=== PATIENT | male | born 1950 | race Caucasian/White ===

== ENCOUNTER 2022-12-29 14:29 | Outpatient (OUT) | payer SELFPAY ==
--- NOTE | 2022-12-29 | XR_ITS ---
The [address] [address] Patient Name: SALINAS FLOYD MRN: [id number] date: 1950 Sex: M Assigned Patient Location: [facility] Current Patient Location: Accession/Order Number: [id number] Exam Date: 12/29/2022 15:42 Report Date: 12/30/2022 06:53 At the request of: TAMMY ROY Procedure: XR foot RT min 3V PROCEDURE: XR foot RT min 3V HISTORY: RIGHT FOOT PAIN COMPARISON: None. FINDINGS: BONES:Mild joint space narrowing and periarticular degenerative osteophytes involving the first metatarsophalangeal joint. No fracture, dislocation, bone lesion. SOFT TISSUES:No visible soft tissue swelling. EFFUSION:None visible. OTHER: Atherosclerotic disease. XR/XR foot RT min 3V IMPRESSION: 1. Mild/moderate degenerative joint disease of the first metatarsophalangeal joint. Electronically authenticated by: DAVID HAGEN Date: 12/30/2022 06:53
== END 2022-12-29 14:30 | disposition home or self-care (01) ==
LOC: RAD 14:30
PROVIDERS: Visit Provider Podiatrist Foot & Ankle Surgery
DX: M21.621 Bunionette of right foot (principal)
CPT/HCPCS: 73630

== ENCOUNTER 2023-02-21 12:33 | Outpatient (OUT) | payer MEDICARE, OTHER, SELFPAY ==
--- NOTE | 2023-02-21 13:20 | PM.PRESUREVA ---
History of Present Illness History of Present Illness Chief complaint: bunion right foot, hammer toes right Narrative: Patient presents for preadmission testing with a chief complaint of right foot and toe pain for several months. He states he's been struggling with cellulitis on this extremity as well but he feels this is resolved at this time. The patient states he does have neuropathy with decreased sensation to his feet. He denies extremity weakness. Review of Systems ROS Narrative REVIEW OF SYSTEMS: Negative except as stated in HPI, ten or more systems reviewed. Constitutional: No fever , chills, weakness ENT: No sore throat or epistaxis Cardiovascular: No edema, chest pain, palpitations, or activity intolerance Respiratory: No shortness of breath, cough, or wheezing Gastrointestinal: No abdominal pain, constipation, diarrhea, or vomiting Genitourinary: No dysuria or hematuria Neurological: No numbness, tingling, weakness, or headache Psychiatric: No mood changes PFSH [facility] Medical History (Updated 02/21/23 @ 13:20 by Janey Norman NP) Arthritis ?M19.90 - Unspecified osteoarthritis, unspecified site (ICD-10) Bunionette ?M21.629 - Bunionette of unspecified foot (ICD-10) Cellulitis of lower extremity ?L03.119 - Cellulitis of unspecified part of limb (ICD-10) Colon polyp ?K63.5 - Polyp of colon (ICD-10) COVID-19 ?U07.1 - COVID-19 (ICD-10) Hammertoe ?M20.40 - Other hammer toe(s) (acquired), unspecified foot (ICD-10) High cholesterol ?E78.00 - Pure hypercholesterolemia, unspecified (ICD-10) Hypertension ?I10 - Essential (primary) hypertension (ICD-10) Neuropathy ?G62.9 - Polyneuropathy, unspecified (ICD-10) Peripheral vascular disease ?I73.9 - Peripheral vascular disease, unspecified (ICD-10) Seasonal allergies ?J30.2 - Other seasonal allergic rhinitis (ICD-10) Typical angina ?I20.9 - Angina pectoris, unspecified (ICD-10) Surgical History (Updated 02/21/23 @ 13:00 by Janey Norman NP) H/O colectomy (2003) ?Z90.49 - Acquired absence of other specified parts of digestive tract (ICD-10) History of ankle surgery ?Z98.890 - Other specified postprocedural states (ICD-10) History of cardiac catheterization ?Z98.890 - Other specified postprocedural states (ICD-10) History of carpal tunnel release ?Z98.890 - Other specified postprocedural states (ICD-10) History of colonoscopy ?Z98.890 - Other specified postprocedural states (ICD-10) S/P cataract extraction and insertion of intraocular lens ?Z98.49 - Cataract extraction status, unspecified eye (ICD-10) ?Z96.1 - Presence of intraocular lens (ICD-10) Family History (Updated 02/21/23 @ 13:00 by Janey Norman NP) Other Family history of breast cancer Family history of heart disease Family history of stroke Social History (Updated 02/21/23 @ 12:55 by Janey Norman NP) Within the past year, how often did you have a drink containing alcohol: monthly or less Smoking status: Never smoker Non-prescribed substance use: denies use Highest level of school completed/degree received: high school graduate Meds Home Medications and Allergies Home Medications Medication Instructions Recorded Confirmed Type acetaminophen 500 mg tablet 500 mg PO Q6H PRN pain 02/21/23 02/21/23 History atorvastatin 40 mg tablet 40 mg PO DAILY 02/21/23 02/21/23 History gabapentin 300 mg capsule 300 mg PO Q12H 02/21/23 02/21/23 History isosorbide mononitrate 30 mg 30 mg PO DAILY 02/21/23 02/21/23 History tablet,extended release 24 hr metoprolol tartrate 25 mg tablet 25 mg PO BID 02/21/23 02/21/23 History nitroglycerin 0.4 mg sublingual 0.4 mg buccal Q5M PRN chest pain 02/21/23 02/21/23 History tablet Allergies Allergy/AdvReac Type Severity Reaction Status Date / Time No Known Drug Allergies Allergy Verified 02/21/23 12:51 Exam Narrative Exam Narrative: Constitutional: Awake, alert, comfortable, well-appearing, nontoxic, interactive, vital signs as charted Head: Normocephalic, atraumatic Neck: Supple, normal appearance, normal range of motion, no meningeal signs, no lymphadenopathy Respiratory: No respiratory distress, breath sounds clear Cardiovascular: Regular rate and rhythm, strong and regular heart tones Musculoskeletal: Right foot with toe contractures and he bunion which is tender to palpation, good capillary refill, sensation diminished Psychiatric: Oriented ?3, normal affect Assessment and Plan Assessment and Plan (1) Bunionette: (2) Hammertoe: Plan Correction of tailor's bunionette right foot, arthroplasties of 2nd, 3rd, 4th, and 5th digits right foot scheduled with Dr. Yanes 03/07/2023.
[2023-02-21 13:27] LABS: Anion Gap 13.1; BUN Creatinine Ratio 11.9; Carbon Dioxide 27.6 mmol/L (21.0-32.0); Chloride 103 mmol/L (98-107); Estimated GFR (African America >60 (>=60); Estimated GFR (Non-African Ame 56 (>=60); Glucose 129 mg/dL (74-106); Potassium 3.7 mmol/L (3.5-5.1); Sodium 140 mmol/L (136-145)
--- OUTSIDE RECORDS SUMMARY | 2023-03-22 20:38 | XMS_ITS | CCD ---
Author Name Unknown Address [address] [place] [address] Organization [facility] Care Team Providers Care Drilling Fluids Specialist Name Role Phone FAVIOLA NOLAN Unavailable Unavailable FAVIOLA NOLAN Unavailable Unavailable MUTGI, CHAVEZ Unavailable Unavailable EITAN, CHAVEZ Unavailable Unavailable Taras Wright Primary Care Provider TARAS WRIGHT Primary Care Unavailable JEFFERSON DEWITT Attending Unavailable TARAS WRIGHT Primary Care Unavailable JEFFERSON DEWITT Attending Unavailable TARAS WRIGHT Primary Care Unavailable JEFFERSON DEWITT Referring Unavailable TARAS WRIGHT Primary Care Unavailable TAMMY ROY Admitting Unavailable TAMMY ROY Attending Unavailable Allergies Allergy Classification Reported Allergen(s) Allergy Type Date of Onset Reaction(s) Facility (1 source) 26319,00; Translations: [13344,00] Propensity to adverse reactions (disorder) 0 [facility] Medications Completed/Discontinued Medications Medication Drug Class(es) Dates Sig (Normalized) Sig (Original) aspirin 81 mg delayed release oral tablet (1 source) Platelet Aggregation Inhibitor, Nonsteroidal Anti-inflammatory Drug Start: 11-18-2021 aspirin, enteric coated (ASPIRIN, ENTERIC COATED) 81 mg EC tablet Take 81 mg by mouth. 0 11/18/2021 Active Comment on above: Take 81 mg by mouth. atorvastatin 40 mg oral tablet (1 source) HMG-CoA Reductase Inhibitor Start: 02-10-2022 atorvastatin (LIPITOR) 40 mg tablet empagliflozin 10 mg oral tablet (1 source) Sodium-Glucose Cotransporter 2 Inhibitor Start: 12-03-2021 empagliflozin (JARDIANCE) 10 mg tablet Take 10 mg by mouth. 0 12/03/2021 Active Comment on above: Take 10 mg by mouth. furosemide 40 mg oral tablet (1 source) Loop Diuretic Start: 09-11-2020 furosemide (LA SIX) 40 mg tablet Take by mouth. 0 09/11/2020 Active Comment on above: Take by mouth. gabapentin 300 mg oral capsule (1 source) Anti-epileptic Agent take 1 capsule by mouth twice daily gabapentin (NEURONTIN) 300 mg capsule Take 300 mg by mouth twice daily. 0 Active Comment on above: Take 300 mg by mouth twice daily. 24 hr isosorbide mononitrate 30 mg extended release oral tablet (1 source) Nitrate Vasodilator Start: 02-10-2022 isosorbide mononitrate ER (IMDUR) 30 mg 24 hr tablet metoprolol tartrate 25 mg oral tablet (1 source) beta-Adrenergic Marshall Start: 02-10-2022 take 1 tablet by mouth once daily in the morning, then take 1 tablet by mouth once daily at bedtime metoprolol tartrate, short acting, (LOPRESSOR) 25 mg tablet TAKE 1 TABLET BY MOUTH EVERY MORNING AND 1 EVERY NIGHT AT BEDTIME 0 02/10/2022 Active Comment on above: TAKE 1 TABLET BY MYRNA TH EVERY MORNING AND 1 EVERY NIGHT AT BEDTIME naproxen 250 mg oral tablet (1 source) Nonsteroidal Anti-inflammatory Drug naproxen (NAPROSYN) 250 mg tablet Take 250 mg by mouth. 0 Active Comment on above: Take 250 mg by mouth . Problems Active Problems Problem Classification Problem Date Documented Da te Episodic/Chronic Neoplasms of unspecified nature or uncertain behavior (2 sources) Monoclonal gammopathy of uncertain significance; Translations: [Monoclonal gammopathy] Onset: 04-20-2018 Chronic Other hereditary and degenerative nervous system conditions (1 source) Idiopathic peripheral autonomic neuropathy; Translations: [Other idiopathic peripheral autonomic neuropathy] Chronic Other nervous system disorders (1 source) Neuropathy; Translations: [Polyneuropathy, unspecified] Onset: 04-20-2018 04-20-2018 Chronic Past or Other Problems Problem Classification Problem Date Documented Da te Episodic/Chronic Other aftercare (5 sources) Follow-up examination, following other surgery; Translations: [Encounter for follow-up examination after completed treatment for conditions other than malignant neoplasm] Onset: 07-19-2014 Episodic Other and unspecified benign neoplasm (2 sources) Personal history of colonic polyps; Translations: [Personal history of colonic polyps] Onset: 07-19-2014 Episodic Unclassified (1 source) FOLLOW-UP SURGERY NEC; Translations: [FOLLOW-UP SURGERY NEC] Onset: 07-19-2014 Results Test Name Value Interpretation Reference Range Rere valencia CNOVSMich 04-16-2022 CNOVSP Visit (SP) Office ([facility]) MORRIS BELLE ([id number]) 1950 M Date Time Provider Department 04/16/22 10:00 AM JEFFERSON DEWITT During your visit today, we recorded the following information about you: Temperature Pulse Respiration Blood pressure 97.2 degrees 50/minute 16/minute 133/65 Weight Height 94.2 kg 1.676 m Jefferson Dewitt MD 04/16/2022 10:30 AM Addendum NAME: Morris Belle CLINIC NO.: [id number] DATE OF SERVICE: April 16, 2022 (Bhupendra) Some elements in this clinic note that are critical to medical decision making have been carefully reviewed and included from a prior clinic note dated: April 24, 2021 (Bhupendra) Referring Provider: Taras Wright Additional Clinicians involved in Morris Belle's care: CC: Follow up visit ASSESSMENT: 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 No signs of hypercalcemia, renal failure, anemia, bony lesions. mprotein is low at 0.31 IgG kappa and K/L ratio is now slightly increased. Very unlikely his neuropathy is paraprotein related. Previously IgM was normal. Will monitor Neuropathy No change in neuropathy, no obvious cause. PLAN: 1. Labs 1 week prior to return 2. RTC 1 year HPI: Updated Visit, April 16, 2022: September 2021 was riding his bike and had chest pain. Found a coronary blockage but wasn't stentable. Currently finishing 8 more weeks of cardiac rehab (out of 36). Reviewed labs which remain stable. Occasionally gets an itch that responds to Neurontin. Updated Visit, April 24, 2021: Still very active riding his bike and al his labs are stable including M-Christos. Neuropathy is unchanged overall perhaps a little worse. Affects him worse at night - feels swollen even though it's not. Updated Visit, April 24, 2020: Morris is a 70 year old male who was found to have a MGUS during workup for peripheral neuropathy. He has been followed for several years and his lab results have all been stable except WBC which is elevated. However, his adult son was sick and he may have picked up a upper respiratory infection which he is still suffering through Neuropathy perhaps a little worse - will consider taking gluten out of his diet. We explored the possibility of sleep apnea but he has very few symptoms except for mild daytime somnolence. His neuropathy is consistent with numbness in his feet becca bilateral stocking distribution and he has occasional paresthesias running down his right leg. 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 REVIEW OF SYSTEMS Per HPI and otherwise negative by full review of organ systems. ECOG PERFORMANCE STATUS: 0 PHYSICAL EXAMINATION: Vitals: BP 133/65 Pulse 50 Temp (Src) 97.2 (Temporal) Resp 16 Ht 5' 5.984 (1.68m) Wt 207 lb 9.6 oz (94.2kg) SpO2 94% BMI 33.52 kg/(m2). Body surface area is 2.09 meters squared. Exam limited to gross visualization where appropriate due to COVID-19. Gen.: This is an age-appropriate patient in no acute distress. Head: Appears atraumatic with no visible lesions. Eyes: Pupils equally round and reactive to light, extraocular muscles are intact. Neck: Supple. Mouth: Masked. Respiratory: Appears to be respiring comfortably. Neurologic: Nonfocal to gross visualization. Alert and oriented ?3. Psychiatric: No evidence of inappropriate anxiety or depression. Skin: Visible areas of skin without rash, lesions, wounds or petechiae. ALLERGIES: ALLERGIES No Known Allergies MEDICATIONS: aspirin, enteric coated (ASPIRIN, ENTERIC COATED) 81 mg EC tablet Take 81 mg by mouth. atorvastatin (LIPITOR) 40 mg tablet isosorbide mononitrate ER (IMDUR) 30 mg 24 hr tablet metoprolol tartrate, short acting, (LOPRESSOR) 25 mg tablet TAKE 1 TABLET BY MOUTH EVERY MORNING AND 1 EVERY NIGHT AT BEDTIME naproxen (NAPROSYN) 250 mg tablet Take 250 mg by mouth. gabapentin (NEURONTIN) 300 mg capsule Take 300 mg by mouth twice daily. empagliflozin (JARDIANCE) 10 mg tablet Take 10 mg by mouth. furosemide (LASIX) 40 mg tablet Take by mouth. LABORATORY VALUES: WBC (k/uL) Date Value 04/09/2022 6.52 RBC (m/uL) Date Value 04/09/2022 4.52 Hemoglobin (g/dL) Date Value 04/09/2022 13.5 Hematocrit (%) Date Value 04/09/2022 40.4 MCV (fL) Date Value 04/09/2022 89.4 MCH (pg) Date Value 04/09/2022 29.9 MCHC (g/dL) Date Value 04/09/2022 33.4 RDW-CV (%) Date Value 04/09/2022 12.9 Platelet Count (k/uL) Date Value 04/09/2022 172 MPV (fL) Date Value 04/09/2022 10.9 Glucose (mg/dL) Date Value 04/09/2022 117 (H) BUN (mg/dL) Date Value 04/09/2022 22 Creatinine (mg/dL) Date Value 04/09/2022 1.14 Sodium (mmol/L) Date Value 04/09/2022 139 Potassium (mmol/L) Date Value 04/09/2022 4.3 Chloride (mmol/L) Date Value (more content not included)... Normal [facility] B2 Microglob SerPl-mCncon Kfnt-2-Kisxkypuaqasg [Mass/Vol] 2.4 ug/mL Normal <3.1 [facility] Comment on above: Order Comment: Speci men Type: BLOOD SPECIMEN Ordering Facility: [facility] Address: [address] [id number] Result Comment: Beta -2 Microglobulin test is performed using the [employer] immunoturbidimetric method. Results obtained with different methods or kits cannot be used interchangeably. Performed By: #### 1 952-1, 3016-3 #### [facility] CLIA [id number] [address] [facility] DESK [id number] CBC W Auto Differential pane l (Bld)on 04-09-2022 Basophils (Bld) [#/Vol] 0.08 10*3/uL Normal <0.11 [facility] Comment on above: Order Comment: Speci men Type: BLOOD SPECIMEN Ordering Facility: [facility] Address: [address] [address] Performed By: #### 5 7021-8 #### [facility] CLIA [id number] [address] [place] [address]2627 Basophils/100 WBC (Bld) 1.2 % Normal [facility] Comment on above: Order Comment: Speci men Type: BLOOD SPECIMEN Ordering Facility: [facility] Address: [address] [place] [address] Performed By: #### 5 7021-8 #### [facility] CLIA [id number] [address] [place] [address] 46775 Differential cell count method Nom (Bld) Auto Normal [facility] Comment on above: Order Comment: Speci men Type: BLOOD SPECIMEN Ordering Facility: [facility] Address: [address] [address] Performed By: #### 5 7021-8 #### [facility] CLIA [id number] [address] [place] [address] 20128 Eosinophils (Bld) [#/Vol] 0.27 10*3/uL Normal <0.46 [facility] Comment on above: Order Comment: Speci men Type: BLOOD SPECIMEN Ordering Facility: [facility] Address: [address] [address] Performed By: #### 5 7021-8 #### [facility] CLIA [id number] [address] [place] [address] 75638 Eosinophils/100 WBC (Bld) 4.1 % Normal [facility] Comment on above: Order Comment: Speci men Type: BLOOD SPECIMEN Ordering Facility: [facility] Address: [address] [address] Performed By: #### 5 7021-8 #### [facility] CLIA [id number] [address] [place] [address] Erythrocyte distribution wid th (RBC) [Ratio] 12.9 % Normal 11.5-15.0 [facility] Comment on above: Order Comment: Speci men Type: BLOOD SPECIMEN Ordering Facility: [facility] Address: [address] [place] [address] Performed By: #### 5 7021-8 #### [facility] CLIA [id number] [address] [place] [address] 64031 Hematocrit (Bld) [Volume fraction] 40.4 % Normal 3 9.0-51.0 [facility] Comment on above: Order Comment: Speci men Type: BLOOD SPECIMEN Ordering Facility: [facility] Address: [address] [place] [address] Performed By: #### 5 7021-8 #### [facility] CLIA [id number] [address] [place] [address] 98302 Hemoglobin (Bld) [Mass/Vol] 13.5 g/dL Normal 13.0-17. 0 [facility] Comment on above: Order Comment: Speci men Type: BLOOD SPECIMEN Ordering Facility: [facility] Address: [address] [place] [address] Performed By: #### 5 7021-8 #### [facility] CLIA [id number] [address] [place] [address] 62032 Immature granulocytes (Bld) [#/Vol] 10*3/uL Normal <0.10 [facility] Comment on above: Order Comment: Speci men Type: BLOOD SPECIMEN Ordering Facility: [facility] Address: [address] [place], [place] [address] Performed By: #### 5 7021-8 #### [facility] CLIA [id number] [address] [place] [address] 58829 Immature granulocytes/100 WBC (Bld) 0.3 % Normal [facility] Comment on above: Order Comment: Speci men Type: BLOOD SPECIMEN Ordering Facility: [facility] Address: [address] [address] Performed By: #### 5 7021-8 #### [facility] CLIA [id number] [address] [place] [address] 77382 Lymphocytes (Bld) [#/Vol] 2.90 10*3/uL Normal 1.00-4.0 0 [facility] Comment on above: Order Comment: Speci men Type: BLOOD SPECIMEN Ordering Facility: [facility] Address: [address] [address] Performed By: #### 5 7021-8 #### [facility] CLIA [id number] [address] [place] [address] 80777 Lymphocytes/100 WBC (Bld) 44.5 % Normal [facility] Comment on above: Order Comment: Speci men Type: BLOOD SPECIMEN Ordering Facility: [facility] Address: [address] [address] Performed By: #### 5 7021-8 #### [facility] CLIA [id number] [address] [place] [address] 99257 MCH (RBC) [Entitic mass] 29.9 pg Normal 26.0-34.0 [facility] Comment on above: Order Comment: Speci men Type: BLOOD SPECIMEN Ordering Facility: [facility] Address: [address] [address] Performed By: #### 5 7021-8 #### [facility] CLIA [id number] [address] [place] [address] 71993 MCHC (RBC) [Mass/Vol] 33.4 g/dL Normal 30.5-36.0 [facility] Comment on above: Order Comment: Speci men Type: BLOOD SPECIMEN Ordering Facility: [facility] Address: [address] [address] Performed By: #### 5 7021-8 #### [facility] CLIA [id number] [address] [place] [address] 15825 MCV (RBC) [Entitic vol] 89.4 fL Normal 80.0-100.0 [facility] Comment on above: Order Comment: Speci men Type: BLOOD SPECIMEN Ordering Facility: [facility] Address: [address] [address] Performed By: #### 5 7021-8 #### [facility] CLIA [id number] [address] [place] [address] 06359 Monocytes (Bld) [#/Vol] 0.80 10*3/uL Normal <0.87 [facility] Comment on above: Order Comment: Speci men Type: BLOOD SPECIMEN Ordering Facility: [facility] Address: [address] [address] Performed By: #### 5 7021-8 #### [facility] CLIA [id number] [address] [place] [address] 56202 Monocytes/100 WBC (Bld) 12.3 % Normal [facility] Comment on above: Order Comment: Speci men Type: BLOOD SPECIMEN Ordering Facility: [facility] Address: [address] [address] Performed By: #### 5 7021-8 #### [facility] CLIA [id number] [address] [place] [address] 21550 Neutrophils (Bld) [#/Vol] 2.45 10*3/uL Normal 1.45-7.5 0 [facility] Comment on above: Order Comment: Speci men Type: BLOOD SPECIMEN Ordering Facility: [facility] Address: [address] [address] Performed By: #### 5 7021-8 #### [facility] CLIA [id number] [address] [place] [address] 29696 Neutrophils/100 WBC (Bld) 37.6 % Normal [facility] Comment on above: Order Comment: Speci men Type: BLOOD SPECIMEN Ordering Facility: [facility] Address: [address] [place] [address] Performed By: #### 5 7021-8 #### [facility] CLIA [id number] [address] [place] [address] 24072 Nucleated RBC (Bld) [#/Vol] 10*3/uL Normal <0.01 [facility] Comment on above: Order Comment: Speci men Type: BLOOD SPECIMEN Ordering Facility: [facility] Address: [address] [address] Performed By: #### 5 7021-8 #### [facility] CLIA [id number] [address] [place] [address] 11808 Nucleated RBC/100 WBC (Bld) [Ratio] 0.0 /100 WBC Normal [facility] Comment on above: Order Comment: Speci men Type: BLOOD SPECIMEN Ordering Facility: [facility] Address: [address] [address] Performed By: #### 5 7021-8 #### [facility] CLIA [id number] [address] [place] [address] 68174 Platelet mean volume (Bld) [Entitic vol] 10.9 fL Normal 9.0-12.7 [facility] Comment on above: Order Comment: Speci men Type: BLOOD SPECIMEN Ordering Facility: [facility] Address: [address] [address] Performed By: #### 5 7021-8 #### [facility] CLIA [id number] [address] [place] [address] 27344 Platelets (Bld) [#/Vol] 172 10*3/uL Normal 150-400 [facility] Comment on above: Order Comment: Speci men Type: BLOOD SPECIMEN Ordering Facility: [facility] Address: [address] Performed By: #### 5 7021-8 #### [facility] CLIA [id number] [address] [place] [address] 48413 RBC (Bld) [#/Vol] 4.52 10*6/uL Normal 4.20-6.00 [facility] Comment on above: Order Comment: Speci men Type: BLOOD SPECIMEN Ordering Facility: [facility] Address: [address] Performed By: #### 5 7021-8 #### [facility] CLIA [id number] [address] [place] [address] 10449 WBC (Bld) [#/Vol] 6.52 10*3/uL Normal 3.70-11.00 [facility] Comment on above: Order Comment: Speci men Type: BLOOD SPECIMEN Ordering Facility: [facility] Address: [address] Performed By: #### 5 7021-8 #### [facility] CLIA [id number] [address] [place] [address] 39180 Calcium.ionized [Moles/Vol]o n 04-09-2022 Calcium.ionized (Bld) [Mass/Vol] 1.06 mmol/L Low 1. 08-1.30 [facility] Comment on above: Order Comment: Speci men Type: BLOOD SPECIMEN Ordering Facility: [facility] Address: [address] Performed By: #### 1 995-0 #### [facility] CLIA [id number] [address] [place] [address] [place] Calcium.ionized adjusted to pH 7.4 (Bld) [Moles/Vol] 1.02 mmol/L Low 1.08-1.30 [facility] Comment on above: Order Comment: Speci men Type: BLOOD SPECIMEN Ordering Facility: [facility] Address: [address] Performed By: #### 1 995-0 #### [facility] CLIA [id number] [address] [place] [address] [place] Comprehensive metabolic 2000 panelon 04-09-2022 Albumin [Mass/Vol] 4.5 g/dL Normal 3.9-4.9 [facility] Comment on above: Order Comment: Speci men Type: BLOOD SPECIMEN Ordering Facility: [facility] Address: [address] Performed By: #### 2 885-2, 2283-11, 2131-12 #### [facility] CLIA [id number] [address] [place] [address] [place] ALP [Catalytic activity/Vol] 57 U/L Normal 38-113 [facility] Comment on above: Order Comment: Speci men Type: BLOOD SPECIMEN Ordering Facility: [facility] Address: [address] Performed By: #### 2 885-2, 2283-11, 2131-12 #### [facility] CLIA [id number] [address] [place] [address] [place] ALT [Catalytic activity/Vol] 27 U/L Normal 10-54 [facility] Comment on above: Order Comment: Speci men Type: BLOOD SPECIMEN Ordering Facility: [facility] Address: [address] [place], [place] [address] Performed By: #### 2 885-2, 2283-11, 2131-12 #### [facility] CLIA [id number] [address] [place] [address] [place] Anion gap [Moles/Vol] 8 mmol/L Low 9-18 [facility] Comment on above: Order Comment: Speci men Type: BLOOD SPECIMEN Ordering Facility: [facility] Address: [address] Performed By: #### 2 885-2, 2283-11, 2131-12 #### [facility] CLIA [id number] [address] [place] [address] [place] AST [Catalytic activity/Vol] 32 U/L Normal 14-40 [facility] Comment on above: Order Comment: Speci men Type: BLOOD SPECIMEN Ordering Facility: [facility] Address: [address] [id number] Performed By: #### 2 885-2, 8, 2131-12 #### [facility] CLIA [id number] [address] [place], [place] [address] [place] Bilirubin [Mass/Vol] 0.5 mg/dL Normal 0.2-1.3 [facility] Comment on above: Order Comment: Speci men Type: BLOOD SPECIMEN Ordering Facility: [facility] Address: [address] [place] [address] Performed By: #### 2 885-2, 8, 2131-12 #### [facility] CLIA [id number] [address] [place] [address] [place] Calcium [Mass/Vol] 8.0 mg/dL Low 8.5-10.2 [facility] Comment on above: Order Comment: Speci men Type: BLOOD SPECIMEN Ordering Facility: [facility] Address: [address] [place] [address] Performed By: #### 2 885-2, 2283-11, 2131-12 #### [facility] CLIA [id number] [address] [place] [address] [place] Chloride [Moles/Vol] 105 mmol/L Normal 97-105 [facility] Comment on above: Order Comment: Speci men Type: BLOOD SPECIMEN Ordering Facility: [facility] Address: [address] [id number] Performed By: #### 2 885-2, 8, 2131-12 #### [facility] CLIA [id number] [address] [place], [place] [address] [place] CO2 [Moles/Vol] 26 mmol/L Normal 22-30 [facility] Comment on above: Order Comment: Speci men Type: BLOOD SPECIMEN Ordering Facility: [facility] Address: [address] [place] [address] Performed By: #### 2 885-2, 4-8, 2131-12 #### [facility] CLIA [id number] [address] [place] [address] [place] Creatinine [Mass/Vol] 1.14 mg/dL Normal 0.73-1.22 [facility] Comment on above: Order Comment: Zeeshan bolden Type: BLOOD SPECIMEN Ordering Facility: [facility] Address: [address] [address] Performed By: #### 2 885-2, 8, 2131-12 #### [facility] CLIA [id number] [address] [place] [address] [place] ESTIMATED GLOMERULAR FILTRATION RATE 69 mL/min/1.73m??? Normal >=60 [facility] Comment on above: Order Comment: Zeeshan bolden Type: BLOOD SPECIMEN Ordering Facility: [facility] Address: [address] [place] [address] Result Comment: Comfort mated Glomerular Filtration Rate (eGFR) is calculated using the 2020 CKD-EPI creatinine equation. This equation utilizes serum creatinine, sex, and age as parameters. The creatinine assay has traceable calibration to isotope dilution-mass spectrometry. Refer to KDIGO guidelines for clinical interpretation. In patients with unstable renal function, e.g. those with acute kidney injury, the eGFR may not accurately reflect actual GFR. Performed By: #### 2 885-2, 8, 2131-12 #### [facility] CLIA [id number] [address] [place] [address] [place] Glucose [Mass/Vol] 117 mg/dL High 74-99 [facility] Comment on above: Order Comment: Zeeshan bolden Type: BLOOD SPECIMEN Ordering Facility: [facility] Address: [address] Result Comment: The [place] Diabetes Association (ADA) provides guidance for cutoff values for fasting glucose and random glucose. The ADA defines fasting as no caloric intake for at least 8 hours. Fasting plasma glucose results between 100 to 125 mg/dL indicate increased risk for diabetes (prediabetes). Fasting plasma glucose results greater than or equal to 126 mg/dL meet the criteria for diagnosis of diabetes. In the absence of unequivocal hyperglycemia, results should be confirmed by repeat testing. In a patient with classic symptoms of hyperglycemia or hyperglycemic crisis, random plasma glucose results greater than or equal to 200 mg/dL meet the criteria for diagnosis of diabetes. Reference: Standards of Medical Care in Diabetes 2016, [place] Diabetes Association. Diabetes Care. 2016.39(Suppl 1). Performed By: #### 2 885-2, 2283-11, 2131-12 #### [facility] CLIA [id number] [address] [place] [address] [place] Potassium [Moles/Vol] 4.3 mmol/L Normal 3.7-5.1 [facility] Comment on above: Order Comment: Speci men Type: BLOOD SPECIMEN Ordering Facility: [facility] Address: [address] Performed By: #### 2 885-2, 2283-11, 2131-12 #### [facility] CLIA [id number] [address] [place] [address] [place] Protein [Mass/Vol] 7.0 g/dL Normal 6.3-8.0 [facility] Comment on above: Order Comment: Speci men Type: BLOOD SPECIMEN Ordering Facility: [facility] Address: [address] Performed By: #### 2 885-2, 2283-11, 2131-12 #### [facility] CLIA [id number] [address] [place] [address] [place] Sodium [Moles/Vol] 139 mmol/L Normal 136-144 [facility] Comment on above: Order Comment: Speci men Type: BLOOD SPECIMEN Ordering Facility: [facility] Address: [address] [place] [address] Performed By: #### 2 885-2, 2283-11, 2131-12 #### [facility] CLIA [id number] [address] [place] [address] [place] Urea nitrogen [Mass/Vol] 22 mg/dL Normal 9-24 [facility] [place] [facility] Comment on above: Order Comment: Speci yuan Type: BLOOD SPECIMEN Ordering Facility: [facility] Address: [address] [place] [address] Performed By: #### 2 885-2, 8, 2131-12 #### [facility] CLIA [id number] [address] [place] [address] [place] Folate [facility] 04-[facility]-19 23 Folate [Mass/Vol] ng/mL Normal >4.7 [facility] Comment on above: Order Comment: Specgiulia bolden Type: BLOOD SPECIMEN Ordering Facility: [facility] Address: [address] [place] [address] Result Comment: A re sult of > 20 ng/mL is not necessarily indicative of a pathologic or treatable condition: it reflects a limitation of the test methodology. Assay reference range: 4.8 to 24.2 ng/mL. Suitable for detection of folate deficiency. Reference: Folate III (Folate III) [package insert V 1.0 Moroccan]. [facility], [place], [place]: February 2015. Performed By: #### 2 885-2, 8, 2131-12 #### [facility] CLIA [id number] [address] [place] [address] [place] IMMUNOFIXATION SCREEN, SERUM on 04-09-2022 INTERPRETATION (MPA) Atypical restricted bands are present in the IgG and kappa regions. Consistent with IgG kappa monoclonal gammopathy. Normal [facility] Comment on above: Order Comment: Speci men Type: BLOOD SPECIMEN Ordering Facility: [facility] Address: [address] [place] [address] Performed By: #### I [facility] #### [facility] CLIA [id number] [id number] MPA RESULT M protein is present. Abnormal No M p rotein is identified. [facility] Comment on above: Order Comment: Speci men Type: BLOOD SPECIMEN Ordering Facility: [facility] Address: [address] [place], [place] [address] Performed By: #### I FESC #### [facility] CLIA [id number] [address] STAFF REVIEW (MPA) Reviewed by Annel Frye M.D., Ph.D Normal [facility] Comment on above: Order Comment: Speci men Type: BLOOD SPECIMEN Ordering Facility: [facility] Address: [address] [place] [address] Performed By: #### I FES #### [facility] CLIA [id number] [address] [place] [address] [place] IMMUNOGLOBULINS GAMon 2022 IgA [Mass/Vol] 244 mg/dL Normal 70-400 [facility] Comment on above: Order Comment: Speci men Type: BLOOD SPECIMEN Ordering Facility: [facility] Address: [address] [place], [place] [address] Performed By: #### S ERIMM #### [facility] CLIA [id number] [address] [place] [address] [place] IgG [Mass/Vol] 1005 mg/dL Normal 700-1600 [facility] Comment on above: Order Comment: Speci men Type: BLOOD SPECIMEN Ordering Facility: [facility] Address: [address] [place], [place] [address] Performed By: #### S ERIMM #### [facility] CLIA [id number] [address] [place] [address] [place] IgM [Mass/Vol] 39 mg/dL Low 40-230 [facility] Comment on above: Order Comment: Speci men Type: BLOOD SPECIMEN Ordering Facility: [facility] Address: [address] [place], [place] [address] Performed By: #### S ERMARILYNM #### [facility] CLIA [id number] [address] [place] [address] [place] KAPPA/SERRATO,FREE,SERon 2022 Immunoglobulin light chains.kappa.free (S) [Mass/Vol] 26.8 mg/L High 3.3-19.4 [facility] Comment on above: Order Comment: Speci men Type: BLOOD SPECIMEN Ordering Facility: [facility] Address: [address] [place] [address] Result Comment: Rare ly, increased serum free light chains levels may not be detected or accurately quantified due to prozone phenomenon or in high viscosity samples using this immunoturbidimetric assay. Correlation with other laboratory results and clinical findings is recommended. The [place] Free Light Chain was performed using the Binding Site Optilite immunoturbidimetric method. Result obtained with different assay methods or kits cannot be used interchangeably. Performed By: #### 2 885-2, 2284-8, 2131-12 #### [facility] CLIA [id number] [address] [place] [address] [place] Immunoglobulin light chains.kappa/Immunoglobulin light chains.lambda (S) [Mass ratio] 1.68 High 0.26-1.[address] [facility] Comment on above: Order Comment: Speci men Type: BLOOD SPECIMEN Ordering Facility: [facility] Address: [address] [place], [place] [address] Performed By: #### 2 885-2, 2284-8, 2131-12 #### [facility] CLIA [id number] [address] [place] [address] [place] Immunoglobulin light chains.lambda.free [Mass/Vol] 16.0 mg/L Normal 5.7-26.3 [facility] Comment on above: Order Comment: Speci men Type: BLOOD SPECIMEN Ordering Facility: [facility] Address: [address] [place], [place] [address] Result Comment: Rare ly, increased serum free light chains levels may not be detected or accurately quantified due to prozone phenomenon or in high viscosity samples using this immunoturbidimetric assay. Correlation with other laboratory results and clinical findings is recommended. The [place] Free Light Chain was performed using the Binding Site Optilite immunoturbidimetric method. Result obtained with different assay methods or kits cannot be used interchangeably. Performed By: #### 2 885-2, 22848, 2131-12 #### [facility] CLIA [id number] [address] [place] [address] [place] LDH SerPl-cCncon 04-09-2022 LDH [Catalytic activity/Vol] 290 U/L High 135-225 [facility] Comment on above: Order Comment: Zeeshan bolden Type: BLOOD SPECIMEN Ordering Facility: [facility] Address: [address] [place] [address] Result Comment: Hemo lysis present. The origin of the hemolysis, in vitro versus an in vivo hemolytic process, cannot be distinguished via this assay alone. In vitro hemolysis may lead to non-physiological (spurious) elevation in lactate dehydrogenase (LDH) results. The result should be interpreted in context of the clinical setting and other test results. Suggest reorder as clinically indicated. Performed By: #### 2 885-2, 2283-11, 2131-12 #### [facility] CLIA [id number] [address] [place] [address] [place] PROTEIN ELECTROPHORESIS SERU M (P)on 04-09-2022 Albumin [Mass/Vol] 4.15 g/dL Normal 3.43-5.41 [facility] Comment on above: Order Comment: Zeeshan bolden Type: BLOOD SPECIMEN Ordering Facility: [facility] Address: [address] [place] [address] Performed By: #### L [id number] #### [facility] CLIA [id number] [address] [place] [address] [place] Alpha 1 globulin Elph [Mass/Vol] 0.23 g/dL Normal 0.18-0.43 [facility] Comment on above: Order Comment: Speci men Type: BLOOD SPECIMEN Ordering Facility: [facility] Address: [address] Performed By: #### L [id number] #### [facility] CLIA [id number] [address] [place] [address] [place] Alpha 2 globulin Elph [Mass/Vol] 0.80 g/dL Normal 0.42-0.98 [facility] Comment on above: Order Comment: Speci men Type: BLOOD SPECIMEN Ordering Facility: [facility] Address: [address] Performed By: #### L [id number] #### [facility] CLIA [id number] [address] [place] [address] [place] Beta globulin Elph [Mass/Vol] 0.83 g/dL Normal 0.61-1 .17 [facility] Comment on above: Order Comment: Speci men Type: BLOOD SPECIMEN Ordering Facility: [facility] Address: [address] Performed By: #### L [id number] #### [facility] CLIA [id number] [address] [place] [address] [place] Gamma globulin Elph [Mass/Vol] 0.89 g/dL Normal 0.53- 1.51 [facility] Comment on above: Order Comment: Speci men Type: BLOOD SPECIMEN Ordering Facility: [facility] Address: [address] [place] [address] Performed By: #### L [id number] #### [facility] CLIA [id number] [address] [place] [address] [place] INTERPRETATION COMMENT FOR PROTEIN ELECTROPHORESIS See separate immunofixation report for characterization of monoclonal gammopathy. Normal [facility] Comment on above: Order Comment: Speci men Type: BLOOD SPECIMEN Ordering Facility: [facility] Address: [address] Performed By: #### L [id number] #### [facility] CLIA [id number] [address] [place] M-PROTEIN LOCATION Gamma Fraction 1 Normal [facility] Comment on above: Order Comment: Speci men Type: BLOOD SPECIMEN Ordering Facility: [facility] Address: [address] [place], [place] [address] Performed By: #### L [id number] #### [facility] CLIA [id number] [address] [place] Protein Fractions [Interp] An M protein is identified on protein electrophoresis. Abnormal No definitive M protein is identified on protein electrophoresis. [facility] Comment on above: Order Comment: Speci men Type: BLOOD SPECIMEN Ordering Facility: [facility] Address: [address] [place] [address] Performed By: #### L [id number] #### [facility] CLIA [id number] [address] [place] [address] [place] Protein.monoclonal Elph [Mass/Vol] 0.31 g/dL High < =0.00 [facility] Comment on above: Order Comment: Speci men Type: BLOOD SPECIMEN Ordering Facility: [facility] Address: [address] [place], [place] [address] Performed By: #### L [id number] #### [facility] CLIA [id number] [address] [place] [address] [place] SPE STAFF REVIEW Reviewed by Annel Frye M.D., Ph.D Normal [facility] Comment on above: Order Comment: Speci men Type: BLOOD SPECIMEN Ordering Facility: [facility] Address: [address] [place], [place] [address] Performed By: #### L [id number] #### [facility] CLIA [id number] [facility] [place] [address] [place] Phosphate SerPl-mCncon 04-09 Phosphate [Mass/Vol] 4.7 mg/dL Normal 2.7-4.8 [facility] Comment on above: Order Comment: Speci men Type: BLOOD SPECIMEN Ordering Facility: [facility] Address: [address] [place] [address] Performed By: #### 2 885-2, 2283-8, 2131-12 #### [facility] CLIA [id number] [address] [place] [address] [place] Prot SerPl-mCncon 04-09-2022 Protein [Mass/Vol] 6.9 g/dL Normal 6.3-8.0 [facility] Comment on above: Order Comment: Speci men Type: BLOOD SPECIMEN Ordering Facility: [facility] Address: [address] [place] [address] Performed By: #### 2 885-2, 8, 2131-12 #### [facility] CLIA [id number] [address] [place] [address] [place] TSH SerPl-aCncon 04-09-2022 TSH Qn 1.920 m[IU]/L Normal 0.270-4.200 [facility] Comment on above: Order Comment: Speci men Type: BLOOD SPECIMEN Ordering Facility: [facility] Address: [address] [place] [address] Performed By: #### 1 952-1, 3016-3 #### [facility] CLIA [id number] [address] [place] [address] [place] Urate SerPl-mCncon Urate [Mass/Vol] 6.3 mg/dL Normal 4.0-8.1 [facility] Comment on above: Order Comment: Speci men Type: BLOOD SPECIMEN Ordering Facility: [facility] Address: [address] [place] [address] Performed By: #### 2 885-2, 2284-2131-12 #### [facility] CLIA [id number] [address] [place] [id number] [facility] [place] Vit B12 SerPl-ncon 023 Cobalamin (Vitamin B12) [Mass/Vol] 806 pg/mL Normal 232-1245 [facility] Comment on above: Order Comment: Speci men Type: BLOOD SPECIMEN Ordering Facility: [facility] Address: [address] [place] [address] Performed By: #### 2 885-2, 228-8, 2131-12 #### [facility] CLIA [id number] [address] [facility] CNOVSPon 04-24-2021 CNOVSP Visit (SP) Office (H EMASA) MORRIS BELLE ([id number]) 1950 M Date Time Provider Department 04/24/21 9:15 AM JEFFERSON DEWITT During your visit today, we recorded the following information about you: Temperature Pulse Respiration Blood pressure 97.8 degrees 65/minute 16/minute 152/77 Weight Height 91.9 kg 1.676 m Jefferson Dewitt MD 04/24/2021 9:44 AM Signed NAME: Morris Belle CLINIC NO.: [id number] DATE OF SERVICE: April 24, 2021 Some elements in this clinic note that are critical to medical decision making have been carefully reviewed and included from a prior clinic note dated: April 24, 2020 Referring Provider: Taras Wright Additional Clinicians involved in Morris Belle's care: CC: Transition of care ASSESSMENT: 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 No signs of hypercalcemia, renal failure, anemia, bony lesions. mprotein is low at 0.28 IgGkappa and normal K/L ratio. Very unlikely his neuropathy is paraprotein related. Previously IgM was normal. Will monitor without additional Neuropathy Advancing neuropathy, no obvious cause. Consider gluten sensitivity. PLAN: 1. Labs 1 week prior to return 2. RTC 1 year HPI: Updated Visit, April 24, 2021: Still very active riding his bike and al his labs are stable including M-Christos. Neuropathy is unchanged overall perhaps a little worse. Affects him worse at night - feels swollen even though it's not. Updated Visit, April 24, 2020: Morris is a 70 year old male who was found to have a MGUS during workup for peripheral neuropathy. He has been followed for several years and his lab results have all been stable except WBC which is elevated. However, his adult son was sick and he may have picked up a upper respiratory infection which he is still suffering through Neuropathy perhaps a little worse - will consider taking gluten out of his diet. We explored the possibility of sleep apnea but he has very few symptoms except for mild daytime somnolence. His neuropathy is consistent with numbness in his feet becca bilateral stocking distribution and he has occasional paresthesias running down his right leg. 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 REVIEW OF SYSTEMS Per HPI and otherwise negative by full review of organ systems. ECOG PERFORMANCE STATUS: 0 PHYSICAL EXAMINATION: Vitals: BP 152/77 Pulse 65 Temp (Src) 97.8 (Temporal) Resp 16 Ht 5' 5.984 (1.68m) Wt 202 lb 9.6 oz (91.9kg) SpO2 96% BMI 32.72 kg/(m2). Body surface area is 2.07 meters squared. Exam limited to gross visualization where appropriate due to COVID-19. Gen.: This is an age-appropriate patient in no acute distress. Head: Appears atraumatic with no visible lesions. Eyes: Pupils equally round and reactive to light, extraocular muscles are intact. Neck: Supple. Mouth: Masked. Respiratory: Appears to be respiring comfortably. Neurologic: Nonfocal to gross visualization. Alert and oriented ?3. Psychiatric: No evidence of inappropriate anxiety or depression. Skin: Visible areas of skin without rash, lesions, wounds or petechiae. ALLERGIES: ALLERGIES No Known Allergies MEDICATIONS: gabapentin (NEURONTIN) 300 mg capsule Take 300 mg by mouth twice daily. LABORATORY VALUES: Hemoglobin (g/dL) Date Value 04/17/2021 14.7 Hematocrit (%) Date Value 04/17/2021 47.7 WBC (k/uL) Date Value 04/17/2021 8.69 DIAGNOSIS: (D47.2) MGUS (monoclonal gammopathy of unknown significance) (primary encounter diagnosis) Plan: B2 MICROGLOBULIN B, CBC + DIFF, COMP METABOLIC PANEL, LD LACTATE DEHYDRO, PHOSPHORUS INORGANIC, PROTEIN ELECTROPHORESIS SERUM W/INTERP, MONOCLONAL PROTEIN, SERUM (BLOOD), URIC ACID BLOOD, CALCIUM IONIZED B, KAPPA/SERRATO,FREE,SER, VITAMIN B12 BLOOD, FOLATE SERUM, TSH BLD (G90.09) Idiopathic peripheral autonomic neuropathy Plan: PROTEIN ELECTROPHORESIS SERUM W/INTERP, MONOCLONAL PROTEIN, SERUM (BLOOD), VITAMIN B12 BLOOD (E03.9) Hypothyroidism, unspecified type Plan: TSH BLD No past medical history on file. No past surgical history on file. Social History Tobacco Use - Smoking status: Never Smoker - Smokeless tobacco: Never Used Substance Use Topics - Alcohol use: No - Drug use: Not on file No family history on file. Jefferson Dewitt MD, CPE [place], [place] CC: Taras Wright MD ([facility]) [address] [facility] [address] Referring Provider: SELF [200] Allergies As of Date: 04/24/2021 (No Known Allergies) Date Reviewed: 04/24/2021 Reviewed by: Ester Beck - Fully Assessed Reason for Visit: MGUS [Other] Cmt: 1 year follow up Primary Visit Diagnosis:MGUS (monoclonal gammopathy of unknown significance) [D47.2] Other Visit Diagnoses:Idiopathic peripher (more content not included)... Normal [facility] B2 Microglobulinon B2 Microglobulin 1.8 mg/L Normal <3.1 [facility] Comment on above: Performed By: #### 2 885-2, 2284-8, 2132-9 #### [facility] CLIA [id number] [address] [place] [address] [place] Basic Metabolic Panlon 01-14 -2022 Anion gap [Moles/Vol] 15 mmol/L Normal 9-18 [facility] Comment on above: Performed By: #### 5 7021-8 #### [facility] CLIA [id number] [address] [place] [address] Calcium [Mass/Vol] 9.1 mg/dL Normal 8.5-10.2 [facility] Comment on above: Performed By: #### 5 7021-8 #### [facility] CLIA [id number] [address] [place] [address] Chloride [Moles/Vol] 100 mmol/L Normal 97-105 [facility] Comment on above: Performed By: #### 5 7021-8 #### [facility] CLIA [id number] [address] [place] [address] CO2 [Moles/Vol] 26 mmol/L Normal 22-30 [facility] Comment on above: Performed By: #### 5 7021-8 #### [facility] CLIA [id number] [address] [place] [address] Creatinine [Mass/Vol] 1.11 mg/dL Normal 0.73-1.22 [facility] Comment on above: Performed By: #### 5 7021-8 #### [facility] CLIA [id number] [address] [place] [address] eGFR- Amer. >60 Normal [facility] Comment on above: Performed By: #### 5 7021-8 #### [facility] CLIA [id number] [address] [place] [address] eGFR-All Other Races >60 Normal [facility] Comment on above: Result Comment: eGFR (Estimated GFR) Units of measure: mL/min/1.73 meters squared eGFR is derived from the reexpressed MDRD Study equation using the following parameters: serum creatinine, age, gender and race. The creatinine assay has been calibrated to be traceable to IDMS. An eGFR <60 mL/min/1.73m2 for >3 months is consistent with chronic kidney disease. Refer to KDOQI guidelines for clinical interpretation. In patients with unstable renal function, e.g. those with acute kidney injury, the eGFR may not accurately reflect actual GFR. Note: On 05/30/2021, the eGFR calculation will be updated to the NKF-ASN Task Force recommended 2020 CKD-EPI creatinine equation which does not include a race variable. For more information or to access a 2020 CKD-EPI calculator, visit the National Kidney Foundation website at kidney.org/professionals/kdoqi/gfr_calculator. Performed By: #### 5 7021-8 #### [facility] CLIA [id number] [address] [place] [address] Glucose [Mass/Vol] 86 mg/dL Normal 74-99 [facility] Comment on above: Result Comment: The [place] Diabetes [employer] (ADA) provides guidance for cutoff values for fasting glucose and random glucose. The ADA defines fasting as no caloric intake for at least 8 hours. Fasting plasma glucose results between 100 to 125 mg/dL indicate increased risk for diabetes (prediabetes). Fasting plasma glucose results greater than or equal to 126 mg/dL meet the criteria for diagnosis of diabetes. In the absence of unequivocal hyperglycemia, results should be confirmed by repeat testing. In a patient with classic symptoms of hyperglycemia or hyperglycemic crisis, random plasma glucose results greater than or equal to 200 mg/dL meet the criteria for diagnosis of diabetes. Reference: Standards of Medical Care in Diabetes 2016, [place] [employer] Association. Diabetes Care. 2016.39(Suppl 1). Performed By: #### 5 7021-8 #### [facility] CLIA [id number] [address] [place] [address] Potassium [Moles/Vol] 4.5 mmol/L Normal 3.7-5.1 [facility] Comment on above: Performed By: #### 5 7021-8 #### [facility] CLIA [id number] [address] [place] [address] Sodium [Moles/Vol] 141 mmol/L Normal 136-144 [facility] [facility] Comment on above: Performed By: #### 5 7021-8 #### [facility] CLIA [id number] [address] [place] [address] Urea nitrogen [Mass/Vol] 20 mg/dL Normal 9-24 [facility] Comment on above: Performed By: #### 5 7021-8 #### [facility] CLIA [id number] [address] [place] [address] CBC and Differentialon 04-17 Abs Baso 0.09 k/uL Normal <0.11 [facility] Comment on above: Performed By: #### 5 7021-8 #### [facility] CLIA [id number] [address] [place] [address] 34776 Abs [place] 0.88 k/uL High <0.87 [facility] Comment on above: Performed By: #### 5 7021-8 #### [facility] CLIA [id number] [address] [place] [address] 49718 Abs Neut 4.53 k/uL Normal 1.45-7.50 [facility] Comment on above: Performed By: #### 5 7021-8 #### [facility] CLIA [id number] [address] [place] [address] 92341 Absolute nRBC <0.01 Normal <0.01 [facility] Comment on above: Performed By: #### 5 7021-8 #### [facility] CLIA [id number] [address] [place] [address] 49520 Basophils/100 WBC (Bld) 1.0 % Normal C [facility] Comment on above: Performed By: #### 5 7021-8 #### [facility] CLIA [id number] [address] [place] [address] 93651 DTYPE Auto Diff Normal [facility] Comment on above: Performed By: #### 5 7021-8 #### [facility] CLIA [id number] [address] [place] [address] 25319 Eosinophils (Bld) [#/Vol] 0.32 10*3/uL Normal <0.46 [facility] Comment on above: Performed By: #### 5 7021-8 #### [facility] IA [id number] [address] [place] [address] 39111 Eosinophils/100 WBC (Bld) 3.7 % Normal [facility] Comment on above: Performed By: #### 5 7021-8 #### [facility] IA [id number] [address] [place] [address] 92246 Erythrocyte distribution wid th (RBC) [Ratio] 13.1 % Normal 11.5-15.0 [facility] Comment on above: Performed By: #### 5 7021-8 #### [facility] IA [id number] [address] [place] [address] 58705 Hematocrit (Bld) [Volume fraction] 47.7 % Normal 3 9.0-51.0 [facility] Comment on above: Performed By: #### 5 7021-8 #### [facility] [place] [id number] [address] [place] [address] 96875 Hemoglobin (Bld) [Mass/Vol] 14.7 g/dL Normal 13.0-17. 0 [facility] Comment on above: Performed By: #### 5 7021-8 #### [facility] IA [id number] [address] [place] [address] 86816 Lymphocytes (Bld) [#/Vol] 2.87 10*3/uL Normal 1.00-4.0 0 [facility] Comment on above: Performed By: #### 5 7021-8 #### [facility] IA [id number] [address] [place] [address] 05456 Lymphocytes/100 WBC (Bld) 33.0 % Normal [facility] Comment on above: Performed By: #### 5 7021-8 #### [facility] CLIA [id number] [address] [place] [address] 82475 MCH 30.4 pG Normal 26.0-34.0 [facility] Comment on above: Performed By: #### 5 7021-8 #### [facility] CLIA [id number] [address] [place] [address] 92998 MCHC (RBC) [Mass/Vol] 30.8 g/dL Normal 30.5-36.0 [facility] Comment on above: Performed By: #### 5 7021-8 #### [facility] CLIA [id number] [address] [place] [address] 92836 MCV (RBC) [Entitic vol] 98.6 fL Normal 80.0-100.[address] [facility] Comment on above: Performed By: #### 5 7021-8 #### [facility] CLIA [id number] [address] [place] [address] 22527 Monocytes/100 WBC (Bld) 10.1 % Normal [facility] Comment on above: Performed By: #### 5 7021-8 #### [facility] CLIA [id number] [address] [place] [address] 50024 Neutrophils/100 WBC (Bld) 52.2 % Normal [facility] Comment on above: Performed By: #### 5 7021-8 #### [facility] CLIA [id number] [address] [place] [address] 81440 NRBCs 0.0 /100 WBC Normal 0 [facility] Comment on above: Performed By: #### 5 7021-8 #### [facility] CLIA [id number] [address] [place] [address] 47418 Platelet mean volume (Bld) [Entitic vol] 11.7 fL Normal 9.0-12.7 [facility] Comment on above: Performed By: #### 5 7021-8 #### [facility] CLIA [id number] [address] [place] [address] Platelets (Bld) [#/Vol] 189 10*3/uL Normal 150-400 [facility] Comment on above: Performed By: #### 5 7021-8 #### [facility] CLIA [id number] [address] [place] [address] RBC (Bld) [#/Vol] 4.84 10*6/uL Normal 4.20-6.00 [facility] Comment on above: Performed By: #### 5 7021-8 #### [facility] CLIA [id number] [address] [place] [address] WBC (Bld) [#/Vol] 8.69 10*3/uL Normal 3.70-11.00 [facility] Comment on above: Performed By: #### 5 7021-8 #### [facility] CLIA [id number] [address] [place] [address] 28395 Abs Baso 0.07 k/uL Normal <0.11 [facility] Comment on above: Performed By: #### 2 885-2, 2283-11, 2131-12 #### [facility] CLIA [id number] [address] [address] [place] Abs [place] 0.85 k/uL Normal <0.87 [facility] Comment on above: Performed By: #### 2 885-2, 2283-11, 2131-12 #### [facility] CLIA [id number] [address] [address] [place] Abs Neut 4.74 k/uL Normal 1.45-7.50 [facility] Comment on above: Performed By: #### 2 885-2, 2283-11, 2131-12 #### [facility] CLIA [id number] [address] [address] [place] Absolute nRBC <0.01 Normal <0.01 [facility] Comment on above: Performed By: #### 2 885-2, 2283-11, 2131-12 #### [facility] CLIA [id number] [address] [address] [place] Basophils/100 WBC (Bld) 0.8 % Normal [facility] Comment on above: Performed By: #### 2 885-2, 2283-11, 2131-12 #### [facility] CLIA [id number] [address] [place] [id number] [place] DTYPE Auto Diff Normal [facility] Comment on above: Performed By: #### 2 885-2, 2283-11, 2131-12 #### [facility] CLIA [id number] [address] [place] [id number] [place] Eosinophils (Bld) [#/Vol] 0.33 10*3/uL Normal <0.46 [facility] Comment on above: Performed By: #### 2 885-2, 2283-11, 2131-12 #### [facility] CLIA [id number] [address] [address] [place] Eosinophils/100 WBC (Bld) 3.6 % Normal [facility] Comment on above: Performed By: #### 2 885-2, 2283-11, 2131-12 #### [facility] CLIA [id number] [address] [place] [id number] [place] Erythrocyte distribution wid th (RBC) [Ratio] 12.5 % Normal 11.5-15.0 [facility] Comment on above: Performed By: #### 2 885-2, 2283-11, 2131-12 #### [facility] CLIA [id number] [address] [address] [place] Hematocrit (Bld) [Volume fraction] 43.9 % Normal 3 9.0-51.0 [facility] Comment on above: Performed By: #### 2 885-2, 2283-11, 2131-12 #### [facility] CLIA [id number] [address] [place] [id number] [place] Hemoglobin (Bld) [Mass/Vol] 14.2 g/dL Normal 13.0-17. 0 [facility] Comment on above: Performed By: #### 2 885-2, 2283-11, 2131-12 #### [facility] CLIA [id number] [address] [place] [address] [place] Lymphocytes (Bld) [#/Vol] 3.10 10*3/uL Normal 1.00-4.0 0 [facility] Comment on above: Performed By: #### 2 885-2, 2283-11, 2131-12 #### [facility] CLIA [id number] [address] [place] [id number] [place] Lymphocytes/100 WBC (Bld) 34.1 % Normal [facility] Comment on above: Performed By: #### 2 885-2, 2283-11, 2131-12 #### [facility] CLIA [id number] [address] [place] [address] [place] MCH 30.1 pG Normal 26.0-34.0 [facility] Comment on above: Performed By: #### 2 885-2, 2283-11, 2131-12 #### [facility] CLIA [id number] [address] [place] [id number] [place] MCHC (RBC) [Mass/Vol] 32.3 g/dL Normal 30.5-36.0 [facility] Comment on above: Performed By: #### 2 885-2, 2283-11, 2131-12 #### [facility] CLIA [id number] [address] [place] [address] [place] MCV (RBC) [Entitic vol] 93.0 fL Normal 80.0-100.0 C [facility] Comment on above: Performed By: #### 2 885-2, 2283-11, 2131-12 #### [facility] CLIA [id number] [address] [place] [address] [place] Monocytes/100 WBC (Bld) 9.4 % Normal C [facility] Comment on above: Performed By: #### 2 885-2, 2283-11, 2131-12 #### [facility] CLIA [id number] [address] [place] [address] [place] Neutrophils/100 WBC (Bld) 52.1 % Normal [facility] Comment on above: Performed By: #### 2 885-2, 2283-11, 2131-12 #### [facility] CLIA [id number] [address] [place] [id number] [place] NRBCs 0.0 /100 WBC Normal 0 [facility] Comment on above: Performed By: #### 2 885-2, 2283-11, 2131-12 #### [facility] CLIA [id number] [address] [address] [place] Platelet mean volume (Bld) [Entitic vol] 10.4 fL Normal 9.0-12.7 [facility] Comment on above: Performed By: #### 2 885-2, 2283-11, 2131-12 #### [facility] CLIA [id number] [address] [place] [id number] [place] Platelets (Bld) [#/Vol] 178 10*3/uL Normal 150-400 [facility] Comment on above: Performed By: #### 2 885-2, 8, 2131-12 #### [facility] CLIA [id number] [address] [address] [place] RBC (Bld) [#/Vol] 4.72 10*6/uL Normal 4.20-6.00 [facility] Comment on above: Performed By: #### 2 885-2, 2283-11, 2131-12 #### [facility] CLIA [id number] [address] [place] [address] [place] WBC (Bld) [#/Vol] 9.09 10*3/uL Normal 3.70-11.00 [facility] Comment on above: Performed By: #### 2 885-2, 2283-11, 2131-12 #### [facility] CLIA [id number] [address] [place] [phone] [place] Calcium, Ionizedon Calcium [Moles/Vol] 1.16 mmol/L Normal 1.08-1.30 [facility] Comment on above: Performed By: #### 2 885-2, 2283-11, 2131-12 #### [facility] CLIA [id number] [address] [place] [phone] [place] Calcium, Ionized 1.19 mmol/L Normal 1.08-1.30 [facility] Comment on above: Performed By: #### 2 885-2, 2283-11, 2131-12 #### [facility] CLIA [id number] [address] [place] [phone] [place] Comp Metabolic Panelon 04-17 Albumin [Mass/Vol] 4.8 g/dL Normal 3.9-4.9 [facility] Comment on above: Performed By: #### 2 885-2, 2283-11, 2131-12 #### [facility] CLIA [id number] [address] [address] [place] ALP [Catalytic activity/Vol] 44 U/L Normal 38-113 [facility] Comment on above: Performed By: #### 2 885-2, 2283-11, 2131-12 #### [facility] CLIA [id number] [address] [address] [place] ALT [Catalytic activity/Vol] 33 U/L Normal 10-54 [facility] Comment on above: Performed By: #### 2 885-2, 2283-11, 2131-12 #### [facility] CLIA [id number] [address] [place] [id number] [place] Anion gap [Moles/Vol] 11 mmol/L Normal 9-18 [facility] Comment on above: Performed By: #### 2 885-2, 2283-11, 2131-12 #### [facility] CLIA [id number] [address] [place] [phone] [place] AST [Catalytic activity/Vol] 40 U/L Normal 14-40 [facility] Comment on above: Performed By: #### 2 885-2, 2283-11, 2131-12 #### [facility] CLIA [id number] [address] [place] [phone] [place] Bilirubin [Mass/Vol] 0.6 mg/dL Normal 0.2-1.3 [facility] Comment on above: Performed By: #### 2 885-2, 2283-11, 2131-12 #### [facility] CLIA [id number] [address] [place] [phone] [place] Calcium [Mass/Vol] 8.8 mg/dL Normal 8.5-10.2 [facility] Comment on above: Performed By: #### 2 885-2, 2283-11, 2131-12 #### [facility] CLIA [id number] [address] [address] [place] Chloride [Moles/Vol] 101 mmol/L Normal 97-105 [facility] Comment on above: Performed By: #### 2 885-2, 2283-11, 2131-12 #### [facility] CLIA [id number] [address] [address] [place] CO2 [Moles/Vol] 30 mmol/L Normal 22-30 [facility] Comment on above: Performed By: #### 2 885-2, 2283-11, 2131-12 #### [facility] CLIA [id number] [address] [place] [phone] [place] Creatinine [Mass/Vol] 1.07 mg/dL Normal 0.73-1.22 [facility] Comment on above: Performed By: #### 2 885-2, 2283-11, 2131-12 #### [facility] CLIA [id number] [address] [address] [place] eGFR- Amer. >60 Normal [facility] Comment on above: Performed By: #### 2 885-2, 2283-11, 2131-12 #### [facility] CLIA [id number] [address] [address] [place] eGFR-All Other Races >60 Normal [facility] Comment on above: Result Comment: eGFR (Estimated GFR) Units of measure: mL/min/1.73 meters squared eGFR is derived from the reexpressed MDRD Study equation using the following parameters: serum creatinine, age, gender and race. The creatinine assay has been calibrated to be traceable to IDMS. An eGFR <60 mL/min/1.73m2 for >3 months is consistent with chronic kidney disease. Refer to KDOQI guidelines for clinical interpretation. In patients with unstable renal function, e.g. those with acute kidney injury, the eGFR may not accurately reflect actual GFR. Note: On 05/30/2021, the eGFR calculation will be updated to the NKF-ASN Task Force recommended 2020 CKD-EPI creatinine equation which does not include a race variable. For more information or to access a 2020 CKD-EPI calculator, visit the National Kidney Foundation website at kidney.org/professionals/kdoqi/gfr_calculator. Performed By: #### 2 885-2, 2283-11, 2131-12 #### [facility] CLIA [id number] [address] [place] [address] [place] Glucose [Mass/Vol] 107 mg/dL High 74-99 [facility] Comment on above: Result Comment: The [place] Diabetes Association (ADA) provides guidance for cutoff values for fasting glucose and random glucose. The ADA defines fasting as no caloric intake for at least 8 hours. Fasting plasma glucose results between 100 to 125 mg/dL indicate increased risk for diabetes (prediabetes). Fasting plasma glucose results greater than or equal to 126 mg/dL meet the criteria for diagnosis of diabetes. In the absence of unequivocal hyperglycemia, results should be confirmed by repeat testing. In a patient with classic symptoms of hyperglycemia or hyperglycemic crisis, random plasma glucose results greater than or equal to 200 mg/dL meet the criteria for diagnosis of diabetes. Reference: Standards of Medical Care in Diabetes 2016, [place] Diabetes Association. Diabetes Care. 2016.39(Suppl 1). Performed By: #### 2 885-2, 8, 2131-12 #### [facility] CLIA [id number] [address] [address] [place] Potassium [Moles/Vol] 4.2 mmol/L Normal 3.7-5.1 [facility] Comment on above: Performed By: #### 2 885-2, 8, 2131-12 #### [facility] CLIA [id number] [address] [address] [place] Protein [Mass/Vol] 7.3 g/dL Normal 6.3-8.0 [facility] Comment on above: Performed By: #### 2 885-2, 8, 2131-12 #### [facility] CLIA [id number] [address] [address] [place] Sodium [Moles/Vol] 142 mmol/L Normal 136-144 [facility] Comment on above: Performed By: #### 2 885-2, 2283-11, 2131-12 #### [facility] CLIA [id number] [address] [address] [place] Urea nitrogen [Mass/Vol] 22 mg/dL Normal 9-24 [facility] Comment on above: Performed By: #### 2 885-2, 2283-11, 2131-12 #### [facility] CLIA [id number] [address] [address] [place] Hemoglobin A1con 04-17-2021 Glucose [Mass/Vol] 137 mg/dL Normal [facility] Comment on above: Result Comment: eAG: (Estimated average glucose) is a calculated value from HgbA1c and is public health representative of the average blood glucose level in the last 2-3 month period. Performed By: #### 5 7021-8 #### [facility] CLIA [id number] [address] [place] [address] HbA1c (Bld) [Mass fraction] 6.4 % High 4.3-5.6 [facility] Comment on above: Result Comment: Amer [place] Diabetes Association guidelines indicate that patients with HgbA1c in the range 5.7-6.4% are at increased risk for development of diabetes, and intervention by lifestyle modification may be beneficial. HgbA1c greater or equal to 6.5% is considered diagnostic of diabetes. Performed By: #### 5 7021-8 #### [facility] CLIA [id number] [address] [place] [address] Hepatic Functn Panelon 04-17 Albumin [Mass/Vol] 4.7 g/dL Normal 3.9-4.9 [facility] Comment on above: Performed By: #### 5 7021-8 #### [facility] CLIA [id number] [address] [place] [address] ALP [Catalytic activity/Vol] 40 U/L Normal 38-113 [facility] Comment on above: Performed By: #### 5 7021-8 #### [facility] CLIA [id number] [address] [place] [address] ALT [Catalytic activity/Vol] 35 U/L Normal 10-54 [facility] Comment on above: Performed By: #### 5 7021-8 #### [facility] CLIA [id number] [address] [place] [address] [place] [address] AST [Catalytic activity/Vol] 44 U/L High 14-40 [facility] Comment on above: Performed By: #### 5 7021-8 #### [facility] CLIA [id number] [address] [place] [address] [place] [address] Bilirubin [Mass/Vol] 0.6 mg/dL Normal 0.2-1.3 [facility] Comment on above: Performed By: #### 5 7021-8 #### [facility] CLIA [id number] [address] [place] [address] [place] [address] Bilirubin,Conjugated <0.2 Normal <0.2 [facility] Comment on above: Performed By: #### 5 7021-8 #### [facility] CLIA [id number] [address] [place] [address] [place] [address] Protein [Mass/Vol] 7.5 g/dL Normal 6.3-8.0 [facility] Comment on above: Performed By: #### 5 7021-8 #### [facility] CLIA [id number] [address] [place] [address] LDon 04-17-2021 LD 322 U/L High 135-225 [facility] Comment on above: Result Comment: Hemo lysis present. The origin of the hemolysis, in vitro versus an in vivo hemolytic process, cannot be distinguished via this assay alone. In vitro hemolysis may lead to non-physiological (spurious) elevation in lactate dehydrogenase (LDH) results. The result should be interpreted in context of the clinical setting and other test results. Suggest reorder as clinically indicated. Performed By: #### 2 885-2, 2284-8, 2132-9 #### [facility] CLIA [id number] [address] [place] [address] [place] Lipid Panel, Basicon 022 Cholesterol [Mass/Vol] 207 mg/dL High <200 [facility] Comment on above: Result Comment: <200 mg/dL, Desirable 200-239 mg/dL, Borderline high >239 mg/dL, High Performed By: #### 5 7021-8 #### [facility] CLIA [id number] [address] [place] [address] Cholesterol in HDL [Mass/Vol] 65 mg/dL Normal >39 [facility] Comment on above: Result Comment: 40-5 9 mg/dL, Acceptable >59 mg/dL, High: Negative risk factor for coronary heart disease <40 mg/dL, Low: Positive risk factor for coronary heart disease Performed By: #### 5 7021-8 #### [facility] CLIA [id number] [address] [place] [address] Cholesterol in LDL [Mass/Vol] 122 mg/dL High <100 [facility] Comment on above: Result Comment: <100 mg/dL, Optimal 100-129 mg/dL, Near optimal/above optimal 130-159 mg/dL, Borderline high 160-189 mg/dL, High >189 mg/dL, Very high Secondary prevention optimal LDL Cholesterol levels are recommended to be < 70 mg/dL Performed By: #### 5 7021-8 #### [facility] CLIA [id number] [address] [place] [address] Fasting Time Unknown Normal [facility] Comment on above: Performed By: #### 5 7021-8 #### [facility] CLIA [id number] [address] [place] [address] LDL:HDL Ratio 1.88 Normal <2.54 [facility] Comment on above: Result Comment: Refe rence: 1. National Cholesterol Education Program ATP III Guideline At-A-Glance Quick Desk Reference: National Heart, Lung, and Blood [place]. National Institutes of Health. 2001: NIH Publication No. 01-3305. 2. An International Atherosclerosis Society position paper: global recommendations for the management of dyslipidemia: executive summary, Atherosclerosis. 2014: 232(2):410-413. Performed By: #### 5 7021-8 #### [facility] CLIA [id number] [address] [place] [address] Non HDL Cholesterol 142 mg/dL High <130 [facility] Comment on above: Result Comment: <130 mg/dL, Optimal 130-159 mg/dL, Near optimal/above optimal 160-189 mg/dL, Borderline high 190-219 mg/dL, High >219 mg/dL, Very high Secondary prevention optimal non HDL Cholesterol levels are recommended to be < 100 mg/dL Performed By: #### 5 7021-8 #### [facility] CLIA [id number] [address] [place] [address] TC:HDL Ratio 3.18 Normal <5.10 [facility] Comment on above: Performed By: #### 5 7021-8 #### [facility] CLIA [id number] [address] [place] [address] Triglyceride [Mass/Vol] 102 mg/dL Normal <[address] [facility] Comment on above: Result Comment: <150 mg/dL, Normal 150-199 mg/dL, Borderline high 200-499 mg/dL, High >499 mg/dL, Very high Performed By: #### 5 7021-8 #### [facility] CLIA [id number] [address] [place] [address] VLDL Cholesterol 20 mg/dL Normal <30 [facility] Comment on above: Performed By: #### 5 7021-8 #### [facility] CLIA [id number] [address] [place] [address] Monclnl Protein, Seron 04-17 K/L Ratio, Serum 1.28 Normal 0.26-1.65 [facility] Comment on above: Performed By: #### 2 885-2, 2283-11, 2131-12 #### [facility] CLIA [id number] [facility] [address] [address] [place], Free, Serum 15.7 mg/L Normal 3.30-19.40 [facility] Comment on above: Result Comment: Test performed by an immunoturbidimetric assay on Optilite instrument from [facility] [facility] Immunoglobulin free light chain assay results should be interpreted in conjunction with other tests and in correlation with clinical picture. Performed By: #### 2 885-2, 2283-11, 2131-12 #### [facility] CLIA [id number] [address] [id number] [place] Lambda, Free, Serum 12.3 mg/L Normal 5.7-26.3 [facility] Comment on above: Result Comment: Test performed by an immunoturbidimetric assay on Optilite instrument from [facility]. Immunoglobulin free light chain assay results should be interpreted in conjunction with other tests and in correlation with clinical picture. Performed By: #### 2 885-2, 2283-11, 2131-12 #### [facility] CLIA [id number] [address] [address] [place] MPA Interpretation SEE COMMENT Normal [facility] Comment on above: Result Comment: Atyp ical restricted bands are present in the IgG and kappa regions. Consistent with IgG kappa monoclonal gammopathy. Performed By: #### 2 885-2, 2283-11, 2131-12 #### [facility] CLIA [id number] [address] [address] [facility] MPA Result M protein is present. Critically abnormal No M protein is identified. [facility] Comment on above: Performed By: #### 2 885-2, 2283-11, 2131-12 #### [facility] CLIA [id number] [address] [address] [place] MPA Serum IgA 302 mg/dL Normal 70-400 [facility] Comment on above: Performed By: #### 2 885-2, 2283-11, 2131-12 #### [facility] CLIA [id number] [address] [address] [facility] [place] MPA Serum IgG 1021 mg/dL Normal 700-1600 [facility] Comment on above: Performed By: #### 2 885-2, 2283-11, 2131-12 #### [facility] CLIA [id number] [address] [address] [place] MPA Serum IgM 42 mg/dL Normal 40-230 [facility] Comment on above: Performed By: #### 2 885-2, 2283-11, 2131-12 #### [facility] CLIA [id number] [address] [address] [facility] [place] Staff Review Reviewed by Lore Chu MD ([id number]) Normal [facility] Comment on above: Performed By: #### 2 885-2, 2283-11, 2131-12 #### [facility] CLIA [id number] [address] [address] [place] Phosphoruson 04-17-2021 Phosphate [Mass/Vol] 5.6 mg/dL High 2.7-4.8 [facility] Comment on above: Performed By: #### 2 885-2, 2283-11, 2131-12 #### [facility] CLIA [id number] [address] [address] [place] Protein Electrophor.on 04-17 Albumin [Mass/Vol] 3.95 g/dL Normal 3.37-4.23 [facility] Comment on above: Performed By: #### 2 885-2, 2283-11, 2131-12 #### [facility] CLIA [id number] [address] [address] [place] Alpha 1 Globulin 0.21 gm/dL Normal 0.18-0.31 [facility] Comment on above: Performed By: #### 2 885-2, 2283-11, 2131-12 #### [facility] CLIA [id number] [address] [address] [place] Alpha 2 Globulin 0.95 gm/dL Normal 0.52-0.97 [facility] Comment on above: Performed By: #### 2 885-2, 2283-11, 2131-12 #### [facility] CLIA [id number] [address] [address] [place] Beta Globulin 1.12 gm/dL Normal 0.84-1.36 [facility] Comment on above: Performed By: #### 2 885-2, 2283-11, 2131-12 #### [facility] CLIA [id number] [address] [address] [place] Gamma Globulin 1.07 gm/dL Normal 0.70-1.44 [facility] Comment on above: Performed By: #### 2 885-2, 2283-11, 2131-12 #### [facility] CLIA [id number] [address] [address] [place] Interpretation SEE COMMENT Normal [facility] Comment on above: Result Comment: An M protein is identified on protein electrophoresis. See separate immunofixation report for characterization of the M protein. Performed By: #### 2 885-2, 2283-11, 2131-12 #### [facility] CLIA [id number] [address] [address] [place] M Protein Location Gamma fraction Normal [facility] Comment on above: Performed By: #### 2 885-2, 2283-11, 2131-12 #### [facility] CLIA [id number] [address] [id number] [place] M Christos Concentratn 0.28 gm/dL High 0.00 [facility] Comment on above: Performed By: #### 2 885-2, 2283-11, 2131-12 #### [facility] CLIA [id number] [facility] [address] [place] [id number] [place] SPE Staff Review Reviewed by Ekta hdz MD ([id number]) [facility] Comment on above: Performed By: #### 2 885-2, 2283-11, 2131-12 #### [facility] CLIA [id number] [address] [address] [place] Uric Acidon 04-17-2021 Urate [Mass/Vol] 6.0 mg/dL Normal 4.0-8.1 [facility] Comment on above: Performed By: #### 2 885-2, 2283-11, 2131-12 #### [facility] CLIA [id number] [address] [id number] [place] Vital Signs Date Time Vital Sign Value Performing Clinician Teresa lity 04-16-2022 09:44-0500 Body height 167.6 cm Jefferson Dewitt MD Work Phone: [facility] 04-16-2022 09:44-0500 Body temperature 97.2 [degF] Jefferson Dewitt MD Work Phone: [facility] 04-16-2022 09:44-0500 Body weight 94.17 kg Jefferson Dewitt MD Work Phone: [facility] 04-16-2022 09:44-0500 Diastolic blood pressure 65 mm[Hg] Jefferson Dewitt MD Work Phone: [facility] 04-16-2022 09:44-0500 Heart rate 50 /min Jefferson Dewitt MD Work Phone: [facility] 04-16-2022 09:44-0500 Respiratory rate 16 /min Jefferson Dewitt MD Work Phone: [facility] 04-16-2022 09:44-0500 SaO2% (BldA) [Mass fraction] 94 % Jefferson Dewitt MD Work Phone: [facility] 04-16-2022 09:44-0500 Systolic blood pressure 133 mm[Hg] Jefferson Dewitt MD Work Phone: [facility] Encounters Encounter Date Encounter Type Care Provider Facility Start: 08-18-2022 ambulatory TAMMY Moore lity:H1 Start: 04-16-2022 End: 04-16-2022 ambulatory Jefferson Dewitt MD Work Phone: Hematology/Oncology Comment on above: 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 Dx); Idiopathic peripheral autonomic neuropathy Start: 04-16-2022 End: 04-16-2022 Patient encounter procedure Jefferson Dewitt MD Work Phone: [facility] Start: 04-09-2022 End: 04-09-2022 ambulatory JEFFERSON DEWITT Facility:[facility] Start: 04-24-2021 End: 04-24-2021 ambulatory TARAS WRIGHT Facility:[facility] Start: 04-17-2021 End: 04-17-2021 ambulatory TARAS WRIGHT Facility:[facility] Start: 07-19-2014 End: 07-20-2014 Ambulatory FAVIOLA NOLAN Facility:[facility] Procedures Date Procedure Procedure Detail Performing Clinician Start: 04-17-2021 PSA screening TARAS SAEED Comment on above: Result Comment: [place] PSA test methodology used is the electrochemiluminescence immunoassay by [employer]. Total PSA values by differing methodologies cannot be interchanged. Performed By: #### 5 7021-8 #### [facility] CLIA [id number] [address] [place] [address] Plan of Treatment Date Care Activity Detail Author Start: 01-18-2027 LIPID SCREEN LIPID SCREEN [facility] Start: 04-09-2025 DIABETES SCREEN DIABETES SCREEN [facility] Start: 04-16-2023 End: 04-16-2023 Lxtz-8-Wtuiorlbfsfoy [Mass/volume] in Serum or Plasma B2 MICROGLOBULIN B Lab Routine MGUS (monoclonal gammopathy of unknown significance) Idiopathic peripheral autonomic neuropathy Expected: 04/16/2023 (Approximate), Expires: 04/16/2023 [facility] Work Phone: Comment on above: Expected: 04/16/2023 (Approximate), Expires: 04/16/2023 Start: 04-16-2023 End: 04-16-2023 Calcium.ionized [Moles/volume] in Blood CALCIUM IONIZED BLOOD Lab Routine MGUS (monoclonal gammopathy of unknown significance) Idiopathic peripheral autonomic neuropathy Expected: 04/16/2023 (Approximate), Expires: 04/16/2023 [facility] Work Phone: Comment on above: Expected: 04/16/2023 (Approximate), Expires: 04/16/2023 Start: 04-16-2023 End: 04-16-2023 CBC W Auto Differential panel - Blood CBC + DIFF Lab Routine MGUS (monoclonal gammopathy of unknown significance) Idiopathic peripheral autonomic neuropathy Expected: 04/16/2023 (Approximate), Expires: 04/16/2023 [facility] Work Phone: Comment on above: Expected: 04/16/2023 (Approximate), Expires: 04/16/2023 Start: 04-16-2023 End: 04-16-2023 Comprehensive metabolic 2000 panel - Serum or Plasma COMP METABOLIC PANEL Lab Routine MGUS (monoclonal gammopathy of unknown significance) Idiopathic peripheral autonomic neuropathy Expected: 04/16/2023 (Approximate), Expires: 04/16/2023 [facility] Work Phone: Comment on above: Expected: 04/16/2023 (Approximate), Expires: 04/16/2023 Start: 04-16-2023 End: 06-16-2023 KAPPA/SERRATO,FREE,SER KAPPA/SERRATO,FREE,SER Lab Routine MGUS (monoclonal gammopathy of unknown significance) Idiopathic peripheral autonomic neuropathy Expected: 04/16/2023 (Approximate), Expires: 06/16/2023 [facility] Work Phone: Comment on above: Expected: 04/16/2023 (Approximate), Expires: 06/16/2023 Start: 04-16-2023 End: 04-16-2023 Lactate dehydrogenase [Enzymatic activity/volume] in Serum or Plasma LD LACTATE DEHYDRO Lab Routine MGUS (monoclonal gammopathy of unknown significance) Idiopathic peripheral autonomic neuropathy Expected: 04/16/2023 (Approximate), Expires: 04/16/2023 [facility] Work Phone: Comment on above: Expected: 04/16/2023 (Approximate), Expires: 04/16/2023 Start: 04-16-2023 End: 04-16-2023 MONOCLONAL PROTEIN, SERUM (BLOOD) MONOCLONAL PROTEIN, SERUM (BLOOD) Lab Routine MGUS (monoclonal gammopathy of unknown significance) Idiopathic peripheral autonomic neuropathy Expected: 04/16/2023 (Approximate), Expires: 04/16/2023 [facility] Work Phone: Comment on above: Expected: 04/16/2023 (Approximate), Expires: 04/16/2023 Start: 04-16-2023 End: 04-16-2023 Phosphate [Mass/volume] in Serum or Plasma PHOSPHORUS INORGANIC Lab Routine MGUS (monoclonal gammopathy of unknown significance) Idiopathic peripheral autonomic neuropathy Expected: 04/16/2023 (Approximate), Expires: 04/16/2023 [facility] Work Phone: Comment on above: Expected: 04/16/2023 (Approximate), Expires: 04/16/2023 Start: 04-16-2023 End: 04-16-2023 PROTEIN ELECTROPHORESIS SERUM W/INTERP PROTEIN ELECTROPHORESIS SERUM W/INTERP Lab Routine MGUS (monoclonal gammopathy of unknown significance) Idiopathic peripheral autonomic neuropathy Expected: 04/16/2023 (Approximate), Expires: 04/16/2023 [facility] Work Phone: Comment on above: Expected: 04/16/2023 (Approximate), Expires: 04/16/2023 Start: 04-16-2023 End: 04-16-2023 Urate [Mass/volume] in Serum or Plasma URIC ACID BLOOD Lab Routine MGUS (monoclonal gammopathy of unknown significance) Idiopathic peripheral autonomic neuropathy Expected: 04/16/2023 (Approximate), Expires: 04/16/2023 [facility] Work Phone: Comment on above: Expected: 04/16/2023 (Approximate), Expires: 04/16/2023 Start: 04-04-2022 ADVANCE DIRECTIVE DISCUSSION ADVANCE DIRECTIVE DISCUSSION [facility] Start: 04-04-2022 DEPRESSION ASSESSMENT DEPRESSION ASS ESSMENT [facility] Start: 10-24-2021 Urine microalbumin profile DTAP,TDAP,TD (2 - Td or Tdap) [facility] Start: 02-08-2021 PNEUMOCOCCAL: 65+ (2 - PPSV23 if available, else PCV20) PNEUMOCOCCAL: 65+ (2 - PPSV23 if available, else PCV20) [facility] Start: 10-02-2015 SHINGRIX VACCINE (2 of 3) SHINGRIX V ACCINE (2 of 3) [facility] Start: 01-20-1997 COLOGUARD (FIT-DNA) COLOGUARD (FIT-D NA) [facility] Start: 01-20-1997 Colonoscopy COLONOSCOPY [facility] Start: 01-20-1997 COLORECTAL CANCER SCREENING COLORECTAL CANCER SCREENING [facility] Start: 01-20-[address] COLONOGRAPHY [facility] Start: 01-20-1997 FECAL OCCULT BLOOD FECAL OCCULT BLOO D [facility] Start: 01-20-1997 SIGMOIDOSCOPY SIGMOIDOSCOPY Salima higginbotham [facility] Start: 01-20-1970 HEPATITIS C SCREENING HEPATITIS C SC BRIANDA [facility] Clini c Immunizations Immunization Date Immunization Notes Care Provider Fa cility 02-09-2020 influenza, high-dose , quadrivalent vaccine (FLUZONE HIGH DOSE QUADRIVALENT) Jefferson Dewitt MD Work Phone: [facility] 02-09-2020 pneumococcal conjuga te vaccine, 13 valent Jefferson Dewitt MD Work Phone: [facility] 08-07-2015 zoster vaccine, live Jefferson sanchez MD Work Phone: [facility] 01-24-2015 influenza, injectabl e, quadrivalent, preservative free Jefferson Dewitt MD Work Phone: [facility] 01-25-2014 influenza, seasonal, injectable Jefferson Dewitt MD Work Phone: [facility] 01-03-2013 influenza, seasonal, injectable Jefferson Dewitt MD Work Phone: [facility] 10-25-2011 tetanus toxoid, redu kimmy diphtheria toxoid, and acellular pertussis vaccine, adsorbed Jefferson Dewitt MD Work Phone: [facility] 04-04-2011 influenza, seasonal, injectable Jefferson Dewitt MD Work Phone: [facility] 04-04-2010 influenza, seasonal, injectable Jefferson Dewitt MD Work Phone: [facility] Payers Date Payer Category Payer Medicare MEDICARE MEDICAR E A AND B [id number] 2017-Present [phone] [address] [address] [place] [address] Medicare [id number] 2017 Unknown [employer] [id number] 2017-Present [phone] [address] [place] [address] Indemnity [id number] 1959 Medicare [id number] 1957 Unknown [id number] 1952 Unknown [id number] Unknown [id number] Social History Date Type Detail Facility Start: 06-20-2017 Tobacco smoking stat [facility] Never smoked tobacco [facility] Start: 06-20-2017 Tobacco use and exposure Smoke less tobacco non-user [facility] Start: 04-16-2022 Alcohol intake 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 Author Type: Physician Type: Progress Notes Filed: 04/16/2022 10:30 AM Note Text: NAME: Morris Belle [facility] NO.: [id number] DATE OF SERVICE: April 16, 2022 (Bhupendra) Some elements in this clinic note that are critical to medical decision making have been carefully reviewed and included from a prior clinic note dated: April 24, 2021 (Bhupendra) Referring Provider: Taras Wright Additional Clinicians involved in Morris Belle's care: CC: Follow up visit ASSESSMENT: 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 No signs of hypercalcemia, renal failure, anemia, bony lesions. mprotein is low at 0.31 IgG kappa and K/L ratio is now slightly increased. Very unlikely his neuropathy is paraprotein related. Previously IgM was normal. Will monitor Neuropathy No change in neuropathy, no obvious cause. PLAN: 1. Labs 1 week prior to return 2. RTC 1 year HPI: Updated Visit, April 16, 2022: September 2021 was riding his bike and had chest pain. Found a coronary blockage but wasn't stentable. Currently finishing 8 more weeks of cardiac rehab (out of 36). Reviewed labs which remain stable. Occasionally gets an itch that responds to Neurontin. Updated Visit, April 24, 2021: Still very active riding his bike and al his labs are stable including M-Christos. Neuropathy is unchanged overall perhaps a little worse. Affects him worse at night - feels swollen even though it's not. Updated Visit, April 24, 2020: Morris is a 70 year old male who was found to have a MGUS during workup for peripheral neuropathy. He has been followed for several years and his lab results have all been stable except WBC which is elevated. However, his adult son was sick and he may have picked up a upper respiratory infection which he is still suffering through Neuropathy perhaps a little worse - will consider taking gluten out of his diet. We explored the possibility of sleep apnea but he has very few symptoms except for mild daytime somnolence. His neuropathy is consistent with numbness in his feet becca bilateral stocking distribution and he has occasional paresthesias running down his right leg. 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 REVIEW OF SYSTEMS Per HPI and otherwise negative by full review of organ systems. ECOG PERFORMANCE STATUS: 0 PHYSICAL EXAMINATION: Vitals: BP 133/65 Pulse 50 Temp (Src) 97.2 (Temporal) Resp 16 Ht 5' 5.984 (1.68m) Wt 207 lb 9.6 oz (94.2kg) SpO2 94% BMI 33.52 kg/(m2). Body surface area is 2.09 meters squared. Exam limited to gross visualization where appropriate due to COVID-19. Gen.: This is an age-appropriate patient in no acute distress. Head: Appears atraumatic with no visible lesions. Eyes: Pupils equally round and reactive to light, extraocular muscles are intact. Neck: Supple. Mouth: Masked. Respiratory: Appears to be respiring comfortably. Neurologic: Nonfocal to gross visualization. Alert and oriented ?3. Psychiatric: No evidence of inappropriate anxiety or depression. Skin: Visible areas of skin without rash, lesions, wounds or petechiae. ALLERGIES: ALLERGIES No Known Allergies MEDICATIONS: aspirin, enteric coated (ASPIRIN, ENTERIC COATED) 81 mg EC tablet Take 81 mg by mouth. atorvastatin (LIPITOR) 40 mg tablet isosorbide mononitrate ER (IMDUR) 30 mg 24 hr tablet metoprolol tartrate, short acting, (LOPRESSOR) 25 mg tablet TAKE 1 TABLET BY MOUTH EVERY MORNING AND 1 EVERY NIGHT AT BEDTIME naproxen (NAPROSYN) 250 mg tablet Take 250 mg by mouth. gabapentin (NEURONTIN) 300 mg capsule Take 300 mg by mouth twice daily. empagliflozin (JARDIANCE) 10 mg tablet Take 10 mg by mouth. furosemide (LASIX) 40 mg tablet Take by mouth. LABORATORY VALUES: WBC (k/uL) Date Value 04/09/2022 6.52 RBC (m/uL) Date Value 04/09/2022 4.52 Hemoglobin (g/dL) Date Value 04/09/2022 13.5 Hematocrit (%) Date Value 04/09/2022 40.4 MCV (fL) Date Value 04/09/2022 89.4 MCH (pg) Date Value 04/09/2022 29.9 MCHC (g/dL) Date Value 04/09/2022 33.4 RDW-CV (%) Date Value 04/09/2022 12.9 Platelet Count (k/uL) Date Value 04/09/2022 172 MPV (fL) Date Value 04/09/2022 10.9 Glucose (mg/dL) Date Value 04/09/2022 117 (H) BUN (mg/dL) Date Value 04/09/2022 22 Creatinine (mg/dL) Date Value 04/09/2022 1.14 Sodium (mmol/L) Date Value 04/09/2022 139 Potassium (mmol/L) Date Value 04/09/2022 4.3 Chloride (mmol/L) Date Value 04/09/2022 105 CO2 (mmol/L) Date Value 04/09/2022 26 Protein, Total (g/dL) Date Value 04/09/2022 7.0 04/09/2022 6.9 Albumin (g/dL) Date Value 04/09/2022 4.5 Calcium, Total (mg/dL) Date Value 04/09/2022 8.0 (L) Alkaline Phosphatase (U/L) Date Value 04/09/2022 57 Bilirubin, Total (mg/dL) (more content not included)... [facility] Lucia Note 04-16-2022 Addendum Note - Jefferson Dewitt MD - 04/16/2022 10:30 AM EST Note Date & Type Note Facility 04-16-2022 Miscellaneous Notes Addended by: JEFFERSON DEWITT on: 04/16/2022 10:30 AM Modules accepted: Orders documented in this encounter [facility] Instructions 04-16-2022 Patient Instructions Note Date & Type Note Facility 04-16-2022 Instructions Jefferson Dewitt MD - 04/16/2022 10:24 AM EST 1. Labs 1 week prior to return 2. RTC 1 year documented in this encounter [facility] History of Present illness Narrative 04-16-2022 Jefferson Dewitt MD - 04/16/2022 10:00 AM EST Note Date & Type Note Facility 04-16-2022 History of Presen t illness Narrative NAME: Morris Belle CLINIC NO.: [id number] DATE [facility]ICE: [facility] Some elements in this clinic note that are critical to medical decision making have been carefully reviewed and included from a prior clinic note dated: April 24, 2021 (Bhupendra) Referring Provider: Taras Wright Additional Clinicians involved in Morris Belle's care: CC: Follow up visit ASSESSMENT: 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 No signs of hypercalcemia, renal failure, anemia, bony lesions. mprotein is low at 0.31 IgG kappa and K/L ratio is now slightly increased. Very unlikely his neuropathy is paraprotein related. Previously IgM was normal. Will monitor Neuropathy No change in neuropathy, no obvious cause. PLAN: 1. Labs 1 week prior to return 2. RTC 1 year HPI: Updated Visit, April 16, 2022: September 2021 was riding his bike and had chest pain. Found a coronary blockage but wasn't stentable. Currently finishing 8 more weeks of cardiac rehab (out of 36). Reviewed labs which remain stable. Occasionally gets an itch that responds to Neurontin. Updated Visit, April 24, 2021: Still very active riding his bike and al his labs are stable including M-Christos. Neuropathy is unchanged overall perhaps a little worse. Affects him worse at night - feels swollen even though it's not. Updated Visit, April 24, 2020: Morris is a 70 year old male who was found to have a MGUS during workup for peripheral neuropathy. He has been followed for several years and his lab results have all been stable except WBC which is elevated. However, his adult son was sick and he may have picked up a upper respiratory infection which he is still suffering through Neuropathy perhaps a little worse - will consider taking gluten out of his diet. We explored the possibility of sleep apnea but he has very few symptoms except for mild daytime somnolence. His neuropathy is consistent with numbness in his feet becca bilateral stocking distribution and he has occasional paresthesias running down his right leg. 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 REVIEW OF SYSTEMS Per HPI and otherwise negative by full review of organ systems. ECOG PERFORMANCE STATUS: 0 PHYSICAL EXAMINATION: Vitals: BP 133/65 Pulse 50 Temp (Src) 97.2 (Temporal) Resp 16 Ht 5' 5.984 (1.68m) Wt 207 lb 9.6 oz (94.2kg) SpO2 94% BMI 33.52 kg/(m^2). Body surface area is 2.09 meters squared. Exam limited to gross visualization where appropriate due to COVID-19. Gen.: This is an age-appropriate patient in no acute distress. Head: Appears atraumatic with no visible lesions. Eyes: Pupils equally round and reactive to light, extraocular muscles are intact. Neck: Supple. Mouth: Masked. Respiratory: Appears to be respiring comfortably. Neurologic: Nonfocal to gross visualization. Alert and oriented 3. Psychiatric: No evidence of inappropriate anxiety or depression. Skin: Visible areas of skin without rash, lesions, wounds or petechiae. ALLERGIES: ALLERGIES No Known Allergies MEDICATIONS: aspirin, enteric coated (ASPIRIN, ENTERIC COATED) 81 mg EC tablet Take 81 mg by mouth. atorvastatin (LIPITOR) 40 mg tablet isosorbide mononitrate ER (IMDUR) 30 mg 24 hr tablet metoprolol tartrate, short acting, (LOPRESSOR) 25 mg tablet TAKE 1 TABLET BY MOUTH EVERY MORNING AND 1 EVERY NIGHT AT BEDTIME naproxen (NAPROSYN) 250 mg tablet Take 250 mg by mouth. gabapentin (NEURONTIN) 300 mg capsule Take 300 mg by mouth twice daily. empagliflozin (JARDIANCE) 10 mg tablet Take 10 mg by mouth. furosemide (LASIX) 40 mg tablet Take by mouth. LABORATORY VALUES: WBC (k/uL) Date Value 04/09/2022 6.52 RBC (m/uL) Date Value 04/09/2022 4.52 Hemoglobin (g/dL) Date Value 04/09/2022 13.5 Hematocrit (%) Date Value 04/09/2022 40.4 MCV (fL) Date Value 04/09/2022 89.4 MCH (pg) Date Value 04/09/2022 29.9 MCHC (g/dL) Date Value 04/09/2022 33.4 RDW-CV (%) Date Value 04/09/2022 12.9 Platelet Count (k/uL) Date Value 04/09/2022 172 MPV (fL) Date Value 04/09/2022 10.9 Glucose (mg/dL) Date Value 04/09/2022 117 (H) BUN (mg/dL) Date Value 04/09/2022 22 Creatinine (mg/dL) Date Value 04/09/2022 1.14 Sodium (mmol/L) Date Value 04/09/2022 139 Potassium (mmol/L) Date Value 04/09/2022 4.3 Chloride (mmol/L) Date Value 04/09/2022 105 CO2 (mmol/L) Date Value 04/09/2022 26 Protein, Total (g/dL) Date Value 04/09/2022 7.0 04/09/2022 6.9 Albumin (g/dL) Date Value 04/09/2022 4.5 Calcium, Total (mg/dL) Date Value 04/09/2022 8.0 (L) Alkaline Phosphatase (U/L) Date Value 04/09/2022 57 Bilirubin, Total (mg/dL) Date Value 04/09/2022 0.5 AST (U/L) Date Value 04/09/2022 32 ALT (U/L) Date Value 04/09/2022 27 Cholesterol, Total (mg/dL) Date Value 04/17/2021 207 (H) Triglyceride (mg/dL) Date Value 04/17/2021 102 DIAGNOSIS: (D47.2) MGUS (monoclonal gammopathy of unknown significance) (primary encounter diagnosis) Plan: B2 MICROGLOBULIN B, CBC + DIFF, COMP METABOLIC PANEL, LD LACTATE DEHYDRO, PHOSPHORUS INORGANIC, PROTEIN ELECTROPHORESIS SERUM W/INTERP, MONOCLONAL PROTEIN, SERUM (BLOOD), URIC ACID BLOOD, CALCIUM IONIZED BLOOD, KAPPA/SERRATO,FREE,SER (G90.09) Idiopathic peripheral autonomic neuropathy Plan: B2 MICROGLOBULIN B, CBC + DIFF, COMP METABOLIC PANEL, LD LACTATE DEHYDRO, PHOSPHORUS INORGANIC, PROTEIN ELECTROPHORESIS SERUM W/INTERP, MONOCLONAL PROTEIN, SERUM (BLOOD), URIC ACID BLOOD, CALCIUM IONIZED BLOOD, KAPPA/SERRATO,FREE,SER History reviewed. No pertinent past medical history. History reviewed. No pertinent surgical history. Social History Tobacco Use Smoking status: Never Smokeless tobacco: Never Substance Use Topics Alcohol use: No History reviewed. No pertinent family history. I spent a total of 30 minutes on the date of the service which included preparing to see the patient, [id number] patient care, completing clinical documentation, performing a medically appropriate examination, counseling and educating the patient/family/caregiver, ordering medications, tests, or procedures, and independently interpreting results (not separately reported). Jefferson Dewitt MD, CPE Hematology and Oncology Services Provided at: [place], [place] CC: Taras Wright MD [address] [facility] [id number] documented in this encounter [facility] Progress note 04-24-2021 Note Date & Type Note Facility 04-24-2021 Note HNO ID: [id number] Author: Jefferson Dewitt MD Service: ? Author Type: Physician Type: Progress Notes Filed: 04/24/2021 9:44 AM Note Text: NAME: Morris Belle CLINIC NO.: [id number] DATE OF SERVICE: April 24, 2021 Some elements in this clinic note that are critical to medical decision making have been carefully reviewed and included from a prior clinic note dated: April 24, 2020 Referring Provider: Taras Wright Additional Clinicians involved in Morris Belle's care: CC: Transition of care ASSESSMENT: 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 No signs of hypercalcemia, renal failure, anemia, bony lesions. mprotein is low at 0.28 IgGkappa and normal K/L ratio. Very unlikely his neuropathy is paraprotein related. Previously IgM was normal. Will monitor without additional Neuropathy Advancing neuropathy, no obvious cause. Consider gluten sensitivity. PLAN: 1. Labs 1 week prior to return 2. RTC 1 year HPI: Updated Visit, April 24, 2021: Still very active riding his bike and al his labs are stable including M-Christos. Neuropathy is unchanged overall perhaps a little worse. Affects him worse at night - feels swollen even though it's not. Updated Visit, April 24, 2020: Morris is a 70 year old male who was found to have a MGUS during workup for peripheral neuropathy. He has been followed for several years and his lab results have all been stable except WBC which is elevated. However, his adult son was sick and he may have picked up a upper respiratory infection which he is still suffering through Neuropathy perhaps a little worse - will consider taking gluten out of his diet. We explored the possibility of sleep apnea but he has very few symptoms except for mild daytime somnolence. His neuropathy is consistent with numbness in his feet becca bilateral stocking distribution and he has occasional paresthesias running down his right leg. 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 REVIEW OF SYSTEMS Per HPI and otherwise negative by full review of organ systems. ECOG PERFORMANCE STATUS: 0 PHYSICAL EXAMINATION: Vitals: BP 152/77 Pulse 65 Temp (Src) 97.8 (Temporal) Resp 16 Ht 5' 5.984 (1.68m) Wt 202 lb 9.6 oz (91.9kg) SpO2 96% BMI 32.72 kg/(m2). Body surface area is 2.07 meters squared. Exam limited to gross visualization where appropriate due to COVID-19. Gen.: This is an age-appropriate patient in no acute distress. Head: Appears atraumatic with no visible lesions. Eyes: Pupils equally round and reactive to light, extraocular muscles are intact. Neck: Supple. Mouth: Masked. Respiratory: Appears to be respiring comfortably. Neurologic: Nonfocal to gross visualization. Alert and oriented ?3. Psychiatric: No evidence of inappropriate anxiety or depression. Skin: Visible areas of skin without rash, lesions, wounds or petechiae. ALLERGIES: ALLERGIES No Known Allergies MEDICATIONS: gabapentin (NEURONTIN) 300 mg capsule Take 300 mg by mouth twice daily. LABORATORY VALUES: Hemoglobin (g/dL) Date Value 04/17/2021 14.7 Hematocrit (%) Date Value 04/17/2021 47.7 WBC (k/uL) Date Value 04/17/2021 8.69 DIAGNOSIS: (D47.2) MGUS (monoclonal gammopathy of unknown significance) (primary encounter diagnosis) Plan: B2 MICROGLOBULIN B, CBC + DIFF, COMP METABOLIC PANEL, LD LACTATE DEHYDRO, PHOSPHORUS INORGANIC, PROTEIN ELECTROPHORESIS SERUM W/INTERP, MONOCLONAL PROTEIN, SERUM (BLOOD), URIC ACID BLOOD, CALCIUM IONIZED B, KAPPA/SERRATO,FREE,SER, VITAMIN B12 BLOOD, FOLATE SERUM, TSH BLD (G90.09) Idiopathic peripheral autonomic neuropathy Plan: PROTEIN ELECTROPHORESIS SERUM W/INTERP, MONOCLONAL PROTEIN, SERUM (BLOOD), VITAMIN B12 BLOOD (E03.9) Hypothyroidism, unspecified type Plan: TSH BLD No past medical history on file. No past surgical history on file. Social History Tobacco Use - Smoking status: Never Smoker - Smokeless tobacco: Never Used Substance Use Topics - Alcohol use: No - Drug use: Not on file No family history on file. Jefferson Dewitt MD, CPE [place], [place] CC: Taras Wright MD ([facility]) [address] [facility] [address] [facility] Evaluation note Note Date & Type Note Facility Evaluation note Diagnosis MGUS (monoclonal gammopathy of unknown significance)- Primary Monoclonal paraproteinemia Idiopathic peripheral autonomic neuropathy Idiopathic peripheral autonomic neuropathy, unspecified documented in this encounter [facility] Summary Purpose Family History No Family History Records FoundNo Family History Records FoundNo Family History Records Found Advance Directives No Advanced Directives Records FoundNo Advanced Directives Records FoundNo Advanced Directives Records Found Additional Source Comments (unrecognized sect ion and content) No Status Records FoundNo Status Records FoundNo Status Records Found INFORMATION SOURCE (unrecogn ized section and content) DATE CREATED AUTHOR 09/27/2017 [facility] DATE CREATED AUTHOR AUTHOR'S ORGANIZ ATION 04/16/2022 [facility] [place] [facility] DATE CREATED AUTHOR AUTHOR'S ORGANIZ ATION 08/16/2022 [facility] Source Comments (unrecognize d section and content) In the event this informatio n is protected by the Federal Confidentiality of Alcohol and Drug Abuse Patient Records regulations: The Federal rules restrict any use of the information to criminally investigate or prosecute any alcohol or drug abuse patient.[facility] Care Teams (unrecognized sec tion and content) [employer] Flu[employer] Specialist Relationship Specialty Start Date End Date Taras Wright [place] [address] PCP - General Family Medicine 06/20/17 FOR RECORDS PERTAINING TO PATIENTS WHO ARE OR HAVE BEEN ENROLLED IN A CHEMICAL DEPENDENCY/SUBSTANCEABUSE PROGRAM, SOME INFORMATION MAY BE OMITTED. This clinical summary was aggregated from multiple sources. Caution should be exercised in using it in the provision of clinical care. This summary normalizes information from multiple sources, and as a consequence, information in this document may materially change the coding, format and clinical context of patient data. In addition, data may be omitted in some cases. CLINICAL DECISIONS SHOULD BE BASED ON THE PRIMARY CLINICAL RECORDS. [email or web address] provides no warranty or guarantee of the accuracy or completeness of information in this document.
== END 2023-02-21 12:34 | disposition home or self-care (01) ==
PROVIDERS: PCP Family Medicine; Visit Provider Podiatrist Foot & Ankle Surgery
DX: Z01.812 Encounter for preprocedural laboratory examination (principal); M21.621 Bunionette of right foot; M20.41 Other hammer toe(s) (acquired), right foot
CPT/HCPCS: 80048; G0463

== ENCOUNTER 2023-03-07 07:36 | Day surgery (SDC) | payer MEDICARE, OTHER, SELFPAY ==
[2023-02-21 13:16] VITALS: BP 140/62; PULSE 60; RESP 18; TEMP 36.2; O2SAT 96; BMI 32.0
[2023-03-07] VITALS (12 sets, daily range): BP systolic 106–154; BP diastolic 62–81; PULSE 68–84; RESP 9–25; TEMP 36–36.1; O2SAT 92–98; BMI 31.7
[2023-03-07 08:01] LABS: Glucometer 120 mg/dL (74-106)
[2023-03-07] MEDS: LACTATED RINGER'S SOLUTION 1,000 ML 50 ML IV (08:20)
[2023-03-07] MEDS: CEFAZOLIN SODIUM/DEXTROSE,ISO 2 GM/50 ML PIGGYBACK IV (09:52)
[2023-03-07] MEDS: BUPIVACAINE HCL 0.5% PF 50 MG/10 ML VIAL INJ (10:17)
[2023-03-07] MEDS: LIDOCAINE HCL 1% 100 MG/10 ML MDV INJ (10:17)
[2023-03-07 11:40] LABS: Glucometer 121 mg/dL (74-106)
--- NOTE | 2023-03-07 11:52 | XR_ITS ---
The [address] [address] Patient Name: SALINAS FLOYD MRN: [id number] date: 1950 Sex: M Assigned Patient Location: [facility] Current Patient Location: Accession/Order Number: [id number] Exam Date: 03/07/2023 11:45 Report Date: 03/08/2023 09:31 At the request of: LISA MEADE Procedure: XR foot RT min 3V EXAM: XR foot RT min 3V HISTORY: Postop xr PACU COMPARISON: 12/29/2022. TECHNIQUE: Routine views of the XR foot RT min 3V FINDINGS/ XR/XR foot RT min 3V IMPRESSION: 1. No acute fractures. Osteotomy along the lateral aspect of the fifth metatarsal head/neck. 2. Advanced atherosclerosis. 3. Mild to moderate first MTP and mild scattered interphalangeal degeneration. Electronically authenticated by: LAUREANO DUPREE Date: 03/08/2023 09:31
--- NOTE | 2023-03-07 12:42 | PM.ORONB ---
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 All toes were semi-reducible. No signs of infection. Prominent lateral eminence of the 5th metatarsal head. Bone quality within normal limits. Procedure in detail: Patient was identified in pre op and consent was reviewed. Correct side and site were identified and marked. Pre-op antibiotics were started. Patient was brought to OR suite and place on table in a supine position. General anesthesia was administered. Tourniquet applied. Operative extremity was prepped and draped in usual sterile fashion. Formal time-out was performed and the foot/ankle were exsanguinated and tourniquet inflated. With attention to the 2nd digit a longitudinal dorsal incision was created over the PIPJ. Sharp and blunt dissection down to the extensor tendon was performed. The tendon was incised transversely then reflected proximally. A sagittal saw was used to remove the proximal phalanx head. The site was flushed with sterile saline. With attention to the 3rd digit a longitudinal dorsal incision was created over the PIPJ. Sharp and blunt dissection down to the extensor tendon was performed. The tendon was incised transversely then reflected proximally. A sagittal saw was used to remove the proximal phalanx head. The site was flushed with sterile saline. With attention to the 4th digit a longitudinal dorsal incision was created over the PIPJ. Sharp and blunt dissection down to the extensor tendon was performed. The tendon was incised transversely then reflected proximally. A sagittal saw was used to remove the proximal phalanx head. The site was flushed with sterile saline. With attention to the 5th digit a semi-elliptical dorsal incision was created over the PIPJ. Sharp and blunt dissection down to the extensor tendon was performed. The tendon was incised transversely then reflected proximally. A sagittal saw was used to remove the proximal phalanx head. The site was flushed with sterile saline. The tendons to each toe were repaired with absorbable suture. incision was placed over the lateral aspect of the 5th metatarsal head. Comminution sharp and blunt dissection gained access to the capsule of the 5th metatarsal phalangeal joint. The capsule was reflected exposing the 5th metatarsal head. The lateral eminence was resected and excised using sagittal saw. 5th metatarsal head was then contoured and smoothed with a rasp. All surgical sites were irrigated with copious saline incisions were closed in layers. Tourniquet was deflated and prompt hyperemic response is noted. A dry sterile dressing and surgical shoe was applied. Patient tolerated procedure and anesthesia well transferred to the recovery room with vital signs stable and brisk capillary refill to all digits of the right foot Postoperative plan: Discharge home under family's care Post op instructions provided verbally and written prescription(s) were placed in chart WBAT in surgical shoe until incisions are healed Follow-up in 1 week Implants: none Anesthesia: General-LMA Surgeon: [facility] Office Director: Marshall Kim Estimated blood loss (mL): 10 Condition: stable Disposition: PACU Preoperative Details Reason for procedure: patient is a 73-year-old male with type 2 diabetes with peripheral neuropathy and PAD. He presents me for worsening right lesser toe contractures associated with pre-ulcerative lesions. Is also having pain and irritation on the lateral eminence of the 5th metatarsal head. Due to his failure to respond to nonsurgical care and he wished to undergo surgical correction. He was educated all potential risks and benefits as patient is at high risk for perioperative complication including wound, infection and recurrence. In addition his PAD placement high risk for healing issues and could lead to toe amputation. All questions were answered to patient's satisfaction
== END 2023-03-07 12:30 | disposition home or self-care (01) ==
PROVIDERS: PCP Family Medicine; Visit Provider Podiatrist Foot & Ankle Surgery
PROC: (CPT 28110; principal; 2023-03-07 08:30)
DX: M21.621 Bunionette of right foot (principal); M20.41 Other hammer toe(s) (acquired), right foot; I10 Essential (primary) hypertension; E11.42 Type 2 diabetes mellitus with diabetic polyneuropathy; E11.51 Type 2 diabetes mellitus with diabetic peripheral angiopathy without gangrene; M19.90 Unspecified osteoarthritis, unspecified site; Z86.16 Personal history of COVID-19; E78.00 Pure hypercholesterolemia, unspecified; Z86.010 Personal history of colon polyps; J30.2 Other seasonal allergic rhinitis; Z90.49 Acquired absence of other specified parts of digestive tract; I83.018 Varicose veins of right lower extremity with ulcer other part of lower leg; L97.811 Non-pressure chronic ulcer of other part of right lower leg limited to breakdown of skin; L84 Corns and callosities; I25.10 Atherosclerotic heart disease of native coronary artery without angina pectoris; E20.9 Hypoparathyroidism, unspecified; K21.9 Gastro-esophageal reflux disease without esophagitis
CPT/HCPCS: 28110; 28285 ×4; 36415; 73630; 82948; J2704

== ENCOUNTER 2023-11-29 11:10 | Outpatient (OUT) | payer MEDICARE, OTHER, SELFPAY ==
--- NOTE | 2023-11-29 | XR_ITS ---
The [address] [address] Patient Name: SALINAS FLOYD MRN: [id number] date: 1950 Sex: M Assigned Patient Location: Current Patient Location: Accession/Order Number: [id number] Exam Date: 11/29/2023 11:13 Report Date: 11/30/2023 06:20 At the request of: TAMMY ROY Procedure: XR foot RT min 3V PROCEDURE: XR foot RT min 3V HISTORY: RIGHT FOOT PAIN ; chronic distal 5th metatarsal pain COMPARISON: XR foot right 03/07/2023 FINDINGS: BONES:Moderate degenerative change of first metatarsophalangeal joint. Prior resection of heads of second, third, and fourth proximal phalanges. Prior bunionectomy lateral margin of 5th metatarsal. SOFT TISSUES:No visible soft tissue swelling. EFFUSION:None visible. OTHER: Atherosclerotic disease. XR/XR foot RT min 3V IMPRESSION: 1. Stable surgical changes and degenerative changes. 2. No new or suspicious findings. Electronically authenticated by: DAVID HAGEN Date: 11/30/2023 06:20
--- OUTSIDE RECORDS SUMMARY | 2023-11-29 11:21 | XMS_ITS | CCD ---
Author Organization [facility] Care Team Providers Care Legal Stenographer Name Role Phone FAVIOLA NOLAN Unavailable Unavailable FAVIOLA NOLAN Unavailable Unavailable MUTGI, CHAVEZ Unavailable Unavailable MUTROBERT, CHAVEZ Unavailable Unavailable Taras Wright Primary Care Provider TAMMY ROY Admitting Unavailable TAMMY ROY Attending Unavailable JEFFERSON DEWITT Attending Unavailable TARAS WRIGHT Primary Care Unavailable TARAS WRIGHT Primary Care Unavailable Taras Wright MD Primary Care Provider TARAS WRIGHT Attending Unavailable FAVIOLA GONZALEZ Attending Unavailable TARAS WRIGHT Referring Unavailable TARAS WRIGHT Primary Care Unavailable LIBORIO LLANOS Referring Unavailable TARAS WRIGHT Primary Care Unavailable TARAS WRIGHT Referring Unavailable KYLE, TARAS Primary Care Unavailable KYLE, TARAS Referring Unavailable TARAS WRIGHT Primary Care Unavailable Allergies Allergy Classification Reported Allergen(s) Allergy Type Date of Onset Reaction(s) Facility (1 source) 64892,00; Translations: [05202,00] Propensity to adverse reactions (disorder) 0 [facility] Repository Medications Current Medications Medication Drug Class(es) Dates Sig (Normalized) Sig (Original) acetaminophen 500 mg oral tablet (2 sources) Start: 12-14-2022 take 1 tablet by mouth every six hours as needed for pain acetaminophen (TYLENOL EXTRA STRENGTH) 500 mg tablet Take 1 tablet (500 mg total) by mouth every 6 (six) hours as needed for pain. 30 tablet 0 12/14/2022 Active aspirin 81 mg delayed release oral tablet (3 sources) Platelet Aggregation Inhibitor, Nonsteroidal Anti-inflammatory Drug Start: 11-18-2021 take 1 tablet by mouth in the morning aspirin 81 mg Take 1 tablet (81 mg total) by mouth in the morning. 2 tablet 0 11/18/2021 Active Comment on above: Take 81 mg by mouth. atorvastatin 40 mg oral tablet (3 sources) HMG-CoA Reductase Inhibitor Start: 10-28-2022 take 1 tablet by mouth in the morning atorvastatin (LIPITOR) 40 mg tablet Take 1 tablet (40 mg total) by mouth in the morning. 90 tablet 2 10/28/2022 Active Start: 02-10-2022 atorvastatin ( LIPITOR) 40 mg tablet gabapentin 300 mg oral capsule (3 sources) Anti-epileptic Agent take 1 capsule by mouth in the morning, then take 1 capsule by mouth at bedtime gabapentin (NEURONTIN) 300 mg capsule Take 1 capsule (300 mg total) by mouth in the morning and 1 capsule (300 mg total) before bedtime. 0 Active Comment on above: Take 300 mg by mouth twice daily. 24 hr isosorbide mononitrate 30 mg extended release oral tablet (3 sources) Nitrate Vasodilator Start: 08-03-19 take 1 tablet by mouth once daily isosorbide mononitrate (IMDUR) 30 mg 24 hr tablet Take 1 tablet (30 mg total) by mouth daily. 90 tablet 3 08/02/2022 Active Start: 02-10-2022 isosorbide mon onitrate ER (IMDUR) 30 mg 24 hr tablet metoprolol tartrate 25 mg oral tablet (3 sources) beta-Adrenergic Marshall Start: 10-28-2022 take 1 tablet by mouth in the morning, then take 1 tablet by mouth at bedtime metoprolol tartrate (LOPRESSOR) 25 mg tablet Take 1 tablet (25 mg total) by mouth in the morning and 1 tablet (25 mg total) before bedtime. 180 tablet 3 10/28/2022 Active Start: 02-10-2022 take 1 tablet by myrna th once daily in the morning, then take 1 tablet by mouth once daily at bedtime metoprolol tartrate, short acting, (LOPRESSOR) 25 mg tablet TAKE 1 TABLET BY MOUTH EVERY MORNING AND 1 EVERY NIGHT AT BEDTIME 0 02/10/2022 Active Comment on above: TAKE 1 TABLET BY MYRNA TH EVERY MORNING AND 1 EVERY NIGHT AT BEDTIME nitroglycerin 0.4 mg sublingual tablet (1 source) Nitrate Vasodilator Start: 06-27-2023 nitroglycerin (NITROSTAT) 0.4 MG SL tablet 1 under the tongue as needed for angina, may repeat q5mins for up three doses 25 tablet 11 06/27/2023 Active Completed/Discontinued Medications Medication Drug Class(es) Dates Sig (Normalized) Sig (Original) empagliflozin 10 mg oral tablet (1 source) Sodium-Glucose Cotransporter 2 Inhibitor Start: 12-03-2021 empagliflozin (JARDIANCE) 10 mg tablet Take 10 mg by mouth. 0 12/03/2021 Active Comment on above: Take 10 mg by mouth. furosemide 40 mg oral tablet (3 sources) Loop Diuretic Start: 09-11-2020 End: 06-27-2023 furosemide (LASIX) 40 mg tablet Take by mouth daily as needed. 0 09/11/2020 06/27/2023 Discontinued Comment on above: Take by mouth. naproxen 250 mg oral tablet (1 source) Nonsteroidal Anti-inflammatory Drug naproxen (NAPROSYN) 250 mg tablet Take 250 mg by mouth. 0 Active Comment on above: Take 250 mg by mouth . Problems Active Problems Problem Classification Problem Date Documented Da te Episodic/Chronic Acquired foot deformities (2 sources) Acquired hallux malleus; Translations: [Other hammer toe(s) (acquired), right foot] Onset: 01-12-2023 01-12-2023 Chronic Coronary atherosclerosis and other heart disease (6 sources) Coronary arteriosclerosis; Translations: [Atherosclerotic heart disease of [place] coronary artery with other forms of angina pectoris] Onset: 11-18-2021 Resolved: 12-28-2022 11-18-2021 Chronic Diabetes mellitus with complications (2 sources) Type 2 diabetes mellitus; Translations: [Type 2 diabetes mellitus with diabetic polyneuropathy] Onset: 01-12-2023 01-12-2023 Chronic Diabetes mellitus without complication (1 source) Prediabetes; Translations: [Prediabetes] Onset: 08-26-2023 Episodic Disorders of lipid metabolism (1 source) Hyperlipidemia, unspecified; Translations: [Hyperlipidemia, unspecified] Onset: 08-19-2023 Chronic Neoplasms of unspecified nature or uncertain behavior (2 sources) Monoclonal gammopathy of uncertain significance; Translations: [Monoclonal gammopathy] Onset: 04-20-2018 Chronic Other aftercare (1 source) Other assisted (current) drug therapy; Translations: [Other extermination inspector (current) drug therapy] Onset: 08-26-2023 Episodic Other diseases of veins and lymphatics (1 source) Venous insufficiency (chronic) (peripheral); Translations: [Venous insufficiency (chronic) (peripheral)] Onset: 08-30-2023 Episodic Other hereditary and degenerative nervous system conditions (1 source) Idiopathic peripheral autonomic neuropathy; Translations: [Other idiopathic peripheral autonomic neuropathy] Chronic Other nervous system disorders (1 source) Neuropathy; Translations: [Polyneuropathy, unspecified] Onset: 04-20-2018 04-20-2018 Chronic Other screening for suspected conditions (not mental disorders or infectious disease) (5 sources) Cardiovascular stress test abnormal; Translations: [Abnormal result of other cardiovascular function study] Onset: 11-18-2021 11-18-2021 Episodic Other upper respiratory disease (2 sources) Allergic rhinitis; Translations: [Allergic rhinitis, unspecified] Onset: 06-08-2021 06-08-2021 Chronic Peripheral and visceral atherosclerosis (3 sources) Peripheral vascular disease; Translations: [Peripheral vascular disease, unspecified] Onset: 01-12-2023 01-12-2023 Chronic Past or Other Problems Problem Classification Problem Date Documented Da te Episodic/Chronic Acquired foot deformities (2 sources) Tailor's bunion of right foot; Translations: [Bunionette of right foot] Onset: 01-12-2023 01-12-2023 Episodic Nonspecific chest pain (2 sources) Chest pain; Translations: [Chest pain, unspecified] Onset: 11-18-2021 11-18-2021 Episodic Other aftercare (5 sources) Follow-up examination, following other surgery; Translations: [Encounter for follow-up examination after completed treatment for conditions other than malignant neoplasm] Onset: 07-19-2014 Episodic Other and unspecified benign neoplasm (2 sources) Personal history of colonic polyps; Translations: [Personal history of colonic polyps] Onset: 07-19-2014 Episodic Other non-traumatic joint disorders (2 sources) Pain in right shoulder; Translations: [Pain in joint, shoulder region] Onset: 04-15-2021 04-15-2021 Episodic Other skin disorders (2 sources) Corns and callus; Translations: [Corns and callosities] Onset: 01-12-2023 01-12-2023 Episodic Other skin disorders (2 sources) Ingrowing nail; Translations: [Ingrowing nail] Onset: 01-12-2023 01-12-2023 Episodic Residual codes; unclassified (2 sources) Edema of right lower leg; Translations: [Localized edema] Onset: 01-12-2023 01-12-2023 Episodic Unclassified (1 source) FOLLOW-UP SURGERY NEC; Translations: [FOLLOW-UP SURGERY NEC] Onset: 07-19-2014 Varicose veins of lower extremity (2 sources) Varicose ulcer of lower extremity; Translations: [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] Onset: 01-12-2023 01-12-2023 Episodic Results Test Name Value Interpretation Reference Range Facility BASIC METABOLIC PANLon 08-25 Anion gap [Moles/Vol] 9 mmol/L Normal 5-15 [facility] Comment on above: Performed By: #### B KEITH, LIVR, 2857-1, CBCA, HA1C #### [facility] ([id number]) [address], [address] [place] [address] Calcium [Mass/Vol] 8.6 mg/dL Normal 8.5-10.5 [facility] Comment on above: Performed By: #### B KEITH, LIVR, 2857-1, CBCA, HA1C #### [facility] ([id number]) [address], [address] [place] [address] Chloride [Moles/Vol] 105 mmol/L Normal 98-109 [facility] Comment on above: Performed By: #### B MP, LIVR, 2857-1, CBCA, HA1C #### [facility] ([id number]) [address], [address] [place] [address] CO2 [Moles/Vol] 27 mmol/L Normal 22-32 [facility] Comment on above: Performed By: #### B MP, LIVR, 2857-1, CBCA, HA1C #### [facility] ([id number]) [address], [address] [place] [address] Creatinine [Mass/Vol] 1.11 mg/dL Normal 0.60-1.30 [facility] Comment on above: Result Comment: METH OD TRACEABLE TO IDMS STANDARD Performed By: #### B BRADLEY PARKER, 2857-1, HONORIO GALLO #### [facility] ([id number]) [address], [address] [place] [address] GFR/1.73 sq M.predicted among non-blacks MDRD (S/P/Bld) [Vol rate/Area] 71 mL/min/{1.73_m2} Normal >59 [facility] Comment on above: Result Comment: Reported eGFR is based on the CKD-EPI 2020 equation that does not use a race coefficient. Performed By: #### B BRADLEY PARKER, 2857-1, HONORIO GALLO #### [facility] ([id number]) [address], [address] [place] [address] Glucose [Mass/Vol] 115 mg/dL High 65-99 [facility] Comment on above: Performed By: #### B KEITH LIVR, 2857-1, CBCJerri, HALauren #### [facility] ([id number]) [address] [address] [place] [address] Potassium [Moles/Vol] 4.0 mmol/L Normal 3.5-5.0 [facility] Comment on above: Performed By: #### B KEITH LIVR, 2857-1, CBCJerri, HA1C #### [facility] ([id number]) [address], [address] [place] [address] Sodium [Moles/Vol] 141 mmol/L Normal 134-146 [facility] Comment on above: Performed By: #### B KEITH, LIVR, 2857-1, CBCJerri, HA1C #### [facility] ([id number]) [address], [address] [place] [address] Urea nitrogen [Mass/Vol] 20 mg/dL Normal 5-27 [facility] Comment on above: Performed By: #### B MP, LIVR, 2857-1, CBCA, HA1C #### [facility] ([id number]) [address], [address] [place] [address] CBC AND AUTO DIFFon 05-24-20 24 ABSOLUTE BASOPHIL 0.1 X10E9/L Normal 0.0-0.2 [facility] Comment on above: Performed By: #### B MP, LIVR, 2857-1, CBCA, HA1C #### [facility] ([id number]) [address], [facility] [address] [place] [address] ABSOLUTE NEUTROPHIL 2.4 X10E9/L Normal 1.5-6.6 [facility] Comment on above: Performed By: #### B MP, LIVR, 2857-1, CBCA, HA1C #### [facility] ([id number]) [address], [facility] [address] [place] [address] Basophils/100 WBC (Bld) 1.1 % Normal [facility] Comment on above: Performed By: #### B MP, LIVR, 2857-1, CBCA, HA1C #### [facility] ([id number]) [address], [address] [place] [address] Eosinophils (Bld) [#/Vol] 0.2 10*3/uL Normal 0.0-0.4 [facility] Comment on above: Performed By: #### B MP, LIVR, 2857-1, CBCA, HA1C #### [facility] ([id number]) [address] [address] [place] [address] Eosinophils/100 WBC (Bld) 3.5 % Normal [facility] Comment on above: Performed By: #### B MP, LIVR, 2857-1, CBCA, HA1C #### [facility] ([id number]) [address], [address] [place] [address] Erythrocyte distribution width (RBC) [Ratio] 14.1 % Normal 11.5-15.0 [facility] Comment on above: Performed By: #### B MP, LIVR, 2857-1, CBCA, HA1C #### [facility] ([id number]) [address] [address] [place] [address] Hematocrit (Bld) [Volume fraction] 38.2 % Low 39-49 [facility] Comment on above: Performed By: #### B MP, LIVR, 2857-1, CBCA, HA1C #### [facility] ([id number]) [address], [facility] [address] [place] [address] Hemoglobin (Bld) [Mass/Vol] 13.0 g/dL Normal 13.0-17.0 [facility] Comment on above: Performed By: #### B MP, LIVR, 2857-1, CBCA, HA1C #### [facility] ([id number]) [address], [facility] [address] [place] [address] Lymphocytes (Bld) [#/Vol] 3.2 10*3/uL Normal 1.0-3.5 [facility] Comment on above: Performed By: #### B MP, LIVR, 2857-1, CBCA, HA1C #### [facility] ([id number]) [address], [facility] [address] [place] [address] Lymphocytes/100 WBC (Bld) 48.4 % Normal [facility] Comment on above: Performed By: #### B MP, LIVR, 2857-1, CBCA, HA1C #### [facility] ([id number]) [address] [address] [place] [address] MCH (RBC) [Entitic mass] 30.6 pg Normal 27-34 [facility] Comment on above: Performed By: #### B MP, LIVR, 2857-1, CBCA, HA1C #### [facility] ([id number]) [address] [address] [place] [address] MCHC (RBC) [Mass/Vol] 34.0 g/dL Normal 32-36 [facility] Comment on above: Performed By: #### B MP, LIVR, 2857-1, CBCA, HA1C #### [facility] ([id number]) [address], [facility] [address] [place] [address] MCV (RBC) [Entitic vol] 90 fL Normal 80-100 [facility] Comment on above: Performed By: #### B MP, LIVR, 2857-1, CBCA, HA1C #### [facility] ([id number]) [address] [address] [place] [address] Monocytes (Bld) [#/Vol] 0.7 10*3/uL Normal 0-0.9 [facility] Comment on above: Performed By: #### B MP, LIVR, 2857-1, CBCA, HA1C #### [facility] ([id number]) [address] [address] [place] [address] Monocytes/100 WBC (Bld) 10.9 % Normal [facility] Comment on above: Performed By: #### B MP, LIVR, 2857-1, CBCA, HA1C #### [facility] ([id number]) [address] [address] [place] [address] Neutrophils/100 WBC (Bld) 36.1 % Normal [facility] Comment on above: Performed By: #### B MP, LIVR, 2857-1, CBCA, HA1C #### [facility] ([id number]) [address], [address] [place] [address] Platelet mean volume (Bld) [Entitic vol] 10.3 fL Normal 7-12 [facility] Comment on above: Performed By: #### B MP, LIVR, 2857-1, CBCA, HA1C #### [facility] ([id number]) [address] [address] [place] [address] Platelets (Bld) [#/Vol] 164 10*3/uL Normal 150-450 [facility] Comment on above: Performed By: #### B MP, LIVR, 2857-1, CBCA, HA1C #### [facility] ([id number]) [address] [address] [place] [address] RBC COUNT 4.24 X10E12/L Normal 4.10-5.70 [facility] Comment on above: Performed By: #### B MP, LIVR, 2857-1, CBCA, HA1C #### [facility] ([id number]) [address] [address] [place] [address] WBC (Bld) [#/Vol] 6.6 10*3/uL Normal 4.0-11.0 [facility] Comment on above: Performed By: #### B MP, LIVR, 2857-1, CBCA, HA1C #### [facility] ([id number]) [address] [address] [place] [address] HGB A1C (GLYCO-HGB)on 2023 Glucose [Mass/Vol] 146 mg/dL Normal [facility] Comment on above: Performed By: #### B MP, LIVR, 2857-1, CBCA, HA1C #### [facility] ([id number]) [address] [address] [place] [address] HbA1c (Bld) [Mass fraction] 6.7 % High 4.4-5.6 [facility] Comment on above: Result Comment: NOTE ADA Guidelines Result HgbA1c Normal : less than 5.7 % Prediabetes : 5.7 % to 6.4 % Diabetes : > 6.4 % Use with caution in patients with abnormal hemoglobin variants as the half-life of red blood cells and in vivo glycation rates are affected. Performed By: #### B MP, LIVR, 2857-1, CBCA, HA1C #### [facility] ([id number]) [address], [address] [place] [address] LIVER PANELon 08-26-2023 Albumin [Mass/Vol] 4.4 g/dL Normal 3.2-5.3 [facility] Comment on above: Performed By: #### B MP, LIVR, 2857-1, CBCA, HA1C #### [facility] ([id number]) [address], [facility] [address] [place] [address] ALP [Catalytic activity/Vol] 56 U/L Normal 39-130 [facility] Comment on above: Performed By: #### B MP, LIVR, 2857-1, CBCA, HA1C #### [facility] ([id number]) [address], [address] [place] [address] ALT [Catalytic activity/Vol] 37 U/L Normal 0-40 [facility] Comment on above: Performed By: #### B MP, LIVR, 2857-1, CBCA, HA1C #### [facility] ([id number]) [address], [facility] [address] [place] [address] AST [Catalytic activity/Vol] 33 U/L Normal 0-41 [facility] Comment on above: Performed By: #### B MP, LIVR, 2857-1, CBCA, HA1C #### [facility] ([id number]) [address], [facility] [address] [place] [address] Bilirubin [Mass/Vol] 1.3 mg/dL High 0.3-1.2 [facility] Comment on above: Performed By: #### B MP, LIVR, 2857-1, CBCA, HA1C #### [facility] ([id number]) [address], [address] [place] [address] Bilirubin.direct [Mass/Vol] 0.2 mg/dL Normal 0.0-0.4 [facility] Comment on above: Performed By: #### B KEITH, LIVR, 2857-1, CBCA, HA1C #### [facility] ([id number]) [address], [address] [place] [address] Protein [Mass/Vol] 7.4 g/dL Normal 6.0-8.0 [facility] Comment on above: Performed By: #### B KEITH, LIVR, 2857-1, CBCA, HA1C #### [facility] ([id number]) [address], [facility] [address] [place] [address] Prostate specific Ag [Mass/V ol]on 08-26-2023 PSA SCREEN 1.29 ng/mL Normal 0.00-4.00 [facility] Comment on above: Result Comment: The method used for this test is Chelo Mabie DXI chemiluminescent immunoassay. Values obtained by different assay methods cannot be used interchangeably. Performed By: #### B KEITH, LIVBeulah, 2857-1, CBCA, HA1C #### [facility] ([id number]) [address], [address] [place] [address] Lipid 1996 panelon 4 Cholesterol [Mass/Vol] 128 mg/dL Low 150-200 [facility] Comment on above: Performed By: #### 2 4331-1 #### [facility] ([id number]) [address], [address] [place] [address] Cholesterol in HDL [Mass/Vol] 47 mg/dL Normal >39 [facility] Comment on above: Result Comment: HDL <40 mg/dL - High Risk HDL > or = 40mg/dL- Desirable HDL >60 mg/dL - Negative Risk Performed By: #### 2 4331-1 #### [facility] ([id number]) [address], [facility] [address] [place] [address] Cholesterol in LDL [Mass/Vol] 53 mg/dL Normal <130 [facility] Comment on above: Result Comment: LDL <100 mg/dL - Desirable LDL >160 mg/dL - High Risk Performed By: #### 2 4331-1 #### [facility] ([id number]) [address], [facility] [address] [place] [address] Cholesterol in VLDL [Mass/Vol] 28 mg/dL Normal 0-30 [facility] Comment on above: Performed By: #### 2 4331-1 #### [facility] ([id number]) [address], [address] [place] [address] CHOLESTEROL:HDL 2.7 Normal 1.0-5.0 [facility] Comment on above: Performed By: #### 2 4331-1 #### [facility] ([id number]) [address], [address] [place] [address] Triglyceride [Mass/Vol] 141 mg/dL Normal 27-150 [facility] Comment on above: Performed By: #### 2 4331-1 #### [facility] ([id number]) [address], [address] [place] [address] CNOVSPon 04-15-2023 SANTO Visit (SP) Office (HEMASA) MORRIS BELLE ([id number]) 1950 M Date Time Provider Department 04/15/23 10:00 AM JEFFERSON DEWITT During your visit today, we recorded the following information about you: Temperature Pulse Respiration Blood pressure 97.3 degrees 53/minute 16/minute 145/70 Weight Height 92.5 kg 1.676 m Jefferson Dewitt MD 04/16/2023 12:04 PM Signed NAME: Morris Belle CLINIC NO.: [id number] DATE OF SERVICE: April 15, 2023 (Bhupendra) Some elements in this clinic note that are critical to medical decision making have been carefully reviewed and included from a prior clinic note dated: April 16, 2022 (Bhupendra) Referring Provider: Taras Wright Additional Clinicians involved in Morris Belle's care: DIAGNOSIS: MGUS ASSESSMENT: 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 No signs of hypercalcemia, renal failure, anemia, bony lesions. M-protein is low at 0.44 IgG kappa and K/L ratio is slightly increased. Very unlikely his neuropathy is paraprotein related. Previously IgM was normal. Will monitor Neuropathy No change in neuropathy, no obvious cause. PLAN: 1. Labs 1 week prior to return 2. RTC 1 year HPI: CASE HISTORY: Reverse Chronological Order Updated Visit, April 15, 2023: No real change in neuropathy. Frustrated as feet and some in his hands with no explanation. Had a bout of cellulitis. Would be interested in an elimination diet but not right now. Son has hydrocephalus and needs constant care. Updated Visit, April 16, 2022: September 2021 [...] his right leg. 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 - REVIEW OF SYSTEMS Per HPI and otherwise negative by full review of organ systems. - ECOG PERFORMANCE STATUS: 0 PHYSICAL EXAMINATION: Vitals: BP 145/70 Pulse 53 Temp (Src) 97.3 (Temporal) Resp 16 Ht 5' 5.984 (1.68m) Wt 203 lb 14.8 oz (92.5kg) SpO2 97% BMI 32.93 kg/(m2). Body surface area is 2.08 meters squared. Exam limited to gross visualization [...] skin without rash, lesions, wounds or petechiae. - ALLERGIES: ALLERGIES No Known Allergies MEDICATIONS: aspirin, enteric coated (ASPIRIN, ENTERIC COATED) 81 mg EC tablet Take 81 mg by mouth. atorvastatin (LIPITOR) 40 mg tablet furosemide (LASIX) 40 mg tablet Take by mouth. isosorbide mononitrate ER (IMDUR) 30 mg 24 hr tablet metoprolol tartrate, short acting, (LOPRESSOR) 25 mg tablet TAKE 1 TABLET BY MOUTH EVERY MORNING AND 1 EVERY NIGHT AT BEDTIME gabapentin (NEURONTIN) 300 mg capsule Take 300 mg by mouth twice daily. empagliflozin (JARDIANCE) 10 mg tablet Take 10 mg by mouth. naproxen (NAPROSYN) 250 mg tablet Take 250 mg by mouth. - L (more content not included)... Normal [facility] B2 Microglob SerPl-mCncon Wndq-4-Cjrnzyngxtvdm [Mass/Vol] 2.1 ug/mL Normal <3.1 [facility] Comment on above: Order Comment: Speci men Type: BLOOD SPECIMENOrdering Facility: [facility] Address: [address] [place] [address] Result Comment: Beta -2 Microglobulin test is performed using the [employer] immunoturbidimetric method. Results obtained with different methods or kits cannot be used interchangeably. Performed By: #### 1 952-1, 2885-2 ####[facility] [id number] [facility] [id number] [address] [place] CBC W Auto Differential pane l (Bld)on 04-08-2023 Basophils (Bld) [#/Vol] 0.09 10*3/uL Normal <0.11 [facility] Comment on above: Order Comment: Speci men Type: BLOOD SPECIMENOrdering Facility: [facility] Address: [address] [place] [address] Performed By: #### 5 7021-8 ####[facility] LABCLIA [id number] [place] [address] Basophils/100 WBC (Bld) 1.2 % Normal [facility] Comment on above: Order Comment: Speci men Type: BLOOD SPECIMENOrdering Facility: [facility] Address: [address] [place] [address] Performed By: #### 5 7021-8 ####[facility]CLIA [id number] [place] [address] Differential cell count method Nom (Bld) Auto Normal [facility] Comment on above: Order Comment: Speci men Type: BLOOD SPECIMENOrdering Facility: [facility] Address: [address] [place] [address] Performed By: #### 5 7021-8 ####[facility]CLIA [id number] [place] [address] Eosinophils (Bld) [#/Vol] 0.25 10*3/uL Normal <0.46 [facility] Comment on above: Order Comment: Speci men Type: BLOOD SPECIMENOrdering Facility: [facility] Address: [address] [place] [address] Performed By: #### 5 7021-8 ####[facility]CLIA [id number] [place] [address] Eosinophils/100 WBC (Bld) 3.4 % Normal [facility] Comment on above: Order Comment: Speci men Type: BLOOD SPECIMENOrdering Facility: [facility] Address: [address] [place] [address] Performed By: #### 5 7021-8 ####[facility]CLIA [id number] [place] [address] Erythrocyte distribution width (RBC) [Ratio] 13.6 % Normal 11.5-15.0 [facility] Comment on above: Order Comment: Speci men Type: BLOOD SPECIMENOrdering Facility: [facility] Address: [address] [place] [address] Performed By: #### 5 7021-8 ####[facility]CLIA [id number] [place] [address] Hematocrit (Bld) [Volume fraction] 39.7 % Normal 39.0-51.0 [facility] Comment on above: Order Comment: Speci men Type: BLOOD SPECIMENOrdering Facility: [facility] Address: [address] [place] [address] Performed By: #### 5 7021-8 ####[facility]CLIA [id number] [place] [address] Hemoglobin (Bld) [Mass/Vol] 13.4 g/dL Normal 13.0-17.0 [facility] Comment on above: Order Comment: Speci men Type: BLOOD SPECIMENOrdering Facility: [facility] Address: [address] [place] [address] Performed By: #### 5 7021-8 ####[facility]CLIA [id number] [place] [address] Immature granulocytes (Bld) [#/Vol] 10*3/uL Normal <0.10 [facility] Comment on above: Order Comment: Speci men Type: BLOOD SPECIMENOrdering Facility: [facility] Address: [address] [place] [address] Performed By: #### 5 7021-8 ####[facility]CLIA [id number] [place] [address] Immature granulocytes/100 WBC (Bld) 0.3 % Normal [facility] Comment on above: Order Comment: Speci men Type: BLOOD SPECIMENOrdering Facility: [facility] Address: [address] [place] [address] Performed By: #### 5 7021-8 ####[facility]CLIA [id number] [place] [address] Lymphocytes (Bld) [#/Vol] 3.17 10*3/uL Normal 1.00-4.00 [facility] Comment on above: Order Comment: Speci men Type: BLOOD SPECIMENOrdering Facility: [facility] Address: [address] [place] [address] Performed By: #### 5 7021-8 ####[facility]CLIA [id number] [place] [address] Lymphocytes/100 WBC (Bld) 42.9 % Normal [facility] Comment on above: Order Comment: Speci men Type: BLOOD SPECIMENOrdering Facility: [facility] Address: [address] [place] [address] Performed By: #### 5 7021-8 ####[facility]CLIA [id number] [place] [address] MCH (RBC) [Entitic mass] 29.6 pg Normal 26.0-34.0 [facility] Comment on above: Order Comment: Speci men Type: BLOOD SPECIMENOrdering Facility: [facility] Address: [address] [place] [address] Performed By: #### 5 7021-8 ####[facility]CLIA [id number] [place] [address] MCHC (RBC) [Mass/Vol] 33.8 g/dL Normal 30.5-36.0 [facility] Comment on above: Order Comment: Speci men Type: BLOOD SPECIMENOrdering Facility: [facility] Address: [address] [place] [address] Performed By: #### 5 7021-8 ####[facility]CLIA [id number] [place] [address] MCV (RBC) [Entitic vol] 87.6 fL Normal 80.0-100.0 [facility] Comment on above: Order Comment: Speci men Type: BLOOD SPECIMENOrdering Facility: [facility] Address: [address] [place] [address] Performed By: #### 5 7021-8 ####[facility]CLIA [id number] [place] [address] Monocytes (Bld) [#/Vol] 0.70 10*3/uL Normal <0.87 [facility] Comment on above: Order Comment: Speci men Type: BLOOD SPECIMENOrdering Facility: [facility] Address: [address] [place] [address] Performed By: #### 5 7021-8 ####[facility]CLIA [id number] [place] [address] Monocytes/100 WBC (Bld) 9.5 % Normal [facility] Comment on above: Order Comment: Speci men Type: BLOOD SPECIMENOrdering Facility: [facility] Address: [address] [place] [address] Performed By: #### 5 7021-8 ####[facility]CLIA [id number] [place] [address] Neutrophils (Bld) [#/Vol] 3.16 10*3/uL Normal 1.45-7.50 [facility] Comment on above: Order Comment: Speci men Type: BLOOD SPECIMENOrdering Facility: [facility] Address: [address] [place] [address] Performed By: #### 5 7021-8 ####[facility]IA [id number] [place] [address] Neutrophils/100 WBC (Bld) 42.7 % Normal [facility] Comment on above: Order Comment: Speci men Type: BLOOD SPECIMENOrdering Facility: [facility] Address: [address] [place] [address] Performed By: #### 5 7021-8 ####[facility]CLIA [id number] [place] [address] Nucleated RBC (Bld) [#/Vol] 10*3/uL Normal <0.01 [facility] Comment on above: Order Comment: Speci men Type: BLOOD SPECIMENOrdering Facility: [facility] Address: [address] [place] [address] Performed By: #### 5 7021-8 ####[facility]CLIA [id number] [place] [address] Nucleated RBC/100 WBC (Bld) [Ratio] 0.0 /100 WBC Normal [facility] Comment on above: Order Comment: Speci men Type: BLOOD SPECIMENOrdering Facility: [facility] Address: [address] [place] [address] Performed By: #### 5 7021-8 ####[facility]CLIA [id number] [place] [address] Platelet mean volume (Bld) [Entitic vol] 10.4 fL Normal 9.0-12.7 [facility] Comment on above: Order Comment: Speci men Type: BLOOD SPECIMENOrdering Facility: [facility] Address: [address] [place] [address] Performed By: #### 5 7021-8 ####[facility]CLIA [id number] [place] [address] Platelets (Bld) [#/Vol] 187 10*3/uL Normal 150-400 [facility] Comment on above: Order Comment: Speci men Type: BLOOD SPECIMENOrdering Facility: [facility] Address: [address] [place] [address] Performed By: #### 5 7021-8 ####[facility]CLIA [id number] [place] [address] RBC (Bld) [#/Vol] 4.53 10*6/uL Normal 4.20-6.00 [facility] Comment on above: Order Comment: Speci men Type: BLOOD SPECIMENOrdering Facility: [facility] Address: [address] [place] [address] Performed By: #### 5 7021-8 ####[facility]CLIA [id number] [place] [address] WBC (Bld) [#/Vol] 7.39 10*3/uL Normal 3.70-11.00 [facility] Comment on above: Order Comment: Speci men Type: BLOOD SPECIMENOrdering Facility: [facility] Address: [address] [place] [address] Performed By: #### 5 7021-8 ####[facility]CLIA [id number] [place] [address] Calcium.ionized [Moles/Vol]o n 04-08-2023 Calcium.ionized (Bld) [Mass/Vol] 1.08 mmol/L Normal 1.08-1.30 [facility] Comment on above: Order Comment: Speci men Type: BLOOD SPECIMEN [facility] Address: [address] [place] [address] Performed By: #### 1 995-0 #### [facility] CLIA [id number] [address] [place] [address] [place] Calcium.ionized adjusted to pH 7.4 (Bld) [Moles/Vol] 1.08 mmol/L Normal 1.08-1.30 [facility] Comment on above: Order Comment: Speci men Type: BLOOD SPECIMEN [facility] Address: [address] [place] [address] Performed By: #### 1 995-0 #### [facility] CLIA [id number] [address] [facility] [address] [address] [place] Comprehensive metabolic 2000 panelon 04-08-2023 Albumin [Mass/Vol] 4.7 g/dL Normal 3.9-4.9 [facility] Comment on above: Order Comment: Speci men Type: BLOOD SPECIMENOrdering Facility: [facility] Address: [address] [place] [address] Performed By: #### 3 084-1, 2777-1, 2532-0, 88627-2 ####[facility] LABCLIA [id number] [place] [address] ALP [Catalytic activity/Vol] 72 U/L Normal 38-113 [facility] Comment on above: Order Comment: Speci men Type: BLOOD SPECIMENOrdering Facility: [facility] Address: [address] [place] [address] Performed By: #### 3 084-1, 2777-1, 2532-0, 29870-0 ####[facility] LABIA [id number] [place] [address] ALT [Catalytic activity/Vol] 36 U/L Normal 10-54 [facility] Comment on above: Order Comment: Speci men Type: BLOOD SPECIMENOrdering Facility: [facility] Address: [address] [place] [id number] Performed By: #### 3 084-1, 2777-1, 2532-0, 80133-7 ####[facility] LABIA [id number] [place] [address] Anion gap [Moles/Vol] 13 mmol/L Normal 9-18 [facility] Comment on above: Order Comment: Speci men Type: BLOOD SPECIMENOrdering Facility: [facility] Address: [address] [place] [address] Performed By: #### 3 084-1, 2777-1, 2532-0, 73655-3 ####[facility] [id number] [place] [address] AST [Catalytic activity/Vol] 32 U/L Normal 14-40 [facility] Comment on above: Order Comment: Speci men Type: BLOOD SPECIMENOrdering Facility: [facility] Address: [address] [place] [address] Performed By: #### 3 084-1, 2777-1, 0, ####[facility] [id number] [place] [address] Bilirubin [Mass/Vol] 0.7 mg/dL Normal 0.2-1.3 [facility] Comment on above: Order Comment: Speci men Type: BLOOD SPECIMENOrdering Facility: [facility] Address: [address] [place] [address] Performed By: #### 3 084-1, 2777-1, 0, ####[facility]CLIA [id number] [place] [address] Calcium [Mass/Vol] 8.7 mg/dL Normal 8.5-10.2 [facility] Comment on above: Order Comment: Speci men Type: BLOOD SPECIMENOrdering Facility: [facility] Address: [address] [place] [address] Performed By: #### 3 084-1, 27771, 0, ####[facility] [id number] [place] [address] Chloride [Moles/Vol] 105 mmol/L Normal 97-105 [facility] Comment on above: Order Comment: Speci men Type: BLOOD SPECIMENOrdering Facility: [facility] Address: [address] [place], [place] [address] Performed By: #### 3 084-1, 277-1, 0, ####[facility] LABCLIA [id number] [place] [address] CO2 [Moles/Vol] 27 mmol/L Normal 22-30 [facility] Comment on above: Order Comment: Speci men Type: BLOOD SPECIMENOrdering Facility: [facility] Address: [address] [place] [address] Performed By: #### 3 084-1, 2777-1, 2531-0, ####[facility] LABCLIA [id number] [place] [address] Creatinine [Mass/Vol] 1.11 mg/dL Normal 0.73-1.22 [facility] Comment on above: Order Comment: Speci men Type: BLOOD SPECIMENOrdering Facility: [facility] Address: [address] [place] [address] Performed By: #### 3 084-1, 2777-1, 0, ####[facility] LABCLIA [id number] [place] [address] Creatinine and Glomerular filtration rate.predicted panel (S/P/Bld) 71 mL/min/1.73m??? Normal >=60 [facility] Comment on above: Order Comment: Speci men Type: BLOOD SPECIMENOrdering Facility: [facility] Address: [address] [place] [address] Result Comment: Comfort mated Glomerular Filtration Rate [...] accurately reflect actual GFR. Performed By: #### 3 084-1, 2777-1, 2531-0, 90597-7 ####[facility] LABCLIA [id number] [place] [address] Glucose [Mass/Vol] 123 mg/dL High 74-99 [facility] Comment on above: Order Comment: Speci men Type: BLOOD SPECIMENOrdering Facility: [facility] Address: [address] [place] [address] Result Comment: The [place] Diabetes Association (ADA) provides guidance for cutoff [...] Standards of Medical Care in Diabetes 2016, [place] [employer]. Diabetes Care. 2016.39(Suppl 1). Performed By: #### 3 084-1, 2777-1, 2532-0, 61833-1 ####[facility] LABCLIA [id number] [place] [address] Potassium [Moles/Vol] 4.4 mmol/L Normal 3.7-5.1 [facility] Comment on above: Order Comment: Zeeshan yuan Type: BLOOD SPECIMENOrdering Facility: [facility] Address: [address] [place] [address] Performed By: #### 3 084-1, 2777-1, 2532-0, 97879-6 ####[facility] LABIA [id number] [place] [address] Protein [Mass/Vol] 8.0 g/dL Normal 6.3-8.0 [facility] Comment on above: Order Comment: Zani yuan Type: BLOOD SPECIMENOrdering Facility: [facility] Address: [address] [place] [address] Performed By: #### 3 084-1, 2777-1, 2532-0, 37765-7 ####[facility] LABCLIA [id number] [place] [address] Sodium [Moles/Vol] 145 mmol/L High 136-144 [facility] Comment on above: Order Comment: Speci men Type: BLOOD SPECIMENOrdering Facility: [facility] Address: [address] [place] [address] Performed By: #### 3 084-1, 2777-1, 2532-0, 84610-8 ####[facility] LABCLIA [id number] [place] [address] Urea nitrogen [Mass/Vol] 17 mg/dL Normal 9-24 [facility] Comment on above: Order Comment: Speci men Type: BLOOD SPECIMENOrdering Facility: [facility] Address: [address] [place] [address] Performed By: #### 3 084-1, 2777-1, 2532-0, 63186-7 ####[facility] LABCLIA [id number] [place] [address] IMMUNOFIXATION SCREEN, SERUM on 04-08-2023 INTERPRETATION (MPA) Atypical restricted bands are present in the IgG and kappa regions. Consistent with IgG kappa monoclonal gammopathy. Normal [facility] Comment on above: Order Comment: Speci men Type: BLOOD SPECIMEN [facility] Address: [address] [place] [address] Performed By: #### I FES #### [facility] CLIA [id number] [address] [place] [address] [place] MPA RESULT M protein is present. Abnormal No M p rotein is identified. [facility] Comment on above: Order Comment: Speci men Type: BLOOD SPECIMEN [facility] Address: [address] [place] [address] Performed By: #### I FESC #### [facility] CLIA [id number] [address] [place] [id number] [place] STAFF REVIEW (MPA) Reviewed by Ekta Maradiaga MD Normal [facility] Comment on above: Order Comment: Speci men Type: BLOOD SPECIMEN [facility] Address: [address] [place] [address] Performed By: #### I FESC #### [facility] CLIA [id number] [address] [place] [address] [place] IMMUNOGLOBULINS GAMon 2023 IgA [Mass/Vol] 271 mg/dL Normal 70-400 [facility] Comment on above: Order Comment: Speci men Type: BLOOD SPECIMEN [facility] Address: [address] [place] [address] Performed By: #### S ERIMM #### [facility] CLIA [id number] [address] [place] [address] [place] IgG [Mass/Vol] 1160 mg/dL Normal 700-1600 [facility] Comment on above: Order Comment: Speci men Type: BLOOD SPECIMEN [facility] Address: [address] [place] [address] Performed By: #### S ERIMM #### [facility] CLIA [id number] [address] [place] [address] [place] IgM [Mass/Vol] 45 mg/dL Normal 40-230 [facility] Comment on above: Order Comment: Speci men Type: BLOOD SPECIMEN [facility] Address: [address] [place] [address] Performed By: #### S ERIMM #### [facility] CLIA [id number] [address] [place] [address] [place] KAPPA/SERRATO,FREE,SERon 2023 Immunoglobulin light chains.kappa.free (S) [Mass/Vol] 47.6 mg/L High 3.3-19.4 [facility] Comment on above: Order Comment: Speci men Type: BLOOD SPECIMEN [facility] Address: [address] [place] [address] Result Comment: Rare ly, increased serum free light chains levels may not be detected or accurately quantified due to prozone phenomenon or in high viscosity samples using this immunoturbidimetric assay. Correlation with other laboratory results and clinical findings is recommended. The [place] Free Light Chain was performed using the Binding Site Optilite immunoturbidimetric method. Result obtained with different assay methods or kits cannot be used interchangeably. Performed By: #### K LFRS #### [facility] CLIA [id number] [address] [place] [address] [place] Immunoglobulin light chains.kappa/Immunog lobulin light chains.lambda (S) [Mass ratio] 3.19 High 0.26-1.65 [facility] Comment on above: Order Comment: Speci men Type: BLOOD SPECIMEN [facility] Address: [address] [place] [address] Performed By: #### K LFRS #### [facility] CLIA [id number] [address] [place] [address] [place] Immunoglobulin light chains.lambda.free [Mass/Vol] 14.9 mg/L Normal 5.7-26.3 [facility] Comment on above: Order Comment: Speci men Type: BLOOD SPECIMEN [facility] Address: [address] [place] [address] Result Comment: Rare ly, increased serum free [...] cannot be used interchangeably. Performed By: #### K LFRS #### [facility] CLIA [id number] [address] [place] [address] [place] LDH SerPl-cCncon 04-08-2023 LDH [Catalytic activity/Vol] 286 U/L High 135-225 [facility] Comment on above: Order Comment: Speci men Type: BLOOD SPECIMEN [facility] Address: [address] [place] [address] Result Comment: Hemo lysis present. The origin of the hemolysis, in vitro versus an in vivo hemolytic process, cannot be distinguished via this assay alone. In vitro hemolysis may lead to non-physiological (spurious) elevation in lactate dehydrogenase (LDH) results. The result should be interpreted in context of the clinical setting and other test results. Suggest reorder as clinically indicated. Performed By: #### 3 084-1, 2777-1, 2532-0, 23546-0 #### [facility] CLIA [id number] [address] [place] [address] PROTEIN ELECTROPHORESIS SERU M (P)on 04-08-2023 Albumin [Mass/Vol] 4.50 g/dL Normal 3.43-5.41 [facility] Comment on above: Order Comment: Zeeshan bolden Type: BLOOD SPECIMEN [facility] Address: [address] [place] [address] Performed By: #### L [id number] #### [facility] CLIA [id number] [address] [place] [address] [place] Alpha 1 globulin Elph [Mass/Vol] 0.27 g/dL Normal 0.18-0.43 [facility] Comment on above: Order Comment: Zeeshan bolden Type: BLOOD SPECIMEN [facility] Address: [address] [place] [address] Performed By: #### L [id number] #### [facility] CLIA [id number] [address] [place] [address] [place] Alpha 2 globulin Elph [Mass/Vol] 0.89 g/dL Normal 0.42-0.98 [facility] Comment on above: Order Comment: Zeeshan bolden Type: BLOOD SPECIMEN [facility] Address: [address] [place] [address] Performed By: #### L [id number] #### [facility] CLIA [id number] [address] [place] [address] [place] Beta globulin Elph [Mass/Vol] 0.91 g/dL Normal 0.61-1.17 [facility] Comment on above: Order Comment: Speci men Type: BLOOD SPECIMEN [facility] Address: [address] [place] [address] Performed By: #### L [id number] #### [facility] CLIA [id number] [facility] [place] [address] [place] Gamma globulin Elph [Mass/Vol] 1.03 g/dL Normal 0.53-1.51 [facility] Comment on above: Order Comment: Speci men Type: BLOOD SPECIMEN [facility] Address: [address] [place] [address] Performed By: #### L [id number] #### [facility] CLIA [id number] [address] [place] [address] [place] INTERPRETATION COMMENT FOR PROTEIN ELECTROPHORESIS Normal [facility] Comment on above: Order Comment: Speci men Type: BLOOD SPECIMEN [facility] Address: [address] [place] [address] Result Comment: See separate immunofixation report for characterization of monoclonal gammopathy. M protein is present on the background of a polyclonal immunoglobulin population. Quantitation of the M protein may overestimate the amount of M protein present. Performed By: #### L [id number] #### [facility] CLIA [id number] [address] [place] [address] [place] M-PROTEIN LOCATION Gamma Fraction 1 Normal [facility] Comment on above: Order Comment: Speci men Type: BLOOD SPECIMEN [facility] Address: [address] [place] [address] Performed By: #### L [id number] #### [facility] CLIA [id number] [address] [place] [address] [place] Protein Fractions [Interp] An M protein is identified on protein electrophoresis. Abnormal No definitive M protein is identified on protein electrophoresi s. [facility] Comment on above: Order Comment: Speci men Type: BLOOD SPECIMEN [facility] Address: [address] [place] [address] Performed By: #### L [id number] #### [facility] CLIA [id number] [address] [place] [address] [place] Protein.monoclonal Elph [Mass/Vol] 0.44 g/dL High <=0.00 [facility] Comment on above: Order Comment: Speci men Type: BLOOD SPECIMEN [facility] Address: [address] [place] [address] Performed By: #### L [id number] #### [facility] CLIA [id number] [address] [place] [address] [place] SPE STAFF REVIEW Reviewed by Ekta Maradiaga MD [facility] Comment on above: Order Comment: Speci men Type: BLOOD SPECIMEN [facility] Address: [address] [place] [address] Performed By: #### L [id number] #### [facility] CLIA [id number] [address] [place] [address] [place] Phosphate SerPl-mCncon 04-08 Phosphate [Mass/Vol] 4.9 mg/dL High 2.7-4.8 [facility] Comment on above: Order Comment: Speci men Type: BLOOD SPECIMEN Ordering Facility: [facility] Address: [address] [place] [address] Performed By: #### 3 084-1, 2777-1, 2532-0, 03214-5 #### [facility] CLIA [id number] [address] [place] [address] Prot SerPl-mCncon 04-08-2023 Protein [Mass/Vol] 7.6 g/dL Normal 6.3-8.0 [facility] Comment on above: Order Comment: Speci men Type: BLOOD SPECIMENOrdering Facility: [facility] Address: [address] [place] [address] Performed By: #### 1 [id number], [id number] ####[facility] LABCLIA [id number] MARJAN WHITNEY [id number], [place] [address] [place] Urate SerPl-mCncon Urate [Mass/Vol] 6.6 mg/dL Normal 4.0-8.1 [facility] Comment on above: Order Comment: Speci men Type: BLOOD SPECIMEN [facility] Address: [address] [place] [address] Performed By: #### 3 [id number], [id number], 2532-0, 85703-1 #### [facility] CLIA [id number] [address] [place] [address] Vital Signs Date Time Vital Sign Value Performing Clinician Faci lity 06-27-2023 10:13-0400 Body height 170.2 cm Faviola Gonzalez MD Work Phone: [facility] 06-27-2023 10:13-0400 Body mass index (BMI) [Ratio] 32.1 kg/m2 Faviola Gonzalez MD Work Phone: [employer] 06-27-2023 10:13-0400 Body weight 92.99 kg Faviola Gonzalez MD Work Phone: [employer] 06-27-2023 10:13-0400 Diastolic blood pressure 86 mm[Hg] Faviola Gonzalez MD Work Phone: [employer] 06-27-2023 10:13-0400 Heart rate 52 /min Faviola Gonzalez MD Work Phone: [employer] 06-27-2023 10:13-0400 SaO2% (BldA) [Mass fraction] 97 % Faviola Gonzalez MD Work Phone: [employer] 06-27-2023 10:13-0400 Systolic blood pressure 138 mm[Hg] Faviola Gonzalez MD Work Phone: [employer] 04-16-2022 09:44-0500 Body height 167.6 cm Jefferson Dewitt MD Work Phone: [facility] 04-16-2022 09:44-0500 Body temperature 97.2 [degF] Jefferson Dewitt MD Work Phone: [facility] 04-16-2022 09:44-0500 Body weight 94.17 kg Jefferson Dewitt MD Work Phone: [facility] 04-16-2022 09:44-0500 Diastolic blood pressure 65 mm[Hg] Jefferson Dewitt MD Work Phone: [facility] 04-16-2022 09:44-0500 Heart rate 50 /min Jefferson Dewitt MD Work Phone: [facility] 04-16-2022 09:44-0500 Respiratory rate 16 /min Jefferson Dewitt MD Work Phone: [facility] 04-16-2022 09:44-0500 SaO2% (BldA) [Mass fraction] 94 % Jefferson Dewitt MD Work Phone: [facility] 04-16-2022 09:44-0500 Systolic blood pressure 133 mm[Hg] Jefferson Dewitt MD Work Phone: [facility] Encounters Encounter Date Encounter Type Care Provider Facility Start: 08-30-2023 End: 08-31-2023 ambulatory TARAS WRIGHT [facility] Start: 08-26-2023 End: 08-27-2023 ambulatory TARAS WRIGHT [facility] Start: 08-24-2023 End: 08-24-2023 ambulatory TARAS WRIGHT Not Available Start: 08-19-2023 End: 08-20-2023 ambulatory LIBORIO LLANOS [facility] Start: 06-27-2023 End: 06-27-2023 ambulatory FAVIOLA GONZALEZ [facility] Start: 06-27-2023 End: 06-27-2023 Office outpatient visit 15 minutes Faviola Gonzalez MD Work Phone: [facility] Comment on above: 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); Abnormal stress test Start: 06-24-2023 Telephone encounter [facility] Start: 04-15-2023 End: 04-15-2023 ambulatory JEFFERSON DEWITT Facility:[facility] Start: 04-08-2023 End: 04-08-2023 ambulatory TARAS WRIGHT Facility:[facility] Start: 08-18-2022 ambulatory TAMMY Vasquez DOYLEDENNISE Faci lity:H1 Start: 04-16-2022 End: 04-16-2022 ambulatory Jefferson Dewitt MD Work Phone: Hematology/Oncology Comment on above: 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 Dx); Idiopathic peripheral autonomic neuropathy Start: 04-16-2022 End: 04-16-2022 Patient encounter procedure Jefferson Dewitt MD Work Phone: [facility] Start: 07-19-2014 End: 07-20-2014 Ambulatory FAVIOLA NOLAN Facility:[facility] Procedures Date Procedure Procedure Detail Performing Clinician Start: 06-27-2023 Follow-up visit Follow-up FAVIOLA GONZALEZ Plan of Treatment Date Care Activity Detail Author Start: 01-18-2027 LIPID SCREEN LIPID SCREEN [facility] Start: 04-09-2025 DIABETES SCREEN DIABETES SCREEN [facility] Start: 01-01-2024 Adult BMI Screening Adult BMI Screen ing [facility] Start: 01-01-2024 Tobacco Screening Tobacco Screening [facility] Start: 06-27-2023 End: 06-27-2023 Patient encounter procedure 06/27/2023 10:30 AM EDT Office Visit [facility] [address] [place] [address] Faviola Gonzalez MD [address] [place] [facility] [place] [address] [facility] Start: 04-16-2023 End: 04-16-2023 [id number]-[id number] [Mass/volume] in Serum or Plasma B2 MICROGLOBULIN B Lab Routine MGUS (monoclonal gammopathy of unknown significance) Idiopathic peripheral autonomic neuropathy Expected: 04/16/2023 (Approximate), Expires: 04/16/2023 [facility] Work Phone: Comment on above: Expected: 04/16/2023 (Approximate), Expires: 04/16/2023 Start: 04-16-2023 End: 04-16-2023 Calcium.ionized [Moles/volume] in Blood CALCIUM IONIZED BLOOD Lab Routine MGUS (monoclonal gammopathy of unknown significance) Idiopathic peripheral autonomic neuropathy Expected: 04/16/2023 (Approximate), Expires: 04/16/2023 [facility] Work Phone: Comment on above: Expected: 04/16/2023 (Approximate), Expires: 04/16/2023 Start: 04-16-2023 End: 04-16-2023 CBC W Auto Differential panel - Blood CBC + DIFF Lab Routine MGUS (monoclonal gammopathy of unknown significance) Idiopathic peripheral autonomic neuropathy Expected: 04/16/2023 (Approximate), Expires: 04/16/2023 [facility] Work Phone: Comment on above: Expected: 04/16/2023 (Approximate), Expires: 04/16/2023 Start: 04-16-2023 End: 04-16-2023 Comprehensive metabolic 2000 panel - Serum or Plasma COMP METABOLIC PANEL Lab Routine MGUS (monoclonal gammopathy of unknown significance) Idiopathic peripheral autonomic neuropathy Expected: 04/16/2023 (Approximate), Expires: 04/16/2023 [facility] Work Phone: Comment on above: Expected: 04/16/2023 (Approximate), Expires: 04/16/2023 Start: 04-16-2023 End: 06-16-2023 KAPPA/SERRATO,FREE,SER KAPPA/SERRATO,FREE,SER Lab Routine MGUS (monoclonal gammopathy of unknown significance) Idiopathic peripheral autonomic neuropathy Expected: 04/16/2023 (Approximate), Expires: 06/16/2023 [facility] Work Phone: Comment on above: Expected: 04/16/2023 (Approximate), Expires: 06/16/2023 Start: 04-16-2023 End: 04-16-2023 Lactate dehydrogenase [Enzymatic activity/volume] in Serum or Plasma LD LACTATE DEHYDRO Lab Routine MGUS (monoclonal gammopathy of unknown significance) Idiopathic peripheral autonomic neuropathy Expected: 04/16/2023 (Approximate), Expires: 04/16/2023 [facility] Work Phone: Comment on above: Expected: 04/16/2023 (Approximate), Expires: 04/16/2023 Start: 04-16-2023 End: 04-16-2023 MONOCLONAL PROTEIN, SERUM (BLOOD) MONOCLONAL PROTEIN, SERUM (BLOOD) Lab Routine MGUS (monoclonal gammopathy of unknown significance) Idiopathic peripheral autonomic neuropathy Expected: 04/16/2023 (Approximate), Expires: 04/16/2023 [facility] Work Phone: Comment on above: Expected: 04/16/2023 (Approximate), Expires: 04/16/2023 Start: 04-16-2023 End: 04-16-2023 Phosphate [Mass/volume] in Serum or Plasma PHOSPHORUS INORGANIC Lab Routine MGUS (monoclonal gammopathy of unknown significance) Idiopathic peripheral autonomic neuropathy Expected: 04/16/2023 (Approximate), Expires: 04/16/2023 [facility] Work Phone: Comment on above: Expected: 04/16/2023 (Approximate), Expires: 04/16/2023 Start: 04-16-2023 End: 04-16-2023 PROTEIN ELECTROPHORESIS SERUM W/INTERP PROTEIN ELECTROPHORESIS SERUM W/INTERP Lab Routine MGUS (monoclonal gammopathy of unknown significance) Idiopathic peripheral autonomic neuropathy Expected: 04/16/2023 (Approximate), Expires: 04/16/2023 [facility] Work Phone: Comment on above: Expected: 04/16/2023 (Approximate), Expires: 04/16/2023 Start: 04-16-2023 End: 04-16-2023 Urate [Mass/volume] in Serum or Plasma URIC ACID BLOOD Lab Routine MGUS (monoclonal gammopathy of unknown significance) Idiopathic peripheral autonomic neuropathy Expected: 04/16/2023 (Approximate), Expires: 04/16/2023 [facility] Work Phone: Comment on above: Expected: 04/16/2023 (Approximate), Expires: 04/16/2023 Start: 12-03-2022 COVID-19 Vaccine ( season) COVID-19 Vaccine ( season) [facility] Start: 12-03-2022 Influenza vaccination Influenza Vacc ine [facility] Start: 04-04-2022 ADVANCE DIRECTIVE DISCUSSION ADVANCE DIRECTIVE DISCUSSION [facility] Start: 04-04-2022 DEPRESSION ASSESSMENT DEPRESSION ASS ESSMENT [facility] Start: 10-24-2021 DTaP,Tdap and Td Vac cines (2 - Td or Tdap) DTaP,Tdap and Td Vaccines (2 - Td or Tdap) [facility] Start: 10-24-2021 Urine microalbumin profile DTAP,TDAP,TD (2 - Td or Tdap) [facility] Start: 02-08-2021 PNEUMOCOCCAL: 65+ (2 - PPSV23 if available, else PCV20) PNEUMOCOCCAL: 65+ (2 - PPSV23 if available, else PCV20) [facility] Start: 01-20-2017 Fall Risk Screening Fall Risk Screen ing [facility] Start: 10-02-2015 Administration of varicella zoster vaccine Zoster (Shingles) Vaccine (2 of 3) [facility] Start: 10-02-2015 SHINGRIX VACCINE (2 of 3) ROMEO GRIX VACCINE (2 of 3) [facility] Start: 01-20-1997 COLOGUARD (FIT-DNA) COLOGUARD (FIT-D NA) [facility] Start: 01-20-1997 Colonoscopy COLONOSCOPY [facility] Start: 01-20-1997 COLORECTAL CANCER SCREENING COLORECTAL CANCER SCREENING [facility] Start: 01-20-[address] COLONOGRAPHY [facility] Start: 01-20-1997 FECAL OCCULT BLOOD FECAL OCCULT BLOO D [facility] Start: 01-20-1997 SIGMOIDOSCOPY SIGMOIDOSCOPY [facility] Start: 01-20-1970 Adult BMI Follow Up Plan Adult BMI F ollow Up Plan [facility] Start: 01-20-1970 Diabetic foot examination Diabetic F oot Exam [facility] Start: 01-20-1970 HEPATITIS C SCREENING HEPATITIS C SC REENING [facility] Start: 1964 Depression Screening Depression Scre ening [facility] Start: 1950 Glaucoma screening Diabetic Op hthalmology Exam [facility] Start: 1950 Medicare Annual Well ness Visit Medicare Annual Wellness Visit [facility] Immunizations Immunization Date Immunization Notes Care Provider Fa cility 12-28-2021 influenza virus vaccine, unspecified formulation Hayde [facility] 06-16-2020 COVID-19, mRNA, LNP- S, PF, 30mcg/0.3mL Dose Hayde [facility] 05-26-2020 COVID-19, mRNA, LNP- S, PF, 30mcg/0.3mL Dose Hayde [facility] 02-09-2020 influenza, high-dose , quadrivalent vaccine (FLUZONE HIGH DOSE QUADRIVALENT) Jefferson Dewitt MD Work Phone: [facility] 02-09-2020 pneumococcal conjuga te vaccine, 13 valent Jefferson Dewitt MD Work Phone: [facility] 08-07-2015 zoster vaccine, live Jefferson sanchez MD Work Phone: [facility] 08-07-2015 zoster vaccine, unspecified formulation Hayde [facility] 01-24-2015 influenza, injectabl e, quadrivalent, preservative free Jefferson Dewitt MD Work Phone: [facility] 01-25-2014 influenza, seasonal, injectable Jefferson Dewitt MD Work Phone: [facility] 01-03-2013 influenza, seasonal, injectable Jefferson Dewitt MD Work Phone: [facility] 10-25-2011 tetanus toxoid, redu kimmy diphtheria toxoid, and acellular pertussis vaccine, adsorbed Jefferson Dewitt MD Work Phone: [facility] 04-04-2011 influenza, seasonal, injectable Jefferson Dewitt MD Work Phone: [facility] 04-04-2010 influenza, seasonal, injectable Jefferson Dewitt MD Work Phone: [facility] Payers Date Payer Category Payer Medicare [id number] 2016 Unknown [id number] 1959 Medicare [id number] 1959 Unknown [id number] 1950 Unknown [id number] 1950 Unknown [id number] 1952 Unknown [id number] [id number] 1952 Unknown [id number] [id number] 1950 Unknown [id number] [id number] 1952 Unknown [id number] [id number] Unknown [id number] Social History Date Type Detail Facility Start: 06-20-2017 End: 06-25-2022 Tobacco smoking status NHIS Never smoked tobacco [facility] Start: 06-20-2017 End: 06-25-2022 Tobacco use and exposure Smokeless tobacco non-user [facility] Start: 04-16-2022 Alcohol intake Current non-dr dry cans operator of alcohol (finding) [facility] Start: 1950 Sex Assigned At Not on file C [facility] Start: 12-31-2022 End: 06-27-2023 Alcohol intake Current drinker of alcohol (finding) [facility] Start: 05-15-2020 End: 12-31-2022 Alcohol intake [facility] Start: 05-15-2020 End: 12-31-2022 Tobacco use panel [facility] Childcare Unknown [facility] Start: 05-05-2019 Alcohol Comment 2[facility] week [facility] Start: 10-22-2021 Sexual orientation Heterosexual (shar carey) [facility] Medical Equipment Procedure Code Equipment Code Equipment Origin al Text Equipment Identifier Dates Lens Iol 0 D +14 .5 D +3 Cyl Bicvx Acrsf Iq Stableforce 13mm - [id number] - [id number] Start: 01-08-2021 Lens Iol Ultrase rt 13.5d - [id number] - [id number] Start: 01-20-2021 Clinical Notes 04-16-2022 to 06-27-2023 Faviola Gonzalez MD - 06/27/2023 10:30 AM EDTTelephone Encounter - Hayde Nash CMA - 06/24/2023 9:32 AM EDTTelephone Encounter - Hayde Nash [facility] - 06/24/2023 9:32 AM EDTPatient Instructions Note Date & Type Note Facility 06-27-2023 History of Presen t illness Narrative Morris Belle Date of visit: 06/27/2023 Date of : 1950 Age: 73 y.o. 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 30 tablet 0 aspirin 81 mg Take 1 tablet (81 mg total) by mouth in the morning. 2 tablet 0 atorvastatin (LIPITOR) 40 mg tablet Take 1 tablet (40 mg total) by mouth in the morning. 90 tablet 2 gabapentin (NEURONTIN) 300 mg capsule Take 1 capsule (300 mg total) by mouth in the morning and 1 capsule (300 mg total) before bedtime. isosorbide mononitrate (IMDUR) 30 mg 24 hr tablet Take 1 tablet (30 mg total) by mouth daily. 90 tablet 3 metoprolol tartrate (LOPRESSOR) 25 mg tablet Take 1 tablet (25 mg total) by mouth in the morning and 1 tablet (25 mg total) before bedtime. 180 tablet 3 furosemide (LASIX) 40 mg tablet Take by mouth daily as needed. (Patient not taking: Reported on 06/27/2023) No current facility-administered medications for this visit. Chief Complaint Patient presents with Follow-up EST PT 6 MO FU L/S RDG ID REFERRAL SCHED W/PT History of Present Illness Patient generally doing well with no major issues no chest pain or shortness breath no lightheadedness. He is having issues trying to get his weight off but is very active and goes to the gym on a regular basis does core exercises as well as weights it has no issues with doing any of this Past Medical History: Diagnosis Date Abscess Cataract Chronic pain disorder Colon polyp 2003 Dyslipidemia Edema LE Hoarseness Hypoparathyroidism ([facility]) Joint pain Neuropathy Neuropathy estela feet Obesity PAD (peripheral artery disease) ([facility]) Peripheral polyneuropathy Tailor's bunion Visual impairment No data recorded No data recorded No data recorded Past Surgical History: Procedure Laterality Date ACHILLES TENDON REPAIR BOWEL RESECTION 2003 large colon resection Cardiac catheterization - CORS + LV GRAM/PRESS (19450) N/A 11/25/2021 Performed by Savannah Ribeiro MD at [facility] CARDIAC CATH LABS CARPAL TUNNEL RELEASE 2005 COLON SURGERY EXTRACTION CATARACT INTRAOCULAR LENS Left 01/20/2021 Performed by Lluvia Ramírez MD at [facility] EXTRACTION CATARACT INTRAOCULAR LENS Right 01/08/2021 Performed by Lluvia Ramírez MD at [facility] Family History Problem Relation Age of Onset Cancer Mother Breast cancer Mother Stroke Father Cancer Sister Social History Socioeconomic History Marital status: Spouse name: Not on file Number of children: Not on file Years of education: Not on file Highest education level: Not on file Occupational History Not on file Tobacco Use Smoking status: Never Smokeless tobacco: Never Vaping Use Vaping Use: Never used Substance and Sexual Activity Alcohol use: Yes Alcohol/week: 1.0 standard drink of alcohol Types: 1 Cans of beer per week Comment: 2-3 times per week Drug use: Never Sexual activity: Defer Other Topics Concern Caffeine Use Yes Social History Narrative Not on file Social Determinants of Health Financial Resource Strain: Not on file Food Insecurity: No Food Insecurity (06/27/2023) Hunger Screening Food Insecurity - Worry: Never True Food Insecurity - Inability: Never True Transportation Needs: Not on file Physical Activity: Not on file Stress: Not on file Social Connections: Not on file Interpersonal Safety: Not on file Housing Instability: Not on file Review of Systems Review of Systems Constitutional: Negative. HENT: Positive for hoarse voice. Eyes: Negative. Cardiovascular: Negative. Respiratory: Negative. Endocrine: Negative. Hematologic/Lymphatic: Negative. Skin: Negative. Musculoskeletal: Negative. Gastrointestinal: Negative. Genitourinary: Negative. Neurological: Positive for loss of balance and numbness. Psychiatric/Behavioral: Negative. Allergic/Immunologic: Positive for environmental allergies. Vascular: Negative. CARDIOVASCULAR: Please review HPI. Physical Examination General appearance: Alert, oriented and cooperative. In no acute distress. Skin: Warm and dry to touch. Head: Normocephalic, without obvious abnormality, atraumatic. Ears, Nose, Mouth, Throat: Throat clear without erythema or exudate. Dentition intact. Eyes: Conjunctivae unremarkable, EOM intact. Neck: No JVD, No carotid bruit. Neck supple, trachea midline. Respiratory: Clear to auscultation bilaterally, no use of accessory muscles. Cardiovascular: RRR with normal S1 and S2 with no murmurs. Gastrointestinal: Soft, non-tender. Bowel sounds normal. Musculoskeletal: No peripheral edema. Neurologic: Oriented to time, person and place, affect appropriate. No focal/major motor defects noted. Psychiatric: Appropriate mood, memory and judgement. VITAL SIGNS: BP 138/86 (BP Site: Left Arm, BP Postition: Sitting) Pulse 52 Ht 170.2 cm (5' 7.01 ) Wt 93 kg (205 lb) SpO2 97% BMI 32.10 kg/m No orders of the defined types were placed in this encounter. There are no discontinued medications. IMPRESSIONS/PLAN There are no diagnoses linked to this encounter. 1. 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 Resolved angina, has good functional capacity. 2. Normal LV function 3. 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 Hyperlipidemia 5. Hypothyroidism 6. PAD, felt mild, previously evaluated by vascular Doing well heart mcpherson very active does weights and core with no issues No changes cardiac-mcpherson follow-up in a year TODAYS ORDERS No orders of the defined types were placed in this encounter. FOLLOW UP No follow-ups on file. PCP: TARAS WRIGHT MD Referring Physician: Taras Wright MD [address] [place] [address] documented in this encounter [facility] 06-24-2023 Miscellaneous Notes Called patient to remind them to bring their most current copy of their medication list with them to their appt. Patient verbalizes understanding. documented in this encounter [facility] 06-24-2023 Telephone encounter Note Called patient to remind them to bring their most current copy of their medication list with them to their appt. Patient verbalizes understanding. [facility] 04-15-2023 Note HNO ID: [id number] Author: JEFFERSON DEWITT MD Service: ? Author Type: Physician Type: Progress Notes Filed: 04/16/2023 12:04 Note Text: NAME: Morris Belle CLINIC NO.: [id number] DATE OF SERVICE: April 15, 2023 (Bhupendra) Some elements in this clinic note that are critical to medical decision making have been carefully reviewed and included from a prior clinic note dated: April 16, 2022 (Bhupendra) Referring Provider: Taras Wright Additional Clinicians involved in Morris Belle's care: DIAGNOSIS: MGUS ASSESSMENT: 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 No signs of hypercalcemia, renal failure, anemia, bony lesions. M-protein is low at 0.44 IgG kappa and K/L ratio is slightly increased. Very unlikely his neuropathy is paraprotein related. Previously IgM was normal. Will monitor Neuropathy No change in neuropathy, no obvious cause. PLAN: 1. Labs 1 week prior to return 2. RTC 1 year HPI: CASE HISTORY: Reverse Chronological Order Updated Visit, April 15, 2023: No real change in neuropathy. Frustrated as feet and some in his hands with no explanation. Had a bout of cellulitis. Would be interested in an elimination diet but not right now. Son has hydrocephalus and needs constant care. Updated Visit, April 16, 2022: September 2021 [...] his right leg. 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 REVIEW OF SYSTEMS Per HPI and otherwise negative by full review of organ systems. ECOG PERFORMANCE STATUS: 0 PHYSICAL EXAMINATION: Vitals: BP 145/70 Pulse 53 Temp (Src) 97.3 (Temporal) Resp 16 Ht 5' 5.984 (1.68m) Wt 203 lb 14.8 oz (92.5kg) SpO2 97% BMI 32.93 kg/(m2). Body surface area is 2.08 meters squared. Exam limited to gross visualization [...] by mouth. atorvastatin (LIPITOR) 40 mg tablet furosemide (LASIX) 40 mg tablet Take by mouth. isosorbide mononitrate ER (IMDUR) 30 mg 24 hr tablet metoprolol tartrate, short acting, (LOPRESSOR) 25 mg tablet TAKE 1 TABLET BY MOUTH EVERY MORNING AND 1 EVERY NIGHT AT BEDTIME gabapentin (NEURONTIN) 300 mg capsule Take 300 mg by mouth twice daily. empagliflozin (JARDIANCE) 10 mg tablet Take 10 mg by mouth. naproxen (NAPROSYN) 250 mg tablet Take 250 mg by mouth. LABORATORY VALUES: WBC (k/uL) Date Value 04/08/2023 7.39 RBC (m/uL) Date Value 04/08/2023 4.53 Hemoglobin (g/dL) Date Value 04/08/2023 13.4 Hematocrit (%) Date Value 04/08/2023 39.7 MCV (fL) Date Value 04/08/2023 87.6 MCH (pg) Date Value 04/08/2023 29.6 MCHC (g/dL) Date Value (more content not included)... [facility] 04-16-2022 Miscellaneous Notes Addended by: JEFFERSON DEWITT on: 04/16/2022 10:30 AM Modules accepted: Orders documented in this encounter [facility] 04-16-2022 Instructions Jefferson Dewitt MD - 04/16/2022 10:24 AM EST 1. Labs 1 week prior to return 2. RTC 1 year documented in this encounter [facility] 04-16-2022 History of Presen t illness Narrative NAME: YoshiMorris CLINIC NO.: [id number] DATE OF SERVICE: April 16, 2022 (Bhupendra) [...] his right leg. 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 ([facility])- Primary Abnormal stress test Other nonspecific abnormal cardiovascular system function study [facility] this [facility] Summary Purpose Family History No Family History Records FoundNo Family History Records FoundNo Family History Records FoundNo Family History Records FoundNo Family History Records Found Advance Directives No Advanced Directives Records FoundDocuments on File Type Date Recorded Patient [employer] Expl anation Durable Power of Media Job Titles 10/02/2022 9:29 AM Advance Directive 11/25/2021 9:10 AM Durable Power of Media Job Titles 05/05/2019 2:57 PM Additional Source Comments (unrecognized sect ion and content) No Status Records FoundNo Status Records FoundNo Status Records FoundNo Status Records FoundNo Status Records Found INFORMATION SOURCE (unrecogn ized section and content) DATE CREATED AUTHOR 09/27/2017 [facility] DATE CREATED AUTHOR AUTHOR'S ORGANIZ ATION 08/16/2022 [facility] DATE CREATED AUTHOR AUTHOR'S ORGANIZ ATION 04/16/2023 [facility] DATE CREATED AUTHOR AUTHOR'S ORGANIZ ATION 08/26/2023 [facility] DATE CREATED AUTHOR AUTHOR'S ORGANIZ ATION 08/31/2023 [facility] Source Comments (unrecognize d section and content) In the event this informatio n is protected by the Federal Confidentiality of Alcohol and Drug Abuse Patient Records regulations: The Federal rules restrict any use of the information to criminally investigate or prosecute any alcohol or drug abuse patient.[facility] Care Teams (unrecognized sec tion and content) Legal Stenographer Relationship Specialty Start Date End Date Taras Wright [address] [place], [place] [id number] PCP - General Family Medicine 06/20/17 Legal Stenographer Relationship Specialty Start Date End Date Taras Wright MD [address] [place] [address] PCP - General 04/21/17 Legal Stenographer Relationship Specialty Start Date End Date Taras Wright MD [address] [place] [address] PCP - General 04/21/17 Reason for Visit (unrecogniz ed section and content) Reason Comments Follow-up EST PT 6 MO FU L/S R DG ID REFERRAL SCHED W/PT FOR RECORDS PERTAINING TO PATIENTS WHO ARE [...] BE BASED ON THE PRIMARY CLINICAL RECORDS. [facility] provides no warranty or guarantee of the accuracy or completeness of information in this document.
== END 2023-11-29 11:11 | disposition home or self-care (01) ==
PROVIDERS: PCP Family Medicine; Visit Provider Podiatrist Foot & Ankle Surgery
DX: M79.671 Pain in right foot (principal); Z98.890 Other specified postprocedural states
CPT/HCPCS: 73630

== ENCOUNTER 2024-07-31 12:56 | Outpatient (OUT) | payer MEDICARE, OTHER, SELFPAY ==
--- NOTE | 2024-07-31 13:55 | PM.WCHP ---
Wound Care H&P: HPI History of Present Illness Narrative: Patient has history of type 2 diabetes with neuropathy. He states his toenails are painful when elongated which is relieved with nail care. No denies foot pain currently. [facility] Medical History (Updated 07/31/24 @ 14:04 by AGAPITO Alexander) Cellulitis of lower extremity ?L03.119 - Cellulitis of unspecified part of limb (ICD-10) Peripheral vascular disease ?I73.9 - Peripheral vascular disease, unspecified (ICD-10) Seasonal allergies ?J30.2 - Other seasonal allergic rhinitis (ICD-10) Arthritis ?M19.90 - Unspecified osteoarthritis, unspecified site (ICD-10) COVID-19 ?U07.1 - COVID-19 (ICD-10) High cholesterol ?E78.00 - Pure hypercholesterolemia, unspecified (ICD-10) Hypertension ?I10 - Essential (primary) hypertension (ICD-10) Typical angina ?I20.9 - Angina pectoris, unspecified (ICD-10) Neuropathy ?G62.9 - Polyneuropathy, unspecified (ICD-10) Colon polyp ?K63.5 - Polyp of colon (ICD-10) Hammertoe ?M20.40 - Other hammer toe(s) (acquired), unspecified foot (ICD-10) Bunionette ?M21.629 - Bunionette of unspecified foot (ICD-10) Surgical History (Updated 02/21/23 @ 13:00 by Janey Norman NP) History of colonoscopy ?Z98.890 - Other specified postprocedural states (ICD-10) H/O colectomy (2003) ?Z90.49 - Acquired absence of other specified parts of digestive tract (ICD-10) History of ankle surgery ?Z98.890 - Other specified postprocedural states (ICD-10) History of carpal tunnel release ?Z98.890 - Other specified postprocedural states (ICD-10) S/P cataract extraction and insertion of intraocular lens ?Z98.49 - Cataract extraction status, unspecified eye (ICD-10) ?Z96.1 - Presence of intraocular lens (ICD-10) History of cardiac catheterization ?Z98.890 - Other specified postprocedural states (ICD-10) Family History (Updated 02/21/23 @ 13:00 by Janey Norman NP) Other Family history of breast cancer Family history of heart disease Family history of stroke Social History (Updated 02/21/23 @ 12:55 by Janey Norman NP) Within the past year, how often did you have a drink containing alcohol: monthly or less Smoking status: Never smoker Non-prescribed substance use: denies use Highest level of school completed/degree received: high school graduate Meds Home Medications and Allergies Home Medications ?Medication ?Instructions ?Recorded ?Confirmed ?Type acetaminophen 500 mg tablet 500 mg PO Q6H PRN pain 02/21/23 03/07/23 History atorvastatin 40 mg tablet 40 mg PO DAILY 02/21/23 03/07/23 History gabapentin 300 mg capsule 300 mg PO Q12H 02/21/23 03/07/23 History isosorbide mononitrate 30 mg 30 mg PO DAILY 02/21/23 03/07/23 History tablet,extended release 24 hr metoprolol tartrate 25 mg tablet 25 mg PO BID 02/21/23 03/07/23 History nitroglycerin 0.4 mg sublingual 0.4 mg buccal Q5M PRN chest pain 02/21/23 03/07/23 History tablet cefadroxil 500 mg capsule 500 mg PO BID 7 days #14 caps 03/07/23 Rx ondansetron 4 mg disintegrating 4 mg PO Q8H PRN nausea and 03/07/23 Rx tablet vomiting 5 days #15 tabs oxycodone-acetaminophen 5 mg-325 1 tab PO Q6H PRN pain 7 days #28 03/07/23 Rx mg tablet (Percocet) tabs sennosides 8.6 mg tablet (Senna 8.6 mg PO DAILY PRN constipation 7 03/07/23 Rx Laxative) days #7 tabs Allergies Allergy/AdvReac Type Severity Reaction Status Date / Time No Known Drug Allergies Allergy Verified 03/07/23 07:54 Exam Narrative: Exam Narrative: Derm: cluster of keratotic lesions beneath the 3rd metatarsal head on the left. Skin is intact at base. No open lesions. Toenails 1-10 are elongated, thickened, and dystrophic. Skin of both feet is diffusely dry. Neuro: protective sensation absent to monofilament testing in 5/5 areas tested on each foot. Vibratory sensation present but decreased. Achilles DTRs 1+ bilaterally Vasc: DP pulses 2/4 bilaterally, PT pulses nonpalpable bilaterally. Brisk cap refill. Digital hair absent bilaterally. Superficial varicosities present bilateral lower legs. MSK: Tailor's bunion deformity noted on the right. Contractures of the lesser toes bilaterally. Assessment and Plan Assessment and Plan (1) Tinea unguium: (2) Diminished pulses in lower extremity: (3) Type 2 diabetes mellitus with diabetic neuropathy, unspecified: Plan Nails debrided without incident, follow up in 3 months. Acute Procedures Podiatry Nail Debridement Class B Findings Absent posterior tibial pulse: bilateral Advanced trophic changes as evidenced by any three of the following: decreased hair growth, nail changes (thickening) and skin texture (thin or shiny) Class C Findings Claudication: No Temperature changes: No Edema: No Nail debridement paresthesia (abnormal spontaneous sensations in the feet): No Burning: No Qualifies If: Qualifiers If:: A patient qualifies for nail debridement if they have: 1 class A finding (Q7) 2 class B findings (Q8) OR 1 class B & 2 class C findings in addition to a primary condition (Q9) Nail Procedure Nail Procedure Time out: Yes Nail procedure: other (sharp nail debridement) Number of affected nails: 10 Location (toes): left, right, first digit, second digit, third digit, fourth digit and fifth digit Procedure successful: Yes Patient tolerated procedure: well and no complications Additional comments: Nails 1-10 were sharply debrided with nail nippers without incident
== END 2024-07-31 12:57 | disposition home or self-care (01) ==
LOC: WC 12:57
PROVIDERS: PCP Family Medicine; Visit Provider Physician Assistant
DX: B35.1 Tinea unguium (principal); R09.89 Other specified symptoms and signs involving the circulatory and respiratory systems; E11.40 Type 2 diabetes mellitus with diabetic neuropathy, unspecified
CPT/HCPCS: 11721

== ENCOUNTER 2024-10-11 14:05 | Outpatient (OUT) | payer MEDICARE, OTHER, SELFPAY ==
--- OUTSIDE RECORDS SUMMARY | 2023-11-29 07:00 | XMS_ITS ---
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 Name Role Phone None, Unknown or Primary Care Provider Unavailab Red Fitzgerald Unavailable [phone] Allergies No Known Allergies REASON FOR VISIT rt foot on and off pain Medications Medication SIG (Take, Route, Frequency, Duration) Notes Start Date End Date Status Isosorbide Mononitrate ER 30 MG Oral for 90 Days Active Nitroglycerin 0.4 MG Sublingual for 15 Days Active Metoprolol Tartrate 25 MG Oral for 90 Days Active Atorvastatin Calcium 40 MG Oral for 90 Days Active Gabapentin 300 MG Oral for 30 Days Active Social History Tobacco Use: Social History Observation Description Date Details (start date - stop date) Never Smoker NA - NA Tobacco Use/Smoking Question Answer Notes Patient is a nonsmoker Vital Signs Temperature 97.5 degrees Fahrenheit 11/29/19 24 Heart Rate 71 /min 11/29/2023 Height 67 in 11/29/2023 Oximetry 99 % 11/29/2023 Encounters Encounter Location Date Provider Diagnosis [facility] (PODIATRY) [address] [place] [address] [place] [address] 11/29/2023 Red Yanes Other specified disorders of the skin and subcutaneous tissue L98.8 ; Bunionette of right foot M21.621 ; Tinea unguium B35.1 and Right foot pain M79.671 Assessments Encounter Date Diagnosis (ICD Code) Assessment Notes Treatment Notes Treatment Clinical Notes Section Notes 11/29/2023 Other specified disorders of the skin and subcutaneous tissue (ICD-10 - L98.8) Patient seen and evaluated. Patient education provided. Patient's primary issue is a painful callus near his surgical site which is consistent with a porokeratosis. This was trimmed without incident to patient's satisfaction. I recommended urea or other moisturizer and use of a pumice stone daily. He may follow-up as needed to have this trimmed. 11/29/2023 Bunionette of right foot (ICD-10 - M21.621) Patient is greater than 6 months status post tailor's bunionectomy and is very happy with the progress although the skin lesion has recurred. I have no limitations for him from a foot perspective. 11/29/2023 Tinea unguium (ICD-10 - B35.1) Nails 1 through 10 were sharply debrided and contoured with a Dremel without incident into patient's satisfaction. Patient may follow-up every 3 months for routine nail care 11/29/2023 Right foot pain (ICD-10 - M79.671) Plan Of Treatment Treatment Notes Assessment Notes Other specified disorders of the skin and subcutaneous tissue Patient seen and evaluated. Patient education provided. Patient's primary issue is a painful callus near his surgical site which is consistent with a porokeratosis. This was trimmed without incident to patient's satisfaction. I recommended urea or other moisturizer and use of a pumice stone daily. He may follow-up as needed to have this trimmed. Bunionette of right foot Patient is grea ter than 6 months status post tailor's bunionectomy and is very happy with the progress although the skin lesion has recurred. I have no limitations for him from a foot perspective. Tinea unguium Nails 1 through 10 w ere sharply debrided and contoured with a Dremel without incident into patient's satisfaction. Patient may follow-up every 3 months for routine nail care Pending Test Test Name Order Date XR Foot RT (3 views) * 11/29/2023 Progress Notes * Morris FLOYD ADOB: [birth year] (73 yo M)Acc No.[id number]:11/29/2023 Follow Up Patient: Morris HENRY Provider: Stone Yanes DPM, MS :1950 A ge:73 Y S ex:Male Date:11/29/2023 Address:[address] [place], [place] [address], [id number] Pcp:Unknown or None Check In:10:59 AM ESTCheck O ut:12:09 PM EST Subjective: * Chief Complaints: * R t foot on and off pain * HPI: G eneral: Patient returns to office today for post op follow up s/p right foot arthroplasty of digits 2,3,4 & 5 with tailor's bunionectomy DOS: 03.07.2023. He is wearing normal shoe gear. States he has had a return of pain over the past 3 months. He is more active and pain does increase with activity. * ROS: G eneral/Constitutional: Chills d enies. F ever d enies. W eight gain�denies. W eight loss d enies. S kin: Skin Ulcers d enies. S kin lesion(s) d enies. � C ardiovascular: Difficulty breathing on exertion d enies. L eg cramps�denies. E memo d enies. C hest pain d enies. R espiratory: Difficulty breathing d enies. D yspnea d enies.�Cough d enies. G astrointestinal: Diarrhea d enies. N ausea d enies. V omiting�denies. M usculoskeletal: Bone/Joint Symptoms d enies. C bisi Pain d enies.�Leg cramps d enies. N eurologic: Numbness d enies. T ingling d enies . G ait abnormality d enies. � H ematology: Anemia D enies. E asy bruising d enies. � A ll Other Systems: Review of Systems (ROS) S ee HPI for details,All others negative except those mentioned in HPI. 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 Modified On:02/02/2023/U Status:confirmed 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 M other: , breast cancer, diagnosed with Other malignant neoplasm of unspecified site. B rother(s): diagnosed with Unspecified heart disease. S ister(s): diagnosed with Other malignant neoplasm of unspecified site. M aternal Grandmother: diagnosed with Other malignant neoplasm of unspecified site. father - cardiovascular disease. * Social History: T obacco Use: T obacco Use/Smoking P atient is a n onsmoker * Medications: T akingAtorvastatin Calcium 40 MG Tablet Oral Gabapentin 300 MG Capsule Oral Isosorbide Mononitrate ER 30 MG Tablet Extended Release 24 Hour Oral Metoprolol Tartrate 25 MG Tablet Oral Nitroglycerin 0.4 MG Tablet Sublingual Sublingual Taking Atorvastatin Calcium 40 MG Tablet Oral Taking Gabapentin 300 MG Capsule Oral Taking Isosorbide Mononitrate ER 30 MG Tablet Extended Release 24 Hour Oral Taking Metoprolol Tartrate 25 MG Tablet Oral Taking Nitroglycerin 0.4 MG Tablet Sublingual Sublingual DiscontinuedoxyCODONE-Acetaminophen 5-325 MG Tablet 1 tablet as needed Orally every 6 hrs Medication List reviewed and reconciled with the patientDiscontinued oxyCODONE-Acetaminophen 5-325 MG Tablet 1 tablet as needed Orally every 6 hrs Medication List reviewed and reconciled with the patient * Allergies: N .K.D.A.no[Allergies Verified] Objective: * Vitals: H t: 67 in, Temp:97.5F, HR:71/min, Pain scale:31-10, Oxygen sat %:99%, Ht-cm: 170.18 cm. * Examination: P odiatry Examination: SKIN: s kin intact, n o sign of infection. Skin is thin and atrophic Painful punctate hyperkeratotic lesion plantar lateral aspect of fifth metatarsal head. Findings are consistent with porokeratosis. Nails 1 through 10 are mycotic dystrophic and painful.. MUSCULOSKELETAL: M ild residual tailor's bunion with mild swelling, S trength equal & symmetric. NEUROLOGICAL: l ight touch sensation intact, n egative tinel's sign. VASCULAR: P edal pulses palpable, C apillary refill is brisk to toe, absent digital hair. Assessment: * Assessment: 1. B unionette of right foot - M21.621 (Primary) 2 . O ther specified disorders of the skin and subcutaneous tissue - L98.8 3 . T inea unguium - B35.1 4 . R ight foot pain - M79.671 Plan: * Treatment: 2. O ther specified disorders of the skin and subcutaneous tissue Notes: Patient seen and evaluated. Patient education provided. Patient's primary issue is a painful callus near his surgical site which is consistent with a porokeratosis. This was trimmed without incident to patient's satisfaction. I recommended urea or other moisturizer and use of a pumice stone daily. He may follow-up as needed to have this trimmed. 3. T inea unguium Notes: Nails 1 through 10 were sharply debrided and contoured with a Dremel without incident into patient's satisfaction. Patient may follow-up every 3 months for routine nail care 4. R ight foot pain I maging: XR Foot RT (3 views) * * Procedure Codes: 1 1721 DEBRIDE.NAILS;SIX OR MORE * * Sign off status: Completed Visit Status: C HK (Check Out) true * Provider: Stone Yanes DPM, MS Date: 0 11/29/2023 Generated for John nguyen/Mickey/eTransmitting on: 0 10/11/2024 02:08 PM EDT History and Physical Notes * Examination Category Sub-Category Detail Notes Category Not es Podiatry Examination SKIN: skin intact , no sign of infection. Skin is thin and atrophic Painful punctate hyperkeratotic lesion plantar lateral aspect of fifth metatarsal head. Findings are consistent with porokeratosis. Nails 1 through 10 are mycotic dystrophic and painful. MUSCULOSKELETAL: Mild residual tailor 's bunion with mild swelling, Strength equal & symmetric NEUROLOGICAL: light touch sensatio n intact, negative tinel's sign VASCULAR: Pedal pulses palpabl e, Capillary refill is brisk to toe, absent digital hair
--- OUTSIDE RECORDS SUMMARY | 2024-04-26 10:00 | XMS_ITS ---
Author Organization [facility] in [place] Address [address] [place] [address] Care Team Providers Care Wood Patternmaker Apprentice Name Role Phone None, Unknown or Primary Care Provider Unavailab mony Tammi Wilkinson Unavailable [phone] Allergies No Known Allergies REASON FOR VISIT rt foot second toenail perm removal Medications Medication SIG (Take, Route, Frequency, Duration) Notes Start Date End Date Status Nitroglycerin 0.4 MG Sublingual for 15 Days Active Metoprolol Tartrate 25 MG Oral for 90 Days Active Isosorbide Mononitrate ER 30 MG Oral for 90 Days Active Gabapentin 300 MG Oral for 30 Days Active Atorvastatin Calcium 40 MG Oral for 90 Days Active Social History Tobacco Use: Social History Observation Description Date Details (start date - stop date) Never Smoker NA - NA Tobacco Use/Smoking Question Answer Notes Patient is a nonsmoker Vital Signs Temperature 96.8 degrees Fahrenheit 04/26/19 25 Heart Rate 76 /min 04/26/2024 Respiratory Rate 16 /min 04/26/2024 Height 67 in 04/26/2024 Weight 203 lbs 04/26/2024 BMI 31.79 kg/m2 04/26/2024 Oximetry 96 % 04/26/2024 Encounters Encounter Location Date Provider Diagnosis [facility] (PODIATRY) [address] [place] [address] [place] [address] 04/26/2024 Tammi Wilkinson Type 2 diabetes mellitus with diabetic polyneuropathy E11.42 ; Pain in right toe(s) M79.674 and Pain in left toe(s) M79.675 Assessments Encounter Date Diagnosis (ICD Code) Assessment Notes Treatment Notes Treatment Clinical Notes Section Notes 04/26/2024 Type 2 diabetes mellitus with diabetic polyneuropathy (ICD-10 - E11.42) The patient is a 74-year-old male with history of type 2 diabetes with peripheral neuropathy who presents with concerns about his right second toenail. He states the nail is thickened and unsightly and is considering having it permanently removed. He states the nail is not typically painful, and if it is painful, it is usually relieved with trimming. I advised against permanent toenail removal unless the nail becomes persistently painful. He is in agreement. He was advised that he can use Vicks VapoRub to soften the nail and reduce repetitive microtrauma in his shoes. Follow-up every 3 months for routine nail care. 04/26/2024 Pain in right toe(s) (ICD-10 - M79.674) After verbal consent toenails 1 through 10 were sharply debrided without incident with nail nippers. The thickened nails were contoured with a Dremel tool to the patient's satisfaction. He noted pain relief immediately postprocedure. 04/26/2024 Pain in left toe(s) (ICD-10 - M79.675) Plan Of Treatment Treatment Notes Assessment Notes Type 2 diabetes mellitus wit h diabetic polyneuropathy The patient is a 74-year-old male with history of type 2 diabetes with peripheral neuropathy who presents with concerns about his right second toenail. He states the nail is thickened and unsightly and is considering having it permanently removed. He states the nail is not typically painful, and if it is painful, it is usually relieved with trimming. I advised against permanent toenail removal unless the nail becomes persistently painful. He is in agreement. He was advised that he can use Vicks VapoRub to soften the nail and reduce repetitive microtrauma in his shoes. Follow-up every 3 months for routine nail care. Pain in right toe(s) After verbal consen t toenails 1 through 10 were sharply debrided without incident with nail nippers. The thickened nails were contoured with a Dremel tool to the patient's satisfaction. He noted pain relief immediately postprocedure. Next Appt Details Follow Up: 3 Months, Reason: Progress Notes * Morris FLOYD ADOB: [birth year] (74 yo M)Acc No.[id number]:04/26/2024 Follow Up Patient: Morris HENRY Provider: Guanaco Wilkinson PA-C :1950 A ge:74 Y S ex:Male Date:04/26/2024 Address:[address] [place] [address], [facility], [id number] Pcp:Unknown or None Check In:01:58 PM ESTCheck O ut:02:39 PM EST Subjective: * Chief Complaints: * R t foot second toenail perm removal * HPI: G eneral: Pt states that his 2nd toe right foot is thick an pointed and is bothering him and wants it perminately removed . Pt states is diabetic with last AIC low 7 to high 6. * ROS: G eneral/Constitutional: Chills d enies. 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 * Family History: F ather: , diagnosed [...] Oral Nitroglycerin 0.4 MG Tablet Sublingual Sublingual Medication List reviewed and reconciled with the patientTaking Atorvastatin Calcium 40 MG Tablet Oral Taking Gabapentin 300 MG Capsule Oral Taking Isosorbide Mononitrate ER 30 MG Tablet Extended Release 24 Hour Oral Taking Metoprolol Tartrate 25 MG Tablet Oral Taking Nitroglycerin 0.4 MG Tablet Sublingual Sublingual Medication List reviewed and reconciled with the patient * Allergies: N .K.D.A.no[Allergies Verified] Objective: * Vitals: W t:203lbs, Ht: 67 in, Temp:96.8F, HR:76/min, RR:16/min, BMI:31.79Index, Pain scale:01-10, Oxygen sat %:96%, Ht-cm: 170.18 cm, Wt-k.08 kg. * Examination: P odiatry Examination: SKIN: s kin intact, n o sign of infection Toenails 1 through 10 are thickened, elongated, and tender to touch. Darkening of the skin of the tips of right toe 2 and 3 and left toe 3 consistent with mechanical irritation, no open lesions noted. MUSCULOSKELETAL: N o pain on palpation, Range of motion of ankle and foot is within normal limits, Muscle strength is 5/5 in all planes Lesser toes are contracted bilaterally. NEUROLOGICAL: L ight touch sensation is subjectively decreased Protective sensation is absent. VASCULAR: P alpable pedal pulses bilaterally, No swelling, No calf pain on squeeze. Assessment: * Assessment: 1. T ype 2 diabetes mellitus with diabetic polyneuropathy - E11.42 (Primary) 2 . P ain in right toe(s) - M79.674 3 . P ain in left toe(s) - M79.675 � Plan: * Treatment: 2. P ain in right toe(s) Notes: After verbal consent toenails 1 through 10 were sharply debrided without incident with nail nippers. The thickened nails were contoured with a Dremel tool to the patient's satisfaction. He noted pain relief immediately postprocedure. * Procedure Codes: * Follow Up: 3 Months * * Sign off status: Completed Visit Status: C HK (Check Out) true * Provider: Guanaco Wilkinson PA-C Date: 04/26/2024 Generated for John nguyen/Mickey/Capoitting on: 0 10/11/2024 02:08 PM EDT History and Physical Notes * HPI (History of Present Illness) Category Sub-Category Detail Notes Category Not es General Pt states that his 2nd toe right foot is thick an pointed and is bothering him and wants it perminately removed . Pt states is diabetic with last AIC low 7 to high 6. Examination Category Sub-Category Detail Notes Category Not es Podiatry Examination SKIN: skin intact , no sign of infection Toenails 1 through 10 are thickened, elongated, and tender to touch. Darkening of the skin of the tips of right toe 2 and 3 and left toe 3 consistent with mechanical irritation, no open lesions noted MUSCULOSKELETAL: No pain on palpation , Range of motion of ankle and foot is within normal limits, Muscle strength is 5/5 in all planes Lesser toes are contracted bilaterally NEUROLOGICAL: Light touch sensatio n is subjectively decreased Protective sensation is absent VASCULAR: Palpable pedal pulse s bilaterally, No swelling, No calf pain on squeeze
--- OUTSIDE RECORDS SUMMARY | 2024-07-23 09:00 | XMS_ITS ---
Author Organization [facility] in [place] Address [address] [place] [address] Care Team Providers Care Heat Transfer Technician Name Role Phone None, Unknown or Primary Care Provider Unavailab Tammi Mendiola Unavailable [phone] REASON FOR VISIT nail care Encounters Encounter Location Date Provider Diagnosis [facility] (PODIATRY) [address] [place] [address] [place] [address] 07/23/2024 Tammi Wilkinson Plan Of Treatment No Information Progress Notes * Morris FLOYD ADOB: [birth year] (74 yo M)Acc No.[id number]:07/23/2024 UNLOCKED PROGRESS NOTE Nurse Visit Patient: Morris HENRY Provider: Guanaco Wilkinson PA-C :1950 A ge:74 Y S ex:Male Date:07/23/2024 Address:[address] [place], [place] [id number] Pcp:Unknown or None Subjective: * Chief Complaints: * 1 . Nail care. * Medical History: Objective: * Vitals: Assessment: Plan: * Treatment: * * Electronic signature of Sally Wilkinson PA-C on 10/11/2024 at 02:08 PM EDT Sign off status: Pending Visit Status: O FF CANC (OFFICE CANCEL) * Provider: Guanaco Wilkinson PA-C Date: 0 07/23/2024 Generated for Printi ng/Fajamag/eTransmitting on: 0 10/11/2024 02:08 PM EDT
--- OUTSIDE RECORDS SUMMARY | 2024-10-02 16:00 | XMS_ITS | Encounter Summary ---
Author Organization [facility] tem Address [id number] [address] [place] [address] Care Team Providers Care Robot Operator Name Role Phone Taras Tamayo MD Primary Care Provider [phone] Encounter Details Date Type Department Care Team (Late st Contact Info) Description 10/02/2024 4:00 PM EDT Support Visit [facility] - Pre Admit [address] [place] [id number] Social History Tobacco Use Types Packs/Day Years Used Date Smoking Tobacco: Never Smokeless Tobacco: Never Alcohol Use Standard Drinks/Week Comments Yes 1 (1 standard drink = 0.6 oz pur e alcohol) 2-3 times per week [facility] Utilities Answer Date Recorded In the past 12 months has e electric, gas, oil, or water company threatened to shut off services in your home? No 07/16/2024 AUDIT-C Answer Date Recorded Q1: How often do you have a drink containing alc ohol? 2-4 times a month 07/16/2024 Q2: How many drinks containi ng alcohol do you have on a typical day when you are drinking? 1 or 2 07/16/2024 Q3: How often do you have si x or more drinks on one occasion? Never 07/16/2024 PHQ-2 Answer Date Recorded Total Score 0 07/16/2024 PRAPARE - Transportation Answer Date Re corded In the past 12 months, has l ack of transportation kept you from medical appointments or from getting medications? No 07/03 In the past 12 months, has l ack of transportation kept you from meetings, work, or from getting things needed for daily living? No 07/16/2024 Housing Instability Answer Date Recorde d Are you worried or concerned that in the next two months you may not have stable housing that you own, rent or stay in as a part of a household? No 07/16/2024 Childcare Answer Date Recorded Childcare Unknown 09/12/2018 Employment Answer Date Recorded Employment Unknown 09/12/2018 Hunger Screening Answer Date Recorded Within the past 12 months we worried whether our food would run out before we got money to buy more. Never True 08/07/2024 Within the past 12 months th e food we bought just didn't last and we didn't have money to get more. Never True 08/07/2024 Purpose - Life Answer Date Recorded Purpose and direction in life Unknown Sex and Gender Information Value Date Recorded Sex Assigned at Not on file Legal Sex Male 8:40 PM EDT Gender Identity Not on file Sexual Orientation Straight 10/22/2021 3: 18 PM EDT documented as of this encounter Miscellaneous Notes * Perioperative Nursing Note - Jessica Springer RN - 10/02/2024 10:35 AM EDT Preoperative Education Checklist- General Surgery date: 10/08/24 Surgery time: 945a Arrival time: 745a 1. Bring a photo ID and your insurance card with you the day of surgery. You will check in at the main lobby of the [facility]- registration desk is straight ahead as soon as you walk in. Tell them you are here for surgery. 2. If you have a Living Will/Durable Power of Director Of Catering Sales for Health Care that is not on file here, please bring a copy the day of surgery. 3. Please shower/bathe the night before surgery with the provided soap or wipes. Do not shower the morning of surgery- you will do use wipes when you arrive here at the hospital before getting into your surgical gown. Do not shave the area of your procedure for 2 days prior to your surgery. 4. NO powder, lotion, perfume/cologne, aftershave, make-up, deodorant, or hair products after you have bathed. 5. NO nail eritrean/acrylic on at least one finger. If you are having a hand, wrist or foot surgery then all nail eritrean and artificial/acrylic nails must be removed from that hand or foot. 6. Avoid ALL Aspirin and non-steroidal anti-inflammatory drugs and certain vitamins (Ibuprofen, Advil, Aleve, Excedrin, Meloxicam, Celebrex, fish/krill oil, etc.) for 7 days prior to surgery as instructed by your surgeon and/or your prescribing doctor. Tylenol IS ALLOWED. If you are on Ticlid, Xarelto, Eliquis, Pradaxa, Plavix or Coumadin, please check with your prescribing doctor for instructions for when to stop them. 7. If you use an inhaler, continue to use it routinely. 8. Nothing to eat or drink (not even water, gum, mints, or hard candy!) AFTER midnight prior to your surgery. 9. Take only medications that you are instructed to on the morning of surgery with a TINY SIP OF WATER. 10. Choose a responsible adult that will be able to drive you home when you are discharged from your hospital stay for your surgery and can stay with you in your home for 24 hours after your procedure. You must NOT drive any vehicle or operate any machinery for 24 hours after surgery. 11. When you dress for your appointment, please wear loose fitting clothing that is appropriate to accommodate your surgical area procedure. BRING WITH YOU ANY DEVICES YOU MAY NEED: LADI hose, ice machine, sling/swath, brace or special shoe, oversized zip-up or button up shirt, CPAP machine if staying overnight. 12. Do NOT wear jewelry, watches, or any piercings or metal for surgery- leave these valuables and money at home. 13. Do NOT wear contact lenses for surgery- glasses are okay if needed. 14. The anesthesiologist will talk with you the day of surgery and will ask you to sign a Consent Form. 15. Refrain from smoking or any type of tobacco use for at least 8 hours and marijuana for 24 hoursprior to arrival for your surgery. 16. Notify your surgeon if you develop any illness before your surgery. 17. If you are staying overnight, please DO NOT BRING your home medications with you. 18. If you have any questions prior to surgery, please call the Preadmission Testing office at [phone], Mon.-Fri. 7 a.m.-3 p.m. Leave a voicemail if needed. Pre-Surgery Instructions: Medication Instructions acetaminophen (TYLENOL EXTRA STRENGTH) 500 mg tablet Continue as prescribed, DO NOT take morning ofprocedure aspirin 81 mg Per Surgeon's instructions atorvastatin (LIPITOR) 80 mg tablet Continue as prescribed, DO NOT take morning of procedure empagliflozin (JARDIANCE) 10 mg tablet tablet Stop taking 3 days prior to procedure gabapentin (NEURONTIN) 300 mg capsule Continue as prescribed, DO NOT take morning of procedure isosorbide mononitrate (IMDUR) 30 mg 24 hr tablet Continue as prescribed, take morning of procedure metoprolol succinate XL (TOPROL XL) 25 mg 24 hr tablet Continue as prescribed, take morning of procedure nitroglycerin (NITROSTAT) 0.4 MG SL tablet Not Applicable sod sulf-pot chloride-mag sulf 1.479-0.188- 0.225 gram tablet Per Surgeon's instructions documented in this encounter Plan of Treatment Upcoming Encounters Date Type Department Care Team (Late st Contact Info) Description 03/06/2025 9:00 AM EST Clinical Support [facility] [address] [place] [phone] 03/06/2025 9:30 AM EST Office Visit [facility] [address] [place] [address] Piedad Ulloa MD [address] [place], [place] [id number] Carlos Enrique See MD [address] [place] [address] documented as of this encounter Visit Diagnoses Not on filedocumented in this encounter Additional Health Concerns Assessment Noted Time PHQ-9 Depression Total Score: 0 07/17/19 25 5:19 PM EDT documented as of this encounter Care Teams Robot Operator Relationship Specialty Start Date End Date Taras Tamayo MD PCP - General Family Medicine 09/18/24 documented as of this encounter
--- OUTSIDE RECORDS SUMMARY | 2024-10-08 07:48 | XMS_ITS | Encounter Summary ---
Author Organization [employer] Address [id number] [address] [place] [address] Care Team Providers Care Antisubmarine Weapons Officer Name Role Phone Taras Tamayo MD Primary Care Provider [phone] Reason for Referral * Misc (Routine) - Authorized Specialty Diagnoses / Procedures Referred By Contac t Referred To Contact Procedures Discharge Follow-Up - Specify Details in Comments Suhail Faye DO [address] [place] [address] Phone: tel: fax: Referral ID Status Reason Start Date Expiration Date V isits Requested Visits Authorized [id number] Authorized 10/08/2024 10/08/2025 1 1 * Misc (Routine) - Authorized Specialty Diagnoses / Procedures Referred By Contac t Referred To Contact Diagnoses Screen for colon cancer Adenomatous polyp of sigmoid colon Procedures What to Expect after Endoscopy Suhail Faye DO [address] [place] [address] Phone: tel: fax: Referral ID Status Reason Start Date Expiration Date V isits Requested Visits Authorized [id number] Authorized 10/08/2024 10/08/2025 1 1 Reason for Visit * Auth/Cert Specialty Diagnoses / Procedures Referred By Contac t Referred To Contact Diagnoses Screen for colon cancer screening Procedures WA COLON CA SCRN NOT HI RSK IND WA COLONOSCOPY FLX DX W/COLLJ SPEC WHEN PFRMD COLONOSCOPY DIAGNOSTIC / SCREENING COLONOSCOPY DIAGNOSTIC / SCREENING Suhail Faye, [address] [place] [address] Phone: tel: fax: Referral ID Status Reason Start Date Expiration Date Visits Re quested Visits Authorized [id number] Encounter Details Date Type Department Care Team (Latest Contact Info) Description 10/08/2024 7:48 AM EDT - 10/08/2024 10:02 AM EDT Hospital Encounter [facility] - Surgery [address] [place] [address] Suhail Faye DO [address] [place] [address] Adenomatous polyp of sigmoid colon (Primary Dx); Screen for colon cancer Discharge Disposition: Home Social History Tobacco Use Types Packs/Day Years Used Date Smoking Tobacco: Never Smokeless Tobacco: Never Alcohol Use Standard Drinks/Week Comments Yes 1 (1 standard drink = 0.6 oz pur e alcohol) 2-3 times per week [facility] Utilities Answer Date Recorded In the past 12 months has [employer], gas, oil, or water [employer] threatened to shut off services in your [...] PM EDT documented as of this encounter Last Filed Vital Signs Vital Sign Reading Time Taken Comments Blood Pressure 145/86 10/08/2024 9:43 AM EDT Pulse 75 10/08/2024 9:43 AM EDT Temperature 36.4 C (97.6 F) 10/08/2024 9:28 AM EDT Respiratory Rate 20 10/08/2024 9:43 AM EDT Oxygen Saturation 94% 10/08/2024 9:43 AM EDT Inhaled Oxygen Concentration - - Weight 86.2 kg (190 lb) 10/08/2024 8:07 AM EDT Height 170.2 cm (5' 7 ) 10/08/2024 8:07 AM EDT Body Mass Index 29.76 10/08/2024 8:07 AM EDT documented in this encounter Discharge Instructions * Discharge Instructions* Simi Haque RN - 10/08/2024 9:30 AM EDT You may feel dizzy, sleepy, and lightheaded due to medications you received. For the next 24 hours: Activity tolerated within Physical Limits Rest at home with moderate activity as tolerated Do not drink alcohol Do not drive Do not operate complex/hazardous machinery today Do not make important decisions or sign important papers Notify physician of: Temperature over 100 degrees farenheit Redness, Warmth, Hardness around IV site Allergic Reaction (rash, hives, itching, trouble breathing or swallowing) Questions, Problems, Concerns Preop phone number [phone] ext [phone] documented in this encounter Medications at Time of Discharge acetaminophen (TYLENOL EXTRA STRENGTH) 500 mg tablet Take 1 tablet (500 mg total) by mouth every 6 (six) hours as needed for pain. 30 tablet 12/14/2022 aspirin 81 mg Take 1 tablet (81 mg total) by mouth in the morning. 2 tablet 11/18/2021 atorvastatin (LIPITOR) 80 mg tablet Take 1 tablet (80 mg total) by mouth nightly. 90 tablet 50 07/18/2024 empagliflozin (JARDIANCE) 10 mg tablet tablet Take 1 tablet (10 mg total) by mouth in the morning. 90 tablet 2 07/19/2024 gabapentin (NEURONTIN) 300 mg capsule Take 1 capsule (300 mg total) by mouth in the morning and 1 capsule (300 mg total) before bedtime. isosorbide mononitrate (IMDUR) 30 mg 24 hr tablet Take 1 tablet (30 mg total) by mouth daily for 360 days. 90 tablet 3 08/07/2024 08/02/2025 metoprolol succinate XL (TOPROL XL) 25 mg 24 hr tablet Take 1 tablet (25 mg total) by mouth in the morning. 90 tablet 2 07/19/2024 nitroglycerin (NITROSTAT) 0.4 MG SL tablet 1 under the tongue as needed for angina, may repeat q5mins for up three doses 25 tablet 11 06/27/2023 documented as of this encounter H&P Notes * Suhail Faye DO - 10/08/2024 7:55 AM EDT HISTORY AND PHYSICAL INTERVAL NOTE: Morris Belle 1950 [id number] H&P reviewed. The patient was examined and there are no changes to the H&P. Suhail Faye DO Source Note - Rosanna Capellan APRN-EMS INSTRUCTOR - 09/18/2024 2:00 PM EDT Images from the original note were not included. Chief Complaint: Colon cancer screening History of Present Illness Morris Belle is a 74 y.o. male who presents to the office for colon cancer screening. His last colonoscopy was in June 2014 at [facility]. He had a bowel resection in 2003 for a benign polyp. He denies any concerns or changes in his bowel habits. No abdominal pain, diarrhea, constipation or rectal bleeding. There is no family history of colon cancer. He had a pacemaker placed 07/17/2024 for complete heart block. Doing well from cardiac standpoint. Review of Systems Constitutional: Negative for fever and unexpected weight change. HENT: Negative for trouble swallowing. Respiratory: Negative for shortness of breath. Cardiovascular: Negative for chest pain. Gastrointestinal: Negative for abdominal pain, diarrhea, constipation and blood in stool. Genitourinary: Negative for dysuria and difficulty urinating. Musculoskeletal: Negative for gait problem. Skin: Negative for rash and wound. Neurological: Negative for dizziness, weakness and light-headedness. Hematological: Does not bruise/bleed easily. Psychiatric/Behavioral: Negative for confusion. Past Medical History: Diagnosis Date Abscess Allergic 1974 Grasses, pets Cataract Chronic pain disorder Colon polyp 2003 Dyslipidemia Edema LE Hoarseness Hypoparathyroidism Joint pain Neuropathy Neuropathy estela feet Obesity PAD (peripheral artery disease) Peripheral polyneuropathy Sinus arrhythmia 06/26/2024 Tailor's bunion Visual impairment Past Surgical History: Procedure Laterality Date ACHILLES TENDON REPAIR BOWEL RESECTION 2003 large colon resection Cardiac catheterization - CORS + LV GRAM/PRESS (63364) N/A 11/25/2021 Performed by Savannah Ribeiro MD at [facility] CARDIAC CATH LABS CARPAL TUNNEL RELEASE 2006 COLON SURGERY COLONOSCOPY 2015 EP Invasive groin temp, DC ppm w/ lbb - ABT Left 07/17/2024 Performed by Elliott Luna MD at [facility] HRC (EP) EXTRACTION CATARACT INTRAOCULAR LENS Left 01/20/2021 Performed by Lluvia Ramírez MD at [facility] EXTRACTION CATARACT INTRAOCULAR LENS Right 01/08/2021 Performed by Lluvia Ramírez MD at [facility] EYE SURGERY 01/2021 Cataracts No Known Allergies Current Outpatient Medications: acetaminophen (TYLENOL EXTRA STRENGTH) 500 mg tablet, Take 1 tablet (500 mg total) by mouth every 6(six) hours as needed for pain., Disp: 30 tablet, Rfl: 0 aspirin 81 mg, Take 1 tablet (81 mg total) by mouth in the morning., Disp: 2 tablet, Rfl: 0 atorvastatin (LIPITOR) 80 mg tablet, Take 1 tablet (80 mg total) by mouth nightly., Disp: 90 tablet, Rfl: 50 empagliflozin (JARDIANCE) 10 mg tablet tablet, Take 1 tablet (10 mg total) by mouth in the morning., Disp: 90 tablet, Rfl: 2 gabapentin (NEURONTIN) 300 mg capsule, Take 1 capsule (300 mg total) by mouth in the morning and 1 capsule (300 mg total) before bedtime., Disp: , Rfl: isosorbide mononitrate (IMDUR) 30 mg 24 hr tablet, Take 1 tablet (30 mg total) by mouth daily for 360 days., Disp: 90 tablet, Rfl: 3 metoprolol succinate XL (TOPROL XL) 25 mg 24 hr tablet, Take 1 tablet (25 mg total) by mouth in themorning., Disp: 90 tablet, Rfl: 2 nitroglycerin (NITROSTAT) 0.4 MG SL tablet, 1 under the tongue as needed for angina, may repeat q5mins for up three doses, Disp: 25 tablet, Rfl: 11 sod sulf-pot chloride-mag sulf 1.479-0.188- 0.225 gram tablet, Please see instructional sheet givenby physicians office., Disp: 24 tablet, Rfl: 0 Social History Socioeconomic History Marital status: Spouse name: Not on file Number of children: Not on file Years of education: Not on file Highest education level: Not on file Occupational History Not on file Tobacco Use Smoking status: Never Smokeless tobacco: Never Vaping Use Vaping status: Never Used Substance and Sexual Activity Alcohol use: Yes Alcohol/week: 1.0 standard drink of alcohol Comment: 2-3 times per week Drug use: Never Sexual activity: Yes Partners: Female control/protection: None Other Topics Concern Caffeine Use Yes Social History Narrative Not on file Social Drivers of Health Financial Resource Strain: Low Risk (08/18/2023) Received from [facility] Healthcare Overall Financial Resource Strain (CARDIA) Difficulty of Paying Living Expenses: Not hard at all Food Insecurity: No Food Insecurity (08/07/2024) Hunger Screening Food Insecurity - Worry: Never True Food Insecurity - Inability: Never True Transportation Needs: No Transportation Needs (07/16/2024) PRAPARE - Transportation Lack of Transportation (Medical): No Lack of Transportation (Non-Medical): No Physical Activity: Sufficiently Active (08/18/2023) Received from [facility] Exercise Vital Sign Days of Exercise per Week: 3 days Minutes of Exercise per Session: 60 min Stress: No Stress Concern Present (08/18/2023) Received from [facility] [place] [place] [facility] Occupational [facility] - Occupational Stress Questionnaire Feeling of Stress : Not at all Social Connections: Socially Integrated (08/18/2023) Received from [facility] Social Connection and Isolation Panel [NHANES] Frequency of Communication with Friends and Family: Once a week Frequency of Social Gatherings with Friends and Family: Three times a week Attends Hindu Services: More than 4 times per year Active Member of Clubs or Organizations: Yes Attends Club or Organization Meetings: More than 4 times per year Marital Status: Interpersonal Safety: Not At Risk (07/16/2024) Humiliation, Afraid, Rape, and Kick questionnaire Fear of Current or Ex-Partner: No Emotionally Abused: No Physically Abused: No Sexually Abused: No Housing Instability: Low Risk (07/16/2024) Housing Instability Housing Instability: No Family History Problem Relation Age of Onset Cancer Mother Breast cancer Mother Stroke Father Cancer Sister Breast cancer Sister Uterine cancer Maternal Grandmother Heart disease Brother Kidney disease Brother Objective Physical Exam Constitutional: General: He is not in acute distress. Appearance: Normal appearance. He is not ill-appearing. HENT: Head: Normocephalic and atraumatic. Mouth/Throat: Mouth: Mucous membranes are moist. Eyes: Pupils: Pupils are equal, round, and reactive to light. Cardiovascular: Rate and Rhythm: Normal rate. Pulmonary: Effort: Pulmonary effort is normal. No respiratory distress. Abdominal: General: There is no distension. Musculoskeletal: General: Normal range of motion. Skin: General: Skin is warm and dry. Neurological: Mental Status: He is alert and oriented to person, place, and time. Mental status is at baseline. Vital Signs: Blood pressure 133/64, height 170.2 cm (5' 7 ), weight 90.3 kg (199 lb). Respiratory Source: No data recorded Admission Weight: Weight: 90.3 kg (199 lb) Labs Lab Results Component Value Date WBC 6.7 07/18/2024 HGB 11.7 (L) 07/18/2024 HCT 33.7 (L) 07/18/2024 MCV 90 07/18/2024 PLT 136 (L) 07/18/2024 Lab Results Component Value Date GLU 136 (H) 07/25/2024 CALCIUM 8.5 07/25/2024 K 3.8 07/25/2024 CO2 28 07/25/2024 CL 99 07/25/2024 BUN 27 07/25/2024 CREATININE 1.30 07/25/2024 No results found for: AMYLASE No results found for: LIPASE Lab Results Component Value Date ALT 35 07/25/2024 AST 36 07/25/2024 ALKPHOS 61 07/25/2024 Lab Results Component Value Date INR 1.0 07/16/2024 PROTIME 11.8 07/16/2024 Assessment Morris Belle is a 74 y.o.male who presents to the office for screening colonoscopy. Plan Colonoscopy with possible biopsy and/or polypectomy. Risks, benefits, and alternatives discussed with patient. Patient verbalizes understanding and wishes to proceed. Evaluation included: Preparing to see the patient (e.g., review of tests) Obtaining and/or reviewing separately obtained history Performing a medically appropriate examination and/or evaluation Counseling and educating the patient/family/caregiver Referring and communicating with other health child care centre director Encounter for screening colonoscopy [Z12.11] [facility] WALKER [facility] [place] This note was created with the assistance of a speech recognition program. While intending to generate a timely document that accurately reflects the content of the visit, no guarantee can be provided that every grammatical or spelling mistake has been or will be identified or corrected. Thank you for your understanding. MYRNA Walker 09/18/24 [id number] MYRNA Walker 10/08/24 5096 documented in this encounter Plan of Treatment Upcoming Encounters Date Type Department Care Team (Late st Contact Info) Description 03/06/2025 9:00 AM EST Clinical Support [facility] [address] [place] [address] 03/06/2025 9:30 AM EST Office Visit [facility] [address] [place] [address] Piedad Ulloa MD [address] [place], [place] [id number] Carlos Enrique See MD [address] [place] [address] Pending Results Name Type Priority Associated Diagnoses Date /Time Surgical Pathology Pathology and Cytology Routine Screen for colon cancer 10/08/2024 9:22 AM EDT Scheduled Orders Name Type Priority Associated Diagnoses Order Schedule Surgical Pathology Pathology and Cytology Routine Screen for colon cancer Release Upon Ordering for 1 Occurrences starting 10/08/2024, 1 completed documented as of this encounter Procedures Procedure Name Priority Date/Time Associated Diagnosis Comments WA COLONOSCOPY FLX DX W/COLLJ SPEC WHEN PFRMD 10/08/2024 9:10 AM EDT Screen for colon cancer WA COLON CA SCRN NOT HI RSK IND 10/08/2024 9:10 AM EDT Screen for colon cancer COLONOSCOPY 10/08/2024 8:46 AM EDT PROVATION COLONOSCOPY Routine 10/08/2024 8:01 AM EDT documented in this encounter Results * Colonoscopy (10/08/2024 8:46 AM EDT) 10/08/2024 8:46 AM EDT Narrative PM CARDIOVASCULAR - 10/08/2024 9:28 AM EDT [facility] Patient Name: Morris Belle Procedure Date No Time: 10/08/2024 CSN : [id number] Date of : 1950 Admit Type: Outpatient Age: 74 Room: [place] [address] Gender: Male Note Status: Finalized Attending MD: Suhail Faye DO, Procedure: Colonoscopy Indications: Screening for colorectal malignant neoplasm, High risk colon cancer surveillance: Personal history of adenomatous colonic polyps Providers: Suhail Faye DO Referring MD: Suhail Faye DO Medicines: Propofol per Anesthesia Complications: No immediate complications. Procedure: After I obtained informed consent, the scope was passed under direct vision. Throughout the procedure, the patient's blood pressure, pulse, and oxygen saturations were monitored continuously. The OLYMPUS CF-190L # [id number] ADULT COLONOSCOPE was introduced through the anus and advanced to the ileocolonic anastomosis. The colonoscopy was performed without difficulty. The patient tolerated the procedure well. The quality of the bowel preparation was good. Findings: The perianal and digital rectal examinations were normal. An 8 mm polyp was found in the recto-sigmoid colon. The polyp was sessile. The polyp was removed with a hot snare. Resection and retrieval were complete. The exam was otherwise without abnormality on direct and retroflexion views. Estimated Blood Loss: Estimated blood loss: none. Impression: - One 8 mm polyp at the recto-sigmoid colon, removed with a hot snare. Resected and retrieved. - The examination was otherwise normal on direct and retroflexion views. Recommendation: - Discharge patient to home. - Patient has a contact number available for emergencies. The signs and symptoms of potential delayed complications were discussed with the patient. Return to normal activities tomorrow. Written discharge instructions were provided to the patient. - Repeat colonoscopy in 5 years for surveillance based on pathology results. - Return to my office PRN. Procedure Code(s): --- Professional --- 06557, Colonoscopy, flexible; with removal of tumor(s), polyp(s), or other lesion(s) by snare technique Diagnosis Code(s): --- Professional --- Z12.11, Encounter for screening for malignant neoplasm of colon Z86.0101, Personal history of adenomatous and serrated colon polyps D12.7, Benign neoplasm of rectosigmoid junction CPT copyright 2022 [employer]. All rights reserved. The codes documented in this report are preliminary and upon fish header review may be revised to meet current compliance requirements. DO Suhail Mazariegos DO 10/08/2024 9:28:06 AM Number of Addenda: 0 Note Initiated On: 10/08/2024 8:46 AM Procedure Note Suhail Faye DO - 10/08/2024 [facility] Patient Name: Morris Belle Procedure Date No Time: 10/08/2024 CSN : [id number] Date of : 1950 Admit Type: Outpatient Age: 74 Room: [place] [address] Gender: Male Note Status: Finalized Attending MD: Suhail Faye DO, Procedure: Colonoscopy Indications: Screening for colorectal malignant neoplasm, Highrisk colon cancer surveillance: Personal history of adenomatous colonic polyps Providers: Suhail Faye DO Referring MD: Suhail Faye DO Medicines: Propofol per Anesthesia Complications: No immediate complications. Procedure: After I obtained informed consent, the scope was passed under direct vision. Throughout theprocedure, the patient's blood pressure, pulse, and oxygen saturations were monitored continuously. TheTierPM CF-190L # [id number] ADULT COLONOSCOPE was introduced through the anus and advanced to the ileocolonic anastomosis. The colonoscopy was performed without difficulty. The patient tolerated the procedurewell. The quality of the bowel preparation was good. Findings: The perianal and digital rectal examinations were normal. An 8 mm polyp was found in the recto-sigmoid colon. The polyp was sessile. The polyp was removed with a hot snare. Resection andretrieval were complete. The exam was otherwise without abnormality on direct and retroflexion views. Estimated Blood Loss: Estimated blood loss: none. Impression: - One 8 mm polyp at the recto-sigmoid colon,removed with a hot snare. Resected and retrieved. - The examination was otherwise normal on directand retroflexion views. Recommendation: - Discharge patient to home. - Patient has a contact number available for emergencies. The signs and symptoms of potential delayed complications were discussed with thepatient. Return to normal activities tomorrow. Written discharge instructions were provided to thepatient. - Repeat colonoscopy in 5 years for surveillancebased on pathology results. - Return to my office PRN. Procedure Code(s): --- Professional --- 08182, Colonoscopy, flexible; with removal of tumor(s), polyp(s), or other lesion(s) by snare technique Diagnosis Code(s): --- Professional --- Z12.11, Encounter for screening for malignant neoplasm of colon Z86.0101, Personal history of adenomatous and serrated colon polyps D12.7, Benign neoplasm of rectosigmoid junction CPT copyright 2022 [employer]. All rights reserved. The codes documented in this report are preliminary and upon fish header reviewmay be revised to meet current compliance requirements. DO Suhail Mazariegos DO 10/08/2024 9:28:06 AM Number of Addenda: 0 Note Initiated On: 10/08/2024 8:46 AM us Suhail Faye DO GI PROCEDURE ORDERABLES Fin al Result PM CARDIOVASCULAR * Colonoscopy Report (10/08/2024 8:01 AM EDT) Narrative SYSTEMGENERATED, DOCUMENTATION - 10/08/2024 8:01 AM EDT This order has been auto-finalized for image and report archival in PACs. *For full report details, please reach out to your physician. This image is visible to you in MyChart.* us Suhail Faye DO IMG OR IMG ORDERABLES Final Result documented in this encounter Visit Diagnoses Diagnosis Adenomatous polyp of sigmoid colon- Primary Screen for colon cancer Special screening for malignant neoplasms, colon documented in this encounter Administered Medications Inactive Administered Medications - up to 3 most recent administrations Medication Order MAR Action Action Date Dose Rate Site lactated ringers infusion 100 mL/hr, intravenous, Continuous, Starting on Tue10/08/24 at 0815, For 1 day, Pre-op, If fluid restriction is not indicated, infuse at a rate up to 5 mL/kg/hr not to exceed the total replacement volume (2 ml/kg/hr) from the time NPO status was initiated. Continued by Anesthesia 10/08/2024 9:10 AM EDT 100 mL/hr New Bag 10/08/2024 8:16 AM EDT 100 mL/hr 100 mL/hr documented in this encounter Active and Recently Administered Medications Times are shown in EDT. Continuous Medication Order 10/06/2024 10/07/2024 10/08/2024 lactated ringers infusion (CANCELED) 100 mL/hr, intravenous, Continuous, Starting on Tue10/08/24 at 0815, For 1 day, Pre-op, If fluid restriction is not indicated, infuse at a rate up to 5 mL/kg/hr not to exceed the total replacement volume (2 ml/kg/hr) from the time NPO status was initiated. 0816 (New Bag - Prov ider: Regina Hernandez RN)0910 (Continued by Anesthesia - Provider: Breanna Forde APRN-QA ANALYST)0953 (Due: Order Ending - Provider: Automatic Transfer Provider - Comment: [Order ends at this time. Document the following action when infusion is complete: Stop Bag]) documented in this encounter Additional Health Concerns Assessment Noted Time PHQ-9 Depression Total Score: 0 07/17/19 25 5:19 PM EDT documented as of this encounter Care Teams Antisubmarine Weapons Officer Relationship Specialty Start Date End Date Taras Tamayo MD PCP - General Family Medicine 09/18/24 documented as of this encounter
--- OUTSIDE RECORDS SUMMARY | 2024-10-08 09:10 | XMS_ITS | Encounter Summary ---
Author Organization [facility] [employer] s tem Address [facility]-[id number] [address] [place] [address] Care Team Providers Care Field Geologist Name Role Phone Taras Tamayo MD Primary Care Provider [phone] Reason for Visit * Auth/Cert Specialty Diagnoses / Procedures Referred By Contac t Referred To Contact Diagnoses Screen for colon cancer screening Procedures NC COLON CA SCRN NOT HI RSK IND NC COLONOSCOPY FLX DX W/COLLJ SPEC WHEN PFRMD COLONOSCOPY DIAGNOSTIC / SCREENING COLONOSCOPY DIAGNOSTIC / SCREENING Suhail Faye DO [address] [place] [address] Phone: tel: fax: Referral ID Status Reason Start Date Expiration Date Visits Re quested Visits Authorized [id number] Encounter Details Date Type Department Care Team (Late st Contact Info) Description 10/08/2024 9:10 AM EDT Anesthesia Event [facility] - Surgery [address] [place] [address] Eitan Medina DO [address] [place] [address] Anesthesia Record Procedure Summary Procedure Name Responsible Anesthesiologist Anesthesia Start Time Anesthesia Stop Time COLONOSCOPY DIAGNOSTIC / SCREENING (Anus) Eitan Medina DO 10/08/24 0910 10/08/24 0924 Events Date Time Event Comment 10/08/2024 0752 0910 An Start 0910 An Start Data 0910 An Induction The patient was reevaluated immediately before moderate or deep sedation use and before anesthesia induction. 0910 Patient Ready for Surgeon 0910 Position 0922 An Data Art Laying on nibp cuff 0923 an stop data 0923 Transport/Transfer From the OR 09 Handoff to RN Transported to :Phase II, Spontaneous Ventilation, O2 per Room Air, 0 LPM Pt. Tolerated procedure well, vital signs stable and document on nursing record Care transferred to receiving RN 0924 An Stop Meds Name Total propofol (DIPRIVAN) injection 250 mg lidocaine (XYLOCAINE) injection 2% 50 mg lactated ringers infusion 0 mL * Agents No agents on file. * Blood No blood administrations on file. Lines, Drains, and Airways Type Details Placement Removal Wound 01/08/21; 0910; Inci abdelrahman; Eye; Right; clear shield taped over operative eye post-op 01/08/21 0910 by Lanie Vazquez RN Wound 01/20/21; 1113; Inci abdelrahman; Eye; Left; clear plastic eye shield 01/20/21 1113 by Christina Estevez RN Wound 07/17/24; 0811; N; Y es; 1; Other (vessel puncture); Groin; Anterior, Proximal, Right 07/17/24 0811 by Darline Garsia RN Wound 07/17/24; 0834; N; Y es; 1; Incision; Chest; Left, Upper 07/17/24 0834 by Darline Garsia RN Peripheral IV Placement Date: 10/26; Placement Time: 815; Catheter Size: 22 G; Orientation: Posterior, Right; Location: Hand; Site Prep: Chlorhexadine and isopropyl alcohol; Inserted by: Regina Hernandez RN; Insertion Attempts: 1; Patient Tolerance: Tolerated well; Removal Date: 10/08/24; Removal Time: 95110/08/24 08 by Regina Hernandez RN 10/08/24951 by Simi Haque RN documented in this encounter Social History Tobacco Use Types Packs/Day Years Used Date Smoking Tobacco: Never Smokeless Tobacco: Never Alcohol Use Standard Drinks/Week Comments Yes 1 (1 standard drink = 0.6 oz pur e alcohol) 2-3 times per week [facility] Utilities Answer Date Recorded In the past 12 months has [employer], [employer], oil, or water [employer] threatened to shut off services in your [...] PM EDT documented as of this encounter OR Notes * Anesthesia Postprocedure Evaluation - Eitan Medina DO - 10/08/2024 9:43 AM EDT ANESTHESIA POST-EVALUATION [facility] Procedure Summary Date: 10/08/24 Room / Location: [facility] OR [address] [place] [address] SURGERY Anesthesia Start: 909 Anesthesia Stop: 923 Procedure: COLONOSCOPY DIAGNOSTIC / SCREENING (Anus) Diagnosis: Screen for colon cancer (screening) Surgeons: Suhail Faye DO Responsible Provider: Eitan Medina DO Anesthesia Type: MAC ASA Status: 4 Vitals: 10/08/24 0928 BP: 126/79 Pulse: 76 Resp: 16 Temp: 36.4 °C (97.6 °F) SpO2: 98% Patient Evaluated: Phase II Patient Participation: Complete - patient participated Patient Level of Consciousness: Awake and Alert Pain Score: 2 Pain Management: Adequate Airway Patency: Patent Anesthetic Complications: No Cardiovascular Status: Hemodynamically Stable Respiratory Status: Stable/Baseline Post-op Hydration: Euvolemic Final Anesthesia Type: MAC No notable events documented. * Anesthesia Preprocedure Evaluation - Eitan Medina DO - 09/25/2024 10:17 AM EDT Images from the original note were not included. ANESTHESIA PRE-PROCEDURE EVALUATION [employer] Procedure(s): COLONOSCOPY DIAGNOSTIC / SCREENING ANESTHESIA PHYSICAL EXAM Patient summary reviewed and nursing notes reviewed. Airway Mallampati: II TM distance: <3 FB Neck ROM: limited Patient is not intubated Patient does not have tracheostomy Dental Pulmonary : exam normal Cardiovascular : exam normal Abdominal : exam normal Other Findings ANESTHESIA PLAN ASA 4 Anesthesia Type: MAC Induction: Intravenous Anesthetic risks, plan and alternatives discussed with Patient. Plan discussed with SOLE SEWER HAND. Airway Management: Nasal Cannula Transfer to Phase II PONV: Low Risk Total Score: 1 Non-smoker Criteria that do not apply: Female patient History of PONV and/or Motion Sickness Intended opioid administration RCRI: Low Risk: Score of 0 = 3.9% (2.8-5.4%) Risk of major cardiac event Score of 1 = 6.0% (4.9-7.4%) Risk of major cardiac event Total Score: 1 Ischemic Heart Disease Criteria that do not apply: Cerebrovascular Disease Congestive Heart Failure Elevated Risk Surgery Pre-operative Treatment with Insulin Pre-operative Creatinine >2 mg/dL / 176.8 mol/L Patient Active Problem List Diagnosis • Right shoulder pain • Allergic rhinitis • Coronary artery disease of [place] artery of [place] heart with stable angina pectoris • Chest pain • Abnormal stress test • Bunionette of right foot • Corns and callosities • Ingrown nail • Other hammer toe(s) (acquired), right foot • Peripheral vascular disease, unspecified • Type 2 diabetes mellitus with diabetic polyneuropathy ([facility]) • 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 (CMS-HCC) • Edema of right lower leg • Sinus arrhythmia • Unstable angina (CMS-HCC) • Complete heart block (CMS-HCC) • Pacemaker - Flroes documented in this encounter Plan of Treatment Upcoming Encounters Date Type Department Care Team (Late st Contact Info) Description 03/06/2025 9:00 AM EST Clinical Support [facility] [address] [place] [phone] 03/06/2025 9:30 AM EST Office Visit [facility] [address] [place] [address] Piedad Ulloa MD [address] [place], [place] [phone] Carlos Enrique See MD [address] [place] [address] documented as of this encounter Visit Diagnoses Not on filedocumented in this encounter Administered Medications Inactive Administered [...] 8:16 AM EDT 100 mL/hr 100 mL/hr lidocaine (XYLOCAINE) 20 mg/mL (2 %) injection intravenous, As needed, Starting on Tue10/08/24 at 0911, Anesthesia Intra-op Given 10/08/2024 9:11 AM EDT 50 mg propofoL (DIPRIVAN) infusion intravenous, As needed, Starting on Tue10/08/24 at 0911, Anesthesia Intra-op Given 10/08/2024 9:22 AM EDT 50 mg Given 10/08/2024 9:18 AM EDT 50 mg Given 10/08/2024 9:14 AM EDT 50 mg documented in this encounter Additional Health Concerns Assessment Noted Time PHQ-9 Depression Total Score: 0 07/17/19 25 5:19 PM EDT documented as of this encounter Care Teams Field Geologist Relationship Specialty Start Date End Date Taras Tamayo MD PCP - General Family Medicine 09/18/24 documented as of this encounter
--- OUTSIDE RECORDS SUMMARY | 2024-10-08 09:45 | XMS_ITS | Encounter Summary ---
Author Organization [facility] tem Address [id number] [address] [place] [address] Care Team Providers Care Emergency Doctor Name Role Phone Taras Tamayo MD Primary Care Provider [phone] Reason for Visit * Auth/Cert Specialty Diagnoses / Procedures Referred By Contac t Referred To Contact Diagnoses Screen for colon cancer screening Procedures UT COLON CA SCRN NOT HI RSK IND UT COLONOSCOPY FLX DX W/COLLJ SPEC WHEN PFRMD COLONOSCOPY DIAGNOSTIC / SCREENING COLONOSCOPY DIAGNOSTIC / SCREENING Suhail Faye DO [address] [place] [address] Phone: tel: fax: Referral ID Status Reason Start Date Expiration Date Visits Re quested Visits Authorized [id number] Encounter Details Date Type Department Care Team (Late st Contact Info) Description 10/08/2024 9:45 AM EDT - 10/08/2024 10:[address] [facility] - Surgery [address] [place] [address] Suhail Faye DO [address] [place], [place] [phone] COLONOSCOPY DIAGNOSTIC / SCREENING [G0121 +1 more] Surgery Details Date/Time Status Location OR Service Patient Class Case Cl ass Case Type Trauma Case? 10/08/2024 9:45 AM Posted [facility] OR [address] [place] [address] Outpatient Surgery Elective Panel 1 Procedure LRB Anes Op Region Wound Class Comments COLONOSCOPY DIAGNOSTIC / SCREENING N/A Monitored Anesthesia Care Anus Clean Contaminated Surgeon Surgeon Role Service Panel Suhail Faye, DO Primary General 1 documented in this encounter Social History Tobacco Use Types Packs/Day Years Used Date Smoking Tobacco: Never Smokeless Tobacco: Never Alcohol Use Standard Drinks/Week Comments Yes 1 (1 standard drink = 0.6 oz pur e alcohol) 2-3 times per week [facility] Utilities Answer Date Recorded In the past 12 months has th e electric, gas, oil, or water company [...] swallowing) Questions, Problems, Concerns Preop phone number [phone] ext [phone] documented in this encounter Medications at Time [...] AND PHYSICAL INTERVAL NOTE: Morris Belle 1950 [id number] H&P reviewed. The patient was examined and there are no changes to the H&P. Suhail Faye DO Source Note - Rosanna Capellan APRN-DANCE HALL HOST/HOSTESS - 09/18/2024 2:00 PM EDT Images from the original note were not included. Chief Complaint: Colon cancer screening History of Present Illness Morris Belle is a 74 y.o. male who presents to the office for colon cancer screening. His last colonoscopy was in June 2014 at [facility]. He had a bowel resection [...] Past Medical History: Diagnosis Date Abscess Allergic 1975 Grasses, pets Cataract Chronic pain disorder Colon polyp 2003 Dyslipidemia Edema LE Hoarseness Hypoparathyroidism Joint pain Neuropathy Neuropathy estela feet Obesity PAD (peripheral artery disease) Peripheral polyneuropathy Sinus arrhythmia 06/26/2024 Tailor's bunion Visual impairment Past Surgical History: Procedure Laterality Date ACHILLES TENDON REPAIR BOWEL RESECTION 2003 large colon resection Cardiac catheterization - CORS + LV GRAM/PRESS (70225) N/A 11/25/2021 Performed by Savannah Ribeiro MD at [facility] CARDIAC CATH LABS CARPAL TUNNEL RELEASE 2005 COLON SURGERY COLONOSCOPY 2014 EP Invasive groin temp, DC ppm w/ lbb - ABT Left 07/17/2024 Performed by Elliott Luna MD at [facility] HRC (EP) EXTRACTION CATARACT INTRAOCULAR LENS Left 01/20/2021 Performed by Lluvia Ramírez MD at [facility] EXTRACTION CATARACT INTRAOCULAR LENS Right 01/08/2021 Performed by Lluvia Ramírez MD at [facility] EYE SURGERY 01/2021 Cataracts No Known Allergies [...] Resource Strain: Low Risk (08/18/2023) Received from [facility] Overall Financial Resource Strain (CARDIA) Difficulty of Paying Living Expenses: Not hard at all Food Insecurity: No Food Insecurity (08/07/2024) Hunger Screening Food Insecurity - Worry: Never True Food Insecurity - Inability: Never True Transportation Needs: No Transportation Needs (07/16/2024) PRAPARE - Transportation Lack of Transportation (Medical): No Lack of Transportation (Non-Medical): No Physical Activity: Sufficiently Active (08/18/2023) Received from [facility] Exercise Vital Sign Days of Exercise per Week: 3 days Minutes of Exercise per Session: 60 min Stress: No Stress Concern Present (08/18/2023) Received from [facility] [employer] - Occupational Stress Questionnaire Feeling of Stress : Not at all Social Connections: Socially Integrated (08/18/2023) Received from [facility] Social Connection and Isolation Panel [NHANES] Frequency of Communication with Friends and Family: Once a week Frequency of Social Gatherings with Friends and Family: Three times a week Attends [employer] Services: More than 4 times per year [...] patient/family/caregiver Referring and communicating with other health primary care provider Encounter for screening colonoscopy [Z12.11] [facility] [place] This note was created with the assistance of a speech recognition program. While intending to generate a timely document that accurately reflects the content of the visit, no guarantee can be provided that every grammatical or spelling mistake has been or will be identified or corrected. Thank you for your understanding. MYRNA Walker 09/18/24 1440 MYRNA Walker 10/08/24 0756 documented in this encounter Plan of Treatment Upcoming Encounters Date Type Department Care Team (Late st Contact Info) Description 03/06/2025 9:00 AM EST Clinical Support [facility] [address] [place] [address] 03/06/2025 9:30 AM EST Office Visit [facility] [address] [place] [address] Piedad Ulloa MD [address] [place] [address] Carlos Enrique See MD [address] [place] [address] Pending Results Name Type Priority Associated Diagnoses [...] Procedure Name Priority Date/Time Associated Diagnosis Comments UT COLONOSCOPY FLX DX W/COLLJ SPEC WHEN PFRMD 10/08/2024 9:10 AM EDT Screen for colon cancer UT COLON CA SCRN NOT HI RSK IND 10/08/2024 9:10 AM EDT Screen for colon cancer COLONOSCOPY 10/08/2024 8:46 AM EDT PR[facility] COLONOSCOPY Routine 10/08/2024 8:01 AM EDT documented in this encounter Results * Colonoscopy (10/08/2024 8:46 AM EDT) 10/08/2024 8:46 AM EDT Narrative PM CARDIOVASCULAR - 10/08/2024 9:28 AM EDT [facility] Patient Name: Morris Belle Procedure Date No Time: 10/08/2024 CSN : [id number] Date of : 1950 Admit Type: Outpatient Age: 74 Room: [place] [address] Gender: Male Note Status: Finalized Attending MD: [...] were monitored continuously. The [employer] CF-190L # [id number] ADULT COLONOSCOPE was introduced through the anus [...] office PRN. Procedure Code(s): --- Professional --- 99693, Colonoscopy, flexible; with removal of tumor(s), polyp(s), or other lesion(s) by snare technique Diagnosis Code(s): --- Professional --- Z12.11, Encounter for screening for malignant neoplasm of colon Z86.0101, Personal history of adenomatous and serrated colon polyps D12.7, Benign neoplasm of rectosigmoid junction CPT copyright 2022 [employer]. All rights reserved. The codes documented in this report are preliminary and upon breading machine tender review may be revised to meet current compliance requirements. DO Suhail Mazariegos DO 10/08/2024 9:28:06 AM Number of Addenda: 0 Note Initiated On: 10/08/2024 8:46 AM Procedure Note Suhail Faye DO - 10/08/2024 [facility] Patient Name: Morris Belle Procedure Date No Time: 10/08/2024 CSN : [id number] Date of : 1950 Admit Type: Outpatient Age: 74 Room: [place] [address] Gender: Male Note Status: Finalized Attending MD: [...] pulse, and oxygen saturations were monitored continuously. [facility] CF-190[facility] # [id number] ADULT COLONOSCOPE was introduced through the anus [...] office PRN. Procedure Code(s): --- Professional --- 13237, Colonoscopy, flexible; with removal of tumor(s), polyp(s), or other lesion(s) by snare technique Diagnosis Code(s): --- Professional --- Z12.11, Encounter for screening for malignant neoplasm of colon Z86.0101, Personal history of adenomatous and serrated colon polyps D12.7, Benign neoplasm of rectosigmoid junction CPT copyright 2022 [employer]. All rights reserved. The codes documented in this report are preliminary and upon breading machine tender reviewmay be revised to meet current compliance [...] cancer Special screening for malignant neoplasms, colon Screen for colon cancer Special screening for [...] (Continued by Anesthesia - Provider: Breanna Forde APRN-NEIL)[id number] (Due: Order Ending - Provider: Automatic Transfer Provider - Comment: [Order ends at this time. Document the following action when infusion is complete: Stop Bag]) documented in this encounter Additional Health Concerns Assessment Noted Time PHQ-9 Depression Total Score: 0 07/17/19 25 5:19 PM EDT documented as of this encounter Care Teams Emergency Doctor Relationship Specialty Start Date End Date Taras Tamayo MD PCP - General Family Medicine 09/18/24 documented as of this encounter
--- OUTSIDE RECORDS SUMMARY | 2024-10-11 14:07 | XMS_ITS | Patient Health Record ---
Author Organization [facility] [place] Address [address] [place] [address] Care Team Providers Care Assurance Associate Name Role Phone None, Unknown or Primary Care Provider Unavailab Red Fitzgerald Unavailable [phone] Tammi Wilkinson Unavailable [phone] Allergies No Known Allergies Reason For Referral No Information Medications Medication SIG (Take, Route, Frequency, Duration) [...] Question Answer Notes Patient is a nonsmoker Problems Problem Type SNOMED Code ICD Code Onset Dates Problem Status W/U Status Risk Notes Problem 561788761 Peripheral vascular disease, unspecified (I73.9) Active confirmed Problem 30755000 Type 2 diabetes mellitus with diabetic polyneuropathy (E11.42) Active confirmed Problem 8561232351 Varicose veins o f right lower extremity with ulcer other part of lower leg (I83.018) Active confirmed Problem 998333728 Ingrowing nail (L60.0) Active confirmed Problem 396235758 Corns and callosities (L84) Active confirmed Problem 28266474908586318 Non-pressure chronic ulcer of other part of right lower leg limited to breakdown of skin (L97.811) Active confirmed Problem 161517222 Other hammer toe(s) (acquired), right foot (M20.41) Active confirmed Problem Right foot pain (M79.671) Active confirmed Problem 2661032048549648 Bunionette of right foot (M21.621) Active confirmed Problem 7868846258939392 Bunionette of left foot (M21.622) Active confirmed Vital Signs Heart Rate 76 /min 04/26/2024 Temperature 96.8 degrees Fahrenheit 04/26/2024 Respiratory Rate 16 /min 04/26/2024 Oximetry 96 % 04/26/2024 Height 67 in 04/26/2024 Weight 203 lbs 04/26/2024 BMI 31.79 kg/m2 04/26/2024 Encounters Encounter Location Date Provider Diagnosis [facility] (PODIATRY) [address] [place] [address] [place] [address] 11/29/2023 Red Yanes Other specified disorders of the skin and subcutaneous tissue L98.8 ; Bunionette of right foot M21.621 ; Tinea unguium B35.1 and Right foot pain M79.671 [facility] (PODIATRY) [address] [place] [address] [place] [address] 04/26/2024 Tammi Wilkinson Type 2 diabetes mellitus [...] limitations for him from a foot perspective. 04/26/2024 Type 2 diabetes mellitus with diabetic [...] Pain in left toe(s) (ICD-10 - M79.675) 11/29/2023 Tinea unguium (ICD-10 - B35.1) Nails 1 through 10 were sharply debrided and contoured with a Dremel without incident into patient's satisfaction. Patient may follow-up every 3 months for routine nail care 11/29/2023 Right foot pain (ICD-10 - M79.671) Plan Of Treatment Pending Test Test Name Order Date XR Foot RT (3 views) * 11/29/2023 XR foot RT min 3V 12/30/2022 Insurance Providers Payer Name Payer Address Payer Phone Subscriber Number Group Number Insured Name Patient Relationship to Insured Coverage Start Date Coverage End Date [employer] ACCESS PPO PLUS LOCAL PLAN [address] [place] [address] [id number] Morris Belle Self - patient is the insured 1 2 [place]IC[place] [address] [place] [place] [address] [id number] Morris Belle Self - patient is the insured 3 [employer] [address] [place] [id number] Morris Belle Self - patient is the insured Medical (General) History Medical History History ICD Code Tailor's bunion of right foot M21.621 Tailor's bunion of left foot M21.622 Edema of both legs R60.0 Surgical History Surgery Date(Month/Year) correction of hammertoe 05/07/07/07 tailors bunionectomy RIGHT 03/07/23 left achilles hand surgery carpal tunnel cataracts heart cath
--- OUTSIDE RECORDS SUMMARY | 2024-10-11 14:07 | XMS_ITS | Encounter Summary ---
Author Organization [facility] Address [address] [facility] [place] [address] Care Team Providers Care Slot Host Name Role Phone Taras Tamayo MD Primary Care Provider [phone] Taras Tamayo MD Unavailable Encounter Details Date Type Department Care Team (Late st Contact Info) Description 08/31/2023 Orders Only [facility] [address] [place] [address] Taras Tamayo MD [address] [place] [address] Social History Tobacco Use Types Packs/Day Years Used Date Smoking Tobacco: Never Smokeless Tobacco: Never Social Connection and Isolat ion Panel [NHANES] Answer Date Recorded In a typical week, how many times do you talk on the phone with family, friends, or neighbors? Once a week 08/18/2023 How often do you get togethe r with friends or relatives? Three times a week 08/18/2023 How often do you attend chur ch or islam services? More than 4 times per year 08/18/2023 Do you belong to any clubs o r organizations such as congregational groups, unions, fraternal or athletic groups, or school groups? Yes 08/18/2023 How often do you attend meet ings of the clubs or organizations you belong to? More than 4 times per year 08/18/2023 Are you , , di vorced, , never , or living with a partner? 08/18/2023 AUDIT-C Answer Date Recorded Q1: How often do you have a drink containing alc ohol? 2-4 times a month 08/18/2023 Q2: How many drinks containi ng alcohol do you have on a typical day when you are drinking? 1 or 2 08/18/2023 Q3: How often do you have si x or more drinks on one occasion? Never 08/18/2023 Overall Financial Resource Strain (CARDIA) Answe r Date Recorded How hard is it for you to pa y for the very basics like food, housing, medical care, and heating? Not hard at all 08/18/2023 [facility] ional Health - Occupational Stress Questionnaire Answer Date Recorded Do you feel stress - tense, restless, nervous, or anxious, or unable to sleep at night because your mind is troubled all the time - these days? Not at all 08/18/2023 Exercise Vital Sign Answer Date Recorde d On average, how many days pe r week do you engage in moderate to strenuous exercise (like a brisk walk)? 3 days 08/18/2023 On average, how many minutes do you engage in exercise at this level? 60 min 08/18/2023 Hunger Vital Sign Answer Date Recorded Within the past 12 months, y ou worried that your food would run out before you got the money to buy more. Never true 08/18/19 24 Within the past 12 months, t he food you bought just didn't last and you didn't have money to get more. Never true 08/18/2023 PRAPARE - Transportation Answer Date Re corded In the past 12 months, has l ack of transportation kept you from medical appointments or from getting medications? No 08/02 In the past 12 months, has l ack of transportation kept you from meetings, work, or from getting things needed for daily living? No 08/18/2023 Housing Stability Vital Sign Answer Braxton e Recorded In the last 12 months, was t here a time when you were not able to pay the mortgage or rent on time? No 08/18/2023 In the last 12 months, how many places have you lived? 1 08/18/2023 In the last 12 months, was t here a time when you did not have a steady place to sleep or slept in a chcf (including now)? No 08/18/2023 Sex and Gender Information Value Date Recorded Sex Assigned at Not on file Legal Sex Male 9:28 PM EDT Gender Identity Not on file Sexual Orientation Not on file documented as of this encounter Plan of Treatment Upcoming Encounters Date Type Department Care Team (Late st Contact Info) Description 01/02/2025 10:00 AM EDT Office Visit [facility] [address] [place] [address] Taras Tamayo MD [address] [place] [address] documented as of this encounter Procedures Procedure Name Priority Date/Time Associated Diagnosis Comments VASC US LOWER EXTREMITY ARTERIAL DOPPLER COMPLETE Routine 08/30/2023 9:35 AM EDT documented in this encounter Results * Vascular US lower extremity arterial Doppler complete (08/30/2023 9:35 AM EDT) Anatomical Region Laterality Modality Lower Extremities Ultrasound us Taras Tamayo MD CV VASCULAR PROCEDURES Final Res ult documented in this encounter Visit Diagnoses Not on filedocumented in this encounter Care Teams Slot Host Relationship Specialty Start Date End Date Taras Tamayo MD [address] [place] [phone] PCP - General Family Medicine 08/24/23 Taras Tamayo MD [address] [place] [address] PCP - ACO Reach 05/11/24 documented as of this encounter
--- OUTSIDE RECORDS SUMMARY | 2024-10-11 14:07 | XMS_ITS | Encounter Summary ---
Author Organization [facility] Address [address] [place] [address] Care Team Providers Care Client Support Analyst Name Role Phone Taras Tamayo MD Primary Care Provider [phone] Taras Tamayo MD Unavailable Encounter Details Date Type Department Care Team (Late st Contact Info) Description 11/30/2023 Clinisync Result Encounter [facility] External Department Unsolicited Provider, Generic External Data Social History Tobacco Use Types Packs/Day Years [...] 08/18/2023 How often do you attend chur or jewish services? More than 4 times per year 08/18/2023 Do you belong to any clubs o r organizations such as baptist groups, unions, fraternal or athletic groups, or [...] and heating? Not hard at all 08/18/2023 [facility] of Occupat ional Health - Occupational Stress [...] place to sleep or slept in a mcfp (including now)? No 08/18/2023 Sex and Gender Information Value Date Recorded Sex Assigned at Not on file Legal Sex Male 9:28 PM EDT Gender Identity Not on file Sexual Orientation Not on file documented as of this encounter Plan of Treatment Upcoming Encounters Date Type Department Care Team (Late st Contact Info) Description 01/02/2025 10:00 AM EDT Office Visit [facility] [address] [place] [address] Taras Tamayo MD [address] [place] [address] documented as of this encounter Procedures Procedure Name Priority Date/Time Associated Diagnosis Comments XR FOOT RT MIN 3V 11/30/2023 6:2 0 AM EDT documented in this encounter Results * XR FOOT RT MIN 3V (11/30/2023 6:20 AM EDT) Anatomical Region Laterality Modality Other 11/30/2023 6:20 AM EDT Narrative 11/30/2023 6:23 [place] [address] XRay Report Signed Patient: MORRIS FLOYD MR#: [id number] : 1950 Acct:[id number] Age/Sex: 73 / M ADM Date: 11/29/23 Loc: EC Attending Dr: Red Yanes D.P.M. Ordering Physician: Red Yanes D.P.M. Date of Service: 11/29/23 Procedure(s): XR foot RT min 3V Accession Number(s): [id number] cc: Red Yanes D.P.M.; Taras Tamayo M.D. The [address] [address] Patient Name: MORRIS FLOYD MRN: [id number] date: 1950 Sex: M Assigned Patient Location: EC Current Patient Location: Accession/Order Number: [id number] Exam Date: 11/29/2023 11:13 Report Date: 11/30/2023 06:20 At the request of: RED YANES Procedure: XR foot RT min 3V PROCEDURE: XR foot RT min 3V HISTORY: RIGHT FOOT PAIN ; chronic distal 5th metatarsal pain COMPARISON: XR foot right 03/07/2023 FINDINGS: BONES:Moderate degenerative change of first metatarsophalangeal joint. Prior resection of heads of second, third, and fourth proximal phalanges. Prior bunionectomy lateral margin of 5th metatarsal. SOFT TISSUES:No visible soft tissue swelling. EFFUSION:None visible. OTHER: Atherosclerotic disease. XR/XR foot RT min 3V IMPRESSION: 1. Stable surgical changes and degenerative changes. 2. No new or suspicious findings. Electronically authenticated by: KAM SHIELDS Date: 11/30/2023 06:20 Dictated By: Kam Shields M.D. Signed By: 11/30/23622 DD/ 9 TD/TT: Steel Inspector: Procedure Note Radiology, Radiologist, MD - 11/30/2023 [place] [address] XRay Report Signed Patient: MORRIS FLOYD AMR#: [id number] : 1950cct:[id number] Age/Sex: 73 / MADM Date: 11/29/23 Loc: EC Attending Dr: Red Yanes D.P.M. Ordering Physician: Red Yanes D.P.M. Date of Service: 11/29/23 Procedure(s): XR foot RT min 3V Accession Number(s): [id number] cc: Red Yanes D.P.M.; Taras Tamayo M.D. The [place] [id number] Patient Name: MORRIS FLOYD MRN: [id number] date: 1950 Sex: M Assigned Patient Location: Current Patient Location: Accession/Order Number: [id number] Exam Date: 11/29/2023 11:13 Report Date: 11/30/2023 06:20 At the request of: RED YANES Procedure: XR foot RT min 3V PROCEDURE: XR foot RT min 3V HISTORY: RIGHT FOOT PAIN ; chronic distal 5th metatarsal pain COMPARISON: XR foot right 03/07/2023 FINDINGS: BONES:Moderate degenerative change of first metatarsophalangeal joint.Prior resection of heads of second, third, and fourth proximal phalanges. Prior bunionectomy lateral margin of 5th metatarsal. SOFT TISSUES:No visible soft tissue swelling. EFFUSION:None visible. OTHER: Atherosclerotic disease. XR/XR foot RT min 3V IMPRESSION: 1. Stable surgical changes and degenerative changes. 2. No new or suspicious findings. Electronically authenticated by: KAM SHIELDS Date: 11/30/2023 06:20 Dictated By: Kam Shields M.D. Signed By:11/30/23622 DD/ 9 TD/TT: Steel Inspector: Generic External Data Provider [facility] Final Result documented in this encounter Visit Diagnoses Not on filedocumented in this encounter Care Teams Client Support Analyst Relationship Specialty Start Date End Date Taras Tamayo MD [address] [place] [address] PCP - General Family Medicine 08/24/23 Taras Tamayo MD [address] [place] [address] PCP - ACO Reach 05/11/24 documented as of this encounter
--- OUTSIDE RECORDS SUMMARY | 2024-10-11 14:08 | XMS_ITS | Encounter Summary ---
Author Organization [employer] s tem Address [id number] [address] [place] [address] Care Team Providers Care Manager Managed Backup Services Name Role Phone Taras Tamayo MD Primary Care Provider [phone] Encounter Details Date Type Department Care Team (Late st Contact Info) Description 10/23/2021 Orders Only [facility] [address] [place] [phone] External, Scanning Provider Social History Tobacco Use Types Packs/Day Years Used Date Smoking Tobacco: Never Smokeless Tobacco: Never Alcohol Use Standard Drinks/Week Comments Yes 1 (1 standard drink = 0.6 oz pur e alcohol) 2-3 times per week Childcare Answer Date Recorded Childcare Unknown 09/12/2018 Employment Answer Date Recorded Employment Unknown 09/12/2018 Purpose - Life Answer Date Recorded Purpose and direction in life Unknown Sex and Gender Information Value Date Recorded Sex Assigned at Not on file Legal Sex Male 8:40 PM EDT Gender Identity Not on file Sexual Orientation Straight 10/22/2021 3: 18 PM EDT COVID-19 Exposure Response Date Recorded In the last month, have you been in contact with someone who was confirmed or suspected to have Coronavirus / COVID-19? No / Unsure 10/21/2021 8:41 AM EDT documented as of this encounter Plan of Treatment Upcoming Encounters Date Type Department Care Team (Late st Contact Info) Description 03/06/2025 9:00 AM EST Clinical Support [facility] [address] [place] [address] 03/06/2025 9:30 AM EST Office Visit [facility] [address] [place] [phone] Piedad Ulloa MD [address] [place] [address] Carlos Enrique See MD [address] [place] [address] documented as of this encounter Procedures Procedure Name Priority Date/Time Associated Diagnosis Comments MULTIPLE LABS Routine 04/17/2021 LIPID PROFILE Routine 04/17/2021 documented in this encounter Results * Lipid profile (04/17/2021) External Cholesterol 207 MANUALLY TRANSCRIBED RESULTS External Cholesterol:Hdl 1.88 MANUALLY TRANSCRIBED RESULTS External Hdl Cholesterol 65 MANUALLY TRANSCRIBED RESULTS External Ldl (Calc) 122 MANUALLY TRANSCRIBED RESULTS External Triglycerides 102 MANUALLY TRANSCRIBED RESULTS External Very Low Lipoprotein 20 MANUALLY TRANSCRIBED RESULTS us Scanning Provider External LAB BLOOD ORDERABLES Edited Result - Final Performing Organization Address City/[facility]/ZIP Co de Phone Number MANUALLY TRANSCRIBED RESULTS * Multiple labs (04/17/2021) us Scanning Provider External [facility] Final Result Performing Organization Address City/[facility]/ZIP Co de Phone Number MANUALLY TRANSCRIBED RESULTS documented in this encounter Visit Diagnoses Not on filedocumented in this encounter Care Teams Manager Managed Backup Services Relationship Specialty Start Date End Date Taras Tamayo MD PCP - General Family Medicine 09/18/24 documented as of this encounter
--- OUTSIDE RECORDS SUMMARY | 2024-10-11 14:08 | XMS_ITS | Encounter Summary ---
Author Organization [facility] Address [address] [place] [address] Care Team Providers Care Milk Pickup Truck Driver Name Role Phone Taras Tamayo MD Primary Care Provider [phone] Taras Tamayo MD Unavailable Encounter Details Date Type Department Care Team (Late st Contact Info) Description 06/08/2024 Orders Only [facility] [address] [place] [address] Lluvia Ramírez MD [facility] [address] [place] [address] Social History Tobacco Use Types Packs/Day Years [...] often do you attend chur ch or amish services? More than 4 times per year 08/18/2023 Do you belong to any clubs o r organizations such as shinto groups, unions, fraternal or athletic groups, or [...] and heating? Not hard at all 08/18/2023 PHQ-2 Answer Date Recorded Patient Health Questionnaire-2 Score 2 05/22/2024 [facility] of Occupat ional Health - Occupational Stress [...] place to sleep or slept in a senior care (including now)? No 08/18/2023 Sex and Gender [...] Office Visit [facility] [address] [place] [address] Taras Tamayo MD [address] [place] [address] documented as of this encounter Procedures Procedure Name Priority Date/Time Associated Diagnosis Comments DIABETES EYE EXAM Routine 06/08/2024 8:35 AM EST DIABETIC RETINOPATHY SCREENING - OU - BOTH EYES Routine 02/27/2024 1:09 PM EST documented in this encounter Results * Diabetes Eye Exam (06/08/2024 8:35 AM EST) us Lluvia Ramírez MD HEALTH MAINTENANCE Final Result * Diabetic Retinopathy Screening - OU - Both Eyes (02/27/2024 1:09 PM EST) Anatomical Region Laterality Modality Head Other us Lluvia Ramírez MD OPHTH PHOTOGRAPHY Final Result documented in this encounter Visit Diagnoses Not on filedocumented in this encounter Additional Health Concerns Assessment Noted Time PHQ-9 Depression Total Score: 4 05/22/19 25 11:00 AM EST documented as of this encounter Care Teams Milk Pickup Truck Driver Relationship Specialty Start Date End Date Taras Tamayo MD [address] [place] [address] PCP - General Family Medicine 08/24/23 Taras Tamayo MD [address] [place] [address] PCP - ACO Reach 2/7/25 documented as of this encounter
--- OUTSIDE RECORDS SUMMARY | 2024-10-11 14:08 | XMS_ITS | Encounter Summary ---
Author Organization [employer] s tem Address [id number] [address] [place] [address] Care Team Providers Care Cable Mock Up Assembler Name Role Phone Taras Tamayo MD Primary Care Provider [phone] Encounter Details Date Type Department Care Team (Late st Contact Info) Description 07/19/2024 [facility]phone [facility] [address] [place] [address] Courtney Cueva RN Social History Tobacco Use Types Packs/Day Years Used Date Smoking Tobacco: Never Smokeless Tobacco: Never Alcohol Use Standard Drinks/Week Comments Yes 1 (1 standard drink = 0.6 oz pur e alcohol) 2-3 times per week [facility] Utilities Answer Date Recorded In the past 12 months has th e [employer], gas, oil, or water company threatened to [...] got money to buy more. Never True 07/16/2024 Within the past 12 months th e food we bought just didn't last and we didn't have money to get more. Never True 07/16/2024 Purpose - Life Answer Date Recorded Purpose and direction in life Unknown Sex and Gender Information Value Date Recorded Sex Assigned at Not on file Legal Sex Male 8:40 PM EDT Gender Identity Not on file Sexual Orientation Straight 10/22/2021 3: 18 PM EDT documented as of this encounter Miscellaneous Notes * Telephone Encounter - Courtney Cueva RN - 07/19/2024 9:26 AM EDT Images from the original note were not included. 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 Discharging 07/18/2024. Please arrange protocol EP nurse practitioner follow-up for wound check and a device check in 4-6 weeks. Pending lab work ordered as well. documented in this encounter Plan of Treatment Upcoming Encounters Date Type Department Care Team (Late st Contact Info) Description 03/06/2025 9:00 AM EST Clinical Support [facility] [address] [place] [address] 03/06/2025 9:30 AM EST Office Visit [facility] [address] [place] [address] Piedad Ulloa MD [address] [place] [address] Carlos Enrique See MD [address] [place] [address] documented as of this encounter Visit Diagnoses Not on filedocumented in this encounter Additional Health Concerns Assessment Noted Time PHQ-9 Depression Total Score: 0 07/17/19 25 5:19 PM EDT documented as of this encounter Care Teams Cable Mock Up Assembler Relationship Specialty Start Date End Date Taras Tamayo MD PCP - General Family Medicine 09/18/24 documented as of this encounter
--- OUTSIDE RECORDS SUMMARY | 2024-10-11 14:08 | XMS_ITS | Encounter Summary ---
Author Organization [facility] Address [address] [place] [address] Care Team Providers Care Petroleum Inspector Name Role Phone Taras Tamayo MD Primary Care Provider [phone] Taras Tamayo MD Primary Care Provider [phone] Taras Tamayo MD Unavailable Encounter Details Date Type Department Care Team ([facility] Contact Info) Description 03/10/2023 Abstract [facility] [address] [place] [address] Taras Tamayo MD [address] [place] [address] Social History Tobacco Use Types Packs/Day Years Used Date Smoking Tobacco: Never Assessed Sex and Gender Information Value Date Recorded Sex Assigned at Not on file Legal Sex Male 9:28 PM EDT Gender Identity Not on file Sexual Orientation Not on file documented as of this encounter Plan of Treatment Upcoming Encounters Date Type Department Care Team (Late Contact Info) Description 01/02/2025 10:00 AM EDT Office Visit [facility] [address] [place] [address] Taras Tamayo MD [address] [place] [address] documented as of this encounter Visit Diagnoses Not on filedocumented in this encounter Care Teams Petroleum Inspector Relationship Specialty Start Date End Date Taras Tamayo MD PCP - General Family Medicine 09/29/22 08/23/23 Taras Tamayo MD [address] [place] [address] PCP - General Family Medicine 08/24/23 Taras Tamayo MD [address] [place] [address] PCP - ACO Reach 05/11/24 documented as of this encounter
--- OUTSIDE RECORDS SUMMARY | 2024-10-11 14:08 | XMS_ITS | Encounter Summary ---
Author Organization [facility] Address [address] [facility] [place] [address] Care Team Providers Care Research Dairy Farm Supervisor Name Role Phone Taras Tamayo MD Primary Care Provider [phone] Taras Tamayo MD Unavailable Encounter Details Date Type Department Care Team (Late st Contact Info) Description 08/30/2023 Orders Only [facility] [address] [place] [address] Taras Tamayo MD [address] [place] [address] Social History Tobacco Use Types Packs/Day Years [...] often do you attend chur ch or synagogue services? More than 4 times per year 08/18/2023 Do you belong to any clubs o r organizations such as scientologist groups, unions, fraternal or athletic groups, or [...] and heating? Not hard at all 08/18/2023 [facility] of Occupat ional Health - Occupational Stress [...] place to sleep or slept in a skilled nursing (including now)? No 08/18/2023 Sex and Gender [...] Office Visit [facility] [address] [place] [address] Taras Tamayo MD [address] [place] [address] documented as of this encounter Procedures Procedure Name Priority Date/Time Associated Diagnosis Comments MISCELLANEOUS LAB TEST Routine 08/26/2023 10:49 AM EDT documented in this encounter Results * - Miscellaneous Test (08/26/2023 10:49 AM EDT) Taras Tamayo MD LAB BLOOD ORDERABLES Final Resul t documented in this encounter Visit Diagnoses Not on filedocumented in this encounter Care Teams Research Dairy Farm Supervisor Relationship Specialty Start Date End Date Taras Tamayo MD [address] [place] [address] PCP - General Family Medicine 08/24/23 Taras Tamayo MD [address] [place] [address] PCP - ACO Reach 05/11/24 documented as of this encounter
--- OUTSIDE RECORDS SUMMARY | 2024-10-11 14:08 | XMS_ITS | Encounter Summary ---
Author Organization [facility] tem Address [id number] [address] [place] [address] Care Team Providers Care Sock Lining Examiner Name Role Phone Taras Tamayo MD Primary Care Provider [phone] Reason for Visit * Reason Onset Date Comments Abnormal ECG 10/21/2021 Positive stress test called as critical by Dr Gonzalez Encounter Details Date Type Department Care Team (Late st Contact Info) Description 10/21/2021 Telephone [facility] [address] [place] [address] Barb Knight RN Abnormal ECG (Positive stress test called as critical by Dr Gonzalez) Social History Tobacco Use Types Packs/Day Years [...] AM EDT documented as of this encounter Miscellaneous Notes * Telephone Encounter - Barb Knight RN - 10/21/2021 1:[address] Tamayo to report positive stress test. Had to LVM * Telephone Encounter - Barb Knight RN - 10/21/2021 1:01 PM EDT Was able to speak to Dr Serrano call inform of positive test results documented in this encounter Plan of Treatment Upcoming Encounters Date Type Department Care Team (Late st Contact Info) Description 03/06/2025 9:00 AM EST Clinical Support [facility] [address] [place] [address] 03/06/2025 9:30 AM EST Office Visit [facility] [address] [place] [address] Piedad Ulloa MD [address] [place] [address] Carlos Enrique See MD [address] [place] [address] documented as of this encounter Visit Diagnoses Not on filedocumented in this encounter Care Teams Sock Lining Examiner Relationship Specialty Start Date End Date Taras Tamayo MD PCP - General Family Medicine 09/18/24 documented as of this encounter
--- OUTSIDE RECORDS SUMMARY | 2024-10-11 14:08 | XMS_ITS | Clinical Summary ---
Author Organization [facility] Address [id number] [address] [place] [address] Care Team Providers Care Manager Developmental Name Role Phone Taras Tamayo MD Primary Care Provider [phone] Allergies No known active allergies Medications gabapentin (NEURONTIN) 300 mg capsule Take 1 capsule (300 mg total) by mouth in the morning and 1 capsule (300 mg total) before bedtime. Active aspirin 81 mg Take 1 tablet (81 mg total) by mouth in the morning. 2 tablet 11/19/19 22 Active acetaminophen (TYLENOL EXTRA STRENGTH) 500 mg tablet Take 1 tablet (500 mg total) by mouth every 6 (six) hours as needed for pain. 30 tablet 12/15/19 23 Active nitroglycerin (NITROSTAT) 0.4 MG SL tablet 1 under the tongue as needed for angina, may repeat q5mins for up three doses 25 tablet 11 06/27/19 24 Active atorvastatin (LIPITOR) 80 mg tablet Take 1 tablet (80 mg total) by mouth nightly. 90 tablet 50 07/19/19 25 Active empagliflozin (JARDIANCE) 10 mg tablet tablet Take 1 tablet (10 mg total) by mouth in the morning. 90 tablet 2 07/20/19 25 Active metoprolol succinate XL (TOPROL XL) 25 mg 24 hr tablet Take 1 tablet (25 mg total) by mouth in the morning. 90 tablet 2 07/20/19 25 Active isosorbide mononitrate (IMDUR) 30 mg 24 hr tablet Take 1 tablet (30 mg total) by mouth daily for 360 days. 90 tablet 3 08/08/19 25 026 Active sod sulf-pot chloride-mag sulf 1.479-0.188- 0.225 gram tabletIndicatio ns:Encounter for screening colonoscopy Please see instructional sheet given by physicians office. 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 01/12/2023 Edema of right lower leg 01/12/2023 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 11/18/2021 Chest pain 11/18/2021 Abnormal stress test 11/18/2021 Allergic rhinitis 06/08/2021 Right shoulder pain 04/15/2021 Resolved Problems Problem Noted Date Diagnosed Date Resolved Date Unstable angina 11/18/2021 12/28/2022 Overview (11/18/2021): Added automatically from request for surgery [id number] Encounters Date Type Department Care Team Description 10/08/2024 9:45 AM EDT - 10/08/2024 10:15 AM EDT Surgery [facility] - Surgery [address] [place] [address] Suhail Faye, DO COLONOSCOPY DIAGNOSTIC / SCREENING [G0121 +1 more] 10/08/2024 9:10 AM EDT Anesthesia Event [facility] - Surgery [address] [place] [address] Eitan Medina DO 10/08/2024 7:48 AM EDT - 10/08/2024 10:02 AM EDT Hospital Encounter [facility] - Surgery [address] [place] [address] Suhail Faye DO Adenomatous polyp of sigmoid colon (Primary Dx); Screen for colon cancer Discharge Disposition: Home 10/08/2024 Travel 10/02/2024 4:00 PM EDT Support Visit [facility] - Pre Admit [address] [place] [address] 09/18/2024 2:00 PM EDT Office Visit [facility] [address] [place] [address] Rosanna Capellan APRN-[facility] Encounter for screening colonoscopy (Primary Dx) 09/16/2024 Travel 09/05/2024 Travel 08/30/2024 Orders Only [facility] [address] [place] [address] Elliott Luna MD Pacemaker - Flores 08/29/2024 1:45 PM EDT Clinical Support [facility] [address] [place] [address] Pacemaker - Flores (Primary Dx) 08/28/2024 Telephone [facility] [address] [place] [address] Hayde Nash CMA 08/27/2024 Travel 08/22/2024 Telephone [facility] [address] [place] [address] Nancy Daniel RN Surgical Or Dental Clearance 08/07/2024 8:30 AM EDT Office Visit [facility] [address] [place] [address] Corazon Aranda PA-C Coronary artery disease of tunica-biloxi artery of tunica-biloxi heart with stable angina pectoris (Primary Dx); Complete heart block (CMS-HCC) 08/05/2024 Travel 08/01/2024 2:00 PM EDT - 08/01/2024 11:59 PM EDT Hospital Encounter [facility] - Cardiovascular [address] [place] [phone] Carlos Enrique See MD KIM (dyspnea on exertion) Discharge Disposition: Home 07/30/2024 Travel 07/30/2024 Hospital Encounter [facility] - Cardiac Cath [address] [place] [address] Lucille Saenz MD [facility] 07/25/2024 9:13 AM EDT - 07/25/2024 11:59 PM EDT Hospital Encounter [facility] - Lab [address] [place] [address] Complete heart block ([facility]); 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 ([facility]) Discharge Disposition: Home 07/25/2024 Travel 07/23/2024 Telephone [facility] [address] [place] [address] Jaylen Hung RN Need for Cardiac Cath 07/20/2024 Documentation [facility] [address] [place] [address] Sandra Wan RN Samples 07/19/2024 Telephone [facility] [address] [place] [address] Courtney Cueva RN 07/17/2024 7:30 AM EDT - 07/17/2024 9:00 AM EDT Surgery [facility] - [facility] [address] [place] [address] Elliott Luna MD EP Invasive dee diana, VIDYA ppm w/ lbb - ABT 07/16/2024 3:38 PM EDT - 07/18/2024 1:55 PM EDT Hospital Encounter [facility] - GEN 5 ICU [address] [place] [address] Alvino Yadav DO Goyal, Vishal, MD Complete heart block (CMS-HCC) (Primary Dx); Bradycardia; 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 (CMS-HCC) Discharge Disposition: Home 07/16/2024 8:44 AM EDT - 07/16/2024 3:37 PM EDT Hospital Encounter [facility] - Lab [address] [place] [address] Coronary artery disease of tunica-biloxi artery of tunica-biloxi heart with stable angina pectoris; KIM (dyspnea on exertion) Discharge Disposition: Home 07/16/2024 8:15 AM EDT Office Visit [facility] [address] [place] [address] Carlos Enrique See MD Coronary artery disease of tunica-biloxi artery of tunica-biloxi heart with stable angina pectoris (Primary Dx); KIM (dyspnea on exertion) 07/16/2024 Orders Only [facility] [address] [place] [address] External, Scanning Provider 07/16/2024 Telephone [facility] [address] [place] [address] Ciara Jang RN 07/16/2024 Telephone [facility] [address] [place] [address] Manuela Magallanes, concrete pipe machine operator 07/15/2024 Travel from Last 3 Months Immunizations Immunization Administration Dates Next Due COVID-19, mRNA, LNP-S, PF, 3 0mcg/0.3mL Dose 06/16/2020,05/26/2020 Influenza High Dose Preserva tive Free IM 03/23/2024 Influenza Vaccine, Quadrival ent, Adjuvanted 01/31/2023 Influenza, High-dose, Quadrivalent 12/28/2021, Influenza, Im Trivalent Preservative ,01/03/2013,04/04/2011,04/04 Influenza, Injectable, quadr ivalent (PF) 01/24/2015 Pneumococcal Conjugate 13-Valent 02/09/2020 Pneumococcal Conjugate 20-valent 03/23/2024 Pneumococcal Polysaccharide 09/28/2021 RSV, recombinant, protein krause bunit RSVpreF, adjuvant reconstituted, 0.5 mL, PF 01/31/2023 Tdap 10/25/2011 Zoster Live 08/07/2015 Family History Medical History Relation Name Comments Heart disease Brother Jose Belle Kidney disease Brother Jose Belle Stroke Father Sagar Belle Uterine cancer Maternal Grandmother Sinai Keenan Breast cancer Mother Hollie Belle Cancer Mother Hollie Belle Breast cancer Sister Piedad Nelson Cancer Sister Piedad Nelson Relation Name Status Comments Brother Jose Belle Alive Father Sagar Belle Maternal Grandmother Sinai Keenan Alive Mother Hollie Belle Sister Piedad Nelson Social History Tobacco Use Types Packs/Day Years Used Date Smoking Tobacco: Never Smokeless Tobacco: Never Tobacco Cessation:Counseling Given: Not Answered Alcohol Use Standard Drinks/Week Comments Yes 1 (1 standard drink = 0.6 oz pur e alcohol) 2-3 times per week [employer] Answer Date Recorded In the past 12 months has [employer], gas, oil, or water [employer] threatened to shut off services in your [...] Orientation Straight 10/22/2021 3: 18 PM EDT Last Filed Vital Signs Vital Sign Reading [...] Mass Index 29.76 10/08/2024 8:07 AM EDT Plan of Treatment Upcoming Encounters Date Type Department Care Team (Late st Contact Info) Description 03/06/2025 9:00 AM EST Clinical Support [facility] [address] [place] [address] 03/06/2025 9:30 AM EST Office Visit [facility] [address] [place] [address] Piedad Ulloa MD [address] [place] [address] Carlos Enrique See MD [address] [place], [place] [id number] Health Maintenance Due Date Last Done Comments Diabetic Ophthalmology Exam 1950 Adult BMI Follow Up Plan 01/20/1970 Diabetic Foot Exam 01/20/1970 Zoster (Shingles) Vaccine (2 of 3) 10/02/20152015 Fall Risk Screening 01/20/2017 DTaP,Tdap and Td Vaccines (2 - Td or Tdap) 10/24/2021 10/25/2011 COVID-19 Vaccine (2023-2 5 season) 2024 03/23/2024, 01/31/2023, 12/28/2021, Additional history exists Influenza Vaccine 12/03/2024 03/23/2024, , 12/28/2021, Additional history exists Depression Screening 07/16/2025 07/16/2024 Adult BMI Screening 10/08/2025 10/08/2024 Tobacco Screening 10/08/2025 10/08/2024 Medical Devices Implanted Type Area Environmental Engineering Professor Device Identifier Shelf Expiration Date Model / Serial / Lot Lead Pcng 65cm Ultipace Mr Conditional Bp Strd Corbin Pu Ptfe - [id number] - [id number] Implanted:Qty: 1 on 07/17/2024 by Elliott Luna MD at [facility] Implant Lead Left: Chest [employer] [id number] 05/04/2027 [id number]/ 65 / [id number] / Lead Pcng 52cm Ultipace Mr Conditional Bp Strd Corbin Pu Ptfe - [id number] - [id number] Implanted:Qty: 1 on 07/17/2024 by Elliott Luna MD at [facility] Implant Lead Left: Chest [employer] [id number] 05/04/2027 [id number]/ [id number] / [id number] / Lens Iol 0 D +14.5 D +3 Cyl Bicvx Acrsf Iq Stableforce 13mm - [id number] - [id number] Implanted:Qty: 1 on 01/08/2021 by Lluvia Ramírez MD at [facility] Lens Right: Eye [employer] 08/09/2023 [id number] 14.5 / [id number] / Lens Iol Ultrasert 13.5d - [id number] - [id number] Implanted:Qty: 1 on 01/20/2021 by Lluvia Ramírez MD at [facility] Lens Left: Eye [employer] 11/14/2022 [id number] 13.5 / [id number] / NA Pacemaker Thk6mm Assurity Mri 2 Chmbr Is-1 Cnct 32r32pj [facility] [id number] - [id number] Implanted:Qty: 1 on 07/17/2024 by Elliott Luna MD at [facility] Other Implant Left: Chest [employer] [id number] 12/02/2025 [id number] / [id number] / Procedures Procedure Name Priority Date/Time Associated Diagnosis Comments CA COLONOSCOPY FLX DX W/COLLJ SPEC WHEN PFRMD 10/08/2024 9:10 AM EDT Screen for colon cancer CA COLON CA SCRN NOT HI RSK IND 10/08/2024 9:10 AM EDT Screen for colon cancer COLONOSCOPY 10/08/2024 8:46 AM EDT PROVATION COLONOSCOPY Routine 10/08/2024 8:01 AM EDT LIPID PROFILE Routine 09/07/2024 7:28 AM EDT Coronary artery disease of tunica-biloxi artery of tunica-biloxi heart with stable angina pectoris DEVICE INTERROGATION Routine 08/29/2024 Pacemaker - Flores IN CLINIC DEVICE CHECK Routine 11:00 PM EDT ECHO COMPLETE WO CONTRAST Routine 08/01/2024 2:37 PM EDT KIM (dyspnea on exertion) COMPREHENSIVE METABOLIC PANEL Routine 07/25/2024 9:13 AM EDT Complete heart block (CMS-HCC) B-TYPE NATRIURETIC PEPTIDE STAT 07/25/2024 9:13 AM EDT Complete heart block (CMS-HCC) 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 ([facility]) XR CHEST 2 VWS STAT 07/18/2024 5:51 AM EDT IONIZED CALCIUM Routine 07/18/2024 5:20 AM EDT FOLATE Add-On 07/18/2024 3:00 AM EDT FERRITIN Add-On 07/18/2024 3:00 AM EDT IRON AND TIBC Add-On 07/18/2024 3:00 AM EDT VITAMIN B12 Add-On 07/18/2024 3:00 AM EDT B-TYPE NATRIURETIC PEPTIDE Routine 07/18/2024 3:00 AM EDT MAGNESIUM Routine 07/18/2024 3:00 AM EDT COMPREHENSIVE METABOLIC PANEL Routine 07/18/2024 3:00 AM EDT CBC WITH AUTO DIFFERENTIAL Routine 07/18/2024 3:00 AM EDT XR CHEST 1 VW STAT 07/17/2024 10:26 AM EDT ECG 12-LEAD Routine 07/17/2024 10:01 AM EDT EP INVASIVE Routine 07/17/2024 9:47 AM EDT IONIZED CALCIUM Routine 07/17/2024 4:57 AM EDT MAGNESIUM Routine 07/17/2024 2:50 AM EDT COMPREHENSIVE METABOLIC PANEL Routine 07/17/2024 2:50 AM EDT CBC WITH AUTO DIFFERENTIAL Routine 07/17/2024 2:50 AM EDT POTASSIUM Add-On 07/16/2024 7:40 PM EDT LACTATE Today 07/16/2024 7:40 PM EDT ECHO COMPLETE W CONTRAST Today 07/16/2024 6:57 PM EDT TROPONIN I, HIGH SENSITIVITY STAT 07/16/2024 6:46 PM EDT THYROID PROFILE INCLUDES TSH FT4 Routine 07/16/2024 6:46 PM EDT PHOSPHORUS Routine 07/16/2024 6:46 PM EDT MAGNESIUM Routine 07/16/2024 6:46 PM EDT ECG 12-LEAD Routine 07/16/2024 6:31 PM EDT BEDSIDE GLUCOSE Routine 07/16/2024 5:38 PM EDT TROP I, HIGH SENSITIVITY 1 HOUR STAT 07/16/2024 4:47 PM EDT B-TYPE NATRIURETIC PEPTIDE STAT 07/16/2024 3:50 PM EDT APTT STAT 07/16/2024 3:50 PM EDT PROTIME & INR STAT 07/16/2024 3:50 PM EDT MAGNESIUM STAT 07/16/2024 3:50 PM EDT LACTATE W/ REFLEX STAT 07/16/2024 3:5 0 PM EDT COMPREHENSIVE METABOLIC PANEL STAT 07/16/2024 3:50 PM EDT CBC WITH AUTO DIFFERENTIAL STAT 07/16/2024 3:50 PM EDT TROPONIN I, HIGH SENSITIVITY STAT 07/16/2024 3:50 PM EDT PM ED CRITICAL CARE Routine 07/16/2024 3 :46 PM EDT ECG 12-LEAD STAT 07/16/2024 3:37 PM EDT CBC (NO DIFF) Routine 07/16/2024 8:43 AM EDT Coronary artery disease of tunica-biloxi artery of tunica-biloxi heart with stable angina pectoris KIM (dyspnea on exertion) BASIC METABOLIC PANEL Routine 07/16/2024 8:43 AM EDT Coronary artery disease of tunica-biloxi artery of tunica-biloxi heart with stable angina pectoris KIM (dyspnea on exertion) from Last 3 Months Results * Colonoscopy (10/08/2024 8:46 AM EDT) 10/08/2024 8:46 AM EDT Narrative PM CARDIOVASCULAR - 10/08/2024 9:28 AM EDT [facility] Patient Name: Morris Belle Procedure Date No Time: 10/08/2024 CSN : [id number] Date of : 1950 Admit Type: Outpatient Age: 74 Room: [place] [address] Gender: Male Note Status: Finalized Attending MD: [...] were monitored continuously. The OLYMPUS CF-190L # [id number] ADULT COLONOSCOPE was introduced through the anus [...] office PRN. Procedure Code(s): --- Professional --- 22475, Colonoscopy, flexible; with removal of tumor(s), polyp(s), or other lesion(s) by snare technique Diagnosis Code(s): --- Professional --- Z12.11, Encounter for screening for malignant neoplasm of colon Z86.0101, Personal history of adenomatous and serrated colon polyps D12.7, Benign neoplasm of rectosigmoid junction CPT copyright 2022 [employer]. All rights reserved. The codes documented in this report are preliminary and upon customer support agent review may be revised to meet current compliance requirements. DO Suhail Mazariegos DO 10/08/2024 9:28:06 AM Number of Addenda: 0 Note Initiated On: 10/08/2024 8:46 AM Procedure Note Suhail Faye DO - 10/08/2024 [facility] Patient Name: Morris Belle Procedure Date No Time: 10/08/2024 CSN : [id number] Date of : 1950 Admit Type: Outpatient Age: 74 Room: [place] [address] Gender: Male Note Status: Finalized Attending MD: [...] pulse, and oxygen saturations were monitored continuously. TheMelodeo CF-190L # [id number] ADULT COLONOSCOPE was introduced through the anus [...] office PRN. Procedure Code(s): --- Professional --- 85739, Colonoscopy, flexible; with removal of tumor(s), polyp(s), or other lesion(s) by snare technique Diagnosis Code(s): --- Professional --- Z12.11, Encounter for screening for malignant neoplasm of colon Z86.0101, Personal history of adenomatous and serrated colon polyps D12.7, Benign neoplasm of rectosigmoid junction CPT copyright 2022 [employer]. All rights reserved. The codes documented in this report are preliminary and upon customer support agent reviewmay be revised to meet current compliance [...] DO IMG OR IMG ORDERABLES Final Result * (ABNORMAL) Lipid panel (09/07/2024 7:28 AM EDT) CHOLESTEROL 112(L) 150 - 200 mg/dL 09/07/2024 2:40 PM EDT [facility] TRIGLYCERIDE 88 27 - 150 mg/dL 09/07/2024 2:40 PM EDT [facility] HDL CHOLESTEROL 49 >39 mg/dL 2:40 PM EDT [facility] Comment: HDL <40 mg/dL - High Risk HDL > or = 40mg/dL- Desirable HDL >60 mg/dL - Negative Risk LDL (CALC) 45 <130 mg/dL 09/07/2024 2:40 PM EDT [facility] Comment: LDL <100 mg/dL - Desirable LDL >160 mg/dL - High Risk CHOLESTEROL:HDL 2.3 1.0 - 5.0 2:40 PM EDT [facility] VERY LOW LIPOPROTEIN 18 0 - 30 mg/dL 09/07/2024 2:40 PM EDT [facility] Blood Venous blood / Unknown Venipuncture / Unknown 09/07/2024 7:28 AM EDT 09/07/2024 7:28 AM EDT us Corazon Aranda PA-C LAB BLOOD ORDERABLES Final Resul t [facility] [address] [place] [address], [place] [phone] * Device Interrogation (08/29/2024) Anatomical Region Laterality Modality Other us Elliott Luna MD CV CARDIAC SERVICES ORDERABLES F inal Result * In Clinic Device Check (08/28/2024 11:00 PM EDT) Anatomical Region Laterality Modality Other 08/28/2024 11:0 0 PM EDT us Elliott Luna MD HEALTH MAINTENANCE Final Result * Echo complete W/O contrast (08/01/2024 2:37 PM EDT) LVOT stroke volume 71.73 ml XCELERA LV Systolic Volume 27.30 mL XCELERA EF 67 % XCELERA FS 36 28 - 44 % XCELERA LV Diastolic Volume 82.20 mL XCELERA LVIDd 4.20 cm XCELERA LVIDs 2.70 cm XCELERA IVS 1.00 0.6 - 1.1 cm XCELERA PW 1.10 0.6 - 1.1 cm XCELERA LVOT diameter 1.90 cm XCELERA TDI 8.70 cm/s XCELERA MV TDI E' (medial) 8.16 cm/s XCELERA LA size 4.00 cm XCELERA Aortic root 2.70 cm XCELERA RV diastolic dimension (basal) 36.0 mm XCELERA AV peak shad 154.00 cm/s XCELERA LVOT peak shad 1.35 m/s XCELERA AV VTI 26.30 cm XCELERA LVOT peak VTI 25.30 cm XCELERA AV mean gradient 6.00 mmHg XCELERA AV peak gradient 9.49 mmHg XCELERA AV valve area 2.73 XCELERA Valve area - Index 1.3 XCELERA TR Peak Shad 3.5 m/s XCELERA TR peak gradient 48.00 mmHg XCELERA LV ESV A2C 42.30 mL XCELERA LV ESV A4C 55.00 mL XCELERA LV RWT 2D 52.38 XCELERA Echo EF Estimated 67 % XCELERA AV Velocity Ratio 0.96 XCELERA Left Ventricle Mass 146.48061 [id number] 1 g XCELERA Interventricular Septum Diastolic Thickness by 2D 10 cm XCELERA LA Volume Index 20.4 mL/m2 XCELERA TASV 11.2 cm/s XCELERA RA 2D Volume 16.0 mL/m2 XCELERA Est. RA pressure 3 mmHg XCELERA RA area 15.2 cm2 XCELERA RV Peak Systolic Pressure 51 mmHg XCELERA Anatomical Region Laterality Modality Chest N/A Ultrasound Narrative 08/01/2024 2:56 PM EDT Left Ventricle: Left ventricle appears normal in size. Systolic function is normal with an ejection fraction of 65-70%. Right Ventricle: The right ventricular basal diameter is 36.0 mm. Systolic function is normal. A pacer wire is present in the right ventricle. Mitral Valve: There is mild regurgitation. There is no evidence of mitral valve stenosis. Tricuspid Valve: There is mild regurgitation. There is no evidence of tricuspid valve stenosis. The right ventricular systolic pressure is mild to moderately elevated. RVSP calculated at 51 mmHg. RVSP is based on RA pressure of 3 mmHg. Aortic Valve: The aortic valve is trileaflet. There is no regurgitation or stenosis. Left Ventricle Left ventricle appears normal in size. There is borderline increased wall thickness/hypertrophy. Systolic function is normal with an ejection fraction of 65-70%. No obvious regional wall motion abnormalities. Diastolic function assessment is indeterminate. Lateral E' is 8.70 cm/s. Medial E' is 8.16 cm/s. Right Ventricle The right ventricular basal diameter is 36.0 mm. Systolic function is normal. A pacer wire is present in the right ventricle. Left Atrium Left atrium volume index is normal. The left atrial volume index is 20.4 mL/m2. Right Atrium Right atrium is normal in size. The right atrial area is 15.2 cm2. IVC/SVC IVC appears normal. Mitral Valve The leaflets are not thickened. There is mild annular calcification. There is mild regurgitation. There is no evidence of mitral valve stenosis. Tricuspid Valve Tricuspid valve appears to be normal. There is mild regurgitation. There is no evidence of tricuspid valve stenosis. The right ventricular systolic pressure is mild to moderately elevated. RVSP calculated at 51 mmHg. RVSP is based on RA pressure of 3 mmHg. Aortic Valve The aortic valve is trileaflet. There is no regurgitation or stenosis. Pulmonic Valve The pulmonic valve was not well visualized. There is trace regurgitation. There is no evidence of pulmonic valve stenosis. Ascending Aorta The aortic root is normal in size. Pericardium There is no pericardial effusion. Study Details A complete echo was performed using complete 2D, color flow Doppler and spectral Doppler. The study was difficult due to patient's body habitus. Wall Scoring Baseline Score Index: 1.00 The left ventricular wall motion is normal. us Carlos Enrique See MD CV ECHO ORDERABLES Final Res ult * B-type natriuretic peptide (07/25/2024 9:13 AM EDT) Only the most recent of3 resultswithin the time period is included. Pathologist [facility] BNP 61 <100.0 pg/mL 07/25/2024 10:13 AM EDT [facility] 07/25/2024 9:13 AM EDT 07/25/2024 9:14 AM EDT us Nasima Higginbotham MD LAB BLOOD ORDERABLES Final Resul t [address] [place] [address] * (ABNORMAL) Comprehensive metabolic panel (07/25/2024 9:13 AM EDT) Only the most recent of4 resultswithin the time period is included. [facility] Sodium 138 134 - 146 mmol/L 07/25/2024 2:57 PM EDT [facility] Potassium, Bld 3.8 3.5 - 5.0 mmol/L 07/25/2024 2:57 PM EDT [facility] Chloride 99 98 - 109 mmol/L 07/25/2024 2:57 PM EDT [facility] CO2 28 22 - 32 mmol/L 07/25/2024 2:57 PM EDT [facility] Anion gap 11 5 - 15 mmol/L 07/25/2024 2:57 PM EDT [facility] BUN 27 5 - 27 mg/dL 07/25/2024 2:57 PM EDT [facility] Creatinine 1.30 0.60 - 1.30 mg/dL 07/25/2024 2:57 PM EDT [facility] Comment:METHOD TRACEABLE TO IDMS STANDARD Glucose 136(H) 65 - 99 mg/dL 07/25/2024 2:57 PM EDT [facility] Calcium 8.5 8.5 - 10.5 mg/dL 07/25/2024 2:57 PM EDT [facility] Total Protein 8.1(H) 6.0 - 8.0 g/dL 07/25/2024 2:57 PM EDT [facility] Albumin 4.8 3.2 - 5.3 g/dL 07/25/2024 2:57 PM EDT [facility] Alkaline Phosphatase 61 39 - 130 U/L 07/25/2024 2:57 PM EDT [facility] AST 36 0 - 41 U/L 07/25/2024 2:57 PM EDT [facility] ALT 35 0 - 40 U/L 07/25/2024 2:57 PM EDT [facility] Total bilirubin 1.1 0.3 - 1.2 mg/dL 07/25/2024 2:57 PM EDT [facility] LAB eGFR (CKD-EPI)non-rac e dependent 58(L) >59 ml/min/1.7 3sq.m 07/25/2024 2:57 PM EDT [facility] Comment: Reported eGFR is based on the CKD-EPI 2020 equation that does not use a race coefficient. PLASMA 07/25/2024 9:13 AM EDT 07/25/2024 9:14 AM EDT us Nasima Higginbotham MD LAB BLOOD ORDERABLES Final Resul t [place] [facility] [address] [place] [address] * X-ray chest 2 views (07/18/2024 5:51 AM EDT) Anatomical Region Laterality Modality Body, Chest N/A Computed Radiogr aphy 07/18/2024 5:58 AM EDT Addenda Addendum by Marshall Rogers MD on 07/18/2024 2:50 PM EDT *ADDENDUM*IMPRESSION: * Left-sided dual-lead pacemaker in place with right atrial and ventricular leads intact without discontinuity. * Low lung volumes with hypoventilatory changes including bibasilar atelectasis. Background of pulmonary vascular congestion/edema. * No significant pleural effusions. No pneumothorax. Finalized by Marshall Rogers MD on 07/18/2024 2:50 PM Narrative 07/18/2024 5:59 AM EDT CHEST 2 VIEWS HISTORY: Lead placement COMPARISON: 07/17/2024 IMPRESSION: * Left-sided dual-lead pacemaker in place with right atrial and ventricular leads renal lesions discontinuity. * Low lung volumes with hypoventilatory changes including bibasilar atelectasis. Background of pulmonary vascular congestion/edema. * No significant pleural effusions. No pneumothorax. Finalized by Marshall Rogers MD on 07/18/2024 5:59 AM Procedure Note Marshall Rogers MD - 07/18/2024 CHEST 2 VIEWS HISTORY: Lead placement COMPARISON: 07/17/2024 IMPRESSION: * Left-sided dual-lead pacemaker in place with right atrial andventricular leads renal lesions discontinuity. * Low lung volumes with hypoventilatory changes including bibasilaratelectasis. Background of pulmonary vascular congestion/edema. * No significant pleural effusions. No pneumothorax. Finalized by Marshall Rogers MD on 07/18/2024 5:59 AM Elliott Luna MD [facility] ORDERABLE S Edited Result - Final * (ABNORMAL) Ionized calcium (07/18/2024 5:20 AM EDT) Only the most recent of2 resultswithin the time period is included. Calcium, ionized 4.1(L) 4.5 - 5.3 mg/dL 07/18/2024 6:16 AM EDT [facility] PLASMA 07/18/2024 5:20 AM EDT 07/18/2024 5:54 AM EDT us Nasima Higginbotham MD LAB BLOOD ORDERABLES Final Resul t FISH [facility] [address] [place] [address] * (ABNORMAL) CBC auto differential (07/18/2024 3:00 AM EDT) Only the most recent of3 resultswithin the time period is included. White Blood Cells 6.7 4.0 - 11.0 X10E9/L 07/18/2024 4:06 AM EDT [facility] RBC count 3.74(L) 4.10 - 5.70 X10E12/L 07/18/2024 4:06 AM EDT [facility] Hemoglobin 11.7(L) 13.0 - 17.0 g/dL 07/18/2024 4:06 AM EDT [facility] Hematocrit 33.7(L) 39 - 49 % 07/18/2024 4:06 AM EDT [facility] MCV 90 80 - 100 fL 07/18/2024 4:06 AM EDT [facility] MCH 31.3 27 - 34 pg 07/18/2024 4:06 AM EDT [facility] MCHC 34.8 32 - 36 g/dL 07/18/2024 4:06 AM EDT [facility] RDW 14.3 11.5 - 15.0 % 07/18/2024 4:06 AM EDT [facility] Platelets 136(L) 150 - 450 X10E9/L 07/18/2024 4:06 AM EDT [facility] MPV 9.9 7 - 12 fL 07/18/2024 4:06 AM EDT [facility] % neutrophils 43.6 % 07/18/2024 4:06 AM EDT [facility] % lymphocytes 36.5 % 07/18/2024 4:06 AM EDT [facility] % monocytes 12.7 % 07/18/2024 4:06 AM EDT [facility] % eosinophils 5.2 % 07/18/2024 4:06 AM EDT [facility] % Basophils 2.0 % 07/18/2024 4:06 AM EDT [facility] Neutrophils Absolute (A) 2.9 1.5 - 6.6 X10E9/L 07/18/2024 4:06 AM EDT [facility] Lymphocytes Absolute 2.4 1.0 - 3.5 X10E9/L 07/18/2024 4:06 AM EDT [facility] Monocytes Absolute 0.8 0 - 0.9 X10E9/L 07/18/2024 4:06 AM EDT [facility] Eosinophils Absolute 0.3 0.0 - 0.4 X10E9/L 07/18/2024 4:06 AM EDT [facility] Basophils Absolute 0.1 0.0 - 0.2 X10E9/L 07/18/2024 4:06 AM EDT [facility] Blood / Unknown 07/18/2024 3 :00 AM EDT 07/18/2024 3:47 AM EDT us Nasima Higginbotham MD LAB BLOOD ORDERABLES Final Resul t FISH [facility] [address] [place] [address] * (ABNORMAL) Iron and TIBC (07/18/2024 3:00 AM EDT) Iron 49(L) 50 - 212 ug/dL 07/18/2024 9:03 AM EDT [facility] Tibc-calc only do not order 349 250 - 425 ug/dL 07/18/2024 9:03 AM EDT [facility] Iron Saturation 14(L) 20 - 50 % SATURATION 07/18/2024 9:03 AM EDT [facility] PLASMA 07/18/2024 3:00 AM EDT 07/18/2024 3:47 AM EDT us Nasima Higginbotham MD LAB BLOOD ORDERABLES Final Resul t Performing Organization Address City/[facility] Co de Phone Number [facility] [address] [facility] [address] [place] [address] * Magnesium (07/18/2024 3:00 AM EDT) Only the most recent of4 resultswithin the time period is included. Magnesium 2.1 1.8 - 2.6 mg/dL 07/18/2024 4:29 AM EDT [facility] PLASMA 07/18/2024 3:00 AM EDT 07/18/2024 3:47 AM EDT us Elliott Luna MD LAB BLOOD ORDERABLES Final Resul t Performing Organization Address [facility] Co de Phone Number [facility] [address] [place] [address], [address] [place] [id number] * Folate (07/18/2024 3:00 AM EDT) Folate 22.0 >5.8 ng/mL 07/18/2024 9:25 AM EDT [facility] Comment:NEW REFERENCE RANGE PLASMA 07/18/2024 3:00 AM EDT 07/18/2024 3:47 AM EDT us Nasima Higginbotham MD LAB BLOOD ORDERABLES Final Resul t Performing Organization Address City/[facility] Co de Phone Number [facility] [address] [place] [address] * Ferritin (07/18/2024 3:00 AM EDT) Ferritin 165 24 - 336 ng/mL 07/18/2024 9:21 AM EDT [facility] PLASMA 07/18/2024 3:00 AM EDT 07/18/2024 3:47 AM EDT us Nasima Higginbotham MD LAB BLOOD ORDERABLES Final Resul t [facility] [address] [place] [address] * Vitamin B12 (07/18/2024 3:00 AM EDT) Vitamin B-12 602 180 - 914 pg/mL 07/18/2024 9:26 AM EDT [facility] Serum / Unknown 07/18/2024 3 :00 AM EDT 07/18/2024 3:47 AM EDT Nasima Higginbotham MD LAB BLOOD ORDERABLES Final Resul t Performing Organization Address [facility]/ZIP Co de Phone Number [facility] [address] [place] [address] * X-ray chest 1 view (07/17/2024 10:26 AM EDT) Anatomical Region Laterality Modality Body, Chest N/A Computed Radiogr aphy 07/17/2024 10:3 0 AM EDT Narrative 07/17/2024 10:31 AM EDT History: Rule out pneumothorax. Exam/Technique: AP chest upright Comparison: 01/06/2004. Findings: Pacemaker wire. Congested lungs. Patchy airspace disease may be developing although this may be due to expiratory view. Pneumothorax is not detected. IMPRESSION: No evidence of pneumothorax post pacemaker placement. Finalized by Jared Bustillos MD on 07/17/2024 10:31 AM Procedure Note Jared Bustillos MD - 07/17/2024 History: Rule out pneumothorax. Exam/Technique: AP chest upright Comparison: 01/06/2004. Findings: Pacemaker wire. Congested lungs. Patchy airspace disease may be developing although this may be due toexpiratory view. Pneumothorax is not detected. IMPRESSION: No evidence of pneumothorax post pacemaker placement. Finalized by Jared Bustillos MD on 07/17/2024 10:31 AM Elliott Luna MD IMG DIAGNOSTIC IMAGING ORDERABLE S Final Result * ECG 12 lead (07/17/2024 10:01 AM EDT) Only the most recent of3 resultswithin the time period is included. 07/17/2024 10:0 1 AM EDT Narrative [facility] - 07/17/2024 10:02 AM EDT Elliott Luna MD ECG ORDERABLES Final Result [facility] * EP INVASIVE (07/17/2024 9:47 AM EDT) Narrative [facility]O - 07/17/2024 5:24 PM EDT Table formatting from the original result was not included. Device Implantation Procedure Summary Primary surgeon: Elliott Luna MD Loom Starter: none Pre-Operative Diagnosis: Complete AV block. Procedure Description: - right femoral transvenous temporary pacing wire placement and removal. - Dual chamber pacemaker implant with left bundle-branch pacing lead. - moderate sedation. - ultrasound-guided venous access. Estimated Blood Loss: none Specimens Removed: none Patient Condition prior to leaving OR/Procedural Area: stable After informed consent was obtained from the patient, the patient was brought to the EP laboratory in a fasting state. Moderate sedation was provided. Details are below. First, right groin was prepped and draped in usual sterile fashion. Right femoral venous access was obtained using ultrasound guidance as well as modified Seldinger technique. A guidewire was introduced into central circulation. Six Jordanian sheath was advanced into central circulation over the guidewire. A balloon tipped catheter was advanced into the right ventricle. Balloon was deflated. Appropriate pacing threshold was obtained. The catheter was secured to right thigh using Tegaderm. Temporary pacemaker was set at VVI 30. IV antibiotics were administered prior to the first incision. Left axillary venogram was performed to guide axillary vein access. Local anesthesia was applied to the surgical site. A #15 blade was used to incise infraclavicular region. Blunt and bovie dissection was carried out to the level of the fascia, and a deep subcutaneous pocket (superficial to the pectoralis major fascia) was created inferiorly and medially to house the generator. Device information: Details below. Two separate left axillary vein access was obtained by direct axillary vein puncture under fluoroscopic guidance. Two guidewires were introduced into central circulation. 9 Jordanian short sheath was placed into central circulation over guidewire. CPS 3D psychometric examiner sheath was advanced into right ventricle over a Glidewire. Glidewire and dilator were removed. Pacing lead was advanced through the sheath. The sheath and the lead was placed in right ventricular mid septum.. Pacing in this location showed notch in the nahomy of the QRS in lead V1. The lead was screwed in this location by rotating the lead clockwise. The lead was screwed deep into the septum until pacing revealed qR morphology in lead V1. This was consistent with capture of left bundle branch. We were able to obtain excellent threshold in this location. Sensing was good as well. Therefore we decided to take this location. The sheath was removed with a slitter. Short sheath was peeled. Lead location and electrical parameters were stable after sheath were removed. Lead was secured to pectoral fascia using 0 silk suture x2. - V6RWPT: 56 milliseconds - V1-V6 interpeak difference: 53 milliseconds. - paced QRS: 110 milliseconds. 7 Jordanian sheath was advanced into central circulation over guidewire. The right atrial pacing lead was advanced into right atrium using straight stylet. Using curved stylet, the lead was implanted in right atrial appendage. Appropriate pacing threshold and sensing was obtained. There was no diaphragmatic stimulation at maximum output. Short sheath was peeled. The lead was secured to pectoral fascia using 0 silk suture x2. The leads were connected to the device. The pocket was irrigated with antibiotic solution. The device was inserted into the pocket. The device was secured to prepectoral fascia using 0 silk sutures. Surgiflo was injected into the pocket for hemostasis. The pocket was closed with running 2-O Vicryl sutures followed by a running 3-0 Vicryl and subcuticular 4-O Vicryl suture. Steri-strips and Aquacel dressing were placed on the wound. After permanent pacemaker implant, temporary pacing catheter was removed under fluoroscopic guidance. Sheath was removed as well and hemostasis was achieved using manual compression. The patient tolerated the procedure well with no complications. Fluoroscopy: Fluoroscopy time: 6.1 minutes Fluoroscopy dose: 46 mGy. Device details: Implant Name Type Inv. Item Serial No. Environmental Engineering Professor Lot No. LRB No. Used Action LEAD PCNG 65CM ULTIPACE MR CONDITIONAL BP STRD CORBIN PU PTFE - [id number] - [id number] Implant Lead LEAD PCNG 65CM ULTIPACE MR CONDITIONAL BP STRD CORBIN PU PTFE [id number] [facility] [employer] [employer] [facility] MGT Left 1 Implanted LEAD PCNG 52CM ULTIPACE MR CONDITIONAL BP STRD CORBIN PU PTFE - [id number] - [id number] Implant Lead LEAD PCNG 52CM ULTIPACE MR CONDITIONAL BP STRD CORBIN PU PTFE [id number] [facility] [place] [employer] MGT Left 1 Implanted PACEMAKER THK6MM ASSURITY MRI 2 CHMBR IS-1 CNCT [id number] CRD - [id number] - [id number] Other Implant PACEMAKER THK6MM ASSURITY MRI 2 CHMBR IS-1 CNCT [id number] CRD [id number] [facility] [place] [facility] [employer] MGT Left 1 Implanted Programming and lead parameters: DDD, lower rate: 60, upper tracking rate: 130 RA lead: measured P wave 4.1 mV, impedance 580 Ohms, threshold 0.5 volts at 0.4 milliseconds. RV lead: Pacing impedance of 710 Ohms, threshold 0.75 volts at 0.4 milliseconds. Plan: 1. Central venous filling pressures seemed elevated. Will give a dose of IV Lasix 40 mg once. 2. Chest x-ray stat to rule out pneumothorax. 3. Chest x-ray PA lateral in a.m.. 4. Device interrogation in a.m.. 5. Cefazolin 2 g every 8 hours for 3 doses. 6. No heparin products for next 48 hours. us Elliott Luna MD CV ELECTROPHYSIOLOGY ORDERABLES Final Result [facility] * Lactate (07/16/2024 7:40 PM EDT) Lactate 1.2 0.4 - 2.0 mmol/L 07/16/2024 8:43 PM EDT [facility] PLASMA 07/16/2024 7:40 PM EDT 07/16/2024 8:12 PM EDT Alvino Pring[employer] LAB BLOOD ORDERABLES Ashtyn l Result Performing Organization Address City/[facility]/ZIP Co de Phone Number [facility] [address] [place] [address] * Potassium (07/16/2024 7:40 PM EDT) [facility] Potassium, Bld 3.7 3.5 - 5.0 mmol/L 07/16/2024 9:38 PM EDT [facility] PLASMA 07/16/2024 7:40 PM EDT 07/16/2024 8:12 PM EDT Alvino Pino Vicenta DO LAB BLOOD ORDERABLES Ashtyn l Result Performing Organization Address [facility] Co de Phone Number [facility] [address] [place] [address] * Echo complete W/ contrast (07/16/2024 6:57 PM EDT) [facility] LVOT stroke volume 71.94 ml XCELERA LV Systolic Volume 32.90 mL XCELERA EF 72 % XCELERA FS 41 28 - 44 % XCELERA LV Diastolic Volume 118.00 mL XCELERA LVIDd 3.90 5.47 - 7.60 cm XCELERA LVIDs 2.30 3.20 - 4.85 cm XCELERA IVS 1.00 0.6 - 1.1 cm XCELERA PW 1.00 0.6 - 1.1 cm [facility]CELERA LVOT diameter 2.00 cm XCELERA TDI 9.03 cm/s XCELERA MV TDI E' (medial) 6.42 cm/s XCELERA E/A ratio 1.57 XCELERA E wave deceleration time 289.00 msec XCELERA MV Peak E Shad 174.00 cm/s XCELERA MV Peak A Shad 111.00 cm/s XCELERA LA size 4.20 cm XCELERA TAPSE 1.48 cm XCELERA Est. RA pressure 3 mmHg XCELERA AV peak shad 147.00 cm/s XCELERA LVOT peak shad 1.08 m/s XCELERA AV VTI 28.90 cm [facility]A LVOT peak VTI 22.90 cm XCELERA AV mean gradient 4.00 mmHg XCELERA AV peak gradient 8.64 mmHg XCELERA AV valve area 2.49 XCELERA Valve area - Index 1.2 XCELERA MV pressure 1/2 time 85.00 ms XCELERA MV valve area p 1/2 method 2.59 cm2 XCELERA TR Peak Shad 3.6 m/s XCELERA TR peak gradient 51.27 mmHg XCELERA LV RWT 2D 51.28 [facility]EL[facility]A Echo EF Estimated 72 % [facility] AV Velocity Ratio 0.79 [facility]CELERA Left Ventricle Mass 122.42589 [id number] 7 g XCELERA Interventricular Septum Diastolic Thickness by 2D 10 cm XCELERA ZLVIDS -4.26 XCELERA ZLVIDD -5.03 XCELERA Anatomical Region Laterality Modality Chest N/A Ultrasound Narrative 07/16/2024 7:26 PM EDT Left Ventricle: Left ventricle appears normal in size. Systolic function is hyperdynamic with an ejection fraction over 70%. The quantitative EF by 2D Bowie biplane is 72%. Right Ventricle: Right ventricular size is mildly dilated. Systolic function is mildly reduced. Pulmonic Valve: The pulmonic valve was not well visualized. There is no regurgitation. There is mild stenosis. Tricuspid Valve: There is trace regurgitation. There is no evidence of tricuspid valve stenosis. Insufficient regurgitant jet to assess right ventricular systolic pressure. Left Ventricle Left ventricle appears normal in size. There is borderline increased wall thickness/hypertrophy. Systolic function is hyperdynamic with an ejection fraction over 70%. The quantitative EF by 2D Bowie biplane is 72%. No segmental wall motion abnormalities. Lateral E' is 9.03 cm/s. Medial E' is 6.42 cm/s. Right Ventricle Right ventricular size is mildly dilated. Systolic function is mildly reduced. Abnormal tricuspid annular plane systolic excursion. Left Atrium Left atrium is mildly dilated. Right Atrium Right atrium is normal in size. IVC/SVC IVC is not well visualized. Mitral Valve Mitral valve structure is normal. There is no regurgitation or stenosis. Tricuspid Valve Tricuspid valve appears to be normal. There is trace regurgitation. There is no evidence of tricuspid valve stenosis. Insufficient regurgitant jet to assess right ventricular systolic pressure. Aortic Valve The aortic valve is trileaflet. The leaflets are not thickened and exhibit normal excursion. There is no regurgitation or stenosis. Pulmonic Valve The pulmonic valve was not well visualized. There is no regurgitation. There is mild stenosis. Ascending Aorta The aortic root is normal in size. Pericardium There is no pericardial effusion. Study Details A complete echo was performed using complete 2D, color flow Doppler and spectral Doppler. During the study the apical, parasternal, subcostal and suprasternal views were captured. Definity study was performed. Overall the study quality was adequate. The study had technical difficulties. The study was difficult due to patient's unable to lay left lateral. Wall Scoring Baseline Score Index: 1.00 The left ventricular wall motion is globally hyperkinetic. us Uriel Lyons [employer]ST CONTR[employer] ANALYST[facility] CV ECHO ORDERABLES Fin al Result * Troponin I, High Sensitivity (07/16/2024 6:46 PM EDT) Only the most recent of2 resultswithin the time period is included. Pathologist [facility] Troponin I, High Sensitivity 19 <21 ng/L 07/16/2024 7:24 PM EDT [facility] Blood Serum / Unknown 07/16/2024 6 :46 PM EDT 07/16/2024 6:47 PM EDT us Nasima Higginbotham MD LAB BLOOD ORDERABLES Final Resul t [facility] [address] [place] [address] * Thyroid profile includes TSH FT4 (07/16/2024 6:46 PM EDT) [facility] TSH 1.96 0.49 - 4.67 uIU/mL 07/16/2024 7:34 PM EDT [facility] T4, free 0.89 0.61 - 1.60 ng/dL 07/16/2024 7:36 PM EDT [facility] PLASMA 07/16/2024 6:46 PM EDT 07/16/2024 6:47 PM EDT us Nasima Higginbotham MD LAB BLOOD ORDERABLES Final Resul t Performing Organization Address [facility]/ZIP Co de Phone Number [facility] [address], [address] [place] [address] * Phosphorus (07/16/2024 6:46 PM EDT) Phosphorus 4.2 2.4 - 4.9 mg/dL 07/16/2024 7:45 PM EDT [facility] Comment: SPECIMEN HEMOLYZED, RESULTS INCREASED SLIGHTLY HEMOLYZED PLASMA 07/16/2024 6:46 PM EDT 07/16/2024 6:47 PM EDT us Nasima Higginbotham MD LAB BLOOD ORDERABLES Final Resul t Performing Organization Address [facility] Co de Phone Number [facility] [address] [place] [address], [address] [place] [address] * (ABNORMAL) Bedside Glucose *Place/Obtain serum glucose if >500 per glucometer. (07/16/2024 5:38 PM EDT) Bedside glucose 157(H) 65 - 99 mg/dL 07/16/2024 5:39 PM EDT [facility] Blood / Unknown 07/16/2024 5 :38 PM EDT 07/16/2024 5:39 PM EDT us Elliott Luna MD POINT OF CARE TEST ORDERABLES Fi nal Result [employer] * Troponin I, High Sensitivity 1 Hour (07/16/2024 4:47 PM EDT) 1 Hour Trop I, High Sensitivity 18 <21 ng/L 07/16/2024 5:[address] [facility] Blood Serum / Unknown 07/16/2024 4 :47 PM EDT 07/16/2024 4:49 PM EDT Alvino Yadav LAB BLOOD ORDERABLES Ashtyn l Result [facility] [address] [place] [address] * (ABNORMAL) Lactate w/ Reflex (07/16/2024 3:50 PM EDT) Lactate w/ Reflex 2.7(H) 0.4 - 2.0 mmol/L 07/16/2024 4:31 PM EDT [facility] Blood (PLASMA) 07/16/2024 3: 50 PM EDT 07/16/2024 4:04 PM EDT Alvino Yadav [facility] BLOOD ORDERABLES Edit ed Result - Final [facility] [address] [place] [address] * APTT (07/16/2024 3:50 PM EDT) aPTT 27 26 - 37 sec 07/16/2024 4:28 PM EDT [facility] Blood (PLASMA) 07/16/2024 3: 50 PM EDT 07/16/2024 4:04 PM EDT Alvino Yadav LAB BLOOD ORDERABLES Ashtyn l Result [facility] [address] [facility] [place] [address] * Protime & INR (07/16/2024 3:50 PM EDT) Protime 11.8 9.8 - 13.2 sec 07/16/2024 4:28 PM EDT [facility] Inr 1.0 0.9 - 1.2 07/16/2024 4:28 PM EDT [facility] Blood (PLASMA) 07/16/2024 3: 50 PM EDT 07/16/2024 4:04 PM EDT Alvino Yadav DO LAB BLOOD ORDERABLES Ashtyn l Result [facility] [address] [facility] [place] [address] * Critical Care (07/16/2024 3:46 PM EDT) Alvino Wilson DO - 07/16/2024 3:46 PM EDT Alvino Yadav DO 07/23/2024 1:17 PM Critical Care Performed by: Alvino Yadav DO Authorized by: Alvino Yadav DO Critical care provider statement: Critical care time (minutes): 35 Critical care time was exclusive of: Separately billable procedures and treating other patients and teaching time Critical care was necessary to treat or prevent imminent or life-threatening deterioration of the following conditions: Cardiac failure Critical care was time spent personally by me on the following activities: Blood draw for specimens, development of treatment plan with patient or surrogate, discussions with consultants, evaluation of patient's response to treatment, examination of patient, interpretation of cardiac output measurements, obtaining history from patient or surrogate, ordering and performing treatments and interventions, ordering and review of laboratory studies, ordering and review of radiographic studies, pulse oximetry, re-evaluation of patient's condition and review of old charts I assumed direction of critical care for this patient from another provider in my specialty: no Care discussed with: admitting provider us Alvino Yadav DO PROCEDURE/MINOR SURGICAL ORDERABLES Final Result * (ABNORMAL) CBC without diff (07/16/2024 8:43 AM EDT) White Blood Cells 8.4 4.0 - 11.0 X10E9/L 07/16/2024 1:22 PM EDT [facility] RBC count 4.16 4.10 - 5.70 X10E12/L 07/16/2024 1:22 PM EDT [facility] Hemoglobin 12.5(L) 13.0 - 17.0 g/dL 07/16/2024 1:22 PM EDT [facility] Hematocrit 37.7(L) 39 - 49 % 07/16/2024 1:22 PM EDT [facility] [facility] MCV 91 80 - 100 fL 07/16/2024 1:22 PM EDT [facility] MCH 30.1 27 - 34 pg 07/16/2024 1:22 PM EDT [facility] MCHC 33.1 32 - 36 g/dL 07/16/2024 1:22 PM EDT [facility] RDW 14.1 11.5 - 15.0 % 07/16/2024 1:22 PM EDT [facility] Platelets 140(L) 150 - 450 X10E9/L 07/16/2024 1:22 PM EDT [facility] MPV 10.4 7 - 12 fL 07/16/2024 1:22 PM EDT [facility] Blood / Unknown 07/16/2024 8 :43 AM EDT 07/16/2024 8:46 AM EDT us Carlos Enrique See MD LAB BLOOD ORDERABLES Final R esult [employer] [facility] [address] [place] [address] * (ABNORMAL) Basic Metabolic Panel (07/16/2024 8:43 AM EDT) Sodium 141 134 - 146 mmol/L 07/16/2024 2:27 PM EDT [facility] Potassium, Bld 3.6 3.5 - 5.0 mmol/L 07/16/2024 2:27 PM EDT [facility] Chloride 105 98 - 109 mmol/L 07/16/2024 2:27 PM EDT [facility] CO2 27 22 - 32 mmol/L 07/16/2024 2:27 PM EDT [facility] Anion gap 9 5 - 15 mmol/L 07/16/2024 2:27 PM EDT [facility] BUN 14 5 - 27 mg/dL 07/16/2024 2:27 PM EDT [facility] Creatinine 1.39(H) 0.60 - 1.30 mg/dL 07/16/2024 2:27 PM EDT [facility] Comment:METHOD TRACEABLE TO IDMS STANDARD Glucose 165(H) 65 - 99 mg/dL 07/16/2024 2:27 PM EDT [facility] Calcium 8.4(L) 8.5 - 10.5 mg/dL 07/16/2024 2:27 PM EDT [facility] eGFR (CKD-EPI)non-ra ce dependent 54(L) >59 ml/min/1.7 3sq.m 07/16/2024 2:27 PM EDT [facility] Comment: Reported eGFR is based on the CKD-EPI 2020 equation that does not use a race coefficient. PLASMA 07/16/2024 8:43 AM EDT 07/16/2024 8:46 AM EDT us Carlos Enrique See MD LAB BLOOD ORDERABLES Final R esult [employer] [facility] [address] [place] [address] from Last 3 Months Insurance MEDICARE [employer] Advance Directives Documents on File Type Date Recorded Patient Alumni Coordinator Expl anation Durable Power of Wildlife Removal Specialist 07/23/2024 10:19 AM Durable Power of Wildlife Removal Specialist 10/02/2022 9:29 AM Advance Directive 11/25/2021 9:10 AM Durable Power of Wildlife Removal Specialist 05/05/2019 2:57 PM * Full Code (Latest Code Status on File) Date Activated Date Inactivated Comments 07/16/2024 5:56 PM 07/18/2024 4:56 PM Care Teams Manager Developmental Relationship Specialty Start Date End Date Taras Tamayo MD PCP - General Family Medicine 09/18/24
--- OUTSIDE RECORDS SUMMARY | 2024-10-11 14:08 | XMS_ITS | Encounter Summary ---
Author Organization [facility] Address [id number] [address] [place] [address] Care Team Providers Care Solar Sales Associate Name Role Phone Taras Tamayo MD Primary Care Provider [phone] Encounter Details Date Type Department Care Team (Late st Contact Info) Description 06/08/2021 [facility] [address] [place] [address] Le Haywood RMA Social History Tobacco Use Types Packs/Day Years [...] have Coronavirus / COVID-19? No / Unsure 06/03/2021 9:04 AM EST documented as of this encounter Miscellaneous Notes * Telephone Encounter - FAZAL Carpenter - 06/08/2021 12:36 PM EST ----- Message from Stephani Rob PA-C sent at 06/08/2021 9:44 AM EST ----- Refer pt to tea bag machine tender, a referral will be put in pt's chart. * Telephone Encounter - Le FAZAL Haywood - 06/08/2021 12:36 PM EST Spoke with patient and informed him that Stephani will be putting in a referral to see an tea bag machine tender. documented in this encounter Plan of Treatment Upcoming Encounters Date Type Department Care Team (Late st Contact Info) Description 03/06/2025 9:00 AM EST Clinical Support [facility] [address] [place] [address] 03/06/2025 9:30 AM EST Office Visit [facility] [address] [place] [address] Piedad Ulloa MD [address] [place] [address] Carlos Enrique See MD [address] [place] [address] documented as of this encounter Visit Diagnoses Not on filedocumented in this encounter Care Teams Solar Sales Associate Relationship Specialty Start Date End Date Taras Tamayo MD PCP - General Family Medicine 09/18/24 documented as of this encounter
--- OUTSIDE RECORDS SUMMARY | 2024-10-11 14:08 | XMS_ITS | Encounter Summary ---
Author Organization [facility] Address [address] [place] [address] Care Team Providers Care Talent Partner Name Role Phone Taras Tamayo MD Primary Care Provider [phone] Taras Tamayo MD Primary Care Provider [phone] Taras Tamayo MD Unavailable Encounter Details Date Type Department Care Team (Late Contact Info) Description 03/08/2023 Clinisync Result Encounter [facility] External Department Unsolicited [...] Visit [facility] [address] [place] [address] Taras Tamayo MD [address] [place] [address] documented as of this encounter Procedures Procedure Name Priority Date/Time Associated Diagnosis Comments XR FOOT RT MIN 3V 03/08/2023 9:3 1 AM EST documented in this encounter Results * XR FOOT RT MIN 3V (03/08/2023 9:31 AM EST) Anatomical Region Laterality Modality Other 03/08/2023 9:31 AM EST Narrative 03/08/2023 9:34 [place] [address] XRay Report Signed Patient: MORRIS FLOYD MR#: [id number] : 1950 Acct:[id number] Age/Sex: 73 / M ADM Date: 03/07/23 Loc: SURGOUT Attending Dr: Red Yanes D.P.M. Ordering Physician: Marshall Kim D.P.M. Date of Service: 03/07/23 Procedure(s): XR foot RT min 3V Accession Number(s): [id number] cc: Marshall Kim D.P.M.; Taras Tamayo M.D. [facility] [place] [address] Patient Name: MORRIS FLOYD MRN: [id number] date: 1950 Sex: M Assigned Patient Location: [facility] Current Patient Location: Accession/Order Number: [id number] Exam Date: 03/07/2023 11:45 Report Date: 03/08/2023 09:31 At the request of: MARSHALL KIM Procedure: XR foot RT min 3V EXAM: XR foot RT min 3V HISTORY: Postop xr PACU COMPARISON: 12/29/2022. TECHNIQUE: Routine views of the XR foot RT min 3V FINDINGS/ XR/XR foot RT min 3V IMPRESSION: 1. No acute fractures. Osteotomy along the lateral aspect of the fifth metatarsal head/neck. 2. Advanced atherosclerosis. 3. Mild to moderate first MTP and mild scattered interphalangeal degeneration. Electronically authenticated by: LAUREANO SUNSHINE Date: 03/08/2023 09:31 Dictated By: Laureano Sunshine Signed By: 03/08/23933 DD/ 0 TD/TT: Glove Presser: Procedure Note Radiology, Radiologist, MD - 03/08/2023 [facility] [place] [id number] XRay Report Signed Patient: MORRIS FLOYD AMR#: [id number] : 1950cct:[id number] Age/Sex: 73 / MADM Date: 03/07/23 Loc: SURGOUT Attending Dr: Red Yanes D.P.M. Ordering Physician: Marshall Kim D.P.M. Date of Service: 03/07/23 Procedure(s): XR foot RT min 3V Accession Number(s): [id number] cc: Marshall Kim D.P.M.; Taras Tamayo M.D. [place] [address] Patient Name: MORRIS FLOYD MRN: [facility]:[id number] date: 1950 Sex: M Assigned Patient Location: [facility] Current Patient Location: Accession/Order Number: [id number] Exam Date: 03/07/2023 11:45 Report Date: 03/08/2023 09:31 At the request of: MARSHALL KIM Procedure: XR foot RT min 3V EXAM: XR foot RT min 3V HISTORY: Postop xr PACU COMPARISON: 12/29/2022. TECHNIQUE: Routine views of the XR foot RT min 3V FINDINGS/ XR/XR foot RT min 3V IMPRESSION: 1. No acute fractures. Osteotomy along the lateral aspect of the fifth metatarsal head/neck. 2. Advanced atherosclerosis. 3. Mild to moderate first MTP and mild scattered interphalangealdegeneration. Electronically authenticated by: LAUREANO SUNSHINE Date: 03/08/2023 09:31 Dictated By: Laureano Sunshine Signed By:03/08/23933 DD/ 0 TD/TT: Glove Presser: us Generic External Data Provider [facility] Final Result documented in this encounter Visit Diagnoses Not on filedocumented in this encounter Care Teams Talent Partner Relationship Specialty Start Date End Date Taras Tamayo MD PCP - General Family Medicine 09/29/22 08/23/23 Taras Tamayo MD [address] [place] [address] PCP - General Family Medicine 08/24/23 Taras Tamayo MD [address] [place] [address] PCP - ACO Reach 05/11/24 documented as of this encounter
--- OUTSIDE RECORDS SUMMARY | 2024-10-11 14:08 | XMS_ITS | Encounter Summary ---
Author Organization [employer] [facility] Address [id number] [address] [place] [address] Care Team Providers Care Process Mechanic Name Role Phone Taras Tamayo MD Primary Care Provider [phone] Encounter Details Date Type Department Care Team (Latest Contact Info) Description 01/19/2022 Orders Only [facility] [address] [place] [address] Ciara Jang RN Hypercholesterolemia (Primary Dx) Social History Tobacco Use Types Packs/Day Years [...] have Coronavirus / COVID-19? No / Unsure 01/18/2022 9:39 AM EDT documented as of this encounter Plan of Treatment Upcoming Encounters Date Type Department Care Team (Late st Contact Info) Description 03/06/2025 9:00 AM EST Clinical Support [facility] [address] [place] [address] 03/06/2025 9:30 AM EST Office Visit [facility] [address] [place] [address] Piedad Ulloa MD [address] [place] [address] Carlos Enrique See MD [address] [place] [address] documented as of this encounter Visit Diagnoses Diagnosis Hypercholesterolemia- Primary Pure hypercholesterolemia documented in this encounter Care Teams Process Mechanic Relationship Specialty Start Date End Date Taras Tamayo MD PCP - General Family Medicine 09/18/24 documented as of this encounter
--- OUTSIDE RECORDS SUMMARY | 2024-10-11 14:08 | XMS_ITS | Encounter Summary ---
Author Organization [facility] Address [id number] [address] [place] [address] Care Team Providers Care Real Estate Marketing Coordinator Name Role Phone Taras Tamayo MD Primary Care Provider [phone] Encounter Details Date Type Department Care Team (Late Contact Info) Description 10/21/2021 Treatment [facility] - Cardiovascular [address] [place] [address] Barb Knight RN Social History Tobacco Use Types Packs/Day [...] Description 03/06/2025 9:00 AM EST Clinical Support [facility] Cardiology [address] [address] 03/06/2025 9:30 AM EST Office Visit [facility] [address] [place] [address] Piedad Ulloa MD [address] [place] [address] Carlos Enrique See MD [address] [place] [address] documented as of this encounter Visit Diagnoses Not on filedocumented in this encounter Care Teams Real Estate Marketing Coordinator Relationship Specialty Start Date End Date Taras Tamayo MD PCP - General Family Medicine 09/18/24 documented as of this encounter
--- OUTSIDE RECORDS SUMMARY | 2024-10-11 14:08 | XMS_ITS | Encounter Summary ---
Author Organization [facility] [employer] [facility] tem Address [id number] [address] [place] [address] Care Team Providers Care Geometry Tutor Name Role Phone Taras Tamayo MD Primary Care Provider [phone] Encounter Details Date Type Department Care Team (Late st Contact Info) Description 01/07/2023 Telephone [facility] [address] [place] [phone] Rocio Keyes CNA Social History Tobacco Use Types Packs/Day Years [...] got money to buy more. Never True 12/28/2022 Within the past 12 months th e food we bought just didn't last and we didn't have money to get more. Never True 12/28/2022 Purpose - Life Answer Date Recorded Purpose and direction in life Unknown Sex and Gender Information Value Date Recorded Sex Assigned at Not on file Legal Sex Male 8:40 PM EDT Gender Identity Not on file Sexual Orientation Straight 10/22/2021 3: 18 PM EDT documented as of this encounter Plan of Treatment Upcoming Encounters Date Type Department Care Team (Late Contact Info) Description 03/06/2025 9:00 AM EST [facility] [address] [place] [address] 03/06/2025 9:30 AM EST Office Visit [facility] [address] [place] [address] Piedad Ulloa MD [address] [place] [address] Carlos Enrique See MD [address] [place] [address] documented as of this encounter Visit Diagnoses Not on filedocumented in this encounter Care Teams Geometry Tutor Relationship Specialty Start Date End Date Taras Tamayo MD PCP - General Family Medicine 09/18/24 documented as of this encounter
--- OUTSIDE RECORDS SUMMARY | 2024-10-11 14:08 | XMS_ITS | Encounter Summary ---
Author Organization [facility] Address [id number] [address] [place] [address] Care Team Providers Care Office Manager Executive Assistant Name Role Phone Taras Tamayo MD Primary Care Provider [phone] Encounter Details Date Type Department Care Team (Late st Contact Info) Description 07/16/2024 Orders Only [facility] [address] [place] [phone] External, Scanning Provider Social History Tobacco Use Types Packs/Day Years Used Date Smoking Tobacco: Never Smokeless Tobacco: Never Alcohol Use Standard Drinks/Week Comments Yes 1 (1 standard drink = 0.6 oz pur e alcohol) 2-3 times per week [facility] Utilities Answer Date Recorded In the [...] PM EDT documented as of this encounter Functional Status * Audit-C Score Answer Date of Assessment Author 2 07/16/2024 5:19 PM EDT Leisa Rodriguez RN * Question Answer Date of Assessment Author Q1: How often do you have a drink containing alcohol? 2-4 times a month 07/16/2024 5:19 PM VIOLETAT Alvino Rodriguez RN Q2: How many drinks containing alcohol do you have on a typical day when you are drinking? 1 or 2 07/16/2024 5:19 PM VIOLETAT Alvino Rodriguez RN Q3: How often do you have six or more drinks on one occasion? Never 07/16/2024 5:19 PM EDT Alvino Rodriguez RN * Question Answer Date of Assessment Author Functional Status Independent 07/16/2024 5:12 PM EDT Leisa Rodriguez RN documented as of this encounter Mental Status * Question Answer Entry Date Author Overall Cognitive Status WFL 07/18/2024 8:28 AM EDT Sakina Barker, OT/L documented in this encounter Plan of Treatment Upcoming Encounters Date Type Department Care Team (Late st Contact Info) Description 03/06/2025 9:00 AM EST Clinical Support [facility] [address] [place] [address] 03/06/2025 9:30 AM EST Office Visit [facility] [address] [place] [address] Piedad Ulloa MD [address] [place] [address] Carlos Enrique See MD [address] [place] [address] documented as of this encounter Procedures Procedure Name Priority Date/Time Associated Diagnosis Comments EVENT MONITOR Routine 07/09/2024 3:11 PM EDT documented in this encounter Results * Event monitor (07/09/2024 3:11 PM EDT) Anatomical Region Laterality Modality Chest N/A Other us Scanning Provider External [facility] C[facility] SERVICES O RDERABLES Final Result documented in this encounter Visit Diagnoses Not on filedocumented in this encounter Additional Health Concerns Assessment Noted Time PHQ-9 Depression Total Score: 0 07/17/19 25 5:19 PM EDT documented as of this encounter Care Teams Office Manager Executive Assistant Relationship Specialty Start Date End Date Taras Tamayo MD PCP - General Family Medicine 09/18/24 documented as of this encounter
--- OUTSIDE RECORDS SUMMARY | 2024-10-11 14:08 | XMS_ITS | Encounter Summary ---
Author Organization [employer] Address [id number] [address] [place] [address] Care Team Providers Care Medical Billing Associate Name Role Phone Taras Tamayo MD Primary Care Provider [phone] Encounter Details Date Type Department Care Team (Latest Contact Info) Description 10/08/2024 Travel Social History Tobacco Use Types Packs/Day Years Used Date Smoking Tobacco: Never Smokeless Tobacco: Never Alcohol Use Standard Drinks/Week Comments Yes 1 (1 standard drink = 0.6 oz pur e alcohol) 2-3 times per week [facility] Utilities Answer Date Recorded In the past 12 months has [employer], gas, oil, or water company threatened [...] Cardiology [address] [place] [address] 03/06/2025 9:30 AM EST Office Visit [facility] [address] [place] [address] Piedad Ulloa MD [address] [place] [address] Carlos Enrique See MD [address] [place] [address] documented as of this encounter Visit Diagnoses Not on filedocumented in this encounter Additional Health Concerns Assessment Noted Time PHQ-9 Depression Total Score: 0 07/17/19 25 5:19 PM EDT documented as of this encounter Care Teams Medical Billing Associate Relationship Specialty Start Date End Date Taras Tamayo MD PCP - General Family Medicine 09/18/24 documented as of this encounter
--- OUTSIDE RECORDS SUMMARY | 2024-10-11 14:08 | XMS_ITS | Encounter Summary ---
Author Organization [facility] tem Address [id number] [address] [place] [address] Care Team Providers Care Sizer Machine Name Role Phone Taras Tamayo MD Primary Care Provider [phone] Reason for Visit * Auth/Cert Specialty Diagnoses / Procedures Referred By Silvia t Referred To Contact Diagnoses Unstable angina ([facility] [place] Procedures VA CATH PLMT L HRT & ARTS W/NJX & ANGIO IMG S&I VA CATH PLMT L HRT/ARTS/GRFTS WNJX & ANGIO IMG S&I Cardiac Invasive Coronary angiogram and left ventricular gram/pressure + graft/[place] Lucille Saenz MD [address] [place] [address] Phone: tel: fax: Referral ID Status Reason Start Date Expiration Date Visits Re quested Visits Authorized [id number] Encounter Details Date Type Department Care Team (Latest Contact Info) Description 07/30/2024 Hospital Encounter [facility] - Cardiac Cath [address] [place] [phone] Lucille Saenz MD [address] [place], [place] [id number] Unstable angina ([facility]) Social History Tobacco Use Types Packs/Day Years Used Date Smoking Tobacco: Never Smokeless Tobacco: Never Alcohol Use Standard Drinks/Week Comments Yes 1 (1 standard drink = 0.6 oz pur e alcohol) 2-3 times per week [facility] Utilities Answer Date Recorded In the [...] of Assessment Author 2 07/16/2024 5:19 PM Leisa Johnson RN * Question Answer Date of Assessment Author Q1: How often do you have a drink containing alcohol? 2-4 times a month 07/16/2024 5:19 PM Alvino Johnson RN Q2: How many drinks containing alcohol do you have on a typical day when you are drinking? 1 or 2 07/16/2024 5:19 PM EDT Alvino Rodriguez RN Q3: How often do you have six or more drinks on one occasion? Never 07/16/2024 5:19 PM EDT Alvino Rodriguez RN * Question Answer Date of Assessment Author Functional Status Independent 07/16/2024 5:12 PM EDT Leisa Rodriguez RN documented as of this encounter Mental Status * Question Answer Entry Date Author Overall Cognitive Status WFL 07/18/2024 8:28 AM EDT Sakina Barker A, OT/L documented in this encounter Plan of Treatment Upcoming Encounters Date Type Department Care Team (Late st Contact Info) Description 03/06/2025 9:00 AM EST Clinical Support [facility] [address] [place] [address] 03/06/2025 9:30 AM EST Office Visit [facility] [address] [place] [address] Piedad Ulloa MD [address] [place], [place] [phone] Carlos Enrique See MD [address] [place] [address] Scheduled Orders Name Type Priority Associated Diagnoses Orde r Schedule Cardiac Invasive Cardiac Cath Routine Unstable angina ([facility]) Once for 1 Occurrences starting 07/16/2024 until 07/16/2024 documented as of this encounter Visit Diagnoses Diagnosis Unstable angina (CMS-HCC)- Primary Intermediate coronary syndrome documented in this encounter Admitting Diagnoses Diagnosis Unstable angina (CMS-HCC) Intermediate coronary syndrome documented in this encounter Additional Health Concerns Assessment Noted Time PHQ-9 Depression Total Score: 0 07/17/19 25 5:19 PM EDT documented as of this encounter Care Teams Sizer Machine Relationship Specialty Start Date End Date Taras Tamayo MD PCP - General Family Medicine 09/18/24 documented as of this encounter
--- OUTSIDE RECORDS SUMMARY | 2024-10-11 14:08 | XMS_ITS | Encounter Summary ---
Author Organization [employer] Address [id number] [address] [place] [address] Care Team Providers Care General Manager Land Department Name Role Phone Taras Tamayo MD Primary Care Provider [phone] Encounter Details Date Type Department Care Team (Late st Contact Info) Description 08/30/2024 Orders Only [facility] [address] [place] [phone] Elliott Luna MD [address] [place] [address] Pacemaker - Flores Social History Tobacco Use Types Packs/Day Years Used Date Smoking Tobacco: Never Smokeless Tobacco: Never Alcohol Use Standard Drinks/Week Comments Yes 1 (1 standard drink = 0.6 oz pur e alcohol) 2-3 times per week [facility] Utilities Answer Date Recorded In the past 12 months has [employer], gas, oil, or water [employer] threatened to shut off services in your [...] Cardiology [address] [place] [address] 03/06/2025 9:30 AM EST Office Visit [facility] [address] [place] [address] Piedad Ulloa MD [address] [place] [address] Carlos Enrique See MD [address] [place] [address] documented as of this encounter Procedures Procedure Name Priority Date/Time Associated Diagnosis Comments DEVICE INTERROGATION Routine 08/29/2024 Pacemaker - Flores documented in this encounter Results * Device Interrogation (08/29/2024) Anatomical Region Laterality Modality Other us Elliott Luna MD CV CARDIAC SERVICES ORDERABLES F inal Result documented in this encounter Visit Diagnoses Diagnosis Pacemaker - Flores Cardiac pacemaker in situ documented in this encounter Additional Health Concerns Assessment Noted Time PHQ-9 Depression Total Score: 0 07/17/19 5:19 PM EDT documented as of this encounter Care Teams General Manager Land Department Relationship Specialty Start Date End Date Taras Tamayo MD PCP - General Family Medicine 09/18/24 documented as of this encounter
--- OUTSIDE RECORDS SUMMARY | 2024-10-11 14:08 | XMS_ITS | Clinical Summary ---
Author Organization [facility] Healthcare Address [address] [place] [address] Care Team Providers Care Highway Commissioner Name Role Phone Taras Tamayo MD Primary Care Provider [phone] Taras Tamayo MD Unavailable Allergies No known active allergies Medications isosorbide mononitrate ER (Imdur) 30 MG 24 hr tablet Take 30 mg by mouth in the morning. 4 Active aspirin 81 MG EC tablet Take 81 mg by mouth Daily Active atorvastatin (Lipitor) 80 MG tablet Take 80 mg by mouth Daily 5 Active empagliflozin (Jardiance) 10 MG Take 10 mg by mouth in the morning. 5 Active furosemide (Lasix) 40 MG tablet Take 40 mg by mouth in the morning and 40 mg in the evening. 5 Active metoprolol succinate XL (Toprol-XL) 25 MG 24 hr tablet Take 25 mg by mouth Daily 5 Active gabapentin (Neurontin) 300 MG capsuleIndications: Small fiber polyneuropathy TAKE 1 CAPSULE BY MOUTH EVERY MORNING, EVENING, AND EVERY NIGHT AT BEDTIME 90 capsule 2 5 Active Active Problems Problem Noted Date Diagnosed Date Medicare annual wellness visit, subsequent 05/22 Assessment & Plan (05/22/2024 11:39 AM EST): Reviewed labs. Discussed proper diet and regular aerobic exercise. Need aerobic exercise 5-6 days a week for 30 minutes at a time. Smaller portions and limit total calories. Colonoscopy every 10 years. Tetanus every 10 years. Advised not to smoke. Chronic venous stasis dermatitis 08/24/2023 Assessment & Plan (08/24/2023 10:22 AM EDT): Chronic redness and using compression. Refer to vein and body for evaluation. Encounter for long-term (current) use of medicat ions 08/24/2023 Screening PSA (prostate specific antigen) 2023 CAD in [place] artery 08/08/2023 Assessment & Plan (07/03/2024 1:42 PM EDT): Increased pain and follow with cardiology for testing. Assessment & Plan (02/13/2024 10:22 AM EST): No symptoms and follow with cardiology. Chronic bilateral low back pain with left-sided sciatica 08/08/2023 Chronic rhinosinusitis 08/08/2023 Assessment & Plan (07/03/2024 1:43 PM EDT): Symptoms improved and monitor. If worsen can refer to ENT. Assessment & Plan (05/22/2024 11:39 AM EST): Treat with augmentin x 30 days. Resume flonase daily. If no improvement will refer to ENT. Dyslipidemia 08/08/2023 Monoclonal gammopathies 08/08/2023 Peripheral arterial disease 08/08/2023 Assessment & Plan (08/24/2023 10:22 AM EDT): Check DEBBIE Porokeratosis 08/08/2023 Type 2 diabetes mellitus wit h hyperglycemia, without long-term current use of insulin 08/08/2023 Assessment & Plan (07/03/2024 1:43 PM EDT): Not checking BS and due for A1C. Stick to ADA diet and limit carbs. Assessment & Plan (02/13/2024 10:22 AM EST): Not checking BS and due for A1C. Stick to ADA diet and limit carbs. Small fiber polyneuropathy 08/08/2023 Assessment & Plan (07/03/2024 1:43 PM EDT): Pain stable and continue neurontin. Assessment & Plan (02/13/2024 10:22 AM EST): Pain stable and continue neurontin. Assessment & Plan (08/24/2023 10:23 AM EDT): Pain stable and continue neurontin. Tailor's bunion of both feet 08/08/2023 Venous insufficiency 08/08/2023 Assessment & Plan (02/13/2024 10:23 AM EST): Chronic redness and using compression. Elevated legs PRN. Assessment & Plan (08/24/2023 10:22 AM EDT): Chronic redness and using compression. Refer to vein and body for evaluation. Resolved Problems Problem Noted Date Diagnosed Date Resolved Date Acute non-recurrent pansinusitis 04/24/2024 05/22/2024 Assessment & Plan (04/24/2024 1:26 PM EST): Take antibiotics for 7 days. Use prednisone for inflammation. Use sudafed or other decongestants as needed. Use Robitussin or Robitussin-DM for cough. Can use afrin for congestion but no longer than 3 days. Can use Mucinex to bring up phlegm. Use Motrin or Tylenol as needed for fever, aches, or pains. Increase fluid intake and rest. Should improve over next 5-7 days and if no better or worse call for re- evaluation. Chronic right shoulder pain 08/08/2023 02/13/2024 Encounters Date Type Department Care Team Description 08/15/2024 Refill [facility] [address] [place] [address] Taras Tamayo MD Small fiber polyneuropathy 07/19/2024 Patient Outreach [facility] [address] [place] [address] Suha Buckner LPN from Last 3 Months Social History Tobacco Use Types Packs/Day Years Used Date Smoking Tobacco: Never Smokeless Tobacco: Never Tobacco Cessation:Counseling Given: Not Answered Social Connection and Isolat ion Panel [NHANES] Answer Date Recorded In a typical week, how many times do you talk on the phone with family, friends, or neighbors? Once a week 08/18/2023 How often do you get togethe r with friends or relatives? Three times a week 08/18/2023 How often do you attend chur ch or episcopal services? More than 4 times per year 08/18/2023 Do you belong to any clubs o r organizations such as orthodox groups, unions, fraternal or athletic groups, or [...] Recorded Patient Health Questionnaire-2 Score 2 05/22/2024 [facility] - [...] on file Sexual Orientation Not on file Last Filed Vital Signs Vital Sign Reading Time Taken Comments Blood Pressure 124/78 07/03/2024 1:15 PM EDT Pulse 67 07/03/2024 1:15 PM EDT Temperature 36.2 C (97.1 F) 07/03/2024 1:15 PM EDT Respiratory Rate 20 07/03/2024 1:15 PM EDT Oxygen Saturation 96% 07/03/2024 1:15 PM EDT Inhaled Oxygen Concentration - - Weight 94.8 kg (209 lb) 07/03/2024 1:15 PM EDT Height 170.2 cm (5' 7 ) 07/03/2024 1:15 PM EDT Body Mass Index 32.73 07/03/2024 1:15 PM EDT Plan of Treatment Upcoming Encounters Date Type Department Care Team (Late st Contact Info) Description 01/02/2025 10:00 AM EDT Office Visit [facility] [address] [place] [address] Taras Tamayo MD [address] [place] [address] Health Maintenance Due Date Last Done Comments Influenza Vaccine (#1) 2024 , 01/31/2023, 12/28/2021, Additional history exists Diabetes: Hemoglobin A1C 01/08/2025 025, 07/09/2024, 02/14/2024, Additional history exists Diabetes: Urine Protein Screening 02/13/2025 02/14/2024, 02/14/2024, 02/14/2024 Medicare Annual Wellness (AWV) 05/22/2025 05/22/2024 , 01/24/2015 Diabetes: Retinopathy Screening 02/26/2026 , 02/27/2024 Colonoscopy Discontinued 06/03/2014 Colorectal Cancer Screening Discontinued Pneumococcal Vaccine: 65+ Years Completed 03/23/2024, 09/28/2021, 02/09/2020 CT Colonography Discontinued FIT-DNA Discontinued FIT Discontinued FOBT Discontinued Sigmoidoscopy Discontinued Procedures Procedure Name Priority Date/Time Associated Diagnosis Comments HEMOGLOBIN A1C Routine 07/09/2024 9:27 AM EDT DIABETIC RETINOPATHY SCREENING - OU - BOTH EYES Routine 02/27/2024 1:09 PM EST MICROALBUMIN / CREATININE URINE RATIO Routine 02/14/2024 10:39 AM EST from Last 3 Months or Most Recently Relevant to Health Maintenance Results * (ABNORMAL) Hemoglobin A1c (07/09/2024 9:27 AM EDT) Pathologist [facility] HEMOGLOBIN A1C 7.0(H) 4.4 - 5.6 % [facility] Comment: NOTE ADA Guidelines Result HgbA1c Normal : less than 5.7 % Prediabetes : 5.7 % to 6.4 % Diabetes : > 6.4 % Use with caution in patients with abnormal hemoglobin variants as the half-life of red blood cells and in vivo glycation rates are affected. AVERAGE GLUCOSE 154 mg/dL [facility] Comment:[address]FORMED [address] [address] 07/09/2024 9:27 AM EDT 07/09/2024 9:29 AM EDT Taras Tamayo MD LAB BLOOD ORDERABLES Final Resul t [facility] * Diabetic Retinopathy Screening - OU - Both Eyes (02/27/2024 1:09 PM EST) Anatomical Region Laterality Modality Head Other Lluvia Ramírez MD OPHTH PHOTOGRAPHY Final Result * Microalbumin / creatinine urine ratio (02/14/2024 10:39 AM EST) MICROALBUMIN, URINE 0.7 0.0 - 1.9 mg/dL [facility] URINE CREAT 141.08 mg/dL [facility] ALB/CREAT RATIO 5.0 0.0 - 30.0 mg/g creat [facility] Comment:[address]MED [address], [place] [address] 02/14/2024 10:3 9 AM EST 02/14/2024 10:41 AM EST Taras Tamayo MD LAB URINE ORDERABLES Final Resul t Performing Organization Address City/[facility]/ZIP Co de Phone Number [facility] from Last 3 Months or Most Recently Relevant to Health Maintenance Insurance MEDICARE [employer] Care Teams Highway Commissioner Relationship Specialty Start Date End Date Taras Tamayo MD [address] [place] [id number] PCP - General Family Medicine 08/24/23 Taras Tamayo MD [address] [place] [address] PCP - ACO Reach 05/11/24
--- OUTSIDE RECORDS SUMMARY | 2024-10-11 14:08 | XMS_ITS | Encounter Summary ---
Author Organization [facility] Address [address] [place] [address] Care Team Providers Care Shell Mold Bonding Machine Operator Name Role Phone Taras Tamayo MD Primary Care Provider [phone] Taras Tamayo MD Primary Care Provider [phone] Taras Tamayo MD Unavailable Encounter Details Date Type Department Care Team (Late Contact Info) Description 03/29/2023 Orders Only [facility] [address] [place] [address] [place] Social History Tobacco Use Types Packs/Day Years [...] Office Visit [facility] [address] [place] [address] Taras Tamayo MD [address] [place] [address] documented as of this encounter Procedures Procedure Name Priority Date/Time Associated Diagnosis Comments XR FOOT 3+ VIEWS RIGHT Routine 03/07/2023 2:18 PM EST documented in this encounter Results * XR foot 3+ views right (03/07/2023 2:18 PM EST) Anatomical Region Laterality Modality Lower Extremities, Foot Right Radiogra phic Imaging us [facility] IMG XR PROCEDURES Final Resul t documented in this encounter Visit Diagnoses Not on filedocumented in this encounter Care Teams Shell Mold Bonding Machine Operator Relationship Specialty Start Date End Date Taras Tamayo MD PCP - General Family Medicine 09/29/22 08/23/23 Taras Tamayo MD [address] [place] [address] PCP - General Family Medicine 08/24/23 Taras Tamayo MD [address] [place] [address] PCP - ACO Reach 05/11/24 documented as of this encounter
--- OUTSIDE RECORDS SUMMARY | 2024-10-11 14:09 | XMS_ITS | Encounter Summary ---
Author Organization [facility] Address [address] [facility] [place] [address] Care Team Providers Care Train System Operator Name Role Phone Taras Tamayo MD Primary Care Provider Taras Tamayo MD Unavailable Encounter Details Date Type Department Care Team (Late st Contact Info) Description 08/30/2023 Orders Only [facility] [address] [place] [address] Taras Tamayo MD [address] [place] [address] Social History Tobacco Use Types Packs/Day Years [...] often do you attend chur ch or confucianism services? More than 4 times per year 08/18/2023 Do you belong to any clubs o r organizations such as catholic groups, unions, fraternal or athletic groups, or [...] and heating? Not hard at all 08/18/2023 [facility] - Occupational Stress [...] place to sleep or slept in a residential (including now)? No 08/18/2023 Sex and Gender [...] Office Visit [facility] [address] [place] [address] Taras Tamayo MD [address] [place] [address] documented as of this encounter Visit Diagnoses Not on filedocumented in this encounter Care Teams Train System Operator Relationship Specialty Start Date End Date Taras Tamayo MD [address] [place] [address] PCP - General Family Medicine 08/24/23 Taras Tamayo MD [address] [place] [address] PCP - ACO Reach 05/11/24 documented as of this encounter
--- NOTE | 2024-10-11 14:31 | P.WCHP_ITS ---
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 He complains of pain beneath the right fifth metatarsal at the site of a recurrent callus. [facility] Medical History (Updated 10/11/24 @ 14:33 by AGAPITO Alexander) Cellulitis of lower extremity �L03.119 - Cellulitis of unspecified part of limb (ICD-10) Peripheral vascular disease �I73.9 - Peripheral vascular disease, unspecified (ICD-10) Seasonal allergies �J30.2 - Other seasonal allergic rhinitis (ICD-10) Arthritis �M19.90 - Unspecified osteoarthritis, unspecified site (ICD-10) COVID-19 �U07.1 - COVID-19 (ICD-10) High cholesterol �E78.00 - Pure hypercholesterolemia, unspecified (ICD-10) Hypertension �I10 - Essential (primary) hypertension (ICD-10) Typical angina �I20.9 - Angina pectoris, unspecified (ICD-10) Neuropathy �G62.9 - Polyneuropathy, unspecified (ICD-10) Colon polyp �K63.5 - Polyp of colon (ICD-10) Hammertoe �M20.40 - Other hammer toe(s) (acquired), unspecified foot (ICD-10) Bunionette �M21.629 - Bunionette of unspecified foot (ICD-10) Surgical History (Updated 02/21/23 @ 13:00 by Janey Norman NP) History of colonoscopy �Z98.890 - Other specified postprocedural states (ICD-10) H/O colectomy (2003) �Z90.49 - Acquired absence of other specified parts of digestive tract (ICD- 10) History of ankle surgery �Z98.890 - Other specified postprocedural states (ICD-10) History of carpal tunnel release �Z98.890 - Other specified postprocedural states (ICD-10) S/P cataract extraction and insertion of intraocular lens �Z98.49 - Cataract extraction status, unspecified eye (ICD-10) �Z96.1 - Presence of intraocular lens (ICD-10) History of cardiac catheterization �Z98.890 - Other specified postprocedural states (ICD-10) Family History (Updated 02/21/23 @ 13:00 by Janey Norman NP) Other Family history of breast cancer Family history of heart disease Family history of stroke Social History (Updated 02/21/23 @ 12:55 by Janey Norman NP) Within the past year, how often did you have a drink containing alcohol: monthly or less Smoking status: Never smoker Non-prescribed substance use: denies use Highest level of school completed/degree received: high school graduate Meds Home Medications and Allergies Home Medications �Medication �Instructions �Recorded �Confirmed �Type acetaminophen 500 mg tablet 500 mg PO Q6H PRN pain 03/07/23 History atorvastatin 40 mg tablet 40 mg PO DAILY 02/21/2307/25 History gabapentin 300 mg capsule 300 mg PO Q12H 02/21/2307/25 History isosorbide mononitrate 30 mg 30 mg PO DAILY 02/21/23 1 05/08/22 History tablet,extended release 24 hr metoprolol tartrate 25 mg tablet 25 mg PO BID 02/21/23 03/07/23 History nitroglycerin 0.4 mg sublingual 0.4 mg buccal Q5M PRN chest pain 02/21/23 03/07/23 History tablet cefadroxil 500 mg capsule 500 mg PO BID 7 days #14 cap s 03/07/23 Rx ondansetron 4 mg disintegrating 4 mg PO Q8H PRN nausea and 03/07/23 Rx tablet vomiting 5 days #15 tabs oxycodone-acetaminophen 5 mg-325 1 tab PO Q6H PRN pain 7 days #28 03/07/23 Rx mg tablet (Percocet) tabs sennosides 8.6 mg tablet (Senna 8.6 mg PO DAILY PRN co nstipation 7 03/07/23 Rx Laxative) days #7 tabs Allergies Allergy/AdvReac Type Severity Reaction Status Date / Time No Known Drug Allergies Allergy Verified 03/07/23 07:54 Exam Narrative: Exam Narrative: Derm: cluster of keratotic lesions beneath the 3rd metatarsal head on the left. Skin is intact at base. No open lesions. Toenails 1-10 are elongated, thickened, and dystrophic. Skin of both feet is diffusely dry. Neuro: protective sensation absent to monofilament testing in 5/5 areas tested on each foot. Vibratory sensation present but decreased. Achilles DTRs 1+ bilaterally Vasc: DP pulses 2/4 bilaterally, PT pulses nonpalpable bilaterally. Brisk cap refill. Digital hair absent bilaterally. Superficial varicosities present bilateral lower legs. MSK: Tailor's bunion deformity noted on the right. Contractures of the lesser toes bilaterally. Assessment and Plan Assessment and Plan (1) Tinea unguium: (2) Diminished pulses in lower extremity: (3) Hypothyroid neuropathy: (4) Type 2 diabetes mellitus with diabetic neuropathy, unspecified: Plan Routine nail and callus care performed. Follow-up in 3 months. Acute Procedures Podiatry Nail Debridement Class B Findings Absent posterior tibial pulse: bilateral Advanced trophic changes as evidenced by any three of the following: decreased hair growth, nail changes (thickening), pigmentary changes (discoloring) and skin texture (thin or shiny) Class C Findings Claudication: No Temperature changes: No Edema: No Nail debridement paresthesia (abnormal spontaneous sensations in the feet): No Burning: No Qualifies If: Qualifiers If:: A patient qualifies for nail debridement if they have: 1 class A finding (Q7) 2 class B findings (Q8) OR 1 class B & 2 class C findings in addition to a primary condition (Q9) Nail Procedure Nail Procedure Time out: Yes Nail procedure: other (Sharp toenail debridement toes 1 through 10. Paring of callus beneath the right fifth metatarsal head) Number of affected nails: 10 Location (toes): left and right Procedure successful: Yes Patient tolerated procedure: well and no complications Additional comments: Toenails 1 through 10 were sharply debrided with nail nippers without incident. Callus beneath the right fifth metatarsal head was pared with a dermal curette to the patient satisfaction. He noted pain relief postprocedure.
== END 2024-10-11 14:06 | disposition home or self-care (01) ==
LOC: WC 14:06
PROVIDERS: PCP Family Medicine; Visit Provider Physician Assistant
DX: B35.1 Tinea unguium (principal); I70.203 Unspecified atherosclerosis of native arteries of extremities, bilateral legs; E11.40 Type 2 diabetes mellitus with diabetic neuropathy, unspecified
CPT/HCPCS: 11721

== ENCOUNTER 2025-01-10 14:33 | Outpatient (OUT) | payer MEDICARE, OTHER, SELFPAY ==
--- OUTSIDE RECORDS SUMMARY | 2025-01-10 14:39 | XMS_ITS | CCD ---
Author Organization [facility] Care Team Providers Care Service Attendant Name Role Phone FAVIOLA NOLAN Unavailable Unavailable FAVIOLA NOLAN Unavailable Unavailable MUTGI, CHAVEZ Unavailable Unavailable MUTGI, CHAVEZ Unavailable Unavailable Taras Wright Primary Care Provider TAMMY ROY Admitting Unavailable TAMMY ROY Attending Unavailable Taras Wright MD Primary Care Provider Taras Wright MD Primary Care Provider TARAS WRIGHT Primary Care Unavailable CASSIE OWEN Attending Unavailable TARAS WRIGHT Primary Care Unavailable Taras Wright MD Primary Care Provider [phone] Taras Wright MD Unavailable Taras Wright MD Primary Care Provider Unavailab Taras Riggins MD Primary Care Provider [phone] Taras Wright MD Primary Care Provider [phone] TARAS WRIGHT Attending Unavailable TARAS WRIGHT Attending Unavailable TARAS WRIGHT Attending Unavailable TARAS WRIGHT Attending Unavailable TARAS WRIGHT Attending Unavailable BONNIE GARRIDO Referring Unavailable TARAS WRIGHT Primary Care Unavailable TARAS WRIGHT Primary Care Unavailable TANNER, DAVIE Admitting Unavailable TANNER, DAVIE Attending Unavailable TANNER, DAVIE Consulting Unavailable Taras Wright MD Primary Care Provider Taras Wright MD Primary Care Provider Isma Cohen DO Primary Care Provider ROSANNA CAPELLAN Attending Unavailable TARAS WRIGHT Referring Unavailable TARAS WRIGHT Primary Care Unavailable ISMA COHEN Attending Unavailable TARAS WRIGHT Referring Unavailable ISMA COHEN Primary Care Unavailable NADERER, TARAS Referring Unavailable NADERER, TARAS Primary Care Unavailable GAGE RAMÍREZ Referring Unavaila ble NADERER, TARAS Primary Care Unavailable BONNIE GARRIDO Attending Unavailable NADERER, TARAS Referring Unavailable NADERER, TARAS Primary Care Unavailable SIRENA, BONNIE K Referring Unavailable NADERER, TARAS Primary Care Unavailable BONNIE GARRIDO Attending Unavailable SIRENA, BONNIE K Referring Unavailable NADERER, TARAS Primary Care Unavailable NADERER, TARAS Referring Unavailable NADERER, TARAS Primary Care Unavailable BOUMEGOUAS, CARLOS ENRIQUE Attending Unavailable NADERER, TARAS Referring Unavailable NADERER, TARAS Primary Care Unavailable BOUMEGOUAS, CARLOS ENRIQUE Referring Unavailable NADERER, TARAS Primary Care Unavailable SAWAF, ESTUARDO Referring Unavailable NADERER, TARAS Primary Care Unavailable BOUMEGOUAS, CARLOS ENRIQUE Attending Unavailable BOUMEGOUAS, CARLOS ENRIQUE Referring Unavailable NADERER, TARAS Primary Care Unavailable MICI, DELMAR Attending Unavailable NADERER, TARAS Referring Unavailable NADERER, TARAS Primary Care Unavailable NADERER, TARAS Referring Unavailable NADERER, TARAS Primary Care Unavailable MICI, DELMAR Referring Unavailable NADERER, TARAS Primary Care Unavailable NADERER, TARAS Referring Unavailable NADERER, TARAS Primary Care Unavailable ISMA SMITH Admitting Unavailable ISMA SMITH Attending Unavailable ISMA SMITH Referring Unavailable NADERER, TARAS Primary Care Unavailable ISMA COHEN Referring Unavailable BADLATRICIA, ISMA Ovalle Primary Care Unavailable Allergies Allergy Classification Reported Allergen(s) Allergy Type Date of Onset Reaction(s) Facility (1 source) 52339,00; Translations: [25303,00] Propensity to adverse reactions (disorder) 0 [facility] Medications Current Medications Medication Drug Class(es) Dates Sig (Normalized) Sig (Original) amoxicillin 875 mg / clavulanate 125 mg oral tablet (5 sources) Penicillin-class Antibacterial Start: 05-22-2024 End: 07-03-2024 take 1 tablet by mouth in the morning amoxicillin-clavula maycol (Augmentin) 875-125 MG tablet Indications: Chronic rhinosinusitis Take 1 tablet (875 mg) by mouth in the morning and 1 tablet (875 mg) before bedtime. 60 tablet 05/22/2024 07/03/2024 Discontinued atorvastatin 40 mg oral tablet (20 sources) HMG-CoA Reductase Inhibitor Start: 07-18-2024 End: 07-18-2024 take 80 mg by mouth once daily 80 mg, oral, Nightly, First dose (after last modification) on Tue07/18/24 at 2200, Look-alike/sound-al betsy medication - verify indication for use. Start: 07-18-2024 take 1 tablet by myrna th once daily atorvastatin (LIPITOR) 80 mg tablet Take 1 tablet (80 mg total) by mouth nightly. 90 tablet 50 07/18/2024 Active Start: 02-10-2022 End: 07-18-2024 take 40 mg by mouth once daily 40 mg, oral, Nightly, F irst dose on Tue07/16/24 at 2200, Look-alike/sound-alike medication - verify indication for use. End: 02-13-2024 take 1 tablet by mouth once daily atorvastatin (Lipitor) 10 MG tablet Take 1 tablet by mouth Daily 02/13/2024 Discontinued empagliflozin 10 mg oral tablet (14 sources) Sodium-Glucose Cotransporter 2 Inhibitor Start: 07-18-2024 End: 07-18-2024 take 1 tablet by mouth in the morning empagliflozin (JARDIANCE) 10 mg tablet tablet Take 1 tablet (10 mg total) by mouth in the morning. 90 tablet 2 07/19/2024 Active Start: 12-03-2021 empagliflozin (JARDIANCE) 10 mg tablet Take 10 mg by mouth. 0 12/03/2021 Active Comment on above: Take 10 mg by mouth. furosemide 40 mg oral tablet (11 sources) Loop Diuretic Start: 07-18-2024 End: 08-02-2024 take 1 tablet by mouth in the morning furosemide (Lasix) 40 MG tablet Take 40 mg by mouth in the morning and 40 mg in the evening. 07/18/2024 Active Start: 07-18-2024 End: 07-18-2024 40 mg, intravenous, Once, On Tue07/18/24 at 1030, For 1 dose, Look-alike/sound-alike medication - verify indication for use. IVP rate = 20 mg/min Start: 07-17-2024 End: 07-17-2024 40 mg, intravenous, Once, On Tue07/17/24 at 1000, For 1 dose, Look-alike/sound-alike medication - verify indication for use. IVP rate = 20 mg/min Start: 09-11-2020 End: 06-27-2023 furosemide (LASIX) 40 mg tab let Take by mouth. 09/11/2020 Active Comment on above: Take by mouth. gabapentin 300 mg oral capsule (20 sources) Anti-epileptic Agent Start: 08-15-2024 take 1 capsule by mouth once daily at bedtime gabapentin (Neurontin) 300 MG capsule Indications: Small fiber polyneuropathy TAKE 1 CAPSULE BY MOUTH EVERY MORNING, EVENING, AND EVERY NIGHT AT BEDTIME 90 capsule 2 08/15/2024 Active Start: 11-14-2023 End: 08-15-2024 take 1 capsule by mouth once daily at bedtime gabapentin (Neurontin) 300 MG capsule Indications: Small fiber polyneuropathy TAKE 1 CAPSULE BY MOUTH EVERY MORNING, EVENING, AND EVERY NIGHT AT BEDTIME 90 capsule 2 05/14/2024 08/15/2024 Discontinued take 1 capsule by [facility] twice daily gabapentin (NEURONTIN) 300 mg capsule Take 300 mg by mouth twice daily. Active Comment on above: Take 300 mg by mouth twice daily. 24 hr isosorbide mononitrate 30 mg extended release oral tablet (20 sources) Nitrate Vasodilator Start: End: take 1 tablet by mouth once daily isosorbide mononitrate (IMDUR) 30 mg 24 hr tablet Take 1 tablet (30 mg total) by mouth daily for 360 days. 90 tablet 3 08/07/2024 08/02/2025 Active Start: 02-10-2022 isosorbide mon onitrate ER (IMDUR) 30 mg 24 hr tablet 02/10/2022 Active levoFLOXacin 750 mg oral tablet (2 sources) Quinolone Antimicrobial Start: 04-24-2024 End: 05-01-2024 take 1 tablet by mouth once daily levoFLOXacin (Levaquin) 750 MG tablet Indications: Acute non-recurrent pansinusitis Take 1 tablet (750 mg) by mouth Daily for 7 days 7 tablet 04/24/2024 05/01/2024 Active 24 hr metoprolol succinate 25 mg extended release oral tablet (20 sources) beta-Adrenergic Kiko Start: 07-19-2024 take 1 tablet by mouth every twenty-four hours in the morning metoprolol succinate XL (TOPROL XL) 25 mg 24 hr tablet Take 1 tablet (25 mg total) by mouth in the morning. 90 tablet 2 07/19/2024 Active Start: 07-16-2024 End: 07-18-2024 take 25 mg by mouth once daily 25 mg, oral, Daily, First dose on Tue07/18/24 at 1015, Look-alike/sound-alike medication - verify indication for use. Do not crush or chew. Start: 07-16-2024 End: 07-16-2024 take 0.5 tablet by mouth every twenty-four hours in the morning metoprolol succinate XL (TOPROL XL) 25 m g 24 hr tablet Indications: Coronary artery disease of [place] artery of [place] heart with stable angina pectoris Take 0.5 tablets (12.5 mg total) by mouth in the morning. 90 tablet 3 07/16/2024 07/16/2024 Discontinued Start: 02-10-2022 End: 07-16-2024 take 1 tablet by mouth in the morning metoprolol tartrate (LOPRESSOR) 25 mg tablet TAKE 1 TABLET BY MOUTH IN THE MORNING AND 1 TABLET BEFORE BEDTIME 180 tablet 3 10/27/2023 07/16/2024 Discontinued (Alternate therapy) End: 07-16-2024 take 0.5 tablet by mouth in the morning, then take 0.5 tablet by mouth at bedtime metoprolol tartrate (LOPRESSOR) 25 mg tablet Take 0.5 tablets (12.5 mg total) by mouth in the morning and 0.5 tablets (12.5 mg total) before bedtime. 07/16/2024 Discontinued (Therapy completed) Comment on above: TAKE 1 TABLET BY MYRNA TH EVERY MORNING AND 1 EVERY NIGHT AT BEDTIME multivitamin-minerals- lutein (MULTIVITAMIN 50 PLUS) tablet (1 source) multivitamin-min erals -lutein (MULTIVITAMIN 50 PLUS) tablet Take 1 tablet by mouth in the morning. Active mv-mn/om3/dha/epa/fish /lut/kin (OCUVITE ADULT 50 PLUS ORAL) (1 source) take 1 tablet by mouth in the morning mv-mn/om3/dha/epa/fis h/lut/kin (OCUVITE ADULT 50 PLUS ORAL) Take 1 tablet by mouth in the morning. Active nitroglycerin 0.4 mg sublingual tablet (20 sources) Nitrate Vasodilator Start: 06-27-19 nitroglycerin (NITROSTAT) 0.4 MG SL tablet 1 under the tongue as needed for angina, may repeat q5mins for up three doses 25 tablet 11 06/27/2023 Active predniSONE 50 mg oral tablet (2 sources) Start: 04-24-19 End: 04-30-19 take 1 tablet by mouth once daily predniSONE (Deltasone) 50 MG tablet Indications: Acute non-recurrent pansinusitis Take 1 tablet (50 mg) by mouth Daily for 6 days 6 tablet 04/24/2024 04/30/2024 Active sod sulf-pot chloride-mag sulf 1.479-0.188- 0.225 gram tablet (2 sources) Start: 09-19-19 sod sulf-pot chloride-mag sulf 1.479-0.188- 0.225 gram tablet Indications: Encounter for screening colonoscopy Please see instructional sheet given by physicians office. 24 tablet 09/18/2024 Active Completed/Discontinued Medications Medication Drug Class(es) Dates Sig (Normalized) Sig (Original) acetaminophen 500 mg oral tablet (20 sources) Start: 07-17-2024 End: 07-18-2024 take 1 tablet by mouth every six hours as needed for pain 1,000 mg, oral, Every 6 hours PRN, moderate pain - pain scale 4-6, Starting on Tue07/17/24 at 9 Start: 07-17-2024 End: 07-18-2024 take 1 tablet by mouth every four hours as needed for pain 650 mg, oral, Every 4 hours PRN, mild pain - pain scale 1-3, Starting on Tue07/17/24 at 0957 Start: 12-14-2022 take 1 tablet by myrna th every six hours as needed for pain acetaminophen (TYLENOL EXTRA STRENGTH) 500 mg tablet Take 1 tablet (500 mg total) by mouth every 6 (six) hours as needed for pain. 30 tablet 12/14/2022 Active amLODIPine 2.5 mg oral tablet (8 sources) Dihydropyridine Calcium Channel Kiko Start: 06-26-2024 End: 07-18-2024 take 1 tablet by mouth in the morning amLODIPine (NORVASC) 2.5 mg tablet Indications: Primary hypertension Take 1 tablet (2.5 mg total) by mouth in the morning. 90 tablet 3 06/26/2024 07/18/2024 Discontinued aspirin 81 mg chewable tablet (20 sources) Platelet Aggregation Inhibitor, Nonsteroidal Anti-inflammatory Drug Start: 07-16-2024 End: 07-18-2024 take 81 mg by mouth once daily 81 mg, oral, Daily, First dose on Tue07/16/24 at 1830 Start: 11-18-2021 take 1 tablet by myrna th in the morning aspirin 81 mg Take 1 tablet (81 mg total) by mouth in the morning. 2 tablet 11/18/2021 Active Comment on above: Take 81 mg by mouth. Calcium Gluconate (1 source) Start: End: calcium gluconate IVPB 1000 mg/50 mL (20 mg/mL premix) ceFAZolin 2000 mg injection (1 source) Cephalosporin Antibacterial Start: End: take 2000 mg intravenously every eight hours 2,000 mg, intravenous, at 100 mL/hr, Administer over 30 Minutes, Every 8 hours, First dose on Tue07/17/24 at 1600, For 3 doses, Look-alike/sound-a like medication - verify indication for use., Indication: Surgical prophylaxis glucagon (rdna) 1 mg injection (2 sources) Antihypoglycemic Agent Start: End: 1 mg, intramuscular, As needed, low blood sugar, blood glucose less than 70 mg/dL and unconscious or NPO without IV access., Starting on Tue07/17/24 at 0957, Recovery (CV) and Post-Procedure, If conscious and not NPO, immediately follow with meal tray or high protein (7Grams) snack if tray not available. If NPO, initiate IV 5% Dextrose/Water at 100 mL/hr and contact prescriber for additional orders. If blood glucose is not greater than 70 mg/dL after initial treatment, repeat treatment. 50 ml glucose 500 mg/ml prefilled syringe (4 sources) Start: End: 15 g, oral, As needed, low blood sugar, blood glucose less than 70 mg/dL, Starting on Tue07/17/24 at 0957, Recovery (CV) and Post-Procedure, If patient conscious and taking PO. If blood glucose is not greater than 70 mg/dL after initial treatment, repeat treatment. Start: 07-16-2024 End: 07-18-2024 25 mL, intravenous, As neede d, low blood sugar, blood glucose less than 70 mg/dL and unconscious or NPO with IV access, Starting on Tue07/17/24 at 0957, Recovery (CV) and Post-Procedure, Push over 1-3 minutes STAT. If conscious and not NPO, immediately follow with meal tray or high protein (7 grams) snack if tray not available. If NPO, initiate 5% dextrose in water at 100 mL/hr and contact prescriber for additional orders. If blood glucose is not greater than 70 mg/dL after initial treatment, repeat treatment. VESICANT (RED) Warning: HYPERTONIC solution. 1 ml heparin sodium, porcine 5000 unt/ml injection (1 source) Unfractionated Heparin, Anti-coagulant Start: 07-17-2024 End: 07-17-2024 inject 5000 [IU] by subcutaneous injection every twelve hours 5,000 Units, subcutaneous, Every 12 hours scheduled, First dose (after last modification) on Tue07/17/24 at 0900, Look-alike/sound-alike medication - verify indication for use. Observe for bleeding. magnesium sulfate IVPB 2000 mg/50 mL in iso-osmotic water (40 mg/mL premix) (1 source) Start: 07-16-2024 End: 07-18-2024 magnesium sulfate IVPB 2000 mg/50 mL in iso-osmotic water (40 mg/mL premix) naproxen 250 mg oral tablet (1 source) Nonsteroidal Anti-inflammatory Drug naproxen (NAPROSYN) 250 mg tablet Take 250 mg by mouth. 0 Active Comment on above: Take 250 mg by mouth. perflutren lipid microspheres (DEFINITY) dilution injection 1.43 mg/10 mL (1 source) Start: 07-16-2024 End: 07-17-2024 2 mL, intravenous, As needed, contrast, Starting on Tue07/16/24 at 1821, For 6 hours, Additional Imaging Orders, Dilute 1.3 mL of Definity with 8.7mL of 0.9% NaCl in 10 mL syringe Administer 2 mL perflutren (Definity) contrast if 2 contiguous segments of the LV are not well visualized. May repeat 2 mL dose until LV visualization is accomplished. Procedure total dose not to exceed 10 mL. Potassium Chloride (1 source) Start: 07-16-2024 End: 07-18-2024 potassium chloride (K-TAB,KLOR-CON) CR tablet 20-50 mEq potassium chloride IVPB 10 mEq/50 mL in water (0.2 mEq/mL premix) (1 source) Start: 07-16-2024 End: 07-18-2024 potassium chloride IVPB 10 mEq/50 mL in water (0.2 mEq/mL premix) 1000 ml sodium chloride 9 mg/ml injection (1 source) Start: 07-17-2024 End: 07-18-2024 take 20 mL intravenously every hour 20 mL/hr, intravenous, Continuous, Starting on Tue07/17/24 at 1000, For 1 day, Convert to INT when tolerating liquids sodium phosphate 20 mmol in sodium chloride 0.9 % 250 mL IVPB (1 source) Start: 07-16-2024 End: 07-18-2024 sodium phosphate 20 mmol in sodium chloride 0.9 % 250 mL IVPB Problems Active Problems Problem Classification Problem Date Documented Date Episodic/Chronic Acquired foot deformities (20 sources) Acquired hallux malleus; Translations: [Other hammer toe(s) (acquired), right foot] Onset: 01-12-2023 01-12-2023 Chronic Cardiac dysrhythmias (18 sources) 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; Translations: [Other specified cardiac arrhythmias] Onset: 06-26-2024 06-26-2024 Chronic Cardiac dysrhythmias (2 sources) Bradycardia; Translations: [Bradycardia, unspecified] Onset: 07-16-2024 07-16-2024 Episodic Complication of device; implant or graft (3 sources) 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; Translations: [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] Onset: 07-16-2024 07-18-2024 Chronic Conduction disorders (20 sources) Complete atrioventricular block; Translations: [Atrioventricular block, complete] Onset: 07-16-2024 07-16-2024 Chronic Coronary atherosclerosis and other heart disease (20 sources) Coronary arteriosclerosis; Translations: [Atherosclerotic heart disease of [place] coronary artery without angina pectoris] Onset: 11-18-2021 Resolved: 12-28-2022 08-08-2023 Chronic Deficiency and other anemia (2 sources) Anemia; Translations: [Anemia, unspecified] Onset: 12-31-2024 12-31-2024 Episodic Deficiency and other anemia (1 source) Anemia, unspecified; Translations: [Anemia, unspecified] Onset: 12-31-2024 Episodic Diabetes mellitus with complications (20 sources) Hyperglycemia due to type 2 diabetes mellitus; Translations: [Type 2 diabetes mellitus with hyperglycemia] Onset: 01-12-2023 08-30-2023 Chronic Disorders of lipid metabolism (20 sources) Dyslipidemia; Translations: [Hyperlipidemia, unspecified] Onset: 08-08-2023 08-08-2023 Chronic Essential hypertension (2 sources) Essential hypertension; Translations: [Essential (primary) hypertension] Onset: 06-26-2024 06-26-2024 Chronic Neoplasms of unspecified nature or uncertain behavior (20 sources) Monoclonal gammopathy of uncertain significance; Translations: [Monoclonal gammopathy] Onset: 04-20-2018 Chronic Other and unspecified benign neoplasm (1 source) Benign neoplasm of sigmoid colon; Translations: [Benign neoplasm of sigmoid colon] Onset: 10-08-2024 Episodic Other congenital anomalies (16 sources) Porokeratosis; Translations: [Other specified congenital malformations of skin] Onset: 08-08-2023 08-08-2023 Chronic Other hereditary and degenerative nervous system conditions (1 source) Idiopathic peripheral autonomic neuropathy; Translations: [Other idiopathic peripheral autonomic neuropathy] Chronic Other lower respiratory disease (4 sources) Dyspnea on exertion; Translations: [Other forms of dyspnea] 06-26-2024 Episodic Other lower respiratory disease (1 source) Shortness of breath; Translations: [Shortness of breath] Onset: 07-16-2024 Episodic Other nervous system disorders (2 sources) Neuropathy; Translations: [Polyneuropathy, unspecified] Onset: 04-20-2018 04-20-2018 Chronic Other nervous system disorders (20 sources) Polyneuropathy; Translations: [Other specified polyneuropathies] Onset: 08-08-2023 08-08-2023 Chronic Other nervous system disorders (4 sources) Chronic low back pain; Translations: [Other chronic pain] Onset: 08-08-2023 08-08-2023 Chronic Other nervous system disorders (1 source) Polyneuropathy, unspecified; Translations: [Polyneuropathy, unspecified] Onset: 12-31-2024 Chronic Other screening for suspected conditions (not mental disorders or infectious disease) (20 sources) Patient encounter status; Translations: [Encounter for screening for malignant neoplasm of prostate] Onset: 11-18-2021 08-24-2023 Episodic Other upper respiratory disease (20 sources) Allergic rhinitis; Translations: [Allergic rhinitis, unspecified] Onset: 06-08-2021 06-08-2021 Chronic Other upper respiratory infections (20 sources) Chronic sinusitis; Translations: [Chronic sinusitis, unspecified] Onset: 08-08-2023 08-08-2023 Chronic Peripheral and visceral atherosclerosis (20 sources) Peripheral vascular disease, unspecified; Translations: [Peripheral vascular disease, unspecified] Onset: 01-12-2023 08-08-2023 Chronic Unclassified (3 sources) Patient encounter status; Translations: [Colon Cancer Screening] Onset: 09-18-2024 07-03-2024 Unclassified (1 source) Slow Heart Rate Onset: 07-16-2024 Unclassified (1 source) Medical Problem Onset: 07-16-2024 Unclassified (1 source) SOB, sent by cardio for pacemake and cath Onset: 07-16-2024 Unclassified (2 sources) Autogenerated Problem Onset: 09-18-2024 09-18-2024 Unclassified (1 source) Establish Care Onset: 12-31-2024 Unclassified (1 source) screening Onset: 10-08-2024 Unclassified (1 source) Device Check Onset: 08-29-2024 Past or Other Problems Problem Classification Problem Date Documented Date Episodic/Chronic Acquired foot deformities (20 sources) Bilateral Tailor's bunion of feet; Translations: [Bunionette of right foot] Onset: 01-12-2023 08-08-2023 Episodic Mood disorders (17 sources) Mood disorders Onset: 05-22-2024 Resolved: 12-31-2024 05-22-2024 Nonspecific chest pain (20 sources) Chest pain; Translations: [Chest pain, unspecified] Onset: 11-18-2021 11-18-2021 Episodic Other aftercare (5 sources) Follow-up examination, following other surgery; Translations: [Encounter for follow-up examination after completed treatment for conditions other than malignant neoplasm] Onset: 07-19-2014 Episodic Other aftercare (16 sources) Long-term current use of drug therapy; 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] Onset: 08-24-2023 08-24-2023 Episodic Other and unspecified benign neoplasm (2 sources) Personal history of colonic polyps; Translations: [Personal history of colonic polyps] Onset: 07-19-2014 Episodic Other diseases of veins and lymphatics (18 sources) Vascular insufficiency; Translations: [Venous insufficiency (chronic) (peripheral)] Onset: 08-08-2023 08-08-2023 Episodic Other diseases of veins and lymphatics (16 sources) Stasis dermatitis; Translations: [Venous insufficiency (chronic) (peripheral)] Onset: 08-24-2023 08-24-2023 Episodic Other eye disorders (1 source) Ocular pain, right eye; Translations: [Ocular pain, right eye] Onset: 03-07-2024 Episodic Other lower respiratory disease (2 sources) Other forms of dyspnea; Translations: [Other forms of dyspnea] Onset: 06-26-2024 Episodic Other non-traumatic joint disorders (16 sources) Chronic pain of right upper limb; Translations: [Pain in right shoulder] Onset: 08-08-2023 Resolved: 02-13-2024 08-08-2023 Episodic Other non-traumatic joint disorders (20 sources) Pain in right shoulder; Translations: [Pain in joint, shoulder region] Onset: 04-15-2021 04-15-2021 Episodic Other skin disorders (20 sources) Corns and callus; Translations: [Corns and callosities] Onset: 01-12-2023 01-12-2023 Episodic Other skin disorders (20 sources) Ingrowing nail; Translations: [Ingrowing nail] Onset: 01-12-2023 01-12-2023 Episodic Other upper respiratory infections (12 sources) Acute pansinusitis; Translations: [Acute pansinusitis, unspecified] Onset: 04-24-2024 Resolved: 05-22-2024 04-24-2024 Episodic Residual codes; unclassified (20 sources) Edema of right lower leg; Translations: [Localized edema] Onset: 01-12-2023 01-12-2023 Episodic Spondylosis; intervertebral disc disorders; other back problems (12 sources) Chronic low back pain; Translations: [Lumbago with sciatica, left side] Onset: 08-08-2023 08-08-2023 Episodic Unclassified (1 source) FOLLOW-UP SURGERY NEC; Translations: [FOLLOW-UP SURGERY NEC] Onset: 07-19-2014 Varicose veins of lower extremity (20 sources) Varicose ulcer of lower extremity; Translations: [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] Onset: 01-12-2023 Resolved: 12-31-2024 01-12-2023 Episodic Results Test Name Value Interpretation Reference Range Facility [facility] 12-31-2024 Erythrocyte distribution width (RBC) [Ratio] 13.9 % 11.5 - 15 % [facility] Hematocrit (Bld) [Volume fraction] 40.7 % 39 - 50 % [facility] Hemoglobin (Bld) [Mass/Vol] 14 g/dL 13 - 17 g/dL [facility] Interpretation and review of laboratory results Abnormal [facility] MCH (RBC) [Entitic mass] 30.1 pg 27 - 34 pg [facility] MCHC (RBC) [Mass/Vol] 34.3 g/dL 32 - 36 g/dL [facility] MCV (RBC) [Entitic vol] 88 fL 80 - 100 fL [facility] Platelet mean volume (Bld) [Entitic vol] 9.5 fL 7 - 12 fL [facility] Platelets (Bld) [#/Vol] 147 10*3/uL Low [facility] RBC (Bld) [#/Vol] 4.64 10*6/uL [facility] WBC LM Ql (Sput) 6.3 [facility] CBC (NO DIFF)on 12-31-2024 Erythrocyte distribution width (RBC) [Ratio] 13.9 % Normal 11.5-15 [facility] Comment on above: Performed By: #### H A1C #### [facility] ([id number]) [address] [place] [address], [address] [place] [address] Hematocrit (Bld) [Volume fraction] 40.7 % Normal 39-50 [facility] Comment on above: Performed By: #### H A1C #### [facility] ([id number]) [address], [address] [place] [address] Hemoglobin (Bld) [Mass/Vol] 14.0 g/dL Normal 13-17 [facility] Comment on above: Performed By: #### H A1C #### [facility] ([id number]) [address], [address] [place] [address] MCH (RBC) [Entitic mass] 30.1 pg Normal 27-34 [facility] Comment on above: Performed By: #### H A1C #### [facility] ([id number]) [address], [address] [place] [address] MCHC (RBC) [Mass/Vol] 34.3 g/dL Normal 32-36 [facility] Comment on above: Performed By: #### H A1C #### [facility] ([id number]) [address], [address] [place] [address] MCV (RBC) [Entitic vol] 88 fL Normal 80-100 [facility] Comment on above: Performed By: #### H A1C #### [facility] ([id number]) [address], [address] [place] [address] Platelet mean volume (Bld) [Entitic vol] 9.5 fL Normal 7-12 [facility] Comment on above: Performed By: #### H A1C #### [facility] ([id number]) [address], [address] [place] [address] Platelets (Bld) [#/Vol] 147 10*3/uL Low 150-450 [facility] Comment on above: Performed By: #### H A1C #### [facility] ([id number]) [address], [address] [place] [address] RBC COUNT 4.64 X10E12/L Normal 4.1-5.7 [facility] Comment on above: Performed By: #### H A1C #### [facility] ([id number]) [address], [address] [place] [address] WBC (Bld) [#/Vol] 6.3 10*3/uL Normal 4-11 [facility] Comment on above: Performed By: #### H A1C #### [facility] ([id number]) [address], [address] [place] [address] COMPREHENSIVE METABOLIC PANE [place] 12-31-2024 Albumin [Mass/Vol] 4.5 g/dL Normal 3.2-5.3 [facility] Comment on above: Performed By: #### H A1C #### [facility] ([id number]) [address], [address] [place] [address] ALP [Catalytic activity/Vol] 55 U/L Normal 39-130 [facility] Comment on above: Performed By: #### H A1C #### [facility] ([id number]) [address], [address] [place] [address] ALT [Catalytic activity/Vol] 33 U/L Normal <=40 [facility] Comment on above: Performed By: #### H A1C #### [facility] ([id number]) [address], [address] [place] [address] Anion gap [Moles/Vol] 10 mmol/L Normal 5-15 [facility] Comment on above: Performed By: #### H A1C #### [facility] ([id number]) [address], [address] [place] [address] AST [Catalytic activity/Vol] 32 U/L Normal <=41 [facility] Comment on above: Performed By: #### H A1C #### [facility] ([id number]) [address], [address] [place] [address] Bilirubin [Mass/Vol] 0.9 mg/dL Normal 0.3-1.2 [facility] Comment on above: Performed By: #### H A1C #### [facility] ([id number]) [address], [address] [place] [address] Calcium [Mass/Vol] 8.2 mg/dL Low 8.5-10.5 [facility] Comment on above: Performed By: #### H A1C #### [facility] ([id number]) [address], [address] [place] [address] Chloride [Moles/Vol] 105 mmol/L Normal 98-109 [facility] Comment on above: Performed By: #### H A1C #### [facility] ([id number]) [address], [address] [place] [address] CO2 [Moles/Vol] 25 mmol/L Normal 22-32 [facility] Comment on above: Performed By: #### H A1C #### [facility] ([id number]) [address], [address] [place] [address] Creatinine [Mass/Vol] 1.16 mg/dL Normal 0.60-1.30 [facility] Comment on above: Result Comment: METH OD TRACEABLE TO IDMS STANDARD Performed By: #### H A1C #### [facility] ([id number]) [address], [address] [place] [address] GFR/1.73 sq M.predicted among non-blacks MDRD (S/P/Bld) [Vol rate/Area] 67 mL/min/{1.73_m2} Normal >=60 [facility] Comment on above: Result Comment: Repo rted eGFR is based on the CKD-EPI 2020 equation that does not use a race coefficient. Performed By: #### H A1C #### [facility] ([id number]) [address], [address] [place] [address] Glucose [Mass/Vol] 133 mg/dL High 65-99 [facility] Comment on above: Performed By: #### H A1C #### [facility] ([id number]) [address], [facility] [address] [place] [address] Potassium [Moles/Vol] 4.0 mmol/L Normal 3.5-5.0 [facility] Comment on above: Performed By: #### H A1C #### [facility] ([id number]) [address], [facility] [address] [place] [address] Protein [Mass/Vol] 7.3 g/dL Normal 6.0-8.0 [facility] Comment on above: Performed By: #### H A1C #### [facility] ([id number]) [address], [facility] [address] [place] [address] Sodium [Moles/Vol] 140 mmol/L Normal 134-146 [facility] Comment on above: Performed By: #### H A1C #### [facility] ([id number]) [address], [facility] [address] [place] [address] Urea nitrogen [Mass/Vol] 17 mg/dL Normal 5-27 [facility] Comment on above: Performed By: #### H A1C #### [facility] ([id number]) [address], [address] [address] Comprehensive metabolic pane [place] 12-31-2024 Albumin [Mass/Vol] 4.5 g/dL 3.2 - 5.3 g/dL [facility] ALP [Catalytic activity/Vol] 55 U/L 39 - 130 U/L [facility] ALT No additional P-5'-P [Catalytic activity/Vol] 33 U/L NINF - 40 U/L [facility] Anion gap [Moles/Vol] 10 mmol/L 5 - 15 mmol/L [facility] AST [Catalytic activity/Vol] 32 U/L NINF - 41 U/L [facility] Bilirubin [Mass/Vol] 0.9 mg/dL 0.3 - 1.2 mg/dL [facility] Calcium [Mass/Vol] 8.2 mg/dL Low 8.5 - 10. 5 mg/dL [facility] Chloride [Moles/Vol] 105 mmol/L 98 - 109 mmol/L [facility] CO2 [Moles/Vol] 25 mmol/L 22 - 32 mmol/L [facility] Creatinine [Mass/Vol] 1.16 mg/dL 0.60 - 1.30 mg/dL [facility] Comment on above: METHOD TRACEABLE TO IDTN STANDARD EGFR Non-Race Dependent 67 - PINF [facility] Comment on above: Reported eGFR is bas ed on the CKD-EPI 2020 equation that does not use a race coefficient. Glucose [Mass/Vol] 133 mg/dL High 65 - 99 mg/dL [facility] Interpretation and review of laboratory results Abnormal [facility] Potassium [Moles/Vol] 4 mmol/L 3.5 - 5.0 mmol/L [facility] Protein [Mass/Vol] 7.3 g/dL 6.0 - 8.0 g/dL [facility] Sodium [Moles/Vol] 140 mmol/L 134 - 146 mmol/L [facility] Urea nitrogen [Mass/Vol] 17 mg/dL 5 - 27 mg/dL [facility] HEMOGLOBIN A1Con 12-31-2024 Glucose [Mass/Vol] 154 mg/dL Normal [facility] Comment on above: Performed By: #### H A1C #### [facility] ([id number]) [address] [place] [address], [address] [place] [address] HbA1c (Bld) [Mass fraction] 7.0 % High 4.4-5.6 [facility] Comment on above: Result Comment: ADA Guidelines Result HgbA1c Normal : less than 5.7 % Prediabetes : 5.7 % to 6.4 % Diabetes : > 6.4 % Use with caution in patients with abnormal hemoglobin variants as the half-life of red blood cells and in vivo glycation rates are affected. Performed By: #### H A1C #### [facility] ([id number]) [address], [address] [place] [address] Hemoglobin A1con 12-31-2024 Average glucose Estimated from glycated hemoglobin (Bld) [Mass/Vol] 154 mg/dL [facility] HbA1c (Bld) [Mass fraction] 7 % High 4.4 - 5.6 % [facility] Comment on above: ADA Guidelines Result HgbA1c Normal : less than 5.7 % Prediabetes : 5.7 % to 6.4 % Diabetes : > 6.4 % Use with caution in patients with abnormal hemoglobin variants as the half-life of red blood cells and in vivo glycation rates are affected. Interpretation and review of laboratory results Abnormal [facility] MICROALBUMIN / CREATININE UR INE RATIOon 12-31-2024 Albumin DL <= 20 mg/L (U) [Mass/Vol] 1.5 mg/dL Normal 0.0-1.9 [facility] Comment on above: Performed By: #### H A1C #### [facility] ([id number]) [address], [address] [place] [address] MALB/CREAT RATIO 16.4 mg/g Normal 0.0-30.0 [facility] Comment on above: Performed By: #### H A1C #### [facility] ([id number]) [address], [address] [place] [address] URINE CREATININE,RDM 91.56 mg/dL Normal [facility] Comment on above: Performed By: #### H A1C #### [facility] ([id number]) [address], [address] [place] [address] Microalbumin - Albumin: Crea tinine Urine Ratioon 12-31-2024 Albumin DL <= 20 mg/L (U) [Mass/Vol] 1.5 mg/dL 0.0 - 1.9 mg/dL [facility] Albumin/Creatinine DL <= 1.0 mg/L (U) [Ratio] 16.4 mg/g 0.0 - 30.0 mg/g [facility] Creatinine (U) [Mass/Vol] 91.56 mg/dL [facility] THYROID PROFILE INCLUDES TSH FT4on 12-31-2024 Free T4 [Mass/Vol] 0.78 ng/dL Normal 0.61-1.60 [facility] Comment on above: Performed By: #### H A1C #### [facility] ([id number]) [address] [facility], [address] [place] [address] TSH 1.95 uIU/mL Normal 0.49-4.67 [facility] Comment on above: Performed By: #### H A1C #### [facility] ([id number]) [address] [facility], [address] [place] [address] Thyroid profile includes TSH FT4on 12-31-2024 Free T4 [Mass/Vol] 0.78 ng/dL 0.61 - 1. 60 ng/dL [facility] Interpretation and review of laboratory results Normal [facility] TSH Qn 1.95 m[IU]/L [facility] LIPID PROFILEon 09-07-2024 Cholesterol [Mass/Vol] 112 mg/dL Low 150-200 [facility] Comment on above: Performed By: #### H A1C #### [facility] ([id number]) [address] [facility] [address], [address] [place] [address] Cholesterol in HDL [Mass/Vol] 49 mg/dL Normal >39 [facility] Comment on above: Result Comment: HDL <40 mg/dL - High Risk HDL > or = 40mg/dL- Desirable HDL >60 mg/dL - Negative Risk Performed By: #### H A1C #### [facility] ([id number]) [address] [place] [address] Cholesterol in LDL [Mass/Vol] 45 mg/dL Normal <130 [facility] Comment on above: Result Comment: LDL <100 mg/dL - Desirable LDL >160 mg/dL - High Risk Performed By: #### H A1C #### [facility] ([id number]) [address], [address] [place] [address] CHOLESTEROL:HDL 2.3 Normal 1.0-5.0 [facility] Comment on above: Performed By: #### H A1C #### [facility] ([id number]) [address], [address] [place] [address] Triglyceride [Mass/Vol] 88 mg/dL Normal 27-150 [facility] Comment on above: Performed By: #### H A1C #### [facility] ([id number]) [address], [address] [place] [address] VERY LOW LIPOPROTEIN 18 mg/dL Normal 0-30 [facility] Comment on above: Performed By: #### H A1C #### [facility] ([id number]) [address], [address] [place] [address] COMPREHENSIVE METABOLIC PANE [place] 07-25-2024 Albumin [Mass/Vol] 4.8 g/dL Normal 3.2-5.3 [facility] Comment on above: Performed By: #### H A1C #### [facility] ([id number]) [address], [address] [place] [address] ALP [Catalytic activity/Vol] 61 U/L Normal 39-130 [facility] Comment on above: Performed By: #### H A1C #### [facility] ([id number]) [address], [address] [place] [address] ALT [Catalytic activity/Vol] 35 U/L Normal 0-40 [facility] Comment on above: Performed By: #### H A1C #### [facility] ([id number]) [address], [address] [place] [address] Anion gap [Moles/Vol] 11 mmol/L Normal 5-15 [facility] Comment on above: Performed By: #### H A1C #### [facility] ([id number]) [address], [address] [place] [address] AST [Catalytic activity/Vol] 36 U/L Normal 0-41 [facility] Comment on above: Performed By: #### H A1C #### [facility] ([id number]) [address], [address] [place] [address] Bilirubin [Mass/Vol] 1.1 mg/dL Normal 0.3-1.2 [facility] Comment on above: Performed By: #### H A1C #### [facility] ([id number]) [address], [address] [place] [address] Calcium [Mass/Vol] 8.5 mg/dL Normal 8.5-10.5 [facility] Comment on above: Performed By: #### H A1C #### [facility] ([id number]) [address], [address] [place] [address] Chloride [Moles/Vol] 99 mmol/L Normal 98-109 [facility] Comment on above: Performed By: #### H A1C #### [facility] ([id number]) [address], [address] [place] [address] CO2 [Moles/Vol] 28 mmol/L Normal 22-32 [facility] Comment on above: Performed By: #### H A1C #### [facility] ([id number]) [address], [address] [place] [address] Creatinine [Mass/Vol] 1.30 mg/dL Normal 0.60-1.30 [facility] Comment on above: Result Comment: METH OD TRACEABLE TO IDMS STANDARD Performed By: #### H A1C #### [facility] ([id number]) [address], [address] [place] [address] GFR/1.73 sq M.predicted among non-blacks MDRD (S/P/Bld) [Vol rate/Area] 58 mL/min/{1.73_m2} Low >59 [facility] Comment on above: Result Comment: Reported eGFR is based on the CKD-EPI 2020 equation that does not use a race coefficient. Performed By: #### H A1C #### [facility] ([id number]) [address], [address] [place] [address] Glucose [Mass/Vol] 136 mg/dL High 65-99 [facility] Comment on above: Performed By: #### H A1C #### [facility] ([id number]) [address] [place] [address] Potassium [Moles/Vol] 3.8 mmol/L Normal 3.5-5.0 [facility] Comment on above: Performed By: #### H A1C #### [facility] ([id number]) [address] [address] [place] [address] Protein [Mass/Vol] 8.1 g/dL High 6.0-8.0 [facility] Comment on above: Performed By: #### H A1C #### [facility] ([id number]) [address], [address] [place] [address] Sodium [Moles/Vol] 138 mmol/L Normal 134-146 [facility] Comment on above: Performed By: #### H A1C #### [facility] ([id number]) [address] [place] [address] Urea nitrogen [Mass/Vol] 27 mg/dL Normal 5-27 [facility] Comment on above: Performed By: #### H A1C #### [facility] ([id number]) [address] [place] [address] Natriuretic peptide B [Mass/ Vol]on 07-25-2024 Natriuretic peptide B (Bld) [Mass/Vol] 61 pg/mL Normal <100.0 [facility] Comment on above: Performed By: #### 3 0934-4 #### [facility] ([id number]) [address] [place] [address], [place] [address] #### CMP #### [facility] ([id number]) [address], [address] [place] [address] CBC AND AUTO DIFFon 07-19-19 25 Eosinophils (Bld) [#/Vol] 0.3 10*3/uL Normal 0.0-0.4 [facility] Comment on above: Performed By: #### C BCA, PINR, 06782-0, 17216-3, CMP, 68891-5, 63939-2 #### [facility] ([id number]) [address], [address] [place] [address] Eosinophils/100 WBC (Bld) 5.2 % Normal [facility] Comment on above: Performed By: #### C BCA, PINR, 59295-8, 60767-7, CMP, 04222-9, 56217-5 #### [facility] ([id number]) [address], [address] [place] [address] Erythrocyte distribution width (RBC) [Ratio] 14.3 % Normal 11.5-15.0 [facility] Comment on above: Performed By: #### C BCA, PINR, 71047-5, 51651-2, CMP, 19412-5, 96241-5 #### [facility] ([id number]) [address], [address] [place] [address] Hematocrit (Bld) [Volume fraction] 33.7 % Low 39-49 [facility] Comment on above: Performed By: #### C BCA, PINR, 43389-8, 83879-5, CMP, 58167-8, 91099-7 #### [facility] ([id number]) [address], [address] [place] [address] Hemoglobin (Bld) [Mass/Vol] 11.7 g/dL Low 13.0-17.0 [facility] Comment on above: Performed By: #### C BCA, PINR, 78171-1, 53718-8, CMP, 88461-6, 99284-5 #### [facility] ([id number]) [address], [address] [place] [address] Lymphocytes (Bld) [#/Vol] 2.4 10*3/uL Normal 1.0-3.5 [facility] Comment on above: Performed By: #### C BCA, PINR, 15348-4, 58443-3, CMP, 48314-6, 79001-1 #### [facility] ([id number]) [address], [address] [place] [address] Lymphocytes/100 WBC (Bld) 36.5 % Normal [facility] Comment on above: Performed By: #### C BCA, PINR, 39893-4, 70036-1, CMP, 03520-4, 62014-6 #### [facility] ([id number]) [address], [address] [place] [address] MCH (RBC) [Entitic mass] 31.3 pg Normal 27-34 [facility] Comment on above: Performed By: #### C BCA, PINR, 18466-4, 99623-8, CMP, 48076-6, 12890-2 #### [facility] ([id number]) [address], [address] [place] [address] MCHC (RBC) [Mass/Vol] 34.8 g/dL Normal 32-36 [facility] Comment on above: Performed By: #### C BCA, PINR, 74450-8, 18053-7, CMP, 24724-4, 58339-2 #### [facility] ([id number]) [address], [address] [place] [address] MCV (RBC) [Entitic vol] 90 fL Normal 80-100 [facility] Comment on above: Performed By: #### C BCA, PINR, 31613-4, 88266-0, CMP, 29741-0, 42627-7 #### [facility] ([id number]) [address], [facility] [address] [place] [address] Monocytes (Bld) [#/Vol] 0.8 10*3/uL Normal 0-0.9 [facility] Comment on above: Performed By: #### C BCA, PINR, 41638-7, 05952-3, CMP, 10780-6, 37169-1 #### [facility] ([id number]) [address], [facility] [address] [place] [address] Monocytes/100 WBC (Bld) 12.7 % Normal [facility] Comment on above: Performed By: #### C BCA, PINR, 47851-3, 07151-5, CMP, 95519-5, 94331-2 #### [facility] ([id number]) [address], [facility] [address] [place] [address] Neutrophils/100 WBC (Bld) 43.6 % Normal [facility] Comment on above: Performed By: #### C BCA, PINR, 80511-5, 68940-0, CMP, 90889-7, 73576-4 #### [facility] ([id number]) [address], [facility] [address] [place] [address] Platelet mean volume (Bld) [Entitic vol] 9.9 fL Normal 7-12 [facility] Comment on above: Performed By: #### C BCA, PINR, 93149-1, 18897-6, CMP, 06056-0, 00667-7 #### [facility] ([id number]) [address] [place] [address] Platelets (Bld) [#/Vol] 136 10*3/uL Low 150-450 [facility] Comment on above: Performed By: #### C BCA, PINR, 95021-9, 87589-5, CMP, 49654-5, 66510-4 #### [facility] ([id number]) [address], [address] [place] [address] ABSOLUTE BASOPHIL 0.1 X10E9/L Normal 0.0-0.2 [facility] Comment on above: Performed By: #### C BCA, PINR, 15646-3, 44322-6, CMP, 56711-3, 04444-2 #### [facility] ([id number]) [address], [address] [place] [address] ABSOLUTE NEUTROPHIL 2.9 X10E9/L Normal 1.5-6.6 [facility] Comment on above: Performed By: #### C BCA, PINR, 24230-0, 86734-2, CMP, 58926-9, 07146-2 #### [facility] ([id number]) [address], [address] [place] [address] Basophils/100 WBC (Bld) 2.0 % Normal [facility] Comment on above: Performed By: #### C BCA, PINR, 98812-7, 29947-8, CMP, 54590-4, 94040-1 #### [facility] ([id number]) [address], [address] [place] [address] RBC COUNT 3.74 X10E12/L Low 4.10-5.70 [facility] Comment on above: Performed By: #### C BCA, PINR, 86605-9, 04918-2, CMP, 55283-7, 64083-0 #### [facility] ([id number]) [address], [address] [place] [address] WBC (Bld) [#/Vol] 6.7 10*3/uL Normal 4.0-11.0 [facility] Comment on above: Performed By: #### C BCA, PINR, 90505-2, 78077-8, CMP, 23708-0, 59005-8 #### [facility] ([id number]) [address], [address] [place] [address] CBC auto differentialon 07-03 Basophils (Bld) [#/Vol] 0.1 10*3/uL [facility] Basophils/100 WBC (Bld) 2 % [facility] Interpretation and review of laboratory results Abnormal [facility] Neutrophils (Bld) [#/Vol] 2.9 10*3/uL [facility] RBC (Bld) [#/Vol] 3.74 10*6/uL Low [facility] WBC corrected for nucl RBC Auto (Bld) [#/Vol] 6.7 [facility] COMPREHENSIVE METABOLIC PANE [place] 07-18-2024 Albumin [Mass/Vol] 3.8 g/dL Normal 3.2-5.3 [facility] Comment on above: Performed By: #### C BCA, PINR, 44441-2, 16455-2, CMP, 20602-6, 50547-7 #### [facility] ([id number]) [address], [address] [place] [address] ALP [Catalytic activity/Vol] 48 U/L Normal 39-130 [facility] Comment on above: Performed By: #### C BCA, PINR, 92855-8, 55895-0, CMP, 63627-1, 38963-7 #### [facility] ([id number]) [address], [address] [place] [address] Anion gap [Moles/Vol] 12 mmol/L Normal 5-15 [facility] Comment on above: Performed By: #### C BCA, PINR, 63127-7, 48217-4, CMP, 84935-8, 81940-7 #### [facility] ([id number]) [address], [address] [place] [address] AST [Catalytic activity/Vol] 31 U/L Normal 0-41 [facility] Comment on above: Performed By: #### C BCA, PINR, 58298-7, 00423-6, CMP, 63081-8, 91883-6 #### [facility] ([id number]) [address], [address] [place] [address] Bilirubin [Mass/Vol] 0.9 mg/dL Normal 0.3-1.2 [facility] Comment on above: Performed By: #### C BCA, PINR, 01410-3, 99558-6, CMP, 37659-6, 54632-2 #### [facility] ([id number]) [address], [address] [place] [address] Calcium [Mass/Vol] 7.5 mg/dL Low 8.5-10.5 [facility] Comment on above: Performed By: #### C BCA, PINR, 53800-2, 99937-6, CMP, 18440-4, 38654-2 #### [facility] ([id number]) [address], [address] [place] [address] Chloride [Moles/Vol] 104 mmol/L Normal 98-109 [facility] Comment on above: Performed By: #### C BCA, PINR, 38101-8, 45530-6, CMP, 10364-2, 34142-7 #### [facility] ([id number]) [address], [address] [place] [address] CO2 [Moles/Vol] 27 mmol/L Normal 22-32 [facility] Comment on above: Performed By: #### C BCA, PINR, 78431-4, 54436-8, CMP, 94952-4, 37219-3 #### [facility] ([id number]) [address], [address] [place] [address] Creatinine [Mass/Vol] 1.12 mg/dL Normal 0.60-1.30 [facility] Comment on above: METHOD TRACEABLE TO IDMS STANDARD Result Comment: METH OD TRACEABLE TO IDMS STANDARD Performed By: #### C BCA, PINR, 55091-9, 74737-9, CMP, 24243-0, 98058-4 #### [facility] ([id number]) [address], [address] [place] [address] Glucose [Mass/Vol] 118 mg/dL High 65-99 [facility] Comment on above: Performed By: #### C BCA, PINR, 40053-3, 98891-7, CMP, 70613-9, 44413-2 #### [facility] ([id number]) [address], [address] [place] [address] Potassium [Moles/Vol] 3.3 mmol/L Low 3.5-5.0 [facility] Comment on above: Performed By: #### C BCA, PINR, 05534-0, 85469-0, CMP, 71391-2, 23933-2 #### [facility] ([id number]) [address], [address] [place] [address] Protein [Mass/Vol] 6.5 g/dL Normal 6.0-8.0 [facility] Comment on above: Performed By: #### C BCA, PINR, 00076-2, 27289-2, CMP, 85225-5, 61958-0 #### [facility] ([id number]) [address], [address] [place] [address] Sodium [Moles/Vol] 143 mmol/L Normal 134-146 [facility] Comment on above: Performed By: #### C BCA, PINR, 55304-2, 79303-4, CMP, 18838-6, 62603-4 #### [facility] ([id number]) [address], [address] [place] [address] Urea nitrogen [Mass/Vol] 17 mg/dL Normal 5-27 [facility] Comment on above: Performed By: #### C BCA, PINR, 07174-4, 91864-7, CMP, 86610-4, 46189-8 #### [facility] ([id number]) [address] [place] [address], [address] [place] [address] ALT [Catalytic activity/Vol] 37 U/L Normal 0-40 [facility] Comment on above: Performed By: #### C BCA, PINR, 42117-1, 17225-2, CMP, 17105-9, 38963-1 #### [facility] ([id number]) [address] [place] [address], [address] [place] [address] GFR/1.73 sq M.predicted among non-blacks MDRD (S/P/Bld) [Vol rate/Area] 70 mL/min/{1.73_m2} Normal >59 [facility] Comment on above: Result Comment: Reported eGFR is based on the CKD-EPI 2020 equation that does not use a race coefficient. Performed By: #### C BCA, PINR, 49832-7, 38513-8, CMP, 37132-2, 16350-9 #### [facility] ([id number]) [address] [place] [address], [address] [place] [address] Calcium.ionized (Bld) [Mass/ Vol]on 07-18-2024 Interpretation and review of laboratory results Abnormal [facility] IONIZED CALCIUM 4.1 mg/dL Low 4.5-5.3 [facility] Comment on above: Performed By: #### C BCA, PINR, 48732-9, 20198-9, CMP, 03260-9, 85369-4 #### [facility] ([id number]) [address] [place] [address], [address] [place] [address] Cobalamin (Vitamin B12) [Mas s/Vol]on 07-18-2024 [facility] Comprehensive metabolic pane israel 07-18-2024 ALT No additional P-5'-P [Catalytic activity/Vol] 37 U/L 0 - 40 U/L [facility] eGFR (CKD-EPI)non-race dependent 70 - PINF [facility] Comment on above: Reported eGFR is based on the CKD-EPI 2020 equation that does not use a race coefficient. Interpretation and review of laboratory results Abnormal [facility] Ferritin [Mass/Vol]on 2024 [facility] Folateon 07-18-2024 Folate [Mass/Vol] 22 ng/mL 5.8 - PINF ng/mL [facility] Comment on above: NEW REFERENCE RANGE Folate [Mass/Vol]on 07-19-19 [facility] FOLIC ACID 22.0 ng/mL Normal >5.8 [facility] Comment on above: Result Comment: NEW REFERENCE RANGE Performed By: #### C BCA, PINR, 42052-5, 46395-8, CMP, 17946-8, 21374-7 #### [facility] ([id number]) [address], [address] [place] [address] IRON PROFILEon 07-18-2024 Iron [Mass/Vol] 49 ug/dL Low 50-212 [facility] Comment on above: Performed By: #### C BCA, PINR, 35301-4, 78913-0, CMP, 75165-9, 51209-6 #### [facility] ([id number]) [address], [address] [place] [address] IRON BINDING 349 ug/dL Normal 250-425 [facility] Comment on above: Performed By: #### C BCA, PINR, 99593-3, 86554-4, CMP, 83672-8, 23902-5 #### [facility] ([id number]) [address], [address] [place] [address] IRON SATURATION 14 % SATURATION Low 20-50 [facility] Comment on above: Performed By: #### C BCA, PINR, 22891-4, 49918-9, CMP, 50757-4, 02038-6 #### [facility] ([id number]) [address], [address] [place] [address] Ionized calciumon 07-18-2024 Calcium.ionized (Bld) [Mass/Vol] 4.1 mg/dL Low 4.5 - 5.3 mg/dL [facility] Iron and TIBCon 07-18-2024 Interpretation and review of laboratory results Abnormal [facility] Iron binding capacity [Mass/Vol] 349 ug/dL 250 - 425 ug/dL [facility] Iron saturation [Mass fraction] 14 Low [facility] - Chemistry and C hemistry - challengeon 07-18-2024 Cobalamin (Vitamin B12) [Mass/Vol] 602 pg/mL Normal 180-914 [facility] Comment on above: Performed By: #### C BCA, PINR, 59082-4, 09859-5, CMP, 76589-4, 73703-7 #### [facility] ([id number]) [address], [address] [place] [address] Ferritin [Mass/Vol] 165 ng/mL Normal 24-336 [facility] Comment on above: Performed By: #### C BCA, PINR, 23388-1, 71751-7, CMP, 99041-2, 77453-7 #### [facility] ([id number]) [address], [address] [place] [address] Magnesium [Mass/Vol] 2.1 mg/dL Normal 1.8-2.6 [facility] Comment on above: Performed By: #### C BCA, PINR, 34155-8, 77811-1, CMP, 82381-9, 96412-4 #### [facility] ([id number]) [address], [address] [place] [address] Natriuretic peptide B [Mass/ Vol]on 07-18-2024 Interpretation and review of laboratory results Abnormal [facility] Natriuretic peptide B (Bld) [Mass/Vol] 213 pg/mL High <100.0 [facility] Comment on above: Performed By: #### C BCA, PINR, 33476-8, 93844-0, CMP, 53800-1, 76707-1 #### [facility] ([id number]) [address], [address] [place] [address] [facility] No Panel Informationon 07-18 [facility] XR CHEST 2 VWSon 07-18-2024 XR CHEST 2 VWS XR CHEST 2 VWS *ADDENDUM*IMPRESSION: * Left-sided dual-lead pacemaker in place with right atrial and ventricular leads intact without discontinuity. * Low lung volumes with hypoventilatory changes including bibasilar atelectasis. Background of pulmonary vascular congestion/edema. * No significant pleural effusions. No pneumothorax. Finalized by Marshall Rogers MD on 07/18/2024 2:50 PM Normal [facility] XR Chest PA and Lateralon Addendum by Marshall Rogers MD on 07/18/2024 2:50 PM EDT *ADDENDUM*IMPRESSION: * Left-sided dual-lead pacemaker in place with right atrial and ventricular leads intact without discontinuity. * Low lung volumes with hypoventilatory changes including bibasilar atelectasis. Background of pulmonary vascular congestion/edema. * No significant pleural effusions. No pneumothorax. Finalized by Marshall Rogers MD on 07/18/2024 2:50 PM [facility] CHEST 2 VIEWS HISTORY: Lead placement COMPARISON: 07/17/2024 IMPRESSION: * Left-sided dual-lead pacemaker in place with right atrial and ventricular leads renal lesions discontinuity. * Low lung volumes with hypoventilatory changes including bibasilar atelectasis. Background of pulmonary vascular congestion/edema. * No significant pleural effusions. No pneumothorax. Finalized by Marshall Rogers MD on 07/18/2024 5:59 AM [facility] Marshall Rogers MD - 07/18/2024 CHEST 2 VIEWS HISTORY: Lead placement COMPARISON: 07/17/2024 IMPRESSION: * Left-sided dual-lead pacemaker in place with right atrial and ventricular leads renal lesions discontinuity. * Low lung volumes with hypoventilatory changes including bibasilar atelectasis. Background of pulmonary vascular congestion/edema. * No significant pleural effusions. No pneumothorax. Finalized by Marshall Rogers MD on 07/18/2024 5:59 AM [facility] Radiology Study observation (narrative) [facility] XR Chest PA and LateralOrder ed By: Marshall Rogers on 07-18-2024 [facility] Work Phone: CBC AND AUTO DIFFon 07-18-19 25 ABSOLUTE BASOPHIL 0.1 X10E9/L Normal 0.0-0.2 [facility] Comment on above: Performed By: #### Rachell BERNSTEIN [facility], 00707-8 ####[facility] ([id number])[address], [address] [place] [address] ABSOLUTE NEUTROPHIL 5.8 X10E9/L Normal 1.5-6.6 [facility] Comment on above: Performed By: #### Rachell BERNSTEIN CMP, ####[facility] ([id number])[address], [address] [place] [address] Basophils/100 WBC (Bld) 0.6 % Normal [facility] Comment on above: Performed By: #### Rachell BERNSTEIN CMP, 20426-7 ####[facility] ([id number])[address], [address] [place] [address] Eosinophils (Bld) [#/Vol] 0.2 10*3/uL Normal 0.0-0.4 [facility] Comment on above: Performed By: #### C DAY CMP, ####[facility] ([id number])[address], [address] [place] [address] Eosinophils/100 WBC (Bld) 2.1 % Normal [facility] Comment on above: Performed By: #### Rachell BERNSTEIN CMP, ####[facility] ([id number])[address] [address] Erythrocyte distribution width (RBC) [Ratio] 14.2 % Normal 11.5-15.0 [facility] Comment on above: Performed By: #### C DAY CMP, ####[facility] ([id number])[address] [address] Hematocrit (Bld) [Volume fraction] 35.1 % Low 39-49 [facility] Comment on above: Performed By: #### Rachell BERNSTEIN, CMP, ####[facility] ([id number])[address] [address] [address] Hemoglobin (Bld) [Mass/Vol] 11.9 g/dL Low 13.0-17.0 [facility] Comment on above: Performed By: #### Rachell BERNSTEIN, CMP, ####[facility] ([id number])[address] [address] Lymphocytes (Bld) [#/Vol] 2.4 10*3/uL Normal 1.0-3.5 [facility] Comment on above: Performed By: #### Rachell BERNSTEIN CMP, ####[facility] ([id number])[address] [address] Lymphocytes/100 WBC (Bld) 24.6 % Normal [facility] Comment on above: Performed By: #### Rachell BERNSTEIN, CMP, ####[facility] ([id number])[address] [address] MCH (RBC) [Entitic mass] 30.7 pg Normal 27-34 [facility] Comment on above: Performed By: #### Rachell BERNSTEIN, CMP, ####[facility] ([id number])[address], [address] [address] MCHC (RBC) [Mass/Vol] 33.8 g/dL Normal 32-36 [facility] Comment on above: Performed By: #### Rachell BERNSTEIN CMP, ####[facility] ([id number])[address], [address], [place] [address] MCV (RBC) [Entitic vol] 91 fL Normal 80-100 [facility] Comment on above: Performed By: #### Rachell BERNSTEIN CMP, ####[facility] ([id number])[address] [address] Monocytes (Bld) [#/Vol] 1.2 10*3/uL High 0-0.9 [facility] Comment on above: Performed By: #### Rachell BERNSTEIN CMP, ####[facility] ([id number])[address], [place] [address] Monocytes/100 WBC (Bld) 12.4 % Normal [facility] Comment on above: Performed By: #### Rachell BERNSTEIN CMP, ####[facility] ([id number])[address], [place] [address] Neutrophils/100 WBC (Bld) 60.3 % Normal [facility] Comment on above: Performed By: #### Rachell BERNSTEIN CMP, ####[facility] ([id number])[address] [address] Platelet mean volume (Bld) [Entitic vol] 10.1 fL Normal 7-12 [facility] Comment on above: Performed By: #### Rachell BERNSTEIN, CMP, ####[facility] ([id number])[address], [address], [place] [address] Platelets (Bld) [#/Vol] 132 10*3/uL Low 150-450 [facility] Comment on above: Performed By: #### Rachell BERNSTEIN, CMP, 27252-9 ####[facility] ([id number])[address], [address] [place] [address] RBC COUNT 3.88 X10E12/L Low 4.10-5.70 [facility] Comment on above: Performed By: #### Rachell BERNSTEIN, CMP, 16231-1 ####[facility] ([id number])[address], [address] [place] [address] WBC (Bld) [#/Vol] 9.6 10*3/uL Normal 4.0-11.0 [facility] Comment on above: Performed By: #### Rachell BERNSTEIN CMP, 46971-0 ####[facility] ([id number])[address], [address] [place] [address] CBC auto differentialon 07-03 Basophils (Bld) [#/Vol] 0.1 10*3/uL [facility] Basophils/100 WBC (Bld) 0.6 % [facility] Eosinophils (Bld) [#/Vol] 0.2 10*3/uL [facility] Eosinophils/100 WBC (Bld) 2.1 % [facility] Erythrocyte distribution width (RBC) [Ratio] 14.2 % 11.5 - 15.0 % [facility] Hematocrit (Bld) [Volume fraction] 35.1 % Low 39 - 49 % [facility] Hemoglobin (Bld) [Mass/Vol] 11.9 g/dL Low 13.0 - 17.0 g/dL [facility] Interpretation and review of laboratory results Abnormal [facility] Lymphocytes (Bld) [#/Vol] 2.4 10*3/uL [facility] Lymphocytes/100 WBC (Bld) 24.6 % [facility] MCH (RBC) [Entitic mass] 30.7 pg 27 - 34 pg [facility] MCHC (RBC) [Mass/Vol] 33.8 g/dL 32 - 36 g/dL [facility] MCV (RBC) [Entitic vol] 91 fL 80 - 100 fL [facility] Monocytes (Bld) [#/Vol] 1.2 10*3/uL High [facility] Monocytes/100 WBC (Bld) 12.4 % [facility] Neutrophils (Bld) [#/Vol] 5.8 10*3/uL [facility] Neutrophils/100 WBC (Bld) 60.3 % [facility] Platelet mean volume (Bld) [Entitic vol] 10.1 fL 7 - 12 fL [facility] Platelets (Bld) [#/Vol] 132 10*3/uL Low [facility] RBC (Bld) [#/Vol] 3.88 10*6/uL Low [facility] WBC corrected for nucl RBC Auto (Bld) [#/Vol] 9.6 [facility] COMPREHENSIVE METABOLIC PANE [place] 07-17-2024 Albumin [Mass/Vol] 3.7 g/dL Normal 3.2-5.3 [facility] Comment on above: Performed By: #### C JEFF BERNSTEIN, 87792-7 ####[facility] ([id number])[address], [address] [place] [address] ALP [Catalytic activity/Vol] 50 U/L Normal 39-130 [facility] Comment on above: Performed By: #### Rachell BERNSTEIN CMP, ####[facility] ([id number])[address], [address] [place] [address] ALT [Catalytic activity/Vol] 48 U/L High 0-40 [facility] Comment on above: Performed By: #### Rachell BERNSTEIN CMP, ####[facility] ([id number])[address], [address] [place] [address] Anion gap [Moles/Vol] 12 mmol/L Normal 5-15 [facility] Comment on above: Performed By: #### Rachell BERNSTEIN CMP, ####[facility] ([id number])[address], [address], [place] [address] AST [Catalytic activity/Vol] 31 U/L Normal 0-41 [facility] Comment on above: Performed By: #### C BCA, CMP, ####[facility] ([id number])[address], [address], [place] [address] Bilirubin [Mass/Vol] 1.2 mg/dL Normal 0.3-1.2 [facility] Comment on above: Performed By: #### C BCA, CMP, ####[facility] ([id number])[address], [place] [address] Calcium [Mass/Vol] 7.7 mg/dL Low 8.5-10.5 [facility] Comment on above: Performed By: #### C BCA, CMP, ####[facility] ([id number])[address], [address], [place] [address] Chloride [Moles/Vol] 107 mmol/L Normal 98-109 [facility] Comment on above: Performed By: #### C BCA, CMP, ####[facility] ([id number])[address], [address], [place] [address] CO2 [Moles/Vol] 25 mmol/L Normal 22-32 [facility] Comment on above: Performed By: #### C BCA, CMP, ####[facility] ([id number])[address], [address], [place] [address] Creatinine [Mass/Vol] 1.28 mg/dL Normal 0.60-1.30 [facility] Comment on above: Result Comment: METH OD TRACEABLE TO IDMS STANDARD Performed By: #### C BCA, CMP, ####[facility] ([id number])[address] [address], [place] [address] GFR/1.73 sq M.predicted among non-blacks MDRD (S/P/Bld) [Vol rate/Area] 59 mL/min/{1.73_m2} Low >59 [facility] Comment on above: Result Comment: Reported eGFR is based on the CKD-EPI 2020 equation that does not use a race coefficient. Performed By: #### C JEFF BERNSTEIN, ####[facility] ([id number])[address] [address], [place] [address] Glucose [Mass/Vol] 108 mg/dL High 65-99 [facility] Comment on above: Performed By: #### Rachell BERNSTEIN CMP, ####[facility] ([id number])[address] [address], [place] [address] Potassium [Moles/Vol] 3.7 mmol/L Normal 3.5-5.0 [facility] Comment on above: Performed By: #### Rachell BERNSTEIN [facility], ####[facility] ([id number])[address] [address], [place] [address] Protein [Mass/Vol] 6.4 g/dL Normal 6.0-8.0 [facility] Comment on above: Performed By: #### Rachell BERNSTEIN [facility], ####[facility] ([id number])[address] [address] [address] Sodium [Moles/Vol] 144 mmol/L Normal 134-146 [facility] Comment on above: Performed By: #### Rachell BERNSTEIN [facility], ####[facility] ([id number])[address] [address] [address] Urea nitrogen [Mass/Vol] 15 mg/dL Normal 5-27 [facility] Comment on above: Performed By: #### Rachell BERNSTEIN CMP, ####[facility] ([id number])[address] [address] Calcium.ionized (Bld) [Mass/ Vol]on 07-17-2024 Interpretation and review of laboratory results Abnormal [facility] IONIZED CALCIUM 4.2 mg/dL Low 4.5-5.3 [facility] Comment on above: Performed By: #### C BCA, PINR, 84913-5, 43428-5, CMP, 78882-3, 50114-9 #### [facility] ([id number]) [address] [place] [address] Comprehensive metabolic pane israel 07-17-2024 Albumin [Mass/Vol] 3.7 g/dL 3.2 - 5.3 g/dL [facility] ALP [Catalytic activity/Vol] 50 U/L 39 - 130 U/L [facility] ALT No additional P-5'-P [Catalytic activity/Vol] 48 U/L High 0 - 40 U/L [facility] Anion gap [Moles/Vol] 12 mmol/L 5 - 15 mmol/L [facility] AST [Catalytic activity/Vol] 31 U/L 0 - 41 U/L [facility] Bilirubin [Mass/Vol] 1.2 mg/dL 0.3 - 1.2 mg/dL [facility] Calcium [Mass/Vol] 7.7 mg/dL Low 8.5 - 10. 5 mg/dL [facility] Chloride [Moles/Vol] 107 mmol/L 98 - 109 mmol/L [facility] CO2 [Moles/Vol] 25 mmol/L 22 - 32 mmol/L [facility] Creatinine [Mass/Vol] 1.28 mg/dL 0.60 - 1.30 mg/dL [facility] Comment on above: METHOD TRACEABLE TO IDTN STANDARD eGFR (CKD-EPI)non-race dependent 59 Low - PINF [facility] Comment on above: Reported eGFR is based on the CKD-EPI 2020 equation that does not use a race coefficient. Glucose [Mass/Vol] 108 mg/dL High 65 - 99 mg/dL [facility] Interpretation and review of laboratory results Abnormal [facility] Potassium [Moles/Vol] 3.7 mmol/L 3.5 - 5.0 mmol/L [facility] Protein [Mass/Vol] 6.4 g/dL 6.0 - 8.0 g/dL [facility] Sodium [Moles/Vol] 144 mmol/L 134 - 146 mmol/L [facility] Urea nitrogen [Mass/Vol] 15 mg/dL 5 - 27 mg/dL [facility] ECG 12 leadon 07-17-2024 TRACEMASTERVUE [facility] EP Invasiveon 07-17-2024 [facility] Electrocardiogram, 12-leadon 07-17-2024 TRACEMASTERVUE [facility] Ionized calciumon 07-17-2024 Calcium.ionized (Bld) [Mass/Vol] 4.2 mg/dL Low 4.5 - 5.3 mg/dL [facility] MAGNESIUMon 07-17-2024 Magnesium [Mass/Vol] 1.9 mg/dL Normal 1.8-2.6 [facility] Comment on above: Performed By: #### C BCA, PINR, 55964-2, 10327-7, CMP, 15764-4, 41031-5 #### [facility] ([id number]) [id number] [address] [place] [address] Magnesiumon 07-17-2024 Magnesium [Mass/Vol] 1.9 mg/dL 1.8 - 2.6 mg/dL [facility] No Panel Informationon 07-17 [facility] XR CHEST 1 VWon 07-17-2024 XR CHEST 1 VW XR CHEST 1 VW History: Rule out pneumothorax. Exam/Technique: AP chest upright Comparison: 01/06/2004. Findings: Pacemaker wire. Congested lungs. Patchy airspace disease may be developing although this may be due to expiratory view. Pneumothorax is not detected. IMPRESSION: No evidence of pneumothorax post pacemaker placement. Finalized by Jared Bustillos MD on 07/17/2024 10:31 AM Normal [facility] XR Chest Single viewon 07-17 History: Rule out pneumothorax. Exam/Technique: AP chest upright Comparison: 01/06/2004. Findings: Pacemaker wire. Congested lungs. Patchy airspace disease may be developing although this may be due to expiratory view. Pneumothorax is not detected. IMPRESSION: No evidence of pneumothorax post pacemaker placement. Finalized by Jared Bustillos MD on 07/17/2024 10:31 AM [facility] Jared Bustillos M D - 07/17/2024 History: Rule out pneumothorax. Exam/Technique: AP chest upright Comparison: 01/06/2004. Findings: Pacemaker wire. Congested lungs. Patchy airspace disease may be developing although this may be due to expiratory view. Pneumothorax is not detected. IMPRESSION: No evidence of pneumothorax post pacemaker placement. Finalized by Jared Bustillos MD on 07/17/2024 10:31 AM [facility] Radiology Study observation (narrative) [facility] XR Chest Single viewOrdered By: Jared Bustillos on 07-17-2024 [facility] Work Phone: APTTon 07-16-2024 aPTT Coag (PPP) [Time] 27 s [facility] BASIC METABOLIC PANLon 07-16 Anion gap [Moles/Vol] 9 mmol/L Normal 5-15 [facility] Comment on above: Performed By: #### C RAJWINDER, BMP #### [facility] ([id number]) [address] [place] [address] Calcium [Mass/Vol] 8.4 mg/dL Low 8.5-10.5 [facility] Comment on above: Performed By: #### C RAJWINDER, BMP #### [facility] ([id number]) [address] [place] [address] Chloride [Moles/Vol] 105 mmol/L Normal 98-109 [facility] Comment on above: Performed By: #### C RAJWINDER, BMP #### [facility] ([id number]) [address] [place] [address] CO2 [Moles/Vol] 27 mmol/L Normal 22-32 [facility] Comment on above: Performed By: #### Rachell PURDY, BMP #### [facility] ([id number]) [address] [place] [address] Creatinine [Mass/Vol] 1.39 mg/dL High 0.60-1.30 [facility] Comment on above: Result Comment: METH OD TRACEABLE TO IDMS STANDARD Performed By: #### C RAJWINDER, BMP #### [facility] ([id number]) [address] [place] [address] GFR/1.73 sq M.predicted among non-blacks MDRD (S/P/Bld) [Vol rate/Area] 54 mL/min/{1.73_m2} Low >59 [facility] Comment on above: Result Comment: Reported eGFR is based on the CKD-EPI 2020 equation that does not use a race coefficient. Performed By: #### Rachell PURDY, BMP #### [facility] ([id number]) [address] [place] [address] Glucose [Mass/Vol] 165 mg/dL High 65-99 [facility] Comment on above: Performed By: #### Rachell PURDY, BMP #### [facility] ([id number]) [address] [place] [address] Potassium [Moles/Vol] 3.6 mmol/L Normal 3.5-5.0 [facility] Comment on above: Performed By: #### Rachell PURDY, BMP #### [facility] ([id number]) [address] [place] [address] Sodium [Moles/Vol] 141 mmol/L Normal 134-146 [facility] Comment on above: Performed By: #### Rachell PURDY, BMP #### [facility] ([id number]) [address] [place] [address] Urea nitrogen [Mass/Vol] 14 mg/dL Normal 5-27 [facility] Comment on above: Performed By: #### C BC, BMP #### [facility] ([id number]) [address] [place] [address] CBC AND AUTO DIFFon 07-17-19 25 ABSOLUTE BASOPHIL 0.1 X10E9/L Normal 0.0-0.2 [facility] Comment on above: Performed By: #### C BCA, PINR, 93505-3, 30214-4, CMP, 63693-1, 45693-7 #### [facility] ([id number]) [address] [place] [address] ABSOLUTE NEUTROPHIL 3.6 X10E9/L Normal 1.5-6.6 [facility] Comment on above: Performed By: #### C BCA, PINR, 93538-0, 75955-7, CMP, 74774-2, 89522-4 #### [facility] ([id number]) [address] [place] [address] Basophils/100 WBC (Bld) 0.8 % Normal [facility] Comment on above: Performed By: #### C BCA, PINR, 09497-4, 32445-5, CMP, 70466-5, 04260-2 #### [facility] ([id number]) [address] [place] [address] Eosinophils (Bld) [#/Vol] 0.2 10*3/uL Normal 0.0-0.4 [facility] Comment on above: Performed By: #### C BCA, PINR, 79135-1, 16148-1, CMP, 92410-0, 27689-0 #### [facility] ([id number]) [address] [address] [place] [address] Eosinophils/100 WBC (Bld) 2.2 % Normal [facility] Comment on above: Performed By: #### C BCA, PINR, 89504-6, 06455-8, CMP, 93729-0, 15327-4 #### [facility] ([id number]) [address] [place] [address] Erythrocyte distribution width (RBC) [Ratio] 14.1 % Normal 11.5-15.0 [facility] Comment on above: Performed By: #### C BCA, PINR, 03781-8, 43846-0, CMP, 61399-0, 26672-2 #### [facility] ([id number]) [address] [address] Hematocrit (Bld) [Volume fraction] 37.8 % Low 39-49 [facility] Comment on above: Performed By: #### C BCA, PINR, 41493-6, 19656-4, CMP, 78401-5, 15956-0 #### [facility] ([id number]) [address] [address] Hemoglobin (Bld) [Mass/Vol] 12.9 g/dL Low 13.0-17.0 [facility] Comment on above: Performed By: #### C BCA, PINR, 13206-4, 89594-0, CMP, 43014-0, 26322-5 #### [facility] ([id number]) [address] [address] Lymphocytes (Bld) [#/Vol] 3.2 10*3/uL Normal 1.0-3.5 [facility] Comment on above: Performed By: #### C BCA, PINR, 37490-8, 61602-8, CMP, 70059-0, 66192-6 #### [facility] ([id number]) [address] [place] [address] Lymphocytes/100 WBC (Bld) 40.4 % Normal [facility] Comment on above: Performed By: #### C BCA, PINR, 59678-2, 84620-7, CMP, 00633-0, 86900-4 #### [facility] ([id number]) [address] [place] [address] MCH (RBC) [Entitic mass] 30.7 pg Normal 27-34 [facility] Comment on above: Performed By: #### C BCA, PINR, 95013-6, 04840-2, CMP, 05725-4, 34485-2 #### [facility] ([id number]) [address] [place] [address] MCHC (RBC) [Mass/Vol] 34.1 g/dL Normal 32-36 [facility] Comment on above: Performed By: #### C BCA, PINR, 05203-4, 59986-1, CMP, 76208-3, 79860-4 #### [facility] ([id number]) [address] [place] [address] MCV (RBC) [Entitic vol] 90 fL Normal 80-100 [facility] Comment on above: Performed By: #### C BCA, PINR, 53937-2, 52578-7, CMP, 83165-5, 73077-7 #### [facility] ([id number]) [address] [place] [address] Monocytes (Bld) [#/Vol] 1.0 10*3/uL High 0-0.9 [facility] Comment on above: Performed By: #### C BCA, PINR, 32993-2, 80018-5, CMP, 93615-8, 50889-3 #### [facility] ([id number]) [address] [place] [address] Monocytes/100 WBC (Bld) 12.0 % Normal [facility] Comment on above: Performed By: #### C BCA, PINR, 06465-0, 60835-4, CMP, 22203-3, 11446-3 #### [facility] ([id number]) [address] [place] [address] Neutrophils/100 WBC (Bld) 44.6 % Normal [facility] Comment on above: Performed By: #### C BCA, PINR, 28833-3, 79366-0, CMP, 07429-4, 84949-3 #### [facility] ([id number]) [address] [place] [address] Platelet mean volume (Bld) [Entitic vol] 9.6 fL Normal 7-12 [facility] Comment on above: Performed By: #### C BCA, PINR, 19943-1, 82286-3, CMP, 17089-8, 81209-3 #### [facility] ([id number]) [address] [place] [address] Platelets (Bld) [#/Vol] 136 10*3/uL Low 150-450 [facility] Comment on above: Performed By: #### C BCA, PINR, 77055-9, 74289-8, CMP, 07147-3, 31941-5 #### [facility] ([id number]) [address] [place] [address] RBC COUNT 4.20 X10E12/L Normal 4.10-5.70 [facility] Comment on above: Performed By: #### C BCA, PINR, 32406-8, 44142-0, CMP, 03866-0, 99547-4 #### [facility] ([id number]) [address] [place] [address] WBC (Bld) [#/Vol] 8.0 10*3/uL Normal 4.0-11.0 [facility] Comment on above: Performed By: #### C BCA, PINR, 39455-3, 17630-9, CMP, 42331-0, 58433-9 #### [facility] ([id number]) [address] [facility] [place] [address] CBC auto differentialon 07-03 Basophils (Bld) [#/Vol] 0.1 10*3/uL [facility] Basophils/100 WBC (Bld) 0.8 % [facility] Eosinophils (Bld) [#/Vol] 0.2 10*3/uL [facility] Eosinophils/100 WBC (Bld) 2.2 % [facility] Erythrocyte distribution width (RBC) [Ratio] 14.1 % 11.5 - 15.0 % [facility] Hematocrit (Bld) [Volume fraction] 37.8 % Low 39 - 49 % [facility] Hemoglobin (Bld) [Mass/Vol] 12.9 g/dL Low 13.0 - 17.0 g/dL [facility] Interpretation and review of laboratory results Abnormal [facility] Lymphocytes (Bld) [#/Vol] 3.2 10*3/uL [facility] Lymphocytes/100 WBC (Bld) 40.4 % [facility] MCH (RBC) [Entitic mass] 30.7 pg 27 - 34 pg [facility] MCHC (RBC) [Mass/Vol] 34.1 g/dL 32 - 36 g/dL [facility] MCV (RBC) [Entitic vol] 90 fL 80 - 100 fL [facility] Monocytes (Bld) [#/Vol] 1 10*3/uL High [facility] Monocytes/100 WBC (Bld) 12 % [facility] Neutrophils (Bld) [#/Vol] 3.6 10*3/uL [facility] Neutrophils/100 WBC (Bld) 44.6 % [facility] Platelet mean volume (Bld) [Entitic vol] 9.6 fL 7 - 12 fL [facility] Platelets (Bld) [#/Vol] 136 10*3/uL Low [facility] RBC (Bld) [#/Vol] 4.2 10*6/uL [facility] WBC corrected for nucl RBC Auto (Bld) [#/Vol] 8 [facility] COMPLETE BLOOD COUNTon 07-16 Erythrocyte distribution width (RBC) [Ratio] 14.1 % Normal 11.5-15.0 [facility] Comment on above: Performed By: #### C RAJWINDER, BMP #### [facility] ([id number]) [address] [place] [address] Hematocrit (Bld) [Volume fraction] 37.7 % Low 39-49 [facility] Comment on above: Performed By: #### Rachell PURDY, BMP #### [facility] ([id number]) [address] [facility] [address] [place] [address] Hemoglobin (Bld) [Mass/Vol] 12.5 g/dL Low 13.0-17.0 [facility] Comment on above: Performed By: #### Rachell PURDY, BMP #### [facility] ([id number]) [address] [place] [address] MCH (RBC) [Entitic mass] 30.1 pg Normal 27-34 [facility] Comment on above: Performed By: #### Rcahell PURDY, BMP #### [facility] ([id number]) [address] [place] [address] MCHC (RBC) [Mass/Vol] 33.1 g/dL Normal 32-36 [facility] Comment on above: Performed By: #### Rachell PURDY, BMP #### [facility] ([id number]) [address] [place] [address] MCV (RBC) [Entitic vol] 91 fL Normal 80-100 [facility] Comment on above: Performed By: #### Rachell PURDY, BMP #### [facility] ([id number]) [address] [place] [address] Platelet mean volume (Bld) [Entitic vol] 10.4 fL Normal 7-12 [facility] Comment on above: Performed By: #### Rachell PURDY, BMP #### [facility] ([id number]) [address] [place] [address] Platelets (Bld) [#/Vol] 140 10*3/uL Low 150-450 [facility] Comment on above: Performed By: #### Rachell PURDY, BMP #### [facility] ([id number]) [address] [place] [address] RBC COUNT 4.16 X10E12/L Normal 4.10-5.70 [facility] Comment on above: Performed By: #### Rachell PURDY, BMP #### [facility] ([id number]) [address] [place] [address] WBC (Bld) [#/Vol] 8.4 10*3/uL Normal 4.0-11.0 [facility] Comment on above: Performed By: #### Rachell PURDY, BMP #### [facility] ([id number]) [address] [place] [address] COMPREHENSIVE METABOLIC PANE [place] 07-16-2024 Albumin [Mass/Vol] 4.2 g/dL Normal 3.2-5.3 [facility] Comment on above: Performed By: #### C BCA, PINR, 13491-6, 26984-0, CMP, 12568-2, 26793-5 #### [facility] ([id number]) [address] [place] [address] ALP [Catalytic activity/Vol] 53 U/L Normal 39-130 [facility] Comment on above: Performed By: #### C BCA, PINR, 74389-4, 58687-7, CMP, 57207-5, 47632-3 #### [facility] ([id number]) [address] [place] [address] ALT [Catalytic activity/Vol] 61 U/L High 0-40 [facility] Comment on above: Performed By: #### C BCA, PINR, 69664-8, 32570-3, CMP, 78848-4, 93416-0 #### [facility] ([id number]) [address] [place] [address] Anion gap [Moles/Vol] 10 mmol/L Normal 5-15 [facility] Comment on above: Performed By: #### C BCA, PINR, 16593-0, 31197-1, CMP, 78600-9, 87616-4 #### [facility] ([id number]) [address] [place] [address] AST [Catalytic activity/Vol] 42 U/L High 0-41 [facility] Comment on above: Performed By: #### C BCA, PINR, 28410-4, 37969-2, CMP, 59204-7, 88835-6 #### [facility] ([id number]) [address] [place] [address] Bilirubin [Mass/Vol] 0.9 mg/dL Normal 0.3-1.2 [facility] Comment on above: Performed By: #### C BCA, PINR, 10962-1, 58412-5, CMP, 59383-0, 05412-8 #### [facility] ([id number]) [address] [place] [address] Calcium [Mass/Vol] 8.4 mg/dL Low 8.5-10.5 [facility] Comment on above: Performed By: #### C BCA, PINR, 34854-5, 16563-3, CMP, 46373-4, 61552-1 #### [facility] ([id number]) [address] [place] [address] Chloride [Moles/Vol] 106 mmol/L Normal 98-109 [facility] Comment on above: Performed By: #### C BCA, PINR, 88789-1, 23353-5, CMP, 01805-7, 36155-6 #### [facility] ([id number]) [address] [place] [address] CO2 [Moles/Vol] 26 mmol/L Normal 22-32 [facility] Comment on above: Performed By: #### C BCA, PINR, 83106-3, 70832-9, CMP, 96003-2, 41262-0 #### [facility] ([id number]) [address] [place] [address] Creatinine [Mass/Vol] 1.44 mg/dL High 0.60-1.30 [facility] Comment on above: Result Comment: METH OD TRACEABLE TO IDMS STANDARD Performed By: #### C BCA, PINR, 74668-2, 28264-9, CMP, 09092-2, 91346-5 #### [facility] ([id number]) [address] [place] [address] GFR/1.73 sq M.predicted among non-blacks MDRD (S/P/Bld) [Vol rate/Area] 52 mL/min/{1.73_m2} Low >59 [facility] Comment on above: Result Comment: Reported eGFR is based on the CKD-EPI 2020 equation that does not use a race coefficient. Performed By: #### C BCA, PINR, 93317-9, 93231-8, CMP, 09759-3, 64116-0 #### [facility] ([id number]) [address] [place] [address] Glucose [Mass/Vol] 189 mg/dL High 65-99 [facility] Comment on above: Performed By: #### C BCA, PINR, 43049-6, 16400-3, CMP, 60017-6, 72120-6 #### [facility] ([id number]) [address] [place] [address] Potassium [Moles/Vol] 3.8 mmol/L Normal 3.5-5.0 [facility] Comment on above: Performed By: #### C BCA, PINR, 28946-7, 07768-2, CMP, 62268-1, 04708-6 #### [facility] ([id number]) [address] [place] [address] Protein [Mass/Vol] 6.8 g/dL Normal 6.0-8.0 [facility] Comment on above: Performed By: #### C BCA, PINR, 06618-8, 83268-4, CMP, 29595-5, 70119-6 #### [facility] ([id number]) [address] [place] [address] Sodium [Moles/Vol] 142 mmol/L Normal 134-146 [facility] Comment on above: Performed By: #### C BCA, PINR, 66441-4, 65534-4, CMP, 67109-3, 12158-5 #### [facility] ([id number]) [address] [place] [address] Urea nitrogen [Mass/Vol] 14 mg/dL Normal 5-27 [facility] Comment on above: Performed By: #### C BCA, PINR, 14005-5, 64759-8, CMP, 72277-1, 46861-6 #### [facility] ([id number]) [address] [place] [address] Cardiac echo study Procedure Ordered By: Gil Traylor on 07-16-2024 Aortic valve Mean systole pressure gradient by US.doppler derived full Bernoulli 4 mmHg [facility] [employer] Work Phone: Aortic valve Orifice area by US 2.49 [employer] [facility] Work Phone: Aortic valve Peak systolic flow by US.doppler 147 cm/s [facility] [employer] Work Phone: AV peak gradient 8.64 mmHg [facility] [employer] [facility] Work Phone: AV Velocity Ratio 0.79 [facility] Work Phone: AV VTI 28.9 cm [facility] [employer] [facility] Work Phone: E wave deceleration time 289 msec [facility] [employer] Work Phone: E/A ratio 1.57 [facility] [employer] [facility] Work Phone: Est. RA pressure 3 mmHg [facility] [employer] Work Phone: FS 41 % 28 - 44 % [facility] [facility] Work Phone: Interventricular Septum Diastolic Thickness by 2D 10 cm [facility] [employer] Work Phone: IVS 1 cm 0.6 - 1.1 cm [facility] Work Phone: LA size 4.2 cm [facility] Work Phone: Left Ventricle Mass [id number] g [facility] [employer] Work Phone: Left ventricular Ejection fraction by 2D echo.visual estimate 72 % [facility] [employer] Work Phone: Left ventricular Ejection fraction by US.2D+Calculated by biplane method of disks 72 % [facility] [employer] Work Phone: LV Diastolic Volume 118 mL [facility] [employer] Work Phone: LV RWT 2D 51.28 [facility] [employer] Work Phone: LV Systolic Volume 32.9 mL [facility] [employer] Work Phone: LVIDd 3.9 cm 5.47 - 7.60 cm [facility] [employer] Work Phone: LVIDs 2.3 cm 3.20 - 4.85 cm [facility] [employer] Work Phone: LVOT diameter 2 cm [facility] Work Phone: LVOT peak syeda 1.08 m/s [facility] Work Phone: LVOT peak VTI 22.9 cm [facility] Work Phone: LVOT stroke volume 71.94 ml [facility] Work Phone: MV Peak A Syeda 111 cm/s [facility] Work Phone: MV Peak E Syeda 174 cm/s [facility] Work Phone: MV pressure 1/2 time 85 ms [facility] Work Phone: MV TDI E' (medial) 6.42 cm/s [facility] Work Phone: MV valve area p 1/2 method 2.59 cm2 [facility] Work Phone: PW 1 cm 0.6 - 1.1 cm [facility] Work Phone: TAPSE 1.48 cm [facility] Work Phone: TDI 9.03 cm/s [facility] Work Phone: TR peak gradient 51.27 mmHg [facility] Work Phone: TR Peak Syeda 3.6 m/s [facility] Work Phone: Valve area - Index 1.2 [facility] Work Phone: ZLVIDD -5.03 [facility] Work Phone: ZLVIDS -4.26 [facility] Work Phone: [facility] Work Phone: Cardiac echo study Procedure on 07-16-2024 Left Ventricle: Left ventricle appears normal in [...] left ventricular wall motion is globally hyperkinetic. [facility] Radiology Study observation (narrative) [facility] Comprehensive metabolic pane israel 07-16-2024 Albumin [Mass/Vol] 4.2 g/dL 3.2 - 5.3 g/dL [facility] ALP [Catalytic activity/Vol] 53 U/L 39 - 130 U/L [facility] ALT No additional P-5'-P [Catalytic activity/Vol] 61 U/L High 0 - 40 U/L [facility] Anion gap [Moles/Vol] 10 mmol/L 5 - 15 mmol/L [facility] AST [Catalytic activity/Vol] 42 U/L High 0 - 41 U/L [facility] Bilirubin [Mass/Vol] 0.9 mg/dL 0.3 - 1.2 mg/dL [facility] Calcium [Mass/Vol] 8.4 mg/dL Low 8.5 - 10. 5 mg/dL [facility] Chloride [Moles/Vol] 106 mmol/L 98 - 109 mmol/L [facility] CO2 [Moles/Vol] 26 mmol/L 22 - 32 mmol/L [facility] Creatinine [Mass/Vol] 1.44 mg/dL High 0.60 - 1.30 mg/dL [facility] Comment on above: METHOD TRACEABLE TO [facility] STANDARD eGFR (CKD-EPI)non-race dependent 52 Low - PINF [facility] Comment on above: Reported eGFR is based on the CKD-EPI 2020 equation that does not use a race coefficient. Glucose [Mass/Vol] 189 mg/dL High 65 - 99 mg/dL [facility] Interpretation and review of laboratory results Abnormal [facility] Potassium [Moles/Vol] 3.8 mmol/L 3.5 - 5.0 mmol/L [facility] Protein [Mass/Vol] 6.8 g/dL 6.0 - 8.0 g/dL [facility] Sodium [Moles/Vol] 142 mmol/L 134 - 146 mmol/L [facility] Urea nitrogen [Mass/Vol] 14 mg/dL 5 - 27 mg/dL [facility] ECG 12 leadOrdered By: Saira Vanessa on 07-16-2024 [facility] Glucose Glucometer (BldC) [M ass/Vol]on 07-16-2024 Glucose [Mass/Vol] 157 mg/dL High 65 - 99 mg/dL [facility] Interpretation and review of laboratory results Abnormal [facility] Glucose [Mass/Vol] 157 mg/dL High 65-99 [facility] Lactateon 07-16-2024 Lactate (P yin) [Moles/Vol] 1.2 mmol/L 0.4 - 2.0 mmol/L [facility] Lactate (P yin) [Moles/Vol]o n 07-16-2024 [facility] Lactate [Moles/Vol] 1.2 mmol/L Normal 0.4-2.0 [facility] Comment on above: Performed By: #### 3 2132-04 ####[facility] ([id number])[address], [address] [place] [address] Interpretation and review of laboratory results Abnormal [facility] LACTATE W/REFLEX 2.7 mmol/L High 0.4-2.[address] [facility] Comment on above: Performed By: #### C DAY, PINR, 89059-9, 36982-4, CMP, 21147-8, 51473-4 #### [facility] ([id number]) [address], [address] [place] [address] Lactate w/ Reflexon 07-17-19 Lactate (P yin) [Moles/Vol] 2.7 mmol/L High 0.4 - 2.0 mmol/L [facility] MAGNESIUMon 07-16-2024 Magnesium [Mass/Vol] 2.0 mg/dL Normal 1.8-2.6 [facility] Comment on above: Performed By: #### T HYR, 62036-0, 2777-1 ####[facility] ([id number])[address], [address] [place] [address] Magnesium [Mass/Vol] 1.9 mg/dL Normal 1.8-2.6 [facility] Comment on above: Performed By: #### C BCA, PINR, 18679-6, 90070-6, CMP, 13359-4, 55215-9 #### [facility] ([id number]) [address], [address] [place] [address] Magnesiumon 07-16-2024 Magnesium [Mass/Vol] 2 mg/dL 1.8 - 2.6 mg/dL [facility] Magnesium [Mass/Vol] 1.9 mg/dL 1.8 - 2.6 mg/dL [facility] Natriuretic peptide B [Mass/ Vol]on 07-16-2024 Interpretation and review of laboratory results Abnormal [facility] Natriuretic peptide B (Bld) [Mass/Vol] 790 pg/mL High NINF - 100.0 pg/mL [facility] Natriuretic peptide B (Bld) [Mass/Vol] 790 pg/mL High <100.0 [facility] Comment on above: Performed By: #### C BCA, PINR, 41960-8, 38069-8, CMP, 99115-5, 70904-5 #### [facility] ([id number]) [address], [address] [place] [address] No Panel Informationon 07-16 [facility] PHOSPHORUSon 07-16-2024 Phosphate [Mass/Vol] 4.2 mg/dL Normal 2.4-4.9 [facility] Comment on above: Result Comment: SPEC IMEN HEMOLYZED, RESULTS INCREASED SLIGHTLY HEMOLYZED Performed By: #### T HYR, 54543-8, 2777-1 ####[facility] ([id number])[address], [address] [place] [address] POTASSIUMon 07-16-2024 Potassium [Moles/Vol] 3.7 mmol/L Normal 3.5-5.0 [facility] Comment on above: Performed By: #### 2 823-3 ####[facility] ([id number])[address], [address] [place] [address] PROTIME AND INRon 07-16-2024 INR Coag (PPP) [Relative time] 1.0 {INR} Normal 0.9-1.2 [facility] Comment on above: Performed By: #### C BCA, PINR, 66361-8, 62451-5, CMP, 13480-1, 60908-6 #### [facility] ([id number]) [address], [address] [place] [address] PT Coag (PPP) [Time] 11.8 s Normal 9.8-13.2 [facility] Comment on above: Performed By: #### C BCA, PINR, 83498-5, 08275-2, CMP, 25906-1, 17900-0 #### [facility] ([id number]) [address], [address] [place] [address] Phosphoruson 07-16-2024 Phosphate [Mass/Vol] 4.2 mg/dL 2.4 - 4.9 mg/dL [facility] Comment on above: SPECIMEN HEMOLYZED, RESULTS INCREASED SLIGHTLY HEMOLYZED Potassiumon 07-16-2024 Potassium [Moles/Vol] 3.7 mmol/L 3.5 - 5.0 mmol/L [facility] Potassium [Moles/Vol]on 07-03 [facility] Protime & INRon 07-16-2024 INR Coag (PPP) [Relative time] 1 {INR} [facility] PT Coag (PPP) [Time] 11.8 s [facility] THYROID PROFILEon 07-16-2024 Free T4 [Mass/Vol] 0.89 ng/dL Normal 0.61-1.60 [facility] Comment on above: Performed By: #### T HYR, , 2777- ####[facility] ([id number])[address], [address] [address] TSH 1.96 uIU/mL Normal 0.49-4.67 [facility] Comment on above: Performed By: #### T HYR, , 2777- ####[facility] ([id number])[address], [address] [address] Thyroid profile includes TSH FT4on 07-16-2024 Free T4 [Mass/Vol] 0.89 ng/dL 0.61 - 1. 60 ng/dL [facility] TSH Qn 1.96 m[IU]/L [facility] Troponin I, High Sensitivity on 07-16-2024 Troponin I.cardiac High sensitivity method [Mass/Vol] 19 ng[facility] Troponin I.cardiac High sensitivity method [Mass/Vol] 19 ng/L [facility]/L [facility] Troponin I, High Sensitivity 1 Houron 07-16-2024 Troponin I.cardiac High sensitivity method [Mass/Vol] 18 ng/L NINF - 21 ng/L [facility] Troponin I.cardiac High sens itivity method [Mass/Vol]on 07-16-2024 [facility] TROPONIN I, HIGH SENSITIVITY 19 ng/L Normal <21 [facility] Comment on above: Performed By: #### 8 9579-7 ####[facility] ([id number])[address] [facility], [address] [place] [address] [facility] 1 HOUR TROP I, HIGH SENSITIVITY 18 ng/L Normal <21 [facility] Comment on above: Performed By: #### 8 9579-7 ####[facility] ([id number])[address] [place] [address] [facility] TROPONIN I, HIGH SENSITIVITY 19 ng/L Normal <21 [facility] Comment on above: Performed By: #### 8 9579-7 #### [facility] ([id number]) [address] [place] [address] aPTT Coag (PPP) [Time]on aPTT Coag (Bld) [Time] 27 s Normal 26-37 [facility] Comment on above: Performed By: #### C BCA, PINR, 34962-7, 09287-4, CMP, 23115-0, 37185-5 #### [facility] ([id number]) [address] [facility], [address] [place] [address] CT CTA COR ARTERIES W OR WO SCORINGon 07-13-2024 CT CTA COR ARTERIES W OR WO SCORING CT CTA COR ARTERIES W OR WO SCORING CLINICAL INFORMATION: Abnormal EKG. Cardiac catheterization 11/25/2021, WING COVERER of the distal to apical LAD. TECHNIQUE: Computed tomography (CT) of the heart was obtained using electrocardiography (ECG) triggering. 100 mL of Omni 350 contrast was administered intravenously. In preparation for the examination, the patient received 20 mg oral metoprolol for heart rate/rhythm control and 0.4 mg sublingual nitroglycerin tablet for coronary vasodilation. There were no complications 3-D volume rendered maximum intensity projection images were generated and reviewed under concurrent physician supervision on an independent workstation.. CT Derived Fractional Flow [place] (FFRct) Analysis: FFRct is only obtained on studies with a high coronary calcium burden or in patients with an intermediate grade coronary stenosis to assess the physiologic significance of anatomic stenoses (measured 1-2 cm distal to the stenosis). * FFRct greater than 0.80 = normal. * FFRct 0.76-0.80 = intermediate range and features of the stenosis including location (proximal vs. distal), presence of high risk plaque or change in FFRct value across the lesion along with clinical presentation should be utilized to determine need for invasive angiography. * FFRct less than 0.75 = abnormal and a follow up invasive angiography is generally recommended. All CT scans at this facility use dose modulation, iterative reconstruction, and/or weight based dosing when appropriate to reduce radiation dose to as low as reasonably achievable. COMPARISON: Cardiac catheterization 11/25/2021 EXTRACARDIAC FINDINGS: The visualized lungs are clear and mediastinum is unremarkable. Images of the upper abdomen demonstrate within normal limits. The pulmonary arteries are normal. The visualized thoracic aorta is normal. CARDIAC MORPHOLOGY: The right atrium is normal. The right ventricle is normal. The left atrium is normal. The left ventricle is normal. Valves grossly unremarkable. The pericardium is normal CALCIUM SCORE: Agatston Score: The total (aggregate) calcium score using the AJ-130 method is 1518. Total volume score is 1141. 90% of similar patients have less coronary artery calcium {this is reported using the interactive GOMEZ form found at http://www.gomez-nhlbi. org} Individual major vessel AJ-130 scores are: LM = 67.2 LAD = 876.4 LCX = 304.0 RCA/PDA = 270.0 Other = [address] Angiogram: The overall quality of the CT angiographic examination is fair. Motion artifacts the RCA. Coronary Artery Angiogram Findings: Stenoses are reported as maximum percentage diameter stenosis. Stenosis grading is reported using the following scheme: Normal: no stenosis Mild: 1-49% stenosis Moderate: 50-70% stenosis Severe: >70% stenosis Occluded The coronary artery system is right dominant with normal origins. The LM has mild stenosis with mixed plaque. The proximal LAD and first diagonal branch (D1) have mild stenosis with mixed plaque. The mid LAD, D2 and D3 branches) have mild stenosis with mixed plaque. WING COVERER distal LAD The LCx and its obtuse marginal (OM) branches of mild stenosis from mixed plaque. The RCA partly obscured by artifact, at least moderate stenosis mid RCA from mixed plaque. IMPRESSION: Known WING COVERER distal LAD. Moderate stenosis in the RCA coronary artery mid segment has a high likelihood of lesion-specific ischemia with an FFRCT value of 0.69. FFRct is an FDA-approved noninvasive technique for defining the probability of flow-limiting coronary artery stenoses is that correlates with invasive FFR measurements. However, as with all testing clinical correlation is advised. FFRct values: Greater than 0.80: Low likelihood of flow-limitation. 0.75-0.80 Borderline for flow-limitation. Less than 0.75 High likelihood of flow-limitation. Total calcium score of 1517.5; 90% of similar patients have less coronary artery calcium. The coronary arteries and cardiac structures were co-interpreted by Dr. Kam Pelletier MD of the department of radiology and Dr. Daniel the cardiology Department. The extracardiac structures including the lungs were solely interpreted by Dr. Kam Pelletier MD of the department of radiology. __ Calcium Score interpretation and guidelines for asymptomatic individuals, 45 - 75 years of age are as follows: Estimated Risk of a Total Score Relative Risk Coronary Event Each Year __ 0 very low risk 2 per 1000 1-10 low risk 5 per 1000 11-100 intermediate risk 5 to 20 per 1000 101-400 moderately high risk more than 2 per 100 over 400 high risk between 2 and 5 per 100; approximately 15% chance of significant blockages; consideration should be given to obtaining stress echo or stress nuclear testing. __ Workstation[facility] (more content not included)... Normal [facility] CT FFRCT HEARTFLOWon [address] FFRCT HEARTFLOW CLINICAL INFORMATION: Abnormal EKG. Cardiac catheterization 11/25/2021, WING COVERER of the distal to apical LAD. TECHNIQUE: Computed tomography (CT) of the heart was obtained using electrocardiography (ECG) triggering. 100 mL of Omni 350 contrast was administered intravenously. In preparation for the examination, the patient received 20 mg oral metoprolol for heart rate/rhythm control and 0.4 mg sublingual nitroglycerin tablet for coronary vasodilation. There were no complications 3-D volume rendered maximum intensity projection images were generated and reviewed under concurrent physician supervision on an independent workstation.. CT Derived Fractional Flow [place] (FFRct) Analysis: FFRct is only obtained on studies with a high coronary calcium burden or in patients with an intermediate grade coronary stenosis to assess the physiologic significance of anatomic stenoses (measured 1-2 cm distal to the stenosis). * FFRct greater than 0.80 = normal. * FFRct 0.76-0.80 = intermediate range and features of the stenosis including location (proximal vs. distal), presence of high risk plaque or change in FFRct value across the lesion along with clinical presentation should be utilized to determine need for invasive angiography. * FFRct less than 0.75 = abnormal and a follow up invasive angiography is generally recommended. All CT scans at this facility use dose modulation, iterative reconstruction, and/or weight based dosing when appropriate to reduce radiation dose to as low as reasonably achievable. COMPARISON: Cardiac catheterization 11/25/2021 EXTRACARDIAC FINDINGS: The visualized lungs are clear and mediastinum is unremarkable. Images of the upper abdomen demonstrate within normal limits. The pulmonary arteries are normal. The visualized thoracic aorta is normal. CARDIAC MORPHOLOGY: The right atrium is normal. The right ventricle is normal. The left atrium is normal. The left ventricle is normal. Valves grossly unremarkable. The pericardium is normal CALCIUM SCORE: Agatston Score: The total (aggregate) calcium score using the AJ-130 method is 1518. Total volume score is 1141. 90% of similar patients have less coronary artery calcium {this is reported using the interactive GOMEZ form found at http://www.gomez-nhlbi. org} Individual major vessel AJ-130 scores are: LM = 67.2 LAD = 876.4 LCX = 304.0 RCA/PDA = 270.0 Other = [address] Angiogram: The overall quality of the CT angiographic examination is fair. Motion artifacts the RCA. Coronary Artery Angiogram Findings: Stenoses are reported as maximum percentage diameter stenosis. Stenosis grading is reported using the following scheme: Normal: no stenosis Mild: 1-49% stenosis Moderate: 50-70% stenosis Severe: >70% stenosis Occluded The coronary artery system is right dominant with normal origins. The LM has mild stenosis with mixed plaque. The proximal LAD and first diagonal branch (D1) have mild stenosis with mixed plaque. The mid LAD, D2 and D3 branches) have mild stenosis with mixed plaque. WING COVERER distal LAD The LCx and its obtuse marginal (OM) branches of mild stenosis from mixed plaque. The RCA partly obscured by artifact, at least moderate stenosis mid RCA from mixed plaque. IMPRESSION: Known WING COVERER distal LAD. Moderate stenosis in the RCA coronary artery mid segment has a high likelihood of lesion-specific ischemia with an FFRCT value of 0.69. FFRct is an FDA-approved noninvasive technique for defining the probability of flow-limiting coronary artery stenoses is that correlates with invasive FFR measurements. However, as with all testing clinical correlation is advised. FFRct values: Greater than 0.80: Low likelihood of flow-limitation. 0.75-0.80 Borderline for flow-limitation. Less than 0.75 High likelihood of flow-limitation. Total calcium score of 1517.5; 90% of similar patients have less coronary artery calcium. The coronary arteries and cardiac structures were co-interpreted by Dr. Kam Pelletier MD of the department of radiology and Dr. Daniel the cardiology Department. The extracardiac structures including the lungs were solely interpreted by Dr. Kam Pelletier MD of the department of radiology. __ Calcium Score interpretation and guidelines for asymptomatic individuals, 45 - 75 years of age are as follows: Estimated Risk of a Total Score Relative Risk Coronary Event Each Year __ 0 very low risk 2 per 1000 1-10 low risk 5 per 1000 11-100 intermediate risk 5 to 20 per 1000 101-400 moderately high risk more than 2 per 100 over 400 high risk between 2 and 5 per 100; approximately 15% chance of significant blockages; consideration should be given to obtaining stress echo or stress nuclear testing. __ Finalized b (more content not included)... Normal [facility] HGB A1C (GLYCO-HGB)on 2024 Glucose [Mass/Vol] 154 mg/dL Normal [facility] Comment on above: Performed By: #### H A1C #### [facility] ([id number]) [address] [place] [address] HbA1c (Bld) [Mass fraction] 7.0 % High 4.4-5.6 [facility] Comment on above: Result Comment: NOTE ADA Guidelines Result HgbA1c Normal : less than 5.7 % Prediabetes : 5.7 % to 6.4 % Diabetes : > 6.4 % Use with caution in patients with abnormal hemoglobin variants as the half-life of red blood cells and in vivo glycation rates are affected. Performed By: #### H A1C #### [facility] ([id number]) [address] [place] [address] CREATININEon 06-26-2024 Creatinine [Mass/Vol] 1.19 mg/dL Normal 0.60-1.30 [facility] Comment on above: Result Comment: METH OD TRACEABLE TO IDMS STANDARD Performed By: #### C RT #### [facility] ([id number]) [address] [place] [address] GFR/1.73 sq M.predicted among non-blacks MDRD (S/P/Bld) [Vol rate/Area] 65 mL/min/{1.73_m2} Normal >59 [facility] Comment on above: Result Comment: Reported eGFR is based on the CKD-EPI 2020 equation that does not use a race coefficient. Performed By: #### C RT #### [facility] ([id number]) [address] [place] [address] POCT EKGon 06-26-2024 [facility] CNOVSPon 04-20-2024 CNOVSP Visit (SP) Office ([place]) MORRIS BELLE ([id number]) 1950 M Date Time Provider Department 04/20/24 10:00 AM CASSIE OWEN During your visit today, we recorded the following information about you: Temperature Pulse Respiration Blood pressure 97.3 degrees 53/minute 16/minute 126/58 Weight Height 93.5 kg 1.676 m Cassie Owen PA-C 04/20/2024 10:39 AM Signed NAME: Morris Belle CLINIC NO.: [id number] DATE OF SERVICE: April 20, 2024 Some elements in this clinic note that are critical to medical decision making have been carefully reviewed and included from a prior clinic note dated: April 15, 2023 (Bhupendra) Referring Provider: Taras Wright Additional Clinicians involved in Morris Belle's care: DIAGNOSIS: MGUS ASSESSMENT: 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 No signs of hypercalcemia, renal failure, anemia, bony lesions. M-protein is low at 0.49 IgG kappa and K/L ratio is stable. Very unlikely his neuropathy is paraprotein related. IgM was normal. Will monitor Neuropathy: No change in neuropathy, no obvious cause. URI: following with PCP PLAN: Labs 1 week prior to return RTC 1 year HPI: Updated Visit, April 20, 2024: Sinus congestion and cough. Morning it is green but as day goes on it clears. No fevers. Waiting to hear from PCP Belkis. Toes remain without feeling. No pain. It hasn't progressed. He has no new pain, fatigue or weight loss. He is trying to lose weight. Updated Visit, April 15, 2023: No real [...] his right leg. 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 - REVIEW OF SYSTEMS Per HPI and otherwise negative by full review of organ systems. - ECOG PERFORMANCE STATUS: 0 PHYSICAL EXAMINATION: Vitals: BP 126/58 Pulse 53 Temp (Src) 97.3 (Temporal) Resp 16 Ht 5' 5.984 (1.68m) Wt 206 lb 2.1 oz (93.5kg) SpO2 95% BMI 33.29 kg/(m2). Body surface area is 2.09 meters squared. General: Alert and oriented, no distress, pleasant and cooperative. Heart: Regular, normal S1 and S2, no murmurs, rubs, or gallops Lungs: Clear to auscultation bilaterally Abdomen: Benign Extremities: Feet/ankles without edema, posterior tibial pulses full and symmetrical - ALLERGIES: ALLERGIES No Known Allergies MEDICATIONS: [...] Take 300 mg by mouth twice daily. - LABORATORY VALUES: WBC (k/uL) Date Value 04/13/2024 8.26 RBC (m/uL) Date Value 04/13/2024 4.29 Hemoglobin (g/dL) Date Value 04/13/2024 13.6 Hematocrit ( (more content not included)... Normal [facility] B2 Microglob SerPl-mCncon Maqp-3-Tmdqoiiefafv n [Mass/Vol] 2.4 ug/mL Normal <3.1 [facility] Comment on above: Order Comment: Speci men Type: BLOOD SPECIMEN Ordering Facility: Address: [address] [place] [address] Result Comment: Beta -2 Microglobulin test is performed using the [employer] immunoturbidimetric method. Results obtained with different methods or kits cannot be used interchangeably. Performed By: #### 2 885-2, 195- #### [facility] CLIA [id number] [address] [place] [address] [place] CBC W Auto Differential pane l (Bld)on 04-13-2024 Basophils (Bld) [#/Vol] 0.08 10*3/uL Normal <0.11 [facility] Comment on above: Order Comment: Speci men Type: BLOOD SPECIMEN Ordering Facility: Address: [address] [place] [address] Performed By: #### K LFRS #### [facility] CLIA [id number] [address] [place] [address] [place] Basophils/100 WBC (Bld) 1.0 % Normal [facility] Comment on above: Order Comment: Speci men Type: BLOOD SPECIMEN Ordering Facility: Address: [address] [place] [address] Performed By: #### K LFRS #### [facility] CLIA [id number] [address] [place] [address] [place] Differential cell count method Nom (Bld) Auto Normal [facility] Comment on above: Order Comment: Speci men Type: BLOOD SPECIMEN Ordering Facility: Address: [address] [place] [address] Performed By: #### K LFRS #### [facility] CLIA [id number] [address] [place] [address] [place] Eosinophils (Bld) [#/Vol] 0.47 10*3/uL High <0.46 [facility] Comment on above: Order Comment: Speci men Type: BLOOD SPECIMEN Ordering Facility: Address: [address] [place] [address] Performed By: #### K LFRS #### [facility] CLIA [id number] [address] [place] [address] [place] Eosinophils/100 WBC (Bld) 5.7 % Normal [facility] Comment on above: Order Comment: Speci men Type: BLOOD SPECIMEN Ordering Facility: Address: [address] [place] [address] Performed By: #### K LFRS #### [facility] CLIA [id number] [address] [place] [address] [place] Erythrocyte distribution width (RBC) [Ratio] 12.6 % Normal 11.5-15.0 [facility] Comment on above: Order Comment: Speci men Type: BLOOD SPECIMEN Ordering Facility: Address: [address] [place] [address] Performed By: #### K LFRS #### [facility] CLIA [id number] [address] [place] [address] [place] Hematocrit (Bld) [Volume fraction] 39.2 % Normal 39.0-51.0 [facility] Comment on above: Order Comment: Speci men Type: BLOOD SPECIMEN Ordering Facility: Address: [address] [place] [address] Performed By: #### K LFRS #### [facility] CLIA [id number] [address] [place] [address] [place] Hemoglobin (Bld) [Mass/Vol] 13.6 g/dL Normal 13.0-17.0 [facility] Comment on above: Order Comment: Speci men Type: BLOOD SPECIMEN Ordering Facility: Address: [address] [place] [address] Performed By: #### K LFRS #### [facility] CLIA [id number] [address] [place] [address] [place] Immature granulocytes (Bld) [#/Vol] 0.03 10*3/uL Normal <0.10 [facility] Comment on above: Order Comment: Speci men Type: BLOOD SPECIMEN Ordering Facility: Address: [address] [place] [address] Performed By: #### K LFRS #### [facility] CLIA [id number] [address] [place] [address] [place] Immature granulocytes/100 WBC (Bld) 0.4 % Normal [facility] Comment on above: Order Comment: Speci men Type: BLOOD SPECIMEN Ordering Facility: Address: [address] [place] [address] Performed By: #### K LFRS #### [facility] CLIA [id number] [address] [place] [address] [place] Lymphocytes (Bld) [#/Vol] 3.17 10*3/uL Normal 1.00-4.00 [facility] Comment on above: Order Comment: Speci men Type: BLOOD SPECIMEN Ordering Facility: Address: [address] [place] [address] Performed By: #### K LFRS #### [facility] CLIA [id number] [address] [place] [address] [place] Lymphocytes/100 WBC (Bld) 38.4 % Normal [facility] Comment on above: Order Comment: Speci men Type: BLOOD SPECIMEN Ordering Facility: Address: [address] [place] [address] Performed By: #### K LFRS #### [facility] CLIA [id number] [address] [place] [address] [place] MCH (RBC) [Entitic mass] 31.7 pg Normal 26.0-34.0 [facility] Comment on above: Order Comment: Speci men Type: BLOOD SPECIMEN Ordering Facility: Address: [address] [place] [address] Performed By: #### K LFRS #### [facility] CLIA [id number] [address] [place] [address] [place] MCHC (RBC) [Mass/Vol] 34.7 g/dL Normal 30.5-36.0 [facility] Comment on above: Order Comment: Speci men Type: BLOOD SPECIMEN Ordering Facility: Address: [address] [place] [address] Performed By: #### K LFRS #### [facility] CLIA [id number] [address] [place] [address] [place] MCV (RBC) [Entitic vol] 91.4 fL Normal 80.0-100.0 [facility] Comment on above: Order Comment: Speci men Type: BLOOD SPECIMEN Ordering Facility: Address: [address] [place] [address] Performed By: #### K LFRS #### [facility] CLIA [id number] [address] [place] [address] [place] Monocytes (Bld) [#/Vol] 1.01 10*3/uL High <0.87 [facility] Comment on above: Order Comment: Speci men Type: BLOOD SPECIMEN Ordering Facility: Address: [address] [place] [address] Performed By: #### K LFRS #### [facility] CLIA [id number] [address] [place] [address] [place] Monocytes/100 WBC (Bld) 12.2 % Normal [facility] Comment on above: Order Comment: Speci men Type: BLOOD SPECIMEN Ordering Facility: Address: [address] [place] [address] Performed By: #### K LFRS #### [facility] CLIA [id number] [address] [place] [address] [place] Neutrophils (Bld) [#/Vol] 3.50 10*3/uL Normal 1.45-7.50 [facility] Comment on above: Order Comment: Speci men Type: BLOOD SPECIMEN Ordering Facility: Address: [address] [place] [address] Performed By: #### K LFRS #### [facility] CLIA [id number] [address] [place] [address] [place] Neutrophils/100 WBC (Bld) 42.3 % Normal [facility] Comment on above: Order Comment: Speci men Type: BLOOD SPECIMEN Ordering Facility: Address: [address] [place] [address] Performed By: #### K LFRS #### [facility] CLIA [id number] [address] [place] [address] [place] Nucleated RBC (Bld) [#/Vol] 10*3/uL Normal <0.01 [facility] Comment on above: Order Comment: Speci men Type: BLOOD SPECIMEN Ordering Facility: Address: [address] [place] [address] Performed By: #### K LFRS #### [facility] CLIA [id number] [address] [place] [address] [place] Nucleated RBC/100 WBC (Bld) [Ratio] 0.0 /100 WBC Normal [facility] Comment on above: Order Comment: Speci men Type: BLOOD SPECIMEN Ordering Facility: Address: [address] [place] [address] Performed By: #### K LFRS #### [facility] CLIA [id number] [address] [place] [address] [place] Platelet mean volume (Bld) [Entitic vol] 10.8 fL Normal 9.0-12.7 [facility] Comment on above: Order Comment: Speci men Type: BLOOD SPECIMEN Ordering Facility: Address: [address] [place] [address] Performed By: #### K LFRS #### [facility] CLIA [id number] [address] [place] [address] [place] Platelets (Bld) [#/Vol] 190 10*3/uL Normal 150-400 [facility] Comment on above: Order Comment: Speci men Type: BLOOD SPECIMEN Ordering Facility: Address: [address] [place] [address] Performed By: #### K LFRS #### [facility] CLIA [id number] [address] [place] [address] [place] RBC (Bld) [#/Vol] 4.29 10*6/uL Normal 4.20-6.00 [facility] Comment on above: Order Comment: Speci men Type: BLOOD SPECIMEN Ordering Facility: Address: [address] [place] [address] Performed By: #### K LFRS #### [facility] CLIA [id number] [address] [place] [address] [place] WBC (Bld) [#/Vol] 8.26 10*3/uL Normal 3.70-11.00 [facility] Comment on above: Order Comment: Speci men Type: BLOOD SPECIMEN Ordering Facility: Address: [address] [place] [address] Performed By: #### K LFRS #### [facility] CLIA [id number] [address] [place] [address] [place] [facility] CBC W AUTO DIFF BLDon Basophils/100 WBC (Bld) 1 % [facility] BASOPHILS # BLD AUTO 0.08 [facility] DIFFERENTIAL METHOD BLD Auto [facility] EOSINOPHIL # BLD AUTO 0.47 High [facility] LYMPHOCYTES # BLD AUTO 3.17 [facility] MONOCYTES # BLD AUTO 1.01 High [facility] NEUTROPHILS # BLD AUTO 3.5 [facility] NRBC # BLD AUTO <0.01 [facility] NRBC/100 WBC BLD-RTO 0 /100 WBC [facility] PLATELET # BLD AUTO 190 [facility] PMV BLD AUTO 10.8 fL 9.0 - 12.7 fL [facility] WBC # BLD AUTO 8.26 [facility] Eosinophils/100 WBC (Bld) 5.7 % [facility] Erythrocyte distribution width (RBC) [Ratio] 12.6 % 11.5 - 15.0 % [facility] Hematocrit (Bld) [Volume fraction] 39.2 % 39.0 - 51.0 % [facility] Hemoglobin (Bld) [Mass/Vol] 13.6 g/dL 13.0 - 17.0 g/dL [facility] IMM GRANULOCYTES # BLD AUTO 0.03 [facility] IMM GRANULOCYTES/LEUK NFR BLD AUTO 0.4 % [facility] Interpretation and review of laboratory results Abnormal [facility] re Lymphocytes/100 WBC (Bld) 38.4 % [facility] MCH (RBC) [Entitic mass] 31.7 pg 26.0 - 34.0 pg [facility] MCHC (RBC) [Mass/Vol] 34.7 g/dL 30.5 - 36.0 g/dL [facility] MCV (RBC) [Entitic vol] 91.4 fL 80.0 - 100.0 fL [facility] Monocytes/100 WBC (Bld) 12.2 % [facility] Neutrophils/100 WBC (Bld) 42.3 % [facility] RBC (Bld) [#/Vol] 4.29 10*6/uL 4.20 - 6.0 0 m/uL [facility] Specimen Type: BLOOD SPECIMEN Ordering Facility: Address: [facility] [place] [id number] Original Ordering Provider: [facility] Calcium.ionized [Moles/Vol]o n 04-13-2024 Calcium.ionized (Bld) [Mass/Vol] 1.09 mmol/L Normal 1.08-1.30 [facility] Comment on above: Order Comment: Speci men Type: BLOOD SPECIMEN Ordering Facility: Address: [address] [place] [address] Performed By: #### 1 995-0 #### [facility] CLIA [id number] [address] [place] [address] [place] Calcium.ionized adjusted to pH 7.4 (Bld) [Moles/Vol] 1.07 mmol/L Low 1.08-1.30 [facility] Comment on above: Order Comment: Speci men Type: BLOOD SPECIMEN Ordering Facility: Address: [address] [place] [address] Performed By: #### 1 995-0 #### [facility] CLIA [id number] [address] [place] [address] [place] Comprehensive metabolic 2000 panelon 04-13-2024 Albumin [Mass/Vol] 4.5 g/dL Normal 3.9-4.9 [facility] Comment on above: Order Comment: Speci men Type: BLOOD SPECIMEN Ordering Facility: Address: [address] [place] [address] Performed By: #### K LFRS #### [facility] CLIA [id number] [address] [place] [address] [place] ALP [Catalytic activity/Vol] 70 U/L Normal 38-113 [facility] Comment on above: Order Comment: Speci men Type: BLOOD SPECIMEN Ordering Facility: Address: [address] [place] [address] Performed By: #### K LFRS #### [facility] CLIA [id number] [address] [place] [address] [place] ALT [Catalytic activity/Vol] 33 U/L Normal 10-54 [facility] Comment on above: Order Comment: Speci men Type: BLOOD SPECIMEN Ordering Facility: Address: [address] [place] [address] Performed By: #### K LFRS #### [facility] CLIA [id number] [address] [place] [address] [place] Anion gap [Moles/Vol] 11 mmol/L Normal 8-15 [facility] Comment on above: Order Comment: Speci men Type: BLOOD SPECIMEN Ordering Facility: Address: [address] [place] [address] Performed By: #### K LFRS #### [facility] CLIA [id number] [address] [place] [address] [place] AST [Catalytic activity/Vol] 30 U/L Normal 14-40 [facility] Comment on above: Order Comment: Speci men Type: BLOOD SPECIMEN Ordering Facility: Address: [address] [place] [address] Performed By: #### K LFRS #### [facility] CLIA [id number] [address] [place] [address] [place] Bilirubin [Mass/Vol] 0.7 mg/dL Normal 0.2-1.3 [facility] Comment on above: Order Comment: Speci men Type: BLOOD SPECIMEN Ordering Facility: Address: [address] [place] [address] Performed By: #### K LFRS #### [facility] CLIA [id number] [address] [place] [address] [place] Calcium [Mass/Vol] 8.5 mg/dL Normal 8.5-10.2 [facility] Comment on above: Order Comment: Speci men Type: BLOOD SPECIMEN Ordering Facility: Address: [address] [place] [address] Performed By: #### K LFRS #### [facility] CLIA [id number] [address] [place] [address] [place] Chloride [Moles/Vol] 101 mmol/L Normal 98-107 [facility] Comment on above: Order Comment: Speci men Type: BLOOD SPECIMEN Ordering Facility: Address: [address] [place] [address] Performed By: #### K LFRS #### [facility] CLIA [id number] [address] [place] [address] [place] CO2 [Moles/Vol] 28 mmol/L Normal 22-30 [facility] Comment on above: Order Comment: Speci men Type: BLOOD SPECIMEN Ordering Facility: Address: [address] [place] [address] Performed By: #### K LFRS #### [facility] CLIA [id number] [address] [place] [address] [place] [facility] Creatinine [Mass/Vol] 1.19 mg/dL Normal 0.73-1.22 [facility] Comment on above: Order Comment: Speci men Type: BLOOD SPECIMEN Ordering Facility: Address: [address] [place] [address] Performed By: #### K LFRS #### [facility] CLIA [id number] [address] [place] [address] Creatinine and Glomerular filtration rate.predicted panel (S/P/Bld) 65 mL/min/1.73m??? Normal >=60 [place] Comment on above: Order Comment: Speci men Type: BLOOD SPECIMEN Ordering Facility: Address: [address] [place] [address] Result Comment: Comfort mated Glomerular Filtration Rate [...] accurately reflect actual GFR. Performed By: #### K LFRS #### [facility] CLIA [id number] [address] [place] [address] [place] Glucose [Mass/Vol] 162 mg/dL High 74-99 [facility] Comment on above: Order Comment: Zeeshan bolden Type: BLOOD SPECIMEN Ordering Facility: Address: [address] [place] [address] Result Comment: The [place] [employer] (ADA) [...] Diabetes Care. 2016.39(Suppl 1). Performed By: #### K LFRS #### [facility] CLIA [id number] [address] [place] [address] [place] Potassium [Moles/Vol] 4.2 mmol/L Normal 3.7-5.1 [facility] Comment on above: Order Comment: Zeeshan bolden Type: BLOOD SPECIMEN Ordering Facility: Address: [address] [place] [address] Performed By: #### K LFRS #### [facility] CLIA [id number] [address] [place] [address] [place] Protein [Mass/Vol] 7.4 g/dL Normal 6.3-8.0 [facility] Comment on above: Order Comment: Zeeshan bolden Type: BLOOD SPECIMEN Ordering Facility: Address: [address] [place] [address] Performed By: #### K LFRS #### [facility] CLIA [id number] [address] [place] [address] [place] Sodium [Moles/Vol] 140 mmol/L Normal 136-144 [facility] Comment on above: Order Comment: Speci men Type: BLOOD SPECIMEN Ordering Facility: Address: [address] [place] [address] Performed By: #### K LFRS #### [facility] CLIA [id number] [address] [place] [address] [place] Urea nitrogen [Mass/Vol] 14 mg/dL Normal 9-24 [facility] Comment on above: Order Comment: Speci men Type: BLOOD SPECIMEN Ordering Facility: Address: [address] [place] [address] Performed By: #### K LFRS #### [facility] CLIA [id number] [address] [place] [address] [place] IMMUNOFIXATION SCREEN, SERUM on 04-13-2024 INTERPRETATION (MPA) Atypical restricted bands are present in the IgG and kappa regions. Consistent with IgG kappa monoclonal gammopathy. Normal [facility] Comment on above: Order Comment: Speci men Type: BLOOD SPECIMEN Ordering Facility: Address: [address] [place] [address] Performed By: #### I FESC #### [facility] CLIA [id number] [address] [place] [address] [place] MPA RESULT M protein is present. Abnormal No M p rotein is identified. [facility] Comment on above: Order Comment: Speci men Type: BLOOD SPECIMEN Ordering Facility: Address: [address] [place] [address] Performed By: #### I FESC #### [facility] CLIA [id number] [address] [place] [address] [place] STAFF REVIEW (MPA) Reviewed by Dr. Krystal Delarosa MD Normal [facility] Comment on above: Order Comment: Speci men Type: BLOOD SPECIMEN Ordering Facility: Address: [address] [place] [address] Performed By: #### I FESC #### [facility] CLIA [id number] [address] [place] [address] [place] IMMUNOGLOBULINS,IGG,IGA,IGMo n 04-13-2024 IgA [Mass/Vol] 291 mg/dL Normal 70-400 [facility] Comment on above: Order Comment: Speci men Type: BLOOD SPECIMEN Ordering Facility: Address: [address] [place] [address] Performed By: #### S ERIMM #### [facility] CLIA [id number] [address] [place] [address] [place] IgG [Mass/Vol] 1192 mg/dL Normal 700-1600 [facility] Comment on above: Order Comment: Speci men Type: BLOOD SPECIMEN Ordering Facility: Address: [address] [place] [address] Performed By: #### S ERIMM #### [facility] CLIA [id number] [address] [place] [address] [place] IgM [Mass/Vol] 43 mg/dL Normal 40-230 [facility] Comment on above: Order Comment: Speci men Type: BLOOD SPECIMEN Ordering Facility: Address: [address] [place] [address] Performed By: #### S ERIMM #### [facility] CLIA [id number] [address] [place] [address] [place] KAPPA/SERRATO,FREE,SERon 2024 Immunoglobulin light chains.kappa.free (S) [Mass/Vol] 29.8 mg/L High 3.3-19.4 [facility] Comment on above: Order Comment: Speci men Type: BLOOD SPECIMEN Ordering Facility: Address: [address] [place] [address] Result Comment: Rare ly, increased serum free light chains levels may not be detected or accurately quantified due to prozone phenomenon or in high viscosity samples using this immunoturbidimetric assay. Correlation with other laboratory results and clinical findings is recommended. The [place] Free Light Chain was performed using the Binding Site Optilite immunoturbidimetric method. Result obtained with different assay methods or kits cannot be used interchangeably. Performed By: #### K LFRS #### [facility] CLIA [id number] [address] [place] [address] [place] Immunoglobulin light chains.kappa/Immuno globulin light chains.lambda (S) [Mass ratio] 1.75 High 0.26-1.65 [facility] Comment on above: Order Comment: Speci men Type: BLOOD SPECIMEN Ordering Facility: Address: [address] [place] [address] Performed By: #### K LFRS #### [facility] CLIA [id number] [address] [place] [address] [place] Immunoglobulin light chains.lambda.free [Mass/Vol] 17.0 mg/L Normal 5.7-26.3 [facility] Comment on above: Order Comment: Speci men Type: BLOOD SPECIMEN Ordering Facility: Address: [address] [place] [address] Result Comment: Rare ly, increased serum free [...] interchangeably. Performed By: #### K LFRS #### [facility] CLIA [id number] [address] [place] [address] [place] LDH SerPl-cCncon 04-13-2024 LDH [Catalytic activity/Vol] 277 U/L High 135-225 [facility] Comment on above: Order Comment: Speci men Type: BLOOD SPECIMEN Ordering Facility: Address: [address] [place] [address] Performed By: #### K LFRS #### [facility] CLIA [id number] [address] [place] [address] [place] PROTEIN ELECTROPHORESIS SERU M (P)on 04-13-2024 Albumin [Mass/Vol] 4.40 g/dL Normal 3.43-5.41 [facility] Comment on above: Order Comment: Speci men Type: BLOOD SPECIMEN Ordering Facility: Address: [address] [place] [address] Performed By: #### L [id number] #### [facility] CLIA [id number] [address] [place] [address] [place] Alpha 1 globulin Elph [Mass/Vol] 0.27 g/dL Normal 0.18-0.43 [facility] Comment on above: Order Comment: Speci men Type: BLOOD SPECIMEN Ordering Facility: Address: [address] [place] [address] Performed By: #### L [id number] #### [facility] CLIA [id number] [address] [place] [address] [place] Alpha 2 globulin Elph [Mass/Vol] 0.93 g/dL Normal 0.42-0.98 [facility] Comment on above: Order Comment: Speci men Type: BLOOD SPECIMEN Ordering Facility: Address: [address] [place] [address] Performed By: #### L [id number] #### [facility] CLIA [id number] [address] [place] [address] [place] Beta globulin Elph [Mass/Vol] 0.92 g/dL Normal 0.61-1.17 [facility] Comment on above: Order Comment: Speci men Type: BLOOD SPECIMEN Ordering Facility: Address: [address] [place] [address] Performed By: #### L [id number] #### [facility] CLIA [id number] [address] [place] [address] [place] Gamma globulin Elph [Mass/Vol] 1.08 g/dL Normal 0.53-1.51 [facility] Comment on above: Order Comment: Speci men Type: BLOOD SPECIMEN Ordering Facility: Address: [address] [place] [address] Performed By: #### L [id number] #### [facility] CLIA [id number] [address] [place] [address] [place] INTERPRETATION COMMENT FOR PROTEIN ELECTROPHORESIS See separate immunofixation report for characterization of monoclonal gammopathy. Normal [facility] Comment on above: Order Comment: Speci men Type: BLOOD SPECIMEN Ordering Facility: Address: [address] [place] [address] Performed By: #### L [id number] #### [facility] CLIA [id number] [address] [place] [address] [place] M-PROTEIN LOCATION Gamma Fraction 1 Normal [facility] Comment on above: Order Comment: Speci men Type: BLOOD SPECIMEN Ordering Facility: Address: [address] [place] [address] Performed By: #### L [id number] #### [facility] CLIA [id number] [address] [place] [address] [place] Protein Fractions [Interp] An M protein is identified on protein electrophoresis. Abnormal No definitive M protein is identified on protein electrophores is. [facility] Comment on above: Order Comment: Speci men Type: BLOOD SPECIMEN Ordering Facility: Address: [address] [place] [address] Performed By: #### L [id number] #### [facility] CLIA [id number] [address] [place] [address] [place] Protein.monoclonal Elph [Mass/Vol] 0.49 g/dL High <=0.00 [facility] Comment on above: Order Comment: Speci men Type: BLOOD SPECIMEN Ordering Facility: Address: [address] [place] [address] Performed By: #### L [id number] #### [facility] CLIA [id number] [address] [place] [address] [place] SPE STAFF REVIEW Reviewed by Dr. Krystal Delarosa MD [facility] Comment on above: Order Comment: Speci men Type: BLOOD SPECIMEN Ordering Facility: Address: [address] [place] [address] Performed By: #### L [id number] #### [facility] CLIA [id number] [address] [place] [address] [place] Phosphate SerPl-mCncon 04-13 Phosphate [Mass/Vol] 4.2 mg/dL Normal 2.7-4.8 [facility] Comment on above: Order Comment: Speci men Type: BLOOD SPECIMEN Ordering Facility: Address: [address] [place] [address] Performed By: #### 2 4323-8, 3084-1, 2777-1, 2532-0 #### [facility] CLIA [id number] [address] [place] [address] Prot SerPl-mCncon 04-13-2024 Protein [Mass/Vol] 7.6 g/dL Normal 6.3-8.0 [facility] Comment on above: Order Comment: Speci men Type: BLOOD SPECIMEN Ordering Facility: Address: [address] [place] [address] Performed By: #### 2 885-2, 1952-1 #### [facility] CLIA [id number] [address] [place] [address] [place] SERUM VISCOSITYon 04-13-2024 VISCOSITY, SERUM 1.22 cP Normal <=1.50 [facility] Comment on above: Order Comment: Speci men Type: BLOOD SPECIMEN Ordering Facility: Address: [address] [place] [address] Result Comment: INTE RPRETIVE INFORMATION: Viscosity, Serum Increased viscosity is associated with disorders such as monoclonal gammopathy, macroglobulinemia, and multiple myeloma. Significantly elevated viscosity (>3.0 cP) is associated with clinical symptoms of hyperviscosity syndrome. This test was developed and its performance characteristics determined by [facility]. It has not been cleared or approved by the [place] Food and Drug Administration. This test was performed in a CLIA certified laboratory and is intended for clinical purposes. Performed By: [facility] [address] [place] [address] [employer] Forming Machine Operator: Adriano Tang MD, PhD CLIA Number: [id number] Performed By: #### K LFRS #### [facility] CLIA [id number] [address] [place] [address] [place] Urate SerPl-mCncon 5 Urate [Mass/Vol] 5.8 mg/dL Normal 4.0-8.1 [facility] Comment on above: Order Comment: Speci men Type: BLOOD SPECIMEN Ordering Facility: Address: [address] [place] [address] Performed By: #### 2 4323-8, 3084-1, 2777-1, 2532-0 #### [facility] CLIA [id number] [address] [place], [place] [id number] CT BRAIN W CONTon 03-07-2024 CT BRAIN W CONT CT BRAIN W CONT CLINICAL INFORMATION: Retro-orbital pain of right eye TECHNIQUE: CT BRAIN W CONT CT images of the brain were obtained. Intravenous contrast was administered. There is no focus of pathologic intracranial enhancement. Paranasal sinuses and mastoid air cells appear clear. No obvious orbital abnormality to within the limits of this exam. Globes are symmetric. There is no intracranial mass. No obvious infarct or acute hemorrhage. Cerebral volume appears appropriate. IMPRESSION: No acute findings. All CT scans at this facility use dose modulation, iterative reconstruction, and/or weight based dosing when appropriate to reduce radiation dose to as low as reasonably achievable. Finalized by Kervin Cyr MD on 03/07/2024 12:46 PM Normal [facility] CT ORBITS SELLA EAR W CONTon 03-07-2024 CT ORBITS SELLA EAR W CONT CT ORBITS SELLA EAR W CONT CLINICAL HISTORY: A 74-year-old male with the history of the right eye retrobulbar pain TECHNIQUE: Multidetector spiral CT scan of the orbits is performed during intravenous administration of 100 cc of Omnipaque 300. Multiplanar reconstruction images are reformatted. All CT scans at this facility use dose modulation, iterative reconstruction, and/or weight based dosing when appropriate to reduce radiation dose to as low as reasonably achievable. COMPARISON: No relevant prior studies are available for comparison. FINDINGS: Both optic nerves are normal and symmetrical bilaterally. Globes are normal and symmetrical bilaterally. Extraocular muscles are normal and symmetrical bilaterally. There is no evidence of intraorbital mass or obliteration of the retrobulbar fat. Postcontrast examination reveals no evidence of abnormal enhancing pathology within the orbits. There are intracranial vascular calcifications. No evidence of sellar or suprasellar mass. Visualized paranasal sinuses are clear. No bony destruction is seen. IMPRESSION: 1. No evidence of intraorbital mass, abnormal enhancing lesion or obliteration of the retrobulbar fat. 2. Both optic nerves, globes and extraocular muscles are normal. Finalized by Jam Tamayo MD on 03/07/2024 7:44 PM Normal [facility] CT SINUSES W CONTon 03-07-[address] CT SINUSES W CONT CLINICAL HISTORY:A 74-year-old male with the history of the retro-orbital pain of the right eye. TECHNIQUE: Multidetector spiral CT scan of the paranasal sinuses is performed. Multiplanar reconstruction images are reformatted. COMPARISON: Comparison is made with CT scan of brain and orbits of 03/07/2024. FINDINGS: Minimal mucosal thickening is seen in the inferior aspect of the left maxillary sinus. Other paranasal sinuses are clear. There is no evidence of air-fluid levels. The maxillary ostiomeatal complexes are clear. No bony destruction is identified. The turbinates are unremarkable. The nasal septum is mildly deviated to the right. No intraorbital soft tissue abnormality seen. Mastoid air cells are clear. IMPRESSION: 1. Minimal mucosal thickening in the inferior aspect of the left maxillary sinus. Other paranasal sinuses are clear. Maxillary ostiomeatal complexes are clear. 2. Nasal septum is mildly deviated to the right. All CT scans at this facility use dose modulation, iterative reconstruction, and/or weight based dosing when appropriate to reduce radiation dose to as low as reasonably achievable. Finalized by Jam Tamayo MD on 03/07/2024 7:47 PM Normal [facility] HGB A1C (GLYCO-HGB)on 2023 Glucose [Mass/Vol] 151 mg/dL Normal [facility] Comment on above: Performed By: #### H A1C #### [facility] ([id number]) [address] [address] HbA1c (Bld) [Mass fraction] 6.9 % High 4.4-5.6 [facility] Comment on above: Result Comment: NOTE ADA Guidelines Result HgbA1c Normal : less than 5.7 % Prediabetes : 5.7 % to 6.4 % Diabetes : > 6.4 % Use with caution in patients with abnormal hemoglobin variants as the half-life of red blood cells and in vivo glycation rates are affected. Performed By: #### H A1C #### [facility] ([id number]) [address] [address] MICROALBUMIN - ALBUMIN:CREAT ININE URINE RATIOon 02-14-2024 ALB/CREAT RATIO 5.0 mg/g creat Normal 0.0-30.0 [facility] Comment on above: Performed By: #### M ALBU #### [facility] ([id number]) [facility] [address] [address] Albumin DL <= 20 mg/L (U) [Mass/Vol] 0.7 mg/dL Normal 0.0-1.9 [facility] Comment on above: Performed By: #### M ALBU #### [facility] ([id number]) [address] [place] [address] [address] [place] [address] URINE CREAT 141.08 mg/dL Normal [facility] Comment on above: Performed By: #### M RICO #### [facility] ([id number]) [address], [address] [place] [address] Vital Signs Date Time Vital Sign Value Performing Clinician Facility 12-31-2024 [id number] Body height 166 cm Isma Cohen DO Work Phone: [facility] 12-31-2024 10:22-0400 Body mass index (BMI) [Ratio] 33.02 kg/m2 Isma Sunni LOPEZ Work Phone: [facility] 12-31-2024 10:22-0400 Body temperature 97.81 [degF] Isma Sunni LPOEZ Work Phone: [facility] 12-31-2024 10:22-0400 Body weight 90.99 kg Isma Sunni LOPEZ Work Phone: [facility] 12-31-2024 10:22-0400 Diastolic blood pressure 84 mm[Hg] Isma Cohen DO Work Phone: [facility] 12-31-2024 10:22-0400 Heart rate 60 /min Isma Cohen DO Work Phone: [facility] 12-31-2024 10:22-0400 SaO2% (BldA) [Mass fraction] 96 % Isma Cohen DO Work Phone: [facility] 12-31-2024 10:22-0400 Systolic blood pressure 122 mm[Hg] Isma Sunni LOPEZ Work Phone: [facility] 09-18-2024 13:59-0400 Body height 170.2 cm Rosanna Capellan APRN-EXTENSION CLERK Work Phone: [facility] 09-18-2024 13:59-0400 Body mass index (BMI) [Ratio] 31.17 kg/m2 Rosanna Capellan APRN-EXTENSION CLERK Work Phone: [facility] 09-18-2024 13:59-0400 Body weight 90.27 kg Rosanna Capellan HYPO DIPPER-EXTENSION CLERK Work Phone: [facility] 09-18-2024 13:59-0400 Diastolic blood pressure 64 mm[Hg] Rosanna Capellan HYPO DIPPER-EXTENSION CLERK Work Phone: [facility] 09-18-2024 13:59-0400 Systolic blood pressure 133 mm[Hg] Rosanna Capellan HYPO DIPPER-EXTENSION CLERK Work Phone: [facility] 08-07-2024 08:16-0400 Body height 170.2 cm Delmar Mici PA-C Work Phone: [facility] 08-07-2024 08:16-0400 Body mass index (BMI) [Ratio] 31.17 kg/m2 Delmar Mici PA-C Work Phone: [facility] 08-07-2024 08:16-0400 Body weight 90.27 kg Delmar Mici PA-C Work Phone: [facility] 08-07-2024 08:16-0400 Diastolic blood pressure 88 mm[Hg] Delmar Mici PA-C Work Phone: [facility] 08-07-2024 08:16-0400 Heart rate 84 /min Delmar Mici PA-C Work Phone: [facility] 08-07-2024 08:16-0400 SaO2% (BldA) [Mass fraction] 97 % Delmar Mici PA-C Work Phone: [facility] 08-07-2024 08:16-0400 Systolic blood pressure 126 mm[Hg] Delmar Mici PA-C Work Phone: [facility] 07-18-2024 13:30-0400 Heart rate 70 /min Davie Luna MD Work Phone: [facility] 07-18-2024 13:30-0400 Respiratory rate 14 /min Davie Luna MD Work Phone: [facility] 07-18-2024 12:10-0400 SaO2% (BldA) [Mass fraction] 96 % Davie Luna MD Work Phone: [facility] 07-18-2024 12:00-0400 Diastolic blood pressure 72 mm[Hg] Davie Luna MD Work Phone: [facility] 07-18-2024 12:00-0400 Systolic blood pressure 144 mm[Hg] Davie Luna MD Work Phone: [facility] 07-18-2024 08:15-0400 Body temperature 96.3 [degF] Davie Luna MD Work Phone: [facility] Comment on above: warm blankets provided 07-18-2024 07:15-0400 Body mass index (BMI) [Ratio] 33.18 kg/m2 Davie Luna MD Work Phone: [facility] 07-18-2024 07:15-0400 Body weight 96.1 kg Davie Luna MD Work Phone: [facility] 07-16-2024 17:25-0400 Body height 170.2 cm Davie Luna MD Work Phone: [facility] 07-16-2024 08:10-0400 Body height 170.2 cm Carlos Enrique See MD Work Phone: [facility] 07-16-2024 08:10-0400 Body mass index (BMI) [Ratio] 33.35 kg/m2 Carlos Enrique See MD Work Phone: [facility] 07-16-2024 08:10-0400 Body weight 96.62 kg Carlos Enrique See MD Work Phone: [facility] 07-16-2024 08:10-0400 Diastolic blood pressure 62 mm[Hg] Carlos Enrique See MD Work Phone: [facility] 07-16-2024 08:10-0400 Heart rate 42 /min Carlos Enrique See MD Work Phone: [facility] 07-16-2024 08:10-0400 SaO2% (BldA) [Mass fraction] 94 % Carlos Enrique See MD Work Phone: [facility] 07-16-2024 08:10-0400 Systolic blood pressure 106 mm[Hg] Carlos Enrique See MD Work Phone: [facility] 07-03-2024 13:15-0400 Body height 170.2 cm Taras Wright MD Work Phone: [facility] 07-03-2024 13:15-0400 Body mass index (BMI) [Ratio] 32.73 kg/m2 Taras Wright MD Work Phone: [facility] 07-03-2024 13:15-0400 Body temperature 97.11 [degF] Taras Wright MD Work Phone: [facility] 07-03-2024 13:15-0400 Body weight 94.8 kg Taras Wright MD Work Phone: [facility] 07-03-2024 13:15-0400 Diastolic blood pressure 78 mm[Hg] Taras Wright MD Work Phone: [facility] 07-03-2024 13:15-0400 Heart rate 67 /min Taras Wright MD Work Phone: [facility] 07-03-2024 13:15-0400 Respiratory rate 20 /min Taras Wright MD Work Phone: [facility] 07-03-2024 13:15-0400 SaO2% (BldA) [Mass fraction] 96 % Taras Wright MD Work Phone: [facility] 07-03-2024 13:15-0400 Systolic blood pressure 124 mm[Hg] Taras Wright MD Work Phone: [facility] 06-26-2024 08:42-0400 Body height 170.2 cm Bonnie NORRIS Work Phone: [facility] 06-26-2024 08:42-0400 Body mass index (BMI) [Ratio] 31.94 kg/m2 Bonnie NORRIS Work Phone: [facility] 06-26-2024 08:42-0400 Body weight 92.53 kg Bonnie NORRIS Work Phone: [facility] 06-26-2024 08:42-0400 Diastolic blood pressure 90 mm[Hg] Bonnie NORRIS Work Phone: [facility] 06-26-2024 08:42-0400 Heart rate 70 /min Bonnie NORRIS Work Phone: [facility] 06-26-2024 08:42-0400 SaO2% (BldA) [Mass fraction] 96 % Bonnie NORRIS Work Phone: [facility] 06-26-2024 08:42-0400 Systolic blood pressure 148 mm[Hg] Bonnie NORRIS Work Phone: [facility] 05-22-2024 11:11-0500 Body height 170.2 cm Taras Wright MD Work Phone: [facility] 05-22-2024 11:11-0500 Body mass index (BMI) [Ratio] 31.79 kg/m2 Taras Wright MD Work Phone: [facility] 05-22-2024 11:11-0500 Body temperature 97.11 [degF] Taras Wright MD Work Phone: [facility] 05-22-2024 11:11-0500 Body weight 92.08 kg Taras Wright MD Work Phone: [facility] 05-22-2024 11:11-0500 Diastolic blood pressure 60 mm[Hg] Taras Wright MD Work Phone: [facility] 05-22-2024 11:11-0500 Heart rate 91 /min Taras Wright MD Work Phone: [facility] 05-22-2024 11:11-0500 Respiratory rate 18 /min Taras Wright MD Work Phone: [facility] 05-22-2024 11:11-0500 SaO2% (BldA) [Mass fraction] 97 % Taras Wright MD Work Phone: [facility] 05-22-2024 11:11-0500 Systolic blood pressure 146 mm[Hg] Taras Wright MD Work Phone: [facility] 04-24-2024 13:12-0500 Body height 170.2 cm Taras Wright MD Work Phone: [facility] 04-24-2024 13:12-0500 Body mass index (BMI) [Ratio] 32.26 kg/m2 Taras Wright MD Work Phone: [facility] 04-24-2024 13:12-0500 Body temperature 97.11 [degF] Taras Wright MD Work Phone: [facility] 04-24-2024 13:12-0500 Body weight 93.44 kg Taras Wright MD Work Phone: [facility] 04-24-2024 13:12-0500 Diastolic blood pressure 54 mm[Hg] Taras Wright MD Work Phone: [facility] 04-24-2024 13:12-0500 Heart rate 45 /min Taras Wright MD Work Phone: [facility] 04-24-2024 13:12-0500 Respiratory rate 22 /min Taras Wright MD Work Phone: [facility] 04-24-2024 13:12-0500 SaO2% (BldA) [Mass fraction] 98 % Taras Wright MD Work Phone: [facility] 04-24-2024 13:12-0500 Systolic blood pressure 122 mm[Hg] Taras Wright MD Work Phone: [facility] 04-20-2024 09:57-0500 Body height 167.6 cm Cassie Mariana PA-C Work Phone: [facility] 04-20-2024 09:57-0500 Body mass index (BMI) [Ratio] 33.29 kg/m2 Cassie Mariana PA-C Work Phone: [facility] 04-20-2024 09:57-0500 Body temperature 97.3 [degF] Cassie Mariana PA-C Work Phone: [facility] 04-20-2024 09:57-0500 Body weight 93.5 kg Cassie Mariana PA-C Work Phone: [facility] 04-20-2024 09:57-0500 Diastolic blood pressure 58 mm[Hg] Cassie Mariana PA-C Work Phone: [facility] 04-20-2024 09:57-0500 Heart rate 53 /min Cassie Mariana PA-C Work Phone: [facility] 04-20-2024 09:57-0500 Respiratory rate 16 /min Cassie Mariana PA-C Work Phone: [facility] 04-20-2024 09:57-0500 SaO2% (BldA) [Mass fraction] 95 % Cassie Mariana PA-C Work Phone: [facility] 04-20-2024 09:57-0500 Systolic blood pressure 126 mm[Hg] Cassie Mariana PA-C Work Phone: [facility] 02-13-2024 09:39-0500 Body height 170.2 cm Taras Wright MD Work Phone: [facility] 02-13-2024 09:39-0500 Body mass index (BMI) [Ratio] 32.11 kg/m2 Taras Wright MD Work Phone: [facility] 02-13-2024 09:39-0500 Body temperature 97.5 [degF] Taras Wright MD Work Phone: [facility] 02-13-2024 09:39-0500 Body weight 92.99 kg Taras Wright MD Work Phone: [facility] 02-13-2024 09:39-0500 Diastolic blood pressure 68 mm[Hg] Taras Wright MD Work Phone: [facility] 02-13-2024 09:39-0500 Heart rate 68 /min Taras Wright MD Work Phone: [facility] 02-13-2024 09:39-0500 Respiratory rate 20 /min Taras Wright MD Work Phone: [facility] 02-13-2024 09:39-0500 SaO2% (BldA) [Mass fraction] 95 % Taras Wright MD Work Phone: [facility] 02-13-2024 09:39-0500 Systolic blood pressure 130 mm[Hg] Taras Wright MD Work Phone: [facility] 06-27-2023 10:13-0400 Body height 170.2 cm Faviola Gonzalez MD Work Phone: [facility] 06-27-2023 10:13-0400 Body mass index (BMI) [Ratio] 32.1 kg/m2 Faviola Gonzalez MD Work Phone: [facility] 06-27-2023 10:13-0400 Body weight 92.99 kg Faviola Gonzalez MD Work Phone: [facility] 06-27-2023 10:13-0400 Diastolic blood pressure 86 mm[Hg] Faviola Gonzalez MD Work Phone: [facility] 06-27-2023 10:13-0400 Heart rate 52 /min Faviola Gonzalez MD Work Phone: [facility] 06-27-2023 10:13-0400 SaO2% (BldA) [Mass fraction] 97 % Faviola Gonzalez MD Work Phone: [employer] 06-27-2023 10:13-0400 Systolic blood pressure 138 mm[Hg] Faviola Gonzalez MD Work Phone: [facility] [employer] [facility] 04-16-2022 09:44-0500 Body height 167.6 cm Jefferson Dewitt MD Work Phone: [facility] 04-16-2022 09:44-0500 Body temperature 97.2 [degF] Jefferson Dewitt MD Work Phone: [facility] 04-16-2022 09:44-0500 Body weight 94.17 kg Jefferson Dewitt MD Work Phone: [facility] 04-16-2022 09:44-0500 Diastolic blood pressure 65 mm[Hg] Jefferson Dewitt MD Work Phone: [facility] 04-16-2022 09:44-0500 Heart rate 50 /min Jefferson Dewitt MD Work Phone: [facility] 04-16-2022 09:44-0500 Respiratory rate 16 /min Jefferson Dewitt MD Work Phone: [facility] 04-16-2022 09:44-0500 SaO2% (BldA) [Mass fraction] 94 % Jefferson Dewitt MD Work Phone: [facility] 04-16-2022 09:44-0500 Systolic blood pressure 133 mm[Hg] Jefferson Dewitt MD Work Phone: [facility] Encounters Encounter Date Encounter Type Care Provider Facility Start: 12-31-2024 ambulatory ISMA Hernandez [facility] Start: 12-31-2024 End: 12-31-2024 Office outpatient new 30 minutes Isma Cohen DO Work Phone: [facility] Comment on above: Type 2 diabetes delio itus with diabetic polyneuropathy, without long-term current use of insulin ([facility]) (Primary Dx); Peripheral polyneuropathy; Anemia, unspecified type Start: 12-31-2024 End: 12-31-2024 ambulatory [facility] Start: 10-12-2024 End: 10-12-2024 Follow-up encounter Isma Smith DO Work Phone: [facility] Comment on above: Surgical Pathology Start: 10-08-2024 End: 10-08-2024 Evaluation and management of inpatient ISMA SMITH [facility] Start: 10-02-2024 End: 10-02-2024 ambulatory [facility] Phone Call Provider 1 [facility] - Pre Admit Start: 09-18-2024 End: 09-18-2024 Patient encounter procedure Rosanna Capellan HYPO DIPPER-EXTENSION CLERK Work Phone: [facility] Comment on above: Encounter for screen ing colonoscopy (Primary Dx) Start: 09-18-2024 End: 09-18-2024 ambulatory [facility] Start: 09-07-[address] [facility] Start: 08-29-2024 End: 08-29-2024 Clinical Support Pm [facility] Pacer [facility] Comment on above: Pacemaker - Flores ( Primary Dx) Start: 08-28-2024 End: 08-28-2024 Telephone encounter [facility] Do[facility] Start: 08-15-2024 End: 08-15-2024 Refill Taras Wright MD Work Phone: 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 Start: 08-01-2024 End: 08-01-2024 ambulatory [facility] Start: 07-25-2024 End: 07-25-2024 [facility] Start: 07-23-2024 End: 07-23-2024 Telephone encounter Jaylen Hung RN [facility] Comment on above: Need for Cardiac Cat h Start: 07-20-2024 End: 07-20-2024 Documentation procedure Sandra Wan RN [facility] Comment on above: Samples Start: 07-16-2024 End: 07-18-2024 Evaluation and management of inpatient Alvino Yadav DO Work Phone: [facility] ICU Comment on above: Complete heart block (CMS-HCC) (Primary Dx); Bradycardia; 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 (CMS-HCC) Start: 07-16-2024 End: 07-16-2024 Telephone encounter Manuela Godinez RN [facility] Comment on above: Cardiac Cath Start: 07-16-2024 End: 07-16-2024 Office outpatient visit 25 minutes Carlos Enrique See MD Work Phone: [facility] Comment on above: 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 (Primary Dx); KIM (dyspnea on exertion) Start: 07-16-2024 End: 07-16-2024 ambulatory [facility] Start: 07-09-2024 End: 07-09-2024 ambulatory TARAS [facility] Start: 07-04-2024 End: 07-04-2024 Telephone encounter Rosanna Capellan APRN-REGI [facility] Start: 07-04-2024 End: 07-04-2024 ambulatory BONNIE Blanc [facility] Start: 07-03-2024 End: 07-03-2024 Bamboo flowsheet Taras Wright MD Work Phone: [facility] Start: 07-03-2024 End: 07-03-2024 Bamboo flowsheet Taras Wright MD Work Phone: [facility] Start: 07-03-2024 End: 07-03-2024 ambulatory TARAS WRIGHT Not Available Start: 07-03-2024 End: 07-03-2024 Office outpatient visit 25 minutes Taras Wright MD Work Phone: [facility] Comment on above: Type 2 diabetes delio itus with hyperglycemia, without long-term current use of insulin ([facility]/HCC) (Primary Dx); Chronic rhinosinusitis; CAD [place] artery ([facility]); Small fiber polyneuropathy; Colon cancer screening Start: 06-26-2024 End: 06-26-2024 ambulatory [facility] Start: 06-26-2024 End: 06-26-2024 Office outpatient visit 15 minutes [facility] Work Phone: [facility] Comment on above: 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 ([facility]-HCC) (Primary Dx); Peripheral vascular disease, unspecified ([facility]); Type 2 diabetes mellitus with diabetic polyneuropathy, without long-term current use of insulin ([facility]); Sinus arrhythmia; Chest pain, unspecified type; KIM (dyspnea on exertion); Primary hypertension Start: 06-26-2024 End: 06-26-2024 ambulatory [facility] Start: 06-25-2024 End: 06-25-2024 Telephone encounter Pam Pittman [facility] Start: 05-22-2024 End: 05-22-2024 Bamboo flowsheet Taras Wright MD Work Phone: [facility] Start: 05-22-2024 End: 05-22-2024 Bamboo flowsheet Taras Wright MD Work Phone: [facility] Start: 05-22-2024 End: 05-22-2024 Office outpatient visit 15 minutes Taras Wright MD Work Phone: [facility] Comment on above: Medicare annual well ness visit, subsequent (Primary Dx); Chronic rhinosinusitis; Peripheral arterial disease ([facility]/HCC); Type 2 diabetes mellitus with hyperglycemia, without long-term current use of insulin ([facility]); Small fiber polyneuropathy; Type 2 diabetes mellitus with other specified complication ([facility]/HCC); Hyperlipidemia, unspecified ([facility]); Type 2 diabetes mellitus with diabetic peripheral angiopathy without gangrene ([facility]) Start: 05-22-2024 End: 05-22-2024 Patient encounter procedure Taras Wright MD Work Phone: [facility] Work Phone: Start: 05-22-2024 End: 05-22-2024 ambulatory TARAS WRIGHT Not Available Start: 05-14-2024 End: 05-14-2024 Refill Taras Wright MD Work Phone: [facility] Comment on above: Small fiber polyneur opathy Start: 04-24-2024 End: 04-24-2024 Bamboo flowsheet Taras Wright MD Work Phone: [facility] Start: 04-24-2024 End: 04-24-2024 Bamboo flowsheet Taras Wright MD Work Phone: [facility] Start: 04-24-2024 End: 04-24-2024 Office outpatient visit 15 minutes Taras Wright MD Work Phone: [facility] Comment on above: Acute non-recurrent pansinusitis (Primary Dx) Start: 04-24-2024 End: 04-24-2024 ambulatory TARAS WRIGHT Not Available Start: 04-20-2024 End: 04-20-2024 ambulatory TARAS WRIGHT Facility:[facility] Start: 04-20-2024 End: 04-20-2024 Office outpatient visit 15 minutes Cassie Owen PA-C Work Phone: Hematology/Oncology Comment on above: 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 Dx) Start: 04-13-2024 End: 04-13-2024 Clinisync Result Encounter Generic External Data Provider [facility] External Department Unsolicited Start: 04-13-2024 End: 04-13-2024 Clinisync Result Encounter Generic External Data Provider [facility] External Department Unsolicited Start: 04-13-2024 End: 04-13-2024 ambulatory TARAS WRIGHT Facility:[facility] Start: 03-07-2024 End: 03-07-2024 ambulatory GAGE WhitmanGenesis YESYYIN [facility] Start: 02-14-2024 End: 02-14-2024 ambulatory TARAS WRIGHT [facility] Start: 02-13-2024 End: 02-13-2024 Bamboo flowsdaniela Wright MD Work Phone: [facility] Start: 02-13-2024 End: 02-13-2024 Saji Wright MD Work Phone: [facility] Start: 02-13-2024 End: 02-13-2024 Office outpatient visit 25 minutes Taras Wright MD Work Phone: [facility] Comment on above: Type 2 diabetes delio itus with hyperglycemia, without long-term current use of insulin ([facility]) (Primary Dx); Small fiber polyneuropathy; Venous insufficiency; CAD in [place] artery ([facility]) Start: 02-13-2024 End: 02-13-2024 ambulatory TARAS WRIGHT Not Available Start: 02-11-2024 End: 02-13-2024 Refill Taras Wright MD Work Phone: [facility] Comment on above: Small fiber polyneur opathy Start: 01-20-2024 End: 01-25-2024 Refill Uriel Lyons HYPO DIPPER-EXTENSION CLERK Work Phone: [facility] Comment on above: Med Refill Start: 11-14-2023 End: 11-15-2023 Refill Ester Emanuel HYPO DIPPER-EXTENSION CLERK Work Phone: [facility] Comment on above: Med Refill Start: 10-27-2023 End: 10-27-2023 Refill Gino Nance Davis HYPO DIPPER-EXTENSION CLERK Work Phone: [facility] Comment on above: Med Refill Start: 08-24-2023 End: 08-24-2023 ambulatory TARAS WRIGHT Not Available Start: 08-19-2023 End: 08-19-2023 Refill Blu Ching RN [facility] Comment on above: Med Refill Start: 08-17-2023 End: 08-17-2023 Refill Nancy Daniel RN [facility] Comment on above: Med Refill Start: 07-22-2023 End: 07-22-2023 Refill Gretchen Devi RN [facility] Comment on above: Med Refill Start: 06-27-2023 End: 06-27-2023 Office outpatient visit 15 minutes Faviola Gonzalez MD Work Phone: [facility] Comment on above: 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 ([facility]) (Primary Dx); Abnormal stress test Start: 06-24-2023 Telephone encounter [facility] Start: 08-18-2022 ambulatory TAMMY Moore lity:H1 Start: 04-16-2022 End: 04-16-2022 ambulatory Jefferson Dewitt MD Work Phone: Hematology/Oncology Comment on above: 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 Dx); Idiopathic peripheral autonomic neuropathy Start: 04-16-2022 End: 04-16-2022 Patient encounter procedure Jefferson Dewitt MD Work Phone: [facility] Start: 07-19-2014 End: 07-20-2014 Ambulatory FAVIOLA NOLAN Facility:[facility] Procedures Date Procedure Procedure Detail Performing Clinician Start: 12-31-2024 Adult depression scr eening assessment Isma Cohen DO Work Phone: Start: 10-08-2024 Colonoscopy Isma rodriguez DO Work Phone: Start: 07-18-2024 Radiologic exam ches t 2 views Davie Luna MD Work Phone: Start: 07-18-2024 End: 07-18-2024 Comprehensive metabolic panel Estuardo Higginbotham MD Work Phone: Start: 07-17-2024 Radiologic exam ches t single view Davie Luna MD Work Phone: Start: 07-17-2024 Ecg routine ecg w/le ast 12 lds trcg only w/o i&r Davie Luna MD Work Phone: Start: 07-17-2024 EP INVASIVE Davie walker MD Work Phone: Start: 07-17-2024 Calcium ionized Estuardo Higginbotham MD Work Phone: Start: 07-17-2024 Comprehensive metabo lic panel Estuardo Higginbotham MD Work Phone: Start: 07-16-2024 Echo tthrc r-t 2d w/wom-mode compl spec&colr d Uriel Lyons HYPO DIPPER-EXTENSION CLERK Work Phone: Start: 07-16-2024 End: 07-16-2024 Assay of magnesium Estuardo Higginbotham MD Work Phone: Start: 07-16-2024 Ecg routine ecg w/le ast 12 lds trcg only w/o i&r Estuardo Higginbotham MD Work Phone: Start: 07-16-2024 Gluc bld gluc mntr d ev cleared fda spec home use Davie Luna MD Work Phone: Start: 07-16-2024 End: 07-16-2024 Comprehensive metabolic panel Alvino Yadav DO Work Phone: Start: 07-16-2024 Ecg routine ecg w/le ast 12 lds trcg only w/o i&r Alvino Yadav DO Work Phone: Start: 07-16-2024 Adult depression scr eening assessment Ciara Jang RN Start: 06-26-2024 Ecg routine ecg w/le ast 12 lds w/i&r Bonnie Garrido HYPO DIPPER-EXTENSION CLERK Work Phone: Start: 06-26-2024 Follow-up visit Follow-up BONNIE GARRIDO Start: 04-13-2024 [facility] CBC W AUTO DIFF BLD Generic External Data Provider Start: 06-03-2014 Colonoscopy Taras martinez MD Work Phone: Plan of Treatment Date Care Activity Detail Author Start: 10-08-2029 Screening for malignant neoplasm of colon Colonoscopy [facility] Start: 01-18-2027 LIPID SCREEN LIPID SCREEN [facility] Start: 02-26-2026 Glaucoma screening Diabetes: Retinopathy Screening [facility] Start: 12-31-2025 Adult BMI Screening Adult BMI Screening [facility] Start: 12-31-2025 Depression Screening Depression Screening [facility] Start: 12-31-2025 Tobacco Screening Tobacco Screening [facility] Start: 10-08-2025 Adult BMI Screening Adult BMI Screening [facility] Start: 10-08-2025 Tobacco Screening Tobacco Screening [facility] Start: 09-25-2025 Tobacco Screening Tobacco Screening [facility] Start: 09-18-2025 Adult BMI Screening Adult BMI Screening [facility] Start: 09-18-2025 Tobacco Screening Tobacco Screening [facility] Start: 08-07-2025 Adult BMI Screening Adult BMI Screening [facility] Start: 08-07-2025 Tobacco Screening Tobacco Screening [facility] Start: 07-18-2025 Adult BMI Screening Adult BMI Screening [facility] Start: 07-18-2025 Statin Use: Cardiovascular Statin Use: Cardiovascular [facility] Start: 07-18-2025 Statin Use: Diabetic Statin Use: Diabetic [facility] Start: 07-16-2025 Adult BMI Screening Adult BMI Screening [facility] Start: 07-16-2025 Depression Screening Depression Screening [facility] Start: 07-16-2025 Tobacco Screening Tobacco Screening [facility] Start: 06-26-2025 Adult BMI Screening Adult BMI Screening [facility] Start: 06-26-2025 Tobacco Screening Tobacco Screening [facility] Start: 05-22-2025 Medicare Annual Wellness (AWV) Medicare Annual Wellness (AWV) [facility] Start: 04-20-2025 End: 07-20-2025 [id number] [Mass/volume] in Serum or Plasma B2 MICROGLOBULIN Lab Routine MGUS (monoclonal gammopathy of unknown significance) Expected: 04/20/2025 (Approximate), Expires: 07/20/2025 [facility] Comment on above: Expected: 04/20/2025 (Approximate), Expi res: 07/20/2025 Start: 04-20-2025 End: 07-20-2025 CBC W Auto Differential panel - Blood COMPLETE BLOOD COUNT AND DIFFERENTIAL Lab Routine MGUS (monoclonal gammopathy of unknown significance) Expected: 04/20/2025 (Approximate), Expires: 07/20/2025 [facility] Comment on above: Expected: 04/20/2025 (Approximate), Expi res: 07/20/2025 Start: 04-20-2025 End: 07-20-2025 Comprehensive metabolic 2000 panel - Serum or Plasma COMPREHENSIVE METABOLIC PANEL Lab Routine MGUS (monoclonal gammopathy of unknown significance) Expected: 04/20/2025 (Approximate), Expires: 07/20/2025 [facility] Comment on above: Expected: 04/20/2025 (Approximate), Expi res: 07/20/2025 Start: 04-20-2025 End: 07-20-2025 IMMUNOGLOBULINS,IGG,IGA,I GM IMMUNOGLOBULINS,IGG,IGA,I GM Lab Routine MGUS (monoclonal gammopathy of unknown significance) Expected: 04/20/2025 (Approximate), Expires: 07/20/2025 [facility] Comment on above: Expected: 04/20/2025 (Approximate), Expi res: 07/20/2025 Start: 04-20-2025 End: 07-20-2025 Lactate dehydrogenase [Enzymatic activity/volume] in Serum or Plasma LACTATE DEHYDROGENASE Lab Routine MGUS (monoclonal gammopathy of unknown significance) Expected: 04/20/2025 (Approximate), Expires: 07/20/2025 [facility] Work Phone: Comment on above: Expected: 04/20/2025 (Approximate), Expi res: 07/20/2025 Start: 04-20-2025 End: 07-20-2025 MYELOPROLIFERATIVE NEOPLASM PANEL BLOOD MYELOPROLIFERATIVE NEOPLASM PANEL BLOOD Lab Routine MGUS (monoclonal gammopathy of unknown significance) Expected: 04/20/2025 (Approximate), Expires: 07/20/2025 [facility] Comment on above: Expected: 04/20/2025 (Approximate), Expi res: 07/20/2025 Start: 04-20-2025 End: 07-20-2025 Protein [Mass/volume] in Serum or Plasma PROTEIN, TOTAL Lab Routine MGUS (monoclonal gammopathy of unknown significance) Expected: 04/20/2025 (Approximate), Expires: 07/20/2025 [facility] Comment on above: Expected: 04/20/2025 (Approximate), Expi res: 07/20/2025 Start: 04-20-2025 End: 07-20-2025 PROTEIN ELECTROPHORESIS SERUM W/INTERP PROTEIN ELECTROPHORESIS SERUM W/INTERP Lab Routine MGUS (monoclonal gammopathy of unknown significance) Expected: 04/20/2025 (Approximate), Expires: 07/20/2025 [facility] Comment on above: Expected: 04/20/2025 (Approximate), Expi res: 07/20/2025 Start: 04-20-2025 End: 07-20-2025 SERUM VISCOSITY SERUM VISCOSITY Lab Routine MGUS (monoclonal gammopathy of unknown significance) Expected: 04/20/2025 (Approximate), Expires: 07/20/2025 [facility] Comment on above: Expected: 04/20/2025 (Approximate), Expi res: 07/20/2025 Start: 04-20-2025 End: 07-20-2025 Urate [Mass/volume] in Serum or Plasma URIC ACID Lab Routine MGUS (monoclonal gammopathy of unknown significance) Expected: 04/20/2025 (Approximate), Expires: 07/20/2025 [facility] Comment on above: Expected: 04/20/2025 (Approximate), Expi res: 07/20/2025 Start: 04-19-2025 End: 04-19-2025 Follow-up encounter 04/19/2025 10:00 AM EST Visit (SP) Office Hematology/Oncology [address] [place] [address] [place] [address] Jefferson Dewitt MD [address] [place] [address] 1 year follow up, labs 1 week prior Hematology/Oncology Comment on above: 1 year follow up, labs 1 week prior Start: 04-12-2025 End: 04-12-2025 Patient encounter procedure 04/12/2025 10:00 AM EST Office Visit [facility] [address] [place] [address] lab [facility] Comment on above: lab Start: 04-09-2025 DIABETES SCREEN DIABETES SCREEN [facility] Start: 03-07-2025 Tobacco Screening Tobacco Screening [facility] Start: 03-06-2025 End: 03-06-2025 Clinical Support [facility] Start: 02-13-2025 Hepatitis B screening Urine Albumin:Creatinine Ratio [facility] Start: 02-13-2025 Urine screening for protein Diabetes: Urine Protein Screening [facility] Start: 02-04-2025 End: 02-04-2025 Patient encounter procedure 02/04/2025 2:15 PM EST Office Visit [facility] [address] [place] [phone] Piedad Ulloa MD [address] [place] [address] [facility] Start: 01-30-2025 End: 01-30-2025 Clinical Support 01/30/2025 4:00 PM EDT Clinical Support [facility] [address] [place] [address] [place] [phone] Isma Cohen, [address] [facility], [address] [place], [place] [phone] [facility] Start: 01-08-2025 Hemoglobin A1c measurement Diabetes: Hemoglobin A1C [facility] Start: 01-02-2025 End: 01-02-2025 Patient encounter procedure 01/02/2025 10:00 AM EDT Office Visit [facility] [address] [place] [phone] Taras Wright MD [address] [place] [address] [facility] Start: 12-03-2024 COVID-19 Vaccine ( season) COVID-19 Vaccine ( season) [facility] Start: 12-03-2024 Influenza vaccination Influenza Vaccine [facility] Start: 10-08-2024 End: 10-08-2024 Admission to same day surgery center [facility] Comment on above: COLONOSCOPY DIAGNOSTIC / SCREENING [G012 1 +1 more] Start: 10-08-2024 End: 10-08-2024 Anesthesia consultation 10/08/2024 9:45 AM EDT Anesthesia Event [facility] Surgery [address] [place] [address] Eitan Medina, DO [address] [facility] [place] [address] [facility] Start: 10-08-2024 End: 10-08-2024 Colon ca scrn not hi rsk ind [facility] Start: 10-08-2024 Subsequent hospital visit by physician [facility] Start: 10-02-2024 End: 10-02-2024 ambulatory 10/02/2024 4:00 PM EDT Support Visit [facility] - Pre Admit [address] [place] [address] [facility] Pre Admit Start: 09-21-2024 COVID-19 Vaccine ( season) COVID-19 Vaccine ( season) [facility] Start: 09-07-2024 End: 08-07-2025 Lipid panel Lipid panel Lab Routine Coronary artery disease of [place] artery of [place] heart with stable angina pectoris Expected: 09/07/2024 (Approximate), Expires: 08/07/2025 [facility] Work Phone: Comment on above: Expected: 09/07/2024 (Approximate), Expi res: 08/07/2025 Start: 09-07-2024 End: 09-07-2024 ambulatory 09/07/2024 7:30 AM EDT Lab [facility] Lab [address] [place] [address] [facility] Lab Start: 08-29-2024 End: 08-29-2025 Device Interrogation Device Interrogation Cardiac Services Routine Pacemaker - Flores Expected: 08/29/2024, Expires: 08/29/2025 [facility] Work Phone: Comment on above: Expected: 08/29/2024, Expires: Start: 08-29-2024 End: 08-29-2024 Clinical Support 08/29/2024 1:45 PM EDT Clinical Support [facility] [address] [place] [phone] [facility] Start: 08-13-2024 Hemoglobin A1c measurement [facility] Start: 08-07-2024 End: 08-07-2024 Patient encounter procedure 08/07/2024 8:30 AM EDT Office Visit [facility] [address] [place] [phone] Delmar Aranda PA-C [address] [place] [address] [facility] Start: 08-01-2024 End: 08-01-2024 Patient encounter procedure 08/01/2024 2:00 PM EDT Appointment [facility] - Cardiovascular [address] [place] [address] Carlos Enrique See MD [address] [place] [address] [facility] Start: 07-30-2024 End: 07-30-2024 Admission to same day surgery center 07/30/2024 8:30 AM EDT - 07/30/2024 9:30 AM EDT Surgery [facility] Cardiac Cath [address] [place] [phone] Lucille Saenz MD [address] [place], [place] [id number] Cardiac Invasive [facility] Cardiac Cath Comment on above: Cardiac Invasive Start: 07-30-2024 Subsequent hospital visit by physician [facility] Cardiac Cath Comment on above: Unstable angina ([facility]) Start: 07-27-2024 End: 07-27-2024 Patient encounter procedure 07/27/2024 8:30 AM EDT [facility] [address] [place] [address] Sindy Sutherland MD [address] [place] [phone] [facility] Start: 07-25-2024 End: 07-18-2025 Natriuretic peptide B [Mass/volume] in Blood B-type natriuretic peptide Lab Routine Complete heart block ([facility]) 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 ([facility]) Expected: 07/25/2024 (Approximate), Expires: 07/18/2025 [facility] Comment on above: Expected: 07/25/2024 (Approximate), Expi res: 07/18/2025 Start: 07-16-2024 End: 07-16-2025 Echo complete W/O contrast Echo complete W/O contrast Echocardiography Routine KIM (dyspnea on exertion) Expected: 07/16/2024, Expires: 07/16/2025 [facility] Work Phone: Comment on above: Expected: 07/16/2024, Expires: Start: 07-09-2024 End: 07-09-2024 Patient encounter procedure 07/09/2024 9:30 AM EDT Appointment [facility] Cardiovascular [address] [place] [phone] Bonnie Garrido, HYPO DIPPER-EXTENSION CLERK [address] [place] [phone] [facility] Start: 07-04-2024 End: 07-04-2024 Patient encounter procedure [facility] Start: 07-03-2024 End: 07-03-2025 Hemoglobin A1c/Hemoglobin.total in Blood Hemoglobin A1c Lab Routine Type 2 diabetes mellitus with hyperglycemia, without long-term current use of insulin ([facility]) Expected: 07/03/2024 (Approximate), Expires: 07/03/2025 [facility] Work Phone: Comment on above: Expected: 07/03/2024 (Approximate), Expi res: 07/03/2025 Start: 07-03-2024 End: 07-03-2024 Patient encounter procedure 07/03/2024 1:00 PM EDT Office Visit [facility] [address] [place] [phone] Taras Wright MD [address] [place] [phone] [facility] Start: 06-26-2024 Adult BMI Screening Adult BMI Screening [facility] Start: 06-26-2024 End: 06-26-2025 CTA Heart and Coronary arteries WO and W contrast IV CT angiogram coronary arteries with or without scoring Imaging Routine Coronary artery disease of [place] artery of [place] heart with stable angina pectoris ([facility]) Chest pain, unspecified type KIM (dyspnea on exertion) Expected: 06/26/2024, Expires: 06/26/2025 [facility] Work Phone: Comment on above: Expected: 06/26/2024, Expires: Start: 06-26-2024 End: 06-26-2025 Holter monitor study Holter monitor 24-48 hour Cardiac Services Routine Sinus arrhythmia Expected: 06/26/2024, Expires: 06/26/2025 [facility] Comment on above: Expected: 06/26/2024, Expires: Start: 06-26-2024 Tobacco Screening Tobacco Screening [facility] Start: 06-26-2024 End: 06-26-2024 Patient encounter procedure 06/26/2024 9:00 AM EDT Office Visit [facility] [address] [place] [address] Bonnie Garrido, HYPO DIPPER-EXTENSION CLERK [address] [place] [address] [facility] Start: 06-03-2024 Screening for malignant neoplasm of colon [facility] Start: 05-22-2024 End: 05-22-2024 Patient encounter procedure [facility] Comment on above: Arrived Start: 04-23-2024 Statin Use: Diabetic Statin Use: Diabetic [facility] Start: 04-04-2024 Advance Directive Discussion Advance Directive Discussion [facility] Start: 02-13-2024 End: 02-12-2025 Albumin, urine, random Albumin, urine, random Lab Routine Type 2 diabetes mellitus with hyperglycemia, without long-term current use of insulin (CMS/HCC) Expected: 02/13/2024 (Approximate), Expires: 02/12/2025 [facility] Work Phone: Comment on above: Expected: 02/13/2024 (Approximate), Expi res: 02/12/2025 Start: 02-13-2024 End: 02-12-2025 Hemoglobin A1c/Hemoglobin.total in Blood Hemoglobin A1c Lab Routine Type 2 diabetes mellitus with hyperglycemia, without long-term current use of insulin (CMS/HCC) Expected: 02/13/2024 (Approximate), Expires: 02/12/2025 [facility] Comment on above: Expected: 02/13/2024 (Approximate), Expi res: 02/12/2025 Start: 02-13-2024 End: 02-13-2024 Patient encounter procedure 02/13/2024 9:30 AM EST Office Visit [facility] [address] [place] [address] Taras Wright MD [address] [place] [address] Arrived [facility] Comment on above: Arrived Start: 01-01-2024 Adult BMI Screening Adult BMI Screening [facility] Start: 01-01-2024 Tobacco Screening Tobacco Screening [facility] Start: 12-04-2023 COVID-19 Vaccine ( season) COVID-19 Vaccine () [facility] Start: 12-04-2023 COVID-19 Vaccine () COVID-19 Vaccine () [facility] Start: 12-04-2023 Influenza vaccination [facility] Start: 11-26-2023 Hemoglobin A1c measurement Diabetes: Hemoglobin A1C [facility] Start: 06-27-2023 End: 06-27-2023 Patient encounter procedure 06/27/2023 10:30 AM EDT Office Visit [facility] [address] [facility] [address] [place] [address] Faviola Gonzalez MD [address] [place] [address] [facility] Start: 06-02-2023 COVID-19 Vaccine ( season) COVID-19 Vaccine () [facility] Start: 04-16-2023 End: 04-16-2023 [id number] [Mass/volume] in Serum or Plasma B2 MICROGLOBULIN B Lab Routine MGUS (monoclonal gammopathy of unknown significance) Idiopathic peripheral autonomic neuropathy Expected: 04/16/2023 (Approximate), Expires: 04/16/2023 [facility] Work Phone: Comment on above: Expected: 04/16/2023 (Approximate), Expi res: 04/16/2023 Start: 04-16-2023 End: 04-16-2023 Calcium.ionized [Moles/volume] in Blood CALCIUM IONIZED BLOOD Lab Routine MGUS (monoclonal gammopathy of unknown significance) Idiopathic peripheral autonomic neuropathy Expected: 04/16/2023 (Approximate), Expires: 04/16/2023 [facility] Work Phone: Comment on above: Expected: 04/16/2023 (Approximate), Expi res: 04/16/2023 Start: 04-16-2023 End: 04-16-2023 CBC W Auto Differential panel - Blood CBC + DIFF Lab Routine MGUS (monoclonal gammopathy of unknown significance) Idiopathic peripheral autonomic neuropathy Expected: 04/16/2023 (Approximate), Expires: 04/16/2023 [facility] Work Phone: Comment on above: Expected: 04/16/2023 (Approximate), Expi res: 04/16/2023 Start: 04-16-2023 End: 04-16-2023 Comprehensive metabolic 2000 panel - Serum or Plasma COMP METABOLIC PANEL Lab Routine MGUS (monoclonal gammopathy of unknown significance) Idiopathic peripheral autonomic neuropathy Expected: 04/16/2023 (Approximate), Expires: 04/16/2023 [facility] Work Phone: Comment on above: Expected: 04/16/2023 (Approximate), Expi res: 04/16/2023 Start: 04-16-2023 End: 06-16-2023 KAPPA/SERRATO,FREE,SER KAPPA/SERRATO,FREE,SER Lab Routine MGUS (monoclonal gammopathy of unknown significance) Idiopathic peripheral autonomic neuropathy Expected: 04/16/2023 (Approximate), Expires: 06/16/2023 [facility] Work Phone: Comment on above: Expected: 04/16/2023 (Approximate), Expi res: 06/16/2023 Start: 04-16-2023 End: 04-16-2023 Lactate dehydrogenase [Enzymatic activity/volume] in Serum or Plasma LD LACTATE DEHYDRO Lab Routine MGUS (monoclonal gammopathy of unknown significance) Idiopathic peripheral autonomic neuropathy Expected: 04/16/2023 (Approximate), Expires: 04/16/2023 [facility] Work Phone: Comment on above: Expected: 04/16/2023 (Approximate), Expi res: 04/16/2023 Start: 04-16-2023 End: 04-16-2023 MONOCLONAL PROTEIN, SERUM (BLOOD) MONOCLONAL PROTEIN, SERUM (BLOOD) Lab Routine MGUS (monoclonal gammopathy of unknown significance) Idiopathic peripheral autonomic neuropathy Expected: 04/16/2023 (Approximate), Expires: 04/16/2023 [facility] Work Phone: Comment on above: Expected: 04/16/2023 (Approximate), Expi res: 04/16/2023 Start: 04-16-2023 End: 04-16-2023 Phosphate [Mass/volume] in Serum or Plasma PHOSPHORUS INORGANIC Lab Routine MGUS (monoclonal gammopathy of unknown significance) Idiopathic peripheral autonomic neuropathy Expected: 04/16/2023 (Approximate), Expires: 04/16/2023 [facility] Work Phone: Comment on above: Expected: 04/16/2023 (Approximate), Expi res: 04/16/2023 Start: 04-16-2023 End: 04-16-2023 PROTEIN ELECTROPHORESIS SERUM W/INTERP PROTEIN ELECTROPHORESIS SERUM W/INTERP Lab Routine MGUS (monoclonal gammopathy of unknown significance) Idiopathic peripheral autonomic neuropathy Expected: 04/16/2023 (Approximate), Expires: 04/16/2023 [facility] Work Phone: Comment on above: Expected: 04/16/2023 (Approximate), Expi res: 04/16/2023 Start: 04-16-2023 End: 04-16-2023 Urate [Mass/volume] in Serum or Plasma URIC ACID BLOOD Lab Routine MGUS (monoclonal gammopathy of unknown significance) Idiopathic peripheral autonomic neuropathy Expected: 04/16/2023 (Approximate), Expires: 04/16/2023 [facility] Work Phone: Comment on above: Expected: 04/16/2023 (Approximate), Expi res: 04/16/2023 Start: 12-03-2022 COVID-19 Vaccine () COVID-19 Vaccine () [facility] Start: 12-03-2022 Influenza vaccination Influenza Vaccine [facility] Start: 04-17-2022 Hepatitis B surface antibody level LDL Cholesterol [facility] Start: 04-04-2022 ADVANCE DIRECTIVE DISCUSSION ADVANCE DIRECTIVE DISCUSSION [facility] Start: 04-04-2022 DEPRESSION ASSESSMENT DEPRESSION ASSESSMENT [facility] Start: 10-24-2021 DTaP,Tdap and Td Vaccines (2 - Td or Tdap) DTaP,Tdap and Td Vaccines (2 - Td or Tdap) [facility] Start: 10-24-2021 Urine microalbumin profile [facility] Start: 02-08-2021 PNEUMOCOCCAL: 65+ (2 - PPSV23 if available, else PCV20) PNEUMOCOCCAL: 65+ (2 - PPSV23 if available, else PCV20) [facility] Start: 01-20-2017 Fall Risk Screening Fall Risk Screening [facility] Start: 01-25-2016 Medicare Annual Wellness (AWV) Medicare Annual Wellness (AWV) [facility] Start: 10-02-2015 Administration of varicella zoster vaccine Zoster (Shingles) Vaccine (2 of 3) [facility] Start: 10-02-2015 SHINGRIX VACCINE (2 of 3) SHINGRIX VACCINE (2 of 3) [facility] Start: 01-20-1997 COLOGUARD (FIT-DNA) COLOGUARD (FIT-DNA) [facility] Start: 01-20-1997 Colonoscopy COLONOSCOPY [facility] Start: 01-20-1997 COLORECTAL CANCER SCREENING COLORECTAL CANCER SCREENING [facility] Start: 01-20-[address] COLONOGRAPHY [facility] Start: 01-20-1997 FECAL OCCULT BLOOD FECAL OCCULT BLOOD [facility] Start: 01-20-1997 Screening for malignant neoplasm of colon [facility] Start: 01-20-1997 SIGMOIDOSCOPY SIGMOIDOSCOPY [facility] Start: 01-20-1971 Urine screening for protein Diabetes: Urine Protein Screening [facility] Start: 01-20-1970 Adult BMI Follow Up Plan Adult BMI Follow Up Plan [facility] Start: 01-20-1970 Annual PCP Team Chronic Disease Visit Annual PCP Team Chronic Disease Visit [facility] Start: 01-20-1970 Anxiety Screening Anxiety Screening [facility] Start: 01-20-1970 Depression Screening Depression Screening [facility] Start: 01-20-1970 Diabetic foot examination Diabetic Foot Exam [facility] Start: 01-20-1970 HEPATITIS C SCREENING HEPATITIS C SCREENING [facility] Start: 01-20-1970 Hepatitis C screening Hepatitis C Screening [facility] Start: 1964 Depression Screening Depression Screening [facility] Start: 01-20-1962 Diabetic foot examination Diabetic Foot Exam [facility] Start: 01-20-1962 Glaucoma screening [facility] Start: 1950 Glaucoma screening Diabetic Ophthalmology Exam [facility] Start: 1950 Medicare Annual Wellness Visit Medicare Annual Wellness Visit [facility] Start: 1950 Screening for malignant neoplasm of colon [facility] End: 07-16-2025 Basic metabolic 2000 panel - Serum or Plasma Basic Metabolic Panel Lab Routine Coronary artery disease of [place] artery [place] heart with stable angina pectoris KIM (dyspnea on exertion) 1 Occurrences starting 07/16/2024 until 07/16/2025 [employer] Comment on above: 1 Occurrences starting 07/16/2024 until 07/16/2025 Basic metabolic 2000 panel - Serum or Plasma Basic Metabolic Panel Lab Routine Coronary artery disease [place] artery [place] heart with stable angina pectoris KIM (dyspnea on exertion) 07/16/2024 8:46 AM EDT [employer] End: 07-16-2025 CBC panel - Blood by Automated count CBC Lab Routine Coronary artery disease [place] artery [place] heart with stable angina pectoris KIM (dyspnea on exertion) 1 Occurrences starting 07/16/2024 until 07/16/2025 [employer] Comment on above: 1 Occurrences starting 07/16/2024 until 07/16/2025 CBC panel - Blood by Automated count CBC without diff Lab Routine Coronary artery disease [place] artery [place] heart with stable angina pectoris KIM (dyspnea on exertion) 07/16/2024 8:46 AM EDT [employer] End: 09-18-2025 Colonoscopy Colonoscopy GI Routine Encounter for screening colonoscopy 1 Occurrences starting 09/18/2024 until 09/18/2025 [employer] Work Phone: Comment on above: 1 Occurrences starting 09/18/2024 until 09/18/2025 End: 07-18-2025 Comprehensive metabolic 2000 panel - Serum or Plasma Comprehensive metabolic panel Lab Routine Complete heart block ([facility]) 1 Occurrences starting 07/18/2024 until 07/18/2025 [employer] Comment on above: 1 Occurrences starting 07/18/2024 until 07/18/2025 End: 06-26-2025 Creatinine includes GFR, serum Creatinine includes GFR, serum Lab Routine Coronary artery disease [place] artery [place] heart with stable angina pectoris ([facility]) Chest pain, unspecified type KIM (dyspnea on exertion) 1 Occurrences starting 06/26/2024 until 06/26/2025 [employer] Comment on above: 1 Occurrences starting 06/26/2024 until 06/26/2025 Creatinine includes GFR, serum Creatinine includes GFR, serum Lab Routine Coronary artery disease [place] artery [place] heart with stable angina pectoris ([facility]) Chest pain, unspecified type KIM (dyspnea on exertion) 06/26/2024 10:05 AM EDT [employer] EP INVASIVE EP INVASIVE Comp lete AV block. [employer] End: 08-16-2024 Lipid panel Lipid panel Lab Routine Hyperlipidemia, unspecified hyperlipidemia type 1 Occurrences starting 08/17/2023 until 08/16/2024 [employer] Work Phone: Comment on above: 1 Occurrences starting 08/17/2023 until 08/16/2024 End: 07-16-2024 Troponin I, High Sensitivity 1 Hour Troponin I, High Sensitivity 1 Hour Lab STAT STAT for 1 Occurrences starting 07/16/2024 until 07/16/2024 [employer] Work Phone: Comment on above: STAT for 1 Occurrences starting 07/17/19 until 07/16/2024 [facility] Immun[facility] Immunization Date Immunization Notes Care Provider Fa cili 03-23-2024 influenza, high dose seasonal, preservative-free Ciara Jang RN [employer] 03-23-2024 Pneumococcal Conjuga te 20-valent Ciara Jang [facility] [employer] [facility] 03-23-2024 influenza virus vacc ine, unspecified formulation Rosanna Capellan HYPO DIPPER[employer]EXTENSION CLERK Work Phone: [facility] 01-31-2023 Influenza Vaccine, Quadrivalent, Adjuvanted Ciara Jang RN [facility] 01-31-2023 RSV, recombinant, protein subunit RSVpreF, adjuvant reconstituted, 0.5 mL, PF Ciara Jang RN [facility] 01-31-2023 influenza virus vacc ine, unspecified formulation Gretchen Devi RN [facility] 12-28-2021 Influenza, High-dose , Quadrivalent Ciara Jang RN [facility] 12-28-2021 influenza virus vacc ine, unspecified formulation Hayde Nash [facility] 09-28-2021 pneumococcal polysaccharide vaccine, 23 valent Ciara Jang RN [facility] 06-16-2020 COVID-19, mRNA, LNP- S, PF, 30mcg/0.3mL Dose [place] Nash [facility] 05-26-2020 COVID-19, mRNA, LNP- S, PF, 30mcg/0.3mL Dose [place] Nash [facility] 02-09-2020 influenza, high-dose , quadrivalent vaccine (FLUZONE HIGH DOSE QUADRIVALENT) Jefferson Dewitt MD Work Phone: [facility] 02-09-2020 pneumococcal conjuga te vaccine, 13 valent Jefferson Dewitt MD Work Phone: [facility] 08-07-2015 zoster vaccine, live Jefferson sanchez MD Work Phone: [facility] 08-07-2015 zoster vaccine, unspecified formulation [place] Nash [facility] 01-24-2015 influenza, injectabl e, quadrivalent, preservative free Jefferson Dewitt MD Work Phone: [facility] 01-25-2014 influenza, seasonal, injectable Jefferson Dewitt MD Work Phone: [facility] 01-03-2013 influenza, seasonal, injectable Jefferson Dewitt MD Work Phone: [facility] 10-25-2011 tetanus toxoid, redu kimmy diphtheria toxoid, and acellular pertussis vaccine, adsorbed Jefferson Dewitt MD Work Phone: [facility] 04-04-2011 influenza, seasonal, injectable Jefferson Dewitt MD Work Phone: [facility] 04-04-2010 influenza, seasonal, injectable Jefferson Dewitt MD Work Phone: [facility] Payers Date Payer Category Payer Private Health Insurance [employer] [id number] 2017 Medicare [id number] 2016 Managed Care Other (unspecified) [employer] [id number] 2016 Unknown [id number] 1.13.159. [id number] 1959 Medicare [id number] 1959 Unknown [id number] 1952 Unknown [id number] 2.16.840.1.499978.3.579. 2.593 1952 Unknown [id number] 2.16.840.1.958084.3.579. 2.1259 1952 Unknown [id number] 2.16.840.1.538137.3.579. 2.1259 1952 Unknown [id number] 2.16.840.1.543132.3.579. 2.1259 1952 Unknown [id number] 2.16.840.1.577937.3.579. 2.1259 1952 Unknown [id number] 2.16.840.1.715866.3.579. 2.1259 1952 Unknown [id number] 2.16.840.1.154398.3.579. 2.1286 1952 Unknown [id number] 2.16.840.1.643882.3.579. 2.128 1952 Unknown [id number] 2.16.840.1.733924.3.579. 2.1286 1952 Unknown [id number] 2.16.840.1.270561.3.579. 2.1286 1952 Unknown [id number] 2.16.840.1.115354.3.579. 2.1286 1952 Unknown [id number] 2.16.840.1.326100.3.579. 2.1286 1952 Unknown [id number] 2.16.840.1.165147.3.579. 2.1286 1952 Unknown [id number] 2.16.840.1.455164.3.579. 2.1286 1952 Unknown [id number] 2.16.840.1.061676.3.579. 2.1286 1952 Unknown [id number] 2.16.840.1.668135.3.579. 2.1286 1952 Unknown [id number] 2.16.840.1.814750.3.579. 2.1286 1952 Unknown [id number] 2.16.840.1.473945.3.579. 2.1286 1952 Unknown [id number] 2.16.840.1.634389.3.579. 2.1286 1952 Unknown [id number] 2.16.840.1.695987.3.579. 2.1286 1952 Unknown [id number] 2.16.840.1.871804.3.579. 2.1286 1952 Unknown [id number] 2.16.840.1.160355.3.579. 2.1286 1952 Unknown [id number] 2.16.840.1.746206.3.579. 2.1286 1952 Unknown [id number] 2.16.840.1.457897.3.579. 2.1286 1952 Unknown [id number] 2.16.840.1.322240.3.579. 2.1286 1952 Unknown [id number] 2.16.840.1.926884.3.579. 2.1286 Unknown [id number] Social History Date Type Detail Facility Start: 06-20-2017 End: 06-25-2022 Tobacco smoking status INIS Never smoked tobacco [facility] Start: 06-20-2017 End: 06-25-2022 Tobacco use and exposure Smokeless tobacco non-user [facility] Start: 04-16-2022 End: 04-15-2023 Alcohol intake Current non-drinker of alcohol (finding) [facility] Start: 1950 Sex Assigned At Not on file [facility] Start: 05-15-2020 End: 08-18-2023 History of Social function [facility] Start: 05-15-2020 End: 08-18-2023 Social connection and isolation panel [facility] Do you belong to any clubs or organizations such as islam groups, unions, fraternal or athletic groups, or school groups? Yes [facility] Are you now , , , , never or living with a partner? [facility] How often to you hav e a drink containing alcohol? 2-4 times a month [facility] How many standard dr inks containing alcohol do you have on a typical day? 1 or 2 [facility] How often do you hav e 6 or more drinks on 1 occasion? Never [facility] How hard is it for y ou to pay for the very basics like food, housing, medical care, and heating Not hard at all [facility] Do you feel stress - tense, restless, nervous, or anxious, or unable to sleep at night because your mind is troubled all the time - these days [OSQ] Not at all [facility] (I/We) worried wheelma er (my/our) food would run out before (I/we) got money to buy more. Never true [facility] In the past 12 month s, was there a time when you were not able to pay the mortgage or rent on time? No [facility] Start: 06-27-2023 End: 12-31-2024 Alcoholic beverage intake Current drinker of alcohol (finding) [facility] Start: 05-05-2019 Alcohol Comment 2-3 times per week [facility] Start: 10-22-2021 Sexual orientation Heterosexual (finding) [facility] Start: 11-05-2014 Sex Male (finding) [facility] Start: 12-31-2024 Alcohol Comment Alcohol use rare [facility] Medical Equipment Procedure Code Equipment Code Equipment Origin al Text Equipment Identifier Dates Lens Iol 0 D +14 .5 D +3 Cyl Bicvx Acrsf Iq Stableforce 13mm - [id number] - [id number] Start: 01-08-2021 Lens Iol Ultrase rt 13.5d - [id number] - [id number] Start: 01-20-2021 Lead Pcng 65cm Ultipace Mr Conditional Bp Strd Emmie Pu Ptfe - [id number] - [id number] [id number], [id number] FDA Start: 07-17-2024 Lead Pcng 52cm Ultipace Mr Conditional Bp Strd Emmie Pu Ptfe - [id number] - [id number] [id number], [id number] FDA Start: 07-17-2024 Pacemaker Thk6mm Assurity Mri 2 Chmbr Is-1 Cnct [id number] [facility] - [id number] - [id number] ()[id number], [id number] FDA Start: 07-17-2024 Goals Date Patient Goal Desired Activity /State Personal health goal Functional Status Date Assessment Result Facility 07-16-2024 Humiliation, Afraid, Rape, and Kick questionnaire [HARK] [facility] 07-16-2024 Total score [AUDIT-C] 2 07/17/19 25 5:19 PM EDT Leisa Rodriguez, EMILY [facility] Mental Status Date Assessment Result [facility] 04-16-2022 to 12-31-2024 Assessment & Plan Note - Isma Cohen DO - 12/31/2024 1:07 PM EDTAssessment & Plan Note - Isma Cohen DO - 12/31/2024 1:07 PM EDTMnuno Cohen DO - 12/31/2024 10:30 AM EDT Note Date & Type Note Facility 12-31-2024 Evaluation + Plan note Associated Problem(s): Anemia History of normocytic anemia from July 2024. Ordered CBC to evaluate degree of anemia [facility] 12-31-2024 Miscellaneous Notes Associated Problem(s): Anemia History of normocytic anemia from July 2024. Ordered CBC to evaluate degree of anemia Associated Problem(s): Peripheral polyneuropathy Prior work up for neuropathy preformed. Patient currently on Gabapentin 300 mg 1 capsule twice daily for neuropathic pain control Associated Problem(s): Type 2 diabetes mellitus with diabetic polyneuropathy ([facility]) Last HbA1c from 07/09/24 was 7.0%. Continue with Jardiance 10 mg daily as prescribed by cardiology for congestive heart failure. Ordered labs including Hemoglobin A1c, thyroid profile, comprehensive metabolic panel and urine microalbumin. Patient may benefit from GLP-1 treatment for diabetes management and weight loss as patient's BMI 33 documented in this encounter [facility] 12-31-2024 Evaluation + Plan note Associated Problem(s): Peripheral polyneuropathy Prior work up for neuropathy preformed. Patient currently on Gabapentin 300 mg 1 capsule twice daily for neuropathic pain control [facility] [employer] 12-31-2024 Evaluation + Plan note Associated Problem(s): Type 2 diabetes mellitus with diabetic polyneuropathy ([facility]) Last HbA1c from 07/09/24 was 7.0%. Continue with Jardiance 10 mg daily as prescribed by cardiology for congestive heart failure. Ordered labs including Hemoglobin A1c, thyroid profile, comprehensive metabolic panel and urine microalbumin. Patient may benefit from GLP-1 treatment for diabetes management and weight loss as patient's BMI 33 [facility] 12-31-2024 History of Present illness Narrative Images from the original note were not included. [facility] [address] [place] [address] [place] [address] Patient: Morris Belle Date of : 1950 Encounter Date: 12/31/2024 Subjective: Chief Complaint Chief Complaint Patient presents with Establish Care History of Present Illness Morris Belle is a 74 y.o. male, established patient, that presents to the office to establish care. Patient with hx of CAD with angina, Complete heart block s/p pacemaker placed on 07/17/24, peripheral vascular disease, type 2 diabetes, polyneuropathy of feet bilaterally since 2005, dyslipidemia, History provided by patient. Diabetes He presents for his follow-up diabetic visit. He has type 2 diabetes mellitus. Disease course: Last Hba1c from 07/09/24 was 7.0% Pertinent negatives for hypoglycemia include no dizziness. Associated symptoms include foot paresthesias. Pertinent negatives for diabetes include no chest pain and no foot ulcerations. (Does have deformity of foot with bunion and procedure to straighten toes as had flexion contracture of toes. Patient states that straightening procedure for toes was not successful ) Symptoms are stable. Diabetic complications include peripheral neuropathy. Current diabetic treatments: Current meds: jardiance 10 mg daily. Review of Systems Review of Systems Constitutional: Patient states that since pacemaker placed that he has been more active with exercising like bike riding and swelling and puffiness in feet and lower legs has resolved. Patient states that he is concerned about not being able to lose weight. HENT: Positive for voice change. Negative for trouble swallowing. Has hoarseness in voice and throat clearing that appears to he related Cardiovascular: Negative for chest pain. Gastrointestinal: Negative for abdominal pain, blood in stool, constipation, diarrhea, nausea and vomiting. Genitourinary: Negative for difficulty urinating and dysuria. Denies rash around genital area Neurological: Positive for light-headedness (Rarely occurs and when does is very brief). Negative for dizziness and syncope. Hematological: Does not bruise/bleed easily. 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 He follows yearly in April and has not required any treatment Vital Signs BP 122/84 (BP Site: Left Arm, BP Postition: Sitting) Pulse 60 Temp 36.6 C (97.8 F) (Oral) Ht 166 cm (5' 5.35 ) Wt 91 kg (200 lb 9.6 oz) SpO2 96% BMI 33.02 kg/m Physical Exam Physical Exam Vitals reviewed. Constitutional: General: He is not in acute distress. Appearance: He is overweight. He is not ill-appearing or toxic-appearing. HENT: Head: Normocephalic and atraumatic. Right Ear: There is no impacted cerumen. Tympanic membrane is not injected, scarred, perforated, erythematous, retracted or bulging. Left Ear: There is no impacted cerumen. Tympanic membrane is not injected, scarred, perforated, erythematous, retracted or bulging. Mouth/Throat: Lips: [place]. No lesions. Mouth: Mucous membranes are moist. Tongue: No lesions. Tongue does not deviate from midline. Pharynx: Oropharynx is clear. Uvula midline. No pharyngeal swelling, oropharyngeal exudate, posterior oropharyngeal erythema or uvula swelling. Neck: Vascular: No carotid bruit. Cardiovascular: Rate and Rhythm: Normal rate and regular rhythm. Pulses: Posterior tibial pulses are 2+ on the right side and 2+ on the left side. Heart sounds: No murmur heard. Pulmonary: Effort: Pulmonary effort is normal. No accessory muscle usage or respiratory distress. Breath sounds: Normal breath sounds. No decreased breath sounds, wheezing, rhonchi or rales. Abdominal: General: Bowel sounds are normal. There is no distension. Palpations: Abdomen is soft. Musculoskeletal: Cervical back: Neck supple. Right lower leg: No edema. Left lower leg: No edema. Lymphadenopathy: Cervical: No cervical adenopathy. Past Medical, Family, Surgery and Social History Past Medical History: Diagnosis Date Abscess Allergic [...] Cardiac catheterization - CORS + LV GRAM/PRESS ([id number]) N/A 11/25/2021 Performed by Savannah Ribeiro MD at [facility] CARDIAC CATH LABS CARPAL TUNNEL RELEASE 2005 COLON SURGERY COLONOSCOPY 2015 COLONOSCOPY DIAGNOSTIC / SCREENING N/A 10/08/2024 Performed by Isma Smith DO at [facility] EP Invasive groin temp, DC ppm w/ lbb - ABT Left 07/17/2024 Performed by Davie Luna MD at [facility] HR (EP) EXTRACTION CATARACT INTRAOCULAR LENS Left 01/20/2021 Performed by Gage Ramírez MD at [facility] EXTRACTION CATARACT INTRAOCULAR LENS Right 01/08/2021 Performed by Gage Ramírez MD at [facility] EYE SURGERY 01/2021 Cataracts Family History Problem Relation Age of Onset Cancer Mother Breast cancer Mother Stroke Father Cancer Sister Breast cancer Sister Uterine cancer Maternal Grandmother Heart disease Brother Kidney disease Brother Social History Socioeconomic History Marital status: Spouse name: Not on file Number of children: Not on file Years of education: Not on file Highest education level: Not on file Occupational History Not on file Tobacco Use Smoking status: Never Smokeless tobacco: Never Vaping Use Vaping status: Never Used Substance and Sexual Activity Alcohol use: Yes Alcohol/week: 1.0 standard drink of alcohol Comment: Alcohol use rare Drug use: Never Sexual activity: Yes Partners: Female control/protection: None Other Topics Concern Caffeine Use Yes Social History Narrative Not on file Social Drivers of Health Financial Resource Strain: Low Risk (12/28/2024) Overall Financial Resource Strain (CARDIA) Difficulty of Paying Living Expenses: Not hard at all Food Insecurity: No Food Insecurity (12/31/2024) Hunger Screening Food Insecurity - Worry: Never True Food Insecurity - Inability: Never True Transportation Needs: No Transportation Needs (12/28/2024) PRAPARE - Transportation Lack of Transportation (Medical): No Lack of Transportation (Non-Medical): No Physical Activity: Sufficiently Active (08/18/2023) Re[facility] from [facility] Exercise Vital Sign Days of Exercise per Week: 3 days Minutes of Exercise per Session: 60 min Stress: No Stress Concern Present (08/18/2023) Received from [facility] [employer] [place] [employer] - Occupational Stress Questionnaire Feeling of Stress : Not at all Social Connections: Socially Integrated (08/18/2023) Received from [facility] Social Connection and Isolation Panel [NHANES] Frequency of Communication with Friends and Family: Once a week Frequency of Social Gatherings with Friends and Family: Three times a week Attends Mandaeism Services: More than 4 times per year Active Member of Clubs or Organizations: Yes Attends Club or Organization Meetings: More than 4 times per year Marital Status: Interpersonal Safety: Not At Risk (07/16/2024) Humiliation, Afraid, Rape, and Kick questionnaire Fear of Current or Ex-Partner: No Emotionally Abused: No Physically Abused: No Sexually Abused: No Housing Instability: Low Risk (12/28/2024) Housing Instability Housing Instability: No Allergies and Current Medications No Known Allergies Current Outpatient Medications on File Prior to Visit Medication Sig acetaminophen (TYLENOL EXTRA STRENGTH) 500 mg tablet Take 1 tablet (500 mg total) by mouth every 6 (six) hours as needed for pain. aspirin 81 mg Take 1 tablet (81 mg total) by mouth in the morning. atorvastatin (LIPITOR) 80 mg tablet Take 1 tablet (80 mg total) by mouth nightly. empagliflozin (JARDIANCE) 10 mg tablet tablet Take 1 tablet (10 mg total) by mouth in the morning. gabapentin (NEURONTIN) 300 mg capsule Take 1 capsule (300 mg total) by mouth in the morning and 1 capsule (300 mg total) before bedtime. isosorbide mononitrate (IMDUR) 30 mg 24 hr tablet Take 1 tablet (30 mg total) by mouth daily for 360 days. metoprolol succinate XL (TOPROL XL) 25 mg 24 hr tablet Take 1 tablet (25 mg total) by mouth in the morning. hhhtbspriice-buyfcnix-amtseq (MULTIVITAMIN 50 PLUS) tablet Take 1 tablet by mouth in the morning. mv-mn/om3/dha/epa/fish/lut/kin (OCUVITE ADULT 50 PLUS ORAL) Take 1 tablet by mouth in the morning. nitroglycerin (NITROSTAT) 0.4 MG SL tablet 1 under the tongue as needed for angina, may repeat q5mins for up three doses No current facility-administered medications on file prior to visit. Labs and Imaging Lab Results Component Value Date WBC 6.7 07/18/2024 HGB 11.7 (L) 07/18/2024 HCT 33.7 (L) 07/18/2024 PLT 136 (L) 07/18/2024 CHOL 112 (L) 09/07/2024 TRIG 88 09/07/2024 HDL 49 09/07/2024 ALT 35 07/25/2024 AST 36 07/25/2024 K 3.8 07/25/2024 CL 99 07/25/2024 CREATININE 1.30 07/25/2024 BUN 27 07/25/2024 CO2 28 07/25/2024 TSH 1.96 07/16/2024 INR 1.0 07/16/2024 HGBA1C 7.0 (H) 07/09/2024 MICROALBUR 0.7 02/14/2024 Colonoscopy Report This order has been auto-finalized for image and report archival in PACs. *For full report details, please reach out to your physician. This image is visible to you in MyChart.* Assessment/Plan: 1. Type 2 diabetes mellitus with diabetic polyneuropathy, without long-term current use of insulin ([facility]) - Comprehensive metabolic panel; Future - Thyroid profile includes TSH FT4; Future - Hemoglobin A1c; Future - Microalbumin - Albumin: Creatinine Urine Ratio; Future 2. Peripheral polyneuropathy 3. Anemia, unspecified type - CBC; Future Type 2 diabetes mellitus with diabetic polyneuropathy ([facility]) Last HbA1c from 07/09/24 was 7.0%. Continue with Jardiance 10 mg daily as prescribed by cardiology for congestive heart failure. Ordered labs including Hemoglobin A1c, thyroid profile, comprehensive metabolic panel and urine microalbumin. Patient may benefit from GLP-1 treatment for diabetes management and weight loss as patient's BMI 33 Peripheral polyneuropathy Prior work up for neuropathy preformed. Patient currently on Gabapentin 300 mg 1 capsule twice daily for neuropathic pain control Anemia History of normocytic anemia from July 2024. Ordered CBC to evaluate degree of anemia Follow up: 3-4 weeks DM follow up - Isma Cohen DO 12/31/24 1:07 PM [facility] Miscellaneous Notes ----- Message from Isma Smith DO sent at 10/12/2024 1:55 PM EDT ----- Please call patient and let him know that he had a polyp which was precancerous tubular adenoma and I recommend follow up in 5 years for repeat colonoscopy. Thanks, Dr. Mas ----- Message ----- From: Lab, Background User Sent: 10/12/2024 1:29 PM EDT To: Isma Smith DO [facility] Telephone encounter Note ----- Message from Isma Smith DO sent at 10/12/2024 1:55 PM EDT ----- Please call patient and let him know that he had a polyp which was precancerous tubular adenoma and I recommend follow up in 5 years for repeat colonoscopy. Thanks, Dr. Mas ----- Message ----- From: Lab, Background User Sent: 10/12/2024 1:29 PM EDT To: Isma Smith DO [facility] 10-02-2024 Nurse Note Preoperative Education Checklist- General Surgery date: 10/08/24 Surgery time: 945a Arrival time: 745a 1. Bring a photo ID and your insurance card with you the day of surgery. You will check in at the main lobby of the [facility]- registration desk is straight ahead as soon as you walk in. Tell them you are here for surgery. 2. If you have a Living Will/Durable Power of Heel Finisher for Health Care that is not on [...] after you have bathed. 5. NO nail dutch/acrylic on at least one finger. If you are having a hand, wrist or foot surgery then all nail dutch and artificial/acrylic nails must be removed from [...] least 8 hours and marijuana for 24 hours prior to arrival for your surgery. 16. Notify your surgeon if you develop any illness before your surgery. 17. If you are staying overnight, please DO NOT BRING your home medications with you. 18. If you have any questions prior to surgery, please call the Preadmission Testing office at [phone], Mon.-Fri. 7 a.m.-3 p.m. Leave a voicemail if needed. Pre-Surgery Instructions: Medication Instructions acetaminophen (TYLENOL EXTRA STRENGTH) 500 mg tablet Continue as prescribed, DO NOT take morning of procedure aspirin 81 mg Per Surgeon's instructions atorvastatin [...] 1.479-0.188- 0.225 gram tablet Per Surgeon's instructions [facility] 10-02-2024 Miscellaneous Notes Preoperative Education Checklist- General Surgery date: 10/08/24 Surgery time: 945a Arrival time: 745a 1. Bring a photo ID and your insurance card with you the day of surgery. You will check in at the main lobby of the [facility]- registration desk is straight ahead as soon as you walk in. Tell them you are here for surgery. 2. If you have a Living Will/Durable Power of Heel Finisher for Health Care that is not on [...] after you have bathed. 5. NO nail dutch/acrylic on at least one finger. If you are having a hand, wrist or foot surgery then all nail dutch and artificial/acrylic nails must be removed from [...] least 8 hours and marijuana for 24 hours prior to arrival for your surgery. 16. Notify your surgeon if you develop any illness before your surgery. 17. If you are staying overnight, please DO NOT BRING your home medications with you. 18. If you have any questions prior to surgery, please call the Preadmission Testing office at [phone], Mon.-Fri. 7 a.m.-3 p.m. Leave a voicemail if needed. Pre-Surgery Instructions: Medication Instructions acetaminophen (TYLENOL EXTRA STRENGTH) 500 mg tablet Continue as prescribed, DO NOT take morning of procedure aspirin 81 mg Per Surgeon's instructions atorvastatin [...] Per Surgeon's instructions documented in this encounter [facility] 09-18-2024 History of Present illness Narrative Images from the original note were not included. Chief Complaint: Colon cancer screening History of Present Illness Morris Belle is a 74 y.o. male who presents to the office for colon cancer screening. His last colonoscopy was in June 2014 at [facility]. He had a bowel resection [...] Cardiac catheterization - CORS + LV GRAM/PRESS (84794) N/A 11/25/2021 Performed by Savannah Ribeiro MD at [facility] CARDIAC CATH LABS CARPAL TUNNEL RELEASE 2005 COLON SURGERY COLONOSCOPY 2015 EP Invasive groin temp, DC ppm w/ lbb - ABT Left 07/17/2024 Performed by Davie Luna MD at [facility] HR (EP) EXTRACTION CATARACT INTRAOCULAR LENS Left 01/20/2021 Performed by Gage Ramírez MD at [facility] EXTRACTION CATARACT INTRAOCULAR LENS Right 01/08/2021 Performed by Gage Ramírez MD at [facility] EYE SURGERY 01/2021 Cataracts No Known Allergies Current Outpatient Medications: acetaminophen (TYLENOL EXTRA STRENGTH) 500 mg tablet, Take 1 tablet (500 mg total) by mouth every 6 (six) hours as needed for pain., Disp: 30 [...] (25 mg total) by mouth in the morning., Disp: 90 tablet, Rfl: 2 nitroglycerin (NITROSTAT) 0.4 MG SL tablet, 1 under the tongue as needed for angina, may repeat q5mins for up three doses, Disp: 25 tablet, Rfl: 11 sod sulf-pot chloride-mag sulf 1.479-0.188- 0.225 gram tablet, Please see instructional sheet given by physicians office., Disp: 24 tablet, Rfl: 0 [...] Resource Strain: Low Risk (08/18/2023) Received from [facility] Overall Financial Resource Strain (CARDIA) Difficulty of Paying Living Expenses: Not hard at all Food Insecurity: No Food Insecurity (08/07/2024) Hunger Screening Food Insecurity - Worry: Never True Food Insecurity - Inability: Never True Transportation Needs: No Transportation Needs (07/16/2024) PRAPARE - Transportation Lack of Transportation (Medical): No Lack of Transportation (Non-Medical): No Physical Activity: Sufficiently Active (08/18/2023) Received from [facility] Exercise Vital Sign Days of Exercise per Week: 3 days Minutes of Exercise per Session: 60 min Stress: No Stress Concern Present (08/18/2023) Received from [facility] [facility] - Occupational Stress Questionnaire Feeling of Stress : Not at all Social Connections: Socially Integrated (08/18/2023) Received from [facility] Social Connection and Isolation Panel [NHANES] Frequency of Communication with Friends and Family: Once a week Frequency of Social Gatherings with Friends and Family: Three times a week Attends Mandaeism Services: More than 4 times per year [...] patient/family/caregiver Referring and communicating with other health intensive care ambulance paramedic Encounter for screening colonoscopy [Z12.11] ROSANNA CAPELLAN, HYPO DIPPER-EXTENSION CLERK [facility] [place] This note was created with the assistance of a speech recognition program. While intending to generate a timely document that accurately reflects the content of the visit, no guarantee can be provided that every grammatical or spelling mistake has been or will be identified or corrected. Thank you for your understanding. MYRNA Lora 09/18/24 1440 documented in this encounter [facility] 08-29-2024 History of Present illness Narrative I agree with the findings in the scanned document. documented in this encounter [facility] 08-28-2024 Miscellaneous Notes [employer] MESSAGE REMINDER SENT TO PT TO REMIND OF PPC APPT. documented in this encounter [facility] 08-28-2024 Telephone encounter Note [employer] MESSAGE REMINDER SENT TO PT TO REMIND OF PPC APPT. [facility] 08-07-2024 History of Present illness Narrative Morris Sagar Yoshi Date of visit: 08/07/2024 Date of : 1950 Age: 74 y.o. 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 30 tablet 0 aspirin 81 mg Take 1 tablet (81 mg total) by mouth in the morning. 2 tablet 0 atorvastatin (LIPITOR) 80 mg tablet Take 1 tablet (80 mg total) by mouth nightly. 90 tablet 50 empagliflozin (JARDIANCE) 10 mg tablet tablet Take 1 tablet (10 mg total) by mouth in the morning. 90 tablet 2 gabapentin (NEURONTIN) 300 mg capsule Take 1 capsule (300 mg total) by mouth in the morning and 1 capsule (300 mg total) before bedtime. metoprolol succinate XL (TOPROL XL) 25 mg 24 hr tablet Take 1 tablet (25 mg total) by mouth in the morning. 90 tablet 2 nitroglycerin (NITROSTAT) 0.4 MG SL tablet 1 under the tongue as needed for angina, may repeat q5mins for up three doses 25 tablet 11 isosorbide mononitrate (IMDUR) 30 mg 24 hr tablet Take 1 tablet (30 mg total) by mouth daily for 360 days. 90 tablet 3 No current facility-administered medications for this visit. Chief Complaint Patient presents with Follow-up wound check s/p implant 07/17 @ [facility] w/VG- pt reqs PMH only - EST PT F/U CATH DONE SCHED W/PT L/S MBO History of Present Illness Morris Belle is a 74-year-old male with a past medical history of chronic CAD with known WING COVERER to LAD, preserved EF, type 2 diabetes mellitus Patient was last seen on 07/17/2023 by , filling the visit monitor results were received inpatient was found to be in complete heart block, was immediately taken to [facility] for EP evaluation, patient was found to be in complete heart block for the last 2 weeks, and underwent pacemaker implant with a dual-chamber pacemaker implant. An echocardiogram was obtained that noted an EF of 65-70% with mild tricuspid valve regurgitation Prior to this patient had a CTA that noted [id number] RCA lesion that was with positive FFR, was discussed that patient cardiac catheterization unless symptoms persisted. Patient presents today states he feels significantly improved almost like they flipped of switch states he 1st noticed his symptoms around May and took a quick downward slough prior to that he was walking and going to the gym without difficulty. Since his device states he feels significantly improved no complaints of chest pain dyspnea on exertion he has been walking, going to the gym and using a stunt woman without difficulty, occasional lightheadedness however no syncope. No complaints of heart palpitations overall feels well. Past Medical History: Diagnosis Date Abscess Cataract Chronic pain disorder Colon polyp 2003 Dyslipidemia Edema LE Hoarseness Hypoparathyroidism Joint pain Neuropathy Neuropathy estela feet Obesity PAD (peripheral artery disease) Peripheral polyneuropathy Sinus arrhythmia 06/26/2024 Tailor's bunion Visual impairment No data recorded No data recorded No data recorded Past Surgical History: Procedure Laterality Date ACHILLES TENDON REPAIR BOWEL RESECTION 2003 large colon resection Cardiac catheterization - CORS + LV GRAM/PRESS (27505) N/A 11/25/2021 Performed by Savannah Ribeiro MD at [facility] CARDIAC CATH LABS CARPAL TUNNEL RELEASE 2005 COLON SURGERY EP Invasive groin temp, DC ppm w/ lbb - ABT Left 07/17/2024 Performed by Davie Luna MD at [facility] HRC (EP) EXTRACTION CATARACT INTRAOCULAR LENS Left 01/20/2021 Performed by Gage Ramírez MD at [facility] EXTRACTION CATARACT INTRAOCULAR LENS Right 01/08/2021 Performed by Gage Ramírez MD at [facility] Family History Problem Relation Age of [...] Resource Strain: Low Risk (08/18/2023) Received from [facility] Overall Financial Resource Strain (CARDIA) Difficulty of Paying Living Expenses: Not hard at all Food Insecurity: No Food Insecurity (08/07/2024) Hunger Screening Food Insecurity - Worry: Never True Food Insecurity - Inability: Never True Transportation Needs: No Transportation Needs (07/16/2024) PRAPARE - Transportation Lack of Transportation (Medical): No Lack of Transportation (Non-Medical): No Physical Activity: Sufficiently Active (08/18/2023) Received from [facility] Exercise Vital Sign Days of Exercise per Week: 3 days Minutes of Exercise per Session: 60 min Stress: No Stress Concern Present (08/18/2023) Received from [facility] [employer] [place] [employer] - Occupational Stress Questionnaire Feeling of Stress : Not at all Social Connections: Socially Integrated (08/18/2023) Received from [facility] Social Connection and Isolation Panel [NHANES] Frequency of Communication with Friends and Family: Once a week Frequency of Social Gatherings with Friends and Family: Three times a week Attends Mandaeism Services: More than 4 times per year [...] Risk (07/16/2024) Housing Instability Housing Instability: No Review of Systems Review of Systems Constitutional: Negative. HENT: Negative. Eyes: Negative. Cardiovascular: Negative. Respiratory: Positive for cough. Endocrine: Negative. Hematologic/Lymphatic: Negative. Skin: Negative. Musculoskeletal: Negative. Gastrointestinal: Negative. Genitourinary: Negative. Neurological: Positive for numbness. Psychiatric/Behavioral: Negative. Allergic/Immunologic: Positive for environmental allergies. Vascular: Negative. CARDIOVASCULAR: Please review HPI. Physical Examination General appearance: Alert, oriented and cooperative. In no acute distress. Skin: Warm and dry to touch. Head: Normocephalic, without obvious abnormality, atraumatic. Ears, Nose, Mouth, Throat: Throat clear without erythema or exudate. Dentition intact. Eyes: Conjunctivae unremarkable, EOM intact. Neck: No JVD Respiratory: Clear to auscultation bilaterally, no use of accessory muscles. Cardiovascular: RRR with normal S1 and S2 with no murmurs. Gastrointestinal: Soft, non-tender Musculoskeletal: No peripheral edema. Neurologic: Oriented to time, person and place, affect appropriate. No focal/major motor defects noted. Psychiatric: Appropriate mood, memory and judgement. VITAL SIGNS: BP 126/88 Pulse 84 Ht 170.2 cm (5' 7 ) Wt 90.3 kg (199 lb) SpO2 97% BMI 31.17 kg/m Orders Placed or Reconciled This Encounter Medications isosorbide mononitrate (IMDUR) 30 mg 24 hr tablet Sig: Take 1 tablet (30 mg total) by mouth daily for 360 days. Dispense: 90 tablet Refill: 3 Medications Discontinued During This Encounter Medication Reason isosorbide mononitrate (IMDUR) 30 mg 24 hr tablet Reorder IMPRESSIONS/PLAN 1. Coronary artery disease of [place] artery of [place] heart with stable angina pectoris -abnormal CTA of the coronaries with concern for obstructive RCA disease, known WING COVERER LAD filled via collaterals -originally planned for left heart catheterization however given he has no symptoms with the addition of his PPM will hold off on this -continue aspirin -anginal symptom was previously sharp chest pain 2. Complete heart block (CMS-HCC) -S/p ABT dual chamber PPM with on 07/17/2024 -wound site examined and images uploaded into the media tab, no hematoma noted -scheduled for in-person device check 08/29/2024 -continue with remote monitoring 3. Hyperlipidemia -total cholesterol 128, HDL 47, LDL 53, triglycerides 141 -continue atorvastatin 80 mg, due for yearly lipid here 4. Hypertension 5. Type 2 diabetes mellitus 6. PAD previously evaluated by vascular 7. Acute heart failure with preserved LV function, in the setting of complete heart block -admission weight was 211, current weight 199 euvolemic on physical exam no other heart failure symptoms -I asked him to monitor his weight moving forward as may require occasional diuretics Patient is stable from a cardiovascular standpoint overall he is feeling well, seen with Dr. Vanessa in the office. TODAYS ORDERS Orders Placed This Encounter Procedures Lipid panel FOLLOW UP Return in about 6 months (around 02/07/2025). PCP: TARAS WRIGHT MD Referring Physician: Taras Wright MD [address] [place] [address] Delmar Aranda PA-C 08/07/24 0919 documented in this encounter [facility] 08-07-2024 Instructions Delmar Aranda PA-C - 08/07/2024 8:30 AM EDT Check your weight every day and write it down in your weight log. Bring your weight log to your next appointment. Make sure your intake of sodium is less than 2000 milligrams (mg) per day. Take all your medications every day as indicated on the prescription label. Call our office if your weight increases by more than 2 pounds overnight or more than 4 pounds in a week. Call our office if you notice worsening shortness of breath, bloating or swelling. Also call if you feel weak, dizzy or unusually fatigued. Record blood pressure and heart rate 3 times per week. Call if systolic (top) number is consistently greater than 140 or less than 100 or diastolic (bottom) number is consistently greater than 90. Call if heart rate is consistently greater than 110 or less than 50. Continue current medications Follow up with General cardiology in 6 months documented in this encounter [facility] 07-23-2024 Miscellaneous Notes Images from the original note were not included. Patient calls into office today. States he was seen at [facility]. He had PPM placed due to Complete Heart Block. Patient is currently scheduled for heart cath 07/30/24 due to abn CTA. Per RDG discharge note on 07/18: Patient states currently no symptoms, feels really well and was able to walk around the block yesterday with no SOB or symptoms. Patient has Echo scheduled for 08/01/24 and f/u with KM on 08/07/24 and Device Check on 08/29/24. Patient would like to consider canceling cath for now and review at follow ups. I agree with RDG , I think all his symptoms were due to complete heart block that was not picked up prior to the coronary CTA, unless he can be seen prior to his cath , this can be cancelled , have him follow-up in the office to re-evaluate his symptoms if asymptomatic then no need for catheterization Cath RN aware - case removed from snapboard and placed back in depot until f/u on 08/07/24. Left message for patient via phone and mychart PC from patient. Explained that cath is cancelled. He states understanding. documented in this encounter [facility] [employer] 07-23-2024 Telephone encounter Note Images from the original note were not included. Patient calls into office today. States he was seen at [facility]. He had PPM placed due to Complete Heart Block. Patient is currently scheduled for heart cath 07/30/24 due to abn CTA. Per RDG discharge note on 07/18: Patient states currently no symptoms, feels really well and was able to walk around the block yesterday with no SOB or symptoms. Patient has Echo scheduled for 08/01/24 and f/u with KM on 08/07/24 and Device Check on 08/29/24. Patient would like to consider canceling cath for now and review at follow ups. [facility] Tele[facility] encounter Note I agree with RDG , I think all his symptoms were due to complete heart block that was not picked up prior to the coronary CTA, unless he can be seen prior to his cath , this can be cancelled , have him follow-up in the office to re-evaluate his symptoms if asymptomatic then no need for catheterization [employer] Work Phone: 07-23-2024 Telephone encounter Note Cath RN aware - case removed from snapboard and placed back in depot until f/u on 08/07/24. [employer] 07-23-2024 Telephone encounter Note Left message for patient via phone and mychart [facility] 07-23-2024 Telephone encounter Note PC from patient. Explained that cath is cancelled. He states understanding. [facility] 07-20-2024 History of Present illness Narrative Patient called into office requesting Jardiance 10mg samples. Four boxes set aside for p/u; sample log updated. documented in this encounter [facility] 07-18-2024 Hospital Discharge instructions Estuardo Higginbotham MD - 07/18/2024 1:34 PM EDT INTERNAL MEDICINE DISCHARGE INSTRUCTIONS: You were hospitalized for Complete heart block - Meds Take meds as prescibed and consider lazix orally till repeating the labs and Follow up with primary film developing machine operator Please continue taking your other medications as prescribed - Diet & Activity - We recommend your diet be Adult diet Regular Texture; No Added Salt (3-4 gm Sodium) Adult diet Avoid intense physical activity until evaluated by your primary care provider. - Follow Ups - Please follow up with the following specialists when you leave: Follow up with Primary Cardiology Provider within 1-2 weeks - Emergencies - If you experience new or worsening symptoms, including chest pain or shortness of breath, please call 911 or return to the emergency department immediately. documented in this encounter [facility] 07-18-2024 Hospital course Narrative The patient was admitted after having workup as an outpatient for exercise intolerance and shortness of breath. He was noted to be in complete heart block on a Holter monitor. He was subsequently set in and underwent dual-chamber implantation of a pacemaker 07/17/2024 He also had an outpatient workup for a coronary CTA revealing moderate to severe RCA disease He felt improved after the pacemaker was in ambulating around. He also had evidence of increased filling pressures and received a few doses of IV diuretics We will be discharged on oral diuretics He had some edema in his amlodipine was discontinued as was felt to be likely contributing BP 144/72 Pulse 64 Temp (!) 35.7 C (96.3 F) (Axillary) Comment: warm blankets provided Resp 19 Ht 170.2 cm (5' 7 ) Wt 96.1 kg (211 lb 13.8 oz) SpO2 96% BMI 33.18 kg/m RRR CTAB No edema Dc time 35 min Discharge diagnoses 1. Exercise intolerance and shortness of breath over last few months 2. Complete heart block status post dual-chamber permanent pacemaker 07/17/2024 [facility] 3. Coronary artery disease, occluded apical LAD chronically, moderate to severe RCA lesion on CTA with positive CTA FFR 4. Primary hypertension 5. acute heart failure with preserved LV function, elevated BNP in setting of recent complete heart block 6. Moravian status The heart failure may have been driven by AV dissociation in the complete heart block that has been intermittent more recently although it is possible there is a chronic component of this He felt improved after diuretics and pacemaker implantation and a going to discharge him on a low-dose loop diuretic and have him get a follow-up basic metabolic panel and BNP in a week I do not know whether he will require long-term diuretics I would not pursue cath unless refractory symptoms when euvolemic with PPM in place and have high threshold to consider for cath for stable symptoms documented in this encounter [employer] 07-18-2024 History of Present illness Narrative Images from the original note were not included. [facility] Card[facility] - Electrophysiology [address], [place] [address] PROGRESS NOTE SUBJECTIVE Mr. Belle sitting up in chair. Alert and oriented. Incisional discomfort post pacemaker REVIEW OF SYSTEMS ROS no change from admission H&P . OBJECTIVE VITAL SIGNS BP 155/83 Pulse 63 Temp (!) 35.7 C (96.3 F) (Axillary) Comment: warm blankets provided Resp 18 Ht 170.2 cm (5' 7 ) Wt 96.1 kg (211 lb 13.8 oz) SpO2 96% BMI 33.18 kg/m O2 Device: Nasal cannula Pulse Ox: SpO2 Av.6 % Min: 90 % Max: 98 % Supplemental O2: O2 Flow Rate (L/min): 2 L/min Admit Weight Weight: 98.4 kg (216 lb 14.9 oz) Last 3 Weights Last 3 Weight Readings 07/16/24 1725 07/17/24 0632 07/18/24 0715 Weight: 98.4 kg (216 lb 14.9 oz) 99 kg (218 lb 4.1 oz) 96.1 kg (211 lb 13.8 oz) Body mass index is 33.18 kg/m . INTAKE/OUTPUT I/O last 3 completed shifts: In: - Out: 850 [Urine:850] Intake/Output Summary (Last 24 hours) at 07/18/2024 1009 Last data filed at 07/18/2024 0719 Gross per 24 hour Intake 324.74 ml Output 600 ml Net -275.26 ml PHYSICAL EXAM General appearance: awake, alert, oriented, moves all extremities Lungs: no rhonchi, no wheezes, no rales Heart: S1-S2 Abdomen: positive bowel sounds, no bruits, no masses Extremities: warm and dry, no cyanosis, no clubbing LABS Results from last 7 days Lab Units 07/18/24 0300 07/17/24 0250 07/16/24 1550 WBC X10E9/L 6.7 9.6 8.0 HEMOGLOBIN g/dL 11.7* 11.9* 12.9* HEMATOCRIT % 33.7* 35.1* 37.8* MCV fL 90 91 90 PLATELETS X10E9/L 136* 132* 136* Results from last 7 days Lab Units 07/18/24 0300 07/17/24 0250 07/16/24 1940 07/16/24 1846 07/16/24 1550 SODIUM mmol/L 143 144 -- -- 142 POTASSIUM mmol/L 3.3* 3.7 3.7 -- 3.8 CHLORIDE mmol/L 104 107 -- -- 106 CO2 mmol/L 27 25 -- -- 26 BUN mg/dL 17 15 -- -- 14 CREATININE mg/dL 1.12 1.28 -- -- 1.44* CALCIUM mg/dL 7.5* 7.7* -- -- 8.4* PHOSPHORUS mg/dL -- -- -- 4.2 -- MAGNESIUM mg/dL 2.1 1.9 -- 2.0 1.9 Results from last 7 days Lab Units 07/16/24 1550 PROTIME sec 11.8 INR 1.0 Results from last 7 days Lab Units 07/18/24 0300 07/17/24 0250 07/16/24 1846 MAGNESIUM mg/dL 2.1 1.9 2.0 Results from last 7 days Lab Units 07/18/24 0300 07/16/24 1550 BNP pg/mL 213* 790* Lab Results Component Value Date CHOL 128 (L) 08/19/2023 TRIG 141 08/19/2023 HDL 47 08/19/2023 CURRENT MEDICATIONS aspirin, 81 mg, oral, Daily atorvastatin, 40 mg, oral, Nightly ceFAZolin (ANCEF) IV, 2,000 mg, intravenous, Q8H fentaNYL, 75 mcg, intravenous, Once iron sucrose, 200 mg, intravenous, Daily isosorbide mononitrate, 30 mg, oral, Daily metoprolol succinate XL, 25 mg, oral, Daily midazolam, 1 mg, intravenous, Once CONTINUOUS INFUSIONS sodium chloride 0.9 %, 20 mL/hr, Last Rate: Stopped (07/17/24 1800) CV HISTORY: ECHO: Echo complete W/ contrast Result Date: 07/16/2024 Left Ventricle: Left ventricle appears normal in [...] jet to assess right ventricular systolic pressure. STRESS: No results found. HOLTER: Holter monitor 24-48 hour Result Date: 07/16/2024 Primary rhythm was Complete AV block (3rd degree). Average heart rate was 38 bpm, Minimum heart rate was 36 bpm, Max heart rate was 42 bpm PVC(s): [place] was 0.19 %, 207 total PVC(s), 2 disparate morphologies Patient recorded 7 event(s) during the monitoring period and symptoms of dizziness, chest pain, shortness of breath, lightheadedness, all correlated with complete heart block. Patient called and instructed to go immediately to [facility] ER for pacemaker TELEMETRY: AV paced 80-90 ASSESSMENT Symptomatic complete heart block s/p Flores dual-chamber pacemaker 07/17/2024. Device check with appropriate pacing parameters X-ray without evidence pneumothorax Aquacel dressing intact. No hematoma. CAD with prior known WING COVERER LAD, moderate RSA stenosis Positive CTA FFR On Imdur Hypertension. Previously on low-dose amlodipine and Toprol. Lower extremity swelling. Amlodipine discontinued Toprol restarted Hyperlipidemia. Lipitor 5. Religion PLAN Pacemaker functioning well. He has received p.r.n. Tylenol for discomfort. Discuss protocol arm restrictions and incisional care after pacemaker implant. Will arrange for outpatient follow-up. Will update attending. Pending discharge [facility] MYRNA Angela 07/18/24 1014 Cosigned by Davie Luna MD at 07/18/2024 7:16 PM EDT DAILY PROGRESS NOTE IMS-3 This is a progress note for Morris Belle, a 74 y.o. who has been admitted for 1 midnights DATE OF ADMISSION 07/16/2024 3:38 PM CC: Chief Complaint Patient presents with Slow Heart Rate Medical Problem HOSPITAL COURSE Morris Belle is a 74-year-old male with a past medical history of coronary artery disease, including a history of apical LAD WING COVERER, hyperlipidemia, and hypertension. He presented with worsening exertional shortness of breath and chest discomfort, and palpitation. He reports intermittent lightheadedness and near-syncope but denies syncopal episodes, paroxysmal nocturnal dyspnea (PND), or orthopnea. His symptoms have progressively worsened over the last few months, with a notable decline in his exercise capacity, as he can no longer complete more than 14 minutes on the treadmill, compared to 30 minutes previously. He went to his film developing machine operator last week and put him on holter for 2 days, then he came today again to follow up, at 2 pm they called him and given him interpretation of Holter which showed complete heart block 12-lead EKG performed in the ER on 07/09/2024 revealed sinus rhythm with a complete AV block and junctional escape rhythm, with a heart rate in the 30s to 40s, though hemodynamically stable. His last echocardiogram from 2021 showed mild concentric LVH, an EF of 50-55%, and elevated right ventricular systolic pressure, indicating moderate to severe pulmonary hypertension. His coronary CTA revealed a distal LAD WING COVERER and moderate stenosis in the RCA with high likelihood of lesion-specific ischemia. He had chest discomfort and an abnormal stress test in 2021, which led to his left heart catheterization and showed apical LAD WING COVERER treated medically without any intervention. The patient is currently on low-dose metoprolol. EKG showed Complete Heart block, right side deviation and prolonged QTC. Consulted EP team Dr. Luna. Recommended proceeding with a pacemaker implant in the morning due to his complete heart block. Once the pacemaker is in place and he recovers, a coronary angiogram can be done as an outpatient, as there is no evidence of acute coronary syndrome. To stop Beta-kiko , but aspirin and statin therapy will continue. And discontinue Amlodipine secondary to new onset of Lower limb edema. Subjective SUBJECTIVE The patient was seen and examined at bedside this morning. NAD. No acute overnight events. They are afebrile and hemodynamically stable and are tolerating their diet well. All the night HR is around 40s. .The patient does not report any headaches, chest pain, shortness of breath, nausea, vomiting, diarrhea, or hematuria. Objective OBJECTIVE Vital Signs Temp: [36.4 C (97.5 F)-37.1 C (98.7 F)] 36.4 C (97.5 F) Pulse: [41-48] 45 Resp: [16-30] 21 BP: (106-175)/(50-129) 118/107 SpO2: [91 %-98 %] 97 % O2 Device: Nasal cannula O2 Flow Rate (L/min): [2 L/min] 2 L/min Estimated body mass index is 34.18 kg/m as calculated from the following: Height as of this encounter: 170.2 cm (5' 7 ). Weight as of this encounter: 99 kg (218 lb 4.1 oz). Input/Output: Intake/Output Summary (Last 24 hours) at 07/17/2024 0777 Last data filed at 07/17/2024 0438 Gross per 24 hour Intake -- Output 450 ml Net -450 ml Physical Exam General appearance: Alert, oriented and cooperative. In [...] defects noted. Psychiatric: Appropriate mood, memory and judgement Labs Results from last 7 days Lab Units 07/17/24 0250 07/16/24 1550 07/16/24 0843 WBC X10E9/L 9.6 8.0 8.4 HEMOGLOBIN g/dL 11.9* 12.9* 12.5* HEMATOCRIT % 35.1* 37.8* 37.7* PLATELETS X10E9/L 132* 136* 140* Results from last 7 days Lab Units 07/16/24 1550 APTT sec 27 INR 1.0 Results from last 7 days Lab Units 07/17/24 0250 07/16/24 1940 07/16/24 1846 07/16/24 1550 07/16/24 0843 SODIUM mmol/L 144 -- -- 142 141 POTASSIUM mmol/L 3.7 3.7 -- 3.8 3.6 CHLORIDE mmol/L 107 -- -- 106 105 CO2 mmol/L 25 -- -- 26 27 BUN mg/dL 15 -- -- 14 14 CREATININE mg/dL 1.28 -- -- 1.44* 1.39* CALCIUM mg/dL 7.7* -- -- 8.4* 8.4* PHOSPHORUS mg/dL -- -- 4.2 -- -- MAGNESIUM mg/dL 1.9 -- 2.0 1.9 -- Results from last 7 days Lab Units 07/17/24 0250 07/16/24 1550 ALBUMIN g/dL 3.7 4.2 TOTAL PROTEIN g/dL 6.4 6.8 ALT U/L 48* 61* AST U/L 31 42* ALK PHOS U/L 50 53 Results from last 7 days Lab Units 07/17/24 0250 07/16/24 1738 07/16/24 1550 BEDSIDE GLUCOSE mg/dL -- 157* -- GLUCOSE mg/dL 108* -- 189* Lab Results Component Value Date HGBA1C 7.0 (H) 07/09/2024 Results from last 7 days Lab Units 07/16/24 1550 BNP pg/mL 790* Invalid input(s): ABGOXYGENSOUE Results from last 7 days Lab Units 07/16/24 1940 LACTIC ACID mmol/L 1.2 No results found for: WBCU , SPECIFICGRA , LEUKOCYTE , NITRITEN , PHNUR , PROTEINNUR , KETONESNUR , UROBILINOGEN , BLOODHGBNU Imaging Echo complete W/ contrast Result Date: 07/16/2024 Left Ventricle: Left ventricle appears normal in [...] jet to assess right ventricular systolic pressure. Cultures Microbiology Results No results found for the last 168 hours. HOSPITAL MEDICATIONS: Scheduled: aspirin, 81 mg, oral, Daily atorvastatin, 40 mg, oral, Nightly fentaNYL, 75 mcg, intravenous, Once heparin (porcine), 5,000 Units, subcutaneous, Q12H TENISHA isosorbide mononitrate, 30 mg, oral, Daily midazolam, 1 mg, intravenous, Once Infusions: dextrose 5 % in water, 100 mL/hr sodium chloride 0.9 %, 10 mL/hr sodium chloride 0.9 %, 10 mL/hr sodium chloride 0.9 %, 10 mL/hr As Needed: calcium gluconate OR calcium gluconate OR calcium gluconate dextrose dextrose 5 % in water dextrose 50 % in water (D50W) glucagon (human recombinant) magnesium sulfate OR magnesium sulfate potassium chloride OR potassium chloride potassium chloride in water OR potassium chloride in water sodium phosphate IV OR sodium phosphate IV - central line OR sod phos di, mono-K phos mono sodium chloride 0.9 % sodium chloride 0.9 % sodium chloride 0.9 % ALLERGIES: No Known Allergies ASSESMENT AND PLAN Morris Belle is a 74-year-old male with a history of coronary artery disease, apical LAD WING COVERER, hyperlipidemia, and hypertension, presenting with worsening exertional shortness of breath, chest discomfort, and palpitations. He was found to have complete heart block on a Holter monitor and EKG. His coronary CTA showed a distal LAD WING COVERER and moderate RCA stenosis, while his echocardiogram from 2021 revealed mild LVH and pulmonary hypertension. He is scheduled for a pacemaker implant, after which a coronary angiogram will be performed. Beta-blockers will be stopped, but aspirin and statin therapy will continue, and amlodipine will be discontinued due to lower extremity edema. Reviewed the rhythm strips from that test which showed complete heart block. Patient has been in complete heart block for last 2 weeks. patient was on low-dose metoprolol Assessment: 1. Complete AV block. 2. Coronary artery disease, chronic LAD WING COVERER, moderate RCA stenosis with high likelihood of ischemia based on CT- FFR 3. Hypertension 4. Hyperlipidemia Plan: - EP consulted and recommended to stop Beta-blockers & Amlodipine ( lower limbe edema) - will proceed with a pacemaker implant today - continue aspirin and statin therapy. - Follolw echocardiogram. - once the patient recovered from pacemaker implant, coronary angiogram can be performed as outpatient. No evidence of acute coronary syndrome during this visit. DVT prophylaxis: heparin Diet: regular Fluids: None Disposition: TBD Code Status: Full code This note was created with the assistance of a speech-recognition program. Every effort was made to ensure accuracy; however, inadvertent computerized can conveyor feeder errors may be present. Discussed with Dr. Sindy Sutherland Cardiology Attending Estuardo Higginbotham MD - PGY-1 Internal Medicine Resident The patient was seen and discussed with attending Dr. Cesar Harper Cardiology attending This note was created with the assistance of a speech-recognition program. Every effort was made to ensure accuracy; however, inadvertent computerized can conveyor feeder errors may be present. Cosigned by Cesar Harper MD at 07/17/2024 2:06 PM EDT Associated attestation - Cesar Harper MD - 07/17/2024 2:06 PM EDT Images from the original note were not included. Progress Note Patient Name: Morris Belle : 1950 07/17/2024 2:00 PM I, Cesar Harper MD, personally performed the face to face diagnostic evaluation on this patient. My findings are as follows below. If there is no associated EVERARDO/resident/fellow note, I evaluated the patient independently. SUBJECTIVE Mr. Belle has no chest pain, shortness of breath, orthopnea or palpitations. MEDS Current Meds: aspirin, 81 mg, oral, Daily atorvastatin, 40 mg, oral, Nightly ceFAZolin (ANCEF) IV, 2,000 mg, intravenous, Q8H fentaNYL, 75 mcg, intravenous, Once heparin (porcine), 5,000 Units, subcutaneous, Q12H TENISHA isosorbide mononitrate, 30 mg, oral, Daily midazolam, 1 mg, intravenous, Once Continuous Infusions: dextrose 5 % in water, 100 mL/hr dextrose 5 % in water, 100 mL/hr sodium chloride 0.9 %, 10 mL/hr sodium chloride 0.9 %, 10 mL/hr sodium chloride 0.9 %, 10 mL/hr sodium chloride 0.9 %, 20 mL/hr, Last Rate: 20 mL/hr (07/17/24 1017) OBJECTIVE Vital signs: BP 161/78 Pulse 70 Temp 36.6 C (97.8 F) (Oral) Resp (!) 26 Ht 170.2 cm (5' 7 ) Wt 99 kg (218 lb 4.1 oz) SpO2 92% BMI 34.18 kg/m Admit Weight: 98.4 kg (216 lb 14.9 oz) Last 3 weights: Wt Readings from Last 3 Encounters: 07/17/24 99 kg (218 lb 4.1 oz) 07/16/24 96.6 kg (213 lb) 06/26/24 92.5 kg (204 lb) BMI: Body mass index is 34.18 kg/m . Input/Output: Intake/Output Summary (Last 24 hours) at 07/17/2024 1400 Last data filed at 07/17/2024 0438 Gross per 24 hour Intake -- Output 450 ml Net -450 ml PHYSICAL EXAM Constiutional: In no acute distress. Cardiovascular: RRR, normal S1S2 Respiratory: Clear to Auscultation bilaterally Gastointestonal: Soft, NABS Extremities: no edema Psychiatric: Appropriate mood and affect. Awake, alert and oriented x 3. LABS CBC: Results from last 7 days Lab Units 07/17/24 0250 07/16/24 1550 07/16/24 0843 WBC X10E9/L 9.6 8.0 8.4 HEMOGLOBIN g/dL 11.9* 12.9* 12.5* HEMATOCRIT % 35.1* 37.8* 37.7* MCV fL 91 90 91 PLATELETS X10E9/L 132* 136* 140* BMP: Results from last 7 days Lab Units 07/17/24 0250 07/16/24 1940 07/16/24 1550 07/16/24 0843 POTASSIUM mmol/L 3.7 3.7 3.8 3.6 CHLORIDE mmol/L 107 -- 106 105 CO2 mmol/L 25 -- 26 27 BUN mg/dL 15 -- 14 14 CREATININE mg/dL 1.28 -- 1.44* 1.39* PT/INR: Results from last 7 days Lab Units 07/16/24 1550 PROTIME sec 11.8 INR 1.0 MAG: Results from last 7 days Lab Units 07/17/24 0250 07/16/24 1846 07/16/24 1550 MAGNESIUM mg/dL 1.9 2.0 1.9 Troponin I ASSESSMENT 1. Exercise intolerance and shortness of breath over last few months 2. Complete heart block status post dual-chamber permanent pacemaker 07/17/2024 [facility] 3. Coronary artery disease, occluded apical LAD chronically, moderate to severe RCA lesion on CTA with positive CTA FFR 4. Primary hypertension 5. Possible component of heart failure with preserved LV function, elevated BNP in setting of recent complete heart block 6. Moravian status PLAN Would give a dose or 2 of loop diuretic Can discontinue amlodipine, possibly may have contributed to edema Would continue beta-kiko given possible significant RCA disease Would just assess clinically as an outpatient for symptoms before considering catheterization. No urgency to consider catheterization. Regardless, this would be stable CAD and symptoms may be explained by heart block or chronotropic incompetence as an outpatient. If has significant symptoms as an outpatient with a pacemaker in place and appropriate rate response can evaluate for catheterization at a later time documented in this encounter [facility] 07-18-2024 Progress note Formatting of t his note is different from the original. Occupational Therapy Evaluation Discharge Recommendations OT Recommendations : Home Home Recommendations: Intermittent caregiver support for: (for heavy home tasks) Therapy Plan Need for skilled Occupational Therapy to address deficits in ADL independence and functional mobility due to a status decline resulting from admission on 07/16/24 due to changes on monitor with CHB. 07/17/24 dual chamber pacer placed with L bundle branch pacing leads Pt up walking in cochran with no ADL 6 Clicks: Daily Activity Putting on and taking off regular lower body clothing?: A little Bathing (including washing, rinsing, drying)?: A little Toileting, which includes using toilet, bedpan or urinal?: A little Putting on and taking off regular upper body clothing?: None Taking care of personal grooming such as brushing teeth?: None Eating meals?: None Scoring Daily Activity Raw Score: 21 CMS G Code Modifier: CJ Past Medical History: Diagnosis Date Abscess Cataract Chronic pain disorder Colon polyp 2003 Dyslipidemia Edema LE Hoarseness Hypoparathyroidism Joint pain Neuropathy Neuropathy estela feet Obesity PAD (peripheral artery disease) Peripheral polyneuropathy Sinus arrhythmia 06/26/2024 Tailor's bunion Visual impairment Past Surgical History: Procedure Laterality Date ACHILLES TENDON REPAIR BOWEL RESECTION 2004 large colon resection Cardiac catheterization - CORS + LV GRAM/PRESS (41893) N/A 11/25/2021 Performed by Savannah Ribeiro MD at [facility] CARDIAC CATH LABS CARPAL TUNNEL RELEASE 2006 COLON SURGERY EXTRACTION CATARACT INTRAOCULAR LENS Left 01/20/2021 Performed by Gage Ramírez MD at [facility] EXTRACTION CATARACT INTRAOCULAR LENS Right 01/08/2021 Performed by Gage Ramírez MD at [facility] Chief Complaint Patient presents with Slow Heart Rate Medical Problem No Current Skilled OT: Safe to return home Assessment Patient Assessment Patient Response to Treatment: Tolerated evaluation without adverse reaction, Discontinue therapy Mood/Affect: Appropriate for circumstances Rehab Prognosis: Good Visit RN Communication: Yes Medical Record Reviewed: Yes OT Type of Visit: Evaluation Precautions Activity: early mobility yes Equipment: gait belt Pacemaker/ICD: Pacemaker (placed 07/18/24) Telemetry/Rn Labor And Delivery: Yes Oxygen Used: room air Other: low fall risk Pain Assessment Pain Assessment: 0-10 Pain Score: 4 Observed Behavior: Calm Pain Location: Incision Pain Intervention(s): Repositioned, Ambulation/increased activity Response to Interventions: Pain unchanged Pain 2 Observed Behavior: Calm Home Living Type of Home: House Home Layout: One level Stairs to Enter: 2-3 Hand Rails: Right Stairs in Home: FF to basement Hand Rails in Home: Left Bathroom Shower/Tub: Tub/shower unit Bathroom Toilet: Standard Bathroom Equipment: Grab bars in shower, Hand-held shower Home Equipment: Cane, Wheelchair-manual Prior Function Lives With: Spouse, Son (spouse able to assist, son has CP and has assist with walking) Level of Mobility: Independent with ADLs and functional transfers or gait Homemaking Assistance: Independent ADL / IADL Hand Dominance: Right Eating Assistance: Independent Grooming Assistance: Supervision Bathing/Showering Assistance: Supervision Toilet/Commode Assistance: Supervision UE Dressing Assistance: Supervision LE Dressing Assistance: Supervision Other: education to precautions with ADL tasks, pt reports aware of precautions Home Management - IADL Other: education to precautions with ADL tasks, pt reports aware of precautions Hearing / Speech / Vision Hearing: Within Functional Limits Speech: Within Functional Limits Cognition Overall Cognitive Status: Within Functional Limits Sensation Overall Sensation Status: (BLE neuropathy) Bed Mobility Other: in recliner at start and end of session Transfers Sit to Stand: Standby assist Stand to Sit: Standby assist Other: no AD Gait Gait Assistance: Standby assist Assistive Device: None Gait Distance: 150' Balance Sitting Balance: Static: Good Sitting Balance: Dynamic: Good Standing Balance: Static: Good Standing Balance: Dynamic: Fair RUE Assessment: Within Functional Limits LUE Assessment: (pacemaker precautions) Activity Tolerance Endurance: Tolerates <30 minutes activity WITHOUT vital sign changes Plan Occupational Therapy Care Plan Occupational Therapy Care Plan (Active) There are no active problems. Occupational Therapy Care Plan (Resolved) There are no resolved problems. Principal Problem: Complete heart block (CMS-HCC) [facility] [employer] 07-18-2024 Miscellaneous Notes Occupational Therapy Evaluation Discharge Recommendations OT Recommendations : Home Home Recommendations: Intermittent caregiver support for: (for heavy home tasks) Therapy Plan Need for skilled Occupational Therapy to address deficits in ADL independence and functional mobility due to a status decline resulting from admission on 07/16/24 due to changes on monitor with CHB. 07/17/24 dual chamber pacer placed with L bundle branch pacing leads Pt up walking in [place] with no ADL 6 Clicks: Daily Activity Putting on and taking off regular lower body clothing?: A little Bathing (including washing, rinsing, drying)?: A little Toileting, which includes using toilet, bedpan or urinal?: A little Putting on and taking off regular upper body clothing?: None Taking care of personal grooming such as brushing teeth?: None Eating meals?: None Scoring Daily Activity Raw Score: 21 CMS G Code Modifier: CJ Past Medical History: Diagnosis Date Abscess Cataract Chronic pain disorder Colon polyp 2003 Dyslipidemia Edema LE Hoarseness Hypoparathyroidism Joint pain Neuropathy Neuropathy estela feet Obesity PAD (peripheral artery disease) Peripheral polyneuropathy Sinus arrhythmia 06/26/2024 Tailor's bunion Visual impairment Past Surgical History: Procedure Laterality Date ACHILLES TENDON REPAIR BOWEL RESECTION 2004 large colon resection Cardiac catheterization - CORS + LV GRAM/PRESS (98138) N/A 11/25/2021 Performed by Savannah Ribeiro MD at [facility] CARDIAC CATH LABS CARPAL TUNNEL RELEASE 2006 COLON SURGERY EXTRACTION CATARACT INTRAOCULAR LENS Left 01/20/2021 Performed by Gage Ramírez MD at [facility] EXTRACTION CATARACT INTRAOCULAR LENS Right 01/08/2021 Performed by Gage Ramírez MD at [facility] Chief Complaint Patient presents with Slow Heart Rate Medical Problem No Current Skilled OT: Safe to return home Assessment Patient Assessment Patient Response to Treatment: Tolerated evaluation without adverse reaction, Discontinue therapy Mood/Affect: Appropriate for circumstances Rehab Prognosis: Good Visit RN Communication: Yes Medical Record Reviewed: Yes OT Type of Visit: Evaluation Precautions Activity: early mobility yes Equipment: gait belt Pacemaker/ICD: Pacemaker (placed 07/18/24) Telemetry/Rn Labor And Delivery: Yes Oxygen Used: room air Other: low fall risk Pain Assessment Pain Assessment: 0-10 Pain Score: 4 Observed Behavior: Calm Pain Location: Incision Pain Intervention(s): Repositioned, Ambulation/increased activity Response to Interventions: Pain unchanged Pain 2 Observed Behavior: Calm Home Living Type of Home: House Home Layout: One level Stairs to Enter: 2-3 Hand Rails: Right Stairs in Home: FF to basement Hand Rails in Home: Left Bathroom Shower/Tub: Tub/shower unit Bathroom Toilet: Standard Bathroom Equipment: Grab bars in shower, Hand-held shower Home Equipment: Cane, Wheelchair-manual Prior Function Lives With: Spouse, Son (spouse able to assist, son has CP and has assist with walking) Level of Mobility: Independent with ADLs and functional transfers or gait Homemaking Assistance: Independent ADL / IADL Hand Dominance: Right Eating Assistance: Independent Grooming Assistance: Supervision Bathing/Showering Assistance: Supervision Toilet/Commode Assistance: Supervision UE Dressing Assistance: Supervision LE Dressing Assistance: Supervision Other: education to precautions with ADL tasks, pt reports aware of precautions Home Management - IADL Other: education to precautions with ADL tasks, pt reports aware of precautions Hearing / Speech / Vision Hearing: Within Functional Limits Speech: Within Functional Limits Cognition Overall Cognitive Status: Within Functional Limits Sensation Overall Sensation Status: (BLE neuropathy) Bed Mobility Other: in recliner at start and end of session Transfers Sit to Stand: Standby assist Stand to Sit: Standby assist Other: no AD Gait Gait Assistance: Standby assist Assistive Device: None Gait Distance: 150' Balance Sitting Balance: Static: Good Sitting Balance: Dynamic: Good Standing Balance: Static: Good Standing Balance: Dynamic: Fair RUE Assessment: Within Functional Limits LUE Assessment: (pacemaker precautions) Activity Tolerance Endurance: Tolerates <30 minutes activity WITHOUT vital sign changes Plan Occupational Therapy Care Plan Occupational Therapy Care Plan (Active) There are no active problems. Occupational Therapy Care Plan (Resolved) There are no resolved problems. Principal Problem: Complete heart block (CMS-HCC) Images from the original note were not included. [facility] Rounded. Patient sitting up in chair. Updated on current Hgb. Patient states he believes he is to be discharged later today. NO BLOOD identifiers in place. Minimization of Patient Blood Loss: Blood conservation techniques are an essential part of Blood Management. Please make use of micro draws, bundle/add on labs when possible and limit phlebotomy to an as needed basis for medical decision making only. Please Notify [facility] if Patient: Actively Bleeding, Requires Urgent Surgery, and Hgb < 11 or Drop by 2 Grams from Baseline Lab Results Component Value Date HGB 11.7 (L) 07/18/2024 IRON 49 (L) 07/18/2024 TIBC 349 07/18/2024 IRONSAT 14 (L) 07/18/2024 FERRITIN 165 07/18/2024 [id number] 07/18/2024 FOLATE 22.0 07/18/2024 Thank you for the opportunity to assist in the care of your patient. Please feel free to contact us with any questions or concerns. [facility] nurses can be reached Tuesday - Tuesday 7 am - 3:30 pm. After hours a voicemail can be left for non-emergent needs, and we will respond on the next business day. For any emergent after hour needs, please page the on-call provider for Blood Management. [facility] [address], [address] [place] [address] Office: [phone] Physical Therapy Evaluation Discharge Recommendations PT Recommendations: Home Home Recommendations: Intermittent caregiver support for: (as needed for heavy home tasks and self care) Pt has h/o LAD WING COVERER. Was placed on monitor 07/09/24 x2 days and noted CHB. Advised to go to ER. HR in 30s. Pt c/o Progressive SOB and lightheadedness. 07/17 Dual Chamber Pacer placed with L bundle branch pacing leads Pt amb without deficit and has / assist. 6 Clicks: Basic Mobility Turning from your back to your side while in a flat bed without using bed rails?: A little Moving from lying on your back to sitting on side of flat bed without using bed rails?: A little Moving to and from bed to a chair (including w/c)?: A little Standing up from a chair using your arms (e.g. w/c or bedside chair)?: A little To walk in hospital room?: A little Climbing 3-5 steps with a railing?: A little Scoring 6 Clicks: Basic Mobility Raw Score: 18 CMS G Code Modifier: CK Past Medical History: Diagnosis Date Abscess Cataract Chronic pain disorder Colon polyp 2003 Dyslipidemia Edema LE Hoarseness Hypoparathyroidism Joint pain Neuropathy Neuropathy estela feet Obesity PAD (peripheral artery disease) Peripheral polyneuropathy Sinus arrhythmia 06/26/2024 Tailor's bunion Visual impairment Past Surgical History: Procedure Laterality Date ACHILLES TENDON REPAIR BOWEL RESECTION 2003 large colon resection Cardiac catheterization - CORS + LV GRAM/PRESS (38613) N/A 11/25/2021 Performed by Savannah Ribeiro MD at [facility] CARDIAC CATH LABS CARPAL TUNNEL RELEASE 2005 COLON SURGERY EXTRACTION CATARACT INTRAOCULAR LENS Left 01/20/2021 Performed by Gage Ramírez MD at [facility] EXTRACTION CATARACT INTRAOCULAR LENS Right 01/08/2021 Performed by Gage Ramírez MD at [facility] Chief Complaint Patient presents with Slow Heart Rate Medical Problem Therapy Plan No need for skilled PT intervention due to level of independence at this time. Therapy signing off with pt aware. No Current Skilled PT: Safe to return home Patient Response to Treatment: Discontinue therapy Assessment Patient Assessment Patient Response to Treatment: Discontinue therapy Mood/Affect: Appropriate for circumstances Rehab Prognosis: Good Visit RN Communication: Yes Medical Record Reviewed: Yes PT Type of Visit: Evaluation Precautions Activity: early mobility yes Equipment: gait belt Pacemaker/ICD: Pacemaker (placed 07/17) Telemetry/Rn Labor And Delivery: Yes Oxygen Used: room air Other: low fall risk Pain Assessment Pain Assessment: 0-10 Pain Score: 4 Observed Behavior: Calm Pain Location: Incision Pain Intervention(s): Repositioned, Ambulation/increased activity Response to Interventions: Pain unchanged Pain 2 Observed Behavior: Calm Home Living Type of Home: House Home Layout: One level, Work area in basement Stairs to Enter: 2-3 Hand Rails: Right Stairs in Home: flight Hand Rails in Home: Left Bathroom Shower/Tub: Tub/shower unit Bathroom Toilet: Standard Bathroom Equipment: Grab bars in shower, Hand-held shower Bathroom Accessibility: Accessible Home Equipment: Cane, Wheelchair-manual Prior Function Lives With: Spouse, Son (Son has CP and requires pt assist for ambulation. Spouse retired and able to assist) Level of Mobility: Independent with ADLs and functional transfers or gait Homemaking Assistance: Independent Vocational: Retired Other: denies falls. Very active RN OCCUPATIONAL Hearing / Speech / Vision Hearing: Within Functional Limits Speech: Within Functional Limits Cognition Overall Cognitive Status: Within Functional Limits Sensation Overall Sensation Status: Consistent with premorbid status (neuropathy feet) Bed Mobility Other: in chair on arrival Transfers Sit to Stand: Standby assist Stand to Sit: Standby assist Other: No AD used. Gait Base of Support: Within Functional Limits Pattern: Decreased rajeev Gait Assistance: Standby assist Assistive Device: None Gait Distance: 150' Other: Steady throughout without LOB or change of vitals Balance Balance Evaluation: Within Functional Limits Sitting Balance: Static: Good Sitting Balance: Dynamic: Good Standing Balance: Static: Good Standing Balance: Dynamic: Fair RLE Assessment: Within Functional Limits LLE Assessment: Within Functional Limits Activity Tolerance Endurance: Tolerates <30 minutes activity WITHOUT vital sign changes Plan Physical Therapy Care Plan Physical Therapy Care Plan (Active) There are no active problems. Physical Therapy Care Plan (Resolved) There are no resolved problems. Principal Problem: Complete heart block (CMS-HCC) Problem: Pain Goal: Patient goal is pain score less than 4, able to rest, and participant in treatment plan as appropriate Description: INTERVENTIONS: 1. Encourage patient or legal customer service representative teacher to report early pain and ask for pain medicine when needed 2. Assess pain using appropriate pain scale and include the scale used when documenting 3. Administer analgesics based on type and severity of pain and evaluate response within appropriate time frame 4. Implement non-pharmacological measures as appropriate and evaluate response 5. Consider cultural and social influences on pain and pain management 6. Notify LIP if interventions ineffective or patient reports new pain 7. Monitor vital signs including pulse ox, end-tidal CO2 based on pain intervention 8. Reassess pain per policy 9. Teach patient or legal customer service representative teacher interventions for comforting Outcome: Progressing Note: Evaluation of progress towards goal: pt denies pain at this time. Pt encouraged to notify RN if pain arises. Problem: Safety Goal: Patient will be injury free during hospitalization Description: INTERVENTIONS: 1. Assess patient's risk for falls and implement fall prevention plan of care per policy 2. Provide and maintain a safe environment 3. Proper use of double Identifiers 4. Medication administration using the 5 rights 5. Hand hygiene 6. Specimens are labeled at the bedside 7. Instruct patient/ patient customer service representative teacher about use of safety devices 8. Include patient/ patient customer service representative teacher in decisions related to safety Outcome: Progressing Note: Evaluation of progress towards goal: pt remains free from injury - call light within reach. Pt informed to call out for any needs and to not get out of bed without assistance. Problem: Infection Goal: Absence of infection during hospitalization Description: INTERVENTIONS 1. Assess and monitor for signs and symptoms of infection. 2. Monitor lab/diagnostic results. 3. Monitor all insertion sites i.e., indwelling lines, tubes and drains. 4. Monitor endotracheal (as able) and nasal secretions for changes in amount and color. 5. Administer medications as ordered. 6. Instruct and encourage patient and family to use good hand hygiene technique. 7. Identify and instruct patient/patient customer service representative teacher in use of appropriate isolation precautions for identified infection/symptoms. 8. Provide and discuss with patient/patient customer service representative teacher on educational MDRO sheet. 9. Encourage and monitor nutritional status daily and consult clearance diver if indicated. 10. Implement neutropenic guidelines as needed. Outcome: Progressing Note: Evaluation of progress towards goal: no s/s of infection - wbc 6.7. no swelling around site. Problem: Knowledge Deficit Goal: Patient/patient customer service representative teacher demonstrates understanding of disease process, treatment plan, medications, and discharge instructions Description: INTERVENTIONS 1. Complete learning assessment and assess knowledge base 2. Provide teaching at level of understanding 3. Provide teaching via preferred learning method(s) Outcome: Progressing Note: Evaluation of progress towards goal: pt verbalizes plan of care. Likely discharge home today. Problem: Discharge Planning Goal: Discharge to post-acute care, other facility, or home with appropriate resources Description: Patient's goal is: INTERVENTIONS 1. Conduct assessment to determine patient/family and health care team treatment goals, and need for post-acute services based on payer coverage, community resources, and patient preferences, and barriers to discharge 2. Coordinate with Social work, Care Navigation, and Utilization Review to arrange appropriate level of services according to patient's needs based on patient preference and payer coverage in collaboration with the physician and health care team 3. Address psychosocial, clinical, and financial barriers to discharge as identified in assessment in conjunction with the patient/family and health care team 4. Consult appropriate ancillary services (i.e.. PT/OT/ST, etc) as needed 5. Communicate with and update the patient/family, physician, and health care team regarding progress on the discharge plan 6. Identify discharge learning needs (meds, wound care, etc). 7. Arrange for needed discharge transportation as appropriate Outcome: Progressing Note: Evaluation of progress towards goal: pt lives with spouse. Likely discharge home today, of note - pt requests no blood transfusions. Follows with [facility] care. Problem: Low Risk Fall Score Description: [place] Fall Score of 0 - 24 or indicated by [facility] Assessment Goal: Patient should be free from fall Description: Interventions: 1. [place] to environment 2. Hourly rounds addressing the 4 P's (Pain, Positioning, Possessions, Potty) 3. Clear area of hazards (spills, clutter, electrical cords, unnecessary equipment) 4. Place equipment (bed & TV controls, call light, phone, urinal) within reach 5. Encourage patient to wear glasses and hearing aides as appropriate 6. Maintain bed in lowest position 7. Lock wheels on bed/wheelchair 8. Provide adequate lighting, including night light 9. Assess need for additional bedding, food/fluids, pain med's prior to sleep/routinely 10. Provide gripper slippers or personal non-skid footwear 11. Teach patient and patient customer service representative teacher to maintain environment for safety and engage in all aspects of fall prevention program Outcome: Progressing Note: Evaluation of progress towards goal: pt remains free from falls, non skid socks on and pt encouraged to call for assistance before ambulating. Problem: Cardiovascular - Adult Goal: Maintains optimal cardiac output and hemodynamic stability Description: Patient's goal is: INTERVENTIONS: 1. Monitor vital signs, rhythm, and trends 2. Monitor for bleeding, hypotension and signs of decreased cardiac output 3. Administer ordered vasoactive medications to optimize hemodynamic stability 4. Monitor arterial and/or venous puncture sites for bleeding and/or hematoma 5. Assess quality of pulses, skin color and temperature Outcome: Progressing Note: Evaluation of progress towards goal: pacemaker pacing 1:1, BP stable. Goal: Absence of cardiac dysrhythmias or at baseline Description: INTERVENTIONS: 1. Continuous cardiac monitoring, monitor vital signs, obtain 12 lead EKG as ordered 2. Monitor for therapeutic effect/ side effects and safely 3. Administer antiarrhythmic and heart rate control medications as ordered 3. Initiate emergency measures for life threatening arrhythmias 4. Monitor labs and administer replacement/adjust therapy as ordered Outcome: Progressing Note: Evaluation of progress towards goal: Pacing AV 1:1, device interrogation planned for this morning. Problem: Moderate - High Risk Fall Score Description: [place] Fall Score of =/> 25 or indicated by [facility] Assessment Goal: Patient should be free from fall Description: Interventions: 1. [place] to environment 2. Hourly rounds addressing the 4 P's (Pain, Positioning, Possessions, Potty) 3. Clear area of hazards (spills, clutter, electrical cords, unnecessary equipment) 4. Place equipment (bed & TV controls, call light, phone, urinal) within reach 5. Encourage patient to wear glasses and hearing aides as appropriate 6. Maintain bed in lowest position 7. Lock wheels on bed/wheelchair 8. Provide adequate lighting, including night light 9. Assess need for additional bedding, food/fluids, pain med's prior to sleep/routinely 10. Provide gripper slippers or personal non-skid footwear 11. Teach patient and patient customer service representative teacher to maintain environment for safety and engage in all aspects of fall prevention program 12. Remind patient to call for help before getting out of bed 13. Initiate bed/chair/exit alarms supportive devices as appropriate, (chair wedge, no-skid floor mat, raised edge mattress, hip protectors) 14. Locate patient bed assignment for optimal visualization 15. Evaluate and identify Safe Patient Handling Equipment needs 16. Provide supervision when out of bed or chair 17. Utilize gait belt as needed to assist with ambulation 18. Place adaptive equipment (cane, walker) within reach 19. Request patient customer service representative teacher bring adaptive equipment/mobility aids from home or obtain and provide as needed 20. Consult pharmacy regarding effects of med's affecting mobility, cognition, and alternatives 21. Obtain physician order for PT if risk factors associated with mobility are present 22. Obtain physician order for OT as appropriate 23. Utilize diversional activities 24. Educate patient and patient customer service representative teacher how to maintain a safe environment during visitation times (notify nurse prior to leaving bedside) 25. Consider appropriateness of medical or non-medical data analyst 26. Set up voiding schedule as appropriate (every 2 hours) Outcome: Progressing Note: Evaluation of progress towards goal: pt remains free from falls, non skid socks in place. Pt encouraged to also not move his left arm over head s/p pacer. Problem: Pain Goal: Patient goal is pain score less than 4, able to rest, and participant in treatment plan as appropriate Description: INTERVENTIONS: 1. Encourage patient or legal customer service representative teacher to report early pain and ask for pain medicine when needed 2. Assess pain using appropriate pain scale and include the scale used when documenting 3. Administer analgesics based on type and severity of pain and evaluate response within appropriate time frame 4. Implement non-pharmacological measures as appropriate and evaluate response 5. Consider cultural and social influences on pain and pain management 6. Notify LIP if interventions ineffective or patient reports new pain 7. Monitor vital signs including pulse ox, end-tidal CO2 based on pain intervention 8. Reassess pain per policy 9. Teach patient or legal customer service representative teacher interventions for comforting Outcome: Progressing Note: Evaluation of progress towards goal: patient denies pain at this time, has PRN tylenol available and encouraged to call out with pain Problem: Safety Goal: Patient will be injury free during hospitalization Description: INTERVENTIONS: 1. Assess patient's risk for falls and implement fall prevention plan of care per policy 2. Provide and maintain a safe environment 3. Proper use of double Identifiers 4. Medication administration using the 5 rights 5. Hand hygiene 6. Specimens are labeled at the bedside 7. Instruct patient/ patient customer service representative teacher about use of safety devices 8. Include patient/ patient customer service representative teacher in decisions related to safety Outcome: Progressing Note: Evaluation of progress towards goal: Patient is injury free, hourly rounding in place, safe environment maintained - bed is low and locked, room is free of hazards, call light is within reach Problem: Infection Goal: Absence of infection during hospitalization Description: INTERVENTIONS 1. Assess and monitor for signs and symptoms of infection. 2. Monitor lab/diagnostic results. 3. Monitor all insertion sites i.e., indwelling lines, tubes and drains. 4. Monitor endotracheal (as able) and nasal secretions for changes in amount and color. 5. Administer medications as ordered. 6. Instruct and encourage patient and family to use good hand hygiene technique. 7. Identify and instruct patient/patient customer service representative teacher in use of appropriate isolation precautions for identified infection/symptoms. 8. Provide and discuss with patient/patient customer service representative teacher on educational MDRO sheet. 9. Encourage and monitor nutritional status daily and consult clearance diver if indicated. 10. Implement neutropenic guidelines as needed. Outcome: Progressing Note: Evaluation of progress towards goal: no s/s of infection, prophylactic IV ATBS post PPM Problem: Knowledge Deficit Goal: Patient/patient customer service representative teacher demonstrates understanding of disease process, treatment plan, medications, and discharge instructions Description: INTERVENTIONS 1. Complete learning assessment and assess knowledge base 2. Provide teaching at level of understanding 3. Provide teaching via preferred learning method(s) Outcome: Progressing Note: Evaluation of progress towards goal: pt has verbalized understanding of medications and treatment plan Problem: Discharge Planning Goal: Discharge to post-acute care, other facility, or home with appropriate resources Description: Patient's goal is: INTERVENTIONS 1. Conduct assessment to determine patient/family and health care team treatment goals, and need for post-acute services based on payer coverage, community resources, and patient preferences, and barriers to discharge 2. Coordinate with Social work, Care Navigation, and Utilization Review to arrange appropriate level of services according to patient's needs based on patient preference and payer coverage in collaboration with the physician and health care team 3. Address psychosocial, clinical, and financial barriers to discharge as identified in assessment in conjunction with the patient/family and health care team 4. Consult appropriate ancillary services (i.e.. PT/OT/ST, etc) as needed 5. Communicate with and update the patient/family, physician, and health care team regarding progress on the discharge plan 6. Identify discharge learning needs (meds, wound care, etc). 7. Arrange for needed discharge transportation as appropriate Outcome: Progressing Note: Evaluation of progress towards goal: possible discharge home tomorrow Problem: Low Risk Fall Score Description: Quinteros Fall Score of 0 - 24 or indicated by [facility] Assessment Goal: Patient should be free from fall Description: Interventions: 1. [place] to environment 2. Hourly rounds addressing the 4 P's (Pain, Positioning, Possessions, Potty) 3. Clear area of hazards (spills, clutter, electrical cords, unnecessary equipment) 4. Place equipment (bed & TV controls, call light, phone, urinal) within reach 5. Encourage patient to wear glasses and hearing aides as appropriate 6. Maintain bed in lowest position 7. Lock wheels on bed/wheelchair 8. Provide adequate lighting, including night light 9. Assess need for additional bedding, food/fluids, pain med's prior to sleep/routinely 10. Provide gripper slippers or personal non-skid footwear 11. Teach patient and patient customer service representative teacher to maintain environment for safety and engage in all aspects of fall prevention program Outcome: Progressing Note: Evaluation of progress towards goal: Patient is free of falls, hourly rounding and fall precautions are in place Problem: Cardiovascular - Adult Goal: Maintains optimal cardiac output and hemodynamic stability Description: Patient's goal is: INTERVENTIONS: 1. Monitor vital signs, rhythm, and trends 2. Monitor for bleeding, hypotension and signs of decreased cardiac output 3. Administer ordered vasoactive medications to optimize hemodynamic stability 4. Monitor arterial and/or venous puncture sites for bleeding and/or hematoma 5. Assess quality of pulses, skin color and temperature Outcome: Progressing Note: Evaluation of progress towards goal: vss Goal: Absence of cardiac dysrhythmias or at baseline Description: INTERVENTIONS: 1. Continuous cardiac monitoring, monitor vital signs, obtain 12 lead EKG as ordered 2. Monitor for therapeutic effect/ side effects and safely 3. Administer antiarrhythmic and heart rate control medications as ordered 3. Initiate emergency measures for life threatening arrhythmias 4. Monitor labs and administer replacement/adjust therapy as ordered Outcome: Progressing Note: Evaluation of progress towards goal: no cardiac dysrhythmias noted Images from the original note were not included. [facility] Morris Belle is a 74 y.o. male who has requested [facility] for refusal of blood transfusions (whole blood, red cells, white cells, platelets, plasma). Rounded on patient after procedure. Resting in bed. All bloodless care forms already completed. No additional questions from patient at this time. Reason for Blood Refusal: Mandaeism - Religion [facility] Education Provided: Refusal to Permit Blood Transfusions Consent Complete, [facility] Patient Choices Complete, No Blood Identifiers in Place, and DPA on File [facility] Patient Choices: ACCEPTS Minor Blood Fractions: Albumin, Erythropoietin, Topical agents, Clotting factors, Immunoglobulins Procedures with Own Blood: Platelet gel, Labeling/Tagging, Epidural Blood Patch Continuous Circuit Equipment: Cell saver, Hemodilution, Heart/Lung bypass, Hemodialysis, Apheresis Minimization of Patient Blood Loss: Blood conservation techniques are an essential part of Blood Management. Please make use of micro draws, bundle/add on labs when possible and limit phlebotomy to an as needed basis for medical decision making only. Please Notify [facility] if Patient: Actively Bleeding, Requires Urgent Surgery, and Hgb < 11 or Drop by 2 Grams from Baseline Lab Results Component Value Date HGB 11.9 (L) 07/17/2024 Thank you for the opportunity to assist in the care of your patient. Please feel free to contact us with any questions or concerns. [facility] nurses can be reached Tuesday - Tuesday 7 am - 3:30 pm. After hours a voicemail can be left for non-emergent needs, and we will respond on the next business day. For any emergent after hour needs, please page the on-call provider for Blood Management. [facility] [address], [address] [place] [address] Office: [phone] Occupational Therapy OT Type of Visit: (P) Medical deferral Reason For Medical Deferral: (P) RN deems inappropriate RN Deems Inappropriate: (P) Failed MOVES safety screen Problem: Pain Goal: Patient goal is pain score less than 4, able to rest, and participant in treatment plan as appropriate Description: INTERVENTIONS: 1. Encourage patient or legal customer service representative teacher to report early pain and ask for pain medicine when needed 2. Assess pain using appropriate pain scale and include the scale used when documenting 3. Administer analgesics based on type and severity of pain and evaluate response within appropriate time frame 4. Implement non-pharmacological measures as appropriate and evaluate response 5. Consider cultural and social influences on pain and pain management 6. Notify LIP if interventions ineffective or patient reports new pain 7. Monitor vital signs including pulse ox, end-tidal CO2 based on pain intervention 8. Reassess pain per policy 9. Teach patient or legal customer service representative teacher interventions for comforting Note: Patient will continue to be monitored every hour for pain increase and as needed after receiving medications for pain. Problem: Safety Goal: Patient will be injury free during hospitalization Description: INTERVENTIONS: 1. Assess patient's risk for falls and implement fall prevention plan of care per policy 2. Provide and maintain a safe environment 3. Proper use of double Identifiers 4. Medication administration using the 5 rights 5. Hand hygiene 6. Specimens are labeled at the bedside 7. Instruct patient/ patient customer service representative teacher about use of safety devices 8. Include patient/ patient customer service representative teacher in decisions related to safety Note: Patient resting comfortably in bed. Bed in lowest position, wheels locked and call light within reach. Problem: Infection Goal: Absence of infection during hospitalization Description: INTERVENTIONS 1. Assess and monitor for signs and symptoms of infection. 2. Monitor lab/diagnostic results. 3. Monitor all insertion sites i.e., indwelling lines, tubes and drains. 4. Monitor endotracheal (as able) and nasal secretions for changes in amount and color. 5. Administer medications as ordered. 6. Instruct and encourage patient and family to use good hand hygiene technique. 7. Identify and instruct patient/patient customer service representative teacher in use of appropriate isolation precautions for identified infection/symptoms. 8. Provide and discuss with patient/patient customer service representative teacher on educational MDRO sheet. 9. Encourage and monitor nutritional status daily and consult clearance diver if indicated. 10. Implement neutropenic guidelines as needed. Note: Patients vital signs and temperature will remain with in normal limits. Will continue to monitor vital signs hourly and temperature every 4 hours. Problem: Knowledge Deficit Goal: Patient/patient customer service representative teacher demonstrates understanding of disease process, treatment plan, medications, and discharge instructions Description: INTERVENTIONS 1. Complete learning assessment and assess knowledge base 2. Provide teaching at level of understanding 3. Provide teaching via preferred learning method(s) Note: Patient will demonstrate an understanding of disease process, treatment plan, medications and discharge instruction prior to leaving the floor / hospital. Problem: Discharge Planning Goal: Discharge to post-acute care, other facility, or home with appropriate resources Description: Patient's goal is: INTERVENTIONS 1. Conduct assessment to determine patient/family and health care team treatment goals, and need for post-acute services based on payer coverage, community resources, and patient preferences, and barriers to discharge 2. Coordinate with Social work, Care Navigation, and Utilization Review to arrange appropriate level of services according to patient's needs based on patient preference and payer coverage in collaboration with the physician and health care team 3. Address psychosocial, clinical, and financial barriers to discharge as identified in assessment in conjunction with the patient/family and health care team 4. Consult appropriate ancillary services (i.e.. PT/OT/ST, etc) as needed 5. Communicate with and update the patient/family, physician, and health care team regarding progress on the discharge plan 6. Identify discharge learning needs (meds, wound care, etc). 7. Arrange for needed discharge transportation as appropriate Note: Patient plans to be discharged home with . Patient is not ready to be discharged at this time. Patient will continue to be monitored hourly and assessed for readiness to be discharged. Problem: Cardiovascular - Adult Goal: Maintains optimal cardiac output and hemodynamic stability Description: Patient's goal is: INTERVENTIONS: 1. Monitor vital signs, rhythm, and trends 2. Monitor for bleeding, hypotension and signs of decreased cardiac output 3. Administer ordered vasoactive medications to optimize hemodynamic stability 4. Monitor arterial and/or venous puncture sites for bleeding and/or hematoma 5. Assess quality of pulses, skin color and temperature Note: Patient will continue to remain on continuous telemetry until they are discharged from the floor or hospital. Pre Procedure Evaluation: H&P was reviewed and the patient was examined. No change has occurred in the patient's condition since the H&P was completed. ASA: 3 Mallampati: II Sedation plan and risks discussed with: patient Physical Therapy PT Type of Visit: Medical deferral Reason For Medical Deferral: RN deems inappropriate RN Deems Inappropriate: Failed MOVES safety screen Problem: Pain Goal: Patient goal is pain score less than 4, able to rest, and participant in treatment plan as appropriate Description: INTERVENTIONS: 1. Encourage patient or legal customer service representative teacher to report early pain and ask for pain medicine when needed 2. Assess pain using appropriate pain scale and include the scale used when documenting 3. Administer analgesics based on type and severity of pain and evaluate response within appropriate time frame 4. Implement non-pharmacological measures as appropriate and evaluate response 5. Consider cultural and social influences on pain and pain management 6. Notify LIP if interventions ineffective or patient reports new pain 7. Monitor vital signs including pulse ox, end-tidal CO2 based on pain intervention 8. Reassess pain per policy 9. Teach patient or legal customer service representative teacher interventions for comforting Outcome: Progressing Note: Evaluation of progress towards goal: pt denies pain at this time Problem: Safety Goal: Patient will be injury free during hospitalization Description: INTERVENTIONS: 1. Assess patient's risk for falls and implement fall prevention plan of care per policy 2. Provide and maintain a safe environment 3. Proper use of double Identifiers 4. Medication administration using the 5 rights 5. Hand hygiene 6. Specimens are labeled at the bedside 7. Instruct patient/ patient customer service representative teacher about use of safety devices 8. Include patient/ patient customer service representative teacher in decisions related to safety Outcome: Progressing Note: Evaluation of progress towards goal: Patient is injury free, hourly rounding in place, safe environment maintained - bed is low and locked, room is free of hazards, call light is within reach Problem: Infection Goal: Absence of infection during hospitalization Description: INTERVENTIONS 1. Assess and monitor for signs and symptoms of infection. 2. Monitor lab/diagnostic results. 3. Monitor all insertion sites i.e., indwelling lines, tubes and drains. 4. Monitor endotracheal (as able) and nasal secretions for changes in amount and color. 5. Administer medications as ordered. 6. Instruct and encourage patient and family to use good hand hygiene technique. 7. Identify and instruct patient/patient customer service representative teacher in use of appropriate isolation precautions for identified infection/symptoms. 8. Provide and discuss with patient/patient customer service representative teacher on educational MDRO sheet. 9. Encourage and monitor nutritional status daily and consult clearance diver if indicated. 10. Implement neutropenic guidelines as needed. Outcome: Progressing Note: Evaluation of progress towards goal: no s/s of infection Problem: Knowledge Deficit Goal: Patient/patient customer service representative teacher demonstrates understanding of disease process, treatment plan, medications, and discharge instructions Description: INTERVENTIONS 1. Complete learning assessment and assess knowledge base 2. Provide teaching at level of understanding 3. Provide teaching via preferred learning method(s) Outcome: Progressing Note: Evaluation of progress towards goal: pt has verbalized understanding of medications and treatment plan Problem: Discharge Planning Goal: Discharge to post-acute care, other facility, or home with appropriate resources Description: Patient's goal is: INTERVENTIONS 1. Conduct assessment to determine patient/family and health care team treatment goals, and need for post-acute services based on payer coverage, community resources, and patient preferences, and barriers to discharge 2. Coordinate with Social work, Care Navigation, and Utilization Review to arrange appropriate level of services according to patient's needs based on patient preference and payer coverage in collaboration with the physician and health care team 3. Address psychosocial, clinical, and financial barriers to discharge as identified in assessment in conjunction with the patient/family and health care team 4. Consult appropriate ancillary services (i.e.. PT/OT/ST, etc) as needed 5. Communicate with and update the patient/family, physician, and health care team regarding progress on the discharge plan 6. Identify discharge learning needs (meds, wound care, etc). 7. Arrange for needed discharge transportation as appropriate Outcome: Progressing Note: Evaluation of progress towards goal: no set discharge at this time Problem: Low Risk Fall Score Description: Quinteros Fall Score of 0 - 24 or indicated by [facility] Assessment Goal: Patient should be free from fall Description: Interventions: 1. [place] to environment 2. Hourly rounds addressing the 4 P's (Pain, Positioning, Possessions, Potty) 3. Clear area of hazards (spills, clutter, electrical cords, unnecessary equipment) 4. Place equipment (bed & TV controls, call light, phone, urinal) within reach 5. Encourage patient to wear glasses and hearing aides as appropriate 6. Maintain bed in lowest position 7. Lock wheels on bed/wheelchair 8. Provide adequate lighting, including night light 9. Assess need for additional bedding, food/fluids, pain med's prior to sleep/routinely 10. Provide gripper slippers or personal non-skid footwear 11. Teach patient and patient customer service representative teacher to maintain environment for safety and engage in all aspects of fall prevention program Outcome: Progressing Note: Evaluation of progress towards goal: Patient is free of falls, hourly rounding and fall precautions are in place Problem: Cardiovascular - Adult Goal: Maintains optimal cardiac output and hemodynamic stability Description: Patient's goal is: INTERVENTIONS: 1. Monitor vital signs, rhythm, and trends 2. Monitor for bleeding, hypotension and signs of decreased cardiac output 3. Administer ordered vasoactive medications to optimize hemodynamic stability 4. Monitor arterial and/or venous puncture sites for bleeding and/or hematoma 5. Assess quality of pulses, skin color and temperature Outcome: Progressing Note: Evaluation of progress towards goal: pt is in [facility], scheduled for PPM tomorrow AM Goal: Absence of cardiac dysrhythmias or at baseline Description: INTERVENTIONS: 1. Continuous cardiac monitoring, monitor vital signs, obtain 12 lead EKG as ordered 2. Monitor for therapeutic effect/ side effects and safely 3. Administer antiarrhythmic and heart rate control medications as ordered 3. Initiate emergency measures for life threatening arrhythmias 4. Monitor labs and administer replacement/adjust therapy as ordered Outcome: Progressing Note: Evaluation of progress towards goal: pt is in [facility] Problem: Moderate - High Risk Fall Score Description: Quinteros Fall Score of =/> 25 or indicated by [facility] Assessment Goal: Patient should be free from fall Description: Interventions: 1. [place] to environment 2. Hourly rounds addressing the 4 P's (Pain, Positioning, Possessions, Potty) 3. Clear area of hazards (spills, clutter, electrical cords, unnecessary equipment) 4. Place equipment (bed & TV controls, call light, phone, urinal) within reach 5. Encourage patient to wear glasses and hearing aides as appropriate 6. Maintain bed in lowest position 7. Lock wheels on bed/wheelchair 8. Provide adequate lighting, including night light 9. Assess need for additional bedding, food/fluids, pain med's prior to sleep/routinely 10. Provide gripper slippers or personal non-skid footwear 11. Teach patient and patient customer service representative teacher to maintain environment for safety and engage in all aspects of fall prevention program 12. Remind patient to call for help before getting out of bed 13. Initiate bed/chair/exit alarms supportive devices as appropriate, (chair wedge, no-skid floor mat, raised edge mattress, hip protectors) 14. Locate patient bed assignment for optimal visualization 15. Evaluate and identify Safe Patient Handling Equipment needs 16. Provide supervision when out of bed or chair 17. Utilize gait belt as needed to assist with ambulation 18. Place adaptive equipment (cane, walker) within reach 19. Request patient customer service representative teacher bring adaptive equipment/mobility aids from home or obtain and provide as needed 20. Consult pharmacy regarding effects of med's affecting mobility, cognition, and alternatives 21. Obtain physician order for PT if risk factors associated with mobility are present 22. Obtain physician order for OT as appropriate 23. Utilize diversional activities 24. Educate patient and patient customer service representative teacher how to maintain a safe environment during visitation times (notify nurse prior to leaving bedside) 25. Consider appropriateness of medical or non-medical data analyst 26. Set up voiding schedule as appropriate (every 2 hours) Outcome: Progressing Note: Evaluation of progress towards goal: Patient is free of falls, hourly rounding and fall precautions are in place Problem: Pain Goal: Patient goal is pain score less than 4, able to rest, and participant in treatment plan as appropriate Description: INTERVENTIONS: 1. Encourage patient or legal customer service representative teacher to report early pain and ask for pain medicine when needed 2. Assess pain using appropriate pain scale and include the scale used when documenting 3. Administer analgesics based on type and severity of pain and evaluate response within appropriate time frame 4. Implement non-pharmacological measures as appropriate and evaluate response 5. Consider cultural and social influences on pain and pain management 6. Notify LIP if interventions ineffective or patient reports new pain 7. Monitor vital signs including pulse ox, end-tidal CO2 based on pain intervention 8. Reassess pain per policy 9. Teach patient or legal customer service representative teacher interventions for comforting Note: Patient will continue to be monitored every hour for pain increase and as needed after receiving medications for pain. Problem: Safety Goal: Patient will be injury free during hospitalization Description: INTERVENTIONS: 1. Assess patient's risk for falls and implement fall prevention plan of care per policy 2. Provide and maintain a safe environment 3. Proper use of double Identifiers 4. Medication administration using the 5 rights 5. Hand hygiene 6. Specimens are labeled at the bedside 7. Instruct patient/ patient customer service representative teacher about use of safety devices 8. Include patient/ patient customer service representative teacher in decisions related to safety Note: Patient resting comfortably in bed. Bed in lowest position, wheels locked and call light within reach. Problem: Infection Goal: Absence of infection during hospitalization Description: INTERVENTIONS 1. Assess and monitor for signs and symptoms of infection. 2. Monitor lab/diagnostic results. 3. Monitor all insertion sites i.e., indwelling lines, tubes and drains. 4. Monitor endotracheal (as able) and nasal secretions for changes in amount and color. 5. Administer medications as ordered. 6. Instruct and encourage patient and family to use good hand hygiene technique. 7. Identify and instruct patient/patient customer service representative teacher in use of appropriate isolation precautions for identified infection/symptoms. 8. Provide and discuss with patient/patient customer service representative teacher on educational MDRO sheet. 9. Encourage and monitor nutritional status daily and consult clearance diver if indicated. 10. Implement neutropenic guidelines as needed. Note: Patients vital signs and temperature will remain with in normal limits. Will continue to monitor vital signs hourly and temperature every 4 hours. Problem: Knowledge Deficit Goal: Patient/patient customer service representative teacher demonstrates understanding of disease process, treatment plan, medications, and discharge instructions Description: INTERVENTIONS 1. Complete learning assessment and assess knowledge base 2. Provide teaching at level of understanding 3. Provide teaching via preferred learning method(s) Note: Patient will demonstrate an understanding of disease process, treatment plan, medications and discharge instruction prior to leaving the floor / hospital. Problem: Discharge Planning Goal: Discharge to post-acute care, other facility, or home with appropriate resources Description: Patient's goal is: INTERVENTIONS 1. Conduct assessment to determine patient/family and health care team treatment goals, and need for post-acute services based on payer coverage, community resources, and patient preferences, and barriers to discharge 2. Coordinate with Social work, Care Navigation, and Utilization Review to arrange appropriate level of services according to patient's needs based on patient preference and payer coverage in collaboration with the physician and health care team 3. Address psychosocial, clinical, and financial barriers to discharge as identified in assessment in conjunction with the patient/family and health care team 4. Consult appropriate ancillary services (i.e.. PT/OT/ST, etc) as needed 5. Communicate with and update the patient/family, physician, and health care team regarding progress on the discharge plan 6. Identify discharge learning needs (meds, wound care, etc). 7. Arrange for needed discharge transportation as appropriate Note: Patient plans to be discharged home with . Patient is not ready to be discharged at this time. Patient will continue to be monitored hourly and assessed for readiness to be discharged. Problem: Cardiovascular - Adult Goal: Maintains optimal cardiac output and hemodynamic stability Description: Patient's goal is: INTERVENTIONS: 1. Monitor vital signs, rhythm, and trends 2. Monitor for bleeding, hypotension and signs of decreased cardiac output 3. Administer ordered vasoactive medications to optimize hemodynamic stability 4. Monitor arterial and/or venous puncture sites for bleeding and/or hematoma 5. Assess quality of pulses, skin color and temperature Note: Patient will continue to remain on continuous telemetry until they are discharged from the floor or hospital. documented in this encounter [facility] 07-18-2024 Progress note Formatting of t his note is different from the original. Images from the original note were not included. [facility] Rounded. Patient sitting up in chair. Updated on current Hgb. Patient states he believes he is to be discharged later today. NO BLOOD identifiers in place. Minimization of Patient Blood Loss: Blood conservation techniques are an essential part of Blood Management. Please make use of micro draws, bundle/add on labs when possible and limit phlebotomy to an as needed basis for medical decision making only. Please Notify [facility] Care if Patient: Actively Bleeding, Requires Urgent Surgery, and Hgb < 11 or Drop by 2 Grams from Baseline Lab Results Component Value Date HGB 11.7 (L) 07/18/2024 IRON 49 (L) 07/18/2024 TIBC 349 07/18/2024 IRONSAT 14 (L) 07/18/2024 FERRITIN 165 07/18/2024 [id number] 602 07/18/2024 FOLATE 22.0 07/18/2024 Thank you for the opportunity to assist in the care of your patient. Please feel free to contact us with any questions or concerns. [facility] nurses can be reached Tuesday - Tuesday 7 am - 3:30 pm. After hours a voicemail can be left for non-emergent needs, and we will respond on the next business day. For any emergent after hour needs, please page the on-call provider for Blood Management. [facility] [address] [place] [address], [address] [place] [address] Office: [phone] [employer] 07-18-2024 Progress note Formatting of t his note is different from the original. 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 Was placed on monitor 07/09/24 x2 days and noted CHB. Advised to go to ER. HR in 30s. Pt c/o Progressive SOB and lightheadedness. 07/17 Dual Chamber Pacer placed with L bundle branch pacing leads Pt amb without deficit and has 25/10 assist. 6 Clicks: Basic Mobility Turning from your back to your side while in a flat bed without using bed rails?: A little Moving from lying on your back to sitting on side of flat bed without using bed rails?: A little Moving to and from bed to a chair (including w/c)?: A little Standing up from a chair using your arms (e.g. w/c or bedside chair)?: A little To walk in hospital room?: A little Climbing 3-5 steps with a railing?: A little Scoring 6 Clicks: Basic Mobility Raw Score: 18 CMS G Code Modifier: CK Past Medical History: Diagnosis Date Abscess Cataract Chronic pain disorder Colon polyp 2003 Dyslipidemia Edema LE Hoarseness Hypoparathyroidism Joint pain Neuropathy Neuropathy estela feet Obesity PAD (peripheral artery disease) Peripheral polyneuropathy Sinus arrhythmia 06/26/2024 Tailor's bunion Visual impairment Past Surgical History: Procedure Laterality Date ACHILLES TENDON REPAIR BOWEL RESECTION 2004 large colon resection Cardiac catheterization - CORS + LV GRAM/PRESS (86830) N/A 11/25/2021 Performed by Savannah Ribeiro MD at [facility] CARDIAC CATH LABS CARPAL TUNNEL RELEASE 2005 COLON SURGERY EXTRACTION CATARACT INTRAOCULAR LENS Left 01/20/2021 Performed by Gage Ramírez MD at [facility] EXTRACTION CATARACT INTRAOCULAR LENS Right 01/08/2021 Performed by Gage Ramírez MD at [facility] Chief Complaint Patient presents with Slow Heart Rate Medical Problem Therapy Plan No need for skilled PT intervention due to level of independence at this time. Therapy signing off with pt aware. No Current Skilled PT: Safe to return home Patient Response to Treatment: Discontinue therapy Assessment Patient Assessment Patient Response to Treatment: Discontinue therapy Mood/Affect: Appropriate for circumstances Rehab Prognosis: Good Visit RN Communication: Yes Medical Record Reviewed: Yes PT Type of Visit: Evaluation Precautions Activity: early mobility yes Equipment: gait belt Pacemaker/ICD: Pacemaker (placed 07/17) Telemetry/Rn Labor And Delivery: Yes Oxygen Used: room air Other: low fall risk Pain Assessment Pain Assessment: 0-10 Pain Score: 4 Observed Behavior: Calm Pain Location: Incision Pain Intervention(s): Repositioned, Ambulation/increased activity Response to Interventions: Pain unchanged Pain 2 Observed Behavior: Calm Home Living Type of Home: House Home Layout: One level, Work area in basement Stairs to Enter: 2-3 Hand Rails: Right Stairs in Home: flight Hand Rails in Home: Left Bathroom Shower/Tub: Tub/shower unit Bathroom Toilet: Standard Bathroom Equipment: Grab bars in shower, Hand-held shower Bathroom Accessibility: Accessible Home Equipment: Cane, Wheelchair-manual Prior Function Lives With: Spouse, Son (Son has CP and requires pt assist for ambulation. Spouse retired and able to assist) Level of Mobility: Independent with ADLs and functional transfers or gait Homemaking Assistance: Independent Vocational: Retired Other: denies falls. Very active RN OCCUPATIONAL Hearing / Speech / Vision Hearing: Within Functional Limits Speech: Within Functional Limits Cognition Overall Cognitive Status: Within Functional Limits Sensation Overall Sensation Status: Consistent with premorbid status (neuropathy feet) Bed Mobility Other: in chair on arrival Transfers Sit to Stand: Standby assist Stand to Sit: Standby assist Other: No AD used. Gait Base of Support: Within Functional Limits Pattern: Decreased rajeev Gait Assistance: Standby assist Assistive Device: None Gait Distance: 150' Other: Steady throughout without LOB or change of vitals Balance Balance Evaluation: Within Functional Limits Sitting Balance: Static: Good Sitting Balance: Dynamic: Good Standing Balance: Static: Good Standing Balance: Dynamic: Fair RLE Assessment: Within Functional Limits LLE Assessment: Within Functional Limits Activity Tolerance Endurance: Tolerates <30 minutes activity WITHOUT vital sign changes Plan Physical Therapy Care Plan Physical Therapy Care Plan (Active) There are no active problems. Physical Therapy Care Plan (Resolved) There are no resolved problems. Principal Problem: Complete heart block (CMS-HCC) T [facility] 07-18-2024 Plan of care note Problem: Pain Goal: Patient goal is pain score less than 4, able to rest, and participant in treatment plan as appropriate Description: INTERVENTIONS: 1. Encourage patient or legal customer service representative teacher to report early pain and ask for pain medicine when needed 2. Assess pain using appropriate pain scale and include the scale used when documenting 3. Administer analgesics based on type and severity of pain and evaluate response within appropriate time frame 4. Implement non-pharmacological measures as appropriate and evaluate response 5. Consider cultural and social influences on pain and pain management 6. Notify LIP if interventions ineffective or patient reports new pain 7. Monitor vital signs including pulse ox, end-tidal CO2 based on pain intervention 8. Reassess pain per policy 9. Teach patient or legal customer service representative teacher interventions for comforting Outcome: Progressing Note: Evaluation of progress towards goal: pt denies pain at this time. Pt encouraged to notify RN if pain arises. Problem: Safety Goal: Patient will be injury free during hospitalization Description: INTERVENTIONS: 1. Assess patient's risk for falls and implement fall prevention plan of care per policy 2. Provide and maintain a safe environment 3. Proper use of double Identifiers 4. Medication administration using the 5 rights 5. Hand hygiene 6. Specimens are labeled at the bedside 7. Instruct patient/ patient customer service representative teacher about use of safety devices 8. Include patient/ patient customer service representative teacher in decisions related to safety Outcome: Progressing Note: Evaluation of progress towards goal: pt remains free from injury - call light within reach. Pt informed to call out for any needs and to not get out of bed without assistance. Problem: Infection Goal: Absence of infection during hospitalization Description: INTERVENTIONS 1. Assess and monitor for signs and symptoms of infection. 2. Monitor lab/diagnostic results. 3. Monitor all insertion sites i.e., indwelling lines, tubes and drains. 4. Monitor endotracheal (as able) and nasal secretions for changes in amount and color. 5. Administer medications as ordered. 6. Instruct and encourage patient and family to use good hand hygiene technique. 7. Identify and instruct patient/patient customer service representative teacher in use of appropriate isolation precautions for identified infection/symptoms. 8. Provide and discuss with patient/patient customer service representative teacher on educational MDRO sheet. 9. Encourage and monitor nutritional status daily and consult clearance diver if indicated. 10. Implement neutropenic guidelines as needed. Outcome: Progressing Note: Evaluation of progress towards goal: no s/s of infection - wbc 6.7. no swelling around site. Problem: Knowledge Deficit Goal: Patient/patient customer service representative teacher demonstrates understanding of disease process, treatment plan, medications, and discharge instructions Description: INTERVENTIONS 1. Complete learning assessment and assess knowledge base 2. Provide teaching at level of understanding 3. Provide teaching via preferred learning method(s) Outcome: Progressing Note: Evaluation of progress towards goal: pt verbalizes plan of care. Likely discharge home today. Problem: Discharge Planning Goal: Discharge to post-acute care, other facility, or home with appropriate resources Description: Patient's goal is: INTERVENTIONS 1. Conduct assessment to determine patient/family and health care team treatment goals, and need for post-acute services based on payer coverage, community resources, and patient preferences, and barriers to discharge 2. Coordinate with Social work, Care Navigation, and Utilization Review to arrange appropriate level of services according to patient's needs based on patient preference and payer coverage in collaboration with the physician and health care team 3. Address psychosocial, clinical, and financial barriers to discharge as identified in assessment in conjunction with the patient/family and health care team 4. Consult appropriate ancillary services (i.e.. PT/OT/ST, etc) as needed 5. Communicate with and update the patient/family, physician, and health care team regarding progress on the discharge plan 6. Identify discharge learning needs (meds, wound care, etc). 7. Arrange for needed discharge transportation as appropriate Outcome: Progressing Note: Evaluation of progress towards goal: pt lives with spouse. Likely discharge home today, of note - pt requests no blood transfusions. Follows with bloodless care. Problem: Low Risk Fall Score Description: Quinteros Fall Score of 0 - 24 or indicated by [facility] Assessment Goal: Patient should be free from fall Description: Interventions: 1. [place] to environment 2. Hourly rounds addressing the 4 P's (Pain, Positioning, Possessions, Potty) 3. Clear area of hazards (spills, clutter, electrical cords, unnecessary equipment) 4. Place equipment (bed & TV controls, call light, phone, urinal) within reach 5. Encourage patient to wear glasses and hearing aides as appropriate 6. Maintain bed in lowest position 7. Lock wheels on bed/wheelchair 8. Provide adequate lighting, including night light 9. Assess need for additional bedding, food/fluids, pain med's prior to sleep/routinely 10. Provide gripper slippers or personal non-skid footwear 11. Teach patient and patient customer service representative teacher to maintain environment for safety and engage in all aspects of fall prevention program Outcome: Progressing Note: Evaluation of progress towards goal: pt remains free from falls, non skid socks on and pt encouraged to call for assistance before ambulating. Problem: Cardiovascular - Adult Goal: Maintains optimal cardiac output and hemodynamic stability Description: Patient's goal is: INTERVENTIONS: 1. Monitor vital signs, rhythm, and trends 2. Monitor for bleeding, hypotension and signs of decreased cardiac output 3. Administer ordered vasoactive medications to optimize hemodynamic stability 4. Monitor arterial and/or venous puncture sites for bleeding and/or hematoma 5. Assess quality of pulses, skin color and temperature Outcome: Progressing Note: Evaluation of progress towards goal: pacemaker pacing 1:1, BP stable. Goal: Absence of cardiac dysrhythmias or at baseline Description: INTERVENTIONS: 1. Continuous cardiac monitoring, monitor vital signs, obtain 12 lead EKG as ordered 2. Monitor for therapeutic effect/ side effects and safely 3. Administer antiarrhythmic and heart rate control medications as ordered 3. Initiate emergency measures for life threatening arrhythmias 4. Monitor labs and administer replacement/adjust therapy as ordered Outcome: Progressing Note: Evaluation of progress towards goal: Pacing AV 1:1, device interrogation planned for this morning. Problem: Moderate - High Risk Fall Score Description: Quinteros Fall Score of =/> 25 or indicated by [facility] Assessment Goal: Patient should be free from fall Description: Interventions: 1. [place] to environment 2. Hourly rounds addressing the 4 P's (Pain, Positioning, Possessions, Potty) 3. Clear area of hazards (spills, clutter, electrical cords, unnecessary equipment) 4. Place equipment (bed & TV controls, call light, phone, urinal) within reach 5. Encourage patient to wear glasses and hearing aides as appropriate 6. Maintain bed in lowest position 7. Lock wheels on bed/wheelchair 8. Provide adequate lighting, including night light 9. Assess need for additional bedding, food/fluids, pain med's prior to sleep/routinely 10. Provide gripper slippers or personal non-skid footwear 11. Teach patient and patient customer service representative teacher to maintain environment for safety and engage in all aspects of fall prevention program 12. Remind patient to call for help before getting out of bed 13. Initiate bed/chair/exit alarms supportive devices as appropriate, (chair wedge, no-skid floor mat, raised edge mattress, hip protectors) 14. Locate patient bed assignment for optimal visualization 15. Evaluate and identify Safe Patient Handling Equipment needs 16. Provide supervision when out of bed or chair 17. Utilize gait belt as needed to assist with ambulation 18. Place adaptive equipment (cane, walker) within reach 19. Request patient customer service representative teacher bring adaptive equipment/mobility aids from home or obtain and provide as needed 20. Consult pharmacy regarding effects of med's affecting mobility, cognition, and alternatives 21. Obtain physician order for PT if risk factors associated with mobility are present 22. Obtain physician order for OT as appropriate 23. Utilize diversional activities 24. Educate patient and patient customer service representative teacher how to maintain a safe environment during visitation times (notify nurse prior to leaving bedside) 25. Consider appropriateness of medical or non-medical data analyst 26. Set up voiding schedule as appropriate (every 2 hours) Outcome: Progressing Note: Evaluation of progress towards goal: pt remains free from falls, non skid socks in place. Pt encouraged to also not move his left arm over head s/p pacer. [facility] 07-17-2024 Plan of care note Problem: Pain Goal: Patient goal is pain score less than 4, able to rest, and participant in treatment plan as appropriate Description: INTERVENTIONS: 1. Encourage patient or legal customer service representative teacher to report early pain and ask for pain medicine when needed 2. Assess pain using appropriate pain scale and include the scale used when documenting 3. Administer analgesics based on type and severity of pain and evaluate response within appropriate time frame 4. Implement non-pharmacological measures as appropriate and evaluate response 5. Consider cultural and social influences on pain and pain management 6. Notify LIP if interventions ineffective or patient reports new pain 7. Monitor vital signs including pulse ox, end-tidal CO2 based on pain intervention 8. Reassess pain per policy 9. Teach patient or legal customer service representative teacher interventions for comforting Outcome: Progressing Note: Evaluation of progress towards goal: patient denies pain at this time, has PRN tylenol available and encouraged to call out with pain Problem: Safety Goal: Patient will be injury free during hospitalization Description: INTERVENTIONS: 1. Assess patient's risk for falls and implement fall prevention plan of care per policy 2. Provide and maintain a safe environment 3. Proper use of double Identifiers 4. Medication administration using the 5 rights 5. Hand hygiene 6. Specimens are labeled at the bedside 7. Instruct patient/ patient customer service representative teacher about use of safety devices 8. Include patient/ patient customer service representative teacher in decisions related to safety Outcome: Progressing Note: Evaluation of progress towards goal: Patient is injury free, hourly rounding in place, safe environment maintained - bed is low and locked, room is free of hazards, call light is within reach Problem: Infection Goal: Absence of infection during hospitalization Description: INTERVENTIONS 1. Assess and monitor for signs and symptoms of infection. 2. Monitor lab/diagnostic results. 3. Monitor all insertion sites i.e., indwelling lines, tubes and drains. 4. Monitor endotracheal (as able) and nasal secretions for changes in amount and color. 5. Administer medications as ordered. 6. Instruct and encourage patient and family to use good hand hygiene technique. 7. Identify and instruct patient/patient customer service representative teacher in use of appropriate isolation precautions for identified infection/symptoms. 8. Provide and discuss with patient/patient customer service representative teacher on educational MDRO sheet. 9. Encourage and monitor nutritional status daily and consult clearance diver if indicated. 10. Implement neutropenic guidelines as needed. Outcome: Progressing Note: Evaluation of progress towards goal: no s/s of infection, prophylactic IV ATBS post PPM Problem: Knowledge Deficit Goal: Patient/patient customer service representative teacher demonstrates understanding of disease process, treatment plan, medications, and discharge instructions Description: INTERVENTIONS 1. Complete learning assessment and assess knowledge base 2. Provide teaching at level of understanding 3. Provide teaching via preferred learning method(s) Outcome: Progressing Note: Evaluation of progress towards goal: pt has verbalized understanding of medications and treatment plan Problem: Discharge Planning Goal: Discharge to post-acute care, other facility, or home with appropriate resources Description: Patient's goal is: INTERVENTIONS 1. Conduct assessment to determine patient/family and health care team treatment goals, and need for post-acute services based on payer coverage, community resources, and patient preferences, and barriers to discharge 2. Coordinate with Social work, Care Navigation, and Utilization Review to arrange appropriate level of services according to patient's needs based on patient preference and payer coverage in collaboration with the physician and health care team 3. Address psychosocial, clinical, and financial barriers to discharge as identified in assessment in conjunction with the patient/family and health care team 4. Consult appropriate ancillary services (i.e.. PT/OT/ST, etc) as needed 5. Communicate with and update the patient/family, physician, and health care team regarding progress on the discharge plan 6. Identify discharge learning needs (meds, wound care, etc). 7. Arrange for needed discharge transportation as appropriate Outcome: Progressing Note: Evaluation of progress towards goal: possible discharge home tomorrow Problem: Low Risk Fall Score Description: Quinteros Fall Score of 0 - 24 or indicated by [facility] Assessment Goal: Patient should be free from fall Description: Interventions: 1. [place] to environment 2. Hourly rounds addressing the 4 P's (Pain, Positioning, Possessions, Potty) 3. Clear area of hazards (spills, clutter, electrical cords, unnecessary equipment) 4. Place equipment (bed & TV controls, call light, phone, urinal) within reach 5. Encourage patient to wear glasses and hearing aides as appropriate 6. Maintain bed in lowest position 7. Lock wheels on bed/wheelchair 8. Provide adequate lighting, including night light 9. Assess need for additional bedding, food/fluids, pain med's prior to sleep/routinely 10. Provide gripper slippers or personal non-skid footwear 11. Teach patient and patient customer service representative teacher to maintain environment for safety and engage in all aspects of fall prevention program Outcome: Progressing Note: Evaluation of progress towards goal: Patient is free of falls, hourly rounding and fall precautions are in place Problem: Cardiovascular - Adult Goal: Maintains optimal cardiac output and hemodynamic stability Description: Patient's goal is: INTERVENTIONS: 1. Monitor vital signs, rhythm, and trends 2. Monitor for bleeding, hypotension and signs of decreased cardiac output 3. Administer ordered vasoactive medications to optimize hemodynamic stability 4. Monitor arterial and/or venous puncture sites for bleeding and/or hematoma 5. Assess quality of pulses, skin color and temperature Outcome: Progressing Note: Evaluation of progress towards goal: vss Goal: Absence of cardiac dysrhythmias or at baseline Description: INTERVENTIONS: 1. Continuous cardiac monitoring, monitor vital signs, obtain 12 lead EKG as ordered 2. Monitor for therapeutic effect/ side effects and safely 3. Administer antiarrhythmic and heart rate control medications as ordered 3. Initiate emergency measures for life threatening arrhythmias 4. Monitor labs and administer replacement/adjust therapy as ordered Outcome: Progressing Note: Evaluation of progress towards goal: no cardiac dysrhythmias noted [employer] [facility] 07-17-2024 Note Table formatting fro m the original result was not included. Device Implantation Procedure Summary Primary surgeon: Davie Luna MD Siebel Solution Architect: none Pre-Operative Diagnosis: Complete AV block. Procedure [...] guidewire was introduced into central circulation. Six Fijian sheath was advanced into central circulation over [...] guidewires were introduced into central circulation. 9 Fijian short sheath was placed into central circulation over guidewire. CPS 3D asset protection manager sheath was advanced into right ventricle over [...] milliseconds. - paced QRS: 110 milliseconds. 7 Fijian sheath was advanced into central circulation over [...] Implant Name Type Inv. Item Serial No. Search Planner Lot No. LRB No. Used Action LEAD PCNG 65CM ULTIPACE MR CONDITIONAL BP STRD EMMIE PU PTFE - [id number] - [id number] Implant Lead LEAD PCNG 65CM ULTIPACE MR CONDITIONAL BP STRD EMMIE PU PTFE [id number] [facility] RHYTHM MGT Left 1 Implanted LEAD PCNG 52CM ULTIPACE MR CONDITIONAL BP STRD EMMIE PU PTFE - [id number] - [id number] Implant Lead LEAD PCNG 52CM ULTIPACE MR CONDITIONAL BP STRD EMMIE PU PTFE [id number] [facility] CARDIAC RHYTHM MGT Left 1 Implanted PACEMAKER THK6MM ASSURITY MRI 2 CHMBR IS-1 CNCT [id number] [facility] - [id number] - [id number] Other Implant PACEMAKER THK6MM ASSURITY MRI 2 CHMBR IS-1 CNCT [id number] [facility] [id number] (more content not included)... [facility] 07-17-2024 Progress note Formatting of t his note is different from the original. Images from the original note were not included. BLOODLESS CARE SERVICES Morris Belle is a 74 y.o. male who has requested Bloodless Care Services for refusal of blood transfusions (whole blood, red cells, white cells, platelets, plasma). Rounded on patient after procedure. Resting in bed. All bloodless care forms already completed. No additional questions from patient at this time. Reason for Blood Refusal: Mandaeism - Religion Bloodless Care Education Provided: Refusal to Permit Blood Transfusions Consent Complete, Bloodless Care Patient Choices Complete, No Blood Identifiers in Place, and DPA on File Bloodless Care Patient Choices: ACCEPTS Minor Blood Fractions: Albumin, Erythropoietin, Topical agents, Clotting factors, Immunoglobulins Procedures with Own Blood: Platelet gel, Labeling/Tagging, Epidural Blood Patch Continuous Circuit Equipment: Cell saver, Hemodilution, Heart/Lung bypass, Hemodialysis, Apheresis Minimization of Patient Blood Loss: Blood conservation techniques are an essential part of Blood Management. Please make use of micro draws, bundle/add on labs when possible and limit phlebotomy to an as needed basis for medical decision making only. Please Notify Bloodless Care if Patient: Actively Bleeding, Requires Urgent Surgery, and Hgb < 11 or Drop by 2 Grams from Baseline Lab Results Component Value Date HGB 11.9 (L) 07/17/2024 Thank you for the opportunity to assist in the care of your patient. Please feel free to contact us with any questions or concerns. Bloodless Care nurses can be reached Tuesday - Tuesday 7 am - 3:30 pm. After hours a voicemail can be left for non-emergent needs, and we will respond on the next business day. For any emergent after hour needs, please page the on-call provider for Blood Management. [facility] [address], [address] [place] [address] Office: [phone] [employer] 07-17-2024 Procedure note Summary: Dual- chamber pacemaker implant procedure summary. Device Implantation Procedure Summary Primary surgeon: Davie Luna MD Siebel Solution Architect: none Pre-Operative Diagnosis: Complete AV block. Procedure [...] guidewire was introduced into central circulation. Six Fijian sheath was advanced into central circulation over [...] guidewires were introduced into central circulation. 9 Fijian short sheath was placed into central circulation over guidewire. CPS 3D asset protection manager sheath was advanced into right ventricle over [...] milliseconds. - paced QRS: 110 milliseconds. 7 Fijian sheath was advanced into central circulation over [...] Implant Name Type Inv. Item Serial No. Search Planner Lot No. LRB No. Used Action LEAD PCNG 65CM ULTIPACE MR CONDITIONAL BP STRD EMMIE PU PTFE - [id number] - [id number] Implant Lead LEAD PCNG 65CM ULTIPACE MR CONDITIONAL BP STRD EMMIE PU PTFE [id number] [facility]ARDI[employer] RHYTHM MGT Left 1 Implanted LEAD PCNG 52CM ULTIPACE MR CONDITIONAL BP STRD EMMIE PU PTFE - [id number] - [id number] Implant Lead LEAD PCNG 52CM ULTIPACE MR CONDITIONAL BP STRD EMMIE PU PTFE [id number] [facility] CARDI[employer] RHYTHM MGT Left 1 Implanted PACEMAKER THK6MM ASSURITY MRI 2 CHMBR IS-1 CNCT [id number] [facility] - [id number] - [id number] Other Implant PACEMAKER THK6MM ASSURITY MRI 2 CHMBR IS-1 CNCT [id number] [facility] [id number] ST BLAINE MED CARDIAC RHYTHM MGT Left 1 Implanted [...] No heparin products for next 48 hours. [facility] [employer] 07-17-2024 Procedure note Summary: Dual- chamber pacemaker implant procedure summary. Device Implantation Procedure Summary Primary surgeon: Davie Luna MD Siebel Solution Architect: none Pre-Operative Diagnosis: Complete AV block. Procedure [...] guidewire was introduced into central circulation. Six Fijian sheath was advanced into central circulation over [...] guidewires were introduced into central circulation. 9 Fijian short sheath was placed into central circulation over guidewire. CPS 3D asset protection manager sheath was advanced into right ventricle over [...] milliseconds. - paced QRS: 110 milliseconds. 7 Fijian sheath was advanced into central circulation over [...] Implant Name Type Inv. Item Serial No. Search Planner Lot No. LRB No. Used Action LEAD PCNG 65CM ULTIPACE MR CONDITIONAL BP STRD EMMIE PU PTFE - [id number] - [id number] Implant Lead LEAD PCNG 65CM ULTIPACE MR CONDITIONAL BP STRD EMMIE PU PTFE [id number] [facility] CARDI[employer] RHYTHM MGT Left 1 Implanted LEAD PCNG 52CM ULTIPACE MR CONDITIONAL BP STRD EMMIE PU PTFE - [id number] - [id number] Implant Lead LEAD PCNG 52CM ULTIPACE MR CONDITIONAL BP STRD EMMIE PU PTFE [id number] ST [facility] CARDIAC RHYTHM MGT Left 1 Implanted PACEMAKER THK6MM ASSURITY MRI 2 CHMBR IS-1 CNCT [id number] [facility] - [id number] - [id number] Other Implant PACEMAKER THK6MM ASSURITY MRI 2 CHMBR IS-1 CNCT [id number] [facility] [id number] ST BLAINE MED CARDIAC RHYTHM MGT Left 1 Implanted [...] No heparin products for next 48 hours. documented in this encounter [facility] 07-17-2024 Progress note Formatting of t his note is different from the original. Occupational Therapy OT Type of Visit: (P) Medical deferral Reason For Medical Deferral: (P) RN deems inappropriate RN Deems Inappropriate: (P) Failed MOVES safety screen [facility] 07-17-2024 Plan of care note Problem: Pain Goal: Patient goal is pain score less than 4, able to rest, and participant in treatment plan as appropriate Description: INTERVENTIONS: 1. Encourage patient or legal customer service representative teacher to report early pain and ask for pain medicine when needed 2. Assess pain using appropriate pain scale and include the scale used when documenting 3. Administer analgesics based on type and severity of pain and evaluate response within appropriate time frame 4. Implement non-pharmacological measures as appropriate and evaluate response 5. Consider cultural and social influences on pain and pain management 6. Notify LIP if interventions ineffective or patient reports new pain 7. Monitor vital signs including pulse ox, end-tidal CO2 based on pain intervention 8. Reassess pain per policy 9. Teach patient or legal customer service representative teacher interventions for comforting Note: Patient will continue to be monitored every hour for pain increase and as needed after receiving medications for pain. Problem: Safety Goal: Patient will be injury free during hospitalization Description: INTERVENTIONS: 1. Assess patient's risk for falls and implement fall prevention plan of care per policy 2. Provide and maintain a safe environment 3. Proper use of double Identifiers 4. Medication administration using the 5 rights 5. Hand hygiene 6. Specimens are labeled at the bedside 7. Instruct patient/ patient customer service representative teacher about use of safety devices 8. Include patient/ patient customer service representative teacher in decisions related to safety Note: Patient resting comfortably in bed. Bed in lowest position, wheels locked and call light within reach. Problem: Infection Goal: Absence of infection during hospitalization Description: INTERVENTIONS 1. Assess and monitor for signs and symptoms of infection. 2. Monitor lab/diagnostic results. 3. Monitor all insertion sites i.e., indwelling lines, tubes and drains. 4. Monitor endotracheal (as able) and nasal secretions for changes in amount and color. 5. Administer medications as ordered. 6. Instruct and encourage patient and family to use good hand hygiene technique. 7. Identify and instruct patient/patient customer service representative teacher in use of appropriate isolation precautions for identified infection/symptoms. 8. Provide and discuss with patient/patient customer service representative teacher on educational MDRO sheet. 9. Encourage and monitor nutritional status daily and consult clearance diver if indicated. 10. Implement neutropenic guidelines as needed. Note: Patients vital signs and temperature will remain with in normal limits. Will continue to monitor vital signs hourly and temperature every 4 hours. Problem: Knowledge Deficit Goal: Patient/patient customer service representative teacher demonstrates understanding of disease process, treatment plan, medications, and discharge instructions Description: INTERVENTIONS 1. Complete learning assessment and assess knowledge base 2. Provide teaching at level of understanding 3. Provide teaching via preferred learning method(s) Note: Patient will demonstrate an understanding of disease process, treatment plan, medications and discharge instruction prior to leaving the floor / hospital. Problem: Discharge Planning Goal: Discharge to post-acute care, other facility, or home with appropriate resources Description: Patient's goal is: INTERVENTIONS 1. Conduct assessment to determine patient/family and health care team treatment goals, and need for post-acute services based on payer coverage, community resources, and patient preferences, and barriers to discharge 2. Coordinate with Social work, Care Navigation, and Utilization Review to arrange appropriate level of services according to patient's needs based on patient preference and payer coverage in collaboration with the physician and health care team 3. Address psychosocial, clinical, and financial barriers to discharge as identified in assessment in conjunction with the patient/family and health care team 4. Consult appropriate ancillary services (i.e.. PT/OT/ST, etc) as needed 5. Communicate with and update the patient/family, physician, and health care team regarding progress on the discharge plan 6. Identify discharge learning needs (meds, wound care, etc). 7. Arrange for needed discharge transportation as appropriate Note: Patient plans to be discharged home with . Patient is not ready to be discharged at this time. Patient will continue to be monitored hourly and assessed for readiness to be discharged. Problem: Cardiovascular - Adult Goal: Maintains optimal cardiac output and hemodynamic stability Description: Patient's goal is: INTERVENTIONS: 1. Monitor vital signs, rhythm, and trends 2. Monitor for bleeding, hypotension and signs of decreased cardiac output 3. Administer ordered vasoactive medications to optimize hemodynamic stability 4. Monitor arterial and/or venous puncture sites for bleeding and/or hematoma 5. Assess quality of pulses, skin color and temperature Note: Patient will continue to remain on continuous telemetry until they are discharged from the floor or hospital. [facility] 07-17-2024 Procedure note Pre Procedure Evaluation: H&P was reviewed and the patient was examined. No change has occurred in the patient's condition since the H&P was completed. ASA: 3 Mallampati: II Sedation plan and risks discussed with: patient [facility] 07-17-2024 Progress note Formatting of t his note is different from the original. Physical Therapy PT Type of Visit: Medical deferral Reason For Medical Deferral: RN deems inappropriate RN Deems Inappropriate: Failed MOVES safety screen [facility] 07-16-2024 Plan of care note Problem: Pain Goal: Patient goal is pain score less than 4, able to rest, and participant in treatment plan as appropriate Description: INTERVENTIONS: 1. Encourage patient or legal customer service representative teacher to report early pain and ask for pain medicine when needed 2. Assess pain using appropriate pain scale and include the scale used when documenting 3. Administer analgesics based on type and severity of pain and evaluate response within appropriate time frame 4. Implement non-pharmacological measures as appropriate and evaluate response 5. Consider cultural and social influences on pain and pain management 6. Notify LIP if interventions ineffective or patient reports new pain 7. Monitor vital signs including pulse ox, end-tidal CO2 based on pain intervention 8. Reassess pain per policy 9. Teach patient or legal customer service representative teacher interventions for comforting Outcome: Progressing Note: Evaluation of progress towards goal: pt denies pain at this time Problem: Safety Goal: Patient will be injury free during hospitalization Description: INTERVENTIONS: 1. Assess patient's risk for falls and implement fall prevention plan of care per policy 2. Provide and maintain a safe environment 3. Proper use of double Identifiers 4. Medication administration using the 5 rights 5. Hand hygiene 6. Specimens are labeled at the bedside 7. Instruct patient/ patient customer service representative teacher about use of safety devices 8. Include patient/ patient customer service representative teacher in decisions related to safety Outcome: Progressing Note: Evaluation of progress towards goal: Patient is injury free, hourly rounding in place, safe environment maintained - bed is low and locked, room is free of hazards, call light is within reach Problem: Infection Goal: Absence of infection during hospitalization Description: INTERVENTIONS 1. Assess and monitor for signs and symptoms of infection. 2. Monitor lab/diagnostic results. 3. Monitor all insertion sites i.e., indwelling lines, tubes and drains. 4. Monitor endotracheal (as able) and nasal secretions for changes in amount and color. 5. Administer medications as ordered. 6. Instruct and encourage patient and family to use good hand hygiene technique. 7. Identify and instruct patient/patient customer service representative teacher in use of appropriate isolation precautions for identified infection/symptoms. 8. Provide and discuss with patient/patient customer service representative teacher on educational MDRO sheet. 9. Encourage and monitor nutritional status daily and consult clearance diver if indicated. 10. Implement neutropenic guidelines as needed. Outcome: Progressing Note: Evaluation of progress towards goal: no s/s of infection Problem: Knowledge Deficit Goal: Patient/patient customer service representative teacher demonstrates understanding of disease process, treatment plan, medications, and discharge instructions Description: INTERVENTIONS 1. Complete learning assessment and assess knowledge base 2. Provide teaching at level of understanding 3. Provide teaching via preferred learning method(s) Outcome: Progressing Note: Evaluation of progress towards goal: pt has verbalized understanding of medications and treatment plan Problem: Discharge Planning Goal: Discharge to post-acute care, other facility, or home with appropriate resources Description: Patient's goal is: INTERVENTIONS 1. Conduct assessment to determine patient/family and health care team treatment goals, and need for post-acute services based on payer coverage, community resources, and patient preferences, and barriers to discharge 2. Coordinate with Social work, Care Navigation, and Utilization Review to arrange appropriate level of services according to patient's needs based on patient preference and payer coverage in collaboration with the physician and health care team 3. Address psychosocial, clinical, and financial barriers to discharge as identified in assessment in conjunction with the patient/family and health care team 4. Consult appropriate ancillary services (i.e.. PT/OT/ST, etc) as needed 5. Communicate with and update the patient/family, physician, and health care team regarding progress on the discharge plan 6. Identify discharge learning needs (meds, wound care, etc). 7. Arrange for needed discharge transportation as appropriate Outcome: Progressing Note: Evaluation of progress towards goal: no set discharge at this time Problem: Low Risk Fall Score Description: Quinteros Fall Score of 0 - 24 or indicated by [facility] Assessment Goal: Patient should be free from fall Description: Interventions: 1. [place] to environment 2. Hourly rounds addressing the 4 P's (Pain, Positioning, Possessions, Potty) 3. Clear area of hazards (spills, clutter, electrical cords, unnecessary equipment) 4. Place equipment (bed & TV controls, call light, phone, urinal) within reach 5. Encourage patient to wear glasses and hearing aides as appropriate 6. Maintain bed in lowest position 7. Lock wheels on bed/wheelchair 8. Provide adequate lighting, including night light 9. Assess need for additional bedding, food/fluids, pain med's prior to sleep/routinely 10. Provide gripper slippers or personal non-skid footwear 11. Teach patient and patient customer service representative teacher to maintain environment for safety and engage in all aspects of fall prevention program Outcome: Progressing Note: Evaluation of progress towards goal: Patient is free of falls, hourly rounding and fall precautions are in place Problem: Cardiovascular - Adult Goal: Maintains optimal cardiac output and hemodynamic stability Description: Patient's goal is: INTERVENTIONS: 1. Monitor vital signs, rhythm, and trends 2. Monitor for bleeding, hypotension and signs of decreased cardiac output 3. Administer ordered vasoactive medications to optimize hemodynamic stability 4. Monitor arterial and/or venous puncture sites for bleeding and/or hematoma 5. Assess quality of pulses, skin color and temperature Outcome: Progressing Note: Evaluation of progress towards goal: pt is in [facility], scheduled for PPM tomorrow AM Goal: Absence of cardiac dysrhythmias or at baseline Description: INTERVENTIONS: 1. Continuous cardiac monitoring, monitor vital signs, obtain 12 lead EKG as ordered 2. Monitor for therapeutic effect/ side effects and safely 3. Administer antiarrhythmic and heart rate control medications as ordered 3. Initiate emergency measures for life threatening arrhythmias 4. Monitor labs and administer replacement/adjust therapy as ordered Outcome: Progressing Note: Evaluation of progress towards goal: pt is in [facility] Problem: Moderate - High Risk Fall Score Description: Quinteros Fall Score of =/> 25 or indicated by [facility] Assessment Goal: Patient should be free from fall Description: Interventions: 1. [place] to environment 2. Hourly rounds addressing the 4 P's (Pain, Positioning, Possessions, Potty) 3. Clear area of hazards (spills, clutter, electrical cords, unnecessary equipment) 4. Place equipment (bed & TV controls, call light, phone, urinal) within reach 5. Encourage patient to wear glasses and hearing aides as appropriate 6. Maintain bed in lowest position 7. Lock wheels on bed/wheelchair 8. Provide adequate lighting, including night light 9. Assess need for additional bedding, food/fluids, pain med's prior to sleep/routinely 10. Provide gripper slippers or personal non-skid footwear 11. Teach patient and patient customer service representative teacher to maintain environment for safety and engage in all aspects of fall prevention program 12. Remind patient to call for help before getting out of bed 13. Initiate bed/chair/exit alarms supportive devices as appropriate, (chair wedge, no-skid floor mat, raised edge mattress, hip protectors) 14. Locate patient bed assignment for optimal visualization 15. Evaluate and identify Safe Patient Handling Equipment needs 16. Provide supervision when out of bed or chair 17. Utilize gait belt as needed to assist with ambulation 18. Place adaptive equipment (cane, walker) within reach 19. Request patient customer service representative teacher bring adaptive equipment/mobility aids from home or obtain and provide as needed 20. Consult pharmacy regarding effects of med's affecting mobility, cognition, and alternatives 21. Obtain physician order for PT if risk factors associated with mobility are present 22. Obtain physician order for OT as appropriate 23. Utilize diversional activities 24. Educate patient and patient customer service representative teacher how to maintain a safe environment during visitation times (notify nurse prior to leaving bedside) 25. Consider appropriateness of medical or non-medical data analyst 26. Set up voiding schedule as appropriate (every 2 hours) Outcome: Progressing Note: Evaluation of progress towards goal: Patient is free of falls, hourly rounding and fall precautions are in place [facility] 07-16-2024 History and physical note CCU - Teaching Service - H& P Note Date of Service: 07/16/2024 Patient Name: Morris Belle : 1950 PCP: TARAS WRIGHT MD Chief Complaint: Shortness of breath on exertion. HPI: Morris Belle is a 74-year-old male with a past medical history of coronary artery disease, including a history of apical LAD WING COVERER, hyperlipidemia, and hypertension. He presented with worsening exertional shortness of breath and chest discomfort, and palpitation. He reports intermittent lightheadedness and near-syncope but denies syncopal episodes, paroxysmal nocturnal dyspnea (PND), or orthopnea. His symptoms have progressively worsened over the last few months, with a notable decline in his exercise capacity, as he can no longer complete more than 14 minutes on the treadmill, compared to 30 minutes previously. He went to his film developing machine operator last week and put him on holter for 2 days, then he came today again to follow up, at 2 pm they called him and given him interpretation of Holter which showed complete heart block 12-lead EKG performed in the ER on 07/09/2024 revealed sinus rhythm with a complete AV block and junctional escape rhythm, with a heart rate in the 30s to 40s, though hemodynamically stable. His last echocardiogram from 2021 showed mild concentric LVH, an EF of 50-55%, and elevated right ventricular systolic pressure, indicating moderate to severe pulmonary hypertension. His coronary CTA revealed a distal LAD WING COVERER and moderate stenosis in the RCA with high likelihood of lesion-specific ischemia. He had chest discomfort and an abnormal stress test in 2021, which led to his left heart catheterization and showed apical LAD WING COVERER treated medically without any intervention. The patient is currently on low-dose metoprolol. Today's EKG showed Complete Heart block, right side deviation and prolonged QTC. Consulted EP team Dr. Luna. Recommended proceeding with a pacemaker implant in the morning due to his complete heart block. Once the pacemaker is in place and he recovers, a coronary angiogram can be done as an outpatient, as there is no evidence of acute coronary syndrome. To stop Beta-kiko , but aspirin and statin therapy will continue. And discontinue Amlodipine secondary to new onset of Lower limb edema. SURGICAL HISTORY has a past surgical history that includes Colon surgery; Achilles tendon repair; Bowel resection (2003); Cataract extraction w/ intraocular lens implant (Right, 01/08/2021); Cataract extraction w/ intraocular lens implant (Left, 01/20/2021); Carpal tunnel release (2005); and Cardiac catheterization (N/A, 11/25/2021) Past Medical History: Past Medical History: Diagnosis Date Abscess Cataract Chronic pain disorder Colon polyp 2003 Dyslipidemia Edema LE Hoarseness Hypoparathyroidism Joint pain Neuropathy Neuropathy estela feet Obesity PAD (peripheral artery disease) Peripheral polyneuropathy Sinus arrhythmia 06/26/2024 Declan'anderson lopez Visual impairment Past Surgical History: Past Surgical History: Procedure Laterality Date ACHILLES TENDON REPAIR BOWEL RESECTION 2003 large colon resection Cardiac catheterization - CORS + LV GRAM/PRESS (87200) N/A 11/25/2021 Performed by Savannah Ribeiro MD at [facility] CARDIAC CATH LABS CARPAL TUNNEL RELEASE 2005 COLON SURGERY EXTRACTION CATARACT INTRAOCULAR LENS Left 01/20/2021 Performed by Gage Ramírez MD at [facility] EXTRACTION CATARACT INTRAOCULAR LENS Right 01/08/2021 Performed by Gage Ramírez MD at [facility] Home Medications: Prior to Admission medications Medication Sig Start Date End Date Taking? Authorizing Provider acetaminophen (TYLENOL EXTRA STRENGTH) 500 mg tablet Take 1 tablet (500 mg total) by mouth every 6 (six) hours as needed for pain. 12/14/22 Yes Lyndon Gordon MD amLODIPine (NORVASC) 2.5 mg tablet Take 1 tablet (2.5 mg total) by mouth in the morning. 06/26/24 Yes Bonnie Garrido APRN-EXTENSION CLERK aspirin 81 mg Take 1 tablet (81 mg total) by mouth in the morning. 11/18/21 Yes Hubert Tamayo MD atorvastatin (LIPITOR) 40 mg tablet TAKE 1 TABLET(40 MG) BY MOUTH IN THE MORNING 11/15/23 Yes Perla Askew HYPO DIPPER-EXTENSION CLERK gabapentin (NEURONTIN) 300 mg capsule Take 1 capsule (300 mg total) by mouth in the morning and 1 capsule (300 mg total) before bedtime. Yes Not In System Ref Prov isosorbide mononitrate (IMDUR) 30 mg 24 hr tablet TAKE 1 TABLET(30 MG) BY MOUTH DAILY 01/25/24 Yes Mike Valencia APRN-EXTENSION CLERK metoprolol tartrate (LOPRESSOR) 25 mg tablet Take 0.5 tablets (12.5 mg total) by mouth in the morning and 0.5 tablets (12.5 mg total) before bedtime. Yes Not In System Ref Prov nitroglycerin (NITROSTAT) 0.4 MG SL tablet 1 under the tongue as needed for angina, may repeat q5mins for up three doses 06/27/23 Yes Faviola Gonzalez MD Allergies: Patient has no known allergies. Social History: reports that he has never smoked. He has never used smokeless tobacco. He reports current alcohol use of about 1.0 standard drink of alcohol per week. He reports that he does not use drugs. Family History: Family History Problem Relation Age of Onset Cancer Mother Breast cancer Mother Stroke Father Cancer Sister REVIEW OF SYSTEMS Constitutional: No fevers or chills, no recent weight gain or weight loss or fatigue Eyes: No visual changes or diplopia ENT: No headaches, hearing loss or vertigo Cardiovascular: Per HPI Respiratory: No cough or wheezing, no sputum production, no hematemesis Gastrointestinal: No abdominal pain, no nausea, vomiting, constipation, diarrhea Genitourinary: No dysuria, or hematuria Musculoskeletal: No gait disturbance, weakness or joint complaints Integumentary: No rash or pruritis Neurological: No headache, no prior CVA/TIA Psychiatric: No anxiety, or depression Endocrine: No temperature intolerance Hematologic/Lymphatic: No abnormal bruising or bleeding Vital Signs and Physical Exam: BP 159/63 Pulse (!) 44 Temp 36.8 C (98.2 F) (Oral) Resp 17 Ht 170.2 cm (5' 7 ) Wt 98.4 kg (216 lb 14.9 oz) SpO2 94% BMI 33.98 kg/m No intake or output data in the 24 hours ending 07/16/24 1802 Admission weight: 98.4 kg (216 lb 14.9 oz) Physical Exam PHYSICAL EXAM General appearance: Alert, oriented and cooperative. In [...] noted. Psychiatric: Appropriate mood, memory and judgement. Labs/Imaging: Recent Results (from the past 24 hours) Basic Metabolic Panel Collection Time: 07/16/24 8:43 AM Result Value Ref Range Sodium 141 134 - 146 mmol/L Potassium, Bld 3.6 3.5 - 5.0 mmol/L Chloride 105 98 - 109 mmol/L CO2 27 22 - 32 mmol/L Anion gap 9 5 - 15 mmol/L BUN 14 5 - 27 mg/dL Creatinine 1.39 (H) 0.60 - 1.30 mg/dL Glucose 165 (H) 65 - 99 mg/dL Calcium 8.4 (L) 8.5 - 10.5 mg/dL eGFR (CKD-EPI)non-race dependent 54 (L) >59 ml/min/1.73sq.m CBC without diff Collection Time: 07/16/24 8:43 AM Result Value Ref Range White Blood Cells 8.4 4.0 - 11.0 X10E9/L RBC count 4.16 4.10 - 5.70 X10E12/L Hemoglobin 12.5 (L) 13.0 - 17.0 g/dL Hematocrit 37.7 (L) 39 - 49 % MCV 91 80 - 100 fL MCH 30.1 27 - 34 pg MCHC 33.1 32 - 36 g/dL RDW 14.1 11.5 - 15.0 % Platelets 140 (L) 150 - 450 X10E9/L MPV 10.4 7 - 12 fL Troponin I, High Sensitivity Collection Time: 07/16/24 3:50 PM Result Value Ref Range Troponin I, High Sensitivity 19 <21 ng/L CBC auto differential Collection Time: 07/16/24 3:50 PM Result Value Ref Range White Blood Cells 8.0 4.0 - 11.0 X10E9/L RBC count 4.20 4.10 - 5.70 X10E12/L Hemoglobin 12.9 (L) 13.0 - 17.0 g/dL Hematocrit 37.8 (L) 39 - 49 % MCV 90 80 - 100 fL MCH 30.7 27 - 34 pg MCHC 34.1 32 - 36 g/dL RDW 14.1 11.5 - 15.0 % Platelets 136 (L) 150 - 450 X10E9/L MPV 9.6 7 - 12 fL % neutrophils 44.6 % % lymphocytes 40.4 % % monocytes 12.0 % % eosinophils 2.2 % % Basophils 0.8 % Neutrophils Absolute (A) 3.6 1.5 - 6.6 X10E9/L Lymphocytes Absolute 3.2 1.0 - 3.5 X10E9/L Monocytes Absolute 1.0 (H) 0 - 0.9 X10E9/L Eosinophils Absolute 0.2 0.0 - 0.4 X10E9/L Basophils Absolute 0.1 0.0 - 0.2 X10E9/L Comprehensive metabolic panel Collection Time: 07/16/24 3:50 PM Result Value Ref Range Sodium 142 134 - 146 mmol/L Potassium, Bld 3.8 3.5 - 5.0 mmol/L Chloride 106 98 - 109 mmol/L CO2 26 22 - 32 mmol/L Anion gap 10 5 - 15 mmol/L BUN 14 5 - 27 mg/dL Creatinine 1.44 (H) 0.60 - 1.30 mg/dL Glucose 189 (H) 65 - 99 mg/dL Calcium 8.4 (L) 8.5 - 10.5 mg/dL Total Protein 6.8 6.0 - 8.0 g/dL Albumin 4.2 3.2 - 5.3 g/dL Alkaline Phosphatase 53 39 - 130 U/L AST 42 (H) 0 - 41 U/L ALT 61 (H) 0 - 40 U/L Total bilirubin 0.9 0.3 - 1.2 mg/dL eGFR (CKD-EPI)non-race dependent 52 (L) >59 ml/min/1.73sq.m Lactate w/ Reflex Collection Time: 07/16/24 3:50 PM Result Value Ref Range Lactate w/ Reflex 2.7 (H) 0.4 - 2.0 mmol/L Magnesium Collection Time: 07/16/24 3:50 PM Result Value Ref Range Magnesium 1.9 1.8 - 2.6 mg/dL Protime & INR Collection Time: 07/16/24 3:50 PM Result Value Ref Range Protime 11.8 9.8 - 13.2 sec Inr 1.0 0.9 - 1.2 APTT Collection Time: 07/16/24 3:50 PM Result Value Ref Range aPTT 27 26 - 37 sec B-type natriuretic peptide Collection Time: 07/16/24 3:50 PM Result Value Ref Range BNP 790 (H) <100.0 pg/mL Troponin I, High Sensitivity 1 Hour Collection Time: 07/16/24 4:47 PM Result Value Ref Range 1 Hour Trop I, High Sensitivity 18 <21 ng/L Bedside Glucose *Place/Obtain serum glucose if >500 per glucometer. Collection Time: 07/16/24 5:38 PM Result Value Ref Range Bedside glucose 157 (H) 65 - 99 mg/dL Microbiology Results No results found for the last 168 hours. No results found. ASSESSMENT AND PLAN: Morris Belle is a 74-year-old male with a history of coronary artery disease, apical LAD WING COVERER, hyperlipidemia, and hypertension, presenting with worsening exertional shortness of breath, chest discomfort, and palpitations. He was found to have complete heart block on a Holter monitor and EKG. His coronary CTA showed a distal LAD WING COVERER and moderate RCA stenosis, while his echocardiogram from 2021 revealed mild LVH and pulmonary hypertension. He is scheduled for a pacemaker implant, after which a coronary angiogram will be performed. Beta-blockers will be stopped, but aspirin and statin therapy will continue, and amlodipine will be discontinued due to lower extremity edema. Reviewed the rhythm strips from that test which showed complete heart block. Patient has been in complete heart block for last 2 weeks. patient is on low-dose metoprolol Assessment: 1. Complete AV block. 2. Coronary artery disease, chronic LAD WING COVERER, moderate RCA stenosis with high likelihood of ischemia based on CT- FFR 3. Hypertension 4. Hyperlipidemia Plan: - admit to CCU - EP consulted and recommended to stop Beta-blockers & Amlodipine ( lower limbe edema) - continue aspirin and statin therapy. - Request new echocardiogram. - Prepare to proceed with a pacemaker implant tomorrow morning - Keep him NPO since mid night - Hold Heparin at night - nce the patient recovered from pacemaker implant, coronary angiogram can be performed as outpatient. No evidence of acute coronary syndrome during this visit. DVT prophylaxis: heparin Diet: regular Fluids: None Disposition: TBD Code Status: Full code This note was created with the assistance of a speech-recognition program. Every effort was made to ensure accuracy; however, inadvertent computerized can conveyor feeder errors may be present. Discussed with Dr. Sindy Sutherland Cardiology Attending Estuardo Higginbotham MD - PGY-1 Internal Medicine Resident 07/16/24 6:02 PM Cosigned by Sindy Sutherland MD at 07/16/2024 6:31 PM EDT Associated attestation - Sindy Sutherland MD - 07/16/2024 6:31 PM EDT I, Sindy Sutherland MD, FACC, have personally performed a face to face diagnostic evaluation on this patient. I have reviewed the note authored by the advanced practice provider/resident/fellow and agree with the history of present illness, past medical history, surgical history, social history, family history and review of systems. I have reviewed current medications, and lab values. I have edited the note above to reflect any changes and agree with the assessment and plan. 74-year-old gentleman with history of coronary artery disease and recent abnormal coronary CTA scheduled for outpatient cardiac catheterization 07/22/2024 was found to have complete heart block on Holter monitor and was sent to the ER for evaluation. Currently, he denies chest pain, shortness for breath and palpitations. Denies syncope and presyncope. His heart rate is in the 40s with complete heart block however blood pressure in the 160s. Examination otherwise benign. Patient was evaluated by EP Cardiology earlier today. Plan for permanent pacemaker placement tomorrow morning. Keep patient NPO midnight. Will need cardiac catheterization done as an outpatient which is already scheduled. Avoid AV stephany blocking agents. Telemetry monitoring. Echocardiogram to assess cardiac structure and function. Sindy Sutherland MD, [facility] 07/16/2024 6:29 PM [employer] 07-16-2024 History and physical note CCU - Teaching Service - H& P Note Date of Service: 07/16/2024 Patient Name: Morris Belle : 1950 PCP: TARAS WRIGHT MD Chief Complaint: Shortness of breath on exertion. HPI: Morris Belle is a 74-year-old male with a past medical history of coronary artery disease, including a history of apical LAD WING COVERER, hyperlipidemia, and hypertension. He presented with worsening exertional shortness of breath and chest discomfort, and palpitation. He reports intermittent lightheadedness and near-syncope but denies syncopal episodes, paroxysmal nocturnal dyspnea (PND), or orthopnea. His symptoms have progressively worsened over the last few months, with a notable decline in his exercise capacity, as he can no longer complete more than 14 minutes on the treadmill, compared to 30 minutes previously. He went to his film developing machine operator last week and put him on holter for 2 days, then he came today again to follow up, at 2 pm they called him and given him interpretation of Holter which showed complete heart block 12-lead EKG performed in the ER on 07/09/2024 revealed sinus rhythm with a complete AV block and junctional escape rhythm, with a heart rate in the 30s to 40s, though hemodynamically stable. His last echocardiogram from 2021 showed mild concentric LVH, an EF of 50-55%, and elevated right ventricular systolic pressure, indicating moderate to severe pulmonary hypertension. His coronary CTA revealed a distal LAD WING COVERER and moderate stenosis in the RCA with high likelihood of lesion-specific ischemia. He had chest discomfort and an abnormal stress test in 2021, which led to his left heart catheterization and showed apical LAD WING COVERER treated medically without any intervention. The patient is currently on low-dose metoprolol. Today's EKG showed Complete Heart block, right side deviation and prolonged QTC. Consulted EP team Dr. Luna. Recommended proceeding with a pacemaker implant in the morning due to his complete heart block. Once the pacemaker is in place and he recovers, a coronary angiogram can be done as an outpatient, as there is no evidence of acute coronary syndrome. To stop Beta-kiko , but aspirin and statin therapy will continue. And discontinue Amlodipine secondary to new onset of Lower limb edema. SURGICAL HISTORY has a past surgical history that includes Colon surgery; Achilles tendon repair; Bowel resection (2003); Cataract extraction w/ intraocular lens implant (Right, 01/08/2021); Cataract extraction w/ intraocular lens implant (Left, 01/20/2021); Carpal tunnel release (2005); and Cardiac catheterization (N/A, 11/25/2021) Past Medical History: Past Medical History: Diagnosis Date Abscess Cataract Chronic pain disorder Colon polyp 2003 Dyslipidemia Edema LE Hoarseness Hypoparathyroidism Joint pain Neuropathy Neuropathy estela feet Obesity PAD (peripheral artery disease) Peripheral polyneuropathy Sinus arrhythmia 06/26/2024 Jt lopez Visual impairment Past Surgical History: Past Surgical History: Procedure Laterality Date ACHILLES TENDON REPAIR BOWEL RESECTION 2003 large colon resection Cardiac catheterization - CORS + LV GRAM/PRESS (61560) N/A 11/25/2021 Performed by Savannah Ribeiro MD at [facility] CARDIAC CATH LABS CARPAL TUNNEL RELEASE 2005 COLON SURGERY EXTRACTION CATARACT INTRAOCULAR LENS Left 01/20/2021 Performed by Gage Ramírez MD at [facility] EXTRACTION CATARACT INTRAOCULAR LENS Right 01/08/2021 Performed by Gage Ramírez MD at [facility] Home Medications: Prior to Admission medications Medication Sig Start Date End Date Taking? Authorizing Provider acetaminophen (TYLENOL EXTRA STRENGTH) 500 mg tablet Take 1 tablet (500 mg total) by mouth every 6 (six) hours as needed for pain. 12/14/22 Yes Lyndon Gordon MD amLODIPine (NORVASC) 2.5 mg tablet Take 1 tablet (2.5 mg total) by mouth in the morning. 06/26/24 Yes Bonnie Garrido HYPO DIPPER-EXTENSION CLERK aspirin 81 mg Take 1 tablet (81 mg total) by mouth in the morning. 11/18/21 Yes Hubert Tamayo MD atorvastatin (LIPITOR) 40 mg tablet TAKE 1 TABLET(40 MG) BY MOUTH IN THE MORNING 11/15/23 Yes Perla Askew APRN-EXTENSION CLERK gabapentin (NEURONTIN) 300 mg capsule Take 1 capsule (300 mg total) by mouth in the morning and 1 capsule (300 mg total) before bedtime. Yes Not In System Ref Prov isosorbide mononitrate (IMDUR) 30 mg 24 hr tablet TAKE 1 TABLET(30 MG) BY MOUTH DAILY 01/25/24 Yes Mike Valencia HYPO DIPPER-EXTENSION CLERK metoprolol tartrate (LOPRESSOR) 25 mg tablet Take 0.5 tablets (12.5 mg total) by mouth in the morning and 0.5 tablets (12.5 mg total) before bedtime. Yes Not In System Ref Prov nitroglycerin (NITROSTAT) 0.4 MG SL tablet 1 under the tongue as needed for angina, may repeat q5mins for up three doses 06/27/23 Yes Faviola Gonzalez MD Allergies: Patient has no known allergies. Social History: reports that he has never smoked. He has never used smokeless tobacco. He reports current alcohol use of about 1.0 standard drink of alcohol per week. He reports that he does not use drugs. Family History: Family History Problem Relation Age of Onset Cancer Mother Breast cancer Mother Stroke Father Cancer Sister REVIEW OF SYSTEMS Constitutional: No fevers or chills, no recent weight gain or weight loss or fatigue Eyes: No visual changes or diplopia ENT: No headaches, hearing loss or vertigo Cardiovascular: Per HPI Respiratory: No cough or wheezing, no sputum production, no hematemesis Gastrointestinal: No abdominal pain, no nausea, vomiting, constipation, diarrhea Genitourinary: No dysuria, or hematuria Musculoskeletal: No gait disturbance, weakness or joint complaints Integumentary: No rash or pruritis Neurological: No headache, no prior CVA/TIA Psychiatric: No anxiety, or depression Endocrine: No temperature intolerance Hematologic/Lymphatic: No abnormal bruising or bleeding Vital Signs and Physical Exam: BP 159/63 Pulse (!) 44 Temp 36.8 C (98.2 F) (Oral) Resp 17 Ht 170.2 cm (5' 7 ) Wt 98.4 kg (216 lb 14.9 oz) SpO2 94% BMI 33.98 kg/m No intake or output data in the 24 hours ending 07/16/24 1802 Admission weight: 98.4 kg (216 lb 14.9 oz) Physical Exam PHYSICAL EXAM General appearance: Alert, oriented and cooperative. In [...] noted. Psychiatric: Appropriate mood, memory and judgement. Labs/Imaging: Recent Results (from the past 24 hours) Basic Metabolic Panel Collection Time: 07/16/24 8:43 AM Result Value Ref Range Sodium 141 134 - 146 mmol/L Potassium, Bld 3.6 3.5 - 5.0 mmol/L Chloride 105 98 - 109 mmol/L CO2 27 22 - 32 mmol/L Anion gap 9 5 - 15 mmol/L BUN 14 5 - 27 mg/dL Creatinine 1.39 (H) 0.60 - 1.30 mg/dL Glucose 165 (H) 65 - 99 mg/dL Calcium 8.4 (L) 8.5 - 10.5 mg/dL eGFR (CKD-EPI)non-race dependent 54 (L) >59 ml/min/1.73sq.m CBC without diff Collection Time: 07/16/24 8:43 AM Result Value Ref Range White Blood Cells 8.4 4.0 - 11.0 X10E9/L RBC count 4.16 4.10 - 5.70 X10E12/L Hemoglobin 12.5 (L) 13.0 - 17.0 g/dL Hematocrit 37.7 (L) 39 - 49 % MCV 91 80 - 100 fL MCH 30.1 27 - 34 pg MCHC 33.1 32 - 36 g/dL RDW 14.1 11.5 - 15.0 % Platelets 140 (L) 150 - 450 X10E9/L MPV 10.4 7 - 12 fL Troponin I, High Sensitivity Collection Time: 07/16/24 3:50 PM Result Value Ref Range Troponin I, High Sensitivity 19 <21 ng/L CBC auto differential Collection Time: 07/16/24 3:50 PM Result Value Ref Range White Blood Cells 8.0 4.0 - 11.0 X10E9/L RBC count 4.20 4.10 - 5.70 X10E12/L Hemoglobin 12.9 (L) 13.0 - 17.0 g/dL Hematocrit 37.8 (L) 39 - 49 % MCV 90 80 - 100 fL MCH 30.7 27 - 34 pg MCHC 34.1 32 - 36 g/dL RDW 14.1 11.5 - 15.0 % Platelets 136 (L) 150 - 450 X10E9/L MPV 9.6 7 - 12 fL % neutrophils 44.6 % % lymphocytes 40.4 % % monocytes 12.0 % % eosinophils 2.2 % % Basophils 0.8 % Neutrophils Absolute (A) 3.6 1.5 - 6.6 X10E9/L Lymphocytes Absolute 3.2 1.0 - 3.5 X10E9/L Monocytes Absolute 1.0 (H) 0 - 0.9 X10E9/L Eosinophils Absolute 0.2 0.0 - 0.4 X10E9/L Basophils Absolute 0.1 0.0 - 0.2 X10E9/L Comprehensive metabolic panel Collection Time: 07/16/24 3:50 PM Result Value Ref Range Sodium 142 134 - 146 mmol/L Potassium, Bld 3.8 3.5 - 5.0 mmol/L Chloride 106 98 - 109 mmol/L CO2 26 22 - 32 mmol/L Anion gap 10 5 - 15 mmol/L BUN 14 5 - 27 mg/dL Creatinine 1.44 (H) 0.60 - 1.30 mg/dL Glucose 189 (H) 65 - 99 mg/dL Calcium 8.4 (L) 8.5 - 10.5 mg/dL Total Protein 6.8 6.0 - 8.0 g/dL Albumin 4.2 3.2 - 5.3 g/dL Alkaline Phosphatase 53 39 - 130 U/L AST 42 (H) 0 - 41 U/L ALT 61 (H) 0 - 40 U/L Total bilirubin 0.9 0.3 - 1.2 mg/dL eGFR (CKD-EPI)non-race dependent 52 (L) >59 ml/min/1.73sq.m Lactate w/ Reflex Collection Time: 07/16/24 3:50 PM Result Value Ref Range Lactate w/ Reflex 2.7 (H) 0.4 - 2.0 mmol/L Magnesium Collection Time: 07/16/24 3:50 PM Result Value Ref Range Magnesium 1.9 1.8 - 2.6 mg/dL Protime & INR Collection Time: 07/16/24 3:50 PM Result Value Ref Range Protime 11.8 9.8 - 13.2 sec Inr 1.0 0.9 - 1.2 APTT Collection Time: 07/16/24 3:50 PM Result Value Ref Range aPTT 27 26 - 37 sec B-type natriuretic peptide Collection Time: 07/16/24 3:50 PM Result Value Ref Range BNP 790 (H) <100.0 pg/mL Troponin I, High Sensitivity 1 Hour Collection Time: 07/16/24 4:47 PM Result Value Ref Range 1 Hour Trop I, High Sensitivity 18 <21 ng/L Bedside Glucose *Place/Obtain serum glucose if >500 per glucometer. Collection Time: 07/16/24 5:38 PM Result Value Ref Range Bedside glucose 157 (H) 65 - 99 mg/dL Microbiology Results No results found for the last 168 hours. No results found. ASSESSMENT AND PLAN: Morris Belle is a 74-year-old male with a history of coronary artery disease, apical LAD WING COVERER, hyperlipidemia, and hypertension, presenting with worsening exertional shortness of breath, chest discomfort, and palpitations. He was found to have complete heart block on a Holter monitor and EKG. His coronary CTA showed a distal LAD WING COVERER and moderate RCA stenosis, while his echocardiogram from 2021 revealed mild LVH and pulmonary hypertension. He is scheduled for a pacemaker implant, after which a coronary angiogram will be performed. Beta-blockers will be stopped, but aspirin and statin therapy will continue, and amlodipine will be discontinued due to lower extremity edema. Reviewed the rhythm strips from that test which showed complete heart block. Patient has been in complete heart block for last 2 weeks. patient is on low-dose metoprolol Assessment: 1. Complete AV block. 2. Coronary artery disease, chronic LAD WING COVERER, moderate RCA stenosis with high likelihood of ischemia based on CT- FFR 3. Hypertension 4. Hyperlipidemia Plan: - admit to CCU - EP consulted and recommended to stop Beta-blockers & Amlodipine ( lower limbe edema) - continue aspirin and statin therapy. - Request new echocardiogram. - Prepare to proceed with a pacemaker implant tomorrow morning - Keep him NPO since mid night - Hold Heparin at night - nce the patient recovered from pacemaker implant, coronary angiogram can be performed as outpatient. No evidence of acute coronary syndrome during this visit. DVT prophylaxis: heparin Diet: regular Fluids: None Disposition: TBD Code Status: Full code This note was created with the assistance of a speech-recognition program. Every effort was made to ensure accuracy; however, inadvertent computerized can conveyor feeder errors may be present. Discussed with Dr. Sindy Sutherland Cardiology Attending Estuardo Higginbotham MD - PGY-1 Internal Medicine Resident 07/16/24 6:02 PM Cosigned by Sindy Sutherland MD at 07/16/2024 6:31 PM EDT Associated attestation - Sindy Sutherland MD - 07/16/2024 6:31 PM EDT I, Sindy Sutherland MD, [facility], have personally performed a face to face diagnostic evaluation on this patient. I have reviewed the note authored by the advanced practice provider/resident/fellow and agree with the history of present illness, past medical history, surgical history, social history, family history and review of systems. I have reviewed current medications, and lab values. I have edited the note above to reflect any changes and agree with the assessment and plan. 74-year-old gentleman with history of coronary artery disease and recent abnormal coronary CTA scheduled for outpatient cardiac catheterization 07/22/2024 was found to have complete heart block on Holter monitor and was sent to the ER for evaluation. Currently, he denies chest pain, shortness for breath and palpitations. Denies syncope and presyncope. His heart rate is in the 40s with complete heart block however blood pressure in the 160s. Examination otherwise benign. Patient was evaluated by EP Cardiology earlier today. Plan for permanent pacemaker placement tomorrow morning. Keep patient NPO midnight. Will need cardiac catheterization done as an outpatient which is already scheduled. Avoid AV stephany blocking agents. Telemetry monitoring. Echocardiogram to assess cardiac structure and function. Sindy Sutherland MD, [facility] 07/16/2024 6:29 PM documented in this encounter [facility] 07-16-2024 Plan of care note Problem: Pain Goal: Patient goal is pain score less than 4, able to rest, and participant in treatment plan as appropriate Description: INTERVENTIONS: 1. Encourage patient or legal customer service representative teacher to report early pain and ask for pain medicine when needed 2. Assess pain using appropriate pain scale and include the scale used when documenting 3. Administer analgesics based on type and severity of pain and evaluate response within appropriate time frame 4. Implement non-pharmacological measures as appropriate and evaluate response 5. Consider cultural and social influences on pain and pain management 6. Notify LIP if interventions ineffective or patient reports new pain 7. Monitor vital signs including pulse ox, end-tidal CO2 based on pain intervention 8. Reassess pain per policy 9. Teach patient or legal customer service representative teacher interventions for comforting Note: Patient will continue to be monitored every hour for pain increase and as needed after receiving medications for pain. Problem: Safety Goal: Patient will be injury free during hospitalization Description: INTERVENTIONS: 1. Assess patient's risk for falls and implement fall prevention plan of care per policy 2. Provide and maintain a safe environment 3. Proper use of double Identifiers 4. Medication administration using the 5 rights 5. Hand hygiene 6. Specimens are labeled at the bedside 7. Instruct patient/ patient customer service representative teacher about use of safety devices 8. Include patient/ patient customer service representative teacher in decisions related to safety Note: Patient resting comfortably in bed. Bed in lowest position, wheels locked and call light within reach. Problem: Infection Goal: Absence of infection during hospitalization Description: INTERVENTIONS 1. Assess and monitor for signs and symptoms of infection. 2. Monitor lab/diagnostic results. 3. Monitor all insertion sites i.e., indwelling lines, tubes and drains. 4. Monitor endotracheal (as able) and nasal secretions for changes in amount and color. 5. Administer medications as ordered. 6. Instruct and encourage patient and family to use good hand hygiene technique. 7. Identify and instruct patient/patient customer service representative teacher in use of appropriate isolation precautions for identified infection/symptoms. 8. Provide and discuss with patient/patient customer service representative teacher on educational MDRO sheet. 9. Encourage and monitor nutritional status daily and consult clearance diver if indicated. 10. Implement neutropenic guidelines as needed. Note: Patients vital signs and temperature will remain with in normal limits. Will continue to monitor vital signs hourly and temperature every 4 hours. Problem: Knowledge Deficit Goal: Patient/patient customer service representative teacher demonstrates understanding of disease process, treatment plan, medications, and discharge instructions Description: INTERVENTIONS 1. Complete learning assessment and assess knowledge base 2. Provide teaching at level of understanding 3. Provide teaching via preferred learning method(s) Note: Patient will demonstrate an understanding of disease process, treatment plan, medications and discharge instruction prior to leaving the floor / hospital. Problem: Discharge Planning Goal: Discharge to post-acute care, other facility, or home with appropriate resources Description: Patient's goal is: INTERVENTIONS 1. Conduct assessment to determine patient/family and health care team treatment goals, and need for post-acute services based on payer coverage, community resources, and patient preferences, and barriers to discharge 2. Coordinate with Social work, Care Navigation, and Utilization Review to arrange appropriate level of services according to patient's needs based on patient preference and payer coverage in collaboration with the physician and health care team 3. Address psychosocial, clinical, and financial barriers to discharge as identified in assessment in conjunction with the patient/family and health care team 4. Consult appropriate ancillary services (i.e.. PT/OT/ST, etc) as needed 5. Communicate with and update the patient/family, physician, and health care team regarding progress on the discharge plan 6. Identify discharge learning needs (meds, wound care, etc). 7. Arrange for needed discharge transportation as appropriate Note: Patient plans to be discharged home with . Patient is not ready to be discharged at this time. Patient will continue to be monitored hourly and assessed for readiness to be discharged. Problem: Cardiovascular - Adult Goal: Maintains optimal cardiac output and hemodynamic stability Description: Patient's goal is: INTERVENTIONS: 1. Monitor vital signs, rhythm, and trends 2. Monitor for bleeding, hypotension and signs of decreased cardiac output 3. Administer ordered vasoactive medications to optimize hemodynamic stability 4. Monitor arterial and/or venous puncture sites for bleeding and/or hematoma 5. Assess quality of pulses, skin color and temperature Note: Patient will continue to remain on continuous telemetry until they are discharged from the floor or hospital. [place] [facility] 07-16-2024 Consult note Summary: Cardiac electrophysiology consultation note. Images from the original note were not included. [facility] - Electrophysiology [address] [place] [address] CONSULTATION PATIENT NAME: Morris Belle : 1950 AGE: 74 y.o. Date of Admission: 07/16/2024 Date of Consultation: 07/16/2024 SUBJECTIVE Reason for consultation: Complete AV block. History of Present Illness Morris Belle is a 74 y.o. male with a past medical history of - coronary artery disease, history of LAD WING COVERER - hyperlipidemia - hypertension Patient has been experiencing worsening functional capacity in last few months. Shortness of breath on exertion. Chest discomfort on exertion which improves with the rest. Intermittent lightheadedness and near-syncope. No syncopal episodes. No PND or orthopnea. Mild bilateral lower extremity edema present. Patient wore a monitor on 07/09/2024 which showed complete heart block. Patient was asked to come to ER. Patient is on low-dose metoprolol. EKG in ER consistent with sinus rhythm with a complete AV block and junctional escape rhythm with heart rate in 30s to 40s. Hemodynamically stable. Last echo 2021. Mild concentric LVH. EF 50-55%. Elevated right ventricular systolic pressure with a at least moderate to severe pulmonary hypertension. Coronary CTA. Distal LAD WING COVERER. Moderate stenosis in RCA with high likelihood of lesion specific ischemia. PAST MEDICAL HISTORY Past Medical History: Diagnosis Date Abscess Cataract Chronic pain disorder Colon polyp 2003 Dyslipidemia Edema LE Hoarseness Hypoparathyroidism Joint pain Neuropathy Neuropathy estela feet Obesity PAD (peripheral artery disease) Peripheral polyneuropathy Sinus arrhythmia 06/26/2024 Tailor's bunion Visual impairment SURGICAL HISTORY has a past surgical history that includes Colon surgery; Achilles tendon repair; Bowel resection (2003); Cataract extraction w/ intraocular lens implant (Right, 01/08/2021); Cataract extraction w/ intraocular lens implant (Left, 01/20/2021); Carpal tunnel release (2005); and Cardiac catheterization (N/A, 11/25/2021). SOCIAL HISTORY Social History Socioeconomic History Marital status: Spouse [...] Resource Strain: Low Risk (08/18/2023) Received from [facility] Overall Financial Resource Strain (CARDIA) Difficulty of Paying Living Expenses: Not hard at all Food Insecurity: No Food Insecurity (07/16/2024) Hunger Screening Food Insecurity - Worry: Never True Food Insecurity - Inability: Never True Transportation Needs: No Transportation Needs (08/18/2023) Received from [facility] PRAPARE - Transportation Lack of Transportation (Medical): No Lack of Transportation (Non-Medical): No Physical Activity: Sufficiently Active (08/18/2023) Received from [facility] Exercise Vital Sign Days of Exercise per Week: 3 days Minutes of Exercise per Session: 60 min Stress: No Stress Concern Present (08/18/2023) Received from [facility] [employer] - Occupational Stress Questionnaire Feeling of Stress : Not at all Social Connections: Socially Integrated (08/18/2023) Received from [facility] Social Connection and Isolation Panel [NHANES] Frequency of Communication with Friends and Family: Once a week Frequency of Social Gatherings with Friends and Family: Three times a week Attends Mandaeism Services: More than 4 times per year Active Member of Clubs or Organizations: Yes Attends Club or Organization Meetings: More than 4 times per year Marital Status: Interpersonal Safety: Not on file Housing Instability: Low Risk (08/18/2023) Received from [facility] Housing Stability Vital Sign Unable to Pay for Housing in the Last Year: No Number of Places Lived in the Last Year: 1 Unstable Housing in the Last Year: No FAMILY HISTORY family history includes Breast cancer in his mother; Cancer in his mother and sister; Stroke in his father. MEDICATIONS Prior to Admission medications Medication Sig Start Date End Date Taking? Authorizing Provider acetaminophen (TYLENOL EXTRA STRENGTH) 500 mg tablet Take 1 tablet (500 mg total) by mouth every 6 (six) hours as needed for pain. 12/14/22 Yes Lyndon Gordon MD amLODIPine (NORVASC) 2.5 mg tablet Take 1 tablet (2.5 mg total) by mouth in the morning. 06/26/24 Yes Bonnie Garrido APRN-EXTENSION CLERK aspirin 81 mg Take 1 tablet (81 mg total) by mouth in the morning. 11/18/21 Yes Hubert Tamayo MD atorvastatin (LIPITOR) 40 mg tablet TAKE 1 TABLET(40 MG) BY MOUTH IN THE MORNING 11/15/23 Yes Perla Askew APRN-EXTENSION CLERK gabapentin (NEURONTIN) 300 mg capsule Take 1 capsule (300 mg total) by mouth in the morning and 1 capsule (300 mg total) before bedtime. Yes Not In System Ref Prov isosorbide mononitrate (IMDUR) 30 mg 24 hr tablet TAKE 1 TABLET(30 MG) BY MOUTH DAILY 01/25/24 Yes Mike Valencia, HYPO DIPPER-EXTENSION CLERK metoprolol tartrate (LOPRESSOR) 25 mg tablet Take 0.5 tablets (12.5 mg total) by mouth in the morning and 0.5 tablets (12.5 mg total) before bedtime. Yes Not In System Ref Prov nitroglycerin (NITROSTAT) 0.4 MG SL tablet 1 under the tongue as needed for angina, may repeat q5mins for up three doses 06/27/23 Yes Faviola Gonzalez MD ALLERGIES Patient has no known allergies. REVIEW OF SYSTEMS Constitutional: No fevers or chills, no recent weight gain or weight loss or fatigue Eyes: No visual changes or diplopia ENT: No headaches, hearing loss or vertigo Cardiovascular: Per HPI Respiratory: No cough or wheezing, no sputum production, no hematemesis Gastrointestinal: No abdominal pain, no nausea, vomiting, constipation, diarrhea Genitourinary: No dysuria, or hematuria Musculoskeletal: No gait disturbance, weakness or joint complaints Integumentary: No rash or pruritis Neurological: No headache, no prior CVA/TIA Psychiatric: No anxiety, or depression Endocrine: No temperature intolerance Hematologic/Lymphatic: No abnormal bruising or bleeding OBJECTIVE VITAL SIGNS: BP 174/67 Pulse (!) 42 Temp 36.6 C (97.9 F) (Oral) Resp 24 SpO2 97% ADMIT WEIGHT: BMI: There is no height or weight on file to calculate BMI. Admission PHYSICAL EXAM General appearance: Alert, oriented and cooperative. In [...] noted. Psychiatric: Appropriate mood, memory and judgement. CBC: Results from last 7 days Lab Units 07/16/24 1550 07/16/24 0843 WBC X10E9/L 8.0 8.4 HEMOGLOBIN g/dL 12.9* 12.5* HEMATOCRIT % 37.8* 37.7* MCV fL 90 91 PLATELETS X10E9/L 136* 140* BMP: Results from last 7 days Lab Units 07/16/24 1550 07/16/24 0843 SODIUM mmol/L 142 141 POTASSIUM mmol/L 3.8 3.6 CHLORIDE mmol/L 106 105 CO2 mmol/L 26 27 BUN mg/dL 14 14 CREATININE mg/dL 1.44* 1.39* CALCIUM mg/dL 8.4* 8.4* MAGNESIUM mg/dL 1.9 -- PT/INR: Results from last 7 days Lab Units 07/16/24 1550 PROTIME sec 11.8 INR 1.0 APTT: MAG: Results from last 7 days Lab Units 07/16/24 1550 MAGNESIUM mg/dL 1.9 D Dimer: Troponin I ProBNP Lipid Panel: Lab Results Component Value Date CHOL 128 (L) 08/19/2023 TRIG 141 08/19/2023 HDL 47 08/19/2023 CURRENT MEDICATIONS: fentaNYL, 75 mcg, intravenous, Once midazolam, 1 mg, intravenous, Once CONTINUOUS INFUSIONS: Assessment: 1. Complete AV block. 2. Coronary artery disease, chronic LAD WING COVERER, moderate RCA stenosis with high likelihood of ischemia based on CT- FFR 3. Hypertension 4. Hyperlipidemia Plan: - patient had coronary CTA performed on 07/04/2024. Reviewed the rhythm strips from that test which showed complete heart block. Patient has been in complete heart block for last 2 weeks. - patient is on low-dose metoprolol which is unlikely to be the cause of AV block. - I think majority of his symptoms are related to AV block as well. Patient was able to exercise for more than 30 minutes few months ago. - we will get an echocardiogram. - proceed with a pacemaker implant in a.m.. - once the patient recovered from pacemaker implant, coronary angiogram can be performed as outpatient. No evidence of acute coronary syndrome during this visit. - hold beta-kiko therapy. - okay to continue aspirin and statin therapy. - patient is experiencing lower extremity edema after starting amlodipine. Would recommend to discontinue and use alternative antihypertensive agents. Davie Luna MD Cardiac Electrophysiology [facility] This note was completed using a voice can conveyor feeder system. Every effort was made to ensure accuracy. However, inadvertent computerized can conveyor feeder errors may be present. [employer] 07-16-2024 Consult note Summary: Cardiac electrophysiology consultation note. Images from the original note were not included. [facility] - Electrophysiology [address] [place] [address] CONSULTATION PATIENT NAME: Morris Belle : 1950 AGE: 74 y.o. Date of Admission: 07/16/2024 Date of Consultation: 07/16/2024 SUBJECTIVE Reason for consultation: Complete AV block. History of Present Illness Morris Belle is a 74 y.o. male with a past medical history of - coronary artery disease, history of LAD WING COVERER - hyperlipidemia - hypertension Patient has been experiencing worsening functional capacity in last few months. Shortness of breath on exertion. Chest discomfort on exertion which improves with the rest. Intermittent lightheadedness and near-syncope. No syncopal episodes. No PND or orthopnea. Mild bilateral lower extremity edema present. Patient wore a monitor on 07/09/2024 which showed complete heart block. Patient was asked to come to ER. Patient is on low-dose metoprolol. EKG in ER consistent with sinus rhythm with a complete AV block and junctional escape rhythm with heart rate in 30s to 40s. Hemodynamically stable. Last echo 2021. Mild concentric LVH. EF 50-55%. Elevated right ventricular systolic pressure with a at least moderate to severe pulmonary hypertension. Coronary CTA. Distal LAD WING COVERER. Moderate stenosis in RCA with high likelihood of lesion specific ischemia. PAST MEDICAL HISTORY Past Medical History: Diagnosis Date Abscess Cataract Chronic pain disorder Colon polyp 2003 Dyslipidemia Edema LE Hoarseness Hypoparathyroidism Joint pain Neuropathy Neuropathy estela feet Obesity PAD (peripheral artery disease) Peripheral polyneuropathy Sinus arrhythmia 06/26/2024 Tailor's bunion Visual impairment SURGICAL HISTORY has a past surgical history that includes Colon surgery; Achilles tendon repair; Bowel resection (2003); Cataract extraction w/ intraocular lens implant (Right, 01/08/2021); Cataract extraction w/ intraocular lens implant (Left, 01/20/2021); Carpal tunnel release (2005); and Cardiac catheterization (N/A, 11/25/2021). SOCIAL HISTORY Social History Socioeconomic History Marital status: Spouse [...] Resource Strain: Low Risk (08/18/2023) Received from [facility] Overall Financial Resource Strain (CARDIA) Difficulty of Paying Living Expenses: Not hard at all Food Insecurity: No Food Insecurity (07/16/2024) Hunger Screening Food Insecurity - Worry: Never True Food Insecurity - Inability: Never True Transportation Needs: No Transportation Needs (08/18/2023) Received from [facility] PRAPARE - Transportation Lack of Transportation (Medical): No Lack of Transportation (Non-Medical): No Physical Activity: Sufficiently Active (08/18/2023) Received from [facility] Exercise Vital Sign Days of Exercise per Week: 3 days Minutes of Exercise per Session: 60 min Stress: No Stress Concern Present (08/18/2023) Received from [facility] [employer] - Occupational Stress Questionnaire Feeling of Stress : Not at all Social Connections: Socially Integrated (08/18/2023) Received from [facility] Social Connection and Isolation Panel [NHANES] Frequency of Communication with Friends and Family: Once a week Frequency of Social Gatherings with Friends and Family: Three times a week Attends Mandaeism Services: More than 4 times per year Active Member of Clubs or Organizations: Yes Attends Club or Organization Meetings: More than 4 times per year Marital Status: Interpersonal Safety: Not on file Housing Instability: Low Risk (08/18/2023) Received from [facility] Housing Stability Vital Sign Unable to Pay for Housing in the Last Year: No Number of Places Lived in the Last Year: 1 Unstable Housing in the Last Year: No FAMILY HISTORY family history includes Breast cancer in his mother; Cancer in his mother and sister; Stroke in his father. MEDICATIONS Prior to Admission medications Medication Sig Start Date End Date Taking? Authorizing Provider acetaminophen (TYLENOL EXTRA STRENGTH) 500 mg tablet Take 1 tablet (500 mg total) by mouth every 6 (six) hours as needed for pain. 12/14/22 Yes Lyndon Gordon MD amLODIPine (NORVASC) 2.5 mg tablet Take 1 tablet (2.5 mg total) by mouth in the morning. 06/26/24 Yes Bonnie Garrido APRN-EXTENSION CLERK aspirin 81 mg Take 1 tablet (81 mg total) by mouth in the morning. 11/18/21 Yes Hubert Tamayo MD atorvastatin (LIPITOR) 40 mg tablet TAKE 1 TABLET(40 MG) BY MOUTH IN THE MORNING 11/15/23 Yes Perla Askew APRN-EXTENSION CLERK gabapentin (NEURONTIN) 300 mg capsule Take 1 capsule (300 mg total) by mouth in the morning and 1 capsule (300 mg total) before bedtime. Yes Not In System Ref Prov isosorbide mononitrate (IMDUR) 30 mg 24 hr tablet TAKE 1 TABLET(30 MG) BY MOUTH DAILY 01/25/24 Yes Mike Valencia APRN-EXTENSION CLERK metoprolol tartrate (LOPRESSOR) 25 mg tablet Take 0.5 tablets (12.5 mg total) by mouth in the morning and 0.5 tablets (12.5 mg total) before bedtime. Yes Not In System Ref Prov nitroglycerin (NITROSTAT) 0.4 MG SL tablet 1 under the tongue as needed for angina, may repeat q5mins for up three doses 06/27/23 Yes Faviola Gonzalez MD ALLERGIES Patient has no known allergies. REVIEW OF SYSTEMS Constitutional: No fevers or chills, no recent weight gain or weight loss or fatigue Eyes: No visual changes or diplopia ENT: No headaches, hearing loss or vertigo Cardiovascular: Per HPI Respiratory: No cough or wheezing, no sputum production, no hematemesis Gastrointestinal: No abdominal pain, no nausea, vomiting, constipation, diarrhea Genitourinary: No dysuria, or hematuria Musculoskeletal: No gait disturbance, weakness or joint complaints Integumentary: No rash or pruritis Neurological: No headache, no prior CVA/TIA Psychiatric: No anxiety, or depression Endocrine: No temperature intolerance Hematologic/Lymphatic: No abnormal bruising or bleeding OBJECTIVE VITAL SIGNS: BP 174/67 Pulse (!) 42 Temp 36.6 C (97.9 F) (Oral) Resp 24 SpO2 97% ADMIT WEIGHT: BMI: There is no height or weight on file to calculate BMI. Admission PHYSICAL EXAM General appearance: Alert, oriented and cooperative. In [...] noted. Psychiatric: Appropriate mood, memory and judgement. CBC: Results from last 7 days Lab Units 07/16/24 1550 07/16/24 0843 WBC X10E9/L 8.0 8.4 HEMOGLOBIN g/dL 12.9* 12.5* HEMATOCRIT % 37.8* 37.7* MCV fL 90 91 PLATELETS X10E9/L 136* 140* BMP: Results from last 7 days Lab Units 07/16/24 1550 07/16/24 0843 SODIUM mmol/L 142 141 POTASSIUM mmol/L 3.8 3.6 CHLORIDE mmol/L 106 105 CO2 mmol/L 26 27 BUN mg/dL 14 14 CREATININE mg/dL 1.44* 1.39* CALCIUM mg/dL 8.4* 8.4* MAGNESIUM mg/dL 1.9 -- PT/INR: Results from last 7 days Lab Units 07/16/24 1550 PROTIME sec 11.8 INR 1.0 APTT: MAG: Results from last 7 days Lab Units 07/16/24 1550 MAGNESIUM mg/dL 1.9 D Dimer: Troponin I ProBNP Lipid Panel: Lab Results Component Value Date CHOL 128 (L) 08/19/2023 TRIG 141 08/19/2023 HDL 47 08/19/2023 CURRENT MEDICATIONS: fentaNYL, 75 mcg, intravenous, Once midazolam, 1 mg, intravenous, Once CONTINUOUS INFUSIONS: Assessment: 1. Complete AV block. 2. Coronary artery disease, chronic LAD WING COVERER, moderate RCA stenosis with high likelihood of ischemia based on CT- FFR 3. Hypertension 4. Hyperlipidemia Plan: - patient had coronary CTA performed on 07/04/2024. Reviewed the rhythm strips from that test which showed complete heart block. Patient has been in complete heart block for last 2 weeks. - patient is on low-dose metoprolol which is unlikely to be the cause of AV block. - I think majority of his symptoms are related to AV block as well. Patient was able to exercise for more than 30 minutes few months ago. - we will get an echocardiogram. - proceed with a pacemaker implant in a.m.. - once the patient recovered from pacemaker implant, coronary angiogram can be performed as outpatient. No evidence of acute coronary syndrome during this visit. - hold beta-kiko therapy. - okay to continue aspirin and statin therapy. - patient is experiencing lower extremity edema after starting amlodipine. Would recommend to discontinue and use alternative antihypertensive agents. Davie Luna MD Cardiac Electrophysiology [facility] This note was completed using a voice can conveyor feeder system. Every effort was made to ensure accuracy. However, inadvertent computerized can conveyor feeder errors may be present. documented in this encounter [facility] 07-16-2024 Emergency department Triage note PT to ED today via private vehicle endorsing slow heart rate. PT states they were at their film developing machine operator earlier who referred them to us for pacemaker placement. Upon arrival to triage pt was noted to be in third degree heart block. Brought to T4, placed on Dr Vicenta jennings and Dr Batista Bedside at time of triage [facility] 07-16-2024 Emergency department Note PT to ED today via private vehicle endorsing slow heart rate. PT states they were at their film developing machine operator earlier who referred them to us for pacemaker placement. Upon arrival to triage pt was noted to be in third degree heart block. Brought to T4, placed on Dr Vicenta jennings and Dr Batista Bedside at time of triage documented in this encounter [facility] 07-16-2024 Miscellaneous Notes We received results that showed pt was in CHB. Dicussed with MOB and she reviewed strips and needs pt to go to the [facility] ER. Called pt with results spoke with him and . will drive the pt to the ER.slm documented in this encounter [facility] 07-16-2024 Telephone encounter Note We received results that showed pt was in CHB. Dicussed with MOB and she reviewed strips and needs pt to go to the [facility] ER. Called pt with results spoke with him and . will drive the pt to the ER.slm [facility] 07-16-2024 Miscellaneous Notes Received order from Ciara at the [place] office. Patient scheduled for cath on 07/30/24 at 8:30 am at [facility] with [facility]. Notified Ciara. No Covid test required at this time. documented in this encounter [facility] 07-16-2024 Telephone encounter Note Received order from Ciara at the [place] office. Patient scheduled for cath on 07/30/24 at 8:30 am at [facility] with [facility]. Notified Ciara. No Covid test required at this time. [facility] 07-16-2024 History of Present illness Narrative Morris Belle Date of visit: 07/16/2024 Date of : 1950 Age: 74 y.o. 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 30 tablet 0 amLODIPine (NORVASC) 2.5 mg tablet Take 1 tablet (2.5 mg total) by mouth in the morning. 90 tablet 3 aspirin 81 mg Take 1 tablet (81 mg total) by mouth in the morning. 2 tablet 0 atorvastatin (LIPITOR) 40 mg tablet TAKE 1 TABLET(40 MG) BY MOUTH IN THE MORNING 90 tablet 3 gabapentin (NEURONTIN) 300 mg capsule Take 1 capsule (300 mg total) by mouth in the morning and 1 capsule (300 mg total) before bedtime. isosorbide mononitrate (IMDUR) 30 mg 24 hr tablet TAKE 1 TABLET(30 MG) BY MOUTH DAILY 90 tablet 1 nitroglycerin (NITROSTAT) 0.4 MG SL tablet 1 under the tongue as needed for angina, may repeat q5mins for up three doses 25 tablet 11 metoprolol succinate XL (TOPROL XL) 25 mg 24 hr tablet Take 0.5 tablets (12.5 mg total) by mouth in the morning. 90 tablet 3 No current facility-administered medications for this visit. Chief Complaint Patient presents with Follow-up EST PT EARLY FU ABN CTA, POSSIBLE CATH, SCHED W/PT History of Present Illness 74-year-old male with coronary artery disease non distal to apical LAD WING COVERER is here in follow-up. Has been having exertional shortness of breath since FebruaryMarch 2024 was significant worsening of his functional capacity tells me that he used to do 30 minute on a treadmill without issue and now he can not do more than 14 minutes at the gym. His symptoms back in 2021 when he had his left heart catheterization was chest discomfort. A goal he has chronic headaches for over a year that I do not think are related to Imdur Past Medical History: Diagnosis Date Abscess Cataract Chronic pain disorder Colon polyp 2003 Dyslipidemia Edema LE Hoarseness Hypoparathyroidism Joint pain Neuropathy Neuropathy estela feet Obesity PAD (peripheral artery disease) Peripheral polyneuropathy Sinus arrhythmia 06/26/2024 Tailor's bunion Visual impairment No data recorded No data recorded No data recorded Past Surgical History: Procedure Laterality Date ACHILLES TENDON REPAIR BOWEL RESECTION 2003 large colon resection Cardiac catheterization - CORS + LV GRAM/PRESS (95997) N/A 11/25/2021 Performed by Savannah Ribeiro MD at [facility] CARDIAC CATH LABS CARPAL TUNNEL RELEASE 2005 COLON SURGERY EXTRACTION CATARACT INTRAOCULAR LENS Left 01/20/2021 Performed by Gage Ramírez MD at [facility] EXTRACTION CATARACT INTRAOCULAR LENS Right 01/08/2021 Performed by Gage Ramírez MD at [facility] Family History Problem Relation Age of [...] Resource Strain: Low Risk (08/18/2023) Received from [facility] Overall Financial Resource Strain (CARDIA) Difficulty of Paying Living Expenses: Not hard at all Food Insecurity: No Food Insecurity (07/16/2024) Hunger Screening Food Insecurity - Worry: Never True Food Insecurity - Inability: Never True Transportation Needs: No Transportation Needs (08/18/2023) Received from [facility] PRAPARE - Transportation Lack of Transportation (Medical): No Lack of Transportation (Non-Medical): No Physical Activity: Sufficiently Active (08/18/2023) Received from [facility] Exercise Vital Sign Days of Exercise per Week: 3 days Minutes of Exercise per Session: 60 min Stress: No Stress Concern Present (08/18/2023) Received from [facility] [employer] [place] - Occupational Stress Questionnaire Feeling of Stress : Not at all Social Connections: Socially Integrated (08/18/2023) Received from [facility] Social Connection and Isolation Panel [NHANES] Frequency of Communication with Friends and Family: Once a week Frequency of Social Gatherings with Friends and Family: Three times a week Attends Mandaeism Services: More than 4 times per year Active Member of Clubs or Organizations: Yes Attends Club or Organization Meetings: More than 4 times per year Marital Status: Interpersonal Safety: Not on file Housing Instability: Low Risk (08/18/2023) Received from [facility] Housing Stability Vital Sign Unable to Pay for Housing in the Last Year: No Number of Places Lived in the Last Year: 1 Unstable Housing in the Last Year: No Review of Systems Review of Systems Constitutional: Negative. HENT: Positive for hoarse voice. Eyes: Negative. Cardiovascular: Positive for chest pain. Respiratory: Positive for cough and shortness of breath. Endocrine: Negative. Hematologic/Lymphatic: Negative. Skin: Negative. Musculoskeletal: Positive for back pain and joint swelling. Gastrointestinal: Negative. Genitourinary: Negative. Neurological: Positive for dizziness, loss of balance and numbness. Psychiatric/Behavioral: Negative. [...] mood, memory and judgement. VITAL SIGNS: BP 106/62 Pulse (!) 42 Ht 170.2 cm (5' 7.01 ) Wt 96.6 kg (213 lb) SpO2 94% BMI 33.35 kg/m Orders Placed or Reconciled This Encounter Medications metoprolol succinate XL (TOPROL XL) 25 mg 24 hr tablet Sig: Take 0.5 tablets (12.5 mg total) by mouth in the morning. Dispense: 90 tablet Refill: 3 Medications Discontinued During This Encounter Medication Reason metoprolol tartrate (LOPRESSOR) 25 mg tablet Alternate therapy IMPRESSIONS/PLAN 1. Coronary artery disease of [place] artery of [place] heart with stable angina pectoris - metoprolol succinate XL (TOPROL XL) 25 mg 24 hr tablet; Take 0.5 tablets (12.5 mg total) by mouth in the morning. Dispense: 90 tablet; Refill: 3 - CBC; Future - Basic Metabolic Panel; Future 2. KIM (dyspnea on exertion) - Echo complete W/O contrast; Future - CBC; Future - Basic Metabolic Panel; Future Exertional dyspnea with decreased functional capacity concern for unstable angina equivalent Abnormal CTA coronaries with concern of obstructive RCA disease CAD - WING COVERER distal to apical LAD with collaterals, nonobstructive disease elsewhere on [facility] 11/2021. Resolved angina, has good functional capacity. Normal LV function Nonrheumatic moderate TR, RVSP 50 mm Hg TTE 11/2021 Hyperlipidemia LDL 53 Diabetes type 2 with A1c of 7.0% not on any medication Hypothyroidism PAD, felt mild, previously evaluated by vascular Obesity with BMI 33 Chronic headaches, unilateral more consistent with migraines rather than Imdur side effect Asymptomatic sinus bradycardia --- symptoms concerning for unstable angina with abnormal see CTA we will proceed with left heart catheterization to further evaluate. -- decrease Toprol to 12.5 mg daily continue current dose of Imdur I would not up titrate his antianginals in the absence of chest pain especially with the his baseline chronic headaches and bradycardia. Get an echocardiogram Continue current meds and strongly encouraged to treat his newly diagnosed diabetes - CARLOS ENRIQUE SEE MD 07/16/24 8:47 AM -- TODAYS ORDERS Orders Placed This Encounter Procedures CBC Basic Metabolic Panel Echo complete W/O contrast FOLLOW UP No follow-ups on file. PCP: TARAS WRIGHT MD Referring Physician: Taras Wright MD [address] [place] [address] documented in this encounter [facility] 07-04-2024 Miscellaneous Notes Called Morris regarding the screening colonoscopy referral that our office received from Morris Ash wants to wait until after he has is testing done today, will call back possibly next week to schedule. documented in this encounter [facility] 07-04-2024 Telephone encounter Note Called Morris regarding the screening colonoscopy referral that our office received from Morris Ash wants to wait until after he has is testing done today, will call back possibly next week to schedule. [facility] 07-03-2024 History of Present illness Narrative Associated Problem(s): Type 2 diabetes mellitus with hyperglycemia, without long-term current use of insulin ([facility]) Not checking BS and due for A1C. Stick to ADA diet and limit carbs. Associated Problem(s): Small fiber polyneuropathy Pain stable and continue neurontin. Associated Problem(s): Chronic rhinosinusitis Symptoms improved and monitor. If worsen can refer to ENT. Associated Problem(s): CAD in [place] artery ([facility]) Increased pain and follow with cardiology for testing. Images from the original note were not included. Subjective Patient ID: Morris Belle is a 74 y.o. male who presents for Follow-up (6w ). Follow up DM, neuropathy, sinusitis, and CAD. Not checking BS away from office. Trying to stick to ADA diet and limit carbs. Denies signs of elevated BS such as polyuria, polyphagia or polydipsia. Neuropathy unchanged. Continues to have numbness and pain in feet and fingers. Using neurontin and helps. Occasional burning and worse QHS. Pain increased with walking and standing. Loss of sensation getting worse and not able to feel feet. Overall feels like symptoms tolerable. Recent chest pain and increased fatigue with exercise. Seen by cardiology and CT coronary artery ordered. Took 30 days of augmentin and sinus symptoms much improved. Not as much congestion or sinus pressure. Continues to have occasional JONES. Continues to have rhinorrhea. Review of Systems Constitutional: Negative for fatigue. Respiratory: Negative for cough, shortness of breath and wheezing. Cardiovascular: Negative for chest pain and palpitations. Gastrointestinal: Negative for abdominal pain, diarrhea, nausea and vomiting. Genitourinary: Negative for dysuria. Objective Physical Exam Constitutional: General: He is not in acute distress. Appearance: Normal appearance. HENT: Head: Normocephalic. Right Ear: Tympanic membrane and ear canal normal. Left Ear: Tympanic membrane and ear canal normal. Eyes: Extraocular Movements: Extraocular movements intact. Pupils: Pupils are equal, round, and reactive to light. Cardiovascular: Rate and Rhythm: Normal rate and regular rhythm. Heart sounds: No murmur heard. No friction rub. No gallop. Pulmonary: Breath sounds: Normal breath sounds. No wheezing, rhonchi or rales. Abdominal: General: Bowel sounds are normal. There is no distension. Palpations: Abdomen is soft. Tenderness: There is no abdominal tenderness. There is no guarding or rebound. Musculoskeletal: Left lower leg: No edema. Neurological: Mental Status: He is alert. Assessment/Plan Problem List Items Addressed This Visit CAD in [place] artery (CMS/HCC) Increased pain and follow with cardiology for testing. Chronic rhinosinusitis Symptoms improved and monitor. If worsen can refer to ENT. Type 2 diabetes mellitus with hyperglycemia, without long-term current use of insulin ([facility]) - Primary Not checking BS and due for A1C. Stick to ADA diet and limit carbs. Relevant Orders Hemoglobin A1c Small fiber polyneuropathy Pain stable and continue neurontin. Other Visit Diagnoses Colon cancer screening Relevant Orders Ambulatory referral to General Surgery documented in this encounter [facility] 06-26-2024 History of Present illness Narrative Morris Keith Yoshi Date of visit: 06/26/2024 Date of : 1950 Age: 74 y.o. 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 30 tablet 0 aspirin 81 mg Take 1 tablet (81 mg total) by mouth in the morning. 2 tablet 0 atorvastatin (LIPITOR) 40 mg tablet TAKE 1 TABLET(40 MG) BY MOUTH IN THE MORNING 90 tablet 3 gabapentin (NEURONTIN) 300 mg capsule Take 1 capsule (300 mg total) by mouth in the morning and 1 capsule (300 mg total) before bedtime. isosorbide mononitrate (IMDUR) 30 mg 24 hr tablet TAKE 1 TABLET(30 MG) BY MOUTH DAILY 90 tablet 1 metoprolol tartrate (LOPRESSOR) 25 mg tablet TAKE 1 TABLET BY MOUTH IN THE MORNING AND 1 TABLET BEFORE BEDTIME 180 tablet 3 nitroglycerin (NITROSTAT) 0.4 MG SL tablet 1 under the tongue as needed for angina, may repeat q5mins for up three doses 25 tablet 11 No current facility-administered medications for this visit. Chief Complaint Patient presents with Follow-up OV F/U 1 YR NO TESTS L/S TMP, SCHED W/PT History of Present Illness BZ is a 74 yo M who presents to the office today for his annual visit. He has a hx of CAD, PVD, sinus arrhythmia, DMII. LHC in 2021 showed WING COVERER of apical LAD. TTE from 2021 had EF 50-55% with hypokinetic basal inferoseptal wall and apex. Lipid panel from 10 months has LDL 53, HDL 47. EKG today shows SR with PACs; previous EKG has shown sinus arrhythmia. He previously had CP and an abnormal stress test, leading to his LHC in 2021. Today, he has had increased SOB the past month with new CP in an area different than where he previously experienced it. He has noticed his CP and SOB when he tries to work out at the gym. However, he has had a low grade headache since August. He also has had a sinus infection since Apr and has finished his third round of antibiotics. Patient was seen when Dr. Ulloa was readily available in office. Past Medical History: Diagnosis Date Abscess Cataract Chronic pain disorder Colon polyp 2003 Dyslipidemia Edema LE Hoarseness Hypoparathyroidism ([facility]) Joint pain Neuropathy Neuropathy estela feet Obesity PAD (peripheral artery disease) ([facility]) Peripheral polyneuropathy Sinus arrhythmia 06/26/2024 Tailor's bunion Visual impairment No data recorded No data recorded No data recorded Past Surgical History: Procedure Laterality Date ACHILLES TENDON REPAIR BOWEL RESECTION 2003 large colon resection Cardiac catheterization - CORS + LV GRAM/PRESS (19873) N/A 11/25/2021 Performed by Savannah Ribeiro MD at [facility] CARDIAC CATH LABS CARPAL TUNNEL RELEASE 2005 COLON SURGERY EXTRACTION CATARACT INTRAOCULAR LENS Left 01/20/2021 Performed by Gage Ramírez MD at [facility] EXTRACTION CATARACT INTRAOCULAR LENS Right 01/08/2021 Performed by Gage Ramírez MD at [facility] Family History Problem Relation Age of [...] Resource Strain: Low Risk (08/18/2023) Received from [facility] Overall Financial Resource Strain (CARDIA) Difficulty of Paying Living Expenses: Not hard at all Food Insecurity: No Food Insecurity (06/26/2024) Hunger Screening Food Insecurity - Worry: Never True Food Insecurity - Inability: Never True Transportation Needs: No Transportation Needs (08/18/2023) Received from [facility] PRAPARE - Transportation Lack of Transportation (Medical): No Lack of Transportation (Non-Medical): No Physical Activity: Sufficiently Active (08/18/2023) Received from [facility] Exercise Vital Sign Days of Exercise per Week: 3 days Minutes of Exercise per Session: 60 min Stress: No Stress Concern Present (08/18/2023) Received from [facility] [employer] [place] [employer] - Occupational Stress Questionnaire Feeling of Stress : Not at all Social Connections: Socially Integrated (08/18/2023) Received from [facility] Social Connection and Isolation Panel [NHANES] Frequency of Communication with Friends and Family: Once a week Frequency of Social Gatherings with Friends and Family: Three times a week Attends Mandaeism Services: More than 4 times per year Active Member of Clubs or Organizations: Yes Attends Club or Organization Meetings: More than 4 times per year Marital Status: Interpersonal Safety: Not on file Housing Instability: Low Risk (08/18/2023) Received from [facility] Housing Stability Vital Sign Unable to Pay for Housing in the Last Year: No Number of Places Lived in the Last Year: 1 Unstable Housing in the Last Year: No Review of Systems Review of Systems Constitutional: Positive for malaise/fatigue. HENT: Negative. Eyes: Negative. Cardiovascular: Negative. Respiratory: Positive for shortness of breath. Endocrine: Negative. Hematologic/Lymphatic: Negative. Skin: Negative. Musculoskeletal: Negative. Gastrointestinal: Negative. Genitourinary: Negative. Neurological: Negative. Psychiatric/Behavioral: Negative. Allergic/Immunologic: Positive for environmental allergies. [...] mood, memory and judgement. VITAL SIGNS: BP 148/90 Pulse 70 Ht 170.2 cm (5' 7.01 ) Wt 92.5 kg (204 lb) SpO2 96% BMI 31.94 kg/m No orders of the defined types were placed in this encounter. There are no discontinued medications. IMPRESSIONS/PLAN 1. Coronary artery disease of [place] artery of [place] heart with stable angina pectoris ([facility]) - POCT EKG 2. Peripheral vascular disease, unspecified ([facility]) 3. Type 2 diabetes mellitus with diabetic polyneuropathy, without long-term current use of insulin ([facility]) 4. 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 If no new findings, would like to stop imdur to make sure that's not causing his headaches. NO ADDITIONAL BETABLOCKER FOR CTA HR IS IN THE 50S TODAY BP is elevated, could be from the headache. Will start low dose amlodipine. LDL from 10 months ago was 53, HDL 47. EKG today showed SR with PACs, has hx of sinus arrhythmia Will order monitor to quantify burden. May complete after CTA of cores. Recommend follow up in 4 weeks May benefit from WING COVERER clinic visit. TODAYS ORDERS Orders Placed This Encounter Procedures POCT EKG FOLLOW UP No follow-ups on file. PCP: TARAS WRIGHT MD Referring Physician: Taras Wright MD [address] [place] [address] MYRNA Thompson 06/26/24 0930 MYRNA Thompson 06/26/24 0932 documented in this encounter [facility] 06-26-2024 Instructions MYRNA Thompson - 06/26/2024 9:00 AM EDT Start low dose amlodipine 2.5 mg once a day Complete cardiac CTA If your CTA doesn't show anything new, we will stop imdur. You can complete your holter monitor after the scan so you aren't overburdened with testing Would like to see you back in 4 weeks. documented in this encounter [facility] 06-25-2024 Miscellaneous Notes Called patient to remind them to bring their most current copy of their medication list with them to their appt. Patient verbalizes understanding. documented in this encounter [facility] 06-25-2024 Telephone encounter Note Called patient to remind them to bring their most current copy of their medication list with them to their appt. Patient verbalizes understanding. [facility] 05-22-2024 History of Present illness Narrative Associated Problem(s): Medicare annual wellness visit, subsequent Reviewed labs. Discussed proper diet and regular aerobic exercise. Need aerobic exercise 5-6 days a week for 30 minutes at a time. Smaller portions and limit total calories. Colonoscopy every 10 years. Tetanus every 10 years. Advised not to smoke. Associated Problem(s): Chronic rhinosinusitis Treat with augmentin x 30 days. Resume flonase daily. If no improvement will refer to ENT. Images from the original note were not included. Subjective Patient ID: Morris Belle is a 74 y.o. male who presents for Medicare Annual Wellness Visit Subsequent (wellness) and Sinusitis (Ongoing for a month). Presents for medicare annual wellness visit. Patient stable today. Weight unchanged over the past year. Remains active and tries to exercise several days a week. Tries to watch diet and eat healthy. Increased fruits and vegetables. Smaller portions and limits snacking. Tries to limit total daily calories. Reviewed labs. Continues to c/o sinus symptoms. Congestion and postnasal drip for months. JONES and sinus pressure in forehead and cheeks. Ears plugged and popping. Severe congestion and worse end of day. Ears plugged and popping. Treated with levaquin and prednisone last month and no change. Seen by ENT years ago and told normal exam. CT sinuses in March with mild thickening of maxillary sinus and right deviated septum. Review of Systems Constitutional: Negative for fatigue. Respiratory: Negative for cough, shortness of breath and wheezing. Cardiovascular: Negative for chest pain and palpitations. Gastrointestinal: Negative for abdominal pain, diarrhea, nausea and vomiting. Genitourinary: Negative for dysuria. Objective Physical Exam Constitutional: General: He is not in acute distress. Appearance: Normal appearance. HENT: Head: Normocephalic. Right Ear: Tympanic membrane and ear canal normal. Left Ear: Tympanic membrane and ear canal normal. Eyes: Extraocular Movements: Extraocular movements intact. Pupils: Pupils are equal, round, and reactive to light. Cardiovascular: Rate and Rhythm: Normal rate and regular rhythm. Heart sounds: No murmur heard. No friction rub. No gallop. Pulmonary: Breath sounds: Normal breath sounds. No wheezing, rhonchi or rales. Abdominal: General: Bowel sounds are normal. There is no distension. Palpations: Abdomen is soft. Tenderness: There is no abdominal tenderness. There is no guarding or rebound. Musculoskeletal: General: Normal range of motion. Left lower leg: No edema. Neurological: General: No focal deficit present. Mental Status: He is alert. Cranial Nerves: No cranial nerve deficit. Deep Tendon Reflexes: Reflexes normal. Assessment/Plan Problem List Items Addressed This Visit Chronic rhinosinusitis Treat with augmentin x 30 days. Resume flonase daily. If no improvement will refer to ENT. Relevant Medications amoxicillin-clavulanate (Augmentin) 875-125 MG tablet Peripheral arterial disease ([facility]) Type 2 diabetes mellitus with hyperglycemia, without long-term current use of insulin ([facility]) Small fiber polyneuropathy Medicare annual wellness visit, subsequent - Primary Reviewed labs. Discussed proper diet and regular aerobic exercise. Need aerobic exercise 5-6 days a week for 30 minutes at a time. Smaller portions and limit total calories. Colonoscopy every 10 years. Tetanus every 10 years. Advised not to smoke. Other Visit Diagnoses Type 2 diabetes mellitus with other specified complication ([facility]) Hyperlipidemia, unspecified ([facility]) Type 2 diabetes mellitus with diabetic peripheral angiopathy without gangrene ([facility]) documented in this encounter [facility] 04-24-2024 History of Present illness Narrative Associated Problem(s): Acute non-recurrent pansinusitis Take antibiotics for 7 days. Use prednisone [...] if no better or worse call for re-evaluation. Images from the original note were not included. Subjective Patient ID: Morris Belle is a 74 y.o. male who presents for Follow-up (Sinus infection/). C/o cough, congestion, and rhinorrhea for 1 week. Afebrile but often hot and sweaty. Severe fatigue and no energy. Mild cough dry and nonproductive. Denies chest tightness or SOB. JONES and sinus pressure in forehead and cheeks along with postnasal drip. Ears plugged and popping. Sore throat and pain to swallow. Mild nausea. Son recently sick. Using OTC medication and mild relief. No improvement in symptoms since onset. Review of Systems Constitutional: Negative for fatigue. Respiratory: Negative for cough, shortness of breath and wheezing. Cardiovascular: Negative for chest pain and palpitations. Gastrointestinal: Negative for abdominal pain, diarrhea, nausea and vomiting. Genitourinary: Negative for dysuria. Objective Physical Exam Constitutional: General: He is not in acute distress. Appearance: Normal appearance. HENT: Head: Normocephalic. Ears: Comments: Bilateral TM clear but bulging with fluid Eyes: Extraocular Movements: Extraocular movements intact. Pupils: Pupils are equal, round, and reactive to light. Cardiovascular: Rate and Rhythm: Normal rate and regular rhythm. Heart sounds: No murmur heard. No friction rub. No gallop. Pulmonary: Breath sounds: Normal breath sounds. No wheezing, rhonchi or rales. Abdominal: General: Bowel sounds are normal. There is no distension. Palpations: Abdomen is soft. Tenderness: There is no abdominal tenderness. There is no guarding or rebound. Musculoskeletal: Left lower leg: No edema. Neurological: Mental Status: He is alert. Assessment/Plan Problem List Items Addressed This Visit Acute non-recurrent pansinusitis - Primary Take antibiotics for 7 days. Use prednisone [...] if no better or worse call for re-evaluation. Relevant Medications levoFLOXacin (Levaquin) 750 MG tablet predniSONE (Deltasone) 50 MG tablet documented in this encounter [facility] 04-20-2024 History of Present illness Narrative Images from the original note were not included. NAME: Morris Belle CLINIC NO.: [id number] DATE OF SERVICE: April 20, 2024 Some elements in this clinic note that are critical to medical decision making have been carefully reviewed and included from a prior clinic note dated: April 15, 2023 (Bhupendra) Referring Provider: Taras Wright Additional Clinicians involved in Morris Belle's care: DIAGNOSIS: MGUS ASSESSMENT: 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 No signs of hypercalcemia, renal failure, anemia, bony lesions. M-protein is low at 0.49 IgG kappa and K/L ratio is stable. Very unlikely his neuropathy is paraprotein related. IgM was normal. Will monitor Neuropathy: No change in neuropathy, no obvious cause. URI: following with PCP PLAN: Labs 1 week prior to return RTC 1 year HPI: Updated Visit, April 20, 2024: Sinus congestion and cough. Morning it is green but as day goes on it clears. No fevers. Waiting to hear from PCP Belkis. Toes remain without feeling. No pain. It hasn't progressed. He has no new pain, fatigue or weight loss. He is trying to lose weight. Updated Visit, April 15, 2023: No real [...] his right leg. 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 REVIEW OF SYSTEMS Per HPI and otherwise negative by full review of organ systems. ECOG PERFORMANCE STATUS: 0 PHYSICAL EXAMINATION: Vitals: BP 126/58 Pulse 53 Temp (Src) 97.3 (Temporal) Resp 16 Ht 5' 5.984 (1.68m) Wt 206 lb 2.1 oz (93.5kg) SpO2 95% BMI 33.29 kg/(m^2). Body surface area is 2.09 meters squared. General: Alert and oriented, no distress, pleasant and cooperative. Heart: Regular, normal S1 and S2, no murmurs, rubs, or gallops Lungs: Clear to auscultation bilaterally Abdomen: Benign Extremities: Feet/ankles without edema, posterior tibial pulses full and symmetrical ALLERGIES: ALLERGIES No Known Allergies MEDICATIONS: aspirin, [...] mg by mouth twice daily. LABORATORY VALUES: WBC (k/uL) Date Value 04/13/2024 8.26 RBC (m/uL) Date Value 04/13/2024 4.29 Hemoglobin (g/dL) Date Value 04/13/2024 13.6 Hematocrit (%) Date Value 04/13/2024 39.2 MCV (fL) Date Value 04/13/2024 91.4 MCH (pg) Date Value 04/13/2024 31.7 MCHC (g/dL) Date Value 04/13/2024 34.7 RDW-CV (%) Date Value 04/13/2024 12.6 Platelet Count (k/uL) Date Value 04/13/2024 190 MPV (fL) Date Value 04/13/2024 10.8 Glucose (mg/dL) Date Value 04/13/2024 162 (H) BUN (mg/dL) Date Value 04/13/2024 14 Creatinine (mg/dL) Date Value 04/13/2024 1.19 Sodium (mmol/L) Date Value 04/13/2024 140 Potassium (mmol/L) Date Value 04/13/2024 4.2 Chloride (mmol/L) Date Value 04/13/2024 101 CO2 (mmol/L) Date Value 04/13/2024 28 Protein, Total (g/dL) Date Value 04/13/2024 7.4 04/13/2024 7.6 Albumin (g/dL) Date Value 04/13/2024 4.5 Calcium, Total (mg/dL) Date Value 04/13/2024 8.5 Alkaline Phosphatase (U/L) Date Value 04/13/2024 70 Bilirubin, Total (mg/dL) Date Value 04/13/2024 0.7 AST (U/L) Date Value 04/13/2024 30 ALT (U/L) Date Value 04/13/2024 33 Cholesterol, Total (mg/dL) Date Value 04/17/2021 207 (H) Triglyceride (mg/dL) Date Value 04/17/2021 102 M-Protein Concentration Date Value 04/13/2024 0.49 g/dL 04/08/2023 0.44 g/dL 04/09/2022 0.31 g/dL 04/17/2021 0.28 gm/dL 04/16/2020 0.26 gm/dL 04/25/2019 0.26 gm/dL 04/13/2018 0.21 gm/dL 06/20/2017 0.27 gm/dL DIAGNOSIS: (D47.2) MGUS (monoclonal gammopathy of unknown significance) (primary encounter diagnosis) Plan: LACTATE DEHYDROGENASE, COMPREHENSIVE METABOLIC PANEL, COMPLETE BLOOD COUNT AND DIFFERENTIAL, MYELOPROLIFERATIVE NEOPLASM PANEL BLOOD, IMMUNOGLOBULINS,IGG,IGA,IGM, PROTEIN ELECTROPHORESIS SERUM W/INTERP, URIC ACID, PROTEIN, TOTAL, B2 MICROGLOBULIN, SERUM VISCOSITY No past medical history on file. PAST SURGICAL HISTORY Procedure Laterality Date PAST SURGICAL HISTORY OF 03/2023 Right foot Social History Tobacco Use Smoking status: Never Smokeless tobacco: Never Substance Use Topics Alcohol use: No No family history on file. I spent a total of 21 minutes on the date of the service which included preparing to see the patient, [id number] patient care, completing clinical documentation, performing a medically appropriate examination, counseling and educating the patient/family/caregiver, ordering medications, tests, or procedures, and independently interpreting results (not separately reported). Cassie Owen PA-C Hematology and Oncology Services Provided at: [place], [place] CC: Taras Wright MD [address] [facility] [id number] documented in this encounter [facility] 04-20-2024 Note HNO ID: [id number] Author: CASSIE OWEN PA-C Service: ? Author Type: Physician Siebel Solution Architect Type: Progress Notes Filed: 04/20/2024 10:39 Note Text: NAME: Morris Belle CLINIC NO.: [id number] DATE OF SERVICE: April 20, 2024 Some elements in this clinic note that are critical to medical decision making have been carefully reviewed and included from a prior clinic note dated: April 15, 2023 (Bhupendra) Referring Provider: Taras Wright Additional Clinicians involved in Morris Belle's care: DIAGNOSIS: MGUS ASSESSMENT: 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 No signs of hypercalcemia, renal failure, anemia, bony lesions. M-protein is low at 0.49 IgG kappa and K/L ratio is stable. Very unlikely his neuropathy is paraprotein related. IgM was normal. Will monitor Neuropathy: No change in neuropathy, no obvious cause. URI: following with PCP PLAN: Labs 1 week prior to return RTC 1 year HPI: Updated Visit, April 20, 2024: Sinus congestion and cough. Morning it is green but as day goes on it clears. No fevers. Waiting to hear from PCP Belkis. Toes remain without feeling. No pain. It hasn't progressed. He has no new pain, fatigue or weight loss. He is trying to lose weight. Updated Visit, April 15, 2023: No real [...] his right leg. 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 REVIEW OF SYSTEMS Per HPI and otherwise negative by full review of organ systems. ECOG PERFORMANCE STATUS: 0 PHYSICAL EXAMINATION: Vitals: BP 126/58 Pulse 53 Temp (Src) 97.3 (Temporal) Resp 16 Ht 5' 5.984 (1.68m) Wt 206 lb 2.1 oz (93.5kg) SpO2 95% BMI 33.29 kg/(m2). Body surface area is 2.09 meters squared. General: Alert and oriented, no distress, pleasant and cooperative. Heart: Regular, normal S1 and S2, no murmurs, rubs, or gallops Lungs: Clear to auscultation bilaterally Abdomen: Benign Extremities: Feet/ankles without edema, posterior tibial pulses full and symmetrical ALLERGIES: ALLERGIES No Known Allergies MEDICATIONS: aspirin, [...] mg by mouth twice daily. LABORATORY VALUES: WBC (k/uL) Date Value 04/13/2024 8.26 RBC (m/uL) Date Value 04/13/2024 4.29 Hemoglobin (g/dL) Date Value 04/13/2024 13.6 Hematocrit (%) Date Value 04/13/2024 39.2 MCV (fL) Date Value 04/13/2024 91.4 MCH (pg) Date Value 04/13/2024 31.7 MCHC (g/dL) Date Value 04/13/2024 34.7 RDW-CV (%) Date Value 04/13/2024 12.6 Platelet Count (k/uL) Date Value 04/13/2024 190 MPV (fL) Date Value 04/13/2024 10.8 Glucose (mg (more content not included)... [facility] 02-13-2024 History of Present illness Narrative Associated Problem(s): Venous insufficiency Chronic redness and using compression. Elevated legs PRN. Associated Problem(s): Type 2 diabetes mellitus with hyperglycemia, without long-term current use of insulin ([facility]) Not checking BS and due for A1C. Stick to ADA diet and limit carbs. Associated Problem(s): Small fiber polyneuropathy Pain stable and continue neurontin. Associated Problem(s): CAD in [place] artery ([facility]) No symptoms and follow with cardiology. Images from the original note were not included. Subjective Patient ID: Morris Belle is a 74 y.o. male who presents for Follow-up (6 m). Follow up DM, neuropathy, edema, and CAD. Not checking BS away from office. Changed diet and trying to stick to ADA diet and limit carbs. Denies signs of elevated BS such as polyuria, polyphagia or polydipsia. Neuropathy unchanged. Continues to have numbness and pain in feet and fingers. Using neurontin and helps. Occasional burning and worse QHS. Pain increased with walking and standing. Loss of sensation getting worse and not able to feel feet. Starting to affect balance. Overall feels like symptoms tolerable. Edema controlled with medication. Mild swelling at end of day and if on feet a lot. Edema improved in am and with elevation. Using compression. Continues to have redness and rash on leg. Following with cardiology and stable. No chest pain or palpitations. Review of Systems Constitutional: Negative for fatigue. Respiratory: Negative for cough, shortness of breath and wheezing. Cardiovascular: Negative for chest pain and palpitations. Gastrointestinal: Negative for abdominal pain, diarrhea, nausea and vomiting. Genitourinary: Negative for dysuria. Objective Physical Exam Constitutional: General: He is not in acute distress. Appearance: Normal appearance. HENT: Head: Normocephalic. Right Ear: Tympanic membrane and ear canal normal. Left Ear: Tympanic membrane and ear canal normal. Eyes: Extraocular Movements: Extraocular movements intact. Pupils: Pupils are equal, round, and reactive to light. Cardiovascular: Rate and Rhythm: Normal rate and regular rhythm. Heart sounds: No murmur heard. No friction rub. No gallop. Pulmonary: Breath sounds: Normal breath sounds. No wheezing, rhonchi or rales. Abdominal: General: Bowel sounds are normal. There is no distension. Palpations: Abdomen is soft. Tenderness: There is no abdominal tenderness. There is no guarding or rebound. Musculoskeletal: Left lower leg: No edema. Neurological: Mental Status: He is alert. Assessment/Plan Problem List Items Addressed This Visit CAD in [place] artery (CMS/HCC) No symptoms and follow with cardiology. Type 2 diabetes mellitus with hyperglycemia, without long-term current use of insulin ([facility]) - Primary Not checking BS and due for A1C. Stick to ADA diet and limit carbs. Relevant Orders Albumin, urine, random Hemoglobin A1c Small fiber polyneuropathy Pain stable and continue neurontin. Venous insufficiency Chronic redness and using compression. Elevated legs PRN. documented in this encounter [facility] 11-14-2023 Miscellaneous Notes OV-06/27/2023 Lipids-08/19/2023 documented in this encounter [facility] 11-14-2023 Telephone encounter Note OV-06/27/2023 Lipids-08/19/2023 [facility] 10-27-2023 Miscellaneous Notes OV 06/27/23 documented in this encounter [facility] 10-27-2023 Telephone encounter Note OV 06/27/23 [facility] 08-19-2023 Miscellaneous Notes Opened in error documented in this encounter [facility] 08-19-2023 Telephone encounter Note Opened in error [facility] 06-27-2023 History of Present illness Narrative Morris Belle Date of visit: 06/27/2023 Date of : 1950 Age: 73 y.o. Patient Active Problem List Diagnosis Right shoulder pain Allergic rhinitis Coronary artery disease of [place] artery of [place] heart with stable angina pectoris ([facility]) Chest pain Abnormal stress test Bunionette of right foot Corns and callosities Ingrown nail Other hammer toe(s) (acquired), right foot Peripheral vascular disease, unspecified ([facility]) Type 2 diabetes mellitus with diabetic polyneuropathy ([facility]) 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 ([facility]) Edema of right lower leg No Known [...] polyp 2003 Dyslipidemia Edema LE Hoarseness Hypoparathyroidism (CMS-HCC) Joint pain Neuropathy Neuropathy estela feet Obesity PAD (peripheral artery disease) ([facility]) Peripheral polyneuropathy Tailor's bunion Visual impairment No data recorded No data recorded No data recorded Past Surgical History: Procedure Laterality Date ACHILLES TENDON REPAIR BOWEL RESECTION 2003 large colon resection Cardiac catheterization - CORS + LV GRAM/PRESS (00368) N/A 11/25/2021 Performed by Savannah Ribeiro MD at [facility] CARDIAC CATH LABS CARPAL TUNNEL RELEASE 2005 COLON SURGERY EXTRACTION CATARACT INTRAOCULAR LENS Left 01/20/2021 Performed by Gage Ramírez MD at [facility] EXTRACTION CATARACT INTRAOCULAR LENS Right 01/08/2021 Performed by Gage Ramírez MD at [facility] Family History Problem Relation Age of [...] linked to this encounter. 1. CAD - WING COVERER distal to apical LAD with collaterals, nonobstructive disease elsewhere on [facility] 11/2021. Resolved angina, has good functional [...] Referring Physician: Taras Wright MD [address] [place] [address] documented in this encounter [facility] 06-24-2023 Miscellaneous Notes Called patient to remind them to bring their most current copy of their medication list with them to their appt. Patient verbalizes understanding. documented in this encounter [facility] 06-24-2023 Telephone encounter Note Called patient to remind them to bring their most current copy of their medication list with them to their appt. Patient verbalizes understanding. [facility] 04-16-2022 Miscellaneous Notes Addended by: JEFFERSON DEWITT on: 04/16/2022 10:30 AM Modules accepted: Orders documented in this encounter [facility] 04-16-2022 Instructions Jefferson Dewitt MD - 04/16/2022 10:24 AM EST 1. Labs 1 week prior to return 2. RTC 1 year documented in this encounter [facility] 04-16-2022 History of Present illness Narrative NAME: Morris Belle CLINIC NO.: [id number] DATE OF SERVICE: April 16, 2022 (Bhupendra) [...] his right leg. 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 Jefferson Dewitt MD, CPE Hematology and Oncology Services Provided at: [place], [place] CC: Taras Wright MD [address] [facility] [id number] documented in this encounter [facility] Evaluation note Diagnosis MGUS (monoclonal gammopathy of unknown significance)- Primary Monoclonal paraproteinemia Idiopathic peripheral autonomic neuropathy Idiopathic peripheral autonomic neuropathy, unspecified [facility] Diagnosis Small fiber polyneuropathy- Primary Chronic venous stasis dermatitis Venous insufficiency Unspecified venous (peripheral) insufficiency Peripheral arterial disease (CMS/HCC) Unspecified peripheral vascular disease Prediabetes Other abnormal glucose Encounter for long-term (current) use of medications Encounter for long-term (current) use of other medications Screening PSA (prostate specific antigen) Special screening for malignant neoplasm of prostate Type 2 diabetes mellitus with hyperglycemia, without long-term current use of insulin (CMS/HCC)- Primary Small fiber polyneuropathy Venous insufficiency Unspecified venous (peripheral) insufficiency CAD in [place] artery (CMS/HCC) documented in this encounter [facility]* Diagnosis Small fiber polyneuropathy- Primary Chronic venous stasis dermatitis Venous insufficiency Unspecified venous (peripheral) insufficiency Peripheral arterial disease (CMS/HCC) Unspecified peripheral vascular disease Prediabetes Other abnormal glucose Encounter for long-term (current) use of medications Encounter for long-term (current) use of other medications Screening PSA (prostate specific antigen) Special screening for malignant neoplasm of prostate Small fiber polyneuropathy Type 2 diabetes mellitus with hyperglycemia, without long-term current use of insulin ([facility])- Primary Small fiber polyneuropathy Venous insufficiency Unspecified venous (peripheral) insufficiency CAD in [place] artery ([facility]) [facility] Diagnosis MGUS (monoclonal gammopathy of unknown significance)- Primary Monoclonal paraproteinemia [facility] Diagnosis Small fiber polyneuropathy- Primary Chronic venous stasis dermatitis Venous insufficiency Unspecified venous (peripheral) insufficiency Peripheral arterial disease ([facility]) Unspecified peripheral vascular disease Prediabetes Other abnormal glucose Encounter for long-term (current) use of medications Encounter for long-term (current) use of other medications Screening PSA (prostate specific antigen) Special screening for malignant neoplasm of prostate Type 2 diabetes mellitus with hyperglycemia, without long-term current use of insulin [place] Primary Small fiber polyneuropathy Venous insufficiency Unspecified venous (peripheral) insufficiency CAD in [place] ([facility] Acute non-recurrent pansinusitis- Primary [facility] Diagnosis Small fiber polyneuropathy- Primary Chronic venous stasis dermatitis Venous insufficiency Unspecified venous (peripheral) insufficiency Peripheral arterial disease ([facility]) Unspecified peripheral vascular disease Prediabetes Other abnormal glucose Encounter for long-term (current) use of medications Encounter for long-term (current) use of other medications Screening PSA (prostate specific antigen) Special screening for malignant neoplasm of prostate Type 2 diabetes mellitus with hyperglycemia, without long-term current use of insulin ([facility])- Primary Small fiber polyneuropathy Venous insufficiency Unspecified venous (peripheral) insufficiency CAD in [place] artery ([facility]) Acute non-recurrent pansinusitis- Primary Small fiber polyneuropathy [facility] Hyperlipidemia, unspecified hyperlipidemia type- Primary [facility] Diagnosis Coronary artery disease of [place] artery of [place] heart with stable angina pectoris ([facility])- Primary Abnormal stress test Other nonspecific abnormal cardiovascular system function study [facility]* Diagnosis Small fiber polyneuropathy- Primary Chronic venous stasis dermatitis Venous insufficiency Unspecified venous (peripheral) insufficiency Peripheral arterial disease ([facility]) Unspecified peripheral vascular disease Prediabetes Other abnormal glucose Encounter for long-term (current) use of medications Encounter for long-term (current) use of other medications Screening PSA (prostate specific antigen) Special screening for malignant neoplasm of prostate Type 2 diabetes mellitus with hyperglycemia, without long-term current use of insulin ([facility])- Primary Small fiber polyneuropathy Venous insufficiency Unspecified venous (peripheral) insufficiency CAD in [place] artery ([facility]) Medicare annual wellness visit, subsequent- Primary Chronic rhinosinusitis Unspecified sinusitis (chronic) Peripheral arterial disease ([facility]) Unspecified peripheral vascular disease Type 2 diabetes mellitus with hyperglycemia, without long-term current use of insulin ([facility]) Small fiber polyneuropathy Type 2 diabetes mellitus with other specified complication ([facility]) Hyperlipidemia, unspecified ([facility]) Type 2 diabetes mellitus with diabetic peripheral angiopathy without gangrene ([facility]) documented in this encounter [facility] HealthcareEvaluation note* Diagnosis Coronary artery disease of [place] artery of [place] heart with stable angina pectoris- Primary Peripheral vascular disease, unspecified Type 2 diabetes mellitus with diabetic polyneuropathy, without long-term current use of insulin ([facility]) Sinus arrhythmia Other specified cardiac dysrhythmias Chest pain, unspecified type KIM (dyspnea on exertion) Other dyspnea and respiratory abnormality Primary hypertension Unspecified essential hypertension [facility] Diagnosis Small fiber polyneuropathy- Primary Chronic venous stasis dermatitis Venous insufficiency Unspecified venous (peripheral) insufficiency Peripheral arterial disease ([facility]) Unspecified peripheral vascular disease Prediabetes Other abnormal glucose Encounter for long-term (current) use of medications Encounter for long-term (current) use of other medications Screening PSA (prostate specific antigen) Special screening for malignant neoplasm of prostate Type 2 diabetes mellitus with hyperglycemia, without long-term current use of insulin ([facility])- Primary Small fiber polyneuropathy Venous insufficiency Unspecified venous (peripheral) insufficiency CAD in [place] artery ([facility]) Medicare annual wellness visit, subsequent- Primary Chronic rhinosinusitis Unspecified sinusitis (chronic) Peripheral arterial disease ([facility]) Unspecified peripheral vascular disease Type 2 diabetes mellitus with hyperglycemia, without long-term current use of insulin ([facility]) Small fiber polyneuropathy Type 2 diabetes mellitus with other specified complication Hyperlipidemia, unspecified ([facility]) Type 2 diabetes mellitus with diabetic peripheral angiopathy without gangrene ([facility]) Type 2 diabetes mellitus with hyperglycemia, without long-term current use of insulin ([facility]/HCC)- Primary Chronic rhinosinusitis Unspecified sinusitis (chronic) CAD in [place] artery ([facility]) Small fiber polyneuropathy Colon cancer screening Special screening for malignant neoplasms, colon [facility] Diagnosis Coronary artery disease of [place] artery of [place] heart with stable angina pectoris- Primary KIM (dyspnea on exertion) Other dyspnea and respiratory abnormality Unstable angina (CMS-HCC)- Primary Intermediate coronary syndrome Unstable angina ([facility]) Intermediate coronary syndrome documented [facility] Diagnosis Unstable angina (CMS-HCC)- Primary Intermediate coronary syndrome Complete heart block (CMS-HCC)- Primary Atrioventricular block, complete Bradycardia Other specified cardiac dysrhythmias Complete heart block ([facility]) Atrioventricular block, complete 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 (CMS-HCC) Unstable angina ([facility]) Intermediate coronary syndrome [facility] Diagnosis Coronary artery disease of [place] artery of [place] heart with stable angina pectoris- Primary Complete heart block ([facility]) Atrioventricular block, complete documented in [facility] Diagnosis Small fiber polyneuropathy- Primary Chronic venous stasis dermatitis Venous insufficiency Unspecified venous (peripheral) insufficiency Peripheral arterial disease ([facility]) Unspecified peripheral vascular disease Prediabetes Other abnormal glucose Encounter for long-term (current) use of medications Encounter for long-term (current) use of other medications Screening PSA (prostate specific antigen) Special screening for malignant neoplasm of prostate Type 2 diabetes mellitus with hyperglycemia, without long-term current use of insulin ([facility])- Primary Small fiber polyneuropathy Venous insufficiency Unspecified venous (peripheral) insufficiency CAD in [place] artery ([facility]) Medicare annual wellness visit, subsequent- Primary Chronic rhinosinusitis Unspecified sinusitis (chronic) Peripheral arterial disease ([facility]) Unspecified peripheral vascular disease Type 2 diabetes mellitus with hyperglycemia, without long-term current use of insulin ([facility]) Small fiber polyneuropathy Type 2 diabetes mellitus with other specified complication Hyperlipidemia, unspecified (CMS/HCC) Type 2 diabetes mellitus with diabetic peripheral angiopathy without gangrene (CMS/HCC) Type 2 diabetes mellitus with hyperglycemia, without long-term current use of insulin (CMS/HCC)- Primary Chronic rhinosinusitis Unspecified sinusitis (chronic) CAD in [place] artery (CMS/HCC) Small fiber polyneuropathy Colon cancer screening Special screening for malignant neoplasms, colon Small fiber polyneuropathy documented in this encounter [facility] HealthcareEvaluation [facility]* Diagnosis Pacemaker - Flores- Primary Cardiac pacemaker in situ [facility] Diagnosis Encounter for screening colonoscopy- Primary Screen for colon cancer Special screening for malignant neoplasms, colon documented [facility]* Diagnosis Type 2 diabetes mellitus with diabetic polyneuropathy, without long-term current use of insulin (CMS-HCC)- Primary Peripheral polyneuropathy Anemia, unspecified type [facility] [...] FoundDocuments on File Type Date Recorded Patient [employer] anation Durable Power of Heel Finisher 10/02/2022 9:29 AM Advance Directive 11/25/2021 9:10 AM Durable Power of Heel Finisher 05/05/2019 2:57 PM Documents on File Type Date Recorded Patient [employer] anation Durable Power of Heel Finisher 10/02/2022 9:29 AM Advance Directive 11/25/2021 9:10 AM Durable Power of Heel Finisher 05/05/2019 2:57 PM Date Activated Date Inactivated Comments 07/16/2024 5:56 PM Date Activated Date Inactivated Comments 07/16/2024 5:56 PM 07/18/2024 4:56 PM Date Activated Date Inactivated Comments 07/16/2024 5:56 PM 07/18/2024 4:56 PM Documents on File Type Date Recorded Patient [employer] anation Durable Power of Heel Finisher 07/23/2024 10:19 AM Durable Power of Heel Finisher 10/02/2022 9:29 AM Advance Directive 11/25/2021 9:10 AM Durable Power of Heel Finisher 05/05/2019 2:57 PM Documents on File Type Date Recorded Patient [employer] anation Durable Power of Heel Finisher 07/23/2024 10:19 AM Durable Power of Heel Finisher 10/02/2022 9:29 AM Advance Directive 11/25/2021 9:10 AM Durable Power of Heel Finisher 05/05/2019 2:57 PM Documents on File Type Date Recorded Patient [employer]ation Durable Power of Heel Finisher 12/31/2024 11:00 AM Durable Power of Heel Finisher for Health Care 12/31/2024 Durable Power of Heel Finisher 10/16/2024 9:08 AM Durable Power of Heel Finisher 07/23/2024 10:19 AM Durable Power of Heel Finisher 10/02/2022 9:29 AM Advance Directive 11/25/2021 9:10 AM Durable Power of Heel Finisher 05/05/2019 2:57 PM Additional Source Comments (unrecognized sect ion and content) No Status Records FoundNo Status Records FoundNo Status Records FoundNo Status Records FoundNo Status Records FoundNo Status Records FoundNo Status Records Found INFORMATION SOURCE (unrecogn ized section and content) DATE CREATED AUTHOR 09/27/2017 [facility] DATE CREATED AUTHOR 'S ORGANIZ ATION 08/16/2022 [facility] DATE CREATED AUTHOR AUTHOR'S ORGANIZ ATION 04/21/2024 [facility] DATE CREATED AUTHOR AUTHOR'S ORGANIZ ATION 07/04/2024 [facility] DATE CREATED AUTHOR AUTHOR'S ORGANIZ ATION 07/19/2024 [facility] DATE CREATED AUTHOR AUTHOR'S ORGANIZ ATION 01/06/2025 [facility] DATE CREATED AUTHOR AUTHOR'S ORGANIZ ATION 01/06/2025 [facility] Source Comments (unrecognize d section and content) In the event this informatio n is protected by the Federal Confidentiality of Alcohol and Drug Abuse Patient Records regulations: The Federal rules restrict any use of the information to criminally investigate or prosecute any alcohol or drug abuse patient.[facility] the event this information is protected by the Federal Confidentiality of Alcohol and Drug Abuse Patient Records regulations: The Federal rules restrict any use of the information to criminally investigate or prosecute any alcohol or drug abuse patient.[facility] Care Teams (unrecognized sec tion and content) Service Attendant Relationship Specialty Start Date End Date Taras Wright [address] [place] [address] PCP - General Family Medicine 06/20/17 Service Attendant Relationship Specialty Start Date End Date Taras Wright MD [address] [place] [address] PCP - General Family Medicine 08/24/23 Service Attendant Relationship Specialty Start Date End Date Taras Wright MD [address] [place] [address] PCP - General Family Medicine 08/24/23 Service Attendant Relationship Specialty Start Date End Date Taras Wright MD [address] [place] [address] PCP - General Family Medicine 08/24/23 Service Attendant Relationship Specialty Start Date End Date Taras Wright MD [address] [place] [address] PCP - General Family Medicine 08/24/23 Service Attendant Relationship Specialty Start Date End Date Taras Wright MD [address] [place] [address] PCP - General Family Medicine 06/20/17 Service Attendant Relationship Specialty Start Date End Date Taras Wright MD [address] [place] [address] PCP - General Family Medicine 08/24/23 Service Attendant Relationship Specialty Start Date End Date Taras Wright MD [address] [facility] [place] [address] PCP - General 04/21/17 Service Attendant Relationship Specialty Start Date End Date Taras Wright MD [address] [place] [address] PCP - General Family Medicine 08/24/23 Taras Wright MD [address] [place] [phone] PCP - ACO Reach 05/11/24 Service Attendant Relationship Specialty Start Date End Date Taras Wright MD [address] [facility] [place] [address] PCP - General 04/21/17 Service Attendant Relationship Specialty Start Date End Date Taras Wright MD [address] [facility] [place] [address] PCP - General 04/21/17 Service Attendant Relationship Specialty Start Date End Date Taras Wright MD [address] [facility] [place] [address] PCP - General 04/21/17 Service Attendant Relationship Specialty Start Date End Date Taras Wright MD [address] [facility] [place] [address] PCP - General 04/21/17 Service Attendant Relationship Specialty Start Date End Date Taras Wright MD PCP - General 04/21/17 Service Attendant Relationship Specialty Start Date End Date Taras Wright MD PCP - General 04/21/17 Service Attendant Relationship Specialty Start Date End Date Taras Wright MD [address] [place] [phone] PCP - General Family Medicine 08/24/23 Taras Wright MD [address] [place] [address] PCP - ACO Reach 05/11/24 Service Attendant Relationship Specialty Start Date End Date Taras Wright MD [address] [place] [phone] PCP - General Family Medicine 08/24/23 Taras Wright MD [address] [place] [phone] PCP - ACO Reach 05/11/24 Service Attendant Relationship Specialty Start Date End Date Taras Wright MD PCP - General 04/21/17 Service Attendant Relationship Specialty Start Date End Date Taras Wright MD PCP - General 04/21/17 Service Attendant Relationship Specialty Start Date End Date Taras Wright MD [address] [place] [phone] PCP - General Family Medicine 08/24/23 Taras Wrgiht MD [address] [place] [phone] PCP - ACO Reach 05/11/24 Service Attendant Relationship Specialty Start Date End Date Taras Wright MD [address] [place] [phone] PCP - General Family Medicine 08/24/23 Taras Wright MD [address] [place] [phone] PCP - ACO Reach 05/11/24 Service Attendant Relationship Specialty Start Date End Date Taras Wright MD PCP - General 04/21/17 Service Attendant Relationship Specialty Start Date End Date Taras Wright MD PCP - General 04/21/17 Service Attendant Relationship Specialty Start Date End Date Taras Wright MD PCP - General 04/21/17 Service Attendant Relationship Specialty Start Date End Date Taras Wright MD PCP - General 04/21/17 Service Attendant Relationship Specialty Start Date End Date Taras Wright MD PCP - General 04/21/17 Service Attendant Relationship Specialty Start Date End Date Taras Wright MD PCP - General 04/21/17 Service Attendant Relationship Specialty Start Date End Date Taras Wright MD PCP - General 04/21/17 Service Attendant Relationship Specialty Start Date End Date Taras Wright MD [address] [place] [phone] PCP - General Family Medicine 08/24/23 Taras Wright MD [address] [place] [phone] PCP - ACO Reach 05/11/24 Service Attendant Relationship Specialty Start Date End Date Taras Wright MD PCP - General 04/21/17 Service Attendant Relationship Specialty Start Date End Date Taras Wright MD PCP - General 04/21/17 Service Attendant Relationship Specialty Start Date End Date Taras Wright MD [address] [place] [phone] PCP - General Family Medicine 09/18/24 Service Attendant Relationship Specialty Start Date End Date Taras Wright MD PCP - General Family Medicine 09/18/24 Service Attendant Relationship Specialty Start Date End Date Taras Wright MD PCP - General Family Medicine 09/18/24 Service Attendant Relationship Specialty Start Date End Date Isma Cohen DO [address] [place] [address], [address] [place], [place] [phone] PCP - General Family Medicine 12/31/24 Reason for Visit (unrecogniz ed section and content) Reason Comments Establish Care Reason Comments Colon Cancer Screening SCREENING COLONOS COPY, PATIENT HAS RECENTLY HAD PACEMAKER PUT IN, last colonoscopy was 06/2014 at [facility] Reason Comments Device Check Reason Comments Follow-up wound check s/p impl ant 07/17 @ [facility] w/VG- pt reqs [facility] only - EST PT F/U CATH DONE SCHED W/PT L/S MBO Reason Onset Date Comments Need for Cardiac Cath 07/23/2024 Reason Onset Date Comments Samples 07/20/2024 Reason Comments Slow Heart Rate Medical Problem Specialty Diagnoses / Procedures Referred By Contac t Referred To Contact Diagnoses Shortness of breath Complete heart block (CMS-HCC) Davie Luna MD [address] [place] [address] Phone: tel: fax: Referral ID Status Reason Start Date Expiration Date Visits Re quested Visits Authorized [id number] 1 1 Reason Comments Follow-up EST PT EARLY FU ABN CTA, POSSIBLE CATH, SCHED W/PT Reason Onset Date Comments Cardiac Cath 07/16/2024 Reason Comments Follow-up 6w Reason Comments Follow-up OV F/U 1 YR NO TESTS L/S TMP, SCHED W/PT Reason Comments Medicare Annual Wellness Visit Subsequen t wellness Sinusitis Ongoing for a month Reason Comments Follow-up EST PT 6 MO FU L/S R DG ID REFERRAL SCHED W/PT Reason Onset Date Comments Med Refill 08/19/2023 Reason Onset Date Comments Med Refill 08/17/2023 Reason Onset Date Comments Med Refill 07/22/2023 Reason Comments Follow-up Sinus infection Reason Comments MGUS Reason Comments Med Refill Reason Comments Follow-up 6 m Scheduled Active and Recently Administ ered Medications (unrecognized section and content) Medication Order 07/16/2024 07/17/2024 07/18/2024 aspirin chewable tablet 81 mg 81 mg, oral, Daily, First dose on Tue07/16/24 at 1830 1845 (Given - Provider: Padmini Stone RN) 0733 (JUN Hold - Provider: User Epic - Reason: Patient not available)1010 (JUN Unhold - Provider: User Epic)1020 (Given - Provider: Padmini Stone RN) 0840 (Given - Provider: Kati Madsen RN) atorvastatin (LIPITOR) tablet 40 mg (CANCELED) 40 mg, oral, Nightly, First dose on Tue07/16/24 at 2200, Look-alike/sound-alike medication - verify indication for use. 2250 (Given - Provider: Lito Rubi RN) 0733 (JUN Hold - Provider: User Epic - Reason: Patient not available)1010 (JUN Unhold - Provider: User QuicklyChat)2120 (Given - Provider: Lito Rubi RN) atorvastatin (LIPITOR) tablet 80 mg 80 mg, oral, Nightly, First dose (after last modification) on Tue07/18/24 at 2200, Look-alike/sound-alike medication - verify indication for use. ceFAZolin (ANCEF) IVPB 2000 mg/50 mL in iso-osmotic dextrose (40 mg/mL premix) (COMPLETED) 2,000 mg, intravenous, at 100 mL/hr, Administer over 30 Minutes, Every 8 hours, First dose on Tue07/17/24 at 1600, For 3 doses, Look-alike/sound-alike medication - verify indication for use., Indication: Surgical prophylaxis 1556 (New Bag - Provider: Padmini Stone, EMILY)1626 (Stop Bag - Provider: Padmini Stnoe, EMILY) 0008 (New Bag - Provider: Lito Rubi, EMILY)0038 (Stop Bag - Provider: Lito Rubi RN)1004 (New Bag - Provider: Kati Madsen RN)1032 (Rate/Dose Verify - Provider: Kati Madsen RN)1034 (Stop Bag - Provider: Kati Madsen RN) empagliflozin (JARDIANCE) tablet 10 mg 10 mg, oral, Daily, First dose on Tue07/18/24 at 1015 1206 (Given - Provider: Kati Madsen RN) fentaNYL (SUBLIMAZE) injection 75 mcg 75 mcg, intravenous, Once, On Tue07/16/24 at 1555, For 1 dose, For IVP, must be given slow IV Push over 1 to 2 minutes. Look-alike/sound-alike medication - verify indication for use. 1555 (Hold - Provider: Tanesha Brooks RN - Reason: Other - Comment: hold per Dr. Yadav) 0733 (JUN Hold - Provider: User Epic - Reason: Patient not available)1010 (JUN Unhold - Provider: User Epic) furosemide (LASIX) injection 40 mg (COMPLETED) 40 mg, intravenous, Once, On Tue07/17/24 at 1000, For 1 dose, Look-alike/sound-alike medication - verify indication for use. IVP rate = 20 mg/min 1020 (Given - Provider: Padmini Stone RN) furosemide (LASIX) injection 40 mg (COMPLETED) 40 mg, intravenous, Once, On Tue07/18/24 at 1030, For 1 dose, Look-alike/sound-alike medication - verify indication for use. IVP rate = 20 mg/min 1206 (Given - Provider: Kati Madsen RN) heparin (porcine) injection 5,000 Units (CANCELED) 5,000 Units, subcutaneous, Every 12 hours scheduled, First dose (after last modification) on Tue07/17/24 at 0900, Look-alike/sound-alike medication - verify indication for use. Observe for bleeding. 0733 (JUN Hold - Provider: User Epic - Reason: Patient not available)1010 (JUN Unhold - Provider: User Epic)1021 (Given - Provider: Padmini Stone RN) iron sucrose (VENOFER) IVPB 200 mg/110 mL in sodium chloride 0.9% (CMPD premix) 200 mg, intravenous, at 440 mL/hr, Administer over 15 Minutes, Daily, First dose on Tue07/18/24 at 1015, For 1 dose, Monitor patient for hypersensitivity reactions for at least 30 minutes after the infusion. AVOID the use of H1 antihistamines, such as diphenhydramine, as this may worsen hypersensitivity reactions. Have resuscitation equipment and medications available. 1015 (Not Given - Provider: Kati Madsen RN - Reason: Patient/family refused) isosorbide mononitrate (IMDUR) 24 hr tablet 30 mg 30 mg, oral, Daily, First dose on Tue07/17/24 at 0900, Do not crush or chew. 0733 (JUN Hold - Provider: User Epic - Reason: Patient not available)1010 (JUN Unhold - Provider: User Epic)1022 (Given - Provider: Padmini Stone RN) 0840 (Given - Provider: Kati Madsen RN) metoprolol succinate XL (TOPROL XL) 24 hr tablet 25 mg 25 mg, oral, Daily, First dose on Tue07/18/24 at 1015, Look-alike/sound-alike medication - verify indication for use. Do not crush or chew. 1206 (Given - Provider: Kati Madsen RN) midazolam (PF) (VERSED) injection 1 mg 1 mg, intravenous, Once, On Tue07/16/24 at 1555, For 1 dose 1555 (Hold - Provider: Tanesha Brooks RN - Reason: Other - Comment: hold per Dr. Yadav) 0733 (JUN Hold - Provider: User Epic - Reason: Patient not available)1010 (JUN Unhold - Provider: User Epic) Continuous Medication Order 07/16/2024 07/17/2024 07/18/2024 sodium chloride 0.9 % infusion 20 mL/hr, intravenous, Continuous, Starting on Tue07/17/24 at 1000, For 1 day, Convert to INT when tolerating liquids 1017 (New Bag - Provider: Padmini Stone, EMILY)1800 (Stop Bag - Provider: Lito Rubi, EMILY) PRN Medication Order 07/16/2024 07/17/2024 07/18/2024 acetaminophen (TYLENOL EXTRA STRENGTH) tablet 1,000 mg 1,000 mg, oral, Every 6 hours PRN, moderate pain - pain scale 4-6, Starting on Tue07/17/24 at 2029 0311 (Given - Provider: Lito Rubi, EMILY)1210 (Given - Provider: Kati Madsen RN) acetaminophen (TYLENOL) tablet 650 mg 650 mg, oral, Every 4 hours PRN, mild pain - pain scale 1-3, Starting on Tue07/17/24 at 0957 1238 (Given - Provider: Daniel Suh, EMILY)1732 (Given - Provider: Padmini Stone RN) bupivacaine PF (MARCAINE) 0.5 % (5 mg/mL) injection (CANCELED) Code/trauma/sedation medication, Starting on Tue07/17/24 at 0809, Intra-Procedure (CV) 0809 (Given - Provider: Davie Luna MD) bupivacaine PF (MARCAINE) 0.5 % (5 mg/mL) injection (CANCELED) Code/trauma/sedation medication, Starting on Tue07/17/24 at 0832, Intra-Procedure (CV) 0832 (Given - Provider: Davie Luna MD) calcium gluconate 3,000 mg in sodium chloride 0.9 % 100 mL IVPB(Linked Group 1) 3,000 mg, intravenous, at 130 mL/hr, Administer over 60 Minutes, As needed, for ionized calcium level less than 3 mg/dL, Starting on Tue07/16/24 at 1753, CALL PHYSICIAN if this dose is administered. Recheck ionized calcium 6 hours after infusion. Hold calcium replacement for phosphorus greater than 5.5 mg/dL. VESICANT (RED) 0614 (See Alternative - Provider: Lito Rubi RN)0714 (See Alternative - Provider: Padmini Stone RN)0733 (JUN Hold - Provider: User Epic - Reason: Patient not available)1010 (JUN Unhold - Provider: User Epic) 0759 (See Alternative - Provider: Kati Madsen RN)0859 (See Alternative - Provider: Kati Madsen RN)1032 (See Alternative - Provider: Kati Madsen RN) calcium gluconate IVPB 1000 mg/50 mL (20 mg/mL premix)(Linked Group 1) 1,000 mg, intravenous, at 50 mL/hr, Administer over 60 Minutes, As needed, for ionized calcium level 3.5 to 4.4 mg/dL, Starting on Tue07/16/24 at 1753, Recheck ionized calcium 6 hours after infusion. Hold calcium replacement for phosphorus greater than 5.5 mg/dL. VESICANT (RED) 0614 (New Bag - Provider: Lito Rubi RN)0714 (Stop Bag - Provider: Padmini Stone RN)0733 (MAR Hold - Provider: User Epic - Reason: Patient not available)1010 (JUN Unhold - Provider: User Epic) 0759 (New Bag - Provider: Kati Madsen RN)0859 (Stop Bag - Provider: Kati Madsen RN)1032 (Canceled Entry - Provider: Kati Madsen RN - Comment: Cancelled from back documented administration.) calcium gluconate IVPB 2000 mg/100 mL (20 mg/mL premix)(Linked Group 1) 2,000 mg, intravenous, at 100 mL/hr, Administer over 60 Minutes, As needed, for ionized calcium level 3 to 3.4 mg/dL, Starting on Tue07/16/24 at 1753, Recheck ionized calcium 6 hours after infusion. Hold calcium replacement for phosphorus greater than 5.5 mg/dL. VESICANT (RED) 0614 (See Alternative - Provider: Lito Rubi RN)0714 (See Alternative - Provider: Padmini Stone RN)0733 (JUN Hold - Provider: User Epic - Reason: Patient not available)1010 (MAR Unhold - Provider: User Epic) 0759 (See Alternative - Provider: Kati Madsen, RN)0859 (See Alternative - Provider: Kati Madsen, RN)1032 (See Alternative - Provider: Kati Madsen, RN) ceFAZolin (ANCEF) injection (CANCELED) Code/trauma/sedation medication, Starting on Tue07/17/24 at 0750, Intra-Procedure (CV) 0750 (Given - Provider: Regina Nguyen RN) dextrose (GLUTOSE) 40 % gel 15 g 15 g, oral, As needed, low blood sugar, blood glucose less than 70 mg/dL, Starting on Tue07/16/24 at 1753, If patient conscious and taking PO. If blood glucose is not greater than 70 mg/dL after initial treatment, repeat treatment. 0733 ([facility] Hold - Provider: User Epic - Reason: Patient not available)1010 ([facility] Unhold - Provider: User Epic) dextrose (GLUTOSE) 40 % gel 15 g 15 g, oral, As needed, low blood sugar, blood glucose less than 70 mg/dL, Starting on Tue07/17/24 at 0957, Recovery (CV) and Post-Procedure, If patient conscious and taking PO. If blood glucose is not greater than 70 mg/dL after initial treatment, repeat treatment. dextrose 5 % (D5W) infusion 100 mL/hr, intravenous, Continuous PRN, blood glucose less than 70 mg/dL, Starting on Tue07/17/24 at 0957, For 1 day, Recovery (CV) and Post-Procedure, Use immediately following dextrose 50% or glucagon treatment for patients who are unconscious or NPO. Contact prescriber for additional orders. If blood glucose is not greater than 70 mg/dL after initial treatment, repeat treatment. dextrose 50 % in water (D50W) 50% solution 25 mL 25 mL, intravenous, As needed, low blood sugar, blood glucose less than 70 mg/dL and unconscious or NPO with IV access, Starting on Tue07/16/24 at 1753, Push over 1-3 minutes STAT. If conscious and not NPO, immediately follow with meal tray or high protein (7 grams) snack if tray not available. If NPO, initiate 5% dextrose in water at 100 mL/hr and contact prescriber for additional orders. If blood glucose is not greater than 70 mg/dL after initial treatment, repeat treatment. VESICANT (RED) Warning: HYPERTONIC solution. 0733 (JUN Hold - Provider: User Epic - Reason: Patient not available)1010 (JUN Unhold - Provider: User Epic) dextrose 50 % in water (D50W) 50% solution 25 mL 25 mL, intravenous, As needed, low blood sugar, blood glucose less than 70 mg/dL and unconscious or NPO with IV access, Starting on Tue07/17/24 at 0957, Recovery (CV) and Post-Procedure, Push over 1-3 minutes STAT. If conscious and not NPO, immediately follow with meal tray or high protein (7 grams) snack if tray not available. If NPO, initiate 5% dextrose in water at 100 mL/hr and contact prescriber for additional orders. If blood glucose is not greater than 70 mg/dL after initial treatment, repeat treatment. VESICANT (RED) Warning: HYPERTONIC solution. fentaNYL (SUBLIMAZE) injection (CANCELED) Code/trauma/sedation medication, Starting on Tue07/17/24 at 0817, Intra-Procedure (CV) 0817 (Given - Provider: Regina Nguyen, EMILY)0831 (Given - Provider: Regina Nguyen, EMILY)0837 (Given - Provider: Regina Nguyen, EMILY) glucagon (human recombinant) (GLUCAGEN) injection 1 mg 1 mg, intramuscular, As needed, low blood sugar, blood glucose less than 70 mg/dL and unconscious or NPO without IV access., Starting on Tue07/17/24 at 0957, Recovery (CV) and Post-Procedure, If conscious and not NPO, immediately follow with meal tray or high protein (7Grams) snack if tray not available. If NPO, initiate IV 5% Dextrose/Water at 100 mL/hr and contact prescriber for additional orders. If blood glucose is not greater than 70 mg/dL after initial treatment, repeat treatment. glucagon HCL injection 1 mg 1 mg, intramuscular, As needed, low blood sugar, blood glucose less than 70 mg/dL and unconscious or NPO without IV access., Starting on Tue07/16/24 at 1753, If conscious and not NPO, immediately follow with meal tray or high protein (7Grams) snack if tray not available. If NPO, initiate IV 5% Dextrose/Water at 100 mL/hr and contact prescriber for additional orders. If blood glucose is not greater than 70 mg/dL after initial treatment, repeat treatment. 0733 ([place]UN Hold - Provider: User Epic - Reason: Patient not available)1010 ([place]UN Unhold - Provider: User Epic) iohexoL (OMNIPAQUE) 300 mg iodine/mL (CANCELED) Code/trauma/sedation medication, Starting on Tue07/17/24 at 0830, Intra-Procedure (CV) 0830 (Given - Provider: Regina Nguyen RN - Comment: venogram) lidocaine PF (XYLOCAINE) 10 mg/mL (1 %) injection (CANCELED) Code/trauma/sedation medication, Starting on Tue07/17/24 at 0810, Intra-Procedure (CV) 0810 (Given - Provider: Davie Luna MD) lidocaine PF (XYLOCAINE) 10 mg/mL (1 %) injection (CANCELED) Code/trauma/sedation medication, Starting on Tue07/17/24 at 0833, Intra-Procedure (CV) 0833 (Given - Provider: Davie Luna MD)0837 (Given - Provider: Davie Luna MD) magnesium sulfate IVPB 2000 mg/50 mL in iso-osmotic water (40 mg/mL premix)(Linked Group 2) 2,000 mg, intravenous, at 25 mL/hr, Administer over 120 Minutes, As needed, for magnesium level 1.7 to 1.9 mg/dL or ionized magnesium level 0.45 to 0.5 mmol/L, Starting on Tue07/16/24 at 1753, Use premix solution. Default to ionized magnesium level in cases where patient has both magnesium and ionized magnesium results. If administered, check ionized magnesium (or total magnesium if ionized magnesium unavailable) level 4 hours after infusion. 0506 (New Bag - Provider: Lito Rubi RN)0706 (Stop Bag - Provider: Padmini Stone RN)0733 (JUN Hold - Provider: User Epic - Reason: Patient not available)1010 (JUN Unhold - Provider: User Epic) magnesium sulfate IVPB 4000 mg/100 mL in iso-osmotic water (40 mg/mL premix)(Linked Group 2) 4,000 mg, intravenous, at 25 mL/hr, Administer over 240 Minutes, As needed, for magnesium level 1.6 mg/mL or less, or ionized magnesium level 0.44 mmol/L or less, Starting on Tue07/16/24 at 1753, Use premix solution. Default to ionized magnesium level in cases where patient has both magnesium and ionized magnesium results. If administered, check ionized magnesium (or total magnesium if ionized magnesium unavailable) level 4 hours after infusion. 0506 (See Alternative - Provider: Lito Rubi RN)0706 (See Alternative - Provider: Padmini Stone, EMILY)0733 (JUN Hold - Provider: User Epic - Reason: Patient not available)1010 (MAR Unhold - Provider: User Epic) midazolam (PF) (VERSED) injection (CANCELED) Code/trauma/sedation medication, Starting on Tue07/17/24 at 0818, Intra-Procedure (CV) 0818 (Given - Provider: Regina Nguyen, EMILY)0831 (Given - Provider: Regina Nguyen RN)0837 (Given - Provider: Regina Nguyen RN) perflutren lipid microspheres (DEFINITY) dilution injection 1.43 mg/10 mL () 2 mL, intravenous, As needed, contrast, Starting on Tue07/16/24 at 1821, For 6 hours, Additional Imaging Orders, Dilute 1.3 mL of Definity with 8.7mL of 0.9% NaCl in 10 mL syringe Administer 2 mL perflutren (Definity) contrast if 2 contiguous segments of the LV are not well visualized. May repeat 2 mL dose until LV visualization is accomplished. Procedure total dose not to exceed 10 mL. 1822 (Given - Provider: Padmini Stone RN) perflutren lipid microspheres (DEFINITY) dilution injection 1.43 mg/10 mL 2 mL, intravenous, As needed, contrast, Starting on Tue07/18/24 at 0639, For 6 hours, Additional Imaging Orders, Dilute 1.3 mL of Definity with 8.7mL of 0.9% NaCl in 10 mL syringe Administer 2 mL perflutren (Definity) contrast if 2 contiguous segments of the LV are not well visualized. May repeat 2 mL dose until LV visualization is accomplished. Procedure total dose not to exceed 10 mL. potassium chloride (K-TAB,KLOR-CON) CR tablet 20-50 mEq(Linked Group 3) 20-50 mEq, oral, As needed, for potassium replacement, Starting on Tue07/16/24 at 1753, Progress to oral potassium replacement when patient tolerating oral intake. If dose administered, recheck potassium level 4 hours after last dose. For potassium level 3.4 to 3.8 mmol/L and Serum Creatinine 1.2 or less=30 mEq. For potassium level 3.1 to 3.3 mmol/L and Serum Creatinine 1.2 or less=40 mEq. For potassium level 3 mmol/L or less and Serum Creatinine 1.2 or less=50 mEq. For potassium level 3.4 to 3.8 mmol/L and Serum Creatinine greater than 1.2=20 mEq. For potassium level 3.1 to 3.3 mmol/L and Serum Creatinine greater than 1.2=30 mEq. For potassium level 3 mmol/L or less and Serum Creatinine greater than 1.2=40 mEq. Do not crush or chew. 2250 (Given - Provider: Lito Rubi RN) 0505 (Given - Provider: Lito Rubi RN)0733 (MAR Hold - Provider: User QuicklyChat - Reason: Patient not available)1010 (MAR Unhold - Provider: User QuicklyChat) 0532 (Given - Provider: Lito Rubi RN) potassium chloride (KAYCIEL) 20 mEq/15 mL solution 20-50 mEq(Linked Group 3) 20-50 mEq, oral, As needed, potassium replacement, Starting on Tue07/16/24 at 1753, Progress to oral potassium replacement when patient tolerating oral intake. If dose administered, recheck potassium level 4 hours after last dose. For potassium level 3.4 to 3.8 mmol/L and Serum Creatinine 1.2 or less=30 mEq (22.5mL). For potassium level 3.1 to 3.3 mmol/L and Serum Creatinine 1.2 or less=40 mEq (30mL). For potassium level 3 mmol/L or less and Serum Creatinine 1.2 or less=50 mEq (37.5mL). For potassium level 3.4 to 3.8 mmol/L and Serum Creatinine greater than 1.2=20 mEq (15mL). For potassium level 3.1 to 3.3 mmol/L and Serum Creatinine greater than 1.2=30 mEq (22.5mL). For potassium level 3 mmol/L or less and Serum Creatinine greater than 1.2=40 mEq (30mL). Must dilute before use - Mix in 3-8 ounces of water or juice before administration When administering in feeding tube, flush before and after per policy and monitor potassium levels 2250 (See Alternative - Provider: Lito Rubi, RN) 0505 (See Alternative - Provider: Lito Rubi, RN)0733 (JUN Hold - Provider: User Epic - Reason: Patient not available)1010 ([place] Unhold - Provider: User Epic) 0532 (See Alternative - Provider: Lito Rubi RN) potassium chloride IVPB 10 mEq/100 mL in water (0.1 mEq/mL premix)(Linked Group 4) 10 mEq, intravenous, at 100 mL/hr, Administer over 60 Minutes, As needed, for potassium replacement, Starting on Tue07/16/24 at 1753, Administer Potassium Chloride IVPB in 10 mEq increments. Maximum infusion rates: Central Line = 20 mEq/hour; Peripheral Line = 10 mEq/hour (10 mEq/100 mL). If dose administered, recheck potassium level 1 hour after infusion complete. For potassium level 3.4 to 3.8 mmol/L and Serum Creatinine 1.2 or less = 30 mEq For potassium level 3.1 to 3.3 mmol/L and Serum Creatinine 1.2 or less = 40 mEq For potassium level 3 mmol/L or less and Serum Creatinine 1.2 or less = 50 mEq For potassium level 3.4 to 3.8 mmol/L and Serum Creatinine greater than 1.2 = 20 mEq For potassium level 3.1 to 3.3 mmol/L and Serum Creatinine greater than 1.2 = 30 mEq For potassium level 3 mmol/L or less and Serum Creatinine greater than 1.2 = 40 mEq VESICANT (YELLOW) Infuse each 10 mEq over a minimum of 1 hour. 0733 (JUN Hold - Provider: User Epic - Reason: Patient not available)1010 (MAR Unhold - Provider: User Epic) potassium chloride IVPB 10 mEq/50 mL in water (0.2 mEq/mL premix)(Linked Group 4) 10 mEq, intravenous, at 50 mL/hr, Administer over 1 Hours, As needed, for potassium replacement, Starting on Tue07/16/24 at 1753, Administer Potassium Chloride IVPB in 10 mEq increments. Maximum infusion rates: Central Line = 20 mEq/hour. Administer via Central Line Only. If dose administered, recheck potassium level 1 hour after infusion complete. For potassium level 3.4 to 3.8 mmol/L and Serum Creatinine 1.2 or less = 30 mEq For potassium level 3.1 to 3.3 mmol/L and Serum Creatinine 1.2 or less = 40 mEq For potassium level 3 mmol/L or less and Serum Creatinine 1.2 or less = 50 mEq For potassium level 3.4 to 3.8 mmol/L and Serum Creatinine greater than 1.2 = 20 mEq For potassium level 3.1 to 3.3 mmol/L and Serum Creatinine greater than 1.2 = 30 mEq For potassium level 3 mmol/L or less and Serum Creatinine greater than 1.2 = 40 mEq VESICANT (YELLOW) 0733 (MAR Hold - Provider: User Epic - Reason: Patient not available)1010 (MAR Unhold - Provider: User QuicklyChat) sod phos di, mono-K phos mono (K-PHOS NEUTRAL) 250 mg tablet 2 tablet(Linked Group 5) 2 tablet, oral, As needed, for phosphorous level 2.3 mg/dL or less, Starting on Tue07/16/24 at 1753, If dose administered, recheck phosphorus level 4 hours after last dose. Look-alike/sound-alike medication - verify indication for use. Give with a full glass of water. 0733 (MAR Hold - Provider: User Epic - Reason: Patient not available)1010 (MAR Unhold - Provider: User QuicklyChat) sodium chloride 0.9 % flush 10 mL 10 mL, intravenous, Once as needed, line care, for use for echo contrast only, Starting on Tue07/18/24 at 0639, For 6 hours, Additional Imaging Orders sodium phosphate 20 mmol in sodium chloride 0.9 % 100 mL IVPB(Linked Group 5) 20 mmol, intravenous, at 26.7 mL/hr, Administer over 4 Hours, As needed, for phosphorous level 2.3 mg/dL or less, Starting on Tue07/16/24 at 1753, Administer over 4 hours via dedicated line(central line). If administered, recheck phosphorus level 4 hours after infusion complete. Infuse using central line access. 0733 (MAR Hold - Provider: User Epic - Reason: Patient not available)1010 (JUN Unhold - Provider: User Epic) sodium phosphate 20 mmol in sodium chloride 0.9 % 250 mL IVPB(Linked Group 5) 20 mmol, intravenous, at 42.8 mL/hr, Administer over 6 Hours, As needed, for phosphorous level 2.3 mg/dL or less, Starting on Tue07/16/24 at 1753, Administer over 6 hours via dedicated line (peripheral line). If administered, recheck phosphorus level 4 hours after infusion complete. 0733 (JUN Hold - Provider: User Epic - Reason: Patient not available)1010 (JUN Unhold - Provider: User Epic) vancomycin (VANCOCIN) 1,000 mg in sodium chloride 0.9 % 250 mL IVPB (CANCELED) Administer over 60 Minutes, Code/trauma/sedation continuous med, Starting on Tue07/17/24 at 0751, Intra-Procedure (CV) 0751 (New Bag - Provider: Regina Nguyen, RN)0850 (Stop Bag - Provider: Regina Nguyen, EMILY) Linked Groups Order Group 1: calcium gluconate IVPB 1000 mg/50 mL (20 mg/mL premix)Jump to med 1,000 mg, intravenous, at 50 mL/hr, Administer over 60 Minutes, As needed, for ionized calcium level 3.5 to 4.4 mg/dL, Starting on Tue07/16/24 at 1753, Recheck ionized calcium 6 hours after infusion. Hold calcium replacement for phosphorus greater than 5.5 mg/dL. VESICANT (RED) Or calcium gluconate IVPB 2000 mg/100 mL (20 mg/mL premix)Jump to med 2,000 mg, intravenous, at 100 mL/hr, Administer over 60 Minutes, As needed, for ionized calcium level 3 to 3.4 mg/dL, Starting on Tue07/16/24 at 1753, Recheck ionized calcium 6 hours after infusion. Hold calcium replacement for phosphorus greater than 5.5 mg/dL. VESICANT (RED) Or calcium gluconate 3,000 mg in sodium chloride 0.9 % 100 mL IVPBJump to med 3,000 mg, intravenous, at 130 mL/hr, Administer over 60 Minutes, As needed, for ionized calcium level less than 3 mg/dL, Starting on Tue07/16/24 at 1753, CALL PHYSICIAN if this dose is administered. Recheck ionized calcium 6 hours after infusion. Hold calcium replacement for phosphorus greater than 5.5 mg/dL. VESICANT (RED) Group 2: magnesium sulfate IVPB 2000 mg/50 mL in iso-osmotic water (40 mg/mL premix)Jump to med 2,000 mg, intravenous, at 25 mL/hr, Administer over 120 Minutes, As needed, for magnesium level 1.7 to 1.9 mg/dL or ionized magnesium level 0.45 to 0.5 mmol/L, Starting on Tue07/16/24 at 1753, Use premix solution. Default to ionized magnesium level in cases where patient has both magnesium and ionized magnesium results. If administered, check ionized magnesium (or total magnesium if ionized magnesium unavailable) level 4 hours after infusion. Or magnesium sulfate IVPB 4000 mg/100 mL in iso-osmotic water (40 mg/mL premix)Jump to med 4,000 mg, intravenous, at 25 mL/hr, Administer over 240 Minutes, As needed, for magnesium level 1.6 mg/mL or less, or ionized magnesium level 0.44 mmol/L or less, Starting on Tue07/16/24 at 1753, Use premix solution. Default to ionized magnesium level in cases where patient has both magnesium and ionized magnesium results. If administered, check ionized magnesium (or total magnesium if ionized magnesium unavailable) level 4 hours after infusion. Group 3: potassium chloride (K-TAB,KLOR-CON) CR tablet 20-50 mEqJump to med 20-50 mEq, oral, As needed, for potassium replacement, Starting on Tue07/16/24 at 1753, Progress to oral potassium replacement when patient tolerating oral intake. If dose administered, recheck potassium level 4 hours after last dose. For potassium level 3.4 to 3.8 mmol/L and Serum Creatinine 1.2 or less=30 mEq. For potassium level 3.1 to 3.3 mmol/L and Serum Creatinine 1.2 or less=40 mEq. For potassium level 3 mmol/L or less and Serum Creatinine 1.2 or less=50 mEq. For potassium level 3.4 to 3.8 mmol/L and Serum Creatinine greater than 1.2=20 mEq. For potassium level 3.1 to 3.3 mmol/L and Serum Creatinine greater than 1.2=30 mEq. For potassium level 3 mmol/L or less and Serum Creatinine greater than 1.2=40 mEq. Do not crush or chew. Or potassium chloride (KAYCIEL) 20 mEq/15 mL solution 20-50 mEqJump to med 20-50 mEq, oral, As needed, potassium replacement, Starting on Tue07/16/24 at 1753, Progress to oral potassium replacement when patient tolerating oral intake. If dose administered, recheck potassium level 4 hours after last dose. For potassium level 3.4 to 3.8 mmol/L and Serum Creatinine 1.2 or less=30 mEq (22.5mL). For potassium level 3.1 to 3.3 mmol/L and Serum Creatinine 1.2 or less=40 mEq (30mL). For potassium level 3 mmol/L or less and Serum Creatinine 1.2 or less=50 mEq (37.5mL). For potassium level 3.4 to 3.8 mmol/L and Serum Creatinine greater than 1.2=20 mEq (15mL). For potassium level 3.1 to 3.3 mmol/L and Serum Creatinine greater than 1.2=30 mEq (22.5mL). For potassium level 3 mmol/L or less and Serum Creatinine greater than 1.2=40 mEq (30mL). Must dilute before use - Mix in 3-8 ounces of water or juice before administration When administering in feeding tube, flush before and after per policy and monitor potassium levels Group 4: potassium chloride IVPB 10 mEq/50 mL in water (0.2 mEq/mL premix)Jump to med 10 mEq, intravenous, at 50 mL/hr, Administer over 1 Hours, As needed, for potassium replacement, Starting on Tue07/16/24 at 1753, Administer Potassium Chloride IVPB in 10 mEq increments. Maximum infusion rates: Central Line = 20 mEq/hour. Administer via Central Line Only. If dose administered, recheck potassium level 1 hour after infusion complete. For potassium level 3.4 to 3.8 mmol/L and Serum Creatinine 1.2 or less = 30 mEq For potassium level 3.1 to 3.3 mmol/L and Serum Creatinine 1.2 or less = 40 mEq For potassium level 3 mmol/L or less and Serum Creatinine 1.2 or less = 50 mEq For potassium level 3.4 to 3.8 mmol/L and Serum Creatinine greater than 1.2 = 20 mEq For potassium level 3.1 to 3.3 mmol/L and Serum Creatinine greater than 1.2 = 30 mEq For potassium level 3 mmol/L or less and Serum Creatinine greater than 1.2 = 40 mEq VESICANT (YELLOW) Or potassium chloride IVPB 10 mEq/100 mL in water (0.1 mEq/mL premix)Jump to med 10 mEq, intravenous, at 100 mL/hr, Administer over 60 Minutes, As needed, for potassium replacement, Starting on Tue07/16/24 at 1753, Administer Potassium Chloride IVPB in 10 mEq increments. Maximum infusion rates: Central Line = 20 mEq/hour; Peripheral Line = 10 mEq/hour (10 mEq/100 mL). If dose administered, recheck potassium level 1 hour after infusion complete. For potassium level 3.4 to 3.8 mmol/L and Serum Creatinine 1.2 or less = 30 mEq For potassium level 3.1 to 3.3 mmol/L and Serum Creatinine 1.2 or less = 40 mEq For potassium level 3 mmol/L or less and Serum Creatinine 1.2 or less = 50 mEq For potassium level 3.4 to 3.8 mmol/L and Serum Creatinine greater than 1.2 = 20 mEq For potassium level 3.1 to 3.3 mmol/L and Serum Creatinine greater than 1.2 = 30 mEq For potassium level 3 mmol/L or less and Serum Creatinine greater than 1.2 = 40 mEq VESICANT (YELLOW) Infuse each 10 mEq over a minimum of 1 hour. Group 5: sodium phosphate 20 mmol in sodium chloride 0.9 % 250 mL IVPBJump to med 20 mmol, intravenous, at 42.8 mL/hr, Administer over 6 Hours, As needed, for phosphorous level 2.3 mg/dL or less, Starting on Tue07/16/24 at 1753, Administer over 6 hours via dedicated line (peripheral line). If administered, recheck phosphorus level 4 hours after infusion complete. Or sodium phosphate 20 mmol in sodium chloride 0.9 % 100 mL IVPBJump to med 20 mmol, intravenous, at 26.7 mL/hr, Administer over 4 Hours, As needed, for phosphorous level 2.3 mg/dL or less, Starting on Tue07/16/24 at 1753, Administer over 4 hours via dedicated line(central line). If administered, recheck phosphorus level 4 hours after infusion complete. Infuse using central line access. Or sod phos di, mono-K phos mono (K-PHOS NEUTRAL) 250 mg tablet 2 tabletJump to med 2 tablet, oral, As needed, for phosphorous level 2.3 mg/dL or less, Starting on Tue07/16/24 at 1753, If dose administered, recheck phosphorus level 4 hours after last dose. Look-alike/sound-alike medication - verify indication for use. Give with a full glass of water. FOR RECORDS PERTAINING TO PATIENTS WHO ARE [...] BE BASED ON THE PRIMARY CLINICAL RECORDS. [employer] provides no warranty or guarantee of the accuracy or completeness of information in this document.
--- NOTE | 2025-01-10 14:55 | PM.WCHP ---
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 He complains of pain beneath the right fifth metatarsal at the site of a recurrent callus. His elongated toenails also cause pain. [facility] Medical History (Updated 01/10/25 @ 14:56 by AGAPITO Alexander) Cellulitis of lower extremity ?L03.119 - Cellulitis of unspecified part of limb (ICD-10) Peripheral vascular disease ?I73.9 - Peripheral vascular disease, unspecified (ICD-10) Seasonal allergies ?J30.2 - Other seasonal allergic rhinitis (ICD-10) Arthritis ?M19.90 - Unspecified osteoarthritis, unspecified site (ICD-10) COVID-19 ?U07.1 - COVID-19 (ICD-10) High cholesterol ?E78.00 - Pure hypercholesterolemia, unspecified (ICD-10) Hypertension ?I10 - Essential (primary) hypertension (ICD-10) Typical angina ?I20.9 - Angina pectoris, unspecified (ICD-10) Neuropathy ?G62.9 - Polyneuropathy, unspecified (ICD-10) Colon polyp ?K63.5 - Polyp of colon (ICD-10) Hammertoe ?M20.40 - Other hammer toe(s) (acquired), unspecified foot (ICD-10) Bunionette ?M21.629 - Bunionette of unspecified foot (ICD-10) Surgical History (Updated 02/21/23 @ 13:00 by Janey Norman NP) History of colonoscopy ?Z98.890 - Other specified postprocedural states (ICD-10) H/O colectomy (2003) ?Z90.49 - Acquired absence of other specified parts of digestive tract (ICD-10) History of ankle surgery ?Z98.890 - Other specified postprocedural states (ICD-10) History of carpal tunnel release ?Z98.890 - Other specified postprocedural states (ICD-10) S/P cataract extraction and insertion of intraocular lens ?Z98.49 - Cataract extraction status, unspecified eye (ICD-10) ?Z96.1 - Presence of intraocular lens (ICD-10) History of cardiac catheterization ?Z98.890 - Other specified postprocedural states (ICD-10) Family History (Updated 02/21/23 @ 13:00 by Janey Norman NP) Other Family history of breast cancer Family history of heart disease Family history of stroke Social History (Updated 02/21/23 @ 12:55 by Janey Norman NP) Within the past year, how often did you have a drink containing alcohol: monthly or less Smoking status: Never smoker Non-prescribed substance use: denies use Highest level of school completed/degree received: high school graduate Meds Home Medications and Allergies Home Medications ?Medication ?Instructions ?Recorded ?Confirmed ?Type acetaminophen 500 mg tablet 500 mg PO Q6H PRN pain 02/21/23 03/07/23 History atorvastatin 40 mg tablet 40 mg PO DAILY 02/21/23 03/07/23 History gabapentin 300 mg capsule 300 mg PO Q12H 02/21/23 03/07/23 History isosorbide mononitrate 30 mg 30 mg PO DAILY 02/21/23 03/07/23 History tablet,extended release 24 hr metoprolol tartrate 25 mg tablet 25 mg PO BID 02/21/23 03/07/23 History nitroglycerin 0.4 mg sublingual 0.4 mg buccal Q5M PRN chest pain 02/21/23 03/07/23 History tablet cefadroxil 500 mg capsule 500 mg PO BID 7 days #14 caps 03/07/23 Rx ondansetron 4 mg disintegrating 4 mg PO Q8H PRN nausea and 03/07/23 Rx tablet vomiting 5 days #15 tabs oxycodone-acetaminophen 5 mg-325 1 tab PO Q6H PRN pain 7 days #28 03/07/23 Rx mg tablet (Percocet) tabs sennosides 8.6 mg tablet (Senna 8.6 mg PO DAILY PRN constipation 7 03/07/23 Rx Laxative) days #7 tabs Allergies Allergy/AdvReac Type Severity Reaction Status Date / Time No Known Drug Allergies Allergy Verified 03/07/23 07:54 Exam Narrative: Exam Narrative: Derm: cluster of keratotic lesions beneath the 3rd metatarsal head on the left. Skin is intact at base. No open lesions. Toenails 1-10 are elongated, thickened, and dystrophic. Skin of both feet is diffusely dry. Neuro: protective sensation absent to monofilament testing in 5/5 areas tested on each foot. Vibratory sensation present but decreased. Achilles DTRs 1+ bilaterally Vasc: DP pulses 2/4 bilaterally, PT pulses nonpalpable bilaterally. Brisk cap refill. Digital hair absent bilaterally. Superficial varicosities present bilateral lower legs. MSK: Tailor's bunion deformity noted on the right. Contractures of the lesser toes bilaterally. Assessment and Plan Assessment and Plan (1) Tinea unguium: (2) Diminished pulses in lower extremity: (3) Hypothyroid neuropathy: (4) Type 2 diabetes mellitus with diabetic neuropathy, unspecified: (5) Pain around toenail: Plan Routine nail and callus care performed. Follow-up in 3 months. Acute Procedures Podiatry Nail Debridement Class B Findings Absent posterior tibial pulse: bilateral Advanced trophic changes as evidenced by any three of the following: decreased hair growth, nail changes (thickening), pigmentary changes (discoloring) and skin texture (thin or shiny) Class C Findings Claudication: No Temperature changes: No Edema: No Nail debridement paresthesia (abnormal spontaneous sensations in the feet): No Burning: No Qualifies If: Qualifiers If:: A patient qualifies for nail debridement if they have: 1 class A finding (Q7) 2 class B findings (Q8) OR 1 class B & 2 class C findings in addition to a primary condition (Q9) Nail Procedure Nail Procedure Time out: Yes Nail procedure: other (Sharp toenail debridement toes 1 through 10. Paring of callus beneath the right fifth metatarsal head) Number of affected nails: 10 Location (toes): left and right Procedure successful: Yes Patient tolerated procedure: well and no complications Additional comments: Toenails 1 through 10 were sharply debrided with nail nippers without incident. Callus beneath the right fifth metatarsal head was pared with a dermal curette to the patient satisfaction. He noted pain relief postprocedure.
== END 2025-01-10 14:34 | disposition home or self-care (01) ==
LOC: WC 14:34
PROVIDERS: PCP Family Medicine; Visit Provider Physician Assistant
DX: B35.1 Tinea unguium (principal); R09.89 Other specified symptoms and signs involving the circulatory and respiratory systems; G62.9 Polyneuropathy, unspecified; E11.40 Type 2 diabetes mellitus with diabetic neuropathy, unspecified; M79.676 Pain in unspecified toe(s)
CPT/HCPCS: 11721